=== PATIENT | male | born 1970 | race Two or more races ===

== ENCOUNTER 2020-06-18 18:02 | Outpatient (REF) | payer OTHER, SELFPAY ==
[2020-06-18 18:48] LABS: Amphetamine Screen Urine Not Detected (Not Detect); Barbiturates, Urine Not Detected (Not Detect); Benzodiazepines Screen Urine Not Detected (Not Detect); Cannabinoid Screen Urine POSITIVE (Not Detect); Cocaine Screen Urine Not Detected (Not Detect); Opiate Screen Urine Not Detected (Not Detect); Phencyclidine Screen Urine Not Detected (Not Detect)
== END 2020-06-18 18:03 | disposition home or self-care (01) ==
LOC: HO.LNP 18:02
PROVIDERS: Visit Provider Hospitalist
DX: F19.11 Other psychoactive substance abuse, in remission (principal)
CPT/HCPCS: 80307

== ENCOUNTER 2020-06-28 09:03 | Day surgery (SDC) | payer OTHER, SELFPAY ==
--- NOTE | 2020-06-25 10:23 | P.CONAN_ITS ---
Documented by User: Glory Tony 06/25/20 10:35 HPI - Anesthesia Eval Consult details Narrative: 50yo M for EGD last EGD 01/2020 with [facility] Past Medical History Medical History (Updated 06/25/20 @ 10:34 by Glory Tony) Anemia Arthritis Asthma Cellulitis COPD (chronic obstructive pulmonary disease) Dysphagia Hepatitis C Hiatal hernia History of drug abuse HTN (hypertension) Sciatica Family History Family History Father Diabetes Hypertension Mother Hypertension Surgical History Surgical History History of appendectomy History of laparoscopy Social History Social History Smoking Status: Never smoker Second Hand Smoke Exposure: No Use of substances other than those prescribed or required for medical reasons: Yes Advance Directives: No Advance Directives Information Provided: Yes Advance Directives on File: No Meds Allergies Allergy/AdvReac Type Severity Reaction Status Date / Time milk [MILK] Allergy Severe enterocolit Verified 06/18/20 13:47 is amoxicillin [From AUGMENTIN] Allergy Intermediate N/V Verified 06/18/20 13:47 clavulanic acid Allergy Intermediate N/V Verified 06/18/20 13:47 [From AUGMENTIN] wheat [WHEAT] Allergy Intermediate enterocolit Verified 06/18/20 13:47 is naproxen [NAPROXEN] Allergy Mild ULCERS Verified 06/18/20 13:47 NSAIDS (Non-Steroidal Allergy Unknown stomach Verified 06/18/20 13:47 Anti-Inflamma upset [NSAIDS] ibuprofen [From MOTRIN] AdvReac Mild ULCERS Verified 06/18/20 13:47 Home Medications Medication Instructions Recorded Confirmed Type albuterol sulfate 90 mcg/actuation 2 puff INHALATION Q6H PRN 06/11/20 History aerosol inhaler famotidine 40 mg tablet 40 mg PO BEDTIME 06/11/20 History ipratropium 0.5 mg-albuterol 3 mg 3 ml INHALATION Q6H PRN ml 06/11/20 History (2.5 mg base)/3 mL nebulization soln losartan 50 mg-hydrochlorothiazide 1 tab PO DAILY 06/11/20 History 12.5 mg tablet amlodipine 10 mg tablet 10 mg PO DAILY 06/18/20 06/18/20 History loratadine 10 mg tablet 10 mg PO DAILY 06/18/20 06/18/20 History montelukast 10 mg tablet 10 mg PO BEDTIME 06/18/20 06/18/20 History Exam Exam Date and Time: June 25, 2020 1023 Pertinent Lab Results Pertinent Lab Results: Laboratory Tests 03/16/20 03/16/20 02:13 02:13 WBC 12.9 H Hgb 13.0 L Hct 40.4 L Plt Count 200 Sodium 139 Potassium 4.3 Chloride 102 BUN 9 Creatinine 1.03 Narrative Narrative: EKG 2019: ST@102 Assessment and Plan Assessment Anesthesia Assessment: Chart Reviewed Documented by User: Korin Mathur 06/28/20 09:34 [facility] Past Medical History Medical History (Updated 06/25/20 @ 10:34 by Glory Tony) Anemia Arthritis Asthma Cellulitis COPD (chronic obstructive pulmonary disease) Dysphagia Hepatitis C Hiatal hernia History of drug abuse HTN (hypertension) Sciatica Family History Family History Father Diabetes Hypertension Mother Hypertension Surgical History Surgical History History of appendectomy History of laparoscopy Social History Social History Smoking Status: Never smoker Second Hand Smoke Exposure: No Use of substances other than those prescribed or required for medical reasons: Yes Advance Directives: No Advance Directives Information Provided: Yes Advance Directives on File: No Meds Allergies Allergy/AdvReac Type Severity Reaction Status Date / Time milk [MILK] Allergy Severe enterocolit Verified 06/18/20 13:47 is amoxicillin [From AUGMENTIN] Allergy Intermediate N/V Verified 06/18/20 13:47 clavulanic acid Allergy Intermediate N/V Verified 06/18/20 13:47 [From AUGMENTIN] wheat [WHEAT] Allergy Intermediate enterocolit Verified 06/18/20 13:47 is naproxen [NAPROXEN] Allergy Mild ULCERS Verified 06/18/20 13:47 NSAIDS (Non-Steroidal Allergy Unknown stomach Verified 06/18/20 13:47 Anti-Inflamma upset [NSAIDS] ibuprofen [From MOTRIN] AdvReac Mild ULCERS Verified 06/18/20 13:47 Home Medications Medication Instructions Recorded Confirmed Type albuterol sulfate 90 mcg/actuation 2 puff INHALATION Q6H PRN 06/11/20 History aerosol inhaler famotidine 40 mg tablet 40 mg PO BEDTIME 06/11/20 History ipratropium 0.5 mg-albuterol 3 mg 3 ml INHALATION Q6H PRN ml 06/11/20 History (2.5 mg base)/3 mL nebulization soln losartan 50 mg-hydrochlorothiazide 1 tab PO DAILY 06/11/20 History 12.5 mg tablet amlodipine 10 mg tablet 10 mg PO DAILY 06/18/20 06/18/20 History loratadine 10 mg tablet 10 mg PO DAILY 06/18/20 06/18/20 History montelukast 10 mg tablet 10 mg PO BEDTIME 06/18/20 06/18/20 History Exam Airway Mallampati Class: II TM Dist: >3cm Neck ROM: Full Loose/Missing/Broken Teeth: Yes (Missing a couple laterally) Heart: RrR Lungs: decreased breath Bs Assessment and Plan Assessment Anesthesia Assessment: Anesthesia Plan Discussed and Chart Reviewed Final Anesthetic Review NPO: Yes ASA Class: III Final Preanesthetic Review: Meds/Allgs Chart Reviewed and Consent Obtained/Reviewed Patient Risk: Intermediate Procedure Risk: Intermediate Anesthetic Plan Anesthetic Plan: MAC: Disposition: Standard PACU
[2020-06-25 14:48] VITALS: BMI 29.2
[2020-06-28 09:15] VITALS: BMI 39.9
[2020-06-28 09:34] VITALS: BP 151/107; PULSE 114; RESP 20; TEMP 35.8; O2SAT 94
[2020-06-28] MEDS: Lactated Ringers 1,000 ML 100 ML IVCONT (10:01)
[2020-06-28] MEDS: Metoclopramide HCl 10 MG/2 ML VIAL IVPUSH (10:21)
[2020-06-28 10:24] LABS: Amphetamine Screen Urine Not Detected (Not Detect); Barbiturates, Urine Not Detected (Not Detect); Benzodiazepines Screen Urine Not Detected (Not Detect); Cannabinoid Screen Urine Not Detected (Not Detect); Cocaine Screen Urine Not Detected (Not Detect); Opiate Screen Urine POSITIVE (Not Detect); Phencyclidine Screen Urine Not Detected (Not Detect)
--- NOTE | 2020-06-28 10:24 | MHC.SHP ---
Pre-Procedural Eval Section B Chief Complaint: Dysphagia Details of Present Illness: worsening dysphagia for 2 weeks, mostly soldis but also occ liquids, also noted worsening upper abdo pain, with nausea and vomiting, not responding to carafate, zofran Relevant Family History (Specify if Yes): No Relevant Social History: Other (specify) (ex IVDA) Present Medications: see Short Stay Collaborative assessment Medical History: Significant History (asthma, hep c, HTN, sciatica. food allergies) History of Previous Operations: Relevant previous surgery/procedure and date(s) (ex lap) Allergies: Allergies Allergy/AdvReac Type Severity Reaction Status Date / Time milk [MILK] Allergy Severe enterocolit Verified 06/18/20 13:47 is amoxicillin [From AUGMENTIN] Allergy Intermediate N/V Verified 06/18/20 13:47 clavulanic acid Allergy Intermediate N/V Verified 06/18/20 13:47 [From AUGMENTIN] wheat [WHEAT] Allergy Intermediate enterocolit Verified 06/18/20 13:47 is naproxen [NAPROXEN] Allergy Mild ULCERS Verified 06/18/20 13:47 NSAIDS (Non-Steroidal Allergy Unknown stomach Verified 06/18/20 13:47 Anti-Inflamma upset [NSAIDS] ibuprofen [From MOTRIN] AdvReac Mild ULCERS Verified 06/18/20 13:47 Review of Systems Sugical H&P ROS: Negative: Constitution, Cardiovascular, Respiratory, Neurological, Psychiatric, Hem-Onc, Allergic/Immunologic, Genitourinary, Musculoskeletal, Integumentary, Endocrine and Eyes/Ears/Nose/Throat and Yes, Specify: Gastrointestinal (as above) Exam Surgical H&P Exam: Normal: HEENT, Normal: Heart, Normal: Lungs, Normal: Extremities, Normal: Skin and Normal: Neurological and Significant Findings: Abdomen (small umbilical hernia, incisional hernia, scar) Plan Diagnosis/Plan: Unchanged Patient has been examined and remains a candidate for the planned procedure--EGD, dilation possible push enteroscopy
--- NOTE | 2020-06-28 10:26 | PM.OP ---
Brief Operative Note Date of procedure: 06/28/20 Pre-op diagnosis: dysphagia, abdo pain Post-op diagnosis: same Procedure: egd, see op note Surgeon: Ellen Swift MD Anesthesia: MAC Estimated blood loss (mL): 0 Condition: stable Disposition: PACU
--- NOTE | 2020-06-28 10:27 | W.PM.OPN ---
Operative Note Operative Note Narrative: Procedure Description: EGD FLEXIBLE TRANSORAL UPPER GASTROINTESTINAL ENDOSCOPY UPPER ENDOSCOPY Consent: Indications for the procedure and potential complications of bleeding, perforation, reaction to medications and missed diagnosis were discussed with the patient and informed consent was obtained. Instrument: Olympus GIF H 190 J mid size upper endoscope Monitoring: Vital signs and clinical assessment, continuous EKG monitoring, Pulse oximetry, Carbon Dioxide monitoring and blood pressure monitoring were done throughout the procedure. Procedure: The patient was placed in the left lateral decubitis position and pre-procedure medications were administered and a bite block was placed. The endoscope was inserted into the mouth and advanced under direct vision to the third part of duodenum. A careful inspection was made as the upper endoscope was withdrawn including a retroflexed examination of the proximal stomach; Findings and interventions are described below. Findings: Larynx:normal Esophagus: GE junction at 42 cm, diaphragm hiatus at 42 cm, ridging of esophagus noted which may be seen in EoE so bx taken from distal and proximal esophagus in seperate jars, also empirical dilation first with 17 mm bougie then 19 mm over savary wire, no tears seen Stomach: Patchy gastric erythema. Biopsies were obtained. Grade 2 flap valve on retroflexed examination of the cardia. Duodenum: Normal bulb and descending duodenum, bx taken Intervention: Biopsies as noted above, dilation Impression/Findings: gastritis possible EoE PLAN: diet as tolerated today if bx neg and sx persist then manometry testing CT abdoemn given abdominal pain can use linaclotide for constipation
--- NOTE | 2020-06-28 11:17 | PC.NURSE ---
DURRING EGD PT IV DISLOGED. NEW IV # 20 ANGIO RESTARTED BY ANESTHESIA IN LEFT AC.
[2020-06-28 11:23] VITALS: BP 106/72; PULSE 105; RESP 16; TEMP 36.6; O2SAT 93
[2020-06-28 11:50] VITALS: BP 140/92; PULSE 97; TEMP 36.6; O2SAT 94
--- NOTE | 2020-06-28 12:05 | HO.POSTANES ---
Post Anesthesia Evaluation Post Anesthesia Evaluation Vital Signs: Vital Signs Temp Pulse Resp BP Pulse Ox 06/28/20 11:23 97.9 F 105 H 16 106/72 93 06/28/20 09:34 96.5 F L 114 H 20 151/107 H 94 Anesthesia: Monitored Mental Status: Awake Pain Control: Satisfactory Nausea/Vomiting: None Hydration: Adequate Anesthesia-Related Issues: No Anes. Related Issues
== END 2020-06-28 12:32 | disposition home or self-care (01) ==
PROVIDERS: Nurse Practitioner; Visit Provider Internal Medicine Gastroenterology
PROC: 0DJ08ZZ Inspection of Upper Intestinal Tract, Via Natural or Artificial Opening Endoscopic (ICD-10-PCS; CPT 43235; principal; 2020-06-28 10:00)
DX: R13.10 Dysphagia, unspecified (principal); K29.80 Duodenitis without bleeding; K29.50 Unspecified chronic gastritis without bleeding; K21.00 Gastro-esophageal reflux disease with esophagitis, without bleeding; K44.9 Diaphragmatic hernia without obstruction or gangrene; J44.9 Chronic obstructive pulmonary disease, unspecified; I10 Essential (primary) hypertension; Z86.19 Personal history of other infectious and parasitic diseases; F11.20 Opioid dependence, uncomplicated; Z79.51 Long term (current) use of inhaled steroids; Z79.899 Other long term (current) drug therapy; Z88.1 Allergy status to other antibiotic agents; Z88.8 Allergy status to other drugs, medicaments and biological substances
CPT/HCPCS: 43248; 43239; 80307; 88305; 88313; 88341; 88342; C1769; J2250; J2765

== ENCOUNTER 2020-07-06 08:36 | Emergency (ER) | payer OTHER, SELFPAY ==
[2020-07-06 08:46] VITALS: BP 168/111; PULSE 98; RESP 20; TEMP 36.8; O2SAT 95; BMI 39.9
--- NOTE | 2020-07-06 09:12 | ED_ITS ---
HPI - Abdominal Pain General Chief Complaint: Abdominal Pain Stated Complaint: abd pain, vomiting Time Seen by Provider: 07/06/20 08:47 Source: patient Mode of arrival: ambulatory Limitations: no limitations History of Present Illness HPI narrative: 50 yo male with past medical history anemia, arthritis, asthma, COPD, hepatitis C, H/o IVDA, HTN, sciatica, hiaital hernia, dysphagia here with abdominal pain and vomiting x 3-4 days. Pt tells me he has chronic abdominal pain and is followed by Dr Swift. Being w/u for chronic abdominal pain, vomiting thought to be gastritis or EoE. Is currently on pepcid 40mg daily, carafate BID. Started linzess five days ago for symptoms of abdominal pain. Patient also tells me he is being treated for an acute on chronic LLE cellulitis. Has been on a several different antibiotics this month. Started minocyline 07/02 by dermatology. patient tells me acute on chronic abdominal pain since starting this with associated vomiting. NO diarrhea/urinary symptoms/fevers/chills. MD elicited complaint: abdominal pain Onset (ago): month(s) Pain Consistency: intermittent Location: diffuse Severity: mild Quality: cramping Radiation: none Migration to: no migration Exacerbating factors: medication Relieving factors: vomiting Associated symptoms: denies other symptoms Related Data Home Medications Medication Instructions Recorded Confirmed famotidine 40 mg tablet 40 mg PO BEDTIME 06/11/20 ipratropium 0.5 mg-albuterol 3 mg 3 ml INHALATION Q6H PRN ml 06/11/20 (2.5 mg base)/3 mL nebulization soln losartan 50 mg-hydrochlorothiazide 1 tab PO DAILY 06/11/20 12.5 mg tablet amlodipine 10 mg tablet 10 mg PO DAILY 06/18/20 06/18/20 loratadine 10 mg tablet 10 mg PO DAILY 06/18/20 06/18/20 Previous Rx's Medication Instructions Recorded sucralfate 100 mg/mL oral 10 ml PO BID #420 ml 06/22/20 suspension linaclotide 290 mcg capsule 290 mcg PO QAM 30 Days #30 cap 06/29/20 pantoprazole 40 mg tablet,delayed 40 mg PO BID #60 tab 06/29/20 release montelukast 10 mg tablet 10 mg PO BEDTIME #90 tab 07/01/20 albuterol sulfate 90 mcg/actuation 2 puff PO Q6H PRN #6.7 g 07/02/20 aerosol inhaler ondansetron HCl 4 mg tablet 4 mg PO Q8H #60 tab 07/05/20 sucralfate [Carafate] 10 ml PO QID #200 ml 07/06/20 Allergies Allergy/AdvReac Type Severity Reaction Status Date / Time milk [MILK] Allergy Severe enterocolit Verified 06/18/20 13:47 is amoxicillin [From AUGMENTIN] Allergy Intermediate N/V Verified 06/18/20 13:47 clavulanic acid Allergy Intermediate N/V Verified 06/18/20 13:47 [From AUGMENTIN] wheat [WHEAT] Allergy Intermediate enterocolit Verified 06/18/20 13:47 is naproxen [NAPROXEN] Allergy Mild ULCERS Verified 06/18/20 13:47 NSAIDS (Non-Steroidal Allergy Unknown stomach Verified 06/18/20 13:47 Anti-Inflamma upset [NSAIDS] ibuprofen [From MOTRIN] AdvReac Mild ULCERS Verified 06/18/20 13:47 Review of Systems Review of Systems Yes all other systems are reviewed and are negative Constitutional: Reports no additional constitutional complaints, Denies body ache(s), Denies chills, Denies fever(s), Denies headache(s) and Denies weakness Eyes: Reports no additional eye complaints and Denies change in vision Reports system reviewed and no additional complaints, except as documented, Denies dizziness, Denies headache(s), Denies nasal congestion, Denies nasal discharge and Denies neck pain Cardiovascular: Reports no additional cardiovascular complaints, Denies chest pain, Denies leg edema and Denies dyspnea Respiratory: Reports no additional respiratory complaints, Denies cough and Denies dyspnea Gastrointestinal: Reports no additional gastrointestinal complaints, Reports abdominal pain, Denies diarrhea, Reports nausea and Reports vomiting Genitourinary: Denies urinary incontinence Musculoskeletal: Reports no additional musculoskeletal complaints, Denies back pain, Denies arthralgias, Denies joint swelling, Denies neck pain, Denies numbne ss and Denies tingling Skin/Breast: Reports system reviewed and no additional complaints, except as docu and Denies rash Reports system reviewed and no additional complaints, except as documented, Denies Abnormal speech present, Denies dizziness, Denies headache(s), Denies numbness, Denies tingling and Denies weakness Physical Exam Vital Signs: Vital Signs: Vital Signs Temp Pulse Resp BP Pulse Ox 07/06/20 10:34 91 20 153/113 H 95 07/06/20 08:46 98.2 F 98 20 168/111 H 95 Body Mass Index 39.9 Const: General: cooperative, healthy appearing, comfortable and no acute distress Orientation/consciousness: patient oriented x3 Limitations: no limitations HENMT: Head: Yes normal to inspection Ears: hearing grossly normal bilaterally General nose exam: Normal external nose present Face and sinus: Yes normal facial exam Mouth: Normal oral and palatal mucosa present Throat: Yes posterior oropharynx normal Eyes: General: appearance normal, both eyes and all related structures Pupils: Equal, round and reactive pupils present Neck: Neck: Yes normal visual inspection Chest: Chest palpation & inspection: normal inspection of the chest Resp: Effort & Inspection: normal respiratory effort Auscultation: clear to auscultation bilaterally Cardio: Rate: regular rate Rhythm: regular rhythm Peripheral pulses: Peripheral pulses 2+ throughout GI: Other: Mild diffuse tenderness. No focal tenderness Inspection: Yes normal to inspection Palpation (GI): Soft to palpation and nontender Auscultation: normal bowel sounds Back/Spine/Pelvis: Thoracic/Lumbar Spine: thoracic and lumbar spine normal to inspection Skin: General skin exam: no rashes or lesions noted Neuro: General: patient oriented x3, no focal motor deficits and normal sensation to monofilament Cranial nerves: Yes Equal, round and reactive pupils present Cognition (Neuro): normal cognition Speech: No Abnormal speech present Gait exam (Neuro): Normal gait present Motor exam (neuro): 5/5 motor strength present throughout Extrem: General: Yes normal to inspection Course Course Course Narrative: 50 here male here with diffuse AP, vomiting acute on chronic since starting minocycline for a LLE cellulitis. WIll check labs, UA. Give NSB, antiemetic, PPI and GI cocktail. 1210-labs unremarkable. UA negative. The patient is feeling improved on discharge. Tolerating [place] josh with no issues. Repeat abdominal exam benign, soft and nontender. Likely some gastritis secondary to recent antibiotic use. We discussed discontinuing his antibiotic. 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 We will increase his Carafate to 4 times daily. Have him do a mild diet and continue all his other medications. Have him follow-up with his GI doctor has on. Reviewed worrisome signs and symptoms and when to return to the emergency department. Comfortable discharge home. MDM - Abdominal Pain MDM Narrative Medical decision making narrative: Considered PUD, gastritis, gerd Medical Records Attestation: I reviewed the patient's medical records. Lab Data Attestation: I reviewed the patient's lab results. Result diagrams: 07/06/20 09:06 07/06/20 09:06 Labs: Lab Results 07/06/20 07/06/20 07/06/20 Range/Units 09:06 09:06 09:06 WBC 10.9 H (4.8-10.8) X10*3/uL RBC 4.30 L (4.60-5.80) X10*6/uL Hgb 13.7 L (14.0-18.0) g/dl Hct 41.5 L (42-52) % MCV 96.5 (80-98) fL MCH 31.9 (27.0-33.0) pg MCHC 33.0 (31.0-36.0) g/dl RDW 12.9 (11.0-16.0) % Plt Count 210 (160-400) X10*3/uL MPV 10.9 (9.4-12.4) fL Immature Gran % (Auto) 0.9 H (0.0-0.4) % Neut % (Auto) 53.0 (45-73) % Lymph % (Auto) 30.1 (20-40) % [place] % (Auto) 8.6 (2-11) % Eos % (Auto) 6.7 H (0-4) % Baso % (Auto) 0.7 (0-2) % Lymph # (Auto) 3.3 (1.2-4.9) X10*3/uL [place] # (Auto) 0.9 (0.1-1.2) X10*3/uL Eos # (Auto) 0.7 H (0.0-0.4) X10*3/uL Baso # (Auto) 0.1 (0.0-0.2) X10*3/uL Abs Immat Gran (auto) 0.10 H (0.00-0.03) X10*3/uL Absolute Neuts (auto) 5.8 (2.0-8.3) X10*3/uL Absolute Nucleated RBC 0.000 (0.0-0.012) X10*3/uL Nucleated RBC % (auto) 0.0 (0.0-0.2) /100WBC Hold Blue Top SEE NOTE Sodium 139 (135-145) mmol/L Potassium 4.0 (3.3-5.1) mmol/l Chloride 101 (96-108) mmol/L Carbon Dioxide 29 (22-29) mmol/L Anion Gap 13 (12-20) BUN 19 H (9-16) mg/dL Creatinine 0.96 (0.5-1.4) mg/dL Estim Creat Clear Calc 110.6 Estimated GFR > 60 Random Glucose 227 H (60-115) mg/dL Calcium 9.2 (8.4-10.2) mg/dL Total Bilirubin 0.5 (0.0-1.0) mg/dL Direct Bilirubin (0.0-0.5) mg/dL AST 28 (5-37) U/L ALT 37 (0-40) U/L Alkaline Phosphatase 119 H (39-117) U/L Total Protein 7.3 (6.5-8.0) g/dL Albumin 4.3 (3.5-5.0) g/dL Lipase 27 (8-78) U/L 07/06/20 Range/Units 09:06 WBC (4.8-10.8) X10*3/uL RBC (4.60-5.80) X10*6/uL Hgb (14.0-18.0) g/dl Hct (42-52) % MCV (80-98) fL MCH (27.0-33.0) pg MCHC (31.0-36.0) g/dl RDW (11.0-16.0) % Plt Count (160-400) X10*3/uL MPV (9.4-12.4) fL Immature Gran % (Auto) (0.0-0.4) % Neut % (Auto) (45-73) % Lymph % (Auto) (20-40) % [place] % (Auto) (2-11) % Eos % (Auto) (0-4) % Baso % (Auto) (0-2) % Lymph # (Auto) (1.2-4.9) X10*3/uL [place] # (Auto) (0.1-1.2) X10*3/uL Eos # (Auto) (0.0-0.4) X10*3/uL Baso # (Auto) (0.0-0.2) X10*3/uL Abs Immat Gran (auto) (0.00-0.03) X10*3/uL Absolute Neuts (auto) (2.0-8.3) X10*3/uL Absolute Nucleated RBC (0.0-0.012) X10*3/uL Nucleated RBC % (auto) (0.0-0.2) /100WBC Hold Blue Top Sodium (135-145) mmol/L Potassium (3.3-5.1) mmol/l Chloride (96-108) mmol/L Carbon Dioxide (22-29) mmol/L Anion Gap (12-20) BUN (9-16) mg/dL Creatinine (0.5-1.4) mg/dL Estim Creat Clear Calc Estimated GFR Random Glucose (60-115) mg/dL Calcium (8.4-10.2) mg/dL Total Bilirubin 0.5 (0.0-1.0) mg/dL Direct Bilirubin 0.2 (0.0-0.5) mg/dL AST 28 (5-37) U/L ALT 37 (0-40) U/L Alkaline Phosphatase 119 H (39-117) U/L Total Protein 7.3 (6.5-8.0) g/dL Albumin 4.3 (3.5-5.0) g/dL Lipase (8-78) U/L Discharge Plan Discharge Clinical Impression: Gastritis Patient Disposition: Home, Self-Care Instructions: Gastritis (ED) Additional Instructions: Continue your medications with the exception of minocycline. Please stop this and call your chrome plater helper to have it changed to a different antibiotic. I am increasing her Carafate to 4 times daily from twice daily. Call Dr. Swift for follow-up if no improvement in several days Prescriptions: New sucralfate [Carafate] 100 mg/mL suspension 10 ml PO QID Qty: 200 RF: 0 No Action sucralfate [Carafate] 100 mg/mL suspension 10 ml PO BID Qty: 420 RF: 2 Linzess 290 mcg capsule 290 mcg PO QAM 30 Days Qty: 30 RF: 3 pantoprazole 40 mg tablet,delayed release (DR/EC) 40 mg PO BID Qty: 60 RF: 3 montelukast 10 mg tablet 10 mg PO BEDTIME Qty: 90 RF: 11 albuterol sulfate 90 mcg/actuation HFA aerosol inhaler 2 puff PO Q6H PRN (Reason: shortness of breath or wheezing) Qty: 6.7 RF: 1 ondansetron HCl [Zofran] 4 mg tablet 4 mg PO Q8H Qty: 60 RF: 1 amlodipine 10 mg tablet 10 mg PO DAILY RF: 0 loratadine 10 mg tablet 10 mg PO DAILY RF: 0 Referrals: Ellen Swift MD [Physician] - 2 days Emilee Bacon NP [Primary Care Provider] - 2 days Interventions: ED Discharge Assessment Last Done: 07/06/20 12:51 Discharge Date/Time: 07/06/20 12:52 [facility] Past Medical History Attestation statement: The following information was validated with the patient. Source: obtained from family and nursing notes reviewed Medical History Anemia Arthritis Asthma Cellulitis COPD (chronic obstructive pulmonary disease) Dysphagia Hepatitis C Hiatal hernia History of drug abuse HTN (hypertension) Sciatica Severe persistent asthma Surgical History History of appendectomy History of laparoscopy Family History Family History Father Diabetes Hypertension Mother Hypertension Social History Social History Smoking Status: Never smoker Second Hand Smoke Exposure: No Use of substances other than those prescribed or required for medical reasons: No Advance Directives: No Advance Directives Information Provided: No
[2020-07-06 09:15] LABS: MANUAL DIFF FLAG NO
[2020-07-06 09:16] LABS: Basophils Absolute Auto 0.1 X10*3/uL (0.0-0.2); Basophils Percent Auto 0.7 % (0-2); Eosinophils Absolute Auto 0.7 X10*3/uL (0.0-0.4); Eosinophils Percent Auto 6.7 % (0-4); Hematocrit 41.5 % (42-52); Hemoglobin 13.7 g/dl (14.0-18.0); Imm Gran Pct Auto 0.9 % (0.0-0.4); Lymphocytes Absolute Auto 3.3 X10*3/uL (1.2-4.9); Lymphocytes Percent Auto 30.1 % (20-40); Mean Corpuscular Hemoglobin 31.9 pg (27.0-33.0); Mean Corpuscular Volume 96.5 fL (80-98); Mean Platelet Volume 10.9 fL (9.4-12.4); Monocytes Absolute Auto 0.9 X10*3/uL (0.1-1.2); Monocytes Percent Auto 8.6 % (2-11); Neutrophils Absolute Auto 5.8 X10*3/uL (2.0-8.3); Platelet Count 210 X10*3/uL (160-400); Red Cell Distribution Width 12.9 % (11.0-16.0); White Blood Count 10.9 X10*3/uL (4.8-10.8)
[2020-07-06] MEDS: 0.9 % Sodium Chloride 1,000 ML 999 ML IVCONT (09:19)
[2020-07-06] MEDS: ondansetron HCL 4 MG/2 ML VIAL IVPUSH (09:19)
[2020-07-06] MEDS: Lidocaine HCl Viscous 2 % 15 ML SOLUTION MUCOUS MEM (09:40)
[2020-07-06] MEDS: Famotidine/PF 20 MG/2 ML VIAL IVPUSH (09:40)
[2020-07-06] MEDS: Magnesium Hydrox/Alum Hydrox 30 ML ORAL.SUSP PO (09:40)
[2020-07-06 09:41] LABS: Alanine Aminotransferase 37 U/L (0-40); Albumin Level 4.3 g/dL (3.5-5.0); Alkaline Phosphatase 119 U/L (39-117); Anion Gap 13 (12-20); Aspartate Amino Transferase 28 U/L (5-37); Bilirubin Direct 0.2 mg/dL (0.0-0.5); Bilirubin Total 0.5 mg/dL (0.0-1.0); Blood Urea Nitrogen 19 mg/dL (9-16); Calcium 9.2 mg/dL (8.4-10.2); Carbon Dioxide 29 mmol/L (22-29); Chloride 101 mmol/L (96-108); Creatinine Clr Calc Pharmacy 110.6; Estimated Glomerular Filt Rate > 60; Glucose Random 227 mg/dL (60-115); Lipase 27 U/L (8-78); Sodium 139 mmol/L (135-145); Total Protein 7.3 g/dL (6.5-8.0)
--- NOTE | 2020-07-06 09:44 | PC.NURSE ---
pt still reports some nausea after the zofran, but no vomiting at this time., pt medicated with the restof the medications per md orders
[2020-07-06 10:34] VITALS: BP 153/113; PULSE 91; RESP 20; O2SAT 95
[2020-07-06] MEDS: Metoclopramide HCl 10 MG/2 ML VIAL IVPUSH (10:36)
[2020-07-06] MEDS: diphenhydrAMINE HCL 50 MG/ML VIAL IVPUSH (10:36)
[2020-07-06] MEDS: Dicyclomine HCl 10 MG CAPSULE 20 MG PO (10:36)
--- NOTE | 2020-07-06 11:25 | PC.NURSE ---
pt is currently sleeping, respirations even and unlabored
--- NOTE | 2020-07-06 12:45 | PC.NURSE ---
pt tolerating po liquids at this time
== END 2020-07-06 12:52 | disposition home or self-care (01) ==
PROVIDERS: Emergency Provider Emergency Medicine; PCP Hospitalist
DX: K29.00 Acute gastritis without bleeding (principal); R11.10 Vomiting, unspecified; Z79.899 Other long term (current) drug therapy
CPT/HCPCS: 36415; 80053; 80076; 82248; 83690; 85025; 96361; 96374; 96375; 99284; J1200; J2405; J2765

== ENCOUNTER → 2020-07-16 09:25 | Outpatient (BNVA) | payer OTHER, SELFPAY | PROVIDERS: PCP Hospitalist; Referring Provider Hospitalist; Visit Provider Hospitalist | DX: J45.50 Severe persistent asthma, uncomplicated (principal); H60.91 Unspecified otitis externa, right ear; Z79.52 Long term (current) use of systemic steroids; Z79.899 Other long term (current) drug therapy | CPT/HCPCS: 99212 ==

== ENCOUNTER 2020-08-02 11:09 | Outpatient (REF) | payer OTHER, SELFPAY ==
--- NOTE | 2020-08-02 11:11 | CT_ITS ---
EXAMINATION: CT ABDOMEN AND PELVIS WITHOUT CONTRAST CLINICAL INFORMATION: History of exploratory laparotomy and incisional hernia. COMPARISON: None TECHNIQUE: Multidetector volumetric imaging was performed from the superior aspect of the liver through the pubic symphysis with oral 900 mL Redicat contrast. Sagittal and coronal reformatted images were obtained on the technologist's workstation. This CT examination was performed using dose optimization techniques as appropriate, variously including the following: *Automated exposure control *Adjustment of mA and/or kV according to patient size (this includes techniques or standardized protocols for targeted exams where dose is matched to indication/reason for exam; i.e. extremities or head) *Use of iterative reconstruction technique DLP: 793 mGy-cm FINDINGS: LUNG BASES: Focal nodular thickening of left lower lobe pleura is noted. There is focal atelectasis right CP angle. The heart size is normal. LIVER, GALLBLADDER, AND BILIARY TREE: The liver is normal in size, shape, and diffusely hypoattenuated. No focal hepatic lesion or biliary ductal dilatation is present. The gallbladder is unremarkable with no evidence of radiopaque gallstones, gallbladder wall thickening, or obvious pericholecystic inflammatory changes. PANCREAS: Unremarkable. SPLEEN: Unremarkable. ADRENAL GLANDS: Unremarkable. KIDNEYS AND URETERS: The kidneys are normal in size, shape, and attenuation. No hydronephrosis, hydroureter, or calculi seen. No perinephric stranding. BLADDER: Unremarkable. GASTROINTESTINAL TRACT: There is moderate scattered stool seen throughout the colon without any significant distention. The small bowel loops are normal caliber. Appendix is not visualized likely surgically removed. ABDOMINAL WALL: A small umbilical hernia containing fat is noted. There are postsurgical changes along the midline infraumbilical region. LYMPH NODES: Normal. VASCULAR: Unremarkable. PELVIC VISCERA: The prostate gland is normal size with punctate central gland calcification. No free fluid seen. No abnormal pelvic or inguinal lymph nodes seen. OSSEOUS STRUCTURES: No lytic or sclerotic process seen. CT/CT abdomen pelvis wo con IMPRESSION: Moderate constipation. No acute process seen. Diffuse hepatic steatosis without focal lesion seen.
[2020-08-02] MEDS: Barium Sulfate Oral (Mocha) 450 ML ORAL.SUSP 900 ML PO (13:55)
== END 2020-08-02 11:10 | disposition home or self-care (01) ==
LOC: HO.CT 11:09
PROVIDERS: Visit Provider Internal Medicine Gastroenterology
DX: R10.13 Epigastric pain (principal)
CPT/HCPCS: 74176

== ENCOUNTER → 2020-08-11 10:03 | Outpatient (BNVA) | payer OTHER, SELFPAY | PROVIDERS: PCP Hospitalist; Visit Provider Surgery | DX: K64.4 Residual hemorrhoidal skin tags (principal); K64.8 Other hemorrhoids | CPT/HCPCS: 46600; 99202 ==

== ENCOUNTER 2020-08-11 16:57 | Outpatient (REF) | payer OTHER, SELFPAY | END 2020-08-11 16:58 | disposition home or self-care (01) | LOC: HO.LAB 16:57 | PROVIDERS: PCP Hospitalist; Visit Provider Internal Medicine | DX: Z20.828 Contact with and (suspected) exposure to other viral communicable diseases (principal) | CPT/HCPCS: C9803; U0003 ==

== ENCOUNTER 2020-08-22 11:22 | Emergency (ER) | payer OTHER, SELFPAY ==
--- NOTE | 2020-08-22 08:20 | ECG_ITS ---
Test Reason : CHEST PAIN Blood Pressure : / mmHG Vent. Rate : 110 BPM Atrial Rate : 110 BPM P-R Int : 144 ms QRS Dur : 068 ms QT Int : 320 ms P-R-T Axes : 068 -17 012 degrees QTc Int : 433 ms Sinus tachycardia Otherwise normal ECG When compared to the previous EKG of No significant changes seen Referred By: Austin Bravo Electronically Signed By:DEANNE SORIA MD
[2020-08-22 11:53] VITALS: BP 145/92; PULSE 120; RESP 18; TEMP 37.2; O2SAT 94; BMI 40.7
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
[2020-08-22 12:24] VITALS: BP 142/95; PULSE 123; RESP 22; TEMP 37.4; O2SAT 92
[2020-08-22] MEDS: 0.9 % Sodium Chloride 1,000 ML 999 ML IV (12:38)
[2020-08-22] MEDS: Lidocaine HCl Viscous 2 % 15 ML SOLUTION 10 ML MUCOUS MEM (12:47)
[2020-08-22] MEDS: Magnesium Hydrox/Alum Hydrox 30 ML ORAL.SUSP PO (12:48)
--- NOTE | 2020-08-22 12:48 | XR_ITS ---
EXAMINATION: PORTABLE CHEST 1 VIEW CLINICAL INFORMATION: Chest pain. COMPARISON: 03/26/2020. TECHNIQUE: Portable frontal view of the chest was obtained. FINDINGS: Lungs well-expanded. Linear markings at the left base similar to the prior study may reflect component of scarring or atelectasis. I do not appreciate any acute superimposed focal infiltrate, significant effusion, overt edema, or pneumothorax. Cardiac silhouette is prominent but unchanged. XR/XR chest 1V IMPRESSION: Chronic appearing changes at the left base but no acute process seen when compared to the 03/26/2020 exam.
[2020-08-22 12:49] LABS: Basophils Absolute Auto 0.1 X10*3/uL (0.0-0.2); Basophils Percent Auto 0.3 % (0-2); Eosinophils Absolute Auto 0.1 X10*3/uL (0.0-0.4); Eosinophils Percent Auto 0.5 % (0-4); Hematocrit 44.4 % (42-52); Hemoglobin 14.7 g/dl (14.0-18.0); Imm Gran Abs Auto 0.12 X10*3/uL (0.00-0.03); Imm Gran Pct Auto 0.8 % (0.0-0.4); Lymphocytes Absolute Auto 2.4 X10*3/uL (1.2-4.9); Mean Corpuscular HGB Conc 33.1 g/dl (31.0-36.0); Mean Corpuscular Hemoglobin 31.7 pg (27.0-33.0); Mean Corpuscular Volume 95.7 fL (80-98); Mean Platelet Volume 11.4 fL (9.4-12.4); Monocytes Absolute Auto 0.7 X10*3/uL (0.1-1.2); Monocytes Percent Auto 4.7 % (2-11); Neutrophils Absolute Auto 11.8 X10*3/uL (2.0-8.3); Neutrophils Percent Auto 77.7 % (45-73); Platelet Count 215 X10*3/uL (160-400); Red Blood Count 4.64 X10*6/uL (4.60-5.80); Red Cell Distribution Width 12.7 % (11.0-16.0); White Blood Count 15.2 X10*3/uL (4.8-10.8)
[2020-08-22 12:50] LABS: MANUAL DIFF FLAG NO
--- NOTE | 2020-08-22 12:50 | PC.NURSE ---
In addition to abd pain pt also reports 5/10 chest pain. Laying flat and coughing makes his chest pain worse. Sats 92-95% on room air. EKG obtained and d-dimer and troponin ordered and to be obtained.
[2020-08-22 13:16] LABS: Alanine Aminotransferase 56 U/L (0-40); Albumin Level 4.7 g/dL (3.5-5.0); Alkaline Phosphatase 124 U/L (39-117); Anion Gap 16 (12-20); Aspartate Amino Transferase 41 U/L (5-37); Bilirubin Total 0.4 mg/dL (0.0-1.0); Blood Urea Nitrogen 17 mg/dL (9-16); Calcium 10.2 mg/dL (8.4-10.2); Carbon Dioxide 25 mmol/L (22-29); Chloride 101 mmol/L (96-108); Creatinine Clr Calc Pharmacy 89.4; Estimated Glomerular Filt Rate > 60; Glucose Random 260 mg/dL (60-115); Potassium 4.7 mmol/l (3.3-5.1); Sodium 137 mmol/L (135-145)
[2020-08-22 13:24] LABS: INTERNATIONAL NORM RATIO 1.1 (0.9-1.1); Prothrombin Time 13.1 SEC (10.8-13.0)
[2020-08-22 13:26] LABS: Influenza A PCR NEGATIVE (Negative); Influenza B PCR NEGATIVE (Negative); Resp Syncy Virus RNA Qual PCR NEGATIVE (Negative); SARS COV2 PCR INHOUSE NEGATIVE (Negative)
[2020-08-22 13:27] LABS: D Dimer 237 NG/ML; Partial Thromboplastin Time 31.4 SEC (24.1-38.0)
[2020-08-22 13:53] LABS: Troponin-I High Sensitivity 3.5 ng/L (<3.5-35.0)
--- NOTE | 2020-08-22 14:25 | PC.NURSE ---
Pt give GI cocktail for pain with no relief which was freported to [employer]NAGER [employer]MET[employer]. [employer]GER [employer] ordered pain medication however pt felt that this process was taking too long and left AMA at 1410. PT was educated on resons to stay for further examination and made aware of his elevated wbc per [employer]GER [employer]. MANAGER [employer] also made attempt to educate pt on staying and it was explained that we had ordered medication for his pain. Still the patient wanted to leave without treatment or further workup.
== END 2020-08-22 14:15 | disposition left against medical advice (07) ==
PROVIDERS: Nurse Practitioner Primary Care; Emergency Provider Emergency Medicine; PCP Hospitalist
DX: R10.9 Unspecified abdominal pain (principal); R00.0 Tachycardia, unspecified; D72.829 Elevated white blood cell count, unspecified; I10 Essential (primary) hypertension; J45.909 Unspecified asthma, uncomplicated
CPT/HCPCS: 0241U; 36415; 71045; 80053; 84484; 85025; 85379; 85610; 85730; 93005; 96361; 96374; 96376; 99284

== ENCOUNTER 2020-08-23 11:02 | Emergency (ER) | payer OTHER, SELFPAY ==
[2020-08-23 11:13] VITALS: BP 167/101; PULSE 96; RESP 18; TEMP 36.6; O2SAT 97; BMI 40.7
[2020-08-23 13:14] LABS: MANUAL DIFF FLAG NO
[2020-08-23 13:19] LABS: Hematocrit 44.2 % (42-52); Hemoglobin 14.5 g/dl (14.0-18.0); Mean Corpuscular HGB Conc 32.8 g/dl (31.0-36.0); Mean Corpuscular Hemoglobin 31.5 pg (27.0-33.0); Mean Corpuscular Volume 96.1 fL (80-98); Mean Platelet Volume 11.2 fL (9.4-12.4); Platelet Count 214 X10*3/uL (160-400); Red Cell Distribution Width 12.9 % (11.0-16.0)
[2020-08-23 13:20] LABS: Basophils Absolute Auto 0.1 X10*3/uL (0.0-0.2); Basophils Percent Auto 0.6 % (0-2); Eosinophils Absolute Auto 0.5 X10*3/uL (0.0-0.4); Eosinophils Percent Auto 4.3 % (0-4); Imm Gran Abs Auto 0.06 X10*3/uL (0.00-0.03); Imm Gran Pct Auto 0.5 % (0.0-0.4); Lymphocytes Absolute Auto 3.5 X10*3/uL (1.2-4.9); Lymphocytes Percent Auto 31.7 % (20-40); Monocytes Absolute Auto 0.8 X10*3/uL (0.1-1.2); Monocytes Percent Auto 6.8 % (2-11); Neutrophils Absolute Auto 6.2 X10*3/uL (2.0-8.3); Neutrophils Percent Auto 56.1 % (45-73)
[2020-08-23 13:40] LABS: Anion Gap 15 (12-20); Blood Urea Nitrogen 16 mg/dL (9-16); Calcium 9.9 mg/dL (8.4-10.2); Carbon Dioxide 27 mmol/L (22-29); Chloride 100 mmol/L (96-108); Creatinine Clr Calc Pharmacy 108.4; Estimated Glomerular Filt Rate > 60; Glucose Random 190 mg/dL (60-115); Potassium 4.1 mmol/l (3.3-5.1); Sodium 138 mmol/L (135-145)
--- NOTE | 2020-08-23 13:48 | ED_ITS ---
HPI - Abdominal Pain General Chief Complaint: Abdominal Pain Stated Complaint: stomach pain Time Seen by Provider: 08/23/20 13:48 Source: patient and old records reviewed Mode of arrival: ambulatory Limitations: no limitations History of Present Illness HPI narrative: seen yesterday has chronic abdominal pain with GI workup hx of substance abuse, trauma to abdomen resulting in ex lap MD elicited complaint: abdominal pain Pertinent past history: diverticulitis and other (chronic abdominal pain) Onset (ago): day(s) (3) Pain Consistency: constant Location: diffuse Severity: similar to previous episodes Quality: cramping and fullness Radiation: none Migration to: no migration Exacerbating factors: eating, vomiting and movement Relieving factors: nothing Context: history of similar episodes Associated symptoms: nausea, vomiting and constipation Related Data Home Medications Medication Instructions Recorded Confirmed famotidine 40 mg tablet 40 mg PO BEDTIME 06/11/20 07/16/20 ipratropium 0.5 mg-albuterol 3 mg 3 ml INHALATION Q6H PRN ml 06/11/20 07/16/20 (2.5 mg base)/3 mL nebulization soln losartan 50 mg-hydrochlorothiazide 1 tab PO DAILY 06/11/20 07/16/20 12.5 mg tablet amlodipine 10 mg tablet 10 mg PO DAILY 06/18/20 07/16/20 loratadine 10 mg tablet 10 mg PO DAILY 06/18/20 07/16/20 dupilumab 200 mg/1.14 mL 200 mg SUBCUT Q2W 07/16/20 07/16/20 subcutaneous syringe flu vacc [id number] 6mos up(PF) ml IM ONCE 07/16/20 07/16/20 minocycline 100 mg capsule 100 mg PO BID 07/16/20 07/16/20 Previous Rx's Medication Instructions Recorded sucralfate 100 mg/mL oral 10 ml PO BID #420 ml 06/22/20 suspension linaclotide 290 mcg capsule 290 mcg PO QAM 30 Days #30 cap 06/29/20 pantoprazole 40 mg tablet,delayed 40 mg PO BID #60 tab 06/29/20 release montelukast 10 mg tablet 10 mg PO BEDTIME #90 tab 07/01/20 albuterol sulfate 90 mcg/actuation 2 puff PO Q6H PRN #6.7 g 07/02/20 aerosol inhaler sucralfate [Carafate] 10 ml PO QID #200 ml 07/06/20 cromolyn 100 mg/5 mL oral 200 mg PO QID 30 Days #1200 ml 07/12/20 concentrate famotidine 40 mg tablet 40 mg PO BEDTIME #30 tab 07/12/20 linaclotide 72 mcg capsule 72 mcg PO DAILY #1 cap 07/12/20 ipratropium 20 mcg-albuterol 100 1 puff INHALATION QID 30 Days #4 g 07/16/20 mcg/actuation mist for inhalation [id number] 3.3 4 drp OTIC (EAR) RIGHT QID 10 Days 07/19/20 mg-3 mg-10 mg-0.5 mg/mL ear #10 ml drops,susp dgugqxmd-[id number]-uatjdztjw 3.5 4 drp OTIC (EAR) RIGHT Q8H 10 Days 07/20/20 mg-10,000 unit/mL-1 % ear #10 ml drops,susp ondansetron HCl 4 mg tablet 4 mg PO Q8H #60 tab 07/20/20 meclizine 12.5 mg tablet 12.5 mg PO BID #30 tab 07/22/20 docusate sodium 100 mg capsule 100 mg PO DAILY #30 cap 08/11/20 menthol 0.44 %-zinc oxide 20.6 % 1 appl TOPICAL TID PRN #113 g 08/11/20 topical ointment psyllium husk 3.4 gram/5.4 gram 1 tbsp PO DAILY #660 g 08/11/20 oral powder ondansetron 4 mg PO Q8H PRN #20 tab 08/23/20 sennosides [senna] 8.6 mg PO BEDTIME PRN #30 cap 08/23/20 Allergies Allergy/AdvReac Type Severity Reaction Status Date / Time milk [MILK] Allergy Severe enterocolit Verified 08/11/20 10:14 is amoxicillin [From AUGMENTIN] Allergy Intermediate N/V Verified 08/11/20 10:14 clavulanic acid Allergy Intermediate N/V Verified 08/11/20 10:14 [From AUGMENTIN] wheat [WHEAT] Allergy Intermediate enterocolit Verified 08/11/20 10:14 is naproxen [NAPROXEN] Allergy Mild ULCERS Verified 08/11/20 10:14 NSAIDS (Non-Steroidal Allergy Unknown stomach Verified 08/11/20 10:14 Anti-Inflamma upset [NSAIDS] ibuprofen [From MOTRIN] AdvReac Mild ULCERS Verified 08/11/20 10:14 Review of Systems Review of Systems Constitutional : No Weight loss, No Fever, No Chills ENT/Mouth : No sore throat, No Rhinorrhea Eyes: No Swelling, No Redness Cardiovascular : No Chest Pain, No SOB, NoEdema Respiratory : No Cough, No Sputum, No Wheezing Gastrointestinal : Positive Nausea, Positive Vomiting, no Diarrhea, positive abdominal Pain, No Hematochezia, No Melena, pos constipation Genitourinary : No Dysuria, No Urinary Frequency, No Hematuria, No Urgency Musculoskeletal : No joint pain, No Myalgias, No Joint Swelling Skin : No Skin Lesions, No rash Neuro : No Weakness, No Numbness, No Dizziness, No Headache Psych : No Anxiety/Panic, No Depression Heme/Lymph: No Bruising, No Lymphadenopathy Endocrine : No Polyuria, No Polydipsia All other systems reviewed and are negative. Physical Exam Vital Signs: Vital Signs: Last Vital Signs Temp 98.4 F 08/23/20 15:00 Pulse 89 08/23/20 15:00 Resp 16 08/23/20 15:00 BP 140/88 H 08/23/20 15:00 Pulse Ox 95 08/23/20 15:00 Body Mass Index 40.7 Appearance: Alert. Oriented X3. No acute distress. Eyes: Pupils equal, round and reactive to light. ENT: Pharynx normal. Neck: Normal inspection. Neck supple. CVS: Normal heart rate and rhythm. Pulses normal. Respiratory: No respiratory distress. Breath sounds normal. Abdomen: Soft and moderate diffuse ttp, no rebound or guarding, patient is distended Skin: Skin warm and dry. Normal skin color. Normal skin turgor. Extremities: No lower extremity edema. No calf ttp Neuro: Oriented X 3. No motor deficit. No sensory deficit. Course Course Course Narrative: no acute findings on CT scan at this time, no vomiting, can be DC MDM - Abdominal Pain MDM Narrative Medical decision making narrative: 50 yo male with hx of chronic abdominal pain with GI follow up but notes worsening pain with n/v and constipation feels like when he had diverticulitis at this time will need labs, CT scan, nausea medications, dispo per results and findings. Lab Data Result diagrams: 12/21/20 13:03 08/23/20 13:03 Labs: Lab Results 08/23/20 08/23/20 Range/Units 13:03 13:03 WBC 11.0 H (4.8-10.8) X10*3/uL RBC 4.60 (4.60-5.80) X10*6/uL Hgb 14.5 (14.0-18.0) g/dl Hct 44.2 (42-52) % MCV 96.1 (80-98) fL MCH 31.5 (27.0-33.0) pg MCHC 32.8 (31.0-36.0) g/dl RDW 12.9 (11.0-16.0) % Plt Count 214 (160-400) X10*3/uL MPV 11.2 (9.4-12.4) fL Immature Gran % (Auto) 0.5 H (0.0-0.4) % Neut % (Auto) 56.1 (45-73) % Lymph % (Auto) 31.7 (20-40) % Crockett % (Auto) 6.8 (2-11) % Eos % (Auto) 4.3 H (0-4) % Baso % (Auto) 0.6 (0-2) % Lymph # (Auto) 3.5 (1.2-4.9) X10*3/uL Crockett # (Auto) 0.8 (0.1-1.2) X10*3/uL Eos # (Auto) 0.5 H (0.0-0.4) X10*3/uL Baso # (Auto) 0.1 (0.0-0.2) X10*3/uL Abs Immat Gran (auto) 0.06 H (0.00-0.03) X10*3/uL Absolute Neuts (auto) 6.2 (2.0-8.3) X10*3/uL Absolute Nucleated RBC 0.000 (0.0-0.012) X10*3/uL Nucleated RBC % (auto) 0.0 (0.0-0.2) /100WBC Sodium 138 (135-145) mmol/L Potassium 4.1 (3.3-5.1) mmol/l Chloride 100 (96-108) mmol/L Carbon Dioxide 27 (22-29) mmol/L Anion Gap 15 (12-20) BUN 16 (9-16) mg/dL Creatinine 0.99 (0.5-1.4) mg/dL Estim Creat Clear Calc 108.4 Estimated GFR > 60 Random Glucose 190 H (60-115) mg/dL Calcium 9.9 (8.4-10.2) mg/dL Total Bilirubin 0.5 (0.0-1.0) mg/dL Direct Bilirubin 0.2 (0.0-0.5) mg/dL AST 45 H (5-37) U/L ALT 54 H (0-40) U/L Alkaline Phosphatase 118 H (39-117) U/L Total Protein 7.8 (6.5-8.0) g/dL Albumin 4.6 (3.5-5.0) g/dL Lipase 21 (8-78) U/L Discharge Plan Discharge Clinical Impression: Abdominal pain Qualifiers: Abdominal location: generalized Qualified Code(s): R10.84 - Generalized abdominal pain Constipation Qualifiers: Constipation type: other constipation type Qualified Code(s): K59.09 - Other constipation Patient Disposition: Home, Self-Care Instructions: Constipation (ED), Chronic Abdominal Pain (ED) Additional Instructions: return to ED for any worsening symptoms or concerns Prescriptions: New ondansetron 4 mg tablet,disintegrating 4 mg PO Q8H PRN (Reason: nausea and vomiting) Qty: 20 RF: 0 senna 8.6 mg capsule 8.6 mg PO BEDTIME PRN (Reason: constipation) Qty: 30 RF: 0 No Action sucralfate [Carafate] 100 mg/mL suspension 10 ml PO BID Qty: 420 RF: 2 Linzess 290 mcg capsule 290 mcg PO QAM 30 Days Qty: 30 RF: 3 pantoprazole 40 mg tablet,delayed release (DR/EC) 40 mg PO BID Qty: 60 RF: 3 montelukast 10 mg tablet 10 mg PO BEDTIME Qty: 90 RF: 11 albuterol sulfate 90 mcg/actuation HFA aerosol inhaler 2 puff PO Q6H PRN (Reason: shortness of breath or wheezing) Qty: 6.7 RF: 1 ondansetron HCl [Zofran] 4 mg tablet 4 mg PO Q8H Qty: 60 RF: 1 zcljddtl-vdtxhgblp-GS 3.5-10,000-1 mg/mL-unit/mL-% drops,suspension 4 drp otic (ear) right Q8H 10 Days Qty: 10 RF: 0 meclizine 12.5 mg tablet 12.5 mg PO BID Qty: 30 RF: 1 sucralfate [Carafate] 100 mg/mL suspension 10 ml PO QID Qty: 200 RF: 0 famotidine 40 mg tablet 40 mg PO BEDTIME RF: 0 ipratropium-albuterol 0.5 mg-3 mg(2.5 mg base)/3 mL solution for nebulization 3 ml inhalation Q6H PRN (Reason: Dyspnea) RF: 0 losartan-hydrochlorothiazide 50-12.5 mg tablet 1 tab PO DAILY RF: 0 amlodipine 10 mg tablet 10 mg PO DAILY RF: 0 loratadine 10 mg tablet 10 mg PO DAILY RF: 0 minocycline 100 mg capsule 100 mg PO BID RF: 0 Dupixent Syringe 200 mg/1.14 mL syringe 200 mg subcut Q2W RF: 0 Fluzone Quad [id number] (PF) 60 mcg (15 mcg x 4)/0.5 mL syringe IM ONCE RF: 0 Combivent Respimat 20-100 mcg/actuation mist 1 puff inhalation QID 30 Days Qty: 4 RF: 11 Cortisporin-TC 3.3-3-10-0.5 mg/mL drops,suspension 4 drp otic (ear) right QID 10 Days Qty: 10 RF: 1 linaclotide 72 mcg capsule 72 mcg PO DAILY Qty: 1 RF: 3 famotidine 40 mg tablet 40 mg PO BEDTIME Qty: 30 RF: 3 cromolyn 100 mg/5 mL concentrate 200 mg PO QID 30 Days Qty: 1200 RF: 3 docusate sodium [Colace] 100 mg capsule 100 mg PO DAILY Qty: 30 RF: 3 Metamucil 3.4 gram/5.4 gram powder 1 tbsp PO DAILY Qty: 660 RF: 3 Calmoseptine 0.44-20.6 % ointment 1 appl topical TID PRN (Reason: skin irritation) Qty: 113 RF: 0 Referrals: Bacon,Emilee, [facility] [Primary Care Provider] - 2 days [facility] Past Medical History Attestation statement: The following information was validated with the patient. Medical History Anemia Arthritis Asthma Cellulitis COPD (chronic obstructive pulmonary disease) Dysphagia Hepatitis C Hiatal hernia History of drug abuse HTN (hypertension) Internal and external bleeding hemorrhoids Sciatica Severe persistent asthma Surgical History History of appendectomy History of colonoscopy History of laparoscopy Hx of endoscopy Family History Family History Father Diabetes Hypertension Mother Hypertension Social History Social History Alcohol intake: never Smoking Status: Never smoker Second Hand Smoke Exposure: No Advance Directives: No Advance Directives Information Provided: No
--- NOTE | 2020-08-23 14:06 | CT_ITS ---
EXAMINATION: CT ABDOMEN AND PELVIS WITH CONTRAST CLINICAL INFORMATION: Nausea, vomiting, pain with history of diverticuli. COMPARISON: August 02, 2020 TECHNIQUE: Multidetector volumetric images were obtained from the superior aspect of the liver through the pubic symphysis following administration 85 mL of Omnipaque 350 intravenous contrast. Sagittal and coronal reformatted images were obtained on the technologist's workstation. Oral contrast: No This CT examination was performed using dose optimization techniques as appropriate, variously including the following: *Automated exposure control *Adjustment of mA and/or kV according to patient size (this includes techniques or standardized protocols for targeted exams where dose is matched to indication/reason for exam; i.e. extremities or head) *Use of iterative reconstruction technique DLP: 863 mGy-cm FINDINGS: LUNG BASES: The visualized lung bases are unremarkable. No pleural or pericardial effusion. LIVER, GALLBLADDER, AND BILIARY TREE: There is fatty infiltration of the liver. No focal mass or intrahepatic bile duct dilatation is seen. Hepatomegaly is present with vertical span of greater than 20 cm. Common bile duct stable at 1 cm in diameter without evidence of calculi. The gallbladder is unremarkable with no evidence of radiopaque gallstones, gallbladder wall thickening, or obvious pericholecystic inflammatory changes. PANCREAS: Unremarkable. SPLEEN: Unremarkable. ADRENAL GLANDS: Unremarkable. KIDNEYS AND URETERS: The kidneys are normal in size, shape, and attenuation. No hydronephrosis, hydroureter, or calculi seen. No perinephric stranding. BLADDER: Unremarkable. GASTROINTESTINAL TRACT: No dilated loops of large or small bowel are evident. No free air or free fluid. There is no evidence of acute diverticulitis. Patient appears to be status post appendectomy. No pericolonic inflammatory change appreciated. ABDOMINAL WALL: Small fat-containing umbilical hernia present. LYMPH NODES: No lymphadenopathy appreciated. VASCULAR: Unremarkable. PELVIC VISCERA: Prostate calcification present. No abnormal masses seen. OSSEOUS STRUCTURES: No suspicious destructive bony lesions identified. Degenerative disc disease seen at the L5-S1 level. CT/CT abdomen pelvis w con IMPRESSION: Hepatomegaly with diffuse fatty infiltration of the liver. No evidence of ileus or obstruction. No evidence of acute diverticulitis.
[2020-08-23 14:14] LABS: Alanine Aminotransferase 54 U/L (0-40); Albumin Level 4.6 g/dL (3.5-5.0); Alkaline Phosphatase 118 U/L (39-117); Aspartate Amino Transferase 45 U/L (5-37); Bilirubin Direct 0.2 mg/dL (0.0-0.5); Bilirubin Total 0.5 mg/dL (0.0-1.0); Lipase 21 U/L (8-78); Total Protein 7.8 g/dL (6.5-8.0)
--- NOTE | 2020-08-23 14:30 | PC.NURSE ---
2 attempts for iv access unsuccessful
[2020-08-23] MEDS: Metoclopramide HCl 10 MG/2 ML VIAL IVPUSH (14:55)
[2020-08-23] MEDS: diphenhydrAMINE HCL 50 MG/ML VIAL 25 MG IVPUSH (14:55)
[2020-08-23] MEDS: Famotidine/PF 20 MG/2 ML VIAL IVPUSH (14:55)
[2020-08-23 15:00] VITALS: BP 140/88; PULSE 89; RESP 16; TEMP 36.9; O2SAT 95
[2020-08-23] MEDS: 0.9 % Sodium Chloride 500 ML IV (15:06)
[2020-08-23] MEDS: Morphine Sulfate 4 MG/ML CARTRIDGE IVPUSH (15:21)
[2020-08-23] MEDS: iohexoL 350 MG/ML 100 ML INFUS..BTL IV (15:49)
== END 2020-08-23 16:39 | disposition home or self-care (01) ==
PROVIDERS: Emergency Provider Emergency Medicine; PCP Hospitalist
DX: R10.84 Generalized abdominal pain (principal); K59.00 Constipation, unspecified; I10 Essential (primary) hypertension
CPT/HCPCS: 36415; 74177; 80048; 80076; 83690; 85025; 96361; 96374; 96375; 99283; 99284; J1200; J2270; J2765; Q9967

== ENCOUNTER 2020-09-07 06:30 | Day surgery (SDC) | payer OTHER, SELFPAY ==
[2020-08-31 11:07] VITALS: BMI 40.7
[2020-08-31 11:14] VITALS: BP 182/109; PULSE 99; RESP 24; O2SAT 97
--- NOTE | 2020-08-31 12:58 | P.CONAN_ITS ---
Documented by User: Glory Tony 09/06/20 10:02 HPI - Anesthesia Eval Consult details Narrative: 50yo M for Colonoscopy with Balloon Dilation enteroscopy EGD 06/2020 with MAC, no issue. Pt to go to Methadone clinic prior to arrival. Spoke to Cece at [facility] to confirm early dosing. BP elevated at PAT. Pt reports r/t pain. Also recent med change by pcp and that he did not take BP meds before PAT visit. Instructed to call PCP to confirm dosing of BP meds and to take medications AM of procedure with water. [facility] Past Medical History Medical History Anemia Arthritis Asthma Cellulitis COPD (chronic obstructive pulmonary disease) Dysphagia GERD (gastroesophageal reflux disease) Hepatitis C Hiatal hernia History of drug abuse History of kidney stones HTN (hypertension) Internal and external bleeding hemorrhoids Methadone use Sciatica Severe persistent asthma Family History Family History Father Diabetes Hypertension Mother Hypertension Surgical History Surgical History History of appendectomy History of colonoscopy History of laparoscopy Hx of endoscopy Social History Social History Are you a primary health care coordinator to a significant other at home: No Do you presently have visiting nurse or other home services: No Alcohol intake: never Smoking Status: Never smoker Second Hand Smoke Exposure: No Use of substances other than those prescribed or required for medical reasons: No Substance Use Type Other:: last used heroin 1 month ago Have you been hit, kicked, punched, or otherwise hurt by someone within the past year? If so, by whom?: No Advance Directives: No Advance Directives Information Provided: No Advance Directives on File: No Recently lost weight without trying: No Meds Allergies Allergy/AdvReac Type Severity Reaction Status Date / Time milk [MILK] Allergy Severe enterocolit Verified 09/07/20 07:10 is wheat [WHEAT] Allergy Intermediate enterocolit Verified 09/07/20 07:10 is amoxicillin [From AUGMENTIN] AdvReac Intermediate N/V Verified 09/07/20 07:10 clavulanic acid AdvReac Intermediate N/V Verified 09/07/20 07:10 [From AUGMENTIN] ibuprofen [From MOTRIN] AdvReac Mild ULCERS Verified 09/07/20 07:10 naproxen [NAPROXEN] AdvReac Mild ULCERS Verified 09/07/20 07:10 NSAIDS (Non-Steroidal AdvReac Unknown stomach Verified 09/07/20 07:10 Anti-Inflamma upset [NSAIDS] corn AdvReac Nausea and Verified 09/07/20 07:10 Vomiting oats AdvReac Abdominal Verified 09/07/20 07:10 Pain Home Medications Medication Instructions Recorded Confirmed Type famotidine 40 mg tablet 40 mg PO BEDTIME 06/11/20 08/30/20 History ipratropium 0.5 mg-albuterol 3 mg 3 ml INHALATION Q6H PRN ml 06/11/20 08/30/20 History (2.5 mg base)/3 mL nebulization soln losartan 50 mg-hydrochlorothiazide 1 tab PO BID 06/11/20 08/31/20 History 12.5 mg tablet loratadine 10 mg tablet 10 mg PO DAILY 06/18/20 08/30/20 History dupilumab 200 mg/1.14 mL 200 mg SUBCUT Q2W 07/16/20 08/30/20 History subcutaneous syringe flu vacc [id number] 6mos up(PF) ml IM ONCE 07/16/20 07/16/20 History methadone 53 mg PO DAILY 08/31/20 08/31/20 History amlodipine 1 tab PO DAILY 09/07/20 09/07/20 History Exam Exam Date and Time: August 31, 2020 1258 Height,Weight and Vital Signs: Height 5 ft 7 in Weight 117.934 kg Last Vital Signs Pulse 99 08/31/20 11:14 Resp 24 H 08/31/20 11:14 BP 182/109 H 08/31/20 11:14 Pulse Ox 97 08/31/20 11:14 Pertinent Lab Results Pertinent Lab Results: Laboratory Tests 08/23/20 08/23/20 13:03 13:03 WBC 11.0 H Hgb 14.5 Hct 44.2 Plt Count 214 Sodium 138 Potassium 4.1 Chloride 100 Carbon Dioxide 27 BUN 16 Creatinine 0.99 Narrative Narrative: EKG 2019: ST@102 Assessment and Plan Assessment Anesthesia Assessment: Chart Reviewed Documented by User: Luis Eduardo Baumann 09/07/20 08:30 [facility] Past Medical History Medical History Anemia Arthritis Asthma Cellulitis COPD (chronic obstructive pulmonary disease) Dysphagia GERD (gastroesophageal reflux disease) Hepatitis C Hiatal hernia History of drug abuse History of kidney stones HTN (hypertension) Internal and external bleeding hemorrhoids Methadone use Sciatica Severe persistent asthma Family History Family History Father Diabetes Hypertension Mother Hypertension Surgical History Surgical History History of appendectomy History of colonoscopy History of laparoscopy Hx of endoscopy Social History Social History Are you a primary health care coordinator to a significant other at home: No Do you presently have visiting nurse or other home services: No Alcohol intake: never Smoking Status: Never smoker Second Hand Smoke Exposure: No Use of substances other than those prescribed or required for medical reasons: No Substance Use Type Other:: last used heroin 1 month ago Have you been hit, kicked, punched, or otherwise hurt by someone within the past year? If so, by whom?: No Advance Directives: No Advance Directives Information Provided: No Advance Directives on File: No Recently lost weight without trying: No Meds Allergies Allergy/AdvReac Type Severity Reaction Status Date / Time milk [MILK] Allergy Severe enterocolit Verified 09/07/20 07:10 is wheat [WHEAT] Allergy Intermediate enterocolit Verified 09/07/20 07:10 is amoxicillin [From AUGMENTIN] AdvReac Intermediate N/V Verified 09/07/20 07:10 clavulanic acid AdvReac Intermediate N/V Verified 09/07/20 07:10 [From AUGMENTIN] ibuprofen [From MOTRIN] AdvReac Mild ULCERS Verified 09/07/20 07:10 naproxen [NAPROXEN] AdvReac Mild ULCERS Verified 09/07/20 07:10 NSAIDS (Non-Steroidal AdvReac Unknown stomach Verified 09/07/20 07:10 Anti-Inflamma upset [NSAIDS] corn AdvReac Nausea and Verified 09/07/20 07:10 Vomiting oats AdvReac Abdominal Verified 09/07/20 07:10 Pain Home Medications Medication Instructions Recorded Confirmed Type famotidine 40 mg tablet 40 mg PO BEDTIME 06/11/20 08/30/20 History ipratropium 0.5 mg-albuterol 3 mg 3 ml INHALATION Q6H PRN ml 06/11/20 08/30/20 History (2.5 mg base)/3 mL nebulization soln losartan 50 mg-hydrochlorothiazide 1 tab PO BID 06/11/20 08/31/20 History 12.5 mg tablet loratadine 10 mg tablet 10 mg PO DAILY 06/18/20 08/30/20 History dupilumab 200 mg/1.14 mL 200 mg SUBCUT Q2W 07/16/20 08/30/20 History subcutaneous syringe flu vacc [id number] 6mos up(PF) ml IM ONCE 07/16/20 07/16/20 History methadone 53 mg PO DAILY 08/31/20 08/31/20 History amlodipine 1 tab PO DAILY 09/07/20 09/07/20 History Exam Airway Mallampati Class: III TM Dist: >3cm Neck ROM: Full Loose/Missing/Broken Teeth: No Heart: [id number] Lungs: cta b/l Assessment and Plan Assessment Anesthesia Assessment: Anesthesia Plan Discussed and Chart Reviewed Final Anesthetic Review NPO: Yes ASA Class: III Final Preanesthetic Review: No Changes in Pt Med Stat, Meds/Allgs Chart Reviewed, Consent Obtained/Reviewed and Anes Risks/Benef Reviewed Patient Risk: Intermediate Procedure Risk: Low Assessment/Block/Sedation in SS: Assess/Block/Sedation-SS Anesthetic Plan Anesthetic Plan: GA Disposition: Standard PACU
[2020-09-07] VITALS (9 sets, daily range): BP systolic 128–155; BP diastolic 69–89; PULSE 95–111; RESP 16–24; TEMP 36.4–36.7; O2SAT 92–97
[2020-09-07] MEDS: Lactated Ringers 1,000 ML 100 ML IVCONT (07:26)
--- NOTE | 2020-09-07 07:53 | P.HPSUR_ITS ---
Pre-Procedural Eval Section B Chief Complaint: abdominal pain,benign neoplasm small intestine Relevant Social History: Other (specify) Present Medications: see Short Stay Collaborative assessment Medical History: Significant History (Anemia Arthritis Asthma Cellulitis COPD (chronic obstructive pulmonary disease) Dysphagia GERD (gastroesophageal reflux disease) Hepatitis C Hiatal hernia History of drug abuse History of kidney stones HTN (hypertension) Internal and external bleeding hemorrhoids Methadone use Sciatica Severe persis) History of Previous Operations: Relevant previous surgery/procedure and date(s) (appendectomy, laparoscopy) Allergies: Allergies Allergy/AdvReac Type Severity Reaction Status Date / Time milk [MILK] Allergy Severe enterocolit Verified 09/07/20 07:10 is wheat [WHEAT] Allergy Intermediate enterocolit Verified 09/07/20 07:10 is amoxicillin [From AUGMENTIN] AdvReac Intermediate N/V Verified 09/07/20 07:10 clavulanic acid AdvReac Intermediate N/V Verified 09/07/20 07:10 [From AUGMENTIN] ibuprofen [From MOTRIN] AdvReac Mild ULCERS Verified 09/07/20 07:10 naproxen [NAPROXEN] AdvReac Mild ULCERS Verified 09/07/20 07:10 NSAIDS (Non-Steroidal AdvReac Unknown stomach Verified 09/07/20 07:10 Anti-Inflamma upset [NSAIDS] corn AdvReac Nausea and Verified 09/07/20 07:10 Vomiting oats AdvReac Abdominal Verified 09/07/20 07:10 Pain Review of Systems Sugical H&P ROS: Negative: Constitution, Cardiovascular, Respiratory, N eurological, Psychiatric, Hem-Onc, Allergic/Immunologic, Gastrointestinal, Genitourinary, Musculoskeletal, Integumentary, Endocrine and Eyes/Ears/Nose/Throat Exam Surgical H&P Exam: Normal: HEENT, Normal: Heart, Normal: Lungs, Normal: Extremities, Normal: Skin and Normal: Neurological and Significant Findings: Abdomen (tender mid abdomen) Plan Diagnosis/Plan: Unchanged I have reviewed the history and physical and performed a pertinent physical examination on my patient. No changes have occurred unless specified. Small bowel enteroscopy, single balloon
--- NOTE | 2020-09-07 10:17 | P.BOP_ITS ---
Brief Operative Note Date of Service: 09/07/20 Pre-op diagnosis: small bowel lesion on capsule endoscopy Post-op diagnosis: same Procedure: Procedure Description: EGD FLEXIBLE TRANSORAL SINGLE BALLOON SMALL BOWEL ENTEROSCOPY Consent: Indications for the procedure and potential complications of bleeding, perforation, reaction to medications and missed diagnosis were discussed with the patient and informed consent was obtained. Instrument: Olympus 180 ENTEROSCOPE WITH OVERTUBE Monitoring: Vital signs and clinical assessment, continuous EKG monitoring, Pulse oximetry, Carbon Dioxide monitoring and blood pressure monitoring were done throughout the procedure. Procedure: The patient was placed in the left lateral decubitis position and pre-procedure medications were administered and a bite block was placed. The endoscope was inserted into the mouth and advanced under direct vision. The stomach had retained oily food debris noted. The scope was advanced as far as possible with the overtube, Once in position the overtube was advanced to around 155 cm loida and the balloon was then inflated. The mucosa was suctioned to hold the scope in position and then the scope and overtube together were pulled back. The balloon was then deflated and the scope advanced. Once in position the overtube was then pushed again till the 155 cm loida and balloon inflated. This was done successive times until we probably reached the proximal ileum. 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 The nodular lesion seen on capsule was not appreciated it today. Once we reached the furthermost point, tattoo with Afua ink was used to loida the area. The scope was withdrawn in stepwise progression, the overtube was pulled back then the ballon was inflated. When 155 cm reached then the overtube was deflated and pulled back and this was repeated several times. Stomach not easily seen due to debris, esophagus appeared normal. Intervention: Biopsies as noted above Impression/Findings: probable few areas of lymphangiectasia may have gastroparesis PLAN: await bx if bx neg then likely functional pain, may also be related to methadone and food allergies, gastroparesis Surgeon: Ellen Swift MD Anesthesia: GETA Estimated blood loss (mL): 0 Condition: stable Disposition: PACU
[2020-09-07] MEDS: Simethicone 80 MG TAB.CHEW PO (11:10)
[2020-09-07] MEDS: Dicyclomine HCl 10 MG CAPSULE PO (11:10)
== END 2020-09-07 12:45 | disposition home or self-care (01) ==
PROVIDERS: PCP Hospitalist; Visit Provider Internal Medicine Gastroenterology
PROC: 0D7E8ZZ Dilation of Large Intestine, Via Natural or Artificial Opening Endoscopic (ICD-10-PCS; CPT 44361; principal; 2020-09-07 07:30)
DX: R10.13 Epigastric pain (principal); D13.30 Benign neoplasm of unspecified part of small intestine
CPT/HCPCS: 44361; 88305; 88312; 88313; 88341; 88342; J1100; J2250; J2405; J3010

== ENCOUNTER 2020-09-30 13:17 | Outpatient (REF) | payer OTHER, SELFPAY | END 2020-09-30 13:18 | disposition home or self-care (01) | LOC: HO.LAB 13:17 | PROVIDERS: Visit Provider Internal Medicine | DX: Z20.822 Contact with and (suspected) exposure to COVID-19 (principal) | CPT/HCPCS: 36415; C9803; U0003 ==

== ENCOUNTER → 2020-10-08 14:59 | Outpatient (BNVA) | payer OTHER, SELFPAY | PROVIDERS: PCP Hospitalist; Visit Provider Hospitalist | DX: Z13.89 Encounter for screening for other disorder (principal) | CPT/HCPCS: Q3014 ==

== ENCOUNTER 2020-10-21 14:10 | Emergency (ER) | payer OTHER, SELFPAY ==
--- NOTE | ~2020-10-21 | XR_ITS ---
EXAMINATION: XR FOOT, RIGHT CLINICAL INFORMATION: Redness/cellulitis to the right foot COMPARISON: 04/13/2020 TECHNIQUE: AP, lateral, and oblique views of the right foot. FINDINGS: There is normal alignment without acute fracture or dislocation. Joint spaces are preserved. There is normal bone mineral density. There is a small plantar calcaneal spur. There is mild diffuse soft tissue swelling. No radiopaque foreign body. XR/XR foot RT min 3V IMPRESSION: No acute bony abnormality of the right foot. No radiographic evidence for osteomyelitis. She swelling. No radiopaque foreign body.
[2020-10-21 17:27] VITALS: BP 163/103; PULSE 104; RESP 16; TEMP 36.8; O2SAT 96; BMI 39.1
--- NOTE | 2020-10-21 19:10 | ED.EXTPRO ---
HPI - Extremity Problem General Chief complaint: Extremity Injury, Lower Stated complaint: rt foot,itchy,painful and red Time Seen by Provider: 10/21/20 17:50 Source: patient Mode of arrival: ambulatory Limitations: no limitations History of Present Illness HPI Narrative: 58-year-old male with a past medical history of hypertension, hepatitis-C, COPD, asthma, anemia, GERD, hiatal hernia, kidney stones, chronic back pain with sciatica and prior hx of cellulitis to right foot presenting to the ED with complaints recurrent cellulitic infection to the right foot that started over the past few days since he had surgery to his right leg on 10/11/2020 at [facility] for right calf muscle stretching and had a cast. He reports when he was seen they noticed the redness to his right foot and placed him on Bactrim. Reports he woke up today with worsening pain and redness. Reports he was seen here a few months ago after he failed outpatient multiple antibiotics and had to be admitted for IV antibiotics. Reports he is currently on Bactrim that he was placed on from his surgeon. Denies any other symptoms complaints or concerns at this time. MD Complaint: extremity pain Onset (ago): day(s) (Few days worse today) Pain Consistency: constant Location: right Severity scale (1-10): >10 Quality: aching and constant Radiation: none Relieving factors: nothing Exacerbating factors: weight bearing, walking and palpation Associated symptoms: denies other symptoms Related Data Home Medications Medication Instructions Recorded Confirmed ipratropium 0.5 mg-albuterol 3 mg 3 ml INHALATION Q6H PRN ml 06/11/20 10/10/20 (2.5 mg base)/3 mL nebulization soln losartan 50 mg-hydrochlorothiazide 1 tab PO BID 06/11/20 10/10/20 12.5 mg tablet loratadine 10 mg tablet 10 mg PO DAILY 06/18/20 10/10/20 flu vacc [id number] 6mos up(PF) ml IM ONCE 07/16/20 10/10/20 methadone 53 mg PO DAILY 08/31/20 10/10/20 amlodipine 1 tab PO DAILY 09/07/20 10/10/20 Previous Rx's Medication Instructions Recorded pantoprazole 40 mg tablet,delayed 40 mg PO BID #60 tab 06/29/20 release montelukast 10 mg tablet 10 mg PO BEDTIME #90 tab 07/01/20 albuterol sulfate 90 mcg/actuation 2 puff PO Q6H PRN #6.7 g 07/02/20 aerosol inhaler sucralfate [Carafate] 10 ml PO QID #200 ml 07/06/20 ipratropium 20 mcg-albuterol 100 1 puff INHALATION QID 30 Days #4 g 07/16/20 mcg/actuation mist for inhalation meclizine 12.5 mg tablet 12.5 mg PO BID #30 tab 07/22/20 docusate sodium 100 mg capsule 100 mg PO DAILY #30 cap 08/11/20 menthol 0.44 %-zinc oxide 20.6 % 1 appl TOPICAL TID PRN #113 g 08/11/20 topical ointment psyllium husk 3.4 gram/5.4 gram 1 tbsp PO DAILY #660 g 08/11/20 oral powder sennosides [senna] 8.6 mg PO BEDTIME PRN #30 cap 08/23/20 sodium phosphates 19 gram-7 118 ml UT BID 3 Days #1197 ml 08/28/20 gram/118 mL enema bisacodyl 5 mg tablet,delayed 10 mg PO ONCE 1 Days #2 tab 09/01/20 release linaclotide 72 mcg capsule 72 mcg PO .BID - TID 30 Days #90 09/01/20 cap polyethylene glycol 3350 17 238 g PO ONCE 1 Days #238 g 09/01/20 gram/dose oral powder ondansetron 4 mg disintegrating 4 mg PO Q8H PRN #30 tab 09/08/20 tablet famotidine 40 mg tablet 40 mg PO BEDTIME #90 tab 09/16/20 budesonide 3 mg 9 mg PO DAILY #90 ea 09/17/20 capsule,delayed,extended release sennosides 8.6 mg tablet 8.6 mg PO DAILY PRN #30 tab 09/22/20 lactulose 10 gram/15 mL oral 20 g PO TID #500 ml 10/03/20 solution sodium phosphates 19 gram-7 118 ml UT .COMPLEX 5 Days #1197 ml 10/03/20 gram/118 mL enema dupilumab 200 mg/1.14 mL 200 mg SUBCUT Q2W #2.28 ml 10/20/20 subcutaneous syringe acetaminophen [Tylenol Extra 1,000 mg PO QID PRN #14 tab 10/21/20 Strength] clindamycin HCl 600 mg PO TID 10 Days #60 cap 10/21/20 cromolyn 100 mg/5 mL oral 200 mg PO QID #960 ml 10/21/20 concentrate fluconazole [Diflucan] 150 mg PO Q3D #2 tab 10/21/20 lidocaine HCl [Aspercreme 1 appl TOPICAL BID PRN #120 g 10/21/20 (lidocaine HCl)] oxycodone 5 mg PO BID PRN #10 tab 10/21/20 Allergies Allergy/AdvReac Type Severity Reaction Status Date / Time milk [MILK] Allergy Severe enterocolit Verified 10/10/20 23:03 is wheat [WHEAT] Allergy Intermediate enterocolit Verified 10/10/20 23:03 is amoxicillin [From AUGMENTIN] AdvReac Intermediate N/V Verified 10/10/20 23:03 clavulanic acid AdvReac Intermediate N/V Verified 10/10/20 23:03 [From AUGMENTIN] ibuprofen [From MOTRIN] AdvReac Mild ULCERS Verified 10/10/20 23:03 naproxen [NAPROXEN] AdvReac Mild ULCERS Verified 10/10/20 23:03 NSAIDS (Non-Steroidal AdvReac Unknown stomach Verified 10/10/20 23:03 Anti-Inflamma upset [NSAIDS] corn AdvReac Nausea and Verified 10/10/20 23:03 Vomiting oats AdvReac Abdominal Verified 10/10/20 23:03 Pain Review of Systems Review of Systems: Constitutional : No Fever, No Chills , no body aches, no recent illness Head/Face: No facial swelling, No facial redness ENT/Mouth : No oral/throat swelling, No Hoarseness, No Swallowing Difficulty Eyes: No Eye Pain, No Swelling, No Redness Cardiovascular : No Chest Pain, No SOB, No palpitations Respiratory : No Cough, No Sputum, No Wheezing, No Smoke Exposure, No Dyspnea Gastrointestinal : No Nausea, No Vomiting, No Diarrhea, No abdominal Pain Genitourinary : No Dysuria, No Urinary Frequency, No Hematuria Musculoskeletal : No joint pain, No Myalgias, No Joint Swelling Skin : No Skin Lesions, positive rash Neuro : No Weakness, No Numbness, No Headache, No dizziness, No tingling Psych : No Anxiety/Panic, No Depression Heme/Lymph: No Bruising, No Lymphadenopathy Endocrine : No Polyuria, No Polydipsia Denies changes in lotions or detergents. Denies new medications or any changes in medications. Denies drainage from rash. Denies any recent sick contacts or recent travel. Yes all other systems are reviewed and are negative [facility] Past Medical History Attestation statement: The following information was validated with the patient. Medical History Anemia Arthritis Asthma Cellulitis COPD (chronic obstructive pulmonary disease) Dysphagia GERD (gastroesophageal reflux disease) Hepatitis C Hiatal hernia History of drug abuse History of kidney stones HTN (hypertension) Internal and external bleeding hemorrhoids Methadone use Sciatica Severe persistent asthma Surgical History History of appendectomy History of colonoscopy History of laparoscopy Hx of endoscopy Family History Family History Father Diabetes Hypertension Mother Hypertension Social History Social History Alcohol intake: never Smoking Status: Never smoker Second Hand Smoke Exposure: No Advance Directives: No Advance Directives Information Provided: Yes Physical Exam Vital Signs: Vital Signs: Last Vital Signs Temp 98 F 10/21/20 19:38 Pulse 98 10/21/20 19:38 Resp 18 10/21/20 19:38 BP 152/89 H 10/21/20 19:38 Pulse Ox 98 10/21/20 19:38 Body Mass Index 39.1 vital signs have been reviewed as normal and appeared to be correct. Blood pressure hypertensive. Heart rate tachycardic. Respiration rate normal. Temperature normal. Oxygen saturation normal. Appearance: Alert. Oriented X3. No acute distress. Head: Normal external exam. Normocephalic. Atraumatic. Eyes: PERRLA. EOMI. Conjunctiva and sclera normal. Eyelids normal. ENT: Pharynx normal. Uvula midline. Moist mucous membranes. Neck: Normal inspection. Neck supple. FROM. No adenopathy. Thyroid Normal. No meningeal signs. No neck mass noted. CVS: Normal heart rate and rhythm. Heart sound normal. No murmurs noted. Pulses normal throughout. Respiratory: No respiratory distress. Painless inspiration. Breath sounds normal. No wheezes/rales/rhonchi noted. Chest nontender. No accessory muscle usage noted or decreased air movement noted. Back: Full range of motion noted. Skin: Skin warm and dry. Normal skin color. Normal skin turgor. No rashes/lesions/lacerations noted. Extremities: to Right plantar aspect of the foot patient has moderate erythema with tenderness to palpation consistent with cellulitic infection. No streaking/induration/fluctuance noted. See picture below for right calf sutures and no signs of infection/induration/fluctuance. otherwise all other Extremities exhibit normal range of motion and nontender. Neuro: Oriented X 3. No motor deficit. No sensory deficit. Reflexes normal. Course Course Course Narrative: 19pm - 58-year-old male with a past medical history of hypertension, hepatitis-C, COPD, asthma, anemia, GERD, hiatal hernia, kidney stones, chronic back pain with sciatica and prior hx of cellulitis to right foot presenting to the ED with complaints recurrent cellulitic infection to the right foot that started over the past few days worse today. - on exam patient is alert and oriented x3. Hypertensive at 163/103 and tachycardic at 104 otherwise all other vitals are within normal limits. Nontoxic appearing. On exam patient is noted to have cellulitic infection to right foot. No streaking/induration/fluctuance noted. - will obtain labs, blood cultures, lactic acid, x-ray. Last admission in October 2019 and he was seen by infectious disease and had a CT scan and they diagnosed him with cellulitis versus allergic reaction/irritation although he was placed on multiple antibiotics and other none worked and appears that when they started him on clindamycin in the infection started to clear. Therefore will give him a dose of IV clindamycin and IV fluids along with 5 mg of oxycodone and re-evaluate. Reevaluation(s) Reevaluation #1: - right foot x-ray within normal limits no acute processes and no evidence of osteomyelitis. - still awaiting labs at this time. Time: 20:41 Reevaluation #2: - white blood cell count 55588. - ESR 28 - BUN 23 - random glucose 198 - CRP 1.13 - lactic acid 1.6 - all other labs are within normal limits. - I attempted to admit the patient to Dr. Devinieni although he reviewed the patient's labs and imaging and he reported that the patient does not need to be admitted at this time that he is not on the proper antibiotic to place him on clindamycin and to give him return precautions. Therefore instructed patient to return if any new or worsening symptoms to follow up with Jessica Rubi from Infectious Disease. Patient understands agrees the plan. Time: 21:03 MDM - Extremity (Nontraumatic) Medical Records Attestation: I reviewed the patient's medical records. Lab Data Attestation: I reviewed the patient's lab results. Result diagrams: 10/21/20 19:07 10/21/20 20:02 Labs: Lab Results 10/21/20 10/21/20 10/21/20 Range/Units 19:07 19:07 19:08 WBC 13.2 H (4.8-10.8) X10*3/uL RBC 4.51 L (4.60-5.80) X10*6/uL Hgb 14.3 (14.0-18.0) g/dl Hct 43.2 (42-52) % MCV 95.8 (80-98) fL MCH 31.7 (27.0-33.0) pg MCHC 33.1 (31.0-36.0) g/dl RDW 12.8 (11.0-16.0) % Plt Count 244 (160-400) X10*3/uL MPV 10.8 (9.4-12.4) fL Immature Gran % (Auto) 0.9 H (0.0-0.4) % Neut % (Auto) 55.0 (45-73) % Lymph % (Auto) 32.7 (20-40) % Wise % (Auto) 8.1 (2-11) % Eos % (Auto) 3.0 (0-4) % Baso % (Auto) 0.3 (0-2) % Lymph # (Auto) 4.3 (1.2-4.9) X10*3/uL Wise # (Auto) 1.1 (0.1-1.2) X10*3/uL Eos # (Auto) 0.4 (0.0-0.4) X10*3/uL Baso # (Auto) 0.0 (0.0-0.2) X10*3/uL Abs Immat Gran (auto) 0.12 H (0.00-0.03) X10*3/uL Absolute Neuts (auto) 7.2 (2.0-8.3) X10*3/uL Absolute Nucleated RBC 0.000 (0.0-0.012) X10*3/uL Nucleated RBC % (auto) 0.0 (0.0-0.2) /100WBC ESR 28 H (0-15) MM/HR PT (10.8-13.0) SEC INR (0.9-1.1) Sodium (135-145) mmol/L Potassium (3.3-5.1) mmol/L Chloride (96-108) mmol/L Carbon Dioxide (22-29) mmol/L Anion Gap (12-20) BUN (9-16) mg/dL Creatinine (0.5-1.4) mg/dL Estim Creat Clear Calc Estimated GFR Random Glucose (60-115) mg/dL Lactic Acid 1.6 (0.5-2.0) mmol/L Calcium (8.4-10.2) mg/dL Magnesium (1.6-2.6) mg/dL C-Reactive Protein (< or = 0.50) mg/dL 10/21/20 10/21/20 Range/Units 19:50 20:02 WBC (4.8-10.8) X10*3/uL RBC (4.60-5.80) X10*6/uL Hgb (14.0-18.0) g/dl Hct (42-52) % MCV (80-98) fL MCH (27.0-33.0) pg MCHC (31.0-36.0) g/dl RDW (11.0-16.0) % Plt Count (160-400) X10*3/uL MPV (9.4-12.4) fL Immature Gran % (Auto) (0.0-0.4) % Neut % (Auto) (45-73) % Lymph % (Auto) (20-40) % Wise % (Auto) (2-11) % Eos % (Auto) (0-4) % Baso % (Auto) (0-2) % Lymph # (Auto) (1.2-4.9) X10*3/uL Wise # (Auto) (0.1-1.2) X10*3/uL Eos # (Auto) (0.0-0.4) X10*3/uL Baso # (Auto) (0.0-0.2) X10*3/uL Abs Immat Gran (auto) (0.00-0.03) X10*3/uL Absolute Neuts (auto) (2.0-8.3) X10*3/uL Absolute Nucleated RBC (0.0-0.012) X10*3/uL Nucleated RBC % (auto) (0.0-0.2) /100WBC ESR (0-15) MM/HR PT 18.8 H D (10.8-13.0) SEC INR 1.6 H (0.9-1.1) Sodium 135 (135-145) mmol/L Potassium 4.4 (3.3-5.1) mmol/L Chloride 97 (96-108) mmol/L Carbon Dioxide 25 (22-29) mmol/L Anion Gap 17 (12-20) BUN 23 H (9-16) mg/dL Creatinine 1.28 (0.5-1.4) mg/dL Estim Creat Clear Calc 82.1 Estimated GFR 59 Random Glucose 198 H (60-115) mg/dL Lactic Acid (0.5-2.0) mmol/L Calcium 9.8 (8.4-10.2) mg/dL Magnesium 2.1 (1.6-2.6) mg/dL C-Reactive Protein 1.13 H (< or = 0.50) mg/dL Imaging Data X-ray of right foot: Attestation: I personally reviewed and interpreted this imaging study as follows: Radiologist's impression: FINDINGS: There is normal alignment without acute fracture or dislocation. Joint spaces are preserved. There is normal bone mineral density. There is a small plantar calcaneal spur. There is mild diffuse soft tissue swelling. No radiopaque foreign body. XR/XR foot RT min 3V IMPRESSION: No acute bony abnormality of the right foot. No radiographic evidence for osteomyelitis. She swelling. No radiopaque foreign body. Critical Care Time Critical Care Time Critical Care Time: Yes Total Critical Care Time: 60 Attestation: I personally attest to this time spent taking care of the patient Discharge Plan Discharge Clinical Impression: Cellulitis Patient Disposition: Home, Self-Care Instructions: Cellulitis (ED) Prescriptions: New acetaminophen [Tylenol Extra Strength] 500 mg tablet 1,000 mg PO QID PRN (Reason: fever or pain) Qty: 14 RF: 0 oxycodone 5 mg tablet 5 mg PO BID PRN (Reason: pain) Qty: 10 RF: 0 lidocaine HCl [Aspercreme (lidocaine HCl)] 4 % cream 1 appl topical BID PRN (Reason: pain) Qty: 120 RF: 0 fluconazole [Diflucan] 150 mg tablet 150 mg PO Q3D Qty: 2 RF: 0 clindamycin HCl 300 mg capsule 600 mg PO TID 10 Days Qty: 60 RF: 0 No Action pantoprazole 40 mg tablet,delayed release (DR/EC) 40 mg PO BID Qty: 60 RF: 3 montelukast 10 mg tablet 10 mg PO BEDTIME Qty: 90 RF: 11 albuterol sulfate 90 mcg/actuation HFA aerosol inhaler 2 puff PO Q6H PRN (Reason: shortness of breath or wheezing) Qty: 6.7 RF: 1 meclizine 12.5 mg tablet 12.5 mg PO BID Qty: 30 RF: 1 Fleet Enema 19-7 gram/118 mL enema 118 ml UT BID 3 Days Qty: 1197 RF: 0 polyethylene glycol 3350 [Miralax] 17 gram/dose powder 238 g PO ONCE 1 Days Qty: 238 RF: 0 bisacodyl [Dulcolax (bisacodyl)] 5 mg tablet,delayed release (DR/EC) 10 mg PO ONCE 1 Days Qty: 2 RF: 0 linaclotide 72 mcg capsule 72 mcg PO .BID - TID 30 Days Qty: 90 RF: 3 ondansetron 4 mg tablet,disintegrating 4 mg PO Q8H PRN (Reason: nausea and vomiting) Qty: 30 RF: 2 famotidine 40 mg tablet 40 mg PO BEDTIME Qty: 90 RF: 1 budesonide 3 mg capsule,delayed,extend.release 9 mg PO DAILY Qty: 90 RF: 3 sennosides [Natural Senna Laxative] 8.6 mg tablet 8.6 mg PO DAILY PRN (Reason: constipation) Qty: 30 RF: 2 lactulose 10 gram/15 mL solution 20 g PO TID Qty: 500 RF: 0 Fleet Enema 19-7 gram/118 mL enema 118 ml UT .COMPLEX 5 Days Qty: 1197 RF: 0 dupilumab [Dupixent Syringe] 200 mg/1.14 mL syringe 200 mg subcut Q2W Qty: 2.28 RF: 11 cromolyn 100 mg/5 mL concentrate 200 mg PO QID Qty: 960 RF: 3 senna 8.6 mg capsule 8.6 mg PO BEDTIME PRN (Reason: constipation) Qty: 30 RF: 0 methadone 10 mg/mL Concentrate 53 mg PO DAILY RF: 0 amlodipine 10 mg tablet 1 tab PO DAILY RF: 0 sucralfate [Carafate] 100 mg/mL suspension 10 ml PO QID Qty: 200 RF: 0 ipratropium-albuterol 0.5 mg-3 mg(2.5 mg base)/3 mL solution for nebulization 3 ml inhalation Q6H PRN (Reason: Dyspnea) RF: 0 losartan-hydrochlorothiazide 50-12.5 mg tablet 1 tab PO BID RF: 0 loratadine 10 mg tablet 10 mg PO DAILY RF: 0 Fluzone Quad 4025-5070 (PF) 60 mcg (15 mcg x 4)/0.5 mL syringe IM ONCE RF: 0 Combivent Respimat 20-100 mcg/actuation mist 1 puff inhalation QID 30 Days Qty: 4 RF: 11 docusate sodium [Colace] 100 mg capsule 100 mg PO DAILY Qty: 30 RF: 3 Metamucil 3.4 gram/5.4 gram powder 1 tbsp PO DAILY Qty: 660 RF: 3 Calmoseptine 0.44-20.6 % ointment 1 appl topical TID PRN (Reason: skin irritation) Qty: 113 RF: 0 Referrals: Good Harper MD [Primary Care Provider] - 2 days Katie Rubi MD [Physician] - 2 days Stand Alone Forms: Work/School Release Print Language: Yi
[2020-10-21 19:25] LABS: Basophils Percent Auto 0.3 % (0-2); Eosinophils Absolute Auto 0.4 X10*3/uL (0.0-0.4); Hematocrit 43.2 % (42-52); Hemoglobin 14.3 g/dl (14.0-18.0); Imm Gran Abs Auto 0.12 X10*3/uL (0.00-0.03); Imm Gran Pct Auto 0.9 % (0.0-0.4); Lymphocytes Absolute Auto 4.3 X10*3/uL (1.2-4.9); Lymphocytes Percent Auto 32.7 % (20-40); MANUAL DIFF FLAG NO; Mean Corpuscular HGB Conc 33.1 g/dl (31.0-36.0); Mean Corpuscular Hemoglobin 31.7 pg (27.0-33.0); Mean Corpuscular Volume 95.8 fL (80-98); Mean Platelet Volume 10.8 fL (9.4-12.4); Monocytes Absolute Auto 1.1 X10*3/uL (0.1-1.2); Monocytes Percent Auto 8.1 % (2-11); Neutrophils Absolute Auto 7.2 X10*3/uL (2.0-8.3); Platelet Count 244 X10*3/uL (160-400); Red Blood Count 4.51 X10*6/uL (4.60-5.80); Red Cell Distribution Width 12.8 % (11.0-16.0); White Blood Count 13.2 X10*3/uL (4.8-10.8)
[2020-10-21] MEDS: oxyCODONE HCl Immed Release 5 MG TABLET PO (19:33)
[2020-10-21] MEDS: Clindamycin Phosphate/D5W 900 MG/50 ML PIGGYBACK 50 MG IV (19:35)
[2020-10-21 19:38] VITALS: BP 152/89; PULSE 98; RESP 18; TEMP 36.6; O2SAT 98
[2020-10-21] MEDS: 0.9 % Sodium Chloride 1,000 ML 999 ML IVCONT (19:38)
[2020-10-21 19:44] LABS: Lactic Acid 1.6 mmol/L (0.5-2.0)
[2020-10-21 20:00] LABS: INTERNATIONAL NORM RATIO 1.6 (0.9-1.1); Prothrombin Time 18.8 SEC (10.8-13.0)
[2020-10-21 20:36] LABS: Erythrocyte Sedimentation Rate 28 MM/HR (0-15)
[2020-10-21 20:42] LABS: Anion Gap 17 (12-20); Blood Urea Nitrogen 23 mg/dL (9-16); C Reactive Protein 1.13 mg/dL (< or = 0.50); Calcium 9.8 mg/dL (8.4-10.2); Carbon Dioxide 25 mmol/L (22-29); Chloride 97 mmol/L (96-108); Creatinine Clr Calc Pharmacy 82.1; Estimated Glomerular Filt Rate 59; Glucose Random 198 mg/dL (60-115); Magnesium 2.1 mg/dL (1.6-2.6); Potassium 4.4 mmol/L (3.3-5.1); Sodium 135 mmol/L (135-145)
[2020-10-21] MEDS: Lidocaine 4 % Cream KIT 1 APPL TOPICAL (20:56)
--- NOTE | 2020-10-21 21:47 | PC.NURSE ---
PT SURGICAL SITE ASSESSED WITH YINA BROWN. SITE CLEANED AND AREA WNL.
== END 2020-10-21 21:50 | disposition home or self-care (01) ==
PROVIDERS: Physician Assistant Medical; Emergency Provider Emergency Medicine; PCP Family Medicine
DX: L03.115 Cellulitis of right lower limb (principal); I10 Essential (primary) hypertension; Z98.890 Other specified postprocedural states; Z86.19 Personal history of other infectious and parasitic diseases
CPT/HCPCS: 36415; 73630; 80048; 83605; 83735; 85025; 85610; 85652; 86140; 87040; 96361; 96374; 99284; 99291

== ENCOUNTER → 2020-11-01 16:00 | Outpatient (BNVA) | payer OTHER, SELFPAY | PROVIDERS: PCP Family Medicine; Visit Provider Surgery | DX: K64.4 Residual hemorrhoidal skin tags (principal); K64.8 Other hemorrhoids | CPT/HCPCS: 46600; 99212 ==

== ENCOUNTER → 2020-11-04 14:55 | Outpatient (BNVA) | payer OTHER, SELFPAY | PROVIDERS: PCP Family Medicine; Visit Provider Hospitalist | DX: Z01.818 Encounter for other preprocedural examination (principal); J45.40 Moderate persistent asthma, uncomplicated; Z79.51 Long term (current) use of inhaled steroids | CPT/HCPCS: 99212 ==

== ENCOUNTER 2020-11-05 06:54 | Day surgery (SDC) | payer OTHER, SELFPAY ==
--- NOTE | 2020-11-04 13:51 | P.CONAN_ITS ---
HPI - Anesthesia Eval Consult details Narrative: 50 year old male patient with severe asthma and history of status asthmaticus, here for EUA, Hemorrhoidectomy. [facility] Active Problems Active Problems: All Active Problems (Updated 10/21/20 @ 20:40 by YINA Gomez) Sciatica (Acute) Methadone use (Acute) HTN (hypertension) (Acute) History of kidney stones (Acute) Hiatal hernia (Acute) Hepatitis C (Acute) GERD (gastroesophageal reflux disease) (Acute) Dysphagia (Acute) COPD (chronic obstructive pulmonary disease) (Acute) Asthma (Acute) Arthritis (Acute) Anemia (Acute) Epigastric abdominal pain (Acute) Otitis externa (Acute) Internal and external bleeding hemorrhoids (Acute) Severe persistent asthma (Acute) Cellulitis (Acute) History of drug abuse (Acute) Past Medical History Medical History (Updated 11/05/20 @ 11:04 by Lis Ortega) Anemia Arthritis Asthma Cellulitis COPD (chronic obstructive pulmonary disease) Dysphagia GERD (gastroesophageal reflux disease) Hepatitis C Hiatal hernia History of drug abuse History of kidney stones HTN (hypertension) Internal and external bleeding hemorrhoids Methadone use Pre-op evaluation Sciatica Severe persistent asthma Family History Family History Father Diabetes Hypertension Mother Hypertension Family history of problems with anesthesia: No Surgical History Surgical History History of appendectomy History of colonoscopy History of laparoscopy Hx of endoscopy History of Problems with Anesthesia: No Social History Social History Alcohol intake: never Smoking Status: Never smoker Second Hand Smoke Exposure: No Use of substances other than those prescribed or required for medical reasons: No Advance Directives: No Advance Directives Information Provided: Yes Meds Allergies Allergy/AdvReac Type Severity Reaction Status Date / Time milk [MILK] Allergy Severe enterocolit Verified 11/04/20 17:09 is wheat [WHEAT] Allergy Intermediate enterocolit Verified 11/04/20 17:09 is amoxicillin [From AUGMENTIN] AdvReac Intermediate N/V Verified 11/04/20 17:09 clavulanic acid AdvReac Intermediate N/V Verified 11/04/20 17:09 [From AUGMENTIN] ibuprofen [From MOTRIN] AdvReac Mild ULCERS Verified 11/04/20 17:09 naproxen [NAPROXEN] AdvReac Mild ULCERS Verified 11/04/20 17:09 NSAIDS (Non-Steroidal AdvReac Unknown stomach Verified 11/04/20 17:09 Anti-Inflamma upset [NSAIDS] corn AdvReac Nausea and Verified 11/04/20 17:09 Vomiting oats AdvReac Abdominal Verified 11/04/20 17:09 Pain Home Medications Medication Instructions Recorded Confirmed Last Taken Type ipratropium 0.5 mg-albuterol 3 mg 3 ml INHALATION Q6H PRN ml 06/11/20 11/04/20 11/05/20 05:45 History (2.5 mg base)/3 mL nebulization soln losartan 50 mg-hydrochlorothiazide 1 tab PO BID 06/11/20 11/04/20 Unknown History 12.5 mg tablet loratadine 10 mg tablet 10 mg PO DAILY 06/18/20 11/04/20 06/28/20 07:15 History flu vacc [id number] 6mos up(PF) ml IM ONCE 07/16/20 11/04/20 Unknown History methadone 53 mg PO DAILY 08/31/20 11/04/20 09/07/20 06:00 History amlodipine 1 tab PO DAILY 09/07/20 11/04/20 Unknown History sulfamethoxazole 800 1 tab PO BID 11/04/20 11/04/20 Unknown History mg-trimethoprim 160 mg tablet tramadol 50 mg tablet 0 mg PO 11/04/20 11/04/20 Unknown History Exam Exam Date and Time: November 04, 2020 1351 Height,Weight and Vital Signs: Height 5 ft 7 in Weight 115.666 kg Vital Signs Temp Pulse Resp BP Pulse Ox 97.4 F 100 18 144/87 H 96 11/05/20 07:41 11/05/20 07:41 11/05/20 07:41 11/05/20 07:41 11/05/20 07:41 Narrative Narrative: Patient quite belligerent. Swearing and abusive. Upset because I told him that his breath sound were diminished. He used his nebulizer this morning and expects his lungs to sound fine. He states that he knows how his lungs sound and he feels that his breathing is fine . He is upset that Dr Dover ordered a respiratory treatment for him here when he had told him to use his nebulizer at home. I tried to explain to him that we had tried to see if he could avoid getting a treatment here but based on his auscultatory findings, I was recommending that he get the treatment as ordered to optimize his status and smooth out his anesthetic course. Post respiratory treatment, lungs sound much better anteriorly and posteriorly. Airway Mallampati Class: III TM Dist: >3cm Neck ROM: Full Heart: RRR Lungs: Very diminished. Hardly audible- very poor air movement. Expiratory wheezes in areas where BS heard. Assessment and Plan Assessment Anesthesia Assessment: Anesthesia Plan Discussed and Chart Reviewed Final Anesthetic Review NPO: Yes ASA Class: III Final Preanesthetic Review: No Changes in Pt Med Stat, Meds/Allgs Chart Reviewed, Consent Obtained/Reviewed and Anes Risks/Benef Reviewed Patient Risk: Intermediate Procedure Risk: Low Assessment/Block/Sedation in SS: Assess/Block/Sedation-SS Anesthetic Plan Anesthetic Plan: GA (Dr Azevedo agreed to do procedure in lithotomy position. Will use LMA) Disposition: Standard PACU
[2020-11-05] VITALS (16 sets, daily range): BP systolic 103–144; BP diastolic 64–95; PULSE 85–100; RESP 16–18; TEMP 36.3–36.6; O2SAT 94–98; BMI 39.9
--- NOTE | 2020-11-05 08:10 | MHC.SHP ---
Pre-Procedural Eval Section B Chief Complaint: Internal and external bleeding hemorrhoids Allergies: Allergies Allergy/AdvReac Type Severity Reaction Status Date / Time milk [MILK] Allergy Severe enterocolit Verified 11/04/20 17:09 is wheat [WHEAT] Allergy Intermediate enterocolit Verified 11/04/20 17:09 is amoxicillin [From AUGMENTIN] AdvReac Intermediate N/V Verified 11/04/20 17:09 clavulanic acid AdvReac Intermediate N/V Verified 11/04/20 17:09 [From AUGMENTIN] ibuprofen [From MOTRIN] AdvReac Mild ULCERS Verified 11/04/20 17:09 naproxen [NAPROXEN] AdvReac Mild ULCERS Verified 11/04/20 17:09 NSAIDS (Non-Steroidal AdvReac Unknown stomach Verified 11/04/20 17:09 Anti-Inflamma upset [NSAIDS] corn AdvReac Nausea and Verified 11/04/20 17:09 Vomiting oats AdvReac Abdominal Verified 11/04/20 17:09 Pain Plan I have reviewed the history and physical and performed a pertinent physical examination on my patient. No changes have occurred unless specified.
[2020-11-05] MEDS: Albuterol/Iprat 2.5/0.5MG 3 ML AMPUL.NEB INHALE (08:17)
[2020-11-05] MEDS: Lactated Ringers 1,000 ML 50 ML IV (08:40)
--- NOTE | 2020-11-05 09:28 | P.OP_ITS ---
Operative Note Operative Note Date of Service: 11/05/20 Narrative: Preop diagnosis: external hemorrhoids with severe pain Postop diagnosis: Large thrombosed external hemorrhoids Procedure: Exam under anesthesia, hemorrhoidectomy Surgeon: Atif Azevedo MD The patient is a 50-year-old male with severe anal pain. He was referred to me in the office was noted to have a large swollen and very tender hemorrhoid on the right side. In view of this, he wanted proceed with hemorrhoidectomy. He understood the technique of the procedure. He was aware of the risks, benefits, and alternatives. He was brought to the operative placed in modified lithotomy position under general anesthesia via LMA. The perianal area was prepped and draped usual sterile fashion. Surgical time-out was done. The patient received Cefotan 2 g IV preoperatively. Examination of the anal orifice revealed a large thrombosed hemorrhoid right side just at the anal verge, probably about 2.5 cm in diameter. I inserted the Jones retractor and examined the anal canal circumferentially. Again this l arge thrombosed hemorrhoid was seen right side extending just to the dentate line. There were no other lesions. There was no no fissure seen. There was no blood in the anal canal. I was able to apply a Trinh grasper at the hemorrhoidal column. This was retracted out into the field. I made a figure-eight stitch using a chromic 3-0 proximal to this hemorrhoid column. An incision was made around this hemorrhoidal column all the way to the perianal skin using a blade 15. I excised this hemorrhoidal column above the plane of the sphincters along this incision using Metzenbaum scissors all the way to the figure-eight stitch earlier. I then closed this incision using the same chromic 3-0 suture from the figure- eight applied earlier in a running fashion. I placed additional hemostatic [id number] sutures on oozing areas. I then observed for hemostasis. Once hemostasis was ensured, I proceeded to infiltrate the perianal area with Marcaine 0.5% for postop analgesia. I applied a rolled Gelfoam packing into the anal canal for additional hemostasis. The procedure was then completed. The patient tolerated procedure well. There were no complications noted. Initial and final counts of sponges and instruments were correct. Estimated blood loss was about 25 cc. The patient is extubated without difficulty and transferred to the recovery room with stable vital signs.
--- NOTE | 2020-11-05 09:39 | PM.OP ---
Brief Operative Note Date of Service: 11/05/20 Pre-op diagnosis: painful external hemorrhoids Post-op diagnosis: other Procedure: thrombosed hemorrhoids Implants: Surgeon: Atif Azevedo MD Anesthesia: GLMA Estimated blood loss (mL): 25 Condition: stable Disposition: PACU
[2020-11-05] MEDS: Ketorolac Tromethamine 30 MG/ML VIAL IVPUSH (09:41)
[2020-11-05] MEDS: fentaNYL citrate/PF 100 MCG/2 ML VIAL 25 MCG IVPUSH ×4 (09:47→10:08)
[2020-11-05] MEDS: oxyCODONE HCl Immed Release 5 MG TABLET 10 MG PO (09:51)
[2020-11-05] MEDS: HYDROmorphone HCl 0.5 MG/0.5 ML SYRINGE IVPUSH (10:22)
== END 2020-11-05 11:49 | disposition home or self-care (01) ==
PROVIDERS: PCP Family Medicine; Visit Provider Surgery
PROC: (CPT 46255; principal; 2020-11-05 08:30)
DX: K64.8 Other hemorrhoids (principal); K64.4 Residual hemorrhoidal skin tags; I10 Essential (primary) hypertension; D64.9 Anemia, unspecified; J44.9 Chronic obstructive pulmonary disease, unspecified; J45.50 Severe persistent asthma, uncomplicated; B19.20 Unspecified viral hepatitis C without hepatic coma; F11.20 Opioid dependence, uncomplicated; Z79.899 Other long term (current) drug therapy; Z88.8 Allergy status to other drugs, medicaments and biological substances
CPT/HCPCS: 46255; 88304; 94640; J0131; J1100; J1170; J1885; J2250; J2405; J3010

== ENCOUNTER → 2020-11-15 14:19 | Outpatient (BNVA) | payer OTHER, SELFPAY | PROVIDERS: PCP Family Medicine; Visit Provider Surgery | DX: Z87.19 Personal history of other diseases of the digestive system (principal) | CPT/HCPCS: 99212 ==

== ENCOUNTER → 2020-11-29 09:04 | Outpatient (BNVA) | payer OTHER, SELFPAY | PROVIDERS: PCP Family Medicine; Visit Provider Surgery | DX: Z48.815 Encounter for surgical aftercare following surgery on the digestive system (principal); K92.1 Melena; Z87.19 Personal history of other diseases of the digestive system | CPT/HCPCS: 99212 ==

== ENCOUNTER → 2020-12-02 10:34 | Outpatient (BNVA) | payer OTHER, SELFPAY | PROVIDERS: PCP Family Medicine; Visit Provider Surgery | DX: Z13.89 Encounter for screening for other disorder (principal) | CPT/HCPCS: 99212 ==

== ENCOUNTER 2020-12-02 11:02 | Outpatient (REF) | payer OTHER, SELFPAY | END 2020-12-02 11:03 | disposition home or self-care (01) | LOC: HO.LAB 11:02 | PROVIDERS: Visit Provider Internal Medicine | DX: Z20.822 Contact with and (suspected) exposure to COVID-19 (principal) | CPT/HCPCS: C9803; U0003 ==

== ENCOUNTER 2020-12-09 14:18 | Outpatient (REF) | payer OTHER, SELFPAY ==
[2020-12-09 14:53] LABS: COVID-19 Test Negative (Negative)
== END 2020-12-09 14:19 | disposition home or self-care (01) ==
LOC: HO.LAB 14:18
PROVIDERS: Visit Provider Internal Medicine
DX: Z20.822 Contact with and (suspected) exposure to COVID-19 (principal)
CPT/HCPCS: 36415; 87635; C9803

== ENCOUNTER 2020-12-17 09:49 | Emergency (ER) | payer OTHER, SELFPAY ==
--- NOTE | ~2020-12-17 | US_ITS ---
EXAMINATION: US VENOUS ULTRASOUND WITH DOPPLER LOWER EXTREMITY, LEFT CLINICAL INFORMATION: Pain. COMPARISON: None TECHNIQUE: Ultrasound of the deep veins is performed from the hip to the calf with compression sonography and color and pulse Doppler assessment. Spectral analysis with color-flow imaging is performed. FINDINGS: There is normal venous compression and respiratory variation and augmented flow. The visualized common femoral vein, superficial femoral vein, profunda femoral vein, popliteal vein, and the trifurcation region shows no evidence of deep venous thrombosis. There is no significant popliteal fossa cyst. US/US venous duplex LE LT IMPRESSION: No DVT demonstrated in the left lower extremity.
[2020-12-17 09:56] VITALS: BP 165/106; PULSE 115; RESP 18; TEMP 37.1; O2SAT 95; BMI 39.9
--- NOTE | 2020-12-17 10:44 | ED_ITS ---
HPI - Wound/Laceration General Chief Complaint: Wound/Laceration Stated Complaint: WOUND CHECK L LEG Time Seen by Provider: 12/17/20 10:32 Source: patient Mode of arrival: ambulatory Limitations: no limitations History of Present Illness HPI narrative: 50 y/o male wit history of substance abuse on methadone, COPD/as thma, hepatitis C, HTN, sciatica, history of RLE cellulitis who presents to the ED from home with c/o LLE pain x3 days with painful, itchy, dry and red skin on the front of his lower leg. He states he has a history of similar rash/wound on his RLE in the past and was treated with anitbiotics for it. He is not currently on antibiotics. He denies trauma, no fevers at home. He reports pain in his left lower leg when walking. Onset (ago): day(s) (3) Extremity Location: left: lower leg (anterior sarkar) Body four view annotation: 1. dry, scaly rash with erythema and warmth Patient tetanus UTD: Yes Associated symptoms: pain Related Data Home Medications Medication Instructions Recorded Confirmed ipratropium 0.5 mg-albuterol 3 mg 3 ml INHALATION Q6H PRN ml 06/11/20 12/02/20 (2.5 mg base)/3 mL nebulization soln losartan 50 mg-hydrochlorothiazide 1 tab PO BID 06/11/20 12/02/20 12.5 mg tablet loratadine 10 mg tablet 10 mg PO DAILY 06/18/20 12/02/20 flu vacc [id number] 6mos up(PF) ml IM ONCE 07/16/20 12/02/20 methadone 53 mg PO DAILY 08/31/20 12/02/20 amlodipine 1 tab PO DAILY 09/07/20 12/02/20 sulfamethoxazole 800 1 tab PO BID 11/04/20 12/02/20 mg-trimethoprim 160 mg tablet tramadol 50 mg tablet 0 mg PO 11/04/20 12/02/20 Previous Rx's Medication Instructions Recorded pantoprazole 40 mg tablet,delayed 40 mg PO BID #60 tab 06/29/20 release montelukast 10 mg tablet 10 mg PO BEDTIME #90 tab 07/01/20 albuterol sulfate 90 mcg/actuation 2 puff PO Q6H PRN #6.7 g 07/02/20 aerosol inhaler sucralfate [Carafate] 10 ml PO QID #200 ml 07/06/20 ipratropium 20 mcg-albuterol 100 1 puff INHALATION QID 30 Days #4 g 07/16/20 mcg/actuation mist for inhalation meclizine 12.5 mg tablet 12.5 mg PO BID #30 tab 07/22/20 docusate sodium 100 mg capsule 100 mg PO DAILY #30 cap 08/11/20 menthol 0.44 %-zinc oxide 20.6 % 1 appl TOPICAL TID PRN #113 g 08/11/20 topical ointment psyllium husk 3.4 gram/5.4 gram 1 tbsp PO DAILY #660 g 08/11/20 oral powder senna 8.6 mg PO BEDTIME PRN #30 cap 08/23/20 sodium phosphates 19 gram-7 118 ml NC BID 3 Days #1197 ml 08/28/20 gram/118 mL enema bisacodyl 5 mg tablet,delayed 10 mg PO ONCE 1 Days #2 tab 09/01/20 release polyethylene glycol 3350 17 238 g PO ONCE 1 Days #238 g 09/01/20 gram/dose oral powder ondansetron 4 mg disintegrating 4 mg PO Q8H PRN #30 tab 09/08/20 tablet famotidine 40 mg tablet 40 mg PO BEDTIME #90 tab 09/16/20 budesonide 3 mg 9 mg PO DAILY #90 ea 09/17/20 capsule,delayed,extended release sennosides 8.6 mg tablet 8.6 mg PO DAILY PRN #30 tab 09/22/20 lactulose 10 gram/15 mL oral 20 g PO TID #500 ml 10/03/20 solution sodium phosphates 19 gram-7 118 ml NC .COMPLEX 5 Days #1197 ml 10/03/20 gram/118 mL enema dupilumab 200 mg/1.14 mL 200 mg SUBCUT Q2W #2.28 ml 10/20/20 subcutaneous syringe acetaminophen [Tylenol Extra 1,000 mg PO QID PRN #14 tab 10/21/20 Strength] clindamycin HCl 600 mg PO TID 10 Days #60 cap 10/21/20 cromolyn 100 mg/5 mL oral 200 mg PO QID #960 ml 10/21/20 concentrate fluconazole [Diflucan] 150 mg PO Q3D #2 tab 10/21/20 lidocaine HCl [Aspercreme 1 appl TOPICAL BID PRN #120 g 10/21/20 (lidocaine HCl)] oxycodone 5 mg PO BID PRN #10 tab 10/21/20 albendazole 200 mg tablet 400 mg PO DAILY #4 tab 10/24/20 linaclotide 72 mcg capsule 72 mcg PO DAILY #30 cap 11/04/20 docusate sodium [Colace] 100 mg PO BID #60 cap 11/05/20 oxycodone-acetaminophen [Percocet] 1 - 2 tab PO Q4-6H PRN #30 tab 11/05/20 oxycodone-acetaminophen 5 mg-325 1 tab PO Q6H PRN #15 tab 11/13/20 mg tablet lidocaine 5 % topical cream 1 appl TOPICAL TID PRN #15 g 11/26/20 docusate sodium 100 mg capsule 100 mg PO DAILY #60 cap 11/29/20 menthol 0.44 %-zinc oxide 20.6 % 1 appl TOPICAL QID PRN #71 g 12/02/20 topical ointment oxycodone-acetaminophen 5 mg-325 1 tab PO TID PRN #14 tab 12/02/20 mg tablet cephalexin 500 mg PO Q8H 7 Days #21 cap 12/17/20 doxycycline monohydrate 100 mg PO BID #20 cap 12/17/20 mupirocin 1 appl TOPICAL BID #22 g 12/17/20 Allergies Allergy/AdvReac Type Severity Reaction Status Date / Time milk [MILK] Allergy Severe enterocolit Verified 12/02/20 10:50 is wheat [WHEAT] Allergy Intermediate enterocolit Verified 12/02/20 10:50 is amoxicillin [From AUGMENTIN] AdvReac Intermediate N/V Verified 12/02/20 10:50 clavulanic acid AdvReac Intermediate N/V Verified 12/02/20 10:50 [From AUGMENTIN] ibuprofen [From MOTRIN] AdvReac Mild ULCERS Verified 12/02/20 10:50 naproxen [NAPROXEN] AdvReac Mild ULCERS Verified 12/02/20 10:50 NSAIDS (Non-Steroidal AdvReac Unknown stomach Verified 12/02/20 10:50 Anti-Inflamma upset [NSAIDS] corn AdvReac Nausea and Verified 12/02/20 10:50 Vomiting oats AdvReac Abdominal Verified 12/02/20 10:50 Pain Review of Systems Review of Systems: Constitutional: No Fever, No Chills Cardiovascular: No Chest Pain, No SOB Respiratory: No Cough, No Sputum Gastrointestinal: No Nausea, No Vomiting, No Diarrhea, No abdominal Pain Genitourinary: No Dysuria, No Urinary Frequency, No Hematuria Musculoskeletal: No joint pain, + Myalgias Skin: +Skin Lesions, + rash Neuro: No Weakness, No Numbness, No Dizziness, No Headache Psych: No Anxiety/Panic, No Depression Heme/Lymph: No Bruising, No Lymphadenopathy Endocrine: No Polyuria, No Polydipsia PMFSH Past Medical History Attestation statement: The following information was validated with the patient. Medical History Anemia Arthritis Asthma Cellulitis COPD (chronic obstructive pulmonary disease) Dysphagia GERD (gastroesophageal reflux disease) Hepatitis C Hiatal hernia History of drug abuse History of kidney stones HTN (hypertension) Internal and external bleeding hemorrhoids Methadone use Pre-op evaluation Sciatica Severe persistent asthma Surgical History History of appendectomy History of colonoscopy History of hemorrhoidectomy History of laparoscopy Hx of endoscopy Family History Family History Father Diabetes Hypertension Mother Hypertension Social History Social History Alcohol intake: never Smoking Status: Never smoker Second Hand Smoke Exposure: No Use of substances other than those prescribed or required for medical reasons: Yes Substance Use Type: Opiates Substance Use Type Other:: pt currently on methadone and on tapering program Any prior treatment program specific to substance use: Yes Advance Directives: No Advance Directives Information Provided: No Physical Exam Vital Signs: Vital Signs: Last Vital Signs Temp 97.5 F 12/17/20 12:00 Pulse 86 12/17/20 12:00 Resp 16 12/17/20 12:00 BP 149/98 H 12/17/20 12:00 Pulse Ox 96 12/17/20 12:00 Body Mass Index 39.9 Appearance: Alert. Oriented X3. No acute distress. HEENT: normal inspection CVS: Tachycardic, regular rhythm, Pulses normal. Respiratory: No respiratory distress. Skin: Skin warm and dry. Normal skin color. Normal skin turgor. No rashes. Extremities: LLE with large patch of dry, scaly skin with warmth and mild surrounding erythema, no warmth. tender to touch. NV intact distally. Neuro: Oriented X 3. No motor deficit. No sensory deficit. Ambulates with stead gait. Course Course Course Narrative: 50 y/o male presenting with 3 days of LLE pain and rash. He arrives afebrile but tachycardic to 115. He reports pain and anxiety. Will check basic lab workup to assess for leukocytosis and elevated lactic acid. Will also get LE doppler to assess for DVT. PO antibiotic ordered. Reevaluation(s) Reevaluation #1: Lactic acid normal. WBC 13K, which is stable from last month. HR improved. U/S showed no DVT. He does not require admission at this time. He is stable for discharge with PO antibiotics and f/u with PCP. Instructed to return if worsening symptoms. MDM - Wound/Laceration Lab Data Result diagrams: 12/17/20 11:34 12/17/20 11:34 Labs: Lab Results 12/17/20 12/17/20 12/17/20 Range/Units 11:33 11:34 11:34 WBC 13.6 H (4.8-10.8) X10*3/uL RBC 4.63 (4.60-5.80) X10*6/uL Hgb 14.5 (14.0-18.0) g/dl Hct 44.3 (42-52) % MCV 95.7 (80-98) fL MCH 31.3 (27.0-33.0) pg MCHC 32.7 (31.0-36.0) g/dl RDW 13.2 (11.0-16.0) % Plt Count 235 (160-400) X10*3/uL MPV 11.3 (9.4-12.4) fL Immature Gran % (Auto) 1.5 H (0.0-0.4) % Neut % (Auto) 55.2 (45-73) % Lymph % (Auto) 30.0 (20-40) % [place] % (Auto) 6.5 (2-11) % Eos % (Auto) 6.2 H (0-4) % Baso % (Auto) 0.6 (0-2) % Lymph # (Auto) 4.1 (1.2-4.9) X10*3/uL [place] # (Auto) 0.9 (0.1-1.2) X10*3/uL Eos # (Auto) 0.8 H (0.0-0.4) X10*3/uL Baso # (Auto) 0.1 (0.0-0.2) X10*3/uL Abs Immat Gran (auto) 0.20 H (0.00-0.03) X10*3/uL Absolute Neuts (auto) 7.6 (2.0-8.3) X10*3/uL Absolute Nucleated RBC 0.000 (0.0-0.012) X10*3/uL Nucleated RBC % (auto) 0.0 (0.0-0.2) /100WBC Hold Blue Top Sodium 137 (135-145) mmol/L Potassium 4.3 (3.3-5.1) mmol/L Chloride 97 (96-108) mmol/L Carbon Dioxide 27 (22-29) mmol/L Anion Gap 17 (12-20) BUN 20 H (9-16) mg/dL Creatinine 1.00 (0.5-1.4) mg/dL Estim Creat Clear Calc 106.2 Estimated GFR > 60 Random Glucose 183 H (60-115) mg/dL Lactic Acid 2.0 (0.5-2.0) mmol/L Calcium 10.3 H (8.4-10.2) mg/dL Magnesium 2.0 (1.6-2.6) mg/dL 12/17/20 Range/Units 11:34 WBC (4.8-10.8) X10*3/uL RBC (4.60-5.80) X10*6/uL Hgb (14.0-18.0) g/dl Hct (42-52) % MCV (80-98) fL MCH (27.0-33.0) pg MCHC (31.0-36.0) g/dl RDW (11.0-16.0) % Plt Count (160-400) X10*3/uL MPV (9.4-12.4) fL Immature Gran % (Auto) (0.0-0.4) % Neut % (Auto) (45-73) % Lymph % (Auto) (20-40) % [place] % (Auto) (2-11) % Eos % (Auto) (0-4) % Baso % (Auto) (0-2) % Lymph # (Auto) (1.2-4.9) X10*3/uL [place] # (Auto) (0.1-1.2) X10*3/uL Eos # (Auto) (0.0-0.4) X10*3/uL Baso # (Auto) (0.0-0.2) X10*3/uL Abs Immat Gran (auto) (0.00-0.03) X10*3/uL Absolute Neuts (auto) (2.0-8.3) X10*3/uL Absolute Nucleated RBC (0.0-0.012) X10*3/uL Nucleated RBC % (auto) (0.0-0.2) /100WBC Hold Blue Top SEE NOTE Sodium (135-145) mmol/L Potassium (3.3-5.1) mmol/L Chloride (96-108) mmol/L Carbon Dioxide (22-29) mmol/L Anion Gap (12-20) BUN (9-16) mg/dL Creatinine (0.5-1.4) mg/dL Estim Creat Clear Calc Estimated GFR Random Glucose (60-115) mg/dL Lactic Acid (0.5-2.0) mmol/L Calcium (8.4-10.2) mg/dL Magnesium (1.6-2.6) mg/dL Discharge Plan Discharge Clinical Impression: Cellulitis Qualifiers: Site of cellulitis: extremity Site of cellulitis of extremity: lower extremity Laterality: left Qualified Code(s): L03.116 - Cellulitis of left lower limb Patient Disposition: Home, Self-Care Instructions: Cellulitis (ED) Additional Instructions: Your ultrasound today did not show any evidence of a blood clot. You are being treated for an infection of your skin in your left lower leg. Take the prescribed antibiotics as directed. Follow up with your doctor in 1 week. Follow up with Dermatology for further workup. If you have worsening redness, pain, swelling or develop a fever come back to the ER for further evaluation. Prescriptions: New doxycycline monohydrate 100 mg capsule 100 mg PO BID Qty: 20 RF: 0 cephalexin 500 mg capsule 500 mg PO Q8H 7 Days Qty: 21 RF: 0 mupirocin 2 % ointment 1 appl topical BID Qty: 22 RF: 0 No Action pantoprazole 40 mg tablet,delayed release (DR/EC) 40 mg PO BID Qty: 60 RF: 3 montelukast 10 mg tablet 10 mg PO BEDTIME Qty: 90 RF: 11 albuterol sulfate 90 mcg/actuation HFA aerosol inhaler 2 puff PO Q6H PRN (Reason: shortness of breath or wheezing) Qty: 6.7 RF: 1 meclizine 12.5 mg tablet 12.5 mg PO BID Qty: 30 RF: 1 Fleet Enema 19-7 gram/118 mL enema 118 ml NC BID 3 Days Qty: 1197 RF: 0 polyethylene glycol 3350 [Miralax] 17 gram/dose powder 238 g PO ONCE 1 Days Qty: 238 RF: 0 bisacodyl [Dulcolax (bisacodyl)] 5 mg tablet,delayed release (DR/EC) 10 mg PO ONCE 1 Days Qty: 2 RF: 0 ondansetron 4 mg tablet,disintegrating 4 mg PO Q8H PRN (Reason: nausea and vomiting) Qty: 30 RF: 2 famotidine 40 mg tablet 40 mg PO BEDTIME Qty: 90 RF: 1 budesonide 3 mg capsule,delayed,extend.release 9 mg PO DAILY Qty: 90 RF: 3 sennosides [Natural Senna Laxative] 8.6 mg tablet 8.6 mg PO DAILY PRN (Reason: constipation) Qty: 30 RF: 2 lactulose 10 gram/15 mL solution 20 g PO TID Qty: 500 RF: 0 Fleet Enema 19-7 gram/118 mL enema 118 ml NC .COMPLEX 5 Days Qty: 1197 RF: 0 dupilumab [Dupixent Syringe] 200 mg/1.14 mL syringe 200 mg subcut Q2W Qty: 2.28 RF: 11 cromolyn 100 mg/5 mL concentrate 200 mg PO QID Qty: 960 RF: 3 albendazole 200 mg tablet 400 mg PO DAILY Qty: 4 RF: 0 linaclotide [Linzess] 72 mcg capsule 72 mcg PO DAILY Qty: 30 RF: 3 oxycodone-acetaminophen [Percocet] 5-325 mg tablet 1 tab PO Q6H PRN (Reason: pain) Qty: 15 RF: 0 lidocaine 5 % cream 1 appl topical TID PRN (Reason: pain) Qty: 15 RF: 0 senna 8.6 mg capsule 8.6 mg PO BEDTIME PRN (Reason: constipation) Qty: 30 RF: 0 methadone 10 mg/mL Concentrate 53 mg PO DAILY RF: 0 amlodipine 10 mg tablet 1 tab PO DAILY RF: 0 oxycodone-acetaminophen [Percocet] 5-325 mg tablet 1 - 2 tab PO Q4-6H PRN (Reason: pain) Qty: 30 RF: 0 docusate sodium [Colace] 100 mg capsule 100 mg PO BID Qty: 60 RF: 2 sucralfate [Carafate] 100 mg/mL suspension 10 ml PO QID Qty: 200 RF: 0 acetaminophen [Tylenol Extra Strength] 500 mg tablet 1,000 mg PO QID PRN (Reason: fever or pain) Qty: 14 RF: 0 oxycodone 5 mg tablet 5 mg PO BID PRN (Reason: pain) Qty: 10 RF: 0 lidocaine HCl [Aspercreme (lidocaine HCl)] 4 % cream 1 appl topical BID PRN (Reason: pain) Qty: 120 RF: 0 fluconazole [Diflucan] 150 mg tablet 150 mg PO Q3D Qty: 2 RF: 0 clindamycin HCl 300 mg capsule 600 mg PO TID 10 Days Qty: 60 RF: 0 ipratropium-albuterol 0.5 mg-3 mg(2.5 mg base)/3 mL solution for nebulization 3 ml inhalation Q6H PRN (Reason: Dyspnea) RF: 0 losartan-hydrochlorothiazide 50-12.5 mg tablet 1 tab PO BID RF: 0 loratadine 10 mg tablet 10 mg PO DAILY RF: 0 flu vacc [id number] 6mos up(PF) 60 mcg (15 mcg x 4)/0.5 mL syringe IM ONCE RF: 0 Combivent Respimat 20-100 mcg/actuation mist 1 puff inhalation QID 30 Days Qty: 4 RF: 11 docusate sodium [Colace] 100 mg capsule 100 mg PO DAILY Qty: 60 RF: 2 docusate sodium [Colace] 100 mg capsule 100 mg PO DAILY Qty: 30 RF: 3 Metamucil 3.4 gram/5.4 gram powder 1 tbsp PO DAILY Qty: 660 RF: 3 Calmoseptine 0.44-20.6 % ointment 1 appl topical TID PRN (Reason: skin irritation) Qty: 113 RF: 0 tramadol 50 mg tablet 0 mg PO RF: 0 sulfamethoxazole-trimethoprim 800-160 mg tablet 1 tab PO BID RF: 0 oxycodone-acetaminophen [Percocet] 5-325 mg tablet 1 tab PO TID PRN (Reason: pain) Qty: 14 RF: 0 Calmoseptine 0.44-20.6 % ointment 1 appl topical QID PRN (Reason: skin irritation) Qty: 71 RF: 0 Referrals: Mi Dover PA-C [[facility]] - 2 days Discharge Date/Time: 12/17/20 13:19
[2020-12-17 11:44] LABS: MANUAL DIFF FLAG NO
[2020-12-17 11:48] LABS: Basophils Absolute Auto 0.1 X10*3/uL (0.0-0.2); Basophils Percent Auto 0.6 % (0-2); Eosinophils Absolute Auto 0.8 X10*3/uL (0.0-0.4); Eosinophils Percent Auto 6.2 % (0-4); Hematocrit 44.3 % (42-52); Hemoglobin 14.5 g/dl (14.0-18.0); Imm Gran Pct Auto 1.5 % (0.0-0.4); Lymphocytes Absolute Auto 4.1 X10*3/uL (1.2-4.9); Mean Corpuscular HGB Conc 32.7 g/dl (31.0-36.0); Mean Corpuscular Hemoglobin 31.3 pg (27.0-33.0); Mean Corpuscular Volume 95.7 fL (80-98); Mean Platelet Volume 11.3 fL (9.4-12.4); Monocytes Absolute Auto 0.9 X10*3/uL (0.1-1.2); Monocytes Percent Auto 6.5 % (2-11); Neutrophils Absolute Auto 7.6 X10*3/uL (2.0-8.3); Neutrophils Percent Auto 55.2 % (45-73); Platelet Count 235 X10*3/uL (160-400); Red Blood Count 4.63 X10*6/uL (4.60-5.80); Red Cell Distribution Width 13.2 % (11.0-16.0); White Blood Count 13.6 X10*3/uL (4.8-10.8)
[2020-12-17] MEDS: Acetaminophen 325 MG TABLET 975 MG PO (11:56)
[2020-12-17] MEDS: cephALEXin 500 MG CAPSULE PO (11:56)
[2020-12-17 12:00] VITALS: BP 149/98; PULSE 86; RESP 16; TEMP 36.4; O2SAT 96
[2020-12-17 12:14] LABS: Anion Gap 17 (12-20); Blood Urea Nitrogen 20 mg/dL (9-16); Calcium 10.3 mg/dL (8.4-10.2); Carbon Dioxide 27 mmol/L (22-29); Chloride 97 mmol/L (96-108); Creatinine Clr Calc Pharmacy 106.2; Estimated Glomerular Filt Rate > 60; Glucose Random 183 mg/dL (60-115); Potassium 4.3 mmol/L (3.3-5.1); Sodium 137 mmol/L (135-145)
[2020-12-17] MEDS: 0.9 % Sodium Chloride 1,000 ML 999 ML IVCONT (12:20)
== END 2020-12-17 13:19 | disposition home or self-care (01) ==
PROVIDERS: Physician Assistant; Emergency Provider Emergency Medicine Emergency Medical Services; PCP Family Medicine
DX: L03.116 Cellulitis of left lower limb (principal); R00.0 Tachycardia, unspecified; M79.662 Pain in left lower leg; R21 Rash and other nonspecific skin eruption; F11.20 Opioid dependence, uncomplicated; I10 Essential (primary) hypertension; J44.9 Chronic obstructive pulmonary disease, unspecified; D64.9 Anemia, unspecified; K21.9 Gastro-esophageal reflux disease without esophagitis; Z86.19 Personal history of other infectious and parasitic diseases; Z87.442 Personal history of urinary calculi
CPT/HCPCS: 36415; 80048; 83605; 83735; 85025; 87040; 93971; 96360; 99284; 99285

== ENCOUNTER → 2020-12-27 09:52 | Outpatient (BNVA) | payer OTHER, SELFPAY | PROVIDERS: PCP Family Medicine; Visit Provider Surgery | DX: Z87.19 Personal history of other diseases of the digestive system (principal) | CPT/HCPCS: 99212 ==

== ENCOUNTER → 2020-12-28 10:38 | Outpatient (BNVA) | payer OTHER, SELFPAY | PROVIDERS: PCP Family Medicine; Visit Provider Internal Medicine Gastroenterology | DX: R10.13 Epigastric pain (principal) | CPT/HCPCS: Q3014 ==

== ENCOUNTER → 2021-01-21 09:29 | Outpatient (BNVA) | payer OTHER, SELFPAY | PROVIDERS: PCP Family Medicine; Visit Provider Hospitalist | DX: J45.50 Severe persistent asthma, uncomplicated (principal); J01.00 Acute maxillary sinusitis, unspecified | CPT/HCPCS: 99212 ==

== ENCOUNTER → 2021-02-18 09:39 | Outpatient (BNVA) | payer OTHER, SELFPAY | PROVIDERS: PCP Family Medicine; Referring Provider Family Medicine; Visit Provider Internal Medicine Gastroenterology | DX: M67.88 Other specified disorders of synovium and tendon, other site (principal); R10.13 Epigastric pain | CPT/HCPCS: 99212 ==

== ENCOUNTER 2021-05-11 14:22 | Emergency (ER) | payer OTHER, SELFPAY ==
--- NOTE | ~2021-05-11 | XR_ITS ---
EXAMINATION: XR ABDOMEN KUB CLINICAL INDICATION: impaction COMPARISON: None TECHNIQUE: AP x2 views of the abdomen. FINDINGS: There is moderate stool in the colon from the cecum to the mid descending colon. There is no proximal bowel obstruction. There is no gaseous dilatation of bowel or abnormal collections of gas. No rectal fecal impaction. There are some densities right lower quadrant which may represent fine surgical clips from prior appendectomy. There are no visible urinary tract calculi. No visible acute bony abnormality. Lung bases grossly clear. XR/XR KUB IMPRESSION: Moderate stool from cecum to mid descending colon. No gaseous dilatation of bowel or abnormal collections of gas. No rectal fecal impaction.
[2021-05-11 14:31] VITALS: BP 145/102; PULSE 121; RESP 20; TEMP 36.9; O2SAT 94; BMI 39.1
--- NOTE | 2021-05-11 16:06 | ED.ABDPAIN ---
HPI - Abdominal Pain General Chief Complaint: Abdominal Pain Stated Complaint: ABD PAIN LUMP IN GROIN AREA Time Seen by Provider: 05/11/21 16:06 Source: patient Mode of arrival: ambulatory Limitations: no limitations History of Present Illness HPI narrative: Patient complaining of constipation for last 1 week tried lactulose with little relief patient's methadone with history of constipation in the past last bowel movement was 2 days ago. No nausea no vomiting no fever no chills. Patient also had a small lump in the right thigh area for last few weeks which is getting bigger and tender Related Data Home Medications Medication Instructions Recorded Confirmed ipratropium 0.5 mg-albuterol 3 mg 3 ml INHALATION Q6H PRN ml 06/11/20 01/21/21 (2.5 mg base)/3 mL nebulization soln losartan 50 mg-hydrochlorothiazide 1 tab PO BID 06/11/20 01/21/21 12.5 mg tablet methadone 10 mg/mL oral concentrate 53 mg PO DAILY 08/31/20 01/21/21 doxycycline hyclate 100 mg capsule 100 mg PO BID 12/28/20 01/21/21 Previous Rx's Medication Instructions Recorded pantoprazole 40 mg tablet,delayed 40 mg PO BID #60 tab 06/29/20 release albuterol sulfate 90 mcg/actuation 2 puff PO Q6H PRN #6.7 g 07/02/20 aerosol inhaler ipratropium 20 mcg-albuterol 100 1 puff INHALATION QID 30 Days #4 g 07/16/20 mcg/actuation mist for inhalation (Combivent Respimat) psyllium husk 3.4 gram/5.4 gram 1 tbsp PO DAILY #660 g 08/11/20 oral powder (Metamucil) lactulose 10 gram/15 mL oral 20 g PO TID #500 ml 10/03/20 solution fluconazole 150 mg tablet 150 mg PO Q3D #2 tab 10/21/20 (Diflucan) lidocaine HCl 4 % topical cream 1 appl TOPICAL BID PRN #120 g 10/21/20 (Aspercreme (lidocaine HCl)) lidocaine 5 % topical cream 1 appl TOPICAL TID PRN #15 g 11/26/20 menthol 0.44 %-zinc oxide 20.6 % 1 appl TOPICAL QID PRN #71 g 12/02/20 topical ointment (Calmoseptine) doxycycline monohydrate 100 mg 100 mg PO BID #20 cap 12/17/20 capsule mupirocin 2 % topical ointment 1 appl TOPICAL BID #22 g 12/17/20 cromolyn 100 mg/5 mL oral 200 mg PO QID 30 Days #1200 ml 12/31/20 concentrate levofloxacin 500 mg tablet 500 mg PO DAILY 14 Days #14 tab 01/21/21 [id number] 3.3 4 drp OTIC (EAR) LEFT QID 7 Days 01/23/21 mg-3 mg-10 mg-0.5 mg/mL ear #10 ml drops,susp (Cortisporin-TC) budesonide 3 mg 9 mg PO DAILY #270 cap 02/04/21 capsule,delayed,extended release dupilumab 300 mg/2 mL subcutaneous 300 mg SUBCUT Q2W 365 Days #54 ml 02/10/21 pen injector ([place]) cetirizine 10 mg tablet 10 mg PO DAILY #90 tab 04/04/21 ondansetron 4 mg disintegrating 4 mg PO Q8H PRN #30 tab 04/05/21 tablet linaclotide 72 mcg capsule See Rx Instructions PO DAILY #90 05/05/21 (Linzess) cap bisacodyl 5 mg tablet,delayed 10 mg PO BEDTIME PRN #20 tab 05/11/21 release (Dulcolax (bisacodyl)) cephalexin 500 mg capsule 500 mg PO QID 10 Days #40 cap 05/11/21 doxycycline hyclate 100 mg tablet 100 mg PO BID #20 tab 05/11/21 polyethylene glycol 3350 17 17 g PO DAILY PRN #510 g 05/11/21 gram/dose oral powder (Miralax) Allergies Allergy/AdvReac Type Severity Reaction Status Date / Time milk [MILK] Allergy Severe enterocolit Verified 02/18/21 09:49 is wheat [WHEAT] Allergy Intermediate enterocolit Verified 02/18/21 09:49 is amoxicillin [From AUGMENTIN] AdvReac Intermediate N/V Verified 02/18/21 09:49 clavulanic acid AdvReac Intermediate N/V Verified 02/18/21 09:49 [From AUGMENTIN] ibuprofen [From MOTRIN] AdvReac Mild ULCERS Verified 02/18/21 09:49 naproxen [NAPROXEN] AdvReac Mild ULCERS Verified 02/18/21 09:49 NSAIDS (Non-Steroidal AdvReac Unknown stomach Verified 02/18/21 09:49 Anti-Inflamma upset [NSAIDS] corn AdvReac Nausea and Verified 02/18/21 09:49 Vomiting oats AdvReac Abdominal Verified 02/18/21 09:49 Pain Review of Systems Review of Systems Yes all other systems are reviewed and are negative Physical Exam Vital Signs: Vital Signs: Last Vital Signs Temp 98.3 F 05/11/21 16:18 Pulse 111 H 05/11/21 17:06 Resp 16 05/11/21 17:06 BP 119/91 H 05/11/21 17:06 Pulse Ox 98 05/11/21 17:06 Body Mass Index 39.1 Appearance: Alert. Oriented X3. No acute distress. Eyes: No pallor or icterus ENT: Pharynx normal. Oral Mucosa moist Neck: Normal inspection. Neck supple. CVS: Normal heart rate and rhythm. Pulses normal. Respiratory: No respiratory distress. Equal air entry bilateral, no wheezing/rales/rhonchi Abdomen: Soft and nontender. Bowel sounds are present, no mass palpable, no CVA tenderness Rectal; no stool palpable on the finger rectum is empty Skin: Skin warm and dry. Normal skin color. Normal skin turgor. Small folliculitis right medial part of the thigh Extremities: No lower Procedures Abscess I/D Site: lower extremity Side (if applicable): right Technique: needle aspiration Amount of fluid expressed (mL): 1 Sent for culture/gram staining?: No Irrigation: No Packing used?: none Discharge Plan Discharge Clinical Impression: Folliculitis Constipation Qualifiers: Constipation type: chronic idiopathic constipation Qualified Code(s): K59.04 - Chronic idiopathic constipation Patient Disposition: Home, Self-Care Instructions: Constipation (ED), Folliculitis (ED) Additional Instructions: Take MiraLax 2- 3 times a day for constipation as advised Follow-up with your PCP Prescriptions: New bisacodyl [Dulcolax (bisacodyl)] 5 mg tablet,delayed release (DR/EC) 10 mg PO BEDTIME PRN (Reason: constipation) Qty: 20 RF: 0 polyethylene glycol 3350 [Miralax] 17 gram/dose powder 17 g PO DAILY PRN (Reason: constipation) Qty: 510 RF: 0 cephalexin 500 mg capsule 500 mg PO QID 10 Days Qty: 40 RF: 0 doxycycline hyclate 100 mg tablet 100 mg PO BID Qty: 20 RF: 0 No Action pantoprazole 40 mg tablet,delayed release (DR/EC) 40 mg PO BID Qty: 60 RF: 3 albuterol sulfate 90 mcg/actuation HFA aerosol inhaler 2 puff PO Q6H PRN (Reason: shortness of breath or wheezing) Qty: 6.7 RF: 1 lactulose 10 gram/15 mL solution 20 g PO TID Qty: 500 RF: 0 lidocaine 5 % cream 1 appl topical TID PRN (Reason: pain) Qty: 15 RF: 0 cromolyn 100 mg/5 mL concentrate 200 mg PO QID 30 Days Qty: 1200 RF: 3 budesonide 3 mg capsule,delayed,extend.release 9 mg PO DAILY Qty: 270 RF: 1 Dupixent Pen 300 mg/2 mL pen injector 300 mg subcut Q2W 365 Days Qty: 54 RF: 0 cetirizine 10 mg tablet 10 mg PO DAILY Qty: 90 RF: 1 ondansetron 4 mg tablet,disintegrating 4 mg PO Q8H PRN (Reason: nausea and vomiting) Qty: 30 RF: 2 Linzess 72 mcg capsule See Rx Instructions PO DAILY Qty: 90 RF: 3 methadone 10 mg/mL Concentrate 53 mg PO DAILY RF: 0 lidocaine HCl [Aspercreme (lidocaine HCl)] 4 % cream 1 appl topical BID PRN (Reason: pain) Qty: 120 RF: 0 fluconazole [Diflucan] 150 mg tablet 150 mg PO Q3D Qty: 2 RF: 0 doxycycline monohydrate 100 mg capsule 100 mg PO BID Qty: 20 RF: 0 mupirocin 2 % ointment 1 appl topical BID Qty: 22 RF: 0 ipratropium-albuterol 0.5 mg-3 mg(2.5 mg base)/3 mL solution for nebulization 3 ml inhalation Q6H PRN (Reason: Dyspnea) RF: 0 losartan-hydrochlorothiazide 50-12.5 mg tablet 1 tab PO BID RF: 0 Combivent Respimat 20-100 mcg/actuation mist 1 puff inhalation QID 30 Days Qty: 4 RF: 11 doxycycline hyclate 100 mg capsule 100 mg PO BID RF: 0 Metamucil 3.4 gram/5.4 gram powder 1 tbsp PO DAILY Qty: 660 RF: 3 Calmoseptine 0.44-20.6 % ointment 1 appl topical QID PRN (Reason: skin irritation) Qty: 71 RF: 0 levofloxacin 500 mg tablet 500 mg PO DAILY 14 Days Qty: 14 RF: 0 Cortisporin-TC 3.3-3-10-0.5 mg/mL drops,suspension 4 drp otic (ear) left QID 7 Days Qty: 10 RF: 0 Interventions: ED Discharge Assessment Last Done: 05/11/21 17:27 Discharge Date/Time: 05/11/21 17:27 [facility] Past Medical History Medical History Anemia Arthritis Asthma Cellulitis COPD (chronic obstructive pulmonary disease) Deficient knowledge of leg surgery home care Dysphagia GERD (gastroesophageal reflux disease) Hepatitis C Hiatal hernia History of drug abuse History of kidney stones HTN (hypertension) Internal and external bleeding hemorrhoids Methadone use Pre-op evaluation Sciatica Severe persistent asthma Sinusitis Surgical History History of appendectomy History of colonoscopy History of hemorrhoidectomy History of laparoscopy Hx of endoscopy Family History Family History Father Diabetes Hypertension Mother Hypertension Social History Social History Are you a primary multi care technician to a significant other at home: No Do you presently have visiting nurse or other home services: No Alcohol intake: never Second Hand Smoke Exposure: No Substance Use Type: Opiates Advance Directives: No Advance Directives Information Provided: No
[2021-05-11 16:18] VITALS: BP 130/93; PULSE 112; RESP 19; TEMP 36.8; O2SAT 94
[2021-05-11] MEDS: cephALEXin 500 MG CAPSULE PO (16:44)
[2021-05-11] MEDS: bisacodyL 5 MG TABLET.DR 10 MG PO (16:44)
[2021-05-11] MEDS: Magnesium Citrate 300 ML SOLUTION PO (16:44)
[2021-05-11 17:06] VITALS: BP 119/91; PULSE 111; RESP 16; O2SAT 98
== END 2021-05-11 17:27 | disposition home or self-care (01) ==
PROVIDERS: Emergency Provider Internal Medicine; PCP Family Medicine
DX: L02.214 Cutaneous abscess of groin (principal); L73.9 Follicular disorder, unspecified; K59.04 Chronic idiopathic constipation; K59.00 Constipation, unspecified; R10.30 Lower abdominal pain, unspecified; Z79.899 Other long term (current) drug therapy
CPT/HCPCS: 10060; 74018; 99283; 99284

== ENCOUNTER 2021-05-24 16:34 | Emergency (ER) | payer OTHER, SELFPAY ==
--- NOTE | ~2021-05-24 | XR_ITS ---
EXAMINATION: XR FOOT, RIGHT CLINICAL INFORMATION: Right foot pain COMPARISON: Right foot radiographs 10/21/2020, 04/13/2020, 10/31/2019 TECHNIQUE: AP, lateral, and oblique views of the right foot. FINDINGS: The bones and soft tissues are normal. No fracture. Alignment is anatomic. Joint spaces are maintained. A tiny plantar calcaneal spur is again seen. XR/XR foot RT 2V IMPRESSION: Normal right foot. Tiny plantar calcaneal spur.
[2021-05-24 18:05] VITALS: BP 133/92; PULSE 112; RESP 18; TEMP 36.7; O2SAT 96; BMI 38.7
[2021-05-24 21:00] VITALS: BP 106/76; PULSE 101; RESP 18; TEMP 36.9; O2SAT 95
--- NOTE | 2021-05-24 21:03 | PC.NURSE ---
discoloration (pale and red in spots) right instep of foot. no open wound. tender to touch. awaits ED provider
[2021-05-24 21:17] LABS: Basophils Percent Auto 0.3 % (0-2); Eosinophils Absolute Auto 0.4 X10*3/uL (0.0-0.4); Eosinophils Percent Auto 2.5 % (0-4); Hematocrit 45.4 % (42-52); Imm Gran Abs Auto 0.12 X10*3/uL (0.00-0.03); Imm Gran Pct Auto 0.8 % (0.0-0.4); Lymphocytes Absolute Auto 3.6 X10*3/uL (1.2-4.9); Lymphocytes Percent Auto 25.2 % (20-40); MANUAL DIFF FLAG NO; Mean Corpuscular Hemoglobin 31.2 pg (27.0-33.0); Mean Corpuscular Volume 94.4 fL (80-98); Mean Platelet Volume 10.9 fL (9.4-12.4); Monocytes Absolute Auto 1.1 X10*3/uL (0.1-1.2); Monocytes Percent Auto 7.5 % (2-11); Neutrophils Percent Auto 63.7 % (45-73); Platelet Count 245 X10*3/uL (160-400); Red Blood Count 4.81 X10*6/uL (4.60-5.80); Red Cell Distribution Width 13.2 % (11.0-16.0); White Blood Count 14.2 X10*3/uL (4.8-10.8)
[2021-05-24 21:38] LABS: Alanine Aminotransferase 155 U/L (0-40); Albumin Level 4.4 g/dL (3.5-5.0); Alkaline Phosphatase 168 U/L (39-117); Anion Gap 14 (12-20); Aspartate Amino Transferase 114 U/L (5-37); Bilirubin Total 0.9 mg/dL (0.0-1.0); Blood Urea Nitrogen 22 mg/dL (9-16); Calcium 9.9 mg/dL (8.4-10.2); Carbon Dioxide 26 mmol/L (22-29); Chloride 102 mmol/L (96-108); Creatinine Clr Calc Pharmacy 62.1; Estimated Glomerular Filt Rate 44; Glucose Random 239 mg/dL (60-115); Potassium 4.5 mmol/L (3.3-5.1); Sodium 137 mmol/L (135-145); Total Protein 7.6 g/dL (6.5-8.0)
--- NOTE | 2021-05-24 21:53 | ED_ITS ---
HPI - Extremity Problem General Chief complaint: Extremity Problem Stated complaint: foot infection Time Seen by Provider: 05/24/21 21:10 Source: patient Mode of arrival: ambulatory Limitations: no limitations History of Present Illness HPI Narrative: Patient history of cellulitis of right foot in the past nondiabet ic sent by PCP for increased tenderness at the same location without any skin breakdown patient on doxycycline and cephalexin, no fever no chills Related Data Home Medications Medication Instructions Recorded Confirmed ipratropium 0.5 mg-albuterol 3 mg 3 ml INHALATION Q6H PRN ml 06/11/20 01/21/21 (2.5 mg base)/3 mL nebulization soln losartan 50 mg-hydrochlorothiazide 1 tab PO BID 06/11/20 01/21/21 12.5 mg tablet methadone 10 mg/mL oral concentrate 53 mg PO DAILY 08/31/20 01/21/21 doxycycline hyclate 100 mg capsule 100 mg PO BID 12/28/20 01/21/21 fluticasone propionate 50 spray INTRANASAL 05/24/21 mcg/actuation nasal spray,suspension Previous Rx's Medication Instructions Recorded pantoprazole 40 mg tablet,delayed 40 mg PO BID #60 tab 06/29/20 release albuterol sulfate 90 mcg/actuation 2 puff PO Q6H PRN #6.7 g 07/02/20 aerosol inhaler ipratropium 20 mcg-albuterol 100 1 puff INHALATION QID 30 Days #4 g 07/16/20 mcg/actuation mist for inhalation (Combivent Respimat) psyllium husk 3.4 gram/5.4 gram 1 tbsp PO DAILY #660 g 08/11/20 oral powder (Metamucil) lactulose 10 gram/15 mL oral 20 g PO TID #500 ml 10/03/20 solution fluconazole 150 mg tablet 150 mg PO Q3D #2 tab 10/21/20 (Diflucan) lidocaine HCl 4 % topical cream 1 appl TOPICAL BID PRN #120 g 10/21/20 (Aspercreme (lidocaine HCl)) lidocaine 5 % topical cream 1 appl TOPICAL TID PRN #15 g 11/26/20 menthol 0.44 %-zinc oxide 20.6 % 1 appl TOPICAL QID PRN #71 g 12/02/20 topical ointment (Calmoseptine) doxycycline monohydrate 100 mg 100 mg PO BID #20 cap 12/17/20 capsule mupirocin 2 % topical ointment 1 appl TOPICAL BID #22 g 12/17/20 cromolyn 100 mg/5 mL oral 200 mg PO QID 30 Days #1200 ml 12/31/20 concentrate levofloxacin 500 mg tablet 500 mg PO DAILY 14 Days #14 tab 01/21/21 [id number] 3.3 4 drp OTIC (EAR) LEFT QID 7 Days 01/23/21 mg-3 mg-10 mg-0.5 mg/mL ear #10 ml drops,susp (Cortisporin-TC) budesonide 3 mg 9 mg PO DAILY #270 cap 02/04/21 capsule,delayed,extended release dupilumab 300 mg/2 mL subcutaneous 300 mg SUBCUT Q2W 365 Days #54 ml 02/10/21 pen injector (DupixLosonoco) cetirizine 10 mg tablet 10 mg PO DAILY #90 tab 04/04/21 ondansetron 4 mg disintegrating 4 mg PO Q8H PRN #30 tab 04/05/21 tablet linaclotide 72 mcg capsule See Rx Instructions PO DAILY #90 05/05/21 (Linzess) cap bisacodyl 5 mg tablet,delayed 10 mg PO BEDTIME PRN #20 tab 05/11/21 release (Dulcolax (bisacodyl)) cephalexin 500 mg capsule 500 mg PO QID 10 Days #40 cap 05/11/21 doxycycline hyclate 100 mg tablet 100 mg PO BID #20 tab 05/11/21 polyethylene glycol 3350 17 17 g PO DAILY PRN #510 g 05/11/21 gram/dose oral powder (Miralax) doxycycline hyclate 100 mg tablet 100 mg PO BID #20 tab 05/24/21 Allergies Allergy/AdvReac Type Severity Reaction Status Date / Time milk [MILK] Allergy Severe enterocolit Verified 05/24/21 14:40 is wheat [WHEAT] Allergy Intermediate enterocolit Verified 05/24/21 14:40 is amoxicillin [From AUGMENTIN] AdvReac Intermediate N/V Verified 05/24/21 14:40 clavulanic acid AdvReac Intermediate N/V Verified 05/24/21 14:40 [From AUGMENTIN] ibuprofen [From MOTRIN] AdvReac Mild ULCERS Verified 05/24/21 14:40 naproxen [NAPROXEN] AdvReac Mild ULCERS Verified 05/24/21 14:40 NSAIDS (Non-Steroidal AdvReac Unknown stomach Verified 05/24/21 14:40 Anti-Inflamma upset [NSAIDS] corn AdvReac Nausea and Verified 05/24/21 14:40 Vomiting oats AdvReac Abdominal Verified 05/24/21 14:40 Pain Review of Systems Review of Systems: Yes all other systems are reviewed and are negative [facility] Past Medical History Medical History Anemia Arthritis Asthma Cellulitis COPD (chronic obstructive pulmonary disease) Deficient knowledge of leg surgery home care Dysphagia GERD (gastroesophageal reflux disease) Hepatitis C Hiatal hernia History of drug abuse History of kidney stones HTN (hypertension) Internal and external bleeding hemorrhoids Methadone use Pre-op evaluation Sciatica Severe persistent asthma Sinusitis Surgical History History of appendectomy History of colonoscopy History of hemorrhoidectomy History of laparoscopy Hx of endoscopy Family History Family History Father Diabetes Hypertension Mother Hypertension Social History Social History Housing: Apartment Are you a primary human services care specialist to a significant other at home: No Do you presently have visiting nurse or other home services: No Alcohol intake: never Patient Tobacco Use Status: Never used Tobacco Second Hand Smoke Exposure: No Use of substances other than those prescribed or required for medical reasons: No Substance Use Type: Opiates Advance Directives: No Advance Directives Information Provided: Yes Current occupational status: unemployed Physical Exam Vital Signs: Vital Signs: Last Vital Signs Temp 98.4 F 05/24/21 21:00 Pulse 101 H 05/24/21 21:00 Resp 18 05/24/21 21:00 BP 106/76 05/24/21 21:00 Pulse Ox 95 05/24/21 21:00 Body Mass Index 38.7 Appearance: Alert. Oriented X3. No acute distress. ENT: Pharynx normal. Oral Mucosa moist Neck: Normal inspection. Neck supple. CVS: Normal heart rate and rhythm. Pulses normal. Respiratory: No respiratory distress. Equal air entry bilateral, no wheezing/rales/rhonchi Abdomen: Soft and nontender. Bowel sounds are present, Skin: Skin warm and dry. Normal skin color. Normal skin turgor. Extremities: No lower extremity edema. No calf tenderness slight tenderness on the anus part of the right foot no erythema no open wound Neuro: Oriented X 3. No motor deficit. MDM - Extremity (Nontraumatic) Lab Data Attestation: I reviewed the patient's lab results. Result diagrams: 05/24/21 21:09 05/24/21 21:09 Labs: Lab Results 05/24/21 05/24/21 Range/Units 21:09 21:09 WBC 14.2 H (4.8-10.8) X10*3/uL RBC 4.81 (4.60-5.80) X10*6/uL Hgb 15.0 (14.0-18.0) g/dl Hct 45.4 (42-52) % MCV 94.4 (80-98) fL MCH 31.2 (27.0-33.0) pg MCHC 33.0 (31.0-36.0) g/dl RDW 13.2 (11.0-16.0) % Plt Count 245 (160-400) X10*3/uL MPV 10.9 (9.4-12.4) fL Immature Gran % (Auto) 0.8 H (0.0-0.4) % Neut % (Auto) 63.7 (45-73) % Lymph % (Auto) 25.2 (20-40) % Stevens % (Auto) 7.5 (2-11) % Eos % (Auto) 2.5 (0-4) % Baso % (Auto) 0.3 (0-2) % Lymph # (Auto) 3.6 (1.2-4.9) X10*3/uL Stevens # (Auto) 1.1 (0.1-1.2) X10*3/uL Eos # (Auto) 0.4 (0.0-0.4) X10*3/uL Baso # (Auto) 0.0 (0.0-0.2) X10*3/uL Abs Immat Gran (auto) 0.12 H (0.00-0.03) X10*3/uL Absolute Neuts (auto) 9.0 H (2.0-8.3) X10*3/uL Absolute Nucleated RBC 0.000 (0.0-0.012) X10*3/uL Nucleated RBC % (auto) 0.0 (0.0-0.2) /100WBC Sodium 137 (135-145) mmol/L Potassium 4.5 (3.3-5.1) mmol/L Chloride 102 (96-108) mmol/L Carbon Dioxide 26 (22-29) mmol/L Anion Gap 14 (12-20) BUN 22 H (9-16) mg/dL Creatinine 1.66 H (0.5-1.4) mg/dL Estim Creat Clear Calc 62.1 Estimated GFR 44 Random Glucose 239 H (60-115) mg/dL Calcium 9.9 (8.4-10.2) mg/dL Total Bilirubin 0.9 (0.0-1.0) mg/dL AST 114 H (5-37) U/L ALT 155 H (0-40) U/L Alkaline Phosphatase 168 H D (39-117) U/L Total Protein 7.6 (6.5-8.0) g/dL Albumin 4.4 (3.5-5.0) g/dL Discharge Plan Discharge Clinical Impression: Cellulitis Qualifiers: Site of cellulitis: extremity Site of cellulitis of extremity: lower extremity Laterality: right Qualified Code(s): L03.115 - Cellulitis of right lower limb Patient Disposition: Home, Self-Care Instructions: Cellulitis (ED) Additional Instructions: Local care as advised Take doxycycline 1 tablet twice daily for 10 days Report to the ER/PCP if worsening of the redness or pain or high fever Prescriptions: New doxycycline hyclate 100 mg tablet 100 mg PO BID Qty: 20 RF: 0 No Action pantoprazole 40 mg tablet,delayed release (DR/EC) 40 mg PO BID Qty: 60 RF: 3 albuterol sulfate 90 mcg/actuation HFA aerosol inhaler 2 puff PO Q6H PRN (Reason: shortness of breath or wheezing) Qty: 6.7 RF: 1 lactulose 10 gram/15 mL solution 20 g PO TID Qty: 500 RF: 0 lidocaine 5 % cream 1 appl topical TID PRN (Reason: pain) Qty: 15 RF: 0 cromolyn 100 mg/5 mL concentrate 200 mg PO QID 30 Days Qty: 1200 RF: 3 budesonide 3 mg capsule,delayed,extend.release 9 mg PO DAILY Qty: 270 RF: 1 Dupixent Pen 300 mg/2 mL pen injector 300 mg subcut Q2W 365 Days Qty: 54 RF: 0 cetirizine 10 mg tablet 10 mg PO DAILY Qty: 90 RF: 1 ondansetron 4 mg tablet,disintegrating 4 mg PO Q8H PRN (Reason: nausea and vomiting) Qty: 30 RF: 2 Linzess 72 mcg capsule See Rx Instructions PO DAILY Qty: 90 RF: 3 methadone 10 mg/mL Concentrate 53 mg PO DAILY RF: 0 lidocaine HCl [Aspercreme (lidocaine HCl)] 4 % cream 1 appl topical BID PRN (Reason: pain) Qty: 120 RF: 0 fluconazole [Diflucan] 150 mg tablet 150 mg PO Q3D Qty: 2 RF: 0 doxycycline monohydrate 100 mg capsule 100 mg PO BID Qty: 20 RF: 0 mupirocin 2 % ointment 1 appl topical BID Qty: 22 RF: 0 bisacodyl [Dulcolax (bisacodyl)] 5 mg tablet,delayed release (DR/EC) 10 mg PO BEDTIME PRN (Reason: constipation) Qty: 20 RF: 0 polyethylene glycol 3350 [Miralax] 17 gram/dose powder 17 g PO DAILY PRN (Reason: constipation) Qty: 510 RF: 0 cephalexin 500 mg capsule 500 mg PO QID 10 Days Qty: 40 RF: 0 doxycycline hyclate 100 mg tablet 100 mg PO BID Qty: 20 RF: 0 ipratropium-albuterol 0.5 mg-3 mg(2.5 mg base)/3 mL solution for nebulization 3 ml inhalation Q6H PRN (Reason: Dyspnea) RF: 0 losartan-hydrochlorothiazide 50-12.5 mg tablet 1 tab PO BID RF: 0 Combivent Respimat 20-100 mcg/actuation mist 1 puff inhalation QID 30 Days Qty: 4 RF: 11 doxycycline hyclate 100 mg capsule 100 mg PO BID RF: 0 Metamucil 3.4 gram/5.4 gram powder 1 tbsp PO DAILY Qty: 660 RF: 3 Calmoseptine 0.44-20.6 % ointment 1 appl topical QID PRN (Reason: skin irritation) Qty: 71 RF: 0 levofloxacin 500 mg tablet 500 mg PO DAILY 14 Days Qty: 14 RF: 0 Cortisporin-TC 3.3-3-10-0.5 mg/mL drops,suspension 4 drp otic (ear) left QID 7 Days Qty: 10 RF: 0
[2021-05-24] MEDS: ondansetron HCL 4 MG/2 ML VIAL IVPUSH (22:25)
== END 2021-05-24 23:23 | disposition home or self-care (01) ==
PROVIDERS: Emergency Provider Internal Medicine; PCP Family Medicine
DX: L03.115 Cellulitis of right lower limb (principal); Z79.899 Other long term (current) drug therapy
CPT/HCPCS: 36415; 73620; 80053; 85025; 96365; 96375; 99284; J0690; J2405

== ENCOUNTER 2021-05-27 07:54 | Outpatient (REF) | payer OTHER, SELFPAY ==
[2021-05-27 11:59] LABS: Anion Gap 14 (12-20); Blood Urea Nitrogen 11 mg/dL (9-16); Calcium 9.3 mg/dL (8.4-10.2); Carbon Dioxide 27 mmol/L (22-29); Chloride 101 mmol/L (96-108); Estimated Glomerular Filt Rate > 60; Glucose Random 428 mg/dL (60-115); Potassium 4.1 mmol/L (3.3-5.1); Sodium 138 mmol/L (135-145)
== END 2021-05-27 07:55 | disposition home or self-care (01) ==
LOC: HO.WFDLDS 07:54
PROVIDERS: Visit Provider Family Medicine
DX: N17.9 Acute kidney failure, unspecified (principal)
CPT/HCPCS: 36415; 80048

== ENCOUNTER → 2021-06-03 11:12 | Outpatient (BNVA) | payer OTHER, SELFPAY | PROVIDERS: PCP Family Medicine; Visit Provider Orthopaedic Surgery | DX: M79.604 Pain in right leg (principal); M67.88 Other specified disorders of synovium and tendon, other site; L08.9 Local infection of the skin and subcutaneous tissue, unspecified; E11.9 Type 2 diabetes mellitus without complications | CPT/HCPCS: 99202 ==

== ENCOUNTER → 2021-06-17 15:00 | Outpatient (BNVA) | payer OTHER, SELFPAY | PROVIDERS: PCP Family Medicine; Visit Provider Hospitalist | DX: J45.50 Severe persistent asthma, uncomplicated (principal); J01.00 Acute maxillary sinusitis, unspecified | CPT/HCPCS: 90686; 99212 ==

== ENCOUNTER 2021-06-28 12:06 | Outpatient (REF) | payer OTHER, SELFPAY | END 2021-06-28 12:07 | disposition home or self-care (01) | LOC: HO.LAB 12:06 | PROVIDERS: PCP Family Medicine; Visit Provider Internal Medicine | DX: Z20.822 Contact with and (suspected) exposure to COVID-19 (principal) | CPT/HCPCS: C9803; U0003; U0005 ==

== ENCOUNTER → 2021-07-04 11:51 | Outpatient (BNVA) | payer OTHER, SELFPAY | PROVIDERS: PCP Family Medicine; Visit Provider Orthopaedic Surgery | DX: M79.604 Pain in right leg (principal); M67.88 Other specified disorders of synovium and tendon, other site; G58.9 Mononeuropathy, unspecified; F11.20 Opioid dependence, uncomplicated | CPT/HCPCS: 99212 ==

== ENCOUNTER 2021-07-05 13:36 | Outpatient (REF) | payer OTHER, SELFPAY ==
--- NOTE | ~2021-07-05 | US_ITS ---
EXAMINATION: US VENOUS ULTRASOUND WITH DOPPLER LOWER EXTREMITY, RIGHT CLINICAL INFORMATION: Right lower extremity pain. Assess for occult DVT. COMPARISON: Right lower extremity venous ultrasound with Doppler 01/12/2020 TECHNIQUE: Ultrasound of the deep veins is performed from the hip to the calf with compression sonography and color and pulse Doppler assessment. Spectral analysis with color-flow imaging is performed. FINDINGS: There is normal venous compression and respiratory variation and augmented flow. The visualized common femoral vein, superficial femoral vein, profunda femoral vein, popliteal vein, and the trifurcation region shows no evidence of deep venous thrombosis. No popliteal fossa cyst demonstrated. US/US venous duplex LE RT IMPRESSION: No DVT demonstrated in the right lower extremity.
== END 2021-07-05 13:37 | disposition home or self-care (01) ==
LOC: HO.HMGCX 13:36
PROVIDERS: PCP Family Medicine; Visit Provider Family Medicine
DX: M79.604 Pain in right leg (principal)
CPT/HCPCS: 93971

== ENCOUNTER → 2021-07-14 11:45 | Outpatient (BNVA) | payer OTHER, SELFPAY | PROVIDERS: Visit Provider Nurse Practitioner Psychiatric/Mental Health | DX: Z51.81 Encounter for therapeutic drug level monitoring (principal); F11.20 Opioid dependence, uncomplicated | CPT/HCPCS: 80305; 99212 ==

== ENCOUNTER 2021-07-21 15:27 | Emergency (ER) | payer OTHER, SELFPAY ==
[2021-07-21 16:55] VITALS: BP 108/71; PULSE 120; RESP 18; TEMP 36.7; O2SAT 95; BMI 37.5
[2021-07-21 17:36] LABS: MANUAL DIFF FLAG NO
[2021-07-21 17:39] LABS: Appearance Urine HAZY; Color Urine DK YELLOW; Glucose Urine UA 100 MG/DL (NEG); Leukocyte Esterase Urine NEG (NEG); Nitrite Urine POS (NEG); Specific Gravity - Urine >= 1.030 (1.005-1.025); UACC Culture Trigger YES; Urine Blood NEG (NEG); Urine Ketones 15 MG/DL (NEG); Urine Protein 2+ MG/DL (NEG-TRACE)
[2021-07-21 17:41] LABS: Basophils Absolute Auto 0.1 X10*3/uL (0.0-0.2); Basophils Percent Auto 0.4 % (0-2); Eosinophils Percent Auto 0.2 % (0-4); Hematocrit 49.1 % (42.0-52.0); Hemoglobin 16.5 g/dl (14.0-18.0); Imm Gran Abs Auto 0.21 X10*3/uL (0.00-0.03); Imm Gran Pct Auto 1.2 % (0.0-0.4); Lymphocytes Absolute Auto 3.2 X10*3/uL (1.2-4.9); Lymphocytes Percent Auto 17.8 % (20-40); Mean Corpuscular HGB Conc 33.6 g/dl (31.0-36.0); Mean Corpuscular Hemoglobin 31.3 pg (27.0-33.0); Mean Corpuscular Volume 93.2 fL (80.0-98.0); Mean Platelet Volume 11.5 fL (9.4-12.4); Monocytes Absolute Auto 1.2 X10*3/uL (0.1-1.2); Monocytes Percent Auto 6.8 % (2-11); Neutrophils Absolute Auto 13.3 x10*3/uL (2.0-8.3); Neutrophils Percent Auto 73.6 % (45-73); Platelet Count 264 X10*3/uL (160-400); Red Blood Count 5.27 X10*6/uL (4.60-5.80); Red Cell Distribution Width 13.2 % (11.0-16.0)
[2021-07-21 18:02] LABS: Calcium 10.2 mg/dL (8.4-10.2)
[2021-07-21 18:06] LABS: Mucus Urine 1+ /LPF; Squamous Epithelial Cell Urine 1+ /LPF
[2021-07-21 18:07] LABS: Alanine Aminotransferase 172 U/L (0-40); Albumin Level 5.1 g/dL (3.5-5.0); Alkaline Phosphatase 134 U/L (39-117); Anion Gap 20 (12-20); Aspartate Amino Transferase 92 U/L (5-37); Bilirubin Total 0.8 mg/dL (0.0-1.0); Blood Urea Nitrogen 24 mg/dL (9-16); Carbon Dioxide 23 mmol/L (22-29); Chloride 99 mmol/L (96-108); Creatinine Clr Calc Pharmacy 30.6; Estimated Glomerular Filt Rate 20; Glucose Random 234 mg/dL (60-115); Potassium 4.5 mmol/L (3.3-5.1); Sodium 137 mmol/L (135-145)
[2021-07-21 18:07] LABS: Calcium Oxalate Crystals Urine 1+ /LPF
[2021-07-21 18:09] LABS: RBC Urine 0 /HPF (0); WBC Urine 0-2 /HPF (0-4)
[2021-07-21 18:10] LABS: Bacteria Urine TRACE /LPF
== END 2021-07-21 20:53 | disposition left against medical advice (07) ==
PROVIDERS: Emergency Provider Emergency Medicine; PCP Family Medicine
DX: R10.9 Unspecified abdominal pain (principal); R11.10 Vomiting, unspecified; R19.7 Diarrhea, unspecified; I10 Essential (primary) hypertension; F11.20 Opioid dependence, uncomplicated
CPT/HCPCS: 36415; 80053; 81001; 85025; 87086; 99283

== ENCOUNTER → 2021-07-25 10:09 | Outpatient (BNVA) | payer OTHER, SELFPAY | PROVIDERS: PCP Family Medicine; Visit Provider Internal Medicine | DX: M79.604 Pain in right leg (principal); G90.50 Complex regional pain syndrome I, unspecified | CPT/HCPCS: 99202 ==

== ENCOUNTER 2021-08-17 06:08 | Outpatient (REF) | payer OTHER, SELFPAY | END 2021-08-17 06:09 | disposition home or self-care (01) | LOC: HO.RADIR 06:08 | PROVIDERS: Visit Provider Internal Medicine | DX: G90.50 Complex regional pain syndrome I, unspecified (principal) | CPT/HCPCS: 64447 ==

== ENCOUNTER → 2021-08-19 09:34 | Outpatient (BNVA) | payer OTHER, SELFPAY | PROVIDERS: Visit Provider Internal Medicine | DX: G90.50 Complex regional pain syndrome I, unspecified (principal); G58.9 Mononeuropathy, unspecified | CPT/HCPCS: Q3014 ==

== ENCOUNTER 2021-08-24 10:57 | Outpatient (REF) | payer OTHER, SELFPAY ==
--- NOTE | ~2021-08-24 | XR_ITS ---
EXAMINATION: XR ABDOMEN KUB CLINICAL INDICATION: Constipation COMPARISON: None TECHNIQUE: 3 views of the abdomen. FINDINGS: The bowel gas pattern is notable for moderate amount of stool without fecal impaction and without evidence of ileus or obstruction. No unusual soft tissue calcifications are noted. The bones are unremarkable. XR/XR KUB IMPRESSION: As above
== END 2021-08-24 10:58 | disposition home or self-care (01) ==
LOC: HO.XRAY 10:57
PROVIDERS: PCP Family Medicine; Visit Provider Internal Medicine Gastroenterology
DX: K59.00 Constipation, unspecified (principal)
CPT/HCPCS: 74018

== ENCOUNTER 2021-09-05 11:09 | Outpatient (REF) | payer OTHER, SELFPAY ==
[2021-09-05 14:25] LABS: Estimated Average Glucose 206 mg/dL; Hemoglobin A1c % 8.8 %
[2021-09-05 14:30] LABS: Alanine Aminotransferase 91 U/L (0-40); Albumin Level 4.5 g/dL (3.5-5.0); Alkaline Phosphatase 130 U/L (39-117); Anion Gap 11 (12-20); Aspartate Amino Transferase 60 U/L (5-37); Bilirubin Total 0.4 mg/dL (0.0-1.0); Blood Urea Nitrogen 12 mg/dL (9-16); Calcium 9.8 mg/dL (8.4-10.2); Carbon Dioxide 28 mmol/L (22-29); Chloride 103 mmol/L (96-108); Estimated Glomerular Filt Rate > 60; Glucose Random 223 mg/dL (60-115); Potassium 4.2 mmol/L (3.3-5.1); Sodium 138 mmol/L (135-145); Total Protein 7.9 g/dL (6.5-8.0)
== END 2021-09-05 11:10 | disposition home or self-care (01) ==
LOC: HO.WFDLDS 11:09
PROVIDERS: Visit Provider Family Medicine
DX: Z20.822 Contact with and (suspected) exposure to COVID-19 (principal); R09.81 Nasal congestion; N17.9 Acute kidney failure, unspecified; E11.9 Type 2 diabetes mellitus without complications
CPT/HCPCS: 80053; 83036; U0003; U0005

== ENCOUNTER → 2021-09-13 10:52 | Outpatient (BNVA) | payer OTHER, SELFPAY | PROVIDERS: PCP Family Medicine; Visit Provider Internal Medicine Gastroenterology | DX: K21.9 Gastro-esophageal reflux disease without esophagitis (principal); R10.13 Epigastric pain | CPT/HCPCS: Q3014 ==

== ENCOUNTER 2021-09-21 11:17 | Day surgery (SDC) | payer OTHER, SELFPAY ==
--- NOTE | 2021-09-20 10:46 | P.CONAN_ITS ---
Documented by User: Glory Tony NP 09/20/21 10:51 HPI - Anesthesia Eval Consult details Narrative: 51yo M for Right Saphenous Nerve Stimulator Temporary Implant *Multiple Med Allergies* Methadone daily h/o multiple intubations for status asthmaticus PMFSH Active Problems Active Problems: All Active Problems (Updated 09/05/21 @ 11:06 by Sharif Jacques) Elevated serum creatinine (Acute) Diabetes type 2, uncontrolled (Acute) Nasal congestion (Acute) Diabetes type 2, controlled (Acute) Constipation (Acute) CRPS (complex regional pain syndrome type I) (Acute) Nerve disorder (Acute) Diabetes mellitus (Acute) Acute kidney injury (Acute) Nausea (Acute) Pain of right lower extremity (Acute) Right foot infection (Acute) Achilles tendinosis (Acute) Sinusitis (Acute) Pre-op evaluation (Acute) Sciatica (Acute) Methadone use (Acute) HTN (hypertension) (Acute) History of kidney stones (Acute) Hiatal hernia (Acute) Hepatitis C (Acute) GERD (gastroesophageal reflux disease) (Acute) Dysphagia (Acute) COPD (chronic obstructive pulmonary disease) (Acute) Asthma (Acute) Arthritis (Acute) Anemia (Acute) Epigastric abdominal pain (Acute) Otitis externa (Acute) Internal and external bleeding hemorrhoids (Acute) Severe persistent asthma (Acute) Cellulitis (Acute) History of drug abuse (Acute) Past Medical History Medical History Anemia Arthritis Asthma Cellulitis COPD (chronic obstructive pulmonary disease) Deficient knowledge of leg surgery home care Dysphagia GERD (gastroesophageal reflux disease) Hepatitis C Hiatal hernia History of drug abuse History of kidney stones HTN (hypertension) Internal and external bleeding hemorrhoids Methadone use Pre-op evaluation Sciatica Severe persistent asthma Sinusitis Family History Family History Father Diabetes Hypertension Mother Hypertension Family history of problems with anesthesia: No Surgical History Surgical History History of appendectomy History of colonoscopy History of hemorrhoidectomy History of laparoscopy Hx of endoscopy History of Problems with Anesthesia: No Social History Social History Housing: Apartment Are you a primary manager medicare marketing to a significant other at home: No Do you presently have visiting nurse or other home services: No Alcohol intake: never Patient Tobacco Use Status: Never used Tobacco Second Hand Smoke Exposure: No Use of substances other than those prescribed or required for medical reasons: No Substance Use Type: Opiates Are you DNR?: No Advance Directives: No Advance Directives Information Provided: No Current occupational status: unemployed Meds Allergies Allergy/AdvReac Type Severity Reaction Status Date / Time milk [MILK] Allergy Severe enterocolit Verified 09/13/21 10:52 is wheat [WHEAT] Allergy Intermediate enterocolit Verified 09/13/21 10:52 is amoxicillin [From AUGMENTIN] AdvReac Intermediate N/V Verified 09/13/21 10:52 clavulanic acid AdvReac Intermediate N/V Verified 09/13/21 10:52 [From AUGMENTIN] ibuprofen [From MOTRIN] AdvReac Mild ULCERS Verified 09/13/21 10:52 naproxen [NAPROXEN] AdvReac Mild ULCERS Verified 09/13/21 10:52 NSAIDS (Non-Steroidal AdvReac Unknown stomach Verified 09/13/21 10:52 Anti-Inflamma upset [NSAIDS] corn AdvReac Nausea and Verified 09/13/21 10:52 Vomiting oats AdvReac Abdominal Verified 09/13/21 10:52 Pain Home Medications Medication Instructions Recorded Confirmed Last Taken Type losartan 50 mg-hydrochlorothiazide 1 tab PO BID 06/11/20 08/17/21 Unknown History 12.5 mg tablet methadone 10 mg/mL oral concentrate 53 mg PO DAILY 08/31/20 08/17/21 09/21/21 History fluticasone propionate 50 spray INTRANASAL 05/24/21 08/17/21 Unknown History mcg/actuation nasal spray,suspension ipratropium 20 mcg-albuterol 100 1 puff INHALATION QID 09/13/21 Unknown History mcg/actuation mist for inhalation (Combivent Respimat) Exam Exam Date and Time: September 20, 2021 1046 Pertinent Lab Results Pertinent Lab Results: Laboratory Tests 07/21/21 09/05/21 17:20 11:10 WBC 18.0 H Hgb 16.5 Hct 49.1 Plt Count 264 Sodium 138 Potassium 4.2 Chloride 103 Carbon Dioxide 28 BUN 12 Creatinine 0.87 Assessment and Plan Assessment Anesthesia Assessment: Chart Reviewed Final Anesthetic Review Family History of Problems with Anesthesia: No History of Problems with Anesthesia: No Documented by User: Johanny Galvan MD 09/21/21 12:31 PMF Past Medical History Medical History Anemia Arthritis Asthma Cellulitis COPD (chronic obstructive pulmonary disease) Deficient knowledge of leg surgery home care Dysphagia GERD (gastroesophageal reflux disease) Hepatitis C Hiatal hernia History of drug abuse History of kidney stones HTN (hypertension) Internal and external bleeding hemorrhoids Methadone use Pre-op evaluation Sciatica Severe persistent asthma Sinusitis Family History Family History Father Diabetes Hypertension Mother Hypertension Surgical History Surgical History History of appendectomy History of colonoscopy History of hemorrhoidectomy History of laparoscopy Hx of endoscopy Social History Social History Housing: Apartment Are you a primary manager medicare marketing to a significant other at home: No Do you presently have visiting nurse or other home services: No Alcohol intake: never Patient Tobacco Use Status: Never used Tobacco Second Hand Smoke Exposure: No Use of substances other than those prescribed or required for medical reasons: No Substance Use Type: Opiates Are you DNR?: No Advance Directives: No Advance Directives Information Provided: No Current occupational status: unemployed Meds Allergies Allergy/AdvReac Type Severity Reaction Status Date / Time milk [MILK] Allergy Severe enterocolit Verified 09/13/21 10:52 is wheat [WHEAT] Allergy Intermediate enterocolit Verified 09/13/21 10:52 is amoxicillin [From AUGMENTIN] AdvReac Intermediate N/V Verified 09/13/21 10:52 clavulanic acid AdvReac Intermediate N/V Verified 09/13/21 10:52 [From AUGMENTIN] ibuprofen [From MOTRIN] AdvReac Mild ULCERS Verified 09/13/21 10:52 naproxen [NAPROXEN] AdvReac Mild ULCERS Verified 09/13/21 10:52 NSAIDS (Non-Steroidal AdvReac Unknown stomach Verified 09/13/21 10:52 Anti-Inflamma upset [NSAIDS] corn AdvReac Nausea and Verified 09/13/21 10:52 Vomiting oats AdvReac Abdominal Verified 09/13/21 10:52 Pain Home Medications Medication Instructions Recorded Confirmed Last Taken Type losartan 50 mg-hydrochlorothiazide 1 tab PO BID 06/11/20 08/17/21 Unknown History 12.5 mg tablet methadone 10 mg/mL oral concentrate 53 mg PO DAILY 08/31/20 08/17/21 09/21/21 History fluticasone propionate 50 spray INTRANASAL 05/24/21 08/17/21 Unknown History mcg/actuation nasal spray,suspension ipratropium 20 mcg-albuterol 100 1 puff INHALATION QID 09/13/21 Unknown History mcg/actuation mist for inhalation (Combivent Respimat) Exam Airway Mallampati Class: IV TM Dist: >3cm Neck ROM: Full Heart: RRR Lungs: CTA Assessment and Plan Final Anesthetic Review NPO: Yes ASA Class: III Final Preanesthetic Review: No Changes in Pt Med Stat, Meds/Allgs Chart Reviewed, Consent Obtained/Reviewed and Anes Risks/Benef Reviewed Patient Risk: Low Procedure Risk: Low Anesthetic Plan Anesthetic Plan: MAC: Disposition: Standard PACU
--- NOTE | 2021-09-20 14:20 | P.OP_ITS ---
Operative Note Operative Note Date of Service: 09/21/21 Narrative: Peripheral Nerve Stimulation Temporary Lead Placement, Ultrasound- Guided, Saphenous Nerve, Right ? After the risks, benefits and alternatives were discussed with the patient and informed consentwas obtained, patient was placed in the supine position and padded to foster comfort. Appropriate skin and bony landmarks were identified, and pertinent vascular structures were located. The skin overlying the needle entry site was prepped and draped in sterile fashion. Ultrasound was used to identify the femoral artery, the femoral vein and the saphenous nerve. After identifying and marking the intended target along the course of the Saphenous nerve, the skin around the planned entry point and the subcutaneous tissues Were injected with local anesthetic. An introducer needle and stimulating probe were assembled, inserted and advanced along the intended course of the saphenous; nerve, taking care to maintain the proper depth of insertion as the introducer was advanced under ultrasound guidance. The introducer needle was delivered to a location in proximity to the nerve taking care not to puncture the femoral artery or the vein. Multiple stimulation parameters were used to deliver stimulation to the saphenous nerve in concert with stimulating at multiple positions around the nerve. Nerve target acquisition was confirmed noting generation of sensory and mild motor effects (paresthesia, muscle tension, etc) in the medial knee, leg and ankle; corresponding to the distribution of the saphenous nerve. Various electrical parameter combinations were tested, and the lead location was adjusted (physica lly relocated under ultrasound guidance) until the patient indicated medial knee paresthesia and tension overlapping the distribution of the patient?s typical region of pain. The stimulating probe was removed from the introducer and a percutaneous lead was guided through the needle and delivered to a location in similar proximity to the nerve. Final location was verified with electrical stimulation and documented. The introducer needle was removed, and the exposed end of the percutaneous lead was attached to an external stimulator unit. Various electrical parameter combinations were again tested until the patient indicated paresthesia and muscle tension overlapping the distribution of the patient?s typical region of pain. After confirming that lead impedance was in the normal range, the external unit was detached, the needle was removed, and the lead was anchored at the skin. The lead was threaded into the connector block and electrical continuity and desired patient response was confirmed. The connector block was attached to the external stimulator unit. The site was covered with a sterile occlusive dressing. A final ultrasound image was taken to document final placement. The patient was observed for stability of vital signs and comfort.
--- NOTE | 2021-09-20 14:20 | P.BOP_ITS ---
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
--- NOTE | 2021-09-20 14:20 | MHC.SHP ---
Pre-Procedural Eval Section A Date of Service: 09/21/21 The patient is an INPATIENT: No Changes since office visit: Yes Patient answered all questions The History & Physical has been completed within 30 days and I have reviewed it.: Yes Section B Chief Complaint: complex regional pain syndrome Relevant Social History: None Present Medications: None Medical History: Significant History (CRPS) History of Previous Operations: Relevant previous surgery/procedure and date(s) (Surgical nerve injury) Allergies: Allergies Allergy/AdvReac Type Severity Reaction Status Date / Time milk [MILK] Allergy Severe enterocolit Verified 09/13/21 10:52 is wheat [WHEAT] Allergy Intermediate enterocolit Verified 09/13/21 10:52 is amoxicillin [From AUGMENTIN] AdvReac Intermediate N/V Verified 09/13/21 10:52 clavulanic acid AdvReac Intermediate N/V Verified 09/13/21 10:52 [From AUGMENTIN] ibuprofen [From MOTRIN] AdvReac Mild ULCERS Verified 09/13/21 10:52 naproxen [NAPROXEN] AdvReac Mild ULCERS Verified 09/13/21 10:52 NSAIDS (Non-Steroidal AdvReac Unknown stomach Verified 09/13/21 10:52 Anti-Inflamma upset [NSAIDS] corn AdvReac Nausea and Verified 09/13/21 10:52 Vomiting oats AdvReac Abdominal Verified 09/13/21 10:52 Pain Plan Diagnosis/Plan: Unchanged I have reviewed the history and physical and performed a pertinent physical examination on my patient. No changes have occurred unless specified.
[2021-09-21 11:32] VITALS: BP 177/99; PULSE 94; RESP 16; TEMP 36.8; O2SAT 94; BMI 38.3
[2021-09-21 11:34] LABS: Glucose, Whole Blood 242 mg/dL (60-115)
[2021-09-21] MEDS: Lactated Ringers 1,000 ML 100 ML IVCONT (11:54)
[2021-09-21] MEDS: Albuterol Sulfate (0.083%) 2.5 MG/3 ML VIAL.NEB INHALE (12:02)
[2021-09-21 13:07] VITALS: BP 145/87; PULSE 89; RESP 16; TEMP 37; O2SAT 96
--- NOTE | 2021-09-21 13:08 | HO.POSTANES ---
Post Anesthesia Evaluation Post Anesthesia Evaluation Vital Signs: Vital Signs Temp Pulse Resp BP Pulse Ox 09/21/21 11:32 98.2 F 94 16 177/99 H 94 Anesthesia: Monitored Mental Status: Awake Pain Control: Satisfactory Nausea/Vomiting: None Hydration: Adequate Anesthesia-Related Issues: No Anes. Related Issues
[2021-09-21 13:12] VITALS: BP 134/80; PULSE 81; RESP 19; O2SAT 93
[2021-09-21 13:17] VITALS: BP 134/103; PULSE 91; RESP 19; O2SAT 94
[2021-09-21 14:08] VITALS: BP 155/80; PULSE 85; RESP 16; TEMP 36.4; O2SAT 98
== END 2021-09-21 14:50 ==
LOC: HO.SSS 11:17
PROVIDERS: PCP Family Medicine; Visit Provider Internal Medicine
PROC: (CPT 64555; principal; 2021-09-21 12:30)
DX: G90.521 Complex regional pain syndrome I of right lower limb (principal); G58.9 Mononeuropathy, unspecified; J44.9 Chronic obstructive pulmonary disease, unspecified; J45.50 Severe persistent asthma, uncomplicated; I10 Essential (primary) hypertension; D64.9 Anemia, unspecified; K21.9 Gastro-esophageal reflux disease without esophagitis; F11.90 Opioid use, unspecified, uncomplicated; F19.11 Other psychoactive substance abuse, in remission; Z79.899 Other long term (current) drug therapy; Z88.0 Allergy status to penicillin; Z88.8 Allergy status to other drugs, medicaments and biological substances; Z79.51 Long term (current) use of inhaled steroids
CPT/HCPCS: 64555; 82947; C1778; J2250

== ENCOUNTER → 2021-09-23 10:57 | Outpatient (BNVA) | payer OTHER, SELFPAY | PROVIDERS: PCP Family Medicine; Visit Provider Internal Medicine | DX: Z13.89 Encounter for screening for other disorder (principal) | CPT/HCPCS: 99211 ==

== ENCOUNTER → 2021-09-30 08:21 | Outpatient (BNVA) | payer OTHER, SELFPAY | PROVIDERS: PCP Family Medicine; Visit Provider Internal Medicine | DX: M79.604 Pain in right leg (principal); G90.50 Complex regional pain syndrome I, unspecified | CPT/HCPCS: Q3014 ==

== ENCOUNTER → 2021-10-14 11:14 | Outpatient (BNVA) | payer OTHER, SELFPAY | PROVIDERS: PCP Family Medicine; Visit Provider Internal Medicine | DX: G90.50 Complex regional pain syndrome I, unspecified (principal) | CPT/HCPCS: 99212 ==

== ENCOUNTER → 2021-10-31 15:39 | Outpatient (BNVA) | payer OTHER, SELFPAY | PROVIDERS: PCP Family Medicine; Visit Provider Internal Medicine | DX: Z46.2 Encounter for fitting and adjustment of other devices related to nervous system and special senses (principal); G90.50 Complex regional pain syndrome I, unspecified | CPT/HCPCS: 99212 ==

== ENCOUNTER 2021-11-23 07:07 | Outpatient (REF) | payer OTHER, SELFPAY ==
[2021-11-23 12:12] LABS: Blood Urea Nitrogen 10 mg/dL (9-16); Estimated Glomerular Filt Rate > 60
== END 2021-11-23 07:08 | disposition home or self-care (01) ==
LOC: HO.WFDLDS 07:07
PROVIDERS: Visit Provider Internal Medicine Gastroenterology
DX: R10.13 Epigastric pain (principal)
CPT/HCPCS: 36415; 82565; 84520

== ENCOUNTER → 2021-11-28 08:22 | Outpatient (BNVA) | payer OTHER, SELFPAY | PROVIDERS: Visit Provider Internal Medicine | DX: G90.50 Complex regional pain syndrome I, unspecified (principal) | CPT/HCPCS: Q3014 ==

== ENCOUNTER 2021-12-03 12:41 | Emergency (ER) | payer OTHER, SELFPAY ==
[2021-12-03 12:55] VITALS: BP 149/97; PULSE 98; RESP 20; TEMP 35.8; O2SAT 95; BMI 37.5
--- NOTE | 2021-12-03 13:20 | ED_ITS ---
HPI - General Adult General Chief complaint: Extremity Problem Stated complaint: r leg pain wound Time Seen by Provider: 12/03/21 13:16 Source: patient Mode of arrival: ambulatory Limitations: no limitations History of Present Illness HPI narrative: Patient is a 51 year old male presenting to the emergency department today with right lower leg pain. Patient states that his right lower leg was initially very itchy and after itching it a lot over the last few weeks, it has begun to get red and hurt. Patient states that he has known venous issues in his legs and has seen Dr. Armando in the past who fixed his left leg for him. Patient states that he was encouraged to wear compression stockings but they hurt him too much so he doesn't. Patient denies any dizziness, lightheadedness, abdominal pain, nausea, vomiting, fever, chills, blurry vision, double vision, loss of vision, chest pain, difficulty breathing, shortness of breath, back pain, night sweats, pain with urination, increased urinary frequency, increased urinary urgency, blood in his urine or stool, syncope or a near syncopal episode, recent trauma or falls, bowel incontinence, bladder incontinence, bowel retention, bladder retention, or any other complaints at this time. Patient states that he had a procedure on the right lower leg months ago at [facility], on the opposite side of what is bothering him now, to have his calf muscle stretched. Onset (ago): week(s) Location: right and lower extremity Radiation: non-radiation Severity: mild Severity scale (1-10): 3 Quality: dull Pain Consistency: intermittent Relieving factors: none Exacerbating factors: none Treatments prior to arrival: none Related Data Home Medications Medication Instructions Recorded Confirmed methadone 10 mg/mL oral concentrate 53 mg PO DAILY 08/31/20 10/31/21 fluticasone propionate 50 spray INTRANASAL 05/24/21 10/31/21 mcg/actuation nasal spray,suspension ipratropium 20 mcg-albuterol 100 1 puff INHALATION QID 09/13/21 10/31/21 mcg/actuation mist for inhalation (Combivent Respimat) Previous Rx's Medication Instructions Recorded psyllium husk 3.4 gram/5.4 gram 1 tbsp PO DAILY #660 g 08/11/20 oral powder (Metamucil) cromolyn 100 mg/5 mL oral 200 mg (10 mL) PO QID 30 Days 12/31/20 concentrate #1200 ml dupilumab 300 mg/2 mL subcutaneous 300 mg (2 mL) SUBCUT Q2W 365 Days 02/10/21 pen injector (Dupixent) #54 ml cetirizine 10 mg tablet 10 mg PO DAILY #90 tab 04/04/21 linaclotide 72 mcg capsule See Rx Instructions PO DAILY #90 05/05/21 (Linzess) cap bisacodyl 5 mg tablet,delayed 10 mg PO BEDTIME PRN #20 tab 05/11/21 release (Dulcolax (bisacodyl)) cephalexin 500 mg capsule 500 mg PO QID 10 Days #40 cap 05/11/21 famotidine 40 mg tablet 40 mg PO BEDTIME 90 Days #90 tab 06/06/21 Ventolin HFA 90 mcg/actuation 2 puff INHALATION QID PRN 30 Days 06/17/21 aerosol inhaler (albuterol sulfate) #18 g NS loperamide 2 mg tablet (Imodium 2 mg PO Q6H PRN #14 tab 06/21/21 A-D) celecoxib 200 mg capsule 200 mg PO BID PRN 90 Days #60 cap 06/29/21 albuterol sulfate 90 mcg/actuation 2 puff PO Q6H PRN 30 Days #8.5 g 07/16/21 aerosol inhaler budesonide-formoterol HFA 160 2 puff INHALATION BID 30 Days 07/16/21 mcg-4.5 mcg/actuation aerosol #10.2 g inhaler (Symbicort) ipratropium 0.5 mg-albuterol 3 mg 3 ml INHALATION Q6H PRN 30 Days 07/16/21 (2.5 mg base)/3 mL nebulization #360 ml soln metformin 500 mg tablet 500 mg PO BID #180 tab 08/16/21 montelukast 10 mg tablet 10 mg PO BEDTIME #90 tab 09/05/21 glipizide 10 mg tablet 10 mg PO BID 30 Days #60 tab 09/12/21 naloxegol 25 mg tablet 25 mg PO QAM 30 Days #30 tab 09/13/21 blood sugar diagnostic (FreeStyle #200 ea 09/20/21 Lite Strips) blood-glucose meter (FreeStyle #1 ea 09/20/21 Lite Meter) lancets 28 gauge (FreeStyle #100 ea 09/20/21 Lancets) lancets 28 gauge (FreeStyle #200 ea 09/20/21 Lancets) bisacodyl 10 mg/30 mL enema (Fleet 5 mg (15 mL) CT BID PRN #37 ml 09/29/21 Bisacodyl) linaclotide 290 mcg capsule 290 mcg PO DAILY #30 cap 10/03/21 (Linzess) budesonide 3 mg 9 mg PO DAILY #270 cap 10/10/21 capsule,delayed,extended release docusate sodium 100 mg capsule 100 mg PO BID 30 Days #60 cap 10/12/21 polyethylene glycol 3350 17 17 g PO DAILY PRN #510 g 10/17/21 gram/dose oral powder (Miralax) peg 3350-electrolytes 236 4,000 ml PO ONCE 1 Days #4000 ml 11/08/21 gram-22.74 gram-6.74 gram-5.86 gram solution (Golytely) losartan 25 mg tablet 25 mg PO DAILY 30 Days #30 tab 11/09/21 prucalopride 2 mg tablet 2 mg PO DAILY 30 Days #30 tab 11/15/21 (Motegrity) ondansetron 4 mg disintegrating 4 mg PO Q8H #60 tab 11/16/21 tablet sennosides 8.6 mg tablet (Natural 17.2 mg PO DAILY #60 tab 11/16/21 Senna Laxative) cephalexin 500 mg capsule 500 mg PO Q6H 7 Days #28 cap 12/03/21 Allergies Allergy/AdvReac Type Severity Reaction Status Date / Time milk [MILK] Allergy Severe enterocolit Verified 11/28/21 08:23 is wheat [WHEAT] Allergy Intermediate enterocolit Verified 11/28/21 08:23 is amoxicillin [From AUGMENTIN] AdvReac Intermediate N/V Verified 11/28/21 08:23 clavulanic acid AdvReac Intermediate N/V Verified 11/28/21 08:23 [From AUGMENTIN] ibuprofen [From MOTRIN] AdvReac Mild ULCERS Verified 11/28/21 08:23 naproxen [NAPROXEN] AdvReac Mild ULCERS Verified 11/28/21 08:23 NSAIDS (Non-Steroidal AdvReac Unknown stomach Verified 11/28/21 08:23 Anti-Inflamma upset [NSAIDS] corn AdvReac Nausea and Verified 11/28/21 08:23 Vomiting oats AdvReac Abdominal Verified 11/28/21 08:23 Pain Review of Systems Constitutional: Constitutional: Reports no additional constitutional complaints, Denies chills, Denies fever(s) and Denies night sweats Eyes: Eyes: Reports no additional eye complaints, Denies blurry vision, Denies change in vision, Denies diplopia, Denies eye discharge, Denies loss of vision and Denies eye pain ENT: Denies dizziness Cardiovascular: Cardiovascular: Reports no additional cardiovascular complaints, Denies chest pain, Denies lightheadedness, Denies Loss of Consciousness and Denies dyspnea Respiratory: Respiratory: Reports no additional respiratory complaints and Denies dyspnea Gastrointestinal: Gastrointestinal: Reports no additional gastrointestinal complaints, Denies abdominal pain, Denies melena, Denies hematochezia, Denies change in bowel habits and Denies change in stool character Genitourinary: Genitourinary: Reports no additional male genitourinary complaints, Denies hematuria, Denies oliguria, Denies difficulty urinating, Denies dysuria, Denies urinary frequency, Denies urinary hesitancy, Denies urinary incontinence and Denies urinary urgency Musculoskeletal: Musculoskeletal: Reports no additional musculoskeletal com plaints, Denies numbness and Denies tingling Integumentary/Breasts: Comments: itchy and red area to the right lower leg Neurologic: Denies dizziness, Denies loss of vision, Denies numbness and Denies tingling Psychiatric: Psychiatric: Reports no additional psychiatric complaints Endocrine: Endocrine: Reports no additional endocrine complaints Hematologic/Lymphatic: Hematologic/Lymphatic: Reports no additional hematologic/lymphatic complaints Allergic/Immunologic: Allergic/Immunologic: Reports no additional allergic/immunologic complaints [facility] Past Medical History Attestation statement: The following information was validated with the patient. Source: old records reviewed Medical History Anemia Arthritis Asthma Cellulitis COPD (chronic obstructive pulmonary disease) Deficient knowledge of leg surgery home care Dysphagia GERD (gastroesophageal reflux disease) Hepatitis C Hiatal hernia History of drug abuse History of kidney stones HTN (hypertension) Internal and external bleeding hemorrhoids Methadone use Pre-op evaluation Sciatica Severe persistent asthma Sinusitis Surgical History History of appendectomy History of colonoscopy History of hemorrhoidectomy History of laparoscopy Hx of endoscopy Family History Family History Father Diabetes Hypertension Mother Hypertension Social History Social History Housing: Apartment Are you a primary pharmacy care coordinator to a significant other at home: No Do you presently have visiting nurse or other home services: No Alcohol intake: never Patient Tobacco Use Status: Never used Tobacco e-Cigarette/Vaping Use: Never Used Second Hand Smoke Exposure: No Substance Use Type: Opiates Advance Directives: Yes Advance Directives Information Provided: Yes Advance Directives on File: No service: No Current occupational status: unemployed Current occupational exposures/hazards: No Cognitive needs: No Hearing needs: No Vision needs: No Physical Exam ED Vital Signs: Vital Signs - 24 hr 12/03/21 12:55 Temperature 96.5 F L Pulse Rate 98 Respiratory Rate 20 Blood Pressure 149/97 H Pulse Oximetry 95 BMI result Body Mass Index 37.5 Const General: cooperative, no acute distress, alert and awake Nutritional Appearance: well nourished Orientation/consciousness: patient oriented x3 Limitations: no limitations HENMT Head: Yes normal to inspection and Yes atraumatic Ears: hearing grossly normal bilaterally and external ears normal General nose exam: Normal external nose present, no nasal discharge noted and no epistaxis Face and sinus: Yes normal facial exam, No abrasion and No laceration Mouth: Normal oral and palatal mucosa present, no drooling and no muffled voice Eyes General: appearance normal, both eyes and all related structures Periorbital: periorbital findings normal Eyelids: Yes eyelids normal Conjunctivae: conjunctivae normal Pupils: Equal, round and reactive pupils present EOM: EOMs intact bilaterally Neck Neck: Yes normal visual inspection, Yes full ROM and Yes no lymphadenopathy Chest Chest palpation & inspection: normal inspection of the chest Resp Effort & Inspection: normal respiratory effort and able to speak in complete sentences Auscultation: clear to auscultation bilaterally Cardio Rate: regular rate Rhythm: regular rhythm GI Inspection: Yes normal to inspection Skin Other: small area of dry skin with surrounding erythema to the lower right leg along the lateral aspect, no streaking or warmth patient has venous stasis dermatitis to bilateral lower extremities small incision scar on the medial aspect of the right lower leg with no signs of warmth, redness, or swelling Neuro General: patient oriented x3 and moves all extremities Cranial nerves: Yes Equal, round and reactive pupils present Cognition (Neuro): normal cognition Motor exam (neuro): 5/5 motor strength present throughout Sensory Exam: Normal double simultaneous stimulation for sensation Coordination: [id number] test normal Extrem General: Yes normal to inspection, Yes full ROM and Yes capillary refill normal Psych Appearance: grossly normal Mental Status: mental status grossly normal Affect: normal affect Attitude: cooperative Thought process: Normal thought process present Thought content: Normal thought content present Insight: Good insight present (Psych) Medical Decision Making MDM Narrative Medical decision making narrative: Patient is a 51 year old male presenting to the emergency department today with right lower leg itching and pain. Patient's physical exam showed venous stasis dermatitis to the patient's bilateral lower extremities, a small incision scar on the medial aspect of the right lower extremity with no swelling, warmth, or erythema, and a small red and dry area of skin to the lateral aspect of the right lower leg. I explained my physical exam findings to the patient. I explained that it appears the patient has venous stasis dermatitis, over scratched the itchy area, causing openings in the skin, and now has a localized cellulitis secondary to that. I do not suspect sepsis or a deep tissue infection in this patient. There was no calf swelling or general calf pain. I do not suspect DVT in this patient. I answered all questions asked by the patient. I stressed the importance of the patient taking his medication as prescribed. I stressed the importance of the patient following up with his primary care provider, the wound center, and his vascular surgeon. I stressed the importance of the patient returning to the emergency department immediately if his symptoms were to worsen or if he were to develop any dizziness, shortness of breath, difficulty breathing, chest pain, blurry vision, loss of vision, nausea, vomiting, abdominal pain, fever, chills, back pain, or any other complaints. Patient verbalized agreement and understanding with this treatment plan and discharge. Differential Diagnosis Differential Diagnosis: cellulitis Medical Records Medical records reviewed: Yes I reviewed the patient's medical records. Discharge Plan Discharge Clinical Impression: Cellulitis, Venous stasis Patient Disposition: Home, Self-Care Additional Instructions: Follow up with your primary care provider, the wound center, and your vascular surgeon. Return to the emergency department immediately if your symptoms worsen or if you develop any dizziness, shortness of breath, difficulty breathing, chest pain, blurry vision, loss of vision, nausea, vomiting, abdominal pain, fever, chills, back pain, or any other complaints. Prescriptions: New cephalexin 500 mg capsule 500 mg PO Q6H 7 Days Qty: 28 0RF No Action cromolyn 100 mg/5 mL concentrate 200 mg PO QID 30 Days Qty: 1200 3RF Dupixent Pen 300 mg/2 mL pen injector 300 mg subcut Q2W 365 Days Qty: 54 0RF cetirizine 10 mg tablet 10 mg PO DAILY Qty: 90 1RF Linzess 72 mcg capsule See Rx Instructions PO DAILY Qty: 90 3RF Rx Instructions: 2 tabs morning and afternoon PO daily; famotidine 40 mg tablet 40 mg PO BEDTIME 90 Days Qty: 90 1RF celecoxib 200 mg capsule 200 mg PO BID PRN (Reason: pain) 90 Days Qty: 60 2RF ipratropium-albuterol 0.5 mg-3 mg(2.5 mg base)/3 mL solution for nebulization 3 ml inhalation Q6H PRN (Reason: Dyspnea) 30 Days Qty: 360 6RF budesonide-formoterol [Symbicort] 160-4.5 mcg/actuation HFA aerosol inhaler 2 puff inhalation BID 30 Days Qty: 10.2 11RF albuterol sulfate 90 mcg/actuation HFA aerosol inhaler 2 puff PO Q6H PRN (Reason: shortness of breath or wheezing) 30 Days Qty: 8.5 6RF metformin 500 mg tablet 500 mg PO BID Qty: 180 1RF montelukast 10 mg tablet 10 mg PO BEDTIME Qty: 90 11RF (DME) lancets [FreeStyle Lancets] 28 gauge misc See Rx Instructions .Route Qty: 100 7RF Rx Instructions: As directed bs checks 2-3 times per day (DME) blood-glucose meter [FreeStyle Lite Meter] Kit See Rx Instructions .ROUTE .MEDSUPPLY Qty: 1 0RF Rx Instructions: DX: E11.9, test blood sugar 2 times a day, duration 999 days (DME) lancets [FreeStyle Lancets] 28 gauge misc See Rx Instructions .ROUTE .MEDSUPPLY Qty: 200 4RF Rx Instructions: As directed (DME) FreeStyle Lite Strips Strip See Rx Instructions .Route Qty: 200 7RF Rx Instructions: As directed, to test blood sugar 2 times a day Fleet Bisacodyl 10 mg/30 mL enema [address] BID PRN (Reason: constipation) Qty: 37 1RF Rx Instructions: may use 1 to 2 times a day as needed for constipation Linzess 290 mcg capsule 290 mcg PO DAILY Qty: 30 2RF budesonide 3 mg capsule,delayed,extend.release 9 mg PO DAILY Qty: 270 1RF docusate sodium 100 mg capsule 100 mg PO BID 30 Days Qty: 60 3RF polyethylene glycol 3350 [Miralax] 17 gram/dose powder 17 g PO DAILY PRN (Reason: constipation) Qty: 510 0RF peg 3350-electrolytes [Golytely] 236-22.74-6.74 -5.86 gram recon soln 4,000 ml PO ONCE 1 Days Qty: 4000 0RF Rx Instructions: Take as directed by the office. Motegrity 2 mg tablet 2 mg PO DAILY 30 Days Qty: 30 1RF Hold Instructions: Doctor's Order sennosides [Natural Senna Laxative] 8.6 mg tablet 17.2 mg PO DAILY Qty: 60 0RF ondansetron 4 mg tablet,disintegrating 4 mg PO Q8H Qty: 60 1RF methadone 10 mg/mL Concentrate 53 mg PO DAILY 0RF Rx Instructions: Goes to [facility] bisacodyl [Dulcolax (bisacodyl)] 5 mg tablet,delayed release (DR/EC) 10 mg PO BEDTIME PRN (Reason: constipation) Qty: 20 0RF cephalexin 500 mg capsule 500 mg PO QID 10 Days Qty: 40 0RF fluticasone propionate 50 mcg/actuation spray,suspension intranasal 0RF glipizide 10 mg tablet 10 mg PO BID 30 Days Qty: 60 2RF Rx Instructions: Take 1 tab 20 minutes before breakfast and 1 tab 20 minutes before lunch. losartan 25 mg tablet 25 mg PO DAILY 30 Days Qty: 30 2RF Metamucil 3.4 gram/5.4 gram powder 1 tbsp PO DAILY Qty: 660 3RF Rx Instructions: mix into at least 8 oz of water or juice before administering albuterol sulfate [Ventolin HFA] 90 mcg/actuation HFA aerosol inhaler 2 puff inhalation QID PRN (Reason: shortness of breath or wheezing) 30 Days Qty: 18 11RF loperamide [Imodium A-D] 2 mg tablet 2 mg PO Q6H PRN (Reason: loose stool) Qty: 14 0RF Combivent Respimat 20-100 mcg/actuation mist 1 puff inhalation QID 0RF Movantik 25 mg tablet 25 mg PO QAM 30 Days Qty: 30 1RF Rx Instructions: must be taken on empty stomach; no food 1 hr after or 2-3 hrs before dose Referrals: Good Harper MD [Primary Care Provider] - 2 days Sony Armando MD [Physician] - 2 days Isabel Shane MD [Physician] - 2 days Print Language: British
== END 2021-12-03 13:46 | disposition home or self-care (01) ==
PROVIDERS: Emergency Provider Emergency Medicine; PCP Family Medicine
DX: L03.115 Cellulitis of right lower limb (principal); I87.2 Venous insufficiency (chronic) (peripheral); M79.604 Pain in right leg; F11.20 Opioid dependence, uncomplicated; E11.9 Type 2 diabetes mellitus without complications; I10 Essential (primary) hypertension; Z79.899 Other long term (current) drug therapy
CPT/HCPCS: 99283

== ENCOUNTER 2021-12-05 11:34 | Outpatient (REF) | payer OTHER, SELFPAY ==
[2021-12-05 14:06] LABS: Estimated Average Glucose 235 mg/dL; Hemoglobin A1c % 9.8 %
[2021-12-05 14:32] LABS: Alanine Aminotransferase 84 U/L (0-40); Albumin Level 4.3 g/dL (3.5-5.0); Alkaline Phosphatase 127 U/L (39-117); Anion Gap 13 (12-20); Aspartate Amino Transferase 61 U/L (5-37); Bilirubin Total 0.7 mg/dL (0.0-1.0); Blood Urea Nitrogen 10 mg/dL (9-16); Calcium 9.7 mg/dL (8.4-10.2); Carbon Dioxide 29 mmol/L (22-29); Chloride 98 mmol/L (96-108); Estimated Glomerular Filt Rate > 60; Glucose Fasting 228 mg/dL (60-99); Sodium 136 mmol/L (135-145); Total Protein 7.6 g/dL (6.5-8.0)
== END 2021-12-05 11:35 | disposition home or self-care (01) ==
LOC: HO.WFDLDS 11:34
PROVIDERS: Visit Provider Family Medicine
DX: Z00.00 Encounter for general adult medical examination without abnormal findings (principal); N17.9 Acute kidney failure, unspecified; R73.01 Impaired fasting glucose
CPT/HCPCS: 36415; 80048; 80053; 83036

== ENCOUNTER 2021-12-06 13:52 | Outpatient (REF) | payer OTHER, SELFPAY ==
--- NOTE | ~2021-12-06 | CT_ITS ---
EXAMINATION: CT ENTEROGRAPHY ABDOMEN AND PELVIS WITH CONTRAST CLINICAL INFORMATION: Periumbilical pain COMPARISON: Previous CT of the abdomen and pelvis August 2020 TECHNIQUE: Study performed with oral VoLumen (1350 mL) and 480 mL of water to distend the abdomen. The patient was injected with 85 mL Omnipaque 350 intravenous contrast which was administered without adverse effect. Coronal and sagittal reformatted images were obtained at the technologist's workstation. This CT examination was performed using dose optimization techniques as appropriate, variously including the following: *Automated exposure control *Adjustment of mA and/or kV according to patient size (this includes techniques or standardized protocols for targeted exams where dose is matched to indication/reason for exam; i.e. extremities or head) *Use of iterative reconstruction technique DLP: 6 x 5 mGy-cm FINDINGS: GASTROINTESTINAL FINDINGS: Stomach: Well-distended and normal in appearance. Small intestine: Satisfactorily distended and normal in appearance. Large intestine: Well-distended and normal in appearance. No perirectal changes demonstrated. The appendix is not seen and may have been removed. Additional findings: No abnormal enhancement of the vasa recta or significant mesenteric or retroperitoneal lymphadenopathy is seen. No abdominal abscess or fistulous tract demonstrated. ABDOMINAL AND PELVIC CT FINDINGS: Liver, gallbladder, biliary tract: The liver is enlarged and low in attenuation suggestive of fatty infiltration. The gallbladder is normal. There is no intrahepatic biliary duct dilatation. The extrahepatic bile ducts are prominent, common bile duct measuring 1.2 cm. This is similar to previous exam. Pancreas: Normal Spleen: Normal Adrenal glands and kidneys: Normal Ureters and bladder: Normal Lymphovascular structures: Normal Bones: There are degenerative changes at L5-S1. Lung bases: Normal There is a small umbilical hernia containing fat. There are postoperative changes to the lower abdominal wall. CT/CT enterography IMPRESSION: Enlarged fatty liver. Stable dilatation of the common bile duct measuring up to 1.2 cm.
[2021-12-06] MEDS: iohexoL 350 MG/ML 100 ML INFUS..BTL IV (15:48)
[2021-12-06] MEDS: Sorbitol/Mannit/Xanth Imaging 500 ML LIQUID 1500 ML PO (15:49)
== END 2021-12-06 13:53 | disposition home or self-care (01) ==
LOC: HO.US 13:52
PROVIDERS: Visit Provider Internal Medicine Gastroenterology
DX: R10.33 Periumbilical pain (principal); R10.13 Epigastric pain
CPT/HCPCS: 74177; Q9967

== ENCOUNTER 2021-12-07 12:37 | Outpatient (RCR) | payer OTHER, SELFPAY | END 2021-12-09 09:09 | disposition home or self-care (01) | LOC: HO.WCC 12:37 | PROVIDERS: PCP Family Medicine; Visit Provider Surgery | DX: Z09 Encounter for follow-up examination after completed treatment for conditions other than malignant neoplasm (principal); I87.321 Chronic venous hypertension (idiopathic) with inflammation of right lower extremity; L03.115 Cellulitis of right lower limb; I87.8 Other specified disorders of veins; J44.9 Chronic obstructive pulmonary disease, unspecified | CPT/HCPCS: 99213 ==

== ENCOUNTER → 2021-12-16 08:24 | Outpatient (BNVA) | payer OTHER, SELFPAY | PROVIDERS: PCP Family Medicine; Visit Provider Internal Medicine Gastroenterology | DX: Z13.89 Encounter for screening for other disorder (principal) | CPT/HCPCS: Q3014 ==

== ENCOUNTER 2021-12-17 13:41 | Emergency (ER) | payer OTHER, SELFPAY ==
--- NOTE | ~2021-12-17 | US_ITS ---
EXAMINATION: US SCROTUM CLINICAL INFORMATION: Scrotal pain and swelling. Testicular pain. Evaluate for torsion.. COMPARISON: CT images of the abdomen and pelvis from 12/06/2021. TECHNIQUE: A sonogram of the scrotum was performed assessing harris-scale appearance and color Doppler flow. Spectral Doppler analysis of the arterial and venous flow were performed in the testes bilaterally. FINDINGS: The right testicle measures 3.2 x 1.4 x 2.4 cm and left testicle 2.8 x 1.6 x 2.2 cm. There is microlithiasis of both testicles. No solid testicular mass. There is a 0.7 cm simple cyst of the tunica albuginea of the left testicle. The color Doppler images with spectral waveforms show presence of normal arterial and venous flow within each testicle. The epididymis is unremarkable bilaterally. No hydrocele or varicocele. US/US scrotum doppler IMPRESSION: * No acute abnormalities. * No evidence of epididymitis, orchitis or testicular torsion. * Bilateral testicular microlithiasis is noted. No suspicious intratesticular lesion. In the absence of any other risk factors for testicular cancer (e.g., personal history of testicular cancer, a father or brother with testicular cancer, history of cryptorchidism or maldescent, testicular atrophy, or other risk factors), no further imaging or biochemical follow-up is necessary; all that is recommended is routine testicular self-examination. However, if the patient has risk factors for testicular cancer, referral to a urologist for evaluation and determination of an optimal follow-up strategy is recommended. Reference: [email or web address]. [email or web address]. AJR: [id number] 2016.
--- NOTE | ~2021-12-17 | XR_ITS ---
EXAMINATION: XR CHEST CLINICAL INFORMATION: Fever COMPARISON: 08/22/2020 TECHNIQUE: Frontal view of the chest was obtained. FINDINGS: There is scarring. The lingula and possibly a small left-sided pleural effusion. No significant abnormality is noted involving the heart, lungs, mediastinum, bony thorax or soft tissues. XR/XR chest 1V IMPRESSION: Lingular scarring with possible pleural effusion
--- NOTE | ~2021-12-17 | CT_ITS ---
EXAMINATION: CT ABDOMEN AND PELVIS WITH CONTRAST CLINICAL INFORMATION: Fever, testicular pain, fatigue evaluate for prostatitis COMPARISON: 12/06/2021 and 08/23/2020 TECHNIQUE: Multidetector volumetric images were obtained from the superior aspect of the liver through the pubic symphysis following administration 85 mL of Omnipaque 350 intravenous contrast. Sagittal and coronal reformatted images were obtained on the technologist's workstation. Oral contrast: No This CT examination was performed using dose optimization techniques as appropriate, variously including the following: *Automated exposure control *Adjustment of mA and/or kV according to patient size (this includes techniques or standardized protocols for targeted exams where dose is matched to indication/reason for exam; i.e. extremities or head) *Use of iterative reconstruction technique DLP: 842 mGy-cm FINDINGS: LUNG BASES: There is linear atelectasis at the left lung base LIVER, GALLBLADDER, AND BILIARY TREE: Liver is of low attenuation due to hepatic steatosis and enlarged. There are no intrahepatic masses or ductal dilatation. The gallbladder is unremarkable with no evidence of radiopaque gallstones, gallbladder wall thickening, or obvious pericholecystic inflammatory changes. CBD isn't dilated measuring approximately 1.3 cm but there are no evidence of calculi or masses, and stable since July 2020 PANCREAS: Unremarkable. SPLEEN: Unremarkable. ADRENAL GLANDS: Unremarkable KIDNEYS AND URETERS: The kidneys are normal in size, shape, and attenuation. No hydronephrosis, hydroureter, or calculi seen. No perinephric stranding. BLADDER: Unremarkable. GASTROINTESTINAL TRACT: Dalia amount of fecal debris retained in the colon. Appendix is surgically absent. There is no evidence of colitis, diverticulitis or diverticulosis. Loops of small bowel unremarkable. There is no mesenteric inflammatory changes. ABDOMINAL WALL: There postsurgical changes of anterior abdominal wall and small fat-containing umbilical hernia. LYMPH NODES: Normal. VASCULAR: Unremarkable. PELVIC VISCERA: Unremarkable. OSSEOUS STRUCTURES: Unremarkable. CT/CT abdomen pelvis w con IMPRESSION: Hepatomegaly and hepatic steatosis. Chronically dilated CBD. Constipation. No acute abnormalities. Fleischner guidelines were followed.
[2021-12-17 13:58] VITALS: BP 179/108; PULSE 113; RESP 18; TEMP 37.3; O2SAT 95; BMI 38.0
[2021-12-17] MEDS: Acetaminophen 325 MG TABLET 650 MG PO (14:06)
--- NOTE | 2021-12-17 14:32 | ED.MALEGU ---
HPI - Male Genitourinary General Chief complaint: Urogenital-Male Stated complaint: groin pain body aches all over Time Seen by Provider: 12/17/21 14:27 Source: patient Mode of arrival: ambulatory Limitations: no limitations History of Present Illness HPI Narrative: diffuse body pain MD Complaint: testicle pain (body aches, sore throat, doesn't feel well) Onset (ago): day(s) (started this AM) Duration: constant Location: right testicle and left testicle Severity: moderate Quality: aching and dull Relieving factors: none Exacerbating factors: movement Associated symptoms: Reports other (body aches, chills, I feel like I got ran over by a car. ) Related Data Home Medications Medication Instructions Recorded Confirmed methadone 10 mg/mL oral concentrate 53 mg PO DAILY 08/31/20 10/31/21 fluticasone propionate 50 spray INTRANASAL 05/24/21 10/31/21 mcg/actuation nasal spray,suspension ipratropium 20 mcg-albuterol 100 1 puff INHALATION QID 09/13/21 10/31/21 mcg/actuation mist for inhalation (Combivent Respimat) Previous Rx's Medication Instructions Recorded psyllium husk 3.4 gram/5.4 gram 1 tbsp PO DAILY #660 g 08/11/20 oral powder (Metamucil) cromolyn 100 mg/5 mL oral 200 mg (10 mL) PO QID 30 Days 12/31/20 concentrate #1200 ml dupilumab 300 mg/2 mL subcutaneous 300 mg (2 mL) SUBCUT Q2W 365 Days 02/10/21 pen injector (Dupixent) #54 ml cetirizine 10 mg tablet 10 mg PO DAILY #90 tab 04/04/21 famotidine 40 mg tablet 40 mg PO BEDTIME 90 Days #90 tab 06/06/21 Ventolin HFA 90 mcg/actuation 2 puff INHALATION QID PRN 30 Days 06/17/21 aerosol inhaler (albuterol sulfate) #18 g NS loperamide 2 mg tablet (Imodium 2 mg PO Q6H PRN #14 tab 06/21/21 A-D) celecoxib 200 mg capsule 200 mg PO BID PRN 90 Days #60 cap 06/29/21 albuterol sulfate 90 mcg/actuation 2 puff PO Q6H PRN 30 Days #8.5 g 07/16/21 aerosol inhaler ipratropium 0.5 mg-albuterol 3 mg 3 ml INHALATION Q6H PRN 30 Days 07/16/21 (2.5 mg base)/3 mL nebulization #360 ml soln metformin 500 mg tablet 500 mg PO BID #180 tab 08/16/21 montelukast 10 mg tablet 10 mg PO BEDTIME #90 tab 09/05/21 naloxegol 25 mg tablet 25 mg PO QAM 30 Days #30 tab 09/13/21 blood sugar diagnostic (FreeStyle #200 ea 09/20/21 Lite Strips) blood-glucose meter (FreeStyle #1 ea 09/20/21 Lite Meter) lancets 28 gauge (FreeStyle #100 ea 09/20/21 Lancets) lancets 28 gauge (FreeStyle #200 ea 09/20/21 Lancets) bisacodyl 10 mg/30 mL enema (Fleet 5 mg (15 mL) MI BID PRN #37 ml 09/29/21 Bisacodyl) linaclotide 290 mcg capsule 290 mcg PO DAILY #30 cap 10/03/21 (Linzess) budesonide 3 mg 9 mg PO DAILY #270 cap 10/10/21 capsule,delayed,extended release docusate sodium 100 mg capsule 100 mg PO BID 30 Days #60 cap 10/12/21 polyethylene glycol 3350 17 17 g PO DAILY PRN #510 g 10/17/21 gram/dose oral powder (Miralax) peg 3350-electrolytes 236 4,000 ml PO ONCE 1 Days #4000 ml 11/08/21 gram-22.74 gram-6.74 gram-5.86 gram solution (Golytely) losartan 25 mg tablet 25 mg PO DAILY 30 Days #30 tab 11/09/21 prucalopride 2 mg tablet 2 mg PO DAILY 30 Days #30 tab 11/15/21 (Motegrity) sennosides 8.6 mg tablet (Natural 17.2 mg PO DAILY #60 tab 11/16/21 Senna Laxative) cephalexin 500 mg capsule 500 mg PO Q6H 7 Days #28 cap 12/03/21 glipizide 10 mg tablet 10 mg PO BID #180 tab 12/05/21 dulaglutide 0.75 mg/0.5 mL 0.75 mg (0.5 mL) SUBCUT QWEEK 28 12/07/21 subcutaneous pen injector Days #2 ml (Trulicity) hydralazine 10 mg tablet 10 mg PO TID 30 Days #90 tab 12/07/21 miscellaneous medical supply #1 ea 12/09/21 dicyclomine 10 mg capsule 10 mg PO TID #90 cap 12/16/21 ondansetron 4 mg disintegrating 4 mg PO Q8H #60 tab 12/16/21 tablet Allergies Allergy/AdvReac Type Severity Reaction Status Date / Time milk [MILK] Allergy Severe enterocolit Verified 12/17/21 14:01 is wheat [WHEAT] Allergy Intermediate enterocolit Verified 12/17/21 14:01 is amoxicillin [From AUGMENTIN] AdvReac Intermediate N/V Verified 12/17/21 14:01 clavulanic acid AdvReac Intermediate N/V Verified 12/17/21 14:01 [From AUGMENTIN] ibuprofen [From MOTRIN] AdvReac Mild ULCERS Verified 12/17/21 14:01 naproxen [NAPROXEN] AdvReac Mild ULCERS Verified 12/17/21 14:01 NSAIDS (Non-Steroidal AdvReac Unknown stomach Verified 12/17/21 14:01 Anti-Inflamma upset [NSAIDS] corn AdvReac Nausea and Verified 12/17/21 14:01 Vomiting oats AdvReac Abdominal Verified 12/17/21 14:01 Pain Review of Systems Review of Systems: Constitutional : No Weight loss, No Fever, pos Chills, No Fatigue, pos Malaise ENT/Mouth : pos sore throat, No Rhinorrhea Eyes: No Eye Pain, No Swelling, No Redness Cardiovascular : No Chest Pain, No SOB, No Dyspnea on Exertion, No Orthopnea, No Edema, No Palpitations Respiratory : No Cough, No Sputum, No Wheezing Gastrointestinal : pos Nausea, No Vomiting, No Diarrhea, No Constipation, No abdominal Pain, No Hematochezia, No Melena Genitourinary : No Dysuria, No Urinary Frequency, No Hematuria, pos testicular pain Musculoskeletal : No joint pain, pos Myalgias, No Joint Swelling, pos back pain Skin : No Skin Lesions, No rash Neuro : No Weakness, No Numbness, No Dizziness, No Headache Psych : No Anxiety/Panic, No Depression Heme/Lymph: No Bruising, No Bleeding,No Lymphadenopathy Endocrine : No Polyuria, No Polydipsia All other systems reviewed and are negative [facility] Past Medical History Attestation statement: The following information was validated with the patient. Medical History Anemia Arthritis Asthma Cellulitis COPD (chronic obstructive pulmonary disease) Deficient knowledge of leg surgery home care Dysphagia GERD (gastroesophageal reflux disease) Hepatitis C Hiatal hernia History of drug abuse History of kidney stones HTN (hypertension) Internal and external bleeding hemorrhoids Methadone use Pre-op evaluation Sciatica Severe persistent asthma Sinusitis Surgical History History of appendectomy History of colonoscopy History of hemorrhoidectomy History of laparoscopy Hx of endoscopy Family History Family History Father Diabetes Hypertension Mother Hypertension Social History Social History Housing: Apartment Are you a primary care advocate to a significant other at home: No Do you presently have visiting nurse or other home services: No Alcohol intake: never Patient Tobacco Use Status: Never used Tobacco e-Cigarette/Vaping Use: Never Used Second Hand Smoke Exposure: No Substance Use Type: Opiates Advance Directives: No Advance Directives Information Provided: No service: No Current occupational status: unemployed Current occupational exposures/hazards: No Cognitive needs: No Hearing needs: No Vision needs: No Physical Exam Vital Signs: Vital Signs: Last Vital Signs Temp 99.2 F 12/17/21 15:10 Pulse 100 12/17/21 15:10 Resp 16 12/17/21 15:10 BP 149/95 H 12/17/21 15:10 Pulse Ox 95 12/17/21 15:10 BMI result Body Mass Index 38.0 Appearance: Alert. Oriented X3. No acute distress. Eyes: Pupils equal, round and reactive to light. ENT: Pharynx normal. Neck: Normal inspection. Neck supple. CVS: Normal heart rate and rhythm. Pulses normal. Respiratory: No respiratory distress. Breath sounds normal. Abdomen: Soft and nontender. : testicles are tender to touch but no swelling, no erythema, no abscess no drainage Skin: Skin warm and dry. Normal skin color. Normal skin turgor. Extremities: No lower extremity edema. No calf ttp Neuro: Oriented X 3. No motor deficit. No sensory deficit. Course Course Course Narrative: signed out to Will BORJA pending US report given DM and his symptoms with elevated CRP, WBC count and low grade temps - will obtain CT scan to evaluate any abscess/prostatitis MDM - Male Genitourinary MDM Narrative Medical decision making narrative: 51 yo male with hx of DM, ANUM, CPRS, HTN, chronic pain issues, obesity comes in with vague complaints of testicular pain but no obvious infection/swelling - denies sexual activity, body pain, sore throat - will obtain labs, US of scrotum, UA, CXR, COVID/flu swab - lactic acid infl markers - currently no outward signs of infection on the testicles and the entire testicle is tender to touch without swelling - no crepitus felt - doubt tiffany's Lab Data Result diagrams: 12/17/21 14:50 12/17/21 14:50 Labs: Lab Results 12/17/21 12/17/21 12/17/21 Range/Units 14:50 14:50 14:50 WBC 13.1 H (4.8-10.8) X10*3/uL RBC 4.52 L (4.60-5.80) X10*6/uL Hgb 13.8 L (14.0-18.0) g/dl Hct 41.5 L (42.0-52.0) % MCV 91.8 (80.0-98.0) fL MCH 30.5 (27.0-33.0) pg MCHC 33.3 (31.0-36.0) g/dl RDW 12.8 (11.0-16.0) % Plt Count 206 (160-400) X10*3/uL MPV 11.0 (9.4-12.4) fL Immature Gran % (Auto) 0.7 H (0.0-0.4) % Neut % (Auto) 61.0 (45-73) % Lymph % (Auto) 25.6 (20-40) % [place] % (Auto) 9.9 (2-11) % Eos % (Auto) 2.4 (0-4) % Baso % (Auto) 0.4 (0-2) % Lymph # (Auto) 3.4 (1.2-4.9) X10*3/uL Valley # (Auto) 1.3 H (0.1-1.2) X10*3/uL Eos # (Auto) 0.3 (0.0-0.4) X10*3/uL Baso # (Auto) 0.1 (0.0-0.2) X10*3/uL Abs Immat Gran (auto) 0.09 H (0.00-0.03) X10*3/uL Absolute Neuts (auto) 8.0 (2.0-8.3) x10*3/uL Absolute Nucleated RBC 0.000 (0.0-0.012) X10*3/uL Nucleated RBC % (auto) 0.0 (0.0-0.2) /100WBC Sodium 133 L (135-145) mmol/L Potassium 4.2 (3.3-5.1) mmol/L Chloride 99 (96-108) mmol/L Carbon Dioxide 26 (22-29) mmol/L Anion Gap 12 (12-20) BUN 14 (9-16) mg/dL Creatinine 1.06 (0.5-1.4) mg/dL Estim Creat Clear Calc 96.5 Estimated GFR > 60 Random Glucose 315 H D (60-115) mg/dL Lactic Acid 1.6 (0.5-2.0) mmol/L Calcium 9.6 (8.4-10.2) mg/dL Magnesium 1.9 (1.6-2.6) mg/dL Total Bilirubin 0.6 (0.0-1.0) mg/dL Direct Bilirubin 0.2 (0.0-0.5) mg/dL AST 35 D (5-37) U/L ALT 64 H (0-40) U/L Alkaline Phosphatase 140 H (39-117) U/L C-Reactive Protein 2.96 H (< or = 0.50) mg/dL Total Protein 7.0 (6.5-8.0) g/dL Albumin 4.0 (3.5-5.0) g/dL Urine Color Urine Appearance Urine pH (5.0-8.0) Ur Specific [place] (1.005-1.025) Urine Protein (NEG-TRACE) MG/DL Urine Glucose (UA) (NEG) MG/DL Urine Ketones (NEG) MG/DL Urine Blood (NEG) Urine Nitrite (NEG) Ur Leukocyte Esterase (NEG) Urine RBC (0) /HPF Urine WBC (0-4) /HPF Ur Squamous Epith Cells /LPF Urine Bacteria /LPF COVID-19 (CHERYL) (Negative) COVID-19 Clin Com Influenza Type A (ELDER) (Negative) Influenza Type B (ELDER) (Negative) Influenza A & B Note 12/17/21 12/17/21 12/17/21 Range/Units 14:52 14:52 14:53 WBC (4.8-10.8) X10*3/uL RBC (4.60-5.80) X10*6/uL Hgb (14.0-18.0) g/dl Hct (42.0-52.0) % MCV (80.0-98.0) fL MCH (27.0-33.0) pg MCHC (31.0-36.0) g/dl RDW (11.0-16.0) % Plt Count (160-400) X10*3/uL MPV (9.4-12.4) fL Immature Gran % (Auto) (0.0-0.4) % Neut % (Auto) (45-73) % Lymph % (Auto) (20-40) % Valley % (Auto) (2-11) % Eos % (Auto) (0-4) % Baso % (Auto) (0-2) % Lymph # (Auto) (1.2-4.9) X10*3/uL [place] # (Auto) (0.1-1.2) X10*3/uL Eos # (Auto) (0.0-0.4) X10*3/uL Baso # (Auto) (0.0-0.2) X10*3/uL Abs Immat Gran (auto) (0.00-0.03) X10*3/uL Absolute Neuts (auto) (2.0-8.3) x10*3/uL Absolute Nucleated RBC (0.0-0.012) X10*3/uL Nucleated RBC % (auto) (0.0-0.2) /100WBC Sodium (135-145) mmol/L Potassium (3.3-5.1) mmol/L Chloride (96-108) mmol/L Carbon Dioxide (22-29) mmol/L Anion Gap (12-20) BUN (9-16) mg/dL Creatinine (0.5-1.4) mg/dL Estim Creat Clear Calc Estimated GFR Random Glucose (60-115) mg/dL Lactic Acid (0.5-2.0) mmol/L Calcium (8.4-10.2) mg/dL Magnesium (1.6-2.6) mg/dL Total Bilirubin (0.0-1.0) mg/dL Direct Bilirubin (0.0-0.5) mg/dL AST (5-37) U/L ALT (0-40) U/L Alkaline Phosphatase (39-117) U/L C-Reactive Protein (< or = 0.50) mg/dL Total Protein (6.5-8.0) g/dL Albumin (3.5-5.0) g/dL Urine Color YELLOW Urine Appearance CLEAR Urine pH 6.0 (5.0-8.0) Ur Specific [place] 1.010 (1.005-1.025) Urine Protein NEG (NEG-TRACE) MG/DL Urine Glucose (UA) >=1000 H (NEG) MG/DL Urine Ketones NEG (NEG) MG/DL Urine Blood 1+ H (NEG) Urine Nitrite NEG (NEG) Ur Leukocyte Esterase NEG (NEG) Urine RBC 1-4 (0) /HPF Urine WBC 0 (0-4) /HPF Ur Squamous Epith Cells TRACE /LPF Urine Bacteria NONE /LPF COVID-19 (CHERYL) Negative (Negative) COVID-19 Clin Com See Note Influenza Type A (ELDER) Negative (Negative) Influenza Type B (ELDER) Negative (Negative) Influenza A & B Note See Note Discharge Plan Discharge Clinical Impression: Pain in both testicles Patient Disposition: Still a Patient Prescriptions: No Action cromolyn 100 mg/5 mL concentrate 200 mg PO QID 30 Days Qty: 1200 3RF Dupixent Pen 300 mg/2 mL pen injector 300 mg subcut Q2W 365 Days Qty: 54 0RF cetirizine 10 mg tablet 10 mg PO DAILY Qty: 90 1RF famotidine 40 mg tablet 40 mg PO BEDTIME 90 Days Qty: 90 1RF celecoxib 200 mg capsule 200 mg PO BID PRN (Reason: pain) 90 Days Qty: 60 2RF ipratropium-albuterol 0.5 mg-3 mg(2.5 mg base)/3 mL solution for nebulization 3 ml inhalation Q6H PRN (Reason: Dyspnea) 30 Days Qty: 360 6RF albuterol sulfate 90 mcg/actuation HFA aerosol inhaler 2 puff PO Q6H PRN (Reason: shortness of breath or wheezing) 30 Days Qty: 8.5 6RF metformin 500 mg tablet 500 mg PO BID Qty: 180 1RF montelukast 10 mg tablet 10 mg PO BEDTIME Qty: 90 11RF (DME) lancets [FreeStyle Lancets] 28 gauge misc See Rx Instructions .Route Qty: 100 7RF Rx Instructions: As directed bs checks 2-3 times per day (DME) blood-glucose meter [FreeStyle Lite Meter] Kit See Rx Instructions .ROUTE .MEDSUPPLY Qty: 1 0RF Rx Instructions: DX: E11.9, test blood sugar 2 times a day, duration 999 days (DME) lancets [FreeStyle Lancets] 28 gauge misc See Rx Instructions .ROUTE .MEDSUPPLY Qty: 200 4RF Rx Instructions: As directed (DME) FreeStyle Lite Strips Strip See Rx Instructions .Route Qty: 200 7RF Rx Instructions: As directed, to test blood sugar 2 times a day Fleet Bisacodyl 10 mg/30 mL enema 5 mg MI BID PRN (Reason: constipation) Qty: 37 1RF Rx Instructions: may use 1 to 2 times a day as needed for constipation Linzess 290 mcg capsule 290 mcg PO DAILY Qty: 30 2RF budesonide 3 mg capsule,delayed,extend.release 9 mg PO DAILY Qty: 270 1RF docusate sodium 100 mg capsule 100 mg PO BID 30 Days Qty: 60 3RF polyethylene glycol 3350 [Miralax] 17 gram/dose powder 17 g PO DAILY PRN (Reason: constipation) Qty: 510 0RF peg 3350-electrolytes [Golytely] 236-22.74-6.74 -5.86 gram recon soln 4,000 ml PO ONCE 1 Days Qty: 4000 0RF Rx Instructions: Take as directed by the office. Motegrity 2 mg tablet 2 mg PO DAILY 30 Days Qty: 30 1RF Hold Instructions: Doctor's Order sennosides [Natural Senna Laxative] 8.6 mg tablet 17.2 mg PO DAILY Qty: 60 0RF glipizide 10 mg tablet 10 mg PO BID Qty: 180 3RF Rx Instructions: Take 1 tab 20 minutes before breakfast and 1 tab 20 minutes before lunch. (DME) miscellaneous medical supply Misc See Rx Instructions .Route Qty: 1 0RF Rx Instructions: quad cane small base methadone 10 mg/mL Concentrate 53 mg PO DAILY 0RF Rx Instructions: Goes to [facility] cephalexin 500 mg capsule 500 mg PO Q6H 7 Days Qty: 28 0RF fluticasone propionate 50 mcg/actuation spray,suspension intranasal 0RF hydralazine 10 mg tablet 10 mg PO TID 30 Days Qty: 90 1RF Trulicity 0.75 mg/0.5 mL pen injector 0.75 mg subcut QWEEK 28 Days Qty: 2 1RF losartan 25 mg tablet 25 mg PO DAILY 30 Days Qty: 30 2RF Metamucil 3.4 gram/5.4 gram powder 1 tbsp PO DAILY Qty: 660 3RF Rx Instructions: mix into at least 8 oz of water or juice before administering albuterol sulfate [Ventolin HFA] 90 mcg/actuation HFA aerosol inhaler 2 puff inhalation QID PRN (Reason: shortness of breath or wheezing) 30 Days Qty: 18 11RF loperamide [Imodium A-D] 2 mg tablet 2 mg PO Q6H PRN (Reason: loose stool) Qty: 14 0RF Combivent Respimat 20-100 mcg/actuation mist 1 puff inhalation QID 0RF Movantik 25 mg tablet 25 mg PO QAM 30 Days Qty: 30 1RF Rx Instructions: must be taken on empty stomach; no food 1 hr after or 2-3 hrs before dose ondansetron 4 mg tablet,disintegrating 4 mg PO Q8H Qty: 60 1RF dicyclomine 10 mg capsule 10 mg PO TID Qty: 90 0RF
[2021-12-17 14:58] LABS: MANUAL DIFF FLAG NO
[2021-12-17 15:00] LABS: Basophils Absolute Auto 0.1 X10*3/uL (0.0-0.2); Basophils Percent Auto 0.4 % (0-2); Eosinophils Absolute Auto 0.3 X10*3/uL (0.0-0.4); Eosinophils Percent Auto 2.4 % (0-4); Hematocrit 41.5 % (42.0-52.0); Hemoglobin 13.8 g/dl (14.0-18.0); Imm Gran Abs Auto 0.09 X10*3/uL (0.00-0.03); Imm Gran Pct Auto 0.7 % (0.0-0.4); Lymphocytes Absolute Auto 3.4 X10*3/uL (1.2-4.9); Lymphocytes Percent Auto 25.6 % (20-40); Mean Corpuscular HGB Conc 33.3 g/dl (31.0-36.0); Mean Corpuscular Hemoglobin 30.5 pg (27.0-33.0); Mean Corpuscular Volume 91.8 fL (80.0-98.0); Monocytes Absolute Auto 1.3 X10*3/uL (0.1-1.2); Monocytes Percent Auto 9.9 % (2-11); Platelet Count 206 X10*3/uL (160-400); Red Blood Count 4.52 X10*6/uL (4.60-5.80); Red Cell Distribution Width 12.8 % (11.0-16.0); White Blood Count 13.1 X10*3/uL (4.8-10.8)
[2021-12-17 15:00] LABS: Appearance Urine CLEAR; Color Urine YELLOW; Glucose Urine UA >=1000 MG/DL (NEG); Leukocyte Esterase Urine NEG (NEG); Nitrite Urine NEG (NEG); UACC Culture Trigger NO; Urine Blood 1+ (NEG); Urine Ketones NEG (NEG); Urine Protein NEG (NEG-TRACE)
[2021-12-17 15:10] VITALS: BP 149/95; PULSE 100; RESP 16; TEMP 37.3; O2SAT 95
[2021-12-17 15:11] LABS: Lactic Acid 1.6 mmol/L (0.5-2.0)
[2021-12-17 15:13] LABS: COVID-19 Test Negative (Negative); IDNOW Serial# 16C4AD1C
[2021-12-17] MEDS: oxyCODONE HCl Immed Release 5 MG TABLET 10 MG PO (15:14)
[2021-12-17] MEDS: Ondansetron ODT 4 MG TAB.RAPDIS TRANSLINGU (15:14)
[2021-12-17 15:15] LABS: Alanine Aminotransferase 64 U/L (0-40); Alkaline Phosphatase 140 U/L (39-117); Anion Gap 12 (12-20); Aspartate Amino Transferase 35 U/L (5-37); Bilirubin Direct 0.2 mg/dL (0.0-0.5); Bilirubin Total 0.6 mg/dL (0.0-1.0); Blood Urea Nitrogen 14 mg/dL (9-16); C Reactive Protein 2.96 mg/dL (< or = 0.50); Calcium 9.6 mg/dL (8.4-10.2); Carbon Dioxide 26 mmol/L (22-29); Chloride 99 mmol/L (96-108); Creatinine Clr Calc Pharmacy 96.5; Estimated Glomerular Filt Rate > 60; Glucose Random 315 mg/dL (60-115); Magnesium 1.9 mg/dL (1.6-2.6); Potassium 4.2 mmol/L (3.3-5.1); Sodium 133 mmol/L (135-145)
[2021-12-17 15:16] LABS: Influenza A Negative (Negative); Influenza B2 Negative (Negative)
[2021-12-17 15:34] LABS: Squamous Epithelial Cell Urine TRACE /LPF; WBC Urine 0 /HPF (0-4)
[2021-12-17] MEDS: 0.9 % Sodium Chloride 500 ML IV (16:56)
[2021-12-17] MEDS: Morphine Sulfate 4 MG/ML CARTRIDGE IVPUSH (17:15)
[2021-12-17] MEDS: iohexoL 350 MG/ML 100 ML INFUS..BTL IV (17:59)
[2021-12-17 19:51] VITALS: BP 140/98; PULSE 83; RESP 20; TEMP 36.1; O2SAT 98
== END 2021-12-17 20:18 | disposition home or self-care (01) ==
PROVIDERS: Emergency Provider Emergency Medicine; PCP Family Medicine
DX: N50.811 Right testicular pain (principal); N50.812 Left testicular pain; I10 Essential (primary) hypertension; E11.9 Type 2 diabetes mellitus without complications; J44.9 Chronic obstructive pulmonary disease, unspecified; J45.50 Severe persistent asthma, uncomplicated; Z20.822 Contact with and (suspected) exposure to COVID-19
CPT/HCPCS: 71045; 74177; 80048; 80076; 81001; 81003; 83605; 83735; 85025; 86140; 87040; 87502; 87635; 93975; 96361; 96374; 99284; 99285; J2270; Q9967

== ENCOUNTER → 2021-12-22 14:42 | Outpatient (BNVA) | payer OTHER, SELFPAY | PROVIDERS: PCP Family Medicine; Visit Provider Surgery Vascular Surgery | DX: M79.89 Other specified soft tissue disorders (principal); I83.11 Varicose veins of right lower extremity with inflammation | CPT/HCPCS: 99212 ==

== ENCOUNTER 2022-01-05 08:47 | Outpatient (REF) | payer OTHER, SELFPAY | END 2022-01-05 08:48 | disposition home or self-care (01) | LOC: HO.MRI 08:47 | PROVIDERS: Visit Provider Internal Medicine Gastroenterology | DX: Z13.89 Encounter for screening for other disorder (principal) ==

== ENCOUNTER 2022-01-19 07:29 | Outpatient (REF) | payer OTHER, SELFPAY ==
--- NOTE | ~2022-01-19 | US_ITS ---
EXAMINATION: BILATERAL LOWER EXTREMITY VENOUS ULTRASOUND (REFLUX EXAM) CLINICAL INDICATION: Bilateral lower extremity varicose veins. COMPARISON: Right lower extremity venous Doppler ultrasound on 07/05/2021. TECHNIQUE: Color-flow triplex imaging and compression Doppler was performed to evaluate both the deep and the superficial systems bilaterally. To evaluate the superficial system, the examination was performed in the upright position. Color-flow Doppler ultrasound and compression ultrasound were utilized. In addition, maneuvers were utilized to demonstrate reflux. FINDINGS: SUPERFICIAL ULTRASOUND WITH DOPPLER OF RIGHT LOWER EXTREMITY GREAT SAPHENOUS VEIN: Saphenofemoral junction: 0.5 cm Max diameter: 0.5 cm Min diameter: 0.3 cm Reflux: No evidence of reflux. Additional: The saphenous vein is occluded in the proximal and mid thigh. DUPLICATED MEDIAL GREAT SAPHENOUS VEIN: Max Diameter: 0.3 cm at the junction. Reflux: None. DUPLICATED LATERAL GREAT SAPHENOUS VEIN: Diameter: None imaged. Reflux: NA. SMALL SAPHENOUS VEIN: Proximal Calf: 0.2 cm Distal Calf: 0.2 cm Reflux: No evidence of reflux. VEIN OF GIACOMINI: None imaged. PERFORATORS: Location: [place] measuring 2 mm. Reflux: None. VARICOSITIES: Location: None imaged. Reflux: NA. DEEP VENOUS ULTRASOUND OF THE RIGHT LOWER EXTREMITY: Common Femoral Vein: Compressible, normal respiratory variation and augmented flow. Femoral Vein: Compressible, normal color-flow and augmentation. Popliteal Vein: Compressible, normal augmentation. Deep Reflux: There is no evidence of reflux in the deep system in either the common femoral vein or the popliteal vein. Sethi's Cyst: There is no evidence of a Sethi's cyst. SUPERFICIAL ULTRASOUND WITH DOPPLER OF LEFT LOWER EXTREMITY GREAT SAPHENOUS VEIN: Saphenofemoral junction: 0.8 cm Max diameter: 0.8 cm Min diameter: 0.2 cm Reflux: No evidence of reflux. Additional: The great saphenous vein is occluded at the mid thigh and above the knee. DUPLICATED MEDIAL GREAT SAPHENOUS VEIN: Max Diameter: None imaged. Reflux: NA. DUPLICATED LATERAL GREAT SAPHENOUS VEIN: Diameter: 0.4 cm at the junction. Reflux: There is reflux within the duplicated lateral great saphenous vein at the mid thigh up to 2.2 seconds. SMALL SAPHENOUS VEIN: Not visualized/not imaged. VEIN OF GIACOMINI: None imaged. PERFORATORS: Location: At knee measuring 2 mm. Reflux: None. VARICOSITIES: Location: Below knee measuring 3 mm. Reflux: None. DEEP VENOUS ULTRASOUND OF THE LEFT LOWER EXTREMITY: Common Femoral Vein: Compressible, normal respiratory variation and augmented flow. Femoral Vein: Compressible, normal color-flow and augmentation. Popliteal Vein: Compressible, normal augmentation. Deep Reflux: There is no evidence of reflux in the deep system in either the common femoral vein or the popliteal vein. Sethi's Cyst: There is no evidence of a Sethi's cyst. US/US venous duplex LE BI IMPRESSION: 1. Left, duplicated lateral great saphenous venous insufficiency. 2. The proximal, bilateral great saphenous veins are occluded consistent with prior treatment. 3. No refluxing varicosities identified greater than 3 mm. 4. No evidence of DVT or deep venous insufficiency.
== END 2022-01-19 07:30 | disposition home or self-care (01) ==
LOC: HO.US 07:29
PROVIDERS: Visit Provider Surgery Vascular Surgery
DX: I83.11 Varicose veins of right lower extremity with inflammation (principal)
CPT/HCPCS: 93970

== ENCOUNTER → 2022-01-26 13:55 | Outpatient (BNVA) | payer OTHER, SELFPAY | PROVIDERS: PCP Family Medicine; Visit Provider Surgery Vascular Surgery | DX: I83.11 Varicose veins of right lower extremity with inflammation (principal) | CPT/HCPCS: 99202 ==

== ENCOUNTER → 2022-02-21 13:54 | Outpatient (BNVA) | payer OTHER, SELFPAY | PROVIDERS: PCP Family Medicine; Visit Provider Urology | DX: E11.69 Type 2 diabetes mellitus with other specified complication (principal); N52.1 Erectile dysfunction due to diseases classified elsewhere; N50.819 Testicular pain, unspecified; R68.82 Decreased libido | CPT/HCPCS: 99202 ==

== ENCOUNTER 2022-03-02 08:09 | Outpatient (REF) | payer OTHER, SELFPAY ==
[2022-03-02 09:47] LABS: Prostate Specific Antigen 0.19 ng/mL (<0.05-4.0)
[2022-03-11 17:17] LABS: Testosterone, Free 4.6 pg/mL (35.0-155.0); Testosterone, Total 35 ng/dL (250-1100)
== END 2022-03-02 08:10 | disposition home or self-care (01) ==
LOC: HO.LAB 08:09
PROVIDERS: PCP Family Medicine; Visit Provider Urology
DX: E11.9 Type 2 diabetes mellitus without complications (principal); R68.82 Decreased libido; Z12.5 Encounter for screening for malignant neoplasm of prostate
CPT/HCPCS: 36415; 82947; 84153; 84402; 84403; 99202

== ENCOUNTER → 2022-03-03 09:16 | Outpatient (BNVA) | payer OTHER, SELFPAY | PROVIDERS: PCP Family Medicine; Visit Provider Dietitian, Registered | DX: E11.9 Type 2 diabetes mellitus without complications (principal); Z71.3 Dietary counseling and surveillance | CPT/HCPCS: 97802 ==

== ENCOUNTER → 2022-03-07 14:30 | Outpatient (BNVA) | payer OTHER, SELFPAY | PROVIDERS: PCP Family Medicine; Visit Provider Registered Nurse Diabetes Educator | DX: E11.65 Type 2 diabetes mellitus with hyperglycemia (principal) | CPT/HCPCS: 99211 ==

== ENCOUNTER → 2022-03-31 10:00 | Outpatient (BNVA) | payer OTHER, SELFPAY | PROVIDERS: PCP Family Medicine; Referring Provider Family Medicine; Visit Provider Internal Medicine Gastroenterology | DX: K83.8 Other specified diseases of biliary tract (principal); K75.81 Nonalcoholic steatohepatitis (NASH); E11.65 Type 2 diabetes mellitus with hyperglycemia | CPT/HCPCS: 99212 ==

== ENCOUNTER 2022-04-03 08:33 | Outpatient (REF) | payer OTHER, SELFPAY ==
[2022-04-03 09:00] LABS: MANUAL DIFF FLAG NO
[2022-04-03 09:18] LABS: Basophils Absolute Auto 0.1 X10*3/uL (0.0-0.2); Basophils Percent Auto 0.7 % (0-2); Eosinophils Absolute Auto 0.5 X10*3/uL (0.0-0.4); Eosinophils Percent Auto 3.9 % (0-4); Hematocrit 41.5 % (42.0-52.0); Hemoglobin 14.1 g/dl (14.0-18.0); Imm Gran Abs Auto 0.13 X10*3/uL (0.00-0.03); Imm Gran Pct Auto 1.1 % (0.0-0.4); Lymphocytes Absolute Auto 4.1 X10*3/uL (1.2-4.9); Lymphocytes Percent Auto 35.3 % (20-40); Mean Corpuscular Hemoglobin 31.8 pg (27.0-33.0); Mean Corpuscular Volume 93.7 fL (80.0-98.0); Mean Platelet Volume 11.3 fL (9.4-12.4); Monocytes Absolute Auto 0.7 X10*3/uL (0.1-1.2); Monocytes Percent Auto 6.2 % (2-11); Neutrophils Absolute Auto 6.1 x10*3/uL (2.0-8.3); Neutrophils Percent Auto 52.8 % (45-73); Platelet Count 234 X10*3/uL (160-400); Red Blood Count 4.43 X10*6/uL (4.60-5.80); Red Cell Distribution Width 13.1 % (11.0-16.0); White Blood Count 11.6 X10*3/uL (4.8-10.8)
[2022-04-03 09:27] LABS: INTERNATIONAL NORM RATIO 1.1 (0.9-1.1); Prothrombin Time 12.2 SEC (10.0-13.1)
[2022-04-03 09:56] LABS: Alanine Aminotransferase 74 U/L (0-40); Albumin Level 4.3 g/dL (3.5-5.0); Alkaline Phosphatase 133 U/L (39-117); Anion Gap 15 (12-20); Aspartate Amino Transferase 47 U/L (5-37); Bilirubin Total 0.4 mg/dL (0.0-1.0); Blood Urea Nitrogen 18 mg/dL (9-16); Calcium 9.5 mg/dL (8.4-10.2); Carbon Dioxide 26 mmol/L (22-29); Chloride 99 mmol/L (96-108); Cholesterol 213 mg/dL; Estimated Glomerular Filt Rate > 60; Glucose Random 280 mg/dL (60-115); HDL Cholesterol 28 mg/dL; Potassium 4.1 mmol/L (3.3-5.1); Sodium 136 mmol/L (135-145); Total Protein 7.6 g/dL (6.5-8.0); Triglycerides 468 mg/dL
[2022-04-03 10:16] LABS: Ferritin 222 ng/mL (20-250); Vitamin D 25-OH Total 15.8 ng/mL (>30)
[2022-04-03 11:06] LABS: Creatinine Urine 185.33 mg/dL; Microalbum/Creatinine Ratio Ur 5.9 ug/mg cr
[2022-04-07 17:26] LABS: Vitamin A 25 mcg/dL (38-98)
== END 2022-04-03 08:34 | disposition home or self-care (01) ==
LOC: HO.LAB 08:33
PROVIDERS: Internal Medicine Endocrinology, Diabetes & Metabolism; PCP Family Medicine; Visit Provider Internal Medicine Gastroenterology
DX: K83.8 Other specified diseases of biliary tract (principal); K75.81 Nonalcoholic steatohepatitis (NASH); E11.65 Type 2 diabetes mellitus with hyperglycemia
CPT/HCPCS: 36415; 80053; 80061; 82043; 82306; 82728; 84590; 85025; 85610

== ENCOUNTER → 2022-04-05 12:59 | Day surgery (SDC) | payer OTHER, SELFPAY ==
--- NOTE | 2022-04-04 10:18 | HO.ANESPROP2 ---
HPI - Anesthesia Eval Consult details Narrative: CX'd 04/05/22 for +Utox 52yo M for ERCP with Sphincterotomy, Upper Endoscopy *Multiple Med Allergies* Methadone daily h/o multiple intubations for status asthmaticus - See Preop Eval by pulmo in PMHx s/p periph nerve implant 09/2021 with MAC PMFSH Active Problems Active Problems: All Active Problems (Updated 02/21/22 @ 14:42 by Ishmael Gray MD) Low libido (Acute) Orchalgia (Acute) Erectile dysfunction associated with type 2 diabetes mellitus (Acute) Varicose veins of right lower extremity with inflammation (Acute) Dilated cbd, acquired (Acute) Pain of lower extremity (Acute) Elevated serum creatinine (Acute) Diabetes type 2, uncontrolled (Acute) Nasal congestion (Acute) Diabetes type 2, controlled (Acute) Constipation (Acute) CRPS (complex regional pain syndrome type I) (Acute) Nerve disorder (Acute) Diabetes mellitus (Acute) Acute kidney injury (Acute) Nausea (Acute) Pain of right lower extremity (Acute) Right foot infection (Acute) Achilles tendinosis (Acute) Sinusitis (Acute) Pre-op evaluation (Acute) Sciatica (Acute) Methadone use (Acute) HTN (hypertension) (Acute) History of kidney stones (Acute) Hiatal hernia (Acute) Hepatitis C (Acute) GERD (gastroesophageal reflux disease) (Acute) Dysphagia (Acute) COPD (chronic obstructive pulmonary disease) (Acute) Asthma (Acute) Arthritis (Acute) Anemia (Acute) Epigastric abdominal pain (Acute) Otitis externa (Acute) Internal and external bleeding hemorrhoids (Acute) Severe persistent asthma (Acute) Cellulitis (Acute) History of drug abuse (Acute) Past Medical History Medical History Deficient knowledge of leg surgery home care Family History Family History Father Diabetes Hypertension Mother Hypertension Family history of problems with anesthesia: No Surgical History Surgical History History of appendectomy History of colonoscopy History of hemorrhoidectomy History of laparoscopy Hx of endoscopy History of Problems with Anesthesia: No Social History Social History Housing: Apartment Are you a primary hospice home care coordinator to a significant other at home: No Do you presently have visiting nurse or other home services: No Alcohol intake: never Patient Tobacco Use Status: Never used Tobacco e-Cigarette/Vaping Use: Never Used Second Hand Smoke Exposure: No Use of substances other than those prescribed or required for medical reasons: Yes Substance Use Type: Opiates Substance Use Frequency: Occasionally Are you DNR?: No Advance Directives: No Advance Directives Information Provided: Yes service: No Current occupational status: unemployed Current occupational exposures/hazards: No Cognitive needs: No Hearing needs: No Vision needs: No Meds Allergies Allergy/AdvReac Type Severity Reaction Status Date / Time milk [MILK] Allergy Severe enterocolit Verified 03/31/22 10:25 is wheat [WHEAT] Allergy Intermediate enterocolit Verified 03/31/22 10:25 is amoxicillin [From AUGMENTIN] AdvReac Intermediate N/V Verified 03/31/22 10:25 clavulanic acid AdvReac Intermediate N/V Verified 03/31/22 10:25 [From AUGMENTIN] ibuprofen [From MOTRIN] AdvReac Mild ULCERS Verified 03/31/22 10:25 naproxen [NAPROXEN] AdvReac Mild ULCERS Verified 03/31/22 10:25 NSAIDS (Non-Steroidal AdvReac Unknown stomach Verified 03/31/22 10:25 Anti-Inflamma upset [NSAIDS] corn AdvReac Nausea and Verified 03/31/22 10:25 Vomiting oats AdvReac Abdominal Verified 03/31/22 10:25 Pain Home Medications Medication Instructions Recorded Confirmed Last Taken Type methadone 10 mg/mL oral concentrate 53 mg PO DAILY 08/31/20 10/31/21 09/21/21 History fluticasone propionate 50 spray intranasal 05/24/21 10/31/21 Unknown History mcg/actuation nasal spray,suspension ipratropium 20 mcg-albuterol 100 1 puff inhalation QID 09/13/21 10/31/21 Unknown History mcg/actuation mist for inhalation (Combivent Respimat) dulaglutide 0.75 mg/0.5 mL mg subcut 03/31/22 Unknown [facility] Exam Exam Date and Time: April 04, 2022 1018 Pertinent Lab Results Pertinent Lab Results: Laboratory Tests 04/03/22 04/03/22 08:58 08:58 WBC 11.6 H Hgb 14.1 Hct 41.5 L Plt Count 234 Sodium 136 Potassium 4.1 Chloride 99 Carbon Dioxide 26 BUN 18 H Creatinine 1.12 Assessment and Plan Assessment Anesthesia Assessment: Chart Reviewed Final Anesthetic Review Family History of Problems with Anesthesia: No History of Problems with Anesthesia: No
[2022-04-05 13:25] VITALS: BMI 36.0
[2022-04-05 13:29] LABS: Glucose, Whole Blood 190 mg/dL (60-115)
[2022-04-05 14:17] LABS: Amphetamine Screen Urine Not Detected (Not Detect); Barbiturates, Urine Not Detected (Not Detect); Benzodiazepines Screen Urine Not Detected (Not Detect); Cannabinoid Screen Urine Not Detected (Not Detect); Cocaine Screen Urine POSITIVE (Not Detect); Fentanyl, urine POSITIVE (Not Detect); Opiate Screen Urine Not Detected (Not Detect); Phencyclidine Screen Urine Not Detected (Not Detect)
--- NOTE | 2022-04-05 14:31 | PC.NURSE ---
U tox positive - patient cancelled per anesthesia, Dr Swift aware. Patient belongings returned & ride called.
== END ==
PROVIDERS: Nurse Practitioner; PCP Family Medicine; Visit Provider Internal Medicine Gastroenterology
DX: K83.8 Other specified diseases of biliary tract (principal); Z53.09 Procedure and treatment not carried out because of other contraindication; R79.9 Abnormal finding of blood chemistry, unspecified; E11.9 Type 2 diabetes mellitus without complications
CPT/HCPCS: 80307; 82947; J1610; Q9967

== ENCOUNTER → 2022-04-14 11:07 | Outpatient (BNVA) | payer OTHER, SELFPAY | PROVIDERS: PCP Family Medicine; Visit Provider Dietitian, Registered | DX: E11.9 Type 2 diabetes mellitus without complications (principal) | CPT/HCPCS: 97803 ==

== ENCOUNTER → 2022-04-20 10:37 | Outpatient (BNVA) | payer OTHER, SELFPAY | PROVIDERS: PCP Family Medicine; Visit Provider Registered Nurse Diabetes Educator | DX: E11.9 Type 2 diabetes mellitus without complications (principal); Z79.4 Long term (current) use of insulin; Z71.89 Other specified counseling | CPT/HCPCS: 99211 ==

== ENCOUNTER → 2022-05-04 12:25 | Outpatient (BNVA) | payer OTHER, SELFPAY | PROVIDERS: PCP Family Medicine; Visit Provider Registered Nurse Diabetes Educator | DX: E11.65 Type 2 diabetes mellitus with hyperglycemia (principal) | CPT/HCPCS: 99211 ==

== ENCOUNTER → 2022-05-10 09:36 | Day surgery (SDC) | payer OTHER, SELFPAY ==
[2022-04-28 08:49] VITALS: BMI 36.6
--- NOTE | 2022-05-09 08:55 | P.CONAN_ITS ---
Documented by User: Glory Tony NP 05/09/22 08:57 HPI - Anesthesia Eval Consult details Narrative: 52yo M for ERCP with Sphincterotomy, Upper Endoscopy *Multiple Med Allergies* Methadone daily h/o multiple intubations for status asthmaticus - See Preop Eval by shane in PMHx s/p periph nerve implant 09/2021 with MAC CX'd 04/05/22 for +Utox PMFSH Active Problems Active Problems: All Active Problems (Updated 04/28/22 @ 08:48 by Gillian Oro, PADDY) Epigastric abdominal pain (Acute) Otitis externa (Acute) Achilles tendinosis (Acute) Right foot infection (Acute) Pain of right lower extremity (Acute) Nausea (Acute) Acute kidney injury (Acute) Diabetes mellitus (Acute) Nerve disorder (Acute) CRPS (complex regional pain syndrome type I) (Acute) Constipation (Acute) Diabetes type 2, controlled (Acute) Nasal congestion (Acute) Diabetes type 2, uncontrolled (Acute) Elevated serum creatinine (Acute) Pain of lower extremity (Acute) Dilated cbd, acquired (Acute) Varicose veins of right lower extremity with inflammation (Acute) Erectile dysfunction associated with type 2 diabetes mellitus (Acute) Orchalgia (Acute) Low libido (Acute) Sinusitis (Acute) Pre-op evaluation (Acute) Sciatica (Acute) Methadone use (Acute) HTN (hypertension) (Acute) History of kidney stones (Acute) Hiatal hernia (Acute) Hepatitis C (Acute) GERD (gastroesophageal reflux disease) (Acute) Dysphagia (Acute) COPD (chronic obstructive pulmonary disease) (Acute) Asthma (Acute) Arthritis (Acute) Anemia (Acute) Internal and external bleeding hemorrhoids (Acute) Severe persistent asthma (Acute) Cellulitis (Acute) History of drug abuse (Acute) Past Medical History Medical History (Updated 04/28/22 @ 08:48 by Gillian Oro, PADDY) Anemia Arthritis Asthma Cellulitis Complex regional pain syndrome I COPD (chronic obstructive pulmonary disease) Deficient knowledge of leg surgery home care Diabetes Dysphagia GERD (gastroesophageal reflux disease) Hepatitis C Hiatal hernia History of drug abuse History of kidney stones HTN (hypertension) Internal and external bleeding hemorrhoids Methadone use Pre-op evaluation Sciatica Severe persistent asthma Sinusitis Family History Family History Father Diabetes Hypertension Mother Hypertension Family history of problems with anesthesia: No Surgical History Surgical History History of appendectomy History of colonoscopy History of hemorrhoidectomy History of laparoscopy Hx of endoscopy History of Problems with Anesthesia: No Social History Social History Housing: Apartment Are you a primary assistant child care teacher to a significant other at home: No Do you presently have visiting nurse or other home services: No Alcohol intake: never Patient Tobacco Use Status: Former Tobacco user Tobacco use type: Cigarette e-Cigarette/Vaping Use: Never Used Second Hand Smoke Exposure: No Use of substances other than those prescribed or required for medical reasons: Yes Substance Use Type: Opiates Are you DNR?: No Advance Directives: No Advance Directives Information Provided: Yes service: No Current occupational status: unemployed Current occupational exposures/hazards: No Cognitive needs: No Hearing needs: No Vision needs: No Meds Allergies Allergy/AdvReac Type Severity Reaction Status Date / Time milk [MILK] Allergy Severe enterocolit Verified 03/31/22 10:25 is wheat [WHEAT] Allergy Intermediate enterocolit Verified 03/31/22 10:25 is amoxicillin [From AUGMENTIN] AdvReac Intermediate N/V Verified 03/31/22 10:25 clavulanic acid AdvReac Intermediate N/V Verified 03/31/22 10:25 [From AUGMENTIN] corn AdvReac Mild Nausea and Verified 04/28/22 08:35 Vomiting ibuprofen [From MOTRIN] AdvReac Mild ULCERS Verified 03/31/22 10:25 naproxen [NAPROXEN] AdvReac Mild ULCERS Verified 03/31/22 10:25 NSAIDS (Non-Steroidal AdvReac Mild ULCERS Verified 04/28/22 08:35 Anti-Inflamma [NSAIDS] oats AdvReac Mild Abdominal Verified 04/28/22 08:35 Pain Home Medications Medication Instructions Recorded Confirmed Last Taken Type methadone 10 mg/mL oral concentrate 53 mg PO DAILY 08/31/20 10/31/21 09/21/21 History fluticasone propionate 50 spray intranasal 05/24/21 10/31/21 Unknown History mcg/actuation nasal spray,suspension ipratropium 20 mcg-albuterol 100 1 puff inhalation QID 09/13/21 10/31/21 Unknown History mcg/actuation mist for inhalation (Combivent Respimat) dulaglutide 0.75 mg/0.5 mL mg subcut 03/31/22 Unknown History subcutaneous pen injector (Trulicity) Exam Exam Date and Time: May 09, 2022 0855 Height,Weight and Vital Signs: Height 5 ft 7 in Weight 106.141 kg Pertinent Lab Results Pertinent Lab Results: Laboratory Tests 04/03/22 04/03/22 08:58 08:58 WBC 11.6 H Hgb 14.1 Hct 41.5 L Plt Count 234 Sodium 136 Potassium 4.1 Chloride 99 Carbon Dioxide 26 BUN 18 H Creatinine 1.12 Assessment and Plan Assessment Anesthesia Assessment: Chart Reviewed Final Anesthetic Review Family History of Problems with Anesthesia: No History of Problems with Anesthesia: No Documented by User: Shashi Deshpande MD 05/10/22 10:05 [facility] Past Medical History Medical History (Updated 04/28/22 @ 08:48 by Gillian Oro RN) Anemia Arthritis Asthma Cellulitis Complex regional pain syndrome I COPD (chronic obstructive pulmonary disease) Deficient knowledge of leg surgery home care Diabetes Dysphagia GERD (gastroesophageal reflux disease) Hepatitis C Hiatal hernia History of drug abuse History of kidney stones HTN (hypertension) Internal and external bleeding hemorrhoids Methadone use Pre-op evaluation Sciatica Severe persistent asthma Sinusitis Family History Family History Father Diabetes Hypertension Mother Hypertension Family history of problems with anesthesia: No Surgical History Surgical History History of appendectomy History of colonoscopy History of hemorrhoidectomy History of laparoscopy Hx of endoscopy History of Problems with Anesthesia: No Social History Social History Housing: Apartment Are you a primary assistant child care teacher to a significant other at home: No Do you presently have visiting nurse or other home services: No Alcohol intake: never Patient Tobacco Use Status: Former Tobacco user Tobacco use type: Cigarette e-Cigarette/Vaping Use: Never Used Second Hand Smoke Exposure: No Use of substances other than those prescribed or required for medical reasons: Yes Substance Use Type: Opiates Are you DNR?: No Advance Directives: No Advance Directives Information Provided: Yes service: No Current occupational status: unemployed Current occupational exposures/hazards: No Cognitive needs: No Hearing needs: No Vision needs: No Narrative Narrative: t Meds Allergies Allergy/AdvReac Type Severity Reaction Status Date / Time milk [MILK] Allergy Severe enterocolit Verified 03/31/22 10:25 is wheat [WHEAT] Allergy Intermediate enterocolit Verified 03/31/22 10:25 is amoxicillin [From AUGMENTIN] AdvReac Intermediate N/V Verified 03/31/22 10:25 clavulanic acid AdvReac Intermediate N/V Verified 03/31/22 10:25 [From AUGMENTIN] corn AdvReac Mild Nausea and Verified 04/28/22 08:35 Vomiting ibuprofen [From MOTRIN] AdvReac Mild ULCERS Verified 03/31/22 10:25 naproxen [NAPROXEN] AdvReac Mild ULCERS Verified 03/31/22 10:25 NSAIDS (Non-Steroidal AdvReac Mild ULCERS Verified 04/28/22 08:35 Anti-Inflamma [NSAIDS] oats AdvReac Mild Abdominal Verified 04/28/22 08:35 Pain Home Medications Medication Instructions Recorded Confirmed Last Taken Type methadone 10 mg/mL oral concentrate 53 mg PO DAILY 08/31/20 10/31/21 09/21/21 History fluticasone propionate 50 spray intranasal 05/24/21 10/31/21 Unknown History mcg/actuation nasal spray,suspension ipratropium 20 mcg-albuterol 100 1 puff inhalation QID 09/13/21 10/31/21 Unknown History mcg/actuation mist for inhalation (Combivent Respimat) dulaglutide 0.75 mg/0.5 mL mg subcut 03/31/22 Unknown History subcutaneous pen injector (Trulicity) Assessment and Plan Final Anesthetic Review Family History of Problems with Anesthesia: No History of Problems with Anesthesia: No
[2022-05-10 09:49] VITALS: BMI 34.8
[2022-05-10 09:50] LABS: Glucose, Whole Blood 288 mg/dL (60-115)
--- NOTE | 2022-05-10 09:58 | PC.NURSE ---
md arreola evaluating patient by bedside because of the n/v/d.
--- NOTE | 2022-05-10 10:06 | PC.NURSE ---
patient did nt want to have procedure performed. md arreola spoke to patient by the bedside and the patient still does not want to not go forward with the procedure.
== END ==
PROVIDERS: PCP Family Medicine; Visit Provider Internal Medicine Gastroenterology
DX: K83.1 Obstruction of bile duct (principal); Z53.20 Procedure and treatment not carried out because of patient's decision for unspecified reasons; E11.9 Type 2 diabetes mellitus without complications
CPT/HCPCS: 82947; J1610; Q9967

== ENCOUNTER → 2022-05-19 11:02 | Outpatient (BNVA) | payer OTHER, SELFPAY | PROVIDERS: PCP Family Medicine; Visit Provider Internal Medicine | DX: G56.40 Causalgia of unspecified upper limb (principal) | CPT/HCPCS: 99212 ==

== ENCOUNTER → 2022-05-24 14:05 | Outpatient (BNVA) | payer OTHER, SELFPAY | PROVIDERS: PCP Family Medicine; Visit Provider Registered Nurse Diabetes Educator | DX: E11.69 Type 2 diabetes mellitus with other specified complication (principal); N52.1 Erectile dysfunction due to diseases classified elsewhere | CPT/HCPCS: 99211 ==

== ENCOUNTER 2022-06-01 11:59 | Day surgery (SDC) | payer OTHER, SELFPAY ==
--- NOTE | 2022-05-31 13:18 | P.CONAN_ITS ---
Documented by User: Glory Tony NP 05/31/22 13:19 HPI - Anesthesia Eval Consult details Narrative: 52yo M for ERCP, Upper Endoscopy (prev cx'd for +Utox) *Multiple Med Allergies* Methadone daily h/o multiple intubations for status asthmaticus - See Preop Eval by pulmo in PMHx s/p periph nerve implant 09/2021 with MAC PMFSH Active Problems Active Problems: All Active Problems (Updated 05/31/22 @ 12:27 by Lita Quinn, PADDY) Epigastric abdominal pain (Acute) Otitis externa (Acute) Achilles tendinosis (Acute) Right foot infection (Acute) Pain of right lower extremity (Acute) Nausea (Acute) Acute kidney injury (Acute) Diabetes mellitus (Acute) Nerve disorder (Acute) CRPS (complex regional pain syndrome type I) (Acute) Constipation (Acute) Diabetes type 2, controlled (Acute) Nasal congestion (Acute) Diabetes type 2, uncontrolled (Acute) Elevated serum creatinine (Acute) Pain of lower extremity (Acute) Dilated cbd, acquired (Acute) Varicose veins of right lower extremity with inflammation (Acute) Erectile dysfunction associated with type 2 diabetes mellitus (Acute) Orchalgia (Acute) Low libido (Acute) Type II CRPS (complex regional pain syndrome) (Acute) Sinusitis (Acute) Pre-op evaluation (Acute) Sciatica (Acute) Methadone use (Acute) HTN (hypertension) (Acute) History of kidney stones (Acute) Hiatal hernia (Acute) Hepatitis C (Acute) GERD (gastroesophageal reflux disease) (Acute) Dysphagia (Acute) COPD (chronic obstructive pulmonary disease) (Acute) Asthma (Acute) Arthritis (Acute) Anemia (Acute) Internal and external bleeding hemorrhoids (Acute) Severe persistent asthma (Acute) Cellulitis (Acute) History of drug abuse (Acute) Past Medical History Medical History (Updated 05/31/22 @ 12:27 by Lita Quinn RN) Anemia Arthritis Cellulitis Complex regional pain syndrome I COPD (chronic obstructive pulmonary disease) Deficient knowledge of leg surgery home care Diabetes Dysphagia GERD (gastroesophageal reflux disease) Hepatitis C Hiatal hernia History of drug abuse History of kidney stones HTN (hypertension) Internal and external bleeding hemorrhoids Methadone use Pre-op evaluation Sciatica Severe persistent asthma Sinusitis Family History Family History Father Diabetes Hypertension Mother Hypertension Family history of problems with anesthesia: No Surgical History Surgical History History of appendectomy History of colonoscopy History of hemorrhoidectomy History of laparoscopy Hx of endoscopy History of Problems with Anesthesia: No Social History Social History Housing: Apartment Are you a primary director of critical care to a significant other at home: No Do you presently have visiting nurse or other home services: No Alcohol intake: never Patient Tobacco Use Status: Former Tobacco user Quit Date: 2009 Tobacco use type: Cigarette e-Cigarette/Vaping Use: Never Used Second Hand Smoke Exposure: No Use of substances other than those prescribed or required for medical reasons: Yes Substance Use Type: Opiates Substance Use Type Other:: last month ago Are you DNR?: No Advance Directives: No Advance Directives Information Provided: Yes service: No Current occupational status: unemployed Current occupational exposures/hazards: No Cognitive needs: No Hearing needs: No Vision needs: No Meds Allergies Allergy/AdvReac Type Severity Reaction Status Date / Time milk [MILK] Allergy Severe enterocolit Verified 05/19/22 11:10 is wheat [WHEAT] Allergy Intermediate enterocolit Verified 05/19/22 11:10 is amoxicillin [From AUGMENTIN] AdvReac Intermediate N/V Verified 05/19/22 11:10 clavulanic acid AdvReac Intermediate N/V Verified 05/19/22 11:10 [From AUGMENTIN] corn AdvReac Mild Nausea and Verified 05/19/22 11:10 Vomiting ibuprofen [From MOTRIN] AdvReac Mild ULCERS Verified 05/19/22 11:10 naproxen [NAPROXEN] AdvReac Mild ULCERS Verified 05/19/22 11:10 NSAIDS (Non-Steroidal AdvReac Mild ULCERS Verified 05/19/22 11:10 Anti-Inflamma [NSAIDS] oats AdvReac Mild Abdominal Verified 05/19/22 11:10 Pain Home Medications Medication Instructions Recorded Confirmed Last Taken Type methadone 10 mg/mL oral concentrate 53 mg PO DAILY 08/31/20 05/19/22 09/21/21 History Exam Exam Date and Time: May 31, 2022 1318 Pertinent Lab Results Pertinent Lab Results: Laboratory Tests 04/03/22 04/03/22 08:58 08:58 WBC 11.6 H Hgb 14.1 Hct 41.5 L Plt Count 234 Sodium 136 Potassium 4.1 Chloride 99 Carbon Dioxide 26 BUN 18 H Creatinine 1.12 Assessment and Plan Assessment Anesthesia Assessment: Chart Reviewed Final Anesthetic Review Family History of Problems with Anesthesia: No History of Problems with Anesthesia: No Documented by User: Harry Galvan MD 06/01/22 12:36 [facility] Past Medical History Medical History (Updated 05/31/22 @ 12:27 by Lita Quinn RN) Anemia Arthritis Cellulitis Complex regional pain syndrome I COPD (chronic obstructive pulmonary disease) Deficient knowledge of leg surgery home care Diabetes Dysphagia GERD (gastroesophageal reflux disease) Hepatitis C Hiatal hernia History of drug abuse History of kidney stones HTN (hypertension) Internal and external bleeding hemorrhoids Methadone use Pre-op evaluation Sciatica Severe persistent asthma Sinusitis Family History Family History Father Diabetes Hypertension Mother Hypertension Surgical History Surgical History History of appendectomy History of colonoscopy History of hemorrhoidectomy History of laparoscopy Hx of endoscopy Social History Social History Housing: Apartment Are you a primary director of critical care to a significant other at home: No Do you presently have visiting nurse or other home services: No Alcohol intake: never Patient Tobacco Use Status: Former Tobacco user Quit Date: 2009 Tobacco use type: Cigarette e-Cigarette/Vaping Use: Never Used Second Hand Smoke Exposure: No Use of substances other than those prescribed or required for medical reasons: Yes Substance Use Type: Opiates Substance Use Type Other:: last month ago Are you DNR?: No Advance Directives: No Advance Directives Information Provided: Yes service: No Current occupational status: unemployed Current occupational exposures/hazards: No Cognitive needs: No Hearing needs: No Vision needs: No Meds Allergies Allergy/AdvReac Type Severity Reaction Status Date / Time milk [MILK] Allergy Severe enterocolit Verified 05/19/22 11:10 is wheat [WHEAT] Allergy Intermediate enterocolit Verified 05/19/22 11:10 is amoxicillin [From AUGMENTIN] AdvReac Intermediate N/V Verified 05/19/22 11:10 clavulanic acid AdvReac Intermediate N/V Verified 05/19/22 11:10 [From AUGMENTIN] corn AdvReac Mild Nausea and Verified 05/19/22 11:10 Vomiting ibuprofen [From MOTRIN] AdvReac Mild ULCERS Verified 05/19/22 11:10 naproxen [NAPROXEN] AdvReac Mild ULCERS Verified 05/19/22 11:10 NSAIDS (Non-Steroidal AdvReac Mild ULCERS Verified 05/19/22 11:10 Anti-Inflamma [NSAIDS] oats AdvReac Mild Abdominal Verified 05/19/22 11:10 Pain Home Medications Medication Instructions Recorded Confirmed Last Taken Type methadone 10 mg/mL oral concentrate 53 mg PO DAILY 08/31/20 05/19/22 09/21/21 History Exam Airway Mallampati Class: III TM Dist: >3cm Neck ROM: Full Assessment and Plan Assessment Anesthesia Assessment: Anesthesia Plan Discussed Final Anesthetic Review NPO: Yes ASA Class: III Final Preanesthetic Review: No Changes in Pt Med Stat, Meds/Allgs Chart Reviewed, Consent Obtained/Reviewed and Anes Risks/Benef Reviewed Patient Risk: Intermediate Procedure Risk: Intermediate Anesthetic Plan Anesthetic Plan: GA Disposition: Standard PACU
[2022-06-01] VITALS (11 sets, daily range): BP systolic 126–163; BP diastolic 67–97; PULSE 69–90; RESP 12–18; TEMP 36.2–36.7; O2SAT 93–98; BMI 36.5
--- NOTE | ~2022-06-01 | FL_ITS ---
EXAMINATION: XR FLUOROSCOPY WITH IMAGES CLINICAL INFORMATION: ERCP COMPARISON: CT abdomen and pelvis with contrast 12/17/2021 TECHNIQUE: Fluoroscopy performed by Dr. Ellen Swift. Fluoroscopy time: 3.2 minutes. Cumulative Dose: 105.18 mGy. Images: 7. FINDINGS: There is distended common hepatic duct and common bile ducts similar to prior imaging. No visible intraluminal filling defect or stricture. Final image shows catheter or stent in position. FL/FL guidance in OR IMPRESSION: Fluoroscopy for GI procedure.
--- NOTE | 2022-06-01 12:37 | P.HPSUR_ITS ---
Pre-Procedural Eval Section A Date of Service: 06/01/22 Section B Chief Complaint: Obstruction of bile duct Relevant Family History (Specify if Yes): No Relevant Social History: Other (specify) (hx of cocaine use in past ) Present Medications: see Short Stay Collaborative assessment Medical History: Significant History (Anemia Arthritis Cellulitis Complex regional pain syndrome I COPD (chronic obstructive pulmonary disease) Deficient knowledge of leg surgery home care Diabetes Dysphagia GERD (gastroesophageal reflux disease) Hepatitis C Hiatal hernia History of drug abuse History of kidney stones HTN (hypertension)) History of Previous Operations: Relevant previous surgery/procedure and date(s) (History of appendectomy History of colonoscopy History of hemorrhoidectomy H istory of laparoscopy Hx of endoscopy) Allergies: Allergies Allergy/AdvReac Type Severity Reaction Status Date / Time milk [MILK] Allergy Severe enterocolit Verified 05/19/22 11:10 is wheat [WHEAT] Allergy Intermediate enterocolit Verified 05/19/22 11:10 is amoxicillin [From AUGMENTIN] AdvReac Intermediate N/V Verified 05/19/22 11:10 clavulanic acid AdvReac Intermediate N/V Verified 05/19/22 11:10 [From AUGMENTIN] corn AdvReac Mild Nausea and Verified 05/19/22 11:10 Vomiting ibuprofen [From MOTRIN] AdvReac Mild ULCERS Verified 05/19/22 11:10 naproxen [NAPROXEN] AdvReac Mild ULCERS Verified 05/19/22 11:10 NSAIDS (Non-Steroidal AdvReac Mild ULCERS Verified 05/19/22 11:10 Anti-Inflamma [NSAIDS] oats AdvReac Mild Abdominal Verified 05/19/22 11:10 Pain Review of Systems Sugical H&P ROS: Negative: Constitution, Cardiovascular, Respiratory, Neurological, Psychiatric, Hem-Onc, Allergic/Immunologic, Gastrointestinal, Genitourinary, Musculoskeletal, Integumentary, Endocrine and Eyes/Ears/Nose/Throat Exam Surgical H&P Exam: Normal: HEENT, Normal: Heart, Normal: Lungs, Normal: Extremities, Normal: Skin and Normal: Neurological and Significant Findings: Abdomen (tender epigastrium and RUQ) Plan Diagnosis/Plan: Unchanged I have reviewed the history and physical and performed a pertinent physical examination on my patient. No changes have occurred unless specified.
--- NOTE | 2022-06-01 12:37 | PC.NURSE ---
Per anesthesia Dr Galvan, patient does not need to complete Drug Urine Screen as previously ordered prior to proceeding with EGD/ERCP procedure. Order collected in computer system & cancelled in computer by Sravanthi Chowdhury. NO specimen collected or sent down.
[2022-06-01] MEDS: Lactated Ringers 1,000 ML 100 ML IVCONT (12:46)
--- NOTE | 2022-06-01 14:33 | W.PM.OPN ---
Operative Note Operative Note Date of Service: 06/01/22 Narrative: Description: Endoscopic retrograde cholangiopancreatography (ERCP), EGD PROCEDURE: Endoscopic retrograde cholangiopancreatography with sphincterotomy, pancreatic stent placement INDICATION FOR THE PROCEDURE: Patient with a history of chronic abdominal pain and imaging revealing CBD dilation MEDICATIONS: General anesthesia, rectal indomethacin 100 mg, cefotetan 2 g IV The risks of the procedure were made aware to the patient and consisted of medication reaction, bleeding, perforation, aspiration, and post ERCP pancreatitis. DESCRIPTION OF PROCEDURE: After informed consent and appropriate sedation, the duodenoscope was inserted into the oropharynx, down the esophagus, and into the stomach. The scope was then advanced through the pylorus to the ampulla. The ampulla had a markedly abnormal appearance and was bulbous and swollen. Using wire directed technique the ampulla was approached, wire went into PD several times, no contrast was injected. A kanika precut was done and then the tome was bowed and advanced again. This time the wire into the CBD> With cholangiogram performed which revealed dilated duct but no stone or stricture, mass. The contrast did not drain. A sphincterotomy was then done with extraction balloon then sweeped across the duct several times. A small piece of debris came out, and the bile was flowing freely. After this the PD was re accessed and a 3 Fr x 5 cm stent was placed. There was some minor oozing which had ceased by the end of the procedure. The stomach was then decompressed and the endoscope was withdrawn. An EGD scope was then passed, no ulcers or other lesions seen in stomach or esophagus. FINDINGS: 1. 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 NPO except ice chips for next 4-6 hrs then clears as tolerated, can advance diet tomorrow if feels well 2. if any worsening pain, nausea, vomiting, fever needs to come to ED ANY
[2022-06-01] MEDS: Lactated Ringers 1,000 ML 1000 ML IVCONT (15:09)
[2022-06-01 15:17] LABS: Glucose, Whole Blood 166 mg/dL (60-115)
[2022-06-01] MEDS: ondansetron HCL 4 MG/2 ML VIAL IVPUSH (16:32)
--- NOTE | 2022-06-01 16:46 | PC.NURSE ---
OOB to chair taking ice chips. nausea resolved. no dizziness of standing.
== END 2022-06-01 17:15 | disposition home or self-care (01) ==
PROVIDERS: PCP Family Medicine; Visit Provider Internal Medicine Gastroenterology
PROC: (CPT 43260; principal; 2022-06-01 13:40)
PROC: 0DJ08ZZ Inspection of Upper Intestinal Tract, Via Natural or Artificial Opening Endoscopic (ICD-10-PCS; CPT 43235; 2022-06-01 13:40)
DX: K83.8 Other specified diseases of biliary tract (principal); E11.65 Type 2 diabetes mellitus with hyperglycemia; K75.81 Nonalcoholic steatohepatitis (NASH); D64.9 Anemia, unspecified; J45.909 Unspecified asthma, uncomplicated; I10 Essential (primary) hypertension; B19.20 Unspecified viral hepatitis C without hepatic coma; M54.30 Sciatica, unspecified side; F11.90 Opioid use, unspecified, uncomplicated; G90.50 Complex regional pain syndrome I, unspecified; Z79.899 Other long term (current) drug therapy; Z88.1 Allergy status to other antibiotic agents; Z88.8 Allergy status to other drugs, medicaments and biological substances; Z87.891 Personal history of nicotine dependence
CPT/HCPCS: 43274; 43264; 82947; C1769; J0690; J1100; J2250; J2405; J3010; Q9967

== ENCOUNTER 2022-06-04 17:05 | Emergency (ER) | payer OTHER, SELFPAY ==
[2022-06-04 17:39] VITALS: BP 158/106; PULSE 100; RESP 20; TEMP 37.2; O2SAT 96; BMI 36.0
== END 2022-06-04 20:08 | disposition left against medical advice (07) ==
PROVIDERS: Emergency Provider Emergency Medicine
DX: R10.9 Unspecified abdominal pain (principal); R11.0 Nausea
CPT/HCPCS: 99281

== ENCOUNTER 2022-06-05 13:57 | Outpatient (REF) | payer OTHER, SELFPAY ==
--- NOTE | ~2022-06-05 | XR_ITS ---
EXAMINATION: XR CHEST CLINICAL INFORMATION: Epigastric pain COMPARISON: 12/17/2021 TECHNIQUE: 2 views of the chest were obtained. FINDINGS: The lungs are well expanded. There is no focal consolidation, edema, or effusion. No pneumothorax. The cardiomediastinal silhouette is within normal limits. No acute osseous abnormality. XR/XR chest 2V IMPRESSION: No acute pulmonary finding.
--- NOTE | ~2022-06-05 | XR_ITS ---
EXAMINATION: XR ABDOMEN KUB CLINICAL INDICATION: Epigastric pain COMPARISON: 12/17/2021 TECHNIQUE: AP view of the abdomen. FINDINGS: Normal bowel gas pattern. No dilated loops of bowel. Gas and stool throughout the colon with mild colonic stool burden. There is a stent identified in the central abdomen. This could be pancreatic duct. The lung bases are clear. No acute osseous abnormality. XR/XR abdomen 1V IMPRESSION: Normal bowel gas pattern.
[2022-06-05 15:48] LABS: MANUAL DIFF FLAG NO
[2022-06-05 16:18] LABS: Basophils Absolute Auto 0.1 X10*3/uL (0.0-0.2); Basophils Percent Auto 0.7 % (0-2); Eosinophils Absolute Auto 0.2 X10*3/uL (0.0-0.4); Eosinophils Percent Auto 1.5 % (0-4); Hematocrit 44.8 % (42.0-52.0); Hemoglobin 15.1 g/dl (14.0-18.0); Imm Gran Abs Auto 0.12 X10*3/uL (0.00-0.03); Imm Gran Pct Auto 0.9 % (0.0-0.4); Lymphocytes Absolute Auto 3.8 X10*3/uL (1.2-4.9); Lymphocytes Percent Auto 29.2 % (20-40); Mean Corpuscular HGB Conc 33.7 g/dl (31.0-36.0); Mean Corpuscular Hemoglobin 30.5 pg (27.0-33.0); Mean Corpuscular Volume 90.5 fL (80.0-98.0); Mean Platelet Volume 11.4 fL (9.4-12.4); Monocytes Absolute Auto 0.9 X10*3/uL (0.1-1.2); Neutrophils Absolute Auto 7.9 x10*3/uL (2.0-8.3); Neutrophils Percent Auto 60.7 % (45-73); Platelet Count 252 X10*3/uL (160-400); Red Blood Count 4.95 X10*6/uL (4.60-5.80); Red Cell Distribution Width 12.7 % (11.0-16.0)
[2022-06-05 16:47] LABS: Alanine Aminotransferase 54 U/L (0-40); Albumin Level 4.7 g/dL (3.5-5.0); Alkaline Phosphatase 141 U/L (39-117); Anion Gap 18 (12-20); Aspartate Amino Transferase 32 U/L (5-37); Bilirubin Total 0.2 mg/dL (0.0-1.0); Blood Urea Nitrogen 10 mg/dL (9-16); C Reactive Protein 1.61 mg/dL (< or = 0.50); Calcium 9.9 mg/dL (8.4-10.2); Carbon Dioxide 24 mmol/L (22-29); Chloride 100 mmol/L (96-108); Estimated Glomerular Filt Rate > 60; Glucose Random 271 mg/dL (60-115); Lipase 26 U/L (8-78); Potassium 4.1 mmol/L (3.3-5.1); Sodium 138 mmol/L (135-145)
[2022-06-05 17:06] LABS: Ferritin 319 ng/mL (20-250)
[2022-06-05 17:18] LABS: Folate 10.7 ng/mL (> or = 4.0); Vitamin B12 465 pg/mL (200-900)
[2022-06-08 16:56] LABS: Zinc 64 mcg/dL (60-130)
== END 2022-06-05 13:58 | disposition home or self-care (01) ==
LOC: HO.XRAY 13:57
PROVIDERS: PCP Family Medicine; Referring Provider Family Medicine; Visit Provider Internal Medicine Gastroenterology
DX: R10.13 Epigastric pain (principal); K75.81 Nonalcoholic steatohepatitis (NASH); R05.9 Cough, unspecified; E46 Unspecified protein-calorie malnutrition; R11.2 Nausea with vomiting, unspecified
CPT/HCPCS: 36415; 71046; 74018; 80053; 82607; 82728; 82746; 83690; 84630; 85025; 86140; 99212

== ENCOUNTER 2022-06-15 12:56 | Outpatient (REF) | payer OTHER, SELFPAY ==
--- NOTE | ~2022-06-15 | XR_ITS ---
EXAMINATION: XR ABDOMEN KUB CLINICAL INDICATION: Epigastric pain. COMPARISON: 06/05/2022 and 12/17/2021. TECHNIQUE: AP view of the abdomen. FINDINGS: There is moderate stool burden which is improved from previous study of 06/05/2022. There is again noted to be gaseous distended loop of sigmoid colon. No significantly dilated loops of bowel are appreciated. No pneumatosis intestinalis. Small caliber stent is seen overlying the mid right abdomen in an oblique projection which may lie within the pancreatic duct. No definite renal or ureteral calculi are appreciated. Phleboliths about the pelvis are seen. No significant bony abnormality appreciated. XR/XR KUB IMPRESSION: No evidence of ileus or obstruction.
== END 2022-06-15 12:57 | disposition home or self-care (01) ==
LOC: HO.XRAY 12:56
PROVIDERS: PCP Family Medicine; Visit Provider Internal Medicine Gastroenterology
DX: R10.13 Epigastric pain (principal); Z96.89 Presence of other specified functional implants
CPT/HCPCS: 74018

== ENCOUNTER 2022-06-20 09:32 | Day surgery (SDC) | payer OTHER, SELFPAY ==
[2022-06-20 09:44] VITALS: BMI 36.4
[2022-06-20 09:52] VITALS: BP 173/104; PULSE 105; RESP 18; TEMP 36.7; O2SAT 97
--- NOTE | 2022-06-20 09:53 | HO.ANESPROP2 ---
[facility] Active Problems Active Problems: All Active Problems (Updated 06/13/22 @ 19:30 by Ellen Swift MD) Presence of pancreatic duct stent (Acute) Malnutrition (Acute) Cough (Acute) Epigastric abdominal pain (Acute) Otitis externa (Acute) Achilles tendinosis (Acute) Right foot infection (Acute) Pain of right lower extremity (Acute) Nausea (Acute) Acute kidney injury (Acute) Diabetes mellitus (Acute) Nerve disorder (Acute) CRPS (complex regional pain syndrome type I) (Acute) Constipation (Acute) Diabetes type 2, controlled (Acute) Nasal congestion (Acute) Diabetes type 2, uncontrolled (Acute) Elevated serum creatinine (Acute) Pain of lower extremity (Acute) Dilated cbd, acquired (Acute) Varicose veins of right lower extremity with inflammation (Acute) Erectile dysfunction associated with type 2 diabetes mellitus (Acute) Orchalgia (Acute) Low libido (Acute) Type II CRPS (complex regional pain syndrome) (Acute) Sinusitis (Acute) Pre-op evaluation (Acute) Sciatica (Acute) Methadone use (Acute) HTN (hypertension) (Acute) History of kidney stones (Acute) Hiatal hernia (Acute) Hepatitis C (Acute) GERD (gastroesophageal reflux disease) (Acute) Dysphagia (Acute) COPD (chronic obstructive pulmonary disease) (Acute) Asthma (Acute) Arthritis (Acute) Anemia (Acute) Internal and external bleeding hemorrhoids (Acute) Severe persistent asthma (Acute) Cellulitis (Acute) History of drug abuse (Acute) Past Medical History Medical History Anemia Arthritis Cellulitis Complex regional pain syndrome I COPD (chronic obstructive pulmonary disease) Deficient knowledge of leg surgery home care Diabetes Dysphagia GERD (gastroesophageal reflux disease) Hepatitis C Hiatal hernia History of drug abuse History of kidney stones HTN (hypertension) Internal and external bleeding hemorrhoids Methadone use Pre-op evaluation Sciatica Severe persistent asthma Sinusitis Family History Family History Father Diabetes Hypertension Mother Hypertension Family history of problems with anesthesia: No Surgical History Surgical History History of appendectomy History of colonoscopy History of hemorrhoidectomy History of laparoscopy Hx of endoscopy History of Problems with Anesthesia: No Social History Social History Housing: Apartment Are you a primary adult care provider to a significant other at home: No Do you presently have visiting nurse or other home services: No Alcohol intake: never Patient Tobacco Use Status: Former Tobacco user Quit Date: 2009 Tobacco use type: Cigarette e-Cigarette/Vaping Use: Never Used Second Hand Smoke Exposure: No Use of substances other than those prescribed or required for medical reasons: Yes Substance Use Type: Opiates Are you DNR?: No Advance Directives: No Advance Directives Information Provided: Yes Advance Directives on File: No service: No Current occupational status: unemployed Current occupational exposures/hazards: No Cognitive needs: No Hearing needs: No Vision needs: No Meds Allergies Allergy/AdvReac Type Severity Reaction Status Date / Time milk [MILK] Allergy Severe enterocolit Verified 06/05/22 14:49 is wheat [WHEAT] Allergy Intermediate enterocolit Verified 06/05/22 14:49 is amoxicillin [From AUGMENTIN] AdvReac Intermediate N/V Verified 06/05/22 14:49 clavulanic acid AdvReac Intermediate N/V Verified 06/05/22 14:49 [From AUGMENTIN] corn AdvReac Mild Nausea and Verified 06/05/22 14:49 Vomiting ibuprofen [From MOTRIN] AdvReac Mild ULCERS Verified 06/05/22 14:49 naproxen [NAPROXEN] AdvReac Mild ULCERS Verified 06/05/22 14:49 NSAIDS (Non-Steroidal AdvReac Mild ULCERS Verified 06/05/22 14:49 Anti-Inflamma [NSAIDS] oats AdvReac Mild Abdominal Verified 06/05/22 14:49 Pain Home Medications Medication Instructions Recorded Confirmed Last Taken Type methadone 10 mg/mL oral concentrate 53 mg PO DAILY 08/31/20 05/19/22 09/21/21 History Exam Exam Date and Time: June 20, 2022 0953 Height,Weight and Vital Signs: Height 5 ft 7 in Weight 105.6 kg Last Vital Signs Temp 98.0 F 06/20/22 09:52 Pulse 105 H 06/20/22 09:52 Resp 18 06/20/22 09:52 BP 173/104 H 06/20/22 09:52 Pulse Ox 97 06/20/22 09:52 O2 Del Method 06/20/22 09:52 Airway Mallampati Class: II TM Dist: >3cm Neck ROM: Full Assessment and Plan Assessment Anesthesia Assessment: Anesthesia Plan Discussed and Chart Reviewed Final Anesthetic Review Family History of Problems with Anesthesia: No History of Problems with Anesthesia: No NPO: Yes ASA Class: III Final Preanesthetic Review: No Changes in Pt Med Stat, Meds/Allgs Chart Reviewed and Consent Obtained/Reviewed Patient Risk: Intermediate Procedure Risk: Low Anesthetic Plan Anesthetic Plan: MAC: Disposition: Standard PACU
--- NOTE | 2022-06-20 09:55 | PC.NURSE ---
Per anesthesia Dr Galvan, patient does not need to complete Drug Urine Screen as patient states has not used in couple months. Drug urine not collected. pt has dexcom reader to control blood sugar. POC 202 with dexcom, Dr. Galvan at bedside and do not need to retake POC with hosptial device. pt expressing anxiety and stated that he became too anxious last time that he left. Dr. Gavlan informed patient all consents need to be signed prior to pre medication.
--- NOTE | 2022-06-20 10:28 | MHC.SHP ---
Pre-Procedural Eval Section A Date of Service: 06/20/22 Section B Chief Complaint: stent removal Relevant Family History (Specify if Yes): No Relevant Social History: Other (specify) (substance abuse) Present Medications: see Short Stay Collaborative assessment Medical History: Significant History (Anemia Arthritis Cellulitis Complex regional pain syndrome I COPD (chronic obstructive pulmonary disease) Deficient knowledge of leg surgery home care Diabetes Dysphagia GERD (gastroesophageal reflux disease) Hepatitis C Hiatal hernia History of drug abuse History of kidney stones HTN (hypertension)) History of Previous Operations: Relevant previous surgery/procedure and date(s) (History of appendectomy History of colonoscopy History of hemorrhoidectomy History of laparoscopy Hx of endoscopy) Allergies: Allergies Allergy/AdvReac Type Severity Reaction Status Date / Time milk [MILK] Allergy Severe enterocolit Verified 06/05/22 14:49 is wheat [WHEAT] Allergy Intermediate enterocolit Verified 06/05/22 14:49 is amoxicillin [From AUGMENTIN] AdvReac Intermediate N/V Verified 06/05/22 14:49 clavulanic acid AdvReac Intermediate N/V Verified 06/05/22 14:49 [From AUGMENTIN] corn AdvReac Mild Nausea and Verified 06/05/22 14:49 Vomiting ibuprofen [From MOTRIN] AdvReac Mild ULCERS Verified 06/05/22 14:49 naproxen [NAPROXEN] AdvReac Mild ULCERS Verified 06/05/22 14:49 NSAIDS (Non-Steroidal AdvReac Mild ULCERS Verified 06/05/22 14:49 Anti-Inflamma [NSAIDS] oats AdvReac Mild Abdominal Verified 06/05/22 14:49 Pain Review of Systems Sugical H&P ROS: Negative: Constitution, Cardiovascular, Respiratory, Neurological, Psychiatric, Hem-Onc, Allergic/Immunologic, Gastrointestinal, Genitourinary, Musculoskeletal, Integumentary, Endocrine and Eyes/Ears/Nose/Throat Exam Surgical H&P Exam: Normal: HEENT, Normal: Heart, Normal: Lungs, Normal: Extremities, Normal: Abdomen, Normal: Skin and Normal: Neurological Plan Diagnosis/Plan: Unchanged I have reviewed the history and physical and performed a pertinent physical examination on my patient. No changes have occurred unless specified.
[2022-06-20] MEDS: Midazolam HCl/PF 2 MG/2 ML VIAL IVPUSH (10:33)
--- NOTE | 2022-06-20 11:44 | P.OP_ITS ---
Operative Note Operative Note Date of Service: 06/20/22 Narrative: Procedure Description: EGD Indication: stent removal and abdominal pain Anesthesia: MAC FLEXIBLE TRANSORAL UPPER GASTROINTESTINAL ENDOSCOPY UPPER ENDOSCOPY Consent: Indications for the procedure and potential complications of bleeding, perforation, reaction to medications and missed diagnosis were discussed with the patient and informed consent was obtained. Instrument: Olympus GIF H 190 J mid size upper endoscope Monitoring: Vital signs and clinical assessment, continuous EKG monitoring, Pulse oximetry, Carbon Dioxide monitoring and blood pressure monitoring were done throughout the procedure. Procedure: The patient was placed in the left lateral decubitis position and pre-procedure medications were administered and a bite block was placed. The endoscope was inserted into the mouth and advanced under direct vision to the third part of duodenum. A careful inspection was made as the upper endoscope was withdrawn including a retroflexed examination of the proximal stomach; Findings and interventions are described below. Findings: Larynx:normal Esophagus: GE junction at 43 cm, diaphragm hiatus at 43 cm, mild esophagitis. Stomach: Patchy gastric erythema. Biopsies were obtained. Grade 2 flap valve on retroflexed examination of the cardia. Duodenum: erosive duodenitis, bx taken, PD stent noted and removed with cold snare Intervention: Biopsies as noted above, stent removal Impression/Findings: stent removal erosive duodenitis esophagitis PLAN: make sure taking PPI, if taking then check if taking carafate, can add famoti dine as well
[2022-06-20 11:52] VITALS: BP 121/74; PULSE 100; RESP 17; TEMP 37.2; O2SAT 96
[2022-06-20 12:07] VITALS: BP 132/80; PULSE 85; RESP 16; TEMP 36.7; O2SAT 96
== END 2022-06-20 13:10 | disposition home or self-care (01) ==
PROVIDERS: PCP Internal Medicine Rheumatology; Visit Provider Internal Medicine Gastroenterology
PROC: 0DJ08ZZ Inspection of Upper Intestinal Tract, Via Natural or Artificial Opening Endoscopic (ICD-10-PCS; CPT 43235; principal; 2022-06-20 11:20)
DX: Z46.59 Encounter for fitting and adjustment of other gastrointestinal appliance and device (principal); Z96.89 Presence of other specified functional implants; K20.80 Other esophagitis without bleeding; K29.80 Duodenitis without bleeding; K44.9 Diaphragmatic hernia without obstruction or gangrene; I10 Essential (primary) hypertension; K21.9 Gastro-esophageal reflux disease without esophagitis; G90.50 Complex regional pain syndrome I, unspecified; F11.90 Opioid use, unspecified, uncomplicated; D64.9 Anemia, unspecified; J44.9 Chronic obstructive pulmonary disease, unspecified; E11.9 Type 2 diabetes mellitus without complications; B19.20 Unspecified viral hepatitis C without hepatic coma; J45.50 Severe persistent asthma, uncomplicated; Z87.891 Personal history of nicotine dependence; Z88.8 Allergy status to other drugs, medicaments and biological substances; Z88.1 Allergy status to other antibiotic agents
CPT/HCPCS: 43247; 43239; 88305; 88342; J2250

== ENCOUNTER → 2022-07-26 13:02 | Outpatient (BNVA) | payer OTHER, SELFPAY | PROVIDERS: PCP Internal Medicine Rheumatology; Visit Provider Internal Medicine Endocrinology, Diabetes & Metabolism | DX: E11.65 Type 2 diabetes mellitus with hyperglycemia (principal); Z79.4 Long term (current) use of insulin | CPT/HCPCS: 83036; 99212 ==

== ENCOUNTER 2022-08-03 14:07 | Outpatient (REF) | payer OTHER, SELFPAY ==
[2022-08-03 15:45] LABS: Free T4 (Free Thyroxine) 0.82 ng/dL (0.71-1.85); Thyroid Stimulating Hormone 2.57 uIU/mL (0.32-4.0)
== END 2022-08-03 14:08 | disposition home or self-care (01) ==
LOC: HO.LAB 14:07
PROVIDERS: PCP Family Medicine; Visit Provider Internal Medicine Endocrinology, Diabetes & Metabolism
DX: J44.9 Chronic obstructive pulmonary disease, unspecified (principal); J45.50 Severe persistent asthma, uncomplicated; K21.9 Gastro-esophageal reflux disease without esophagitis; J30.9 Allergic rhinitis, unspecified; E11.9 Type 2 diabetes mellitus without complications
CPT/HCPCS: 36415; 84439; 84443; 99212

== ENCOUNTER → 2022-08-04 11:24 | Outpatient (BNVA) | payer OTHER, SELFPAY | PROVIDERS: PCP Family Medicine; Visit Provider Internal Medicine Gastroenterology | DX: K59.00 Constipation, unspecified (principal); K75.81 Nonalcoholic steatohepatitis (NASH); Z23 Encounter for immunization | CPT/HCPCS: 90471; 90677; 99212 ==

== ENCOUNTER → 2022-08-17 13:43 | Outpatient (BNVA) | payer OTHER, SELFPAY | PROVIDERS: PCP Family Medicine; Visit Provider Registered Nurse Diabetes Educator | DX: E11.9 Type 2 diabetes mellitus without complications (principal) | CPT/HCPCS: 99211 ==

== ENCOUNTER → 2022-08-18 11:57 | Outpatient (BNVA) | payer OTHER, SELFPAY | PROVIDERS: PCP Family Medicine; Visit Provider Internal Medicine | DX: M54.16 Radiculopathy, lumbar region (principal) | CPT/HCPCS: Q3014 ==

== ENCOUNTER → 2022-09-01 11:13 | Outpatient (BNVA) | payer OTHER, SELFPAY | PROVIDERS: PCP Family Medicine; Visit Provider Registered Nurse Diabetes Educator | DX: E11.9 Type 2 diabetes mellitus without complications (principal) | CPT/HCPCS: 99211 ==

== ENCOUNTER 2022-10-23 08:37 | Outpatient (REF) | payer OTHER, SELFPAY ==
[2022-10-23 09:38] LABS: Anion Gap 14 (12-20); Blood Urea Nitrogen 19 mg/dL (9-16); Calcium 9.6 mg/dL (8.4-10.2); Carbon Dioxide 25 mmol/L (22-29); Chloride 104 mmol/L (96-108); Cholesterol 165 mg/dL; Estimated Glomerular Filt Rate > 60; Glucose Random 173 mg/dL (60-115); HDL Cholesterol 30 mg/dL; LDL Cholesterol Calculated 99 mg/dl; Sodium 139 mmol/L (135-145); Triglycerides 181 mg/dL
[2022-10-23 09:55] LABS: Free T4 (Free Thyroxine) 0.95 ng/dL (0.71-1.85); Thyroid Stimulating Hormone 4.95 uIU/mL (0.32-4.0)
== END 2022-10-23 08:38 | disposition home or self-care (01) ==
LOC: HO.LAB 08:37
PROVIDERS: PCP Family Medicine; Visit Provider Internal Medicine Endocrinology, Diabetes & Metabolism
DX: E11.65 Type 2 diabetes mellitus with hyperglycemia (principal)
CPT/HCPCS: 36415; 80048; 80061; 84439; 84443

== ENCOUNTER → 2022-10-24 11:34 | Outpatient (BNVA) | payer OTHER, SELFPAY | PROVIDERS: PCP Family Medicine; Visit Provider Internal Medicine Endocrinology, Diabetes & Metabolism | DX: E11.65 Type 2 diabetes mellitus with hyperglycemia (principal); Z79.4 Long term (current) use of insulin | CPT/HCPCS: 82947; 83036; 99212 ==

== ENCOUNTER 2022-10-25 15:42 | Outpatient (REF) | payer OTHER, SELFPAY ==
[2022-10-25 18:49] LABS: Free T4 (Free Thyroxine) 0.91 ng/dL (0.71-1.85); Thyroid Stimulating Hormone 1.64 uIU/mL (0.32-4.0)
[2022-10-28 01:29] LABS: Thyroid Peroxidase Antibodies 1 IU/mL (<9)
== END 2022-10-25 15:43 | disposition home or self-care (01) ==
LOC: HO.LAB 15:42
PROVIDERS: PCP Family Medicine; Visit Provider Internal Medicine Endocrinology, Diabetes & Metabolism
DX: E03.9 Hypothyroidism, unspecified (principal)
CPT/HCPCS: 36415; 84439; 84443; 86376

== ENCOUNTER → 2023-01-01 10:03 | Outpatient (BNVA) | payer OTHER, SELFPAY | PROVIDERS: PCP Nurse Practitioner Family; Visit Provider Internal Medicine | DX: M54.16 Radiculopathy, lumbar region (principal); M79.606 Pain in leg, unspecified; G56.40 Causalgia of unspecified upper limb; I83.11 Varicose veins of right lower extremity with inflammation | CPT/HCPCS: 99212 ==

== ENCOUNTER → 2023-01-22 10:56 | Outpatient (BNVA) | payer OTHER, SELFPAY | PROVIDERS: PCP Nurse Practitioner Family; Visit Provider Internal Medicine Gastroenterology | DX: K59.00 Constipation, unspecified (principal); K75.81 Nonalcoholic steatohepatitis (NASH); M25.552 Pain in left hip; F32.A Depression, unspecified | CPT/HCPCS: 99212 ==

== ENCOUNTER 2023-01-24 14:08 | Outpatient (REF) | payer OTHER, SELFPAY ==
--- NOTE | ~2023-01-24 | XR_ITS ---
EXAMINATION: XR PELVIS CLINICAL INFORMATION: Left pelvic and upper hip pain status post fall in May. COMPARISON: CT scan of 12/17/2021 TECHNIQUE: AP view of the pelvis. FINDINGS: There is no evidence of acute fracture or diastasis of the pelvis. Sacroiliac joints appear unremarkable. There is some narrowing with sclerosis involving the inferior left hip joint space. No acute fracture is appreciated on this single AP view. There is some mild sclerosis of the symphysis pubis. XR/XR pelvis 1-2V IMPRESSION: No evidence of acute fracture or diastasis of the pelvis. No definite hip fracture identified. Some degenerative narrowing of the inferior left hip joint space. Degenerative disc disease L5-S1.
== END 2023-01-24 14:09 | disposition home or self-care (01) ==
LOC: HO.XRAY 14:08
PROVIDERS: PCP Nurse Practitioner Family; Visit Provider Internal Medicine Gastroenterology
DX: M25.552 Pain in left hip (principal); F32.A Depression, unspecified
CPT/HCPCS: 72170

== ENCOUNTER → 2023-02-05 13:59 | Outpatient (BNVA) | payer OTHER, SELFPAY | PROVIDERS: PCP Nurse Practitioner Family; Visit Provider Hospitalist | DX: J45.50 Severe persistent asthma, uncomplicated (principal); J30.9 Allergic rhinitis, unspecified; K21.9 Gastro-esophageal reflux disease without esophagitis | CPT/HCPCS: 99212 ==

== ENCOUNTER → 2023-03-08 11:52 | Outpatient (BNVA) | payer OTHER, SELFPAY | PROVIDERS: PCP Nurse Practitioner Family; Visit Provider Orthopaedic Surgery | DX: M25.552 Pain in left hip (principal) | CPT/HCPCS: 99202 ==

== ENCOUNTER 2023-04-27 11:00 | Outpatient (AMB) | payer OTHER, SELFPAY ==
--- NOTE | 2023-04-27 11:12 | A.OFFVIS_ITS ---
Intake Vital Signs 04/27/23 11:16 Height 5 ft 7 in Weight 231 lb 7.766 oz BMI 36.3 Intake Visit Reasons: 4 week fu Intake Note: Kale presents in the office as a 4 week follow up. CC: He is having severe pains on the left side of his abdomen and still has issues with constipation. Sometimes the linAvanthas works and other days it does not. Last week he had the runs. 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 Required: No Allergies milk [MILK] Allergy (Severe, Verified 04/27/23 11:16) enterocolitis wheat [WHEAT] Allergy (Intermediate, Verified 04/27/23 11:16) enterocolitis amoxicillin [From AUGMENTIN] Adverse Reaction (Intermediate, Verified 04/27/23 11:16) N/V clavulanic acid [From AUGMENTIN] Adverse Reaction (Intermediate, Verified 04/27/23 11:16) N/V corn Adverse Reaction (Mild, Verified 04/27/23 11:16) Nausea and Vomiting ibuprofen [From MOTRIN] Adverse Reaction (Mild, Verified 04/27/23 11:16) ULCERS naproxen [NAPROXEN] Adverse Reaction (Mild, Verified 04/27/23 11:16) ULCERS NSAIDS (Non-Steroidal Anti-Inflamma [NSAIDS] Adverse Reaction (Mild, Verified 04/27/23 11:16) ULCERS oats Adverse Reaction (Mild, Verified 04/27/23 11:16) Abdominal Pain HPI 4 week fu HPI Details 53 yr old m here for f/u RECAP: ? His main complaint on initial presentation was epigastric pain, goes into the back like a stake ? going on for 2 yrs ? food makes pain worse, feels like gets stuck in epigastrium, ok with soup ? present daily ? comes and goes ? nausea and vomit which is food remnants, sometimes sees fresh blood ? has loose stools 2-3/week ? sometimes sees blood mixed with stool, going on for 2-3 yrs ? no grease in stool ? he does sniff heroin, 2-3 times a week on average ? no alcohol intake or other drugs ? he had colonoscopy 2010 and was pos for hemorrhoids ? had EGD same time, was normal per him ? never treated for hep c ? labs reviewed on [facility] ? CT imaging 03/2019- scarring noted in midline, some inguinal hernias, gastric distention. ? RAST with wheat and cow milk allergy, histamine mild elevated ? IgE- >1200 ? rechecked rast again and pos for oats and corn, dog dander ? did have egd/colonoscopy [facility] 2018 ? had felt 30-40% improved after avoiding allergens and medications ? he completed mavyret, ? f/u with pulmonology and allergy teams ? still on methadone ? commenced on biologic--dupixent ? Hep C PCR neg at 12 weeks, so cured ? EGD-- hiatal hernia 4 cm, esophagitis, savary dilation ? Cte-- no small bowel pathology or other obvious pathology ? GES-- 09/2019--normal, but actually rapid emptying ? capsule x 2 not able to visualize past the stomach even though GES nml ? He was given levsin and tigan due to persistent sx ? tigan had helped nausea, was awaiitng levsin ? still had ongoing sx with upper abdo pain, stabbing sensation, trouble swallowing solids sometimes, weight going up, appetite is good ? REPT EGD with VCE-- gastritis, VCE with possible chylous cyst at 1 hr 30 min but looked abn with protuberance and erythema, stippled appearance, uncertain if really polyp or submucosal nodule EGD done 06/2020--with dilation,? ridging of esophagus, gastritis ? HE was referred to [facility] and he was being followed up there, he had repeat EGD, colonoscopy, I don;t have results of bx ? he was pending a small bowel enteroscopy per the last note I saw but it seemed to have not been ordered so I ended up doing it at [facility] on 09/07/20 but it was negative with no masses or worrying lesions noted. 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 INTERIM: Ongoing worsening joint and hip pains. has been f/u with ortho, awaiting MRI for further assessment, using crutches to walk for last 1 yr he has issues with constipation, takes heroin once a week maybe for pain he is still on methadone, increased to 60 mg he is still taking trental 400 mg BID still taking linaclotide EXAM: GENERAL: The patient is well developed and nontoxic, obese VITAL SIGNS:see workflow HEENT: Nonicteric sclerae, PERRLA, EOMI. Oropharynx clear. Moist mucous membranes. Conjunctivae appear well perfused. No thyroid mass. CHEST: Chest wall is nontender. HEART: Regular rate and rhythm without murmurs. LUNGS: Clear to auscultation bilaterally. ABDOMEN: Soft, positive bowel sounds, tender ruq and lower abdo, no organomegaly, lap scar SKIN: dry skin NEUROLOGIC: Cranial nerves II-XII intact without motor/sensory deficit. MS:crutches, painful movement Assessment & Plan (1) Constipation, 2/2 to inactivity, abdominal positioning, heroin and methdone use, 2/ ZHANG wirh severe steatosis on MRI-cont trental 3/ left hip pain and weight bearing issues ? OA, ?bursitis doesnt seem referred from spine--seeing ortho PLAN: 1/ KUB 2/ add movantik again, hold on linaclotide, call me with update 3/ f/u ortho for hip ? ? [facility] Medical History Anemia Arthritis Cellulitis Chronic allergic rhinitis Complex regional pain syndrome I COPD (chronic obstructive pulmonary disease) Deficient knowledge of leg surgery home care Diabetes Dysphagia GERD (gastroesophageal reflux disease) Hepatitis C Hiatal hernia History of drug abuse History of kidney stones HTN (hypertension) Internal and external bleeding hemorrhoids Methadone use Pre-op evaluation Sciatica Severe persistent asthma Sinusitis Surgical History History of appendectomy History of colonoscopy History of common bile duct surgery History of hemorrhoidectomy History of laparoscopy Hx of endoscopy Family History Father Diabetes Hypertension Mother Hypertension Social History Housing: Apartment Are you a primary medical care administrator to a significant other at home: No Do you presently have visiting nurse or other home services: No Alcohol intake: never Patient Tobacco Use Status: Former Tobacco user Quit Date: 2009 Tobacco use type: Cigarette e-Cigarette/Vaping Use: Never Used Second Hand Smoke Exposure: No Substance Use Type: Opiates service: No Current occupational status: unemployed Current occupational exposures/hazards: No Cognitive needs: No Hearing needs: No Vision needs: No Physical Exam Vital Signs: BMI result Body Mass Index 36.3 Assessment & Plan Assessment & Plan (1) Chronic constipation: Code(s): K59.09 - Other constipation (2) Nonalcoholic steatohepatitis (ZHANG): Code(s): K75.81 - Nonalcoholic steatohepatitis (ZHANG) Orders: Orders XR KUB Today K59.09 - Other constipation Medications: New naloxegol (Movantik) must be taken on empty stomach; no food 1 hr after or 2-3 hrs before dose 25 mg PO QAM 30 tabs 2RF Refilled pentoxifylline ER must administer with a meal/food 400 mg PO TID 90 tabs 3RF ondansetron 4 mg PO Q8H 30 days 90 tabs 2RF Coding Level of Care Code Est Pt Level 3 (94124) Diagnoses Chronic constipation K59.09 Nonalcoholic steatohepatitis (ZHANG) K75.81
[2023-04-27 11:16] VITALS: BMI 36.3
== END 2023-04-27 12:02 | disposition home or self-care (01) ==
PROVIDERS: Visit Provider Internal Medicine Gastroenterology
DX: K59.09 Other constipation (principal); K75.81 Nonalcoholic steatohepatitis (NASH)
CPT/HCPCS: 99213

== ENCOUNTER 2023-04-27 11:00 | Outpatient (REF) | payer OTHER, SELFPAY ==
--- NOTE | ~2023-04-27 | XR_ITS ---
EXAMINATION: XR ABDOMEN KUB CLINICAL INDICATION: Constipation COMPARISON: 06/15/2022 and previous TECHNIQUE: AP views of the abdomen. FINDINGS: The bowel gas pattern appears within normal limits, without pathologic bowel dilatation. There is moderate stool scattered through the colon. No mass, organomegaly or suspicious calcification is appreciated. There is a lobulated pleural-based opacity in the lateral left lower thorax which, allowing for projectional differences, appears unchanged, associated with prominent pleural fat. XR/XR KUB IMPRESSION: No diagnostic abnormality is seen in the abdomen.
== END 2023-04-27 11:01 | disposition home or self-care (01) ==
LOC: HO.XRAY 11:00
PROVIDERS: Visit Provider Internal Medicine Gastroenterology
DX: E11.65 Type 2 diabetes mellitus with hyperglycemia (principal); K59.09 Other constipation; K75.81 Nonalcoholic steatohepatitis (NASH); Z79.4 Long term (current) use of insulin; Z79.899 Other long term (current) drug therapy
CPT/HCPCS: 74018; 82947; 83036; 99212

== ENCOUNTER 2023-04-27 12:55 | Outpatient (AMB) | payer OTHER, SELFPAY ==
[2023-04-27 12:57] VITALS: BP 134/78; PULSE 97; BMI 37.9
--- NOTE | 2023-04-27 12:57 | A.OFFVIS_ITS ---
Intake Vital Signs 04/27/23 12:57 Height 5 ft 7 in Weight 241 lb 13.553 oz BMI 37.9 BP 134/78 Blood Pressure Location Lt brachial Position Sitting Pulse 97 Pulse Source Pulse Oximeter Intake Visit Reasons: DM Intake Note: Patient presents today to follow up on Type 2 Diabetes Mellitus. Patient receives DME supplies through: Last Diabetic Eye exam:December 2022 Last Podiatry Visit: 2 years ago Random Glucose: 108 mg/dl HgA1C:6.7% Senior C Developer Required: No Accompanied by: Self / Same As Patient Allergies milk [MILK] Allergy (Severe, Verified 04/27/23 13:05) enterocolitis wheat [WHEAT] Allergy (Intermediate, Verified 04/27/23 13:05) enterocolitis amoxicillin [From AUGMENTIN] Adverse Reaction (Intermediate, Verified 04/27/23 13:05) N/V clavulanic acid [From AUGMENTIN] Adverse Reaction (Intermediate, Verified 04/27/23 13:05) N/V corn Adverse Reaction (Mild, Verified 04/27/23 13:05) Nausea and Vomiting ibuprofen [From MOTRIN] Adverse Reaction (Mild, Verified 04/27/23 13:05) ULCERS naproxen [NAPROXEN] Adverse Reaction (Mild, Verified 04/27/23 13:05) ULCERS NSAIDS (Non-Steroidal Anti-Inflamma [NSAIDS] Adverse Reaction (Mild, Verified 04/27/23 13:05) ULCERS oats Adverse Reaction (Mild, Verified 04/27/23 13:05) Abdominal Pain Medication List - Last Reconciled 04/27/23 by Sigifredo Molina MD albuterol sulfate 90 mcg/actuation 2 puffs PO Q6H PRN albuterol sulfate 2.5 mg (3 mL) inhalation Q6H PRN 30 days atorvastatin 20 mg PO BEDTIME bisacodyl (Fleet Bisacodyl) 10 mg (30 mL) [place] DAILY PRN 30 days blood sugar diagnostic (FreeStyle Lite Strips) As directed, to test blood sugar 4 times a day blood-glucose meter (FreeStyle Lite Meter kit) DX: E11.9, test blood sugar 2 times a day, duration 999 days cane Daily As directed. 999 days crutches (pair of crutches) As directed docusate sodium 100 mg PO BID Dupixent Pen (dupilumab) 300 mg (2 mL) subcut Q2W NS fluticasone propion-salmeterol 230-21 mcg/actuation (Advair HFA) 2 puffs inhalation Q12H 30 days insulin aspart U-100 (Novolog FlexPen U-100 Insulin aspart) 30 units in AM prior to breakfast and 20 uinits prior to lunch subcutaneously 3 times a day; 30 units in AM prior to breakfast and 20 uinits prior to lunch and dinner subcutaneously 3 times a day; insulin glargine (Lantus Solostar U-100 Insulin) 20 units (0.2 mL) subcut QAM ipratropium-albuterol 0.5 mg-3 mg(2.5 mg base)/3 mL 3 mL inhalation Q6H PRN lancets (FreeStyle Lancets) As directed lancets (FreeStyle Lancets) As directed bs checks 2-3 times per day lisinopril 10 mg PO DAILY 30 days methadone 53 mg PO DAILY miscellaneous medical supply quad cane small base montelukast 10 mg PO BEDTIME naloxegol (Movantik) 25 mg PO QAM nebulizers As directed ondansetron 4 mg PO Q8H 30 days peg-electrolyte soln 420 gram 240 mL PO Q10M pen needle, diabetic (Novofine 32) As directed injects 4 X/day pentoxifylline ER 400 mg PO TID 90 days polyethylene glycol 3350 (Miralax) 17 grams PO DAILY PRN vitamin A palmitate 10,000 units PO DAILY 60 days HPI HPI Comments History of Present Illness Details 52 YO M who is seen in consultation for T2DM at the request of PCP. Initially diagnosed with T2DM in 1 yr ago . Was initially started on treatment with metformin .could not tolerate GI issues Current regimen t Lantus 20 units Novolog 30 units befor breakfast and 20 units lunch and 20 units before dinner r James download shows he is using the James 34% of the time. Average glucose is 195 [id number]%. glucoses in target range 42% of time with 44% hyperglycemia and 14% very hyperglycemia and 0%hypoglycemia. pattern shows decreasing blood sugars overnight but increases, post lunch and post dinner Hypoglycemia once or twice a wk Family history of T2DM in father has Type 2 DM. Has eyes checked yearly, last eye exam 01/2023 , denies retinopathy. Has appt 10/31/2022 Denies neuropathy, last foot exam [], sees [id number] mos ago . Denies nephropathy, Not on FATIMAH/ARB. ? HLD, Not on statin. Denies CAD. Not Had diabetes education. Had bile duct flap placed in May 2022 [facility], [facility] Medical History Anemia Arthritis Cellulitis Chronic allergic rhinitis Complex regional pain syndrome I COPD (chronic obstructive pulmonary disease) Deficient knowledge of leg surgery home care Diabetes Dysphagia GERD (gastroesophageal reflux disease) Hepatitis C Hiatal hernia History of drug abuse History of kidney stones HTN (hypertension) Internal and external bleeding hemorrhoids Methadone use Pre-op evaluation Sciatica Severe persistent asthma Sinusitis Surgical History History of appendectomy History of colonoscopy History of common bile duct surgery History of hemorrhoidectomy History of laparoscopy Hx of endoscopy Family History Father Diabetes Hypertension Mother Hypertension Social History Housing: Apartment Are you a primary care program resident to a significant other at home: No Do you presently have visiting nurse or other home services: No Alcohol intake: never Patient Tobacco Use Status: Former Tobacco user Quit Date: 2009 Tobacco use type: Cigarette e-Cigarette/Vaping Use: Never Used Second Hand Smoke Exposure: No Substance Use Type: Opiates service: No Current occupational status: unemployed Current occupational exposures/hazards: No Cognitive needs: No Hearing needs: No Vision needs: No Physical Exam Vital Signs: Last Vital Signs Pulse 97 04/27/23 12:57 BP 134/78 04/27/23 12:57 BMI result Body Mass Index 37.9 Absence of Cushingoid features. Absence of acromegalic features. Neck exam reveals nl size thyroid about 15 gms. No thyroid nodules palpable. No carotid bruits present. Lungs CTA. Heart S1 S2, Reg R/R. No M/R/ G. Skin exam reveals absence of vitiligo or acanthosis nigricans. Abdominal exam reveals Soft NT/ND with NA BS. No organomegaly present. Neck Other: . Extrem Other: Visual exam of foot performed. No ulcerations or open lesions. No onchomycosis, no callouses.Pulses 2 + distally Sensation intact to monofilament exam. Vibratory sensation sensed is intact with 128 Hz tuning fork Results Reviewed Results Reviewed: 04/27/23 13:14 Glucose, Whole Blood Routine Laboratory Last Values Glucose (Clinic) 108 mg/dL (60-115) 04/27/23 13:14 Assessment & Plan Assessment & Plan (1) Diabetes mellitus: Code(s): E11.9 - Type 2 diabetes mellitus without complications (2) Diabetes type 2, controlled: Code(s): E11.9 - Type 2 diabetes mellitus without complications Plan: This is a 53-year-old male with a history of type 2 diabetes being treated without pharmacologic therapy with basal-bolus insulin with excellent improved glycemic control and no known microvascular or macrovascular complications Plan is to increase the Novolog to 36 units before breakfast and to 42 units if continued hyperglycemia Patient is not a candidate for G LP 1 considering biliary and pancreatic problems. I offered him Invokana or Jardiance but does not want to take a pill. He should follow-up with the nurses educator (3) Diabetes type 2, uncontrolled: Code(s): E11.65 - Type 2 diabetes mellitus with hyperglycemia Medications: Changed From insulin aspart U-100 (Novolog FlexPen U-100 Insulin aspart) 30 units in AM prior to breakfast and 20 uinits prior to lunch subcutaneously 3 times a day; 30 units in AM prior to breakfast and 20 uinits prior to lunch and dinner subcutaneously 3 times a day; 30 mL 4RF To insulin aspart U-100 (Novolog FlexPen U-100 Insulin aspart) 36 units in AM prior to breakfast and 20 uinits prior to lunch subcutaneously 3 times a day; 30 units in AM prior to breakfast and 20 uinits prior to lunch and dinner subcutaneously 3 times a day; 30 mL 4RF Refilled insulin aspart U-100 (Novolog FlexPen U-100 Insulin aspart) 30 units in AM prior to breakfast and 20 uinits prior to lunch subcutaneously 3 times a day; 30 units in AM prior to breakfast and 20 uinits prior to lunch and dinner subcutaneously 3 times a day; 30 mL 4RF insulin glargine (Lantus Solostar U-100 Insulin) 20 units (0.2 mL) subcut QAM 15 mL 4RF Coding Level of Care Code Est Pt Level 4 (37834) Diagnoses Diabetes mellitus E11.9 Diabetes type 2, controlled E11.9 Diabetes type 2, uncontrolled E11.65
[2023-04-27 13:18] LABS: Glucose, Whole Blood 108 mg/dL (60-115)
== END 2023-04-27 13:37 | disposition home or self-care (01) ==
PROVIDERS: PCP Nurse Practitioner Family; Visit Provider Internal Medicine Endocrinology, Diabetes & Metabolism
DX: E11.9 Type 2 diabetes mellitus without complications (principal); E11.65 Type 2 diabetes mellitus with hyperglycemia
CPT/HCPCS: 99214

== ENCOUNTER 2023-05-09 12:19 | Outpatient (AMB) | payer OTHER, SELFPAY ==
--- NOTE | 2023-05-09 12:47 | MHC.AMDMED ---
Intake Intake Visit Reasons: dm [employer] Manager Required: No Accompanied by: Self / Same As Patient Allergies milk [MILK] Allergy (Severe, Verified 04/27/23 13:05) enterocolitis wheat [WHEAT] Allergy (Intermediate, Verified 04/27/23 13:05) enterocolitis amoxicillin [From AUGMENTIN] Adverse Reaction (Intermediate, Verified 04/27/23 13:05) N/V clavulanic acid [From AUGMENTIN] Adverse Reaction (Intermediate, Verified 04/27/23 13:05) N/V corn Adverse Reaction (Mild, Verified 04/27/23 13:05) Nausea and Vomiting ibuprofen [From MOTRIN] Adverse Reaction (Mild, Verified 04/27/23 13:05) ULCERS naproxen [NAPROXEN] Adverse Reaction (Mild, Verified 04/27/23 13:05) ULCERS NSAIDS (Non-Steroidal Anti-Inflamma [NSAIDS] Adverse Reaction (Mild, Verified 04/27/23 13:05) ULCERS oats Adverse Reaction (Mild, Verified 04/27/23 13:05) Abdominal Pain HPI Comprehensive Diabetes Asmnt Most Recent Diabetes Results: No Data to Display [facility] Medical History Anemia Arthritis Cellulitis Chronic allergic rhinitis Complex regional pain syndrome I COPD (chronic obstructive pulmonary disease) Deficient knowledge of leg surgery home care Diabetes Dysphagia GERD (gastroesophageal reflux disease) Hepatitis C Hiatal hernia History of drug abuse History of kidney stones HTN (hypertension) Internal and external bleeding hemorrhoids Methadone use Pre-op evaluation Sciatica Severe persistent asthma Sinusitis Surgical History History of appendectomy History of colonoscopy History of common bile duct surgery History of hemorrhoidectomy History of laparoscopy Hx of endoscopy Family History Father Diabetes Hypertension Mother Hypertension Social History Housing: Apartment Are you a primary career developer to a significant other at home: No Do you presently have visiting nurse or other home services: No Alcohol intake: never Patient Tobacco Use Status: Former Tobacco user Quit Date: 2009 Tobacco use type: Cigarette e-Cigarette/Vaping Use: Never Used Second Hand Smoke Exposure: No Substance Use Type: Opiates service: No Current occupational status: unemployed Current occupational exposures/hazards: No Cognitive needs: No Hearing needs: No Vision needs: No Assessment & Plan Assessment & Plan (1) Diabetes type 2, controlled: Code(s): E11.9 - Type 2 diabetes mellitus without complications Plan: Personal Continuous Glucose Monitor: Patients CGM information reviewed Reviewed patient's sensor data: Hypoglycemia: 0% ? Hyperglycemia:? 49% Time in Range:? 51% Average glucose for the last 2 weeks?185 mg/dL Patient's last A1c on 04/27/2023 6.7% Recommended to patient to scan sensor at a minimum of 4 times a day, 4-[address] Molina increased patient's morning mealtime insulin to 36 units at last visit on 04/27. Patient is having postprandial hyperglycemia after breakfast, and still has not increased from 30-36 units Patient agreed at today's visit he will try NovoLog 36 units Reviewed with patient any time you increase insulin doses you increase your risk for hypoglycemia Reviewed with patient how to treat hypoglycemia with rule of 15s Recommended to patient he always carry hypoglycemic treatment with him, patient agreed with plan Reviewed how to interpret trend arrows Reminded patient that to check finger sticks if symptoms do not match sensor reading. Discussed lag time between finger stick and sensor data.? Patient able to insert sensor independently at home without issue.? Patient Instructions: Patient instruction: CGM provides information on blood glucose control throughout the day, including hyperglycemia and hypoglycemia. ? Continue to monitor blood glucose as instructed. Follow nutrition guidelines provided. Report any discomfort promptly to health care provider. ?Stay well-hydrated. You can bathe ,shower, swim and exerce while wearing the glucose sensor. Do not submerge glucose sensor in water for more than 30 minutes. Remove sensor for MRI or CAT scan. Avoid Xray machine in airports - remove sensor or request wand DIABETES PROBLEMS HOMECARE INSTRUCTIONS Hypo instructions ? When first signs of insulin reaction occur, immediately drink orange juice or cola, or suck on a sugar cube, but only if the person is conscious. ? Person with diabetes should continue taking insulin when ill, unless he/she is not able to eat.? Regularly check blood sugar or urine for sugar and acetone during illness. ? Exercise regularly. ? Pay special attention to the feet.? Avoid cuts, sores, blisters, ill-fitting shoes, or going barefoot.? Promptly treat injuries to the feet. ? Take medications as directed by physician. ? Drink extra water or noncaffeinated, nonsugared drinks to prevented hydration. Signs and symptoms of low blood sugar (happen quickly) Each person's reaction to low blood sugar is different. Learn your own signs and symptoms of when your blood sugar is low. Taking time to write these symptoms down may help you learn your own symptoms of when your blood sugar is low. From milder, more common indicators to most severe, signs and symptoms of low blood sugar include: Feeling shaky Being nervous or anxious Sweating, chills and clamminess Irritability or impatience Confusion Fast heartbeat Feeling lightheaded or dizzy Hunger Nausea Color draining from the skin (pallor) Feeling Sleepy Feeling weak or having no energy Blurred/impaired vision Tingling or numbness in the lips, tongue, or cheeks Headaches Coordination problems, clumsiness Hypoglycemia or blood glucose under 70 use the rule of 15's: If you have your blood glucose meter test your blood glucose, if you do not have your meter still follow below instruction: Keep quick-sugar foods with you at all times.? Take 15 grams of fast acting carbohydrates. Examples are 4 ounces of fruit juice or regular soda pop, 8 ounces fat-free milk, 1 tablespoon of table sugar, honey or corn syrup, jam, one miniature box of raisins, 7-8 gumdrops or Life Savers candy, 4 glucose tablets, and glucose gel.? Retest blood glucose in 15 minutes, if blood glucose is still under 70 ,repeat rule of 15's. If blood glucose is under 50, take 30 grams of fast acting carbohydrates If you are having hypoglycemia, or insulin reaction, more that a few times a week, call MD or dough puncher F/U BG check Coding Level of Care Code Est Pt Level 1 (84771) Diagnoses Diabetes type 2, controlled E11.9
== END 2023-05-09 13:43 | disposition home or self-care (01) ==
PROVIDERS: PCP Nurse Practitioner Family; Visit Provider Registered Nurse Diabetes Educator
DX: E11.9 Type 2 diabetes mellitus without complications (principal)

== ENCOUNTER → 2023-05-09 12:19 | Outpatient (BNVA) | payer OTHER, SELFPAY | PROVIDERS: PCP Nurse Practitioner Family; Visit Provider Registered Nurse Diabetes Educator | DX: E11.9 Type 2 diabetes mellitus without complications (principal) | CPT/HCPCS: 99211 ==

== ENCOUNTER 2023-05-11 14:03 | Outpatient (AMB) | payer OTHER, SELFPAY ==
[2023-05-11 14:10] VITALS: PULSE 90; O2SAT 97; BMI 37.6
--- NOTE | 2023-05-11 14:10 | A.OFFVIS_ITS ---
Intake Vital Signs 05/11/23 14:10 Height 5 ft 7 in Weight 240 lb BMI 37.6 Pulse 90 Pulse Source Pulse Oximeter Pulse Oximetry (%) 97 Oxygen Delivery Method Room Air Intake Visit Reasons: COPD Blankbook Forwarder Required: No Allergies milk [MILK] Allergy (Severe, Verified 05/11/23 14:11) enterocolitis wheat [WHEAT] Allergy (Intermediate, Verified 05/11/23 14:11) enterocolitis amoxicillin [From AUGMENTIN] Adverse Reaction (Intermediate, Verified 05/11/23 14:11) N/V clavulanic acid [From AUGMENTIN] Adverse Reaction (Intermediate, Verified 05/11/23 14:11) N/V corn Adverse Reaction (Mild, Verified 05/11/23 14:11) Nausea and Vomiting ibuprofen [From MOTRIN] Adverse Reaction (Mild, Verified 05/11/23 14:11) ULCERS naproxen [NAPROXEN] Adverse Reaction (Mild, Verified 05/11/23 14:11) ULCERS NSAIDS (Non-Steroidal Anti-Inflamma [NSAIDS] Adverse Reaction (Mild, Verified 05/11/23 14:11) ULCERS oats Adverse Reaction (Mild, Verified 05/11/23 14:11) Abdominal Pain HPI HPI Comments History of Present Illness Details The patient is a 53-year-old gentleman with severe persistent asthma. He he has had previous intubations in the past for status asthmaticus. More recently he has had multiple bouts of prednisone tapers for his significant persistent symptoms. The patient has been using his current respiratory medications with very good adherence. However, still requiring short-acting beta agonists several times a day. He also uses nebulizer. At this point the patient is failing outpatient therapy with uncontrolled asthma. Has significant wheezing on examination. Also has significant allergies. A previous blood work is IgE levels had been noted to be elevated and also had some degree of eosinophilia. More recently he was evaluated by Allergy. He will be following up with them soon. Therefore, we will continue awaiting their recommendations. He also had pulmonary function studies demonstrating severe obstruction consistent with severe uncontrolled asthma. We did evaluate his blood work demonstrating the elevations in his eosinophils. The patient also has elevations in his eosinophils. Based on these findings and is positive allergy testing the patient is a great candidate for biologic therapy with Dupixent. 07/16/2020 the patient is here for pulmonary follow-up visit. Overall he is feeling relatively well from her asthma standpoint. He has been able to wean down the prednisone down to 10 mg daily. He did develop cellulitis of the foot and had been taking antibiotics. Therefore he understands he needs to cut down the prednisone in order to feel further. He will try to cut down to half a tablet daily. In the meantime he does complaint of wheezing and shortness of breath moderate severity. He has not been using inhalers is to not very effective. The nebulized therapies have appear to be more helpful. I do believe that the rescue med device may be a good option for him. Therefore I will send that to the pharmacy. He is also complaining of another ear discomfort. Appears that his right ear has some inflammation in the external canal. The patient is also having issues with abdominal hernias. He will be following up with the surgeon and a CT scan to see if he needs surgery. Ultimately he has responded very well to the Dupixent. His asthma has been much better controlled on the biologic injection therapy. 11/04/2020 the patient is here for a preoperative evaluation. Overall the patient has been doing very good from a respiratory status. He has been off all prednisone. Patient is continue with Dupixent every 2 weeks. He is continue with respiratory therapy as prescribed with good adherence. He has not required his nebulized therapy. He has been having issues with his hemorrhoids and will undergo surgery tomorrow. However due to his respiratory condition a preop was requested. The patient has been feeling well. He does have some cough but is nonproductive intubated in nature. He has been able to walk and go up a lot of stairs without any difficulty. In the office he did to spirometry with an FEV1 to FVC of 61% and FEV1 of 56% predicted. This is consistent with moderate COPD. Overall lot better for him. At this point the patient is medically optimized from a respiratory status. In regards to a surgical standpoint due to his respiratory issues he would benefit from avoiding general anesthesia to minimize bronchospasms and difficulty with per status if possible. Either LMA or spinal would be appropriate. However, if the alternatives are not available I do believe that based on his current respiratory status and is optimize state the patient is able to tolerate general anesthesia. Due to his moderate obstruction the patient does have increased perioperative pulmonary complications which include, atelectasis, hypoxia prolonged mechanical ventilation and also pneumonia. Again, patient is medically optimized and may able to pursue with surgery and anesthesia. 05/11/2023 the patient has a pulmonary visit today. Overall he is doing better from a respiratory status. He continues to Dupixent every 2 weeks with very good response. He does continue to use his maintenance therapy which includes Singulair and Combivent. The patient has not required any prednisone. He does have some dyspnea on exertion mild in severity. Also has an intermittent cough. That typically is nonproductive in nature. Otherwise he is without any other respiratory complaints. [facility] Medical History Anemia Arthritis Cellulitis Chronic allergic rhinitis Complex regional pain syndrome I COPD (chronic obstructive pulmonary disease) Deficient knowledge of leg surgery home care Diabetes Dysphagia GERD (gastroesophageal reflux disease) Hepatitis C Hiatal hernia History of drug abuse History of kidney stones HTN (hypertension) Internal and external bleeding hemorrhoids Methadone use Pre-op evaluation Sciatica Severe persistent asthma Sinusitis Surgical History History of appendectomy History of colonoscopy History of common bile duct surgery History of hemorrhoidectomy History of laparoscopy Hx of endoscopy Family History Father Diabetes Hypertension Mother Hypertension Social History Housing: Apartment Are you a primary acute care clinical nurse specialist to a significant other at home: No Do you presently have visiting nurse or other home services: No Alcohol intake: never Patient Tobacco Use Status: Former Tobacco user Quit Date: 2009 Tobacco use type: Cigarette e-Cigarette/Vaping Use: Never Used Second Hand Smoke Exposure: No Substance Use Type: Opiates service: No Current occupational status: unemployed Current occupational exposures/hazards: No Cognitive needs: No Hearing needs: No Vision needs: No Review of Systems Const Denies chills and Denies fever(s) ENT Denies sinus pressure Card Denies chest pain Resp Denies change in phlegm color, Reports cough and Reports wheezing GI Denies change in bowel habits and Reports constipation Denies hematuria and Denies difficulty urinating Musc Reports abnormal gait, Denies back pain, Reports arthralgias, Reports joint swelling and Reports limited range of motion Neuro Reports abnormal gait, Denies focal weakness and Denies convulsions Psych Denies depression and Denies mood swings Irving/Lymph Denies lymphadenopathy Aller/Immun Reports wheezing Physical Exam Vital Signs: Last Vital Signs Pulse 90 05/11/23 14:10 Pulse Ox 97 05/11/23 14:10 Oxygen Delivery Method Room Air 05/11/23 14:10 BMI result Body Mass Index 37.6 Const General: alert Neck Neck: Yes normal visual inspection, Yes full ROM and Yes no lymphadenopathy Chest Chest palpation & inspection: normal inspection of the chest Resp Auscultation: wheezes and diminished lung sounds Cardio Rate: regular rate Rhythm: regular rhythm Heart sounds: S1 normal heart sound present and S2 normal heart sound present GI Palpation (GI): Soft to palpation and nontender Auscultation: normal bowel sounds Assessment & Plan Assessment & Plan (1) Asthma: Code(s): J45.909 - Unspecified asthma, uncomplicated Qualifiers: Asthma complication type: uncomplicated Asthma persistence: persistent Asthma severity: severe Qualified Code(s): J45.50 - Severe persistent asthma, uncomplicated (2) GERD (gastroesophageal reflux disease): Code(s): K21.9 - Gastro-esophageal reflux disease without esophagitis Qualifiers: Esophagitis presence: without esophagitis Qualified Code(s): K21.9 - Gastro-esophageal reflux disease without esophagitis (3) Chronic allergic rhinitis: Code(s): J30.9 - Allergic rhinitis, unspecified Plan continue Dupixent 300mg [id number] Continue allergy therapy: singulair and zyrtec continue Duonebs as needed continue Advair HFA 230/21 2 puff BID reflux diet allergy therapy f/U 6-8 months Medications: New prednisone PO daily; Take 6 tabs daily x 3 days, then 5 tabs x 3 days, then 4 tabs x 3 days, then 3 tabs x 3 days, then 2 tabs daily x 3 days, then 1 tab x 3 days to complete. 18 days 63 tabs 0RF Coding Level of Care Code Est Pt Level 4 (79158) Diagnoses Severe persistent asthma without complication J45.50 Asthma complication type: uncomplicated Asthma persistence: persistent Asthma severity: severe Gastroesophageal reflux disease without esophagitis K21.9 Esophagitis presence: without esophagitis Chronic allergic rhinitis J30.9 Time Spent (min) 17
== END 2023-05-11 14:38 | disposition home or self-care (01) ==
PROVIDERS: PCP Nurse Practitioner Family; Visit Provider Hospitalist
DX: J45.50 Severe persistent asthma, uncomplicated (principal); K21.9 Gastro-esophageal reflux disease without esophagitis; J30.9 Allergic rhinitis, unspecified
CPT/HCPCS: 99214

== ENCOUNTER → 2023-05-11 14:03 | Outpatient (BNVA) | payer OTHER, SELFPAY | PROVIDERS: PCP Nurse Practitioner Family; Visit Provider Hospitalist | DX: J45.50 Severe persistent asthma, uncomplicated (principal); J30.9 Allergic rhinitis, unspecified; K21.9 Gastro-esophageal reflux disease without esophagitis; Z79.899 Other long term (current) drug therapy | CPT/HCPCS: 99212 ==

== ENCOUNTER 2023-07-11 11:21 | Outpatient (AMB) | payer OTHER, SELFPAY ==
--- NOTE | 2023-07-11 11:33 | A.OFFVIS_ITS ---
Intake Vital Signs 3 07/11/23 11:34 Height 5 ft 7 in Weight 226 lb 4 oz BMI 35.4 BP 142/90 H Blood Pressure Location Lt brachial Position Sitting Respiration 18 Pulse 107 H Pulse Source Pulse Oximeter Pulse Oximetry (%) 95 Oxygen Delivery Method Room Air Intake Visit Reasons: (R) Leg Pain from Knee Down and (L) Hip Pain Allergies milk [MILK] Allergy (Severe, Verified 07/11/23 11:34) enterocolitis wheat [WHEAT] Allergy (Intermediate, Verified 07/11/23 11:34) enterocolitis amoxicillin [From AUGMENTIN] Adverse Reaction (Intermediate, Verified 07/11/23 11:34) N/V clavulanic acid [From AUGMENTIN] Adverse Reaction (Intermediate, Verified 07/11/23 11:34) N/V corn Adverse Reaction (Mild, Verified 07/11/23 11:34) Nausea and Vomiting ibuprofen [From MOTRIN] Adverse Reaction (Mild, Verified 07/11/23 11:34) ULCERS naproxen [NAPROXEN] Adverse Reaction (Mild, Verified 07/11/23 11:34) ULCERS NSAIDS (Non-Steroidal Anti-Inflamma [NSAIDS] Adverse Reaction (Mild, Verified 07/11/23 11:34) ULCERS oats Adverse Reaction (Mild, Verified 07/11/23 11:34) Abdominal Pain HPI HPI Comments 2 History of Present Illness0 Details Kale is a very pleasant 53-year-old male who presented to the office today for follow-up right lower extremity pain /numbness and left hip pain. Patient previously seen by Dr. Hernandez with diagnostic testing and most recently underwent a right saphenous nerve sprint with no improvement. He was then planned for a right femoral nerve sprint but states that he did not feel this would provide benefit of pain relief given the 1st sprint was unhelpful. He endorses pain from the right sarkar down to the foot with noticeable skin discoloration and hair loss. He does state that if he walks long distances the leg will swell. He had been evaluated by vascular and was told to wear compression socks. He has been working on weight loss to help with pain And diabetes but states it is difficult due to his limited mobility. Patient also complaining of left hip pain, he was evaluated by orthopedics in February but has yet to follow-up in their office. Prior: 52-year-old male presenting today for a follow-up of MRI results ? He reports swelling in his leg while walking. He has discoloration of the skin on his leg that started recently. He has tried using compressor stocking in the past. He has difficulty walking his dog and visiting the park with his daughter. He reports pain in his leg to the extent that his blood pressure reading starts elevating. He was recently diagnosed with diabetes mellitus. He has started gaining weight recently. He recently underwent an MRI of the lumbar spine without contrast. He no longer reports back pain. Pain is described mostly on the anterior sarkar and in the calf at the site of his previous surgery. He is not interested in any kind of spine intervention. [facility] Medical History Anemia Arthritis Cellulitis Chronic allergic rhinitis Complex regional pain syndrome I COPD (chronic obstructive pulmonary disease) Deficient knowledge of leg surgery home care Diabetes Dysphagia GERD (gastroesophageal reflux disease) Hepatitis C Hiatal hernia History of drug abuse History of kidney stones HTN (hypertension) Internal and external bleeding hemorrhoids Methadone use Pre-op evaluation Sciatica Severe persistent asthma Sinusitis Surgical History History of appendectomy History of colonoscopy History of common bile duct surgery History of hemorrhoidectomy History of laparoscopy Hx of endoscopy Family History Father Diabetes Hypertension Mother Hypertension Social History Housing: Apartment Are you a primary respiratory care faculty to a significant other at home: No Do you presently have visiting nurse or other home services: No Alcohol intake: never Patient Tobacco Use Status: Former Tobacco user Quit Date: 2009 Tobacco use type: Cigarette e-Cigarette/Vaping Use: Never Used Second Hand Smoke Exposure: No Substance Use Type: Opiates service: No Current occupational status: unemployed Current occupational exposures/hazards: No Cognitive needs: No Hearing needs: No Vision needs: No Review of Systems Const All systems reviewed & are unremarkable except as noted in HPI and below Physical Exam Vital Signs: Last Vital Signs Pulse 107 H 07/11/23 11:34 Resp 18 07/11/23 11:34 BP 142/90 H 07/11/23 11:34 Pulse Ox 95 07/11/23 11:34 Oxygen Delivery Method Room Air 07/11/23 11:34 BMI result Body Mass Index 35.4 General: awake, alert, oriented. Answers questions appropriately. Fully engaged in examination. Skin: warm, dry, intact HEENT: Normocephalic. Hearing intact. Cardiac: External chest normal in appearance. Respiratory: No cough, audible wheezing or stridor. Abdomen: without gross distension. MS: No obvious swelling or deformities. Able to transition from sit to stand unassisted. Ambulates with bilaterally normal heel strike and toe off RLE notable for discoloration in multiple areas, tenderness to palpation near healed surgical incision right medial calf, areas of hair loss Neurological: Oriented to person, place, time and situation. Thought process intact. No gait abnormalities appreciated. Psychiatric: Appropriate mood and affect. Good judgment and insight. Results Reviewed Results Reviewed: 12/22/22: MR LUMBAR SPINE WITHOUT CONTRAST. Assessment & Plan Assessment & Plan (1) Painful paresthesia: Code(s): R20.2 - Paresthesia of skin; R52 - Pain, unspecified (2) Left hip pain: Code(s): M25.552 - Pain in left hip (3) CRPS (complex regional pain syndrome type I): Code(s): G90.50 - Complex regional pain syndrome I, unspecified Plan Patient presented to the office today for follow-up of his right lower extremity pain / paresthesia and left hip pain.\ He was recently evaluated by Orthopedics for the left hip, but has not followed up in their office. He was advised to call ortho to schedule follow-up visit. Patient frustrated with continued right lower leg pain and paresthesia. This has been refractory to attempts at treatment with peripheral nerve stimulation. EMG ordered for further evaluation TENS unit ordered, pamphlet provided. Patient instructed on use. all questions and concerns were answered during the visit, patient agrees with plan. Follow-up in the office after EMG. Orders: Orders 2 NE electromyogram (EMG) Today R20.2 - Paresthesia of skin, R52 - Pain, unspecified Referrals 2 Medical Weight Management Referral E66.9 - Obesity, unspecified Coding Level of Care Code Est Pt Level 3 (32556) Diagnoses Painful paresthesia R20.2; R52 Left hip pain M25.552 CRPS (complex regional pain syndrome type I) G90.50
[2023-07-11 11:34] VITALS: BP 142/90; PULSE 107; RESP 18; O2SAT 95; BMI 35.4
== END 2023-07-11 12:14 | disposition home or self-care (01) ==
PROVIDERS: PCP Nurse Practitioner Family; Visit Provider Registered Nurse Emergency
DX: R20.2 Paresthesia of skin (principal); M25.552 Pain in left hip; G90.50 Complex regional pain syndrome I, unspecified
CPT/HCPCS: 99213

== ENCOUNTER → 2023-07-11 11:21 | Outpatient (BNVA) | payer OTHER, SELFPAY | PROVIDERS: PCP Nurse Practitioner Family; Visit Provider Registered Nurse Emergency | DX: M25.552 Pain in left hip (principal); G90.50 Complex regional pain syndrome I, unspecified; R20.2 Paresthesia of skin; R52 Pain, unspecified | CPT/HCPCS: 99212 ==

== ENCOUNTER 2023-08-17 11:21 | Outpatient (AMB) | payer OTHER, SELFPAY ==
[2023-08-17 11:29] VITALS: BP 200/110; PULSE 88; RESP 20; O2SAT 96; BMI 35.7
--- NOTE | 2023-08-17 11:29 | A.OFFVIS_ITS ---
Intake Vital Signs 3 08/17/23 11:29 Height 5 ft 7 in Weight 228 lb BMI 35.7 BP 200/110 H Blood Pressure Location Lt brachial Position Sitting Respiration 20 Pulse 88 Pulse Source Pulse Oximeter Pulse Oximetry (%) 96 Oxygen Delivery Method Room Air Intake Visit Reasons: Follow Up/Leg Pain Allergies milk [MILK] Allergy (Severe, Verified 08/17/23 11:30) enterocolitis wheat [WHEAT] Allergy (Intermediate, Verified 08/17/23 11:30) enterocolitis amoxicillin [From AUGMENTIN] Adverse Reaction (Intermediate, Verified 08/17/23 11:30) N/V clavulanic acid [From AUGMENTIN] Adverse Reaction (Intermediate, Verified 08/17/23 11:30) N/V corn Adverse Reaction (Mild, Verified 08/17/23 11:30) Nausea and Vomiting ibuprofen [From MOTRIN] Adverse Reaction (Mild, Verified 08/17/23 11:30) ULCERS naproxen [NAPROXEN] Adverse Reaction (Mild, Verified 08/17/23 11:30) ULCERS NSAIDS (Non-Steroidal Anti-Inflamma [NSAIDS] Adverse Reaction (Mild, Verified 08/17/23 11:30) ULCERS oats Adverse Reaction (Mild, Verified 08/17/23 11:30) Abdominal Pain HPI HPI Comments 2 History of Present Illness0 Details Patient presents back to the office today for follow-up. He reports the toilet since last visit his pain remains 10/10. Reports that secondary to the pain in his leg and his left hip being weak and giving out he has fallen several times. He uses a cane for ambulation, he has a walker at home but states that he will not use it because his ?pride gets in the way ?. Patient denies new red flag symptoms including loss of bowel, bladder or saddle anesthesia. EMG was ordered at last visit, that is scheduled for next week. Today patient's blood pressure is elevated, he reports that he has a point was PCP on Sunday. He states that he called them over a month ago to get a refill on his blood pressure medication but they told him he needed an appointment. Review of the computer shows a refill was sent in July 23, patient states he has not filled that medication. He was unaware that they had sent in a prescription for him. He denies chest pain, shortness of breath, dizziness, headache, palpitations. Prior: Kale is a very pleasant 53-year-old male who presented to the office today for follow-up right lower extremity pain /numbness and left hip pain. Patient previously seen by Dr. Hernandez with diagnostic testing and most recently underwent a right saphenous nerve sprint with no improvement. He was then planned for a right femoral nerve sprint but states that he did not feel this would provide benefit of pain relief given the 1st sprint was unhelpful. He endorses pain from the right sarkar down to the foot with noticeable skin discoloration and hair loss. He does state that if he walks long distances the leg will swell. He had been evaluated by vascular and was told to wear compression socks. He has been working on weight loss to help with pain And diabetes but states it is difficult due to his limited mobility. Patient also complaining of left hip pain, he was evaluated by orthopedics in February but has yet to follow-up in their office. Prior: 52-year-old male presenting today for a follow-up of MRI results ? He reports swelling in his leg while walking. He has discoloration of the skin on his leg that started recently. He has tried using compressor stocking in the past. He has difficulty walking his dog and visiting the park with his daughter. He reports pain in his leg to the extent that his blood pressure reading starts elevating. He was recently diagnosed with diabetes mellitus. He has started gaining weight recently. He recently underwent an MRI of the lumbar spine without contrast. He no longer reports back pain. Pain is described mostly on the anterior sarkar and in the calf at the site of his previous surgery. He is not interested in any kind of spine intervention. [facility] Medical History Anemia Arthritis Cellulitis Chronic allergic rhinitis Complex regional pain syndrome I COPD (chronic obstructive pulmonary disease) Deficient knowledge of leg surgery home care Diabetes Dysphagia GERD (gastroesophageal reflux disease) Hepatitis C Hiatal hernia History of drug abuse History of kidney stones HTN (hypertension) Internal and external bleeding hemorrhoids Methadone use Pre-op evaluation Sciatica Severe persistent asthma Sinusitis Surgical History History of appendectomy History of colonoscopy History of common bile duct surgery History of hemorrhoidectomy History of laparoscopy Hx of endoscopy Family History Father Diabetes Hypertension Mother Hypertension Social History Housing: Apartment Are you a primary career development facilitator to a significant other at home: No Do you presently have visiting nurse or other home services: No Alcohol intake: never Comment: cramping, relieved partially after using bathroom Patient Tobacco Use Status: Former Tobacco user Quit Date: 2009 Tobacco use type: Cigarette e-Cigarette/Vaping Use: Never Used Second Hand Smoke Exposure: No Substance Use Type: Opiates service: No Current occupational status: unemployed Current occupational exposures/hazards: No Cognitive needs: No Hearing needs: No Vision needs: No Review of Systems Const All systems reviewed & are unremarkable except as noted in HPI and below Physical Exam General: awake, alert, oriented. Answers questions appropriately. Fully engaged in examination. Skin: warm, dry, intact HEENT: Normocephalic. Hearing intact. Cardiac: External chest normal in appearance. Respiratory: No cough, audible wheezing or stridor. Abdomen: without gross distension. MS: No obvious swelling or deformities. Able to transition from sit to stand unassisted. Ambulates with bilaterally normal heel strike and toe off RLE notable for discoloration in multiple areas, tenderness to palpation near healed surgical incision right medial calf, areas of hair loss Neurological: Oriented to person, place, time and situation. Thought process intact. No gait abnormalities appreciated. Psychiatric: Appropriate mood and affect. Good judgment and insight. Results Reviewed Results Reviewed: 12/22/22: MR LUMBAR SPINE WITHOUT CONTRAST. Assessment & Plan Assessment & Plan (1) Left hip pain: Code(s): M25.552 - Pain in left hip (2) Lumbar radicular pain: Code(s): M54.16 - Radiculopathy, lumbar region (3) Pain of right lower extremity: Code(s): M79.604 - Pain in right leg (4) CRPS (complex regional pain syndrome type I): Code(s): G90.50 - Complex regional pain syndrome I, unspecified (5) Nerve disorder: Code(s): G58.9 - Mononeuropathy, unspecified (6) Pain of lower extremity: Code(s): M79.606 - Pain in leg, unspecified (7) Falls frequently: Code(s): R29.6 - Repeated falls (8) Painful paresthesia: Code(s): R20.2 - Paresthesia of skin; R52 - Pain, unspecified Plan Patient presented to the office today for follow-up. Continue with plan for EMG next week. Patient was advised to follow-up with ortho for his continued hip pain. Referral placed for massage therapy and acupuncture per patient request. He was given a requisition to take to the [facility] the center. Order placed for PT eval and treat to assist with pain, mobility, function and strength due to patient reported continued pain, unsteadiness on his feet and recent falls. Discussed options for treatment, patient was offered Sprint peripheral nerve stimulator with femoral nerve placement. Patient is unsure if he wants to proceed with this at this time given the unsatisfactory results of the previous saphenous nerve Sprint. Patient will discuss with his family and call the office to let us know when and if he wants to proceed. Order faxed to the pharmacy for crutches, patient declines using walker and continues to fall with the use of a cane. All questions and concerns were answered during the visit, patient agrees with plan. Follow-up in the office after EMG. Orders: Orders 2 PT Evaluation and Treatment Today G58.9 - Mononeuropathy, unspecified, G90.50 - Complex regional pain syndrome I, unspecified, M54.16 - Radiculopathy, lumbar region, M79.604 - Pain in right leg, M79.606 - Pain in leg, unspecified, R29.6 - Repeated falls Referrals 2 Massage Therapy Referral G58.9 - Mononeuropathy, unspecified, G90.50 - Complex regional pain syndrome I, unspecified, M25.552 - Pain in left hip, M54.16 - Radiculopathy, lumbar region, M79.604 - Pain in right leg, M79.606 - Pain in leg, unspecified Medications: New 2 crutches (pair of crutches) As directed 1 ea 0RF G90.50 - Complex regional pain syndrome I, unspecified, M25.552 - Pain in left hip, M79.604 - Pain in right leg, R29.6 - Repeated falls Coding Level of Care Code Est Pt Level 3 (91875) Diagnoses Left hip pain M25.552 Lumbar radicular pain M54.16 Pain of right lower extremity M79.604 CRPS (complex regional pain syndrome type I) G90.50 Nerve disorder G58.9 Pain of lower extremity M79.606 Falls frequently R29.6 Painful paresthesia R20.2; R52
== END 2023-08-17 12:15 | disposition home or self-care (01) ==
PROVIDERS: PCP Nurse Practitioner Family; Visit Provider Registered Nurse Emergency
DX: M25.552 Pain in left hip (principal); M54.16 Radiculopathy, lumbar region; M79.604 Pain in right leg; G90.50 Complex regional pain syndrome I, unspecified; G58.9 Mononeuropathy, unspecified; M79.606 Pain in leg, unspecified; R29.6 Repeated falls; R20.2 Paresthesia of skin; R52 Pain, unspecified
CPT/HCPCS: 99213

== ENCOUNTER → 2023-08-17 11:21 | Outpatient (BNVA) | payer OTHER, SELFPAY | PROVIDERS: PCP Nurse Practitioner Family; Visit Provider Registered Nurse Emergency | DX: M25.552 Pain in left hip (principal); M79.661 Pain in right lower leg; M54.16 Radiculopathy, lumbar region; M79.604 Pain in right leg; G90.50 Complex regional pain syndrome I, unspecified; G58.9 Mononeuropathy, unspecified; R29.6 Repeated falls; R20.2 Paresthesia of skin; R52 Pain, unspecified | CPT/HCPCS: 99212 ==

== ENCOUNTER 2023-08-20 16:23 | Outpatient (AMB) | payer OTHER, SELFPAY ==
[2023-08-20 16:34] VITALS: BP 158/94; PULSE 91; RESP 13; TEMP 36.6; O2SAT 98; BMI 35.9
--- NOTE | 2023-08-20 16:34 | A.OFFPC_ITS ---
Vital Signs 08/20/23 16:34 08/20/23 16:58 Height 5 ft 7 in Weight 229 lb BMI 35.9 BP 158/94 H 150/90 H Blood Pressure Location Rt brachial Rt brachial Position Sitting Sitting Respiration 13 Pulse 91 Pulse Source Pulse Oximeter Temp 97.8 F Temp Source Temporal Artery Scan Pulse Oximetry (%) 98 Oxygen Delivery Method Room Air Intake Visit Reasons: F/u htn + diabetes Nursing Surgical Services Director Required: No Accompanied by: Self / Same As Patient Allergies milk [MILK] Allergy (Severe, Verified 08/20/23 16:54) enterocolitis wheat [WHEAT] Allergy (Intermediate, Verified 08/20/23 16:54) enterocolitis amoxicillin [From AUGMENTIN] Adverse Reaction (Intermediate, Verified 08/20/23 16:54) N/V clavulanic acid [From AUGMENTIN] Adverse Reaction (Intermediate, Verified 08/20/23 16:54) N/V corn Adverse Reaction (Mild, Verified 08/20/23 16:54) Nausea and Vomiting ibuprofen [From MOTRIN] Adverse Reaction (Mild, Verified 08/20/23 16:54) ULCERS naproxen [NAPROXEN] Adverse Reaction (Mild, Verified 08/20/23 16:54) ULCERS NSAIDS (Non-Steroidal Anti-Inflamma [NSAIDS] Adverse Reaction (Mild, Verified 08/20/23 16:54) ULCERS oats Adverse Reaction (Mild, Verified 08/20/23 16:54) Abdominal Pain Medication List - Last Reconciled 08/20/23 by Anamika Bragg CNP albuterol sulfate 90 mcg/actuation 2 puffs PO Q6H PRN albuterol sulfate 2.5 mg (3 mL) inhalation Q6H PRN 30 days atorvastatin 20 mg PO BEDTIME bisacodyl (Fleet Bisacodyl) 10 mg (30 mL) VT DAILY PRN 30 days blood sugar diagnostic (FreeStyle Lite Strips) As directed, to test blood sugar 4 times a day blood-glucose meter (FreeStyle Lite Meter kit) DX: E11.9, test blood sugar 2 times a day, duration 999 days cane Daily As directed. 999 days crutches (pair of crutches) As directed crutches (pair of crutches) As directed docusate sodium 100 mg PO BID Dupixent Pen (dupilumab) 300 mg (2 mL) subcut Q2W NS fluticasone propion-salmeterol 230-21 mcg/actuation (Advair HFA) 2 puffs inhalation Q12H 30 days ipratropium-albuterol 0.5 mg-3 mg(2.5 mg base)/3 mL 3 mL inhalation Q6H PRN lancets (FreeStyle Lancets) As directed lancets (FreeStyle Lancets) As directed bs checks 2-3 times per day Lantus Solostar U-100 Insulin (insulin glargine) 20 units (0.2 mL) subcut QAM NS linaclotide (Linzess) 290 mcg PO DAILY lisinopril 10 mg PO DAILY 30 days magnesium oxide 500 mg PO BID 30 days methadone 53 mg PO DAILY miscellaneous medical supply quad cane small base montelukast 10 mg PO BEDTIME nebulizers As directed Novolog FlexPen U-100 Insulin (insulin aspart U-100) 36 units in AM prior to breakfast and 20 uinits prior to lunch subcutaneously 3 times a day; 30 units in AM prior to breakfast and 20 uinits prior to lunch and dinner subcutaneously 3 times a day; NS ondansetron 4 mg PO Q8H 30 days peg-electrolyte soln 420 gram 240 mL PO Q10M pen needle, diabetic (Novofine 32) As directed injects 4 X/day pentoxifylline ER 400 mg PO TID 90 days polyethylene glycol 3350 (Miralax) 17 grams PO DAILY PRN prednisone PO daily; Take 6 tabs daily x 3 days, then 5 tabs x 3 days, then 4 tabs x 3 days, then 3 tabs x 3 days, then 2 tabs daily x 3 days, then 1 tab x 3 days to complete. 18 days vitamin A palmitate 10,000 units PO DAILY 60 days Tobacco use date assessed: 12/19/22 Dental Screening Dental Screen Date: 08/20/23 Did you have a dental visit in the last 12 months?: No Did you have a dental problem in the last 6 months where you did not have access to dental care?: No Was dental information given to patient?: Patient has dentist HPI HPI Comments History of Present Illness Details 53 y/o male presents for diabetes and HT N follow up He admits to taking his medications as prescribed except for Lisinopril which he did not take for about a month. He notes that he ran out of the script and did was not notified by the pharmacy when it was refilled. He picked up the medication two days ago and has been taking it as prescribed. He reports chronic right lower extremity pain and left hip pain. He he is followed by [facility] pain management clinic. [facility] Medical History Chronic allergic rhinitis Diabetes Complex regional pain syndrome I Deficient knowledge of leg surgery home care Sinusitis Pre-op evaluation Methadone use GERD (gastroesophageal reflux disease) History of kidney stones Internal and external bleeding hemorrhoids Severe persistent asthma Sciatica Arthritis Anemia Hiatal hernia Dysphagia Hepatitis C COPD (chronic obstructive pulmonary disease) HTN (hypertension) History of drug abuse Cellulitis Surgical History History of common bile duct surgery History of hemorrhoidectomy Hx of endoscopy History of colonoscopy History of laparoscopy History of appendectomy Family History Father Diabetes Hypertension Mother Hypertension Social History Housing: Apartment Are you a primary care transition coordinator to a significant other at home: No Do you presently have visiting nurse or other home services: No Alcohol intake: never Comment: cramping, relieved partially after using bathroom Patient Tobacco Use Status: Former Tobacco user Quit Date: 2009 Tobacco use type: Cigarette e-Cigarette/Vaping Use: Never Used Second Hand Smoke Exposure: No Substance Use Type: Opiates service: No Current occupational status: unemployed Current occupational exposures/hazards: No Cognitive needs: No Hearing needs: No Vision needs: No Questionnaire Thrive Questionnaire Date Thrive assessed: 11/17/22 CORNELIUS-7 AMB Questionnaire CORNELIUS-7 Date CORNELIUS - 7 assessed: 11/17/22 Source: Developed by Drs. Sigifredo Matson, Sangeeta Sandy, Ty Davis and colleagues, with an educational frida from [employer]. Review of Systems Const Details: Const Denies chills, Denies fatigue, Denies fever(s), Denies headache(s) and Denies weakness ENT Denies dizziness and Denies headache(s) Card Denies chest pain, Denies lightheadedness, Denies dyspnea and Denies other (Palpitations) Resp Denies cough, Denies dyspnea, Denies wheezing and Denies other ( shortness of breath) GI Denies abdominal pain, Denies melena, Denies hematochezia, Denies change in bowel habits, Denies dyspepsia and Denies nausea Denies hematuria and Denies dysuria Musc Reports as per HPI Skin/Breast Denies rash, Denies unusual bruising and Denies wounds Neuro Denies abnormal gait, Denies dizziness, Denies headache(s), Denies memory loss, Denies numbness, Denies Sensory deficit (Neuro), Denies tingling and Denies weakness Psych Denies anxiety, Denies depression, Denies memory loss Endo Denies cold intolerance, Denies fatigue, Denies heat intolerance, Denies polydipsia and Denies polyuria Aller/Immun Denies wheezing Physical exam (Primary Care) Vital Signs: Last Vital Signs Temp 97.8 F 08/20/23 16:34 Pulse 91 08/20/23 16:34 Resp 13 08/20/23 16:34 BP 158/94 H 08/20/23 16:34 Pulse Ox 98 08/20/23 16:34 Oxygen Delivery Method Room Air 08/20/23 16:34 BMI result Body Mass Index 35.9 Tobacco/Smoking Status: Tobacco use Status Tobacco use date assessed 12/19/22 08/20/23 16:34 Patient Tobacco Use Status Former Tobacco user 08/20/23 16:34 Tobacco use type Cigarette 08/20/23 16:34 e-Cigarette/Vaping Use Never Used 08/20/23 16:34 Thrive Assessment: Date of Thrive Assessment Date Thrive assessed 11/17/22 08/20/23 16:34 Const Other: General: no acute distress and well developed Nutritional Appearance: well nourished Orientation/consciousness: patient oriented x3 HENMT Head: Yes normocephalic and Yes atraumatic Eyes General: appearance normal, both eyes and all related structures Pupils: Equal, round and reactive pupils present EOM: EOMs intact bilaterally Resp Effort & Inspection: normal respiratory effort Auscultation: clear to auscultation bilaterally Cardio Rate: regular rate Rhythm: regular rhythm Heart sounds: S1 normal heart sound present, S2 normal heart sound present, no gallops, no murmurs and no rubs GI Palpation (GI): No Abdominal aortic bruit present, Soft to palpation, nontender, No hepatosplenomegaly present and No Rebound tenderness present Auscultation: normal bowel sounds General: Yes no CVA tenderness Back/Spine/Pelvis Back: no CVA tenderness Cervical Spine: cervical ROM normal and No Cervical spine tenderness Thoracic/Lumbar Spine: thoraco-lumbar ROM normal, No pain with thoraco-lumbar ROM, No thoracic spinal tenderness and No lumbar spinal tenderness Extrem General: Yes normal to inspection, No edema and No calf tenderness Skin General: warm and dry. Normal skin color. Normal skin turgor Neuro General: patient oriented x3, gait normal and no focal neuro deficit Cranial nerves: Yes Equal, round and reactive pupils present Cognition (Neuro): normal cognition Gait exam (Neuro): Normal gait present Sensory Exam: No Sensory deficit (Neuro) Psych Appearance: grossly normal Affect: normal affect Attitude: cooperative Thought process: Normal thought process present Results AMB Hemoglobin A1c AMB Hemoglobin A1c 6.6 % Last Edit by Linh Taylor MA on 08/20/23 16:59 Assessment and Plan Assessment & Plan (1) Diabetes mellitus: Code(s): E11.9 - Type 2 diabetes mellitus without complications Plan: A1c today is 6.6%, within goal of less than 7.0% NovoLog and Lantus as prescribed ADA diet and routine exercise encouraged Follow-up with endocrinology as scheduled next month Return in 1 month for hypertension follow-up or sooner with symptoms or concerns Verbalized understanding and agreed with treatment plan (2) HTN (hypertension): Code(s): I10 - Essential (primary) hypertension Plan: Resting blood pressure is 150/90, above goal of less than 130/80 He notes that he was out of lisinopril for about a month started taking the medication 2 days ago Will increase lisinopril to 20 mg daily. Take as prescribed Low-sodium diet encouraged Follow-up for nurse visit in 1 week Return in 1 month Verbalized understanding and agreed with treatment plan (3) Left hip pain: Code(s): M25.552 - Pain in left hip Plan: Reports chronic right lower extremity pain and left hip pain Advised to continue follow-up with pain management and adhere to treatment regimen Verbalized understanding and agreed with the plan (4) Pain of right lower extremity: Code(s): M79.604 - Pain in right leg Orders: Orders Microalbumin, Random (w Creat) Today E11.9 - Type 2 diabetes mellitus without complications AMB Hemoglobin A1c Today Z13.9 - Encounter for screening, unspecified Medications: New lisinopril 20 mg PO DAILY 30 tabs 3RF 30 days Discontinued lisinopril Discontinued Reason: Doctor's Order 10 mg PO DAILY 30 days 30 tabs 1RF Coding Level of Care Code Est Pt Level 3 (14717) Diagnoses Diabetes mellitus E11.9 HTN (hypertension) I10 Left hip pain M25.552 Pain of right lower extremity M79.604
[2023-08-20 16:58] VITALS: BP 150/90
== END 2023-08-20 17:15 ==
PROVIDERS: PCP Nurse Practitioner Family; Visit Provider Nurse Practitioner Family
DX: E11.9 Type 2 diabetes mellitus without complications (principal); I10 Essential (primary) hypertension; M25.552 Pain in left hip; M79.604 Pain in right leg
CPT/HCPCS: 83036; 99213

== ENCOUNTER 2023-08-23 14:16 | Outpatient (REF) | payer OTHER, SELFPAY ==
--- NOTE | 2023-08-23 14:19 | EMG_ITS ---
Chief complaint: Chronic right leg pain Reason for referral: Evaluate for neuropathy Referred by: Brianna Enriquez NP Procedure done: Right lower extremity Precautions and/or limitations: None The limb temperature was monitored continuously and remained between 32-36 degrees C during the performance of the NCS. Nerve Conduction Studies Motor Summary Table ?Stim Site NR Onset (ms) Norm Onset (ms) O-P Amp (mV) Norm O-P Amp iAmp (mV) Amp (1st) (%) Site1 Site2 Delta-0 (ms) Dist (cm) [place] (m/s) Norm [place] (m/s) Right Peroneal Motor (Ext Dig Brev) Ankle ? 4.5 <4.0 2.2 >2.5 2.3 100.0 Ankle Ext Dig Brev 4.5 0.0 B Fib ? 12.3 1.6 1.9 72.7 B Fib Ankle 7.8 34.0 44 >40 Poplt ? 12.9 2.8 2.9 127.3 Poplt B Fib 0.6 4.0 67 >40 FINDINGS: Right peroneal nerve showed prolonged distal latency, small amplitude distally but normal conduction velocity. Patient unable to continue test due to poor tolerance. IMPRESSION: This is an incomplete study. Thank you for your kind referral. Indiana Baxter MD, ANUSHKA Board Certified, [place] Board [employer] and Rehabilitation (ABPMR) Board Certified, [place] Board of Electrodiagnostic Medicine (ABEM) CODIN MTDD
== END 2023-08-23 14:17 | disposition home or self-care (01) ==
LOC: HO.NEURO 14:16
PROVIDERS: PCP Nurse Practitioner Family; Visit Provider Registered Nurse Emergency
DX: R20.2 Paresthesia of skin (principal); R52 Pain, unspecified
CPT/HCPCS: 95907

== ENCOUNTER → 2023-08-23 14:19 | Outpatient (BNV) | payer OTHER, SELFPAY | PROVIDERS: PCP Nurse Practitioner Family; Visit Provider Physical Medicine & Rehabilitation | DX: R94.131 Abnormal electromyogram [EMG] (principal) | CPT/HCPCS: 95907 ==

== ENCOUNTER 2023-08-24 10:11 | Outpatient (AMB) | payer OTHER, SELFPAY ==
--- NOTE | 2023-08-24 10:21 | MHC.OFFVIS ---
Intake Vital Signs 08/24/23 10:24 Height 5 ft 7 in Weight 229 lb 4.492 oz BMI 35.9 BP 182/104 H Blood Pressure Location Lt brachial Position Sitting Pulse 90 Intake Visit Reasons: 4 Month FU Intake Note: Kale presents in the office as a 4 month follow up. CC: He states that he is still having severe constipation. He is getting off the methadone and he states that he is just not able to go to the bathroom. Entry Level Required: No Allergies milk [MILK] Allergy (Severe, Verified 08/24/23 10:24) enterocolitis wheat [WHEAT] Allergy (Intermediate, Verified 08/24/23 10:24) enterocolitis amoxicillin [From AUGMENTIN] Adverse Reaction (Intermediate, Verified 08/24/23 10:24) N/V clavulanic acid [From AUGMENTIN] Adverse Reaction (Intermediate, Verified 08/24/23 10:24) N/V corn Adverse Reaction (Mild, Verified 08/24/23 10:24) Nausea and Vomiting ibuprofen [From MOTRIN] Adverse Reaction (Mild, Verified 08/24/23 10:24) ULCERS naproxen [NAPROXEN] Adverse Reaction (Mild, Verified 08/24/23 10:24) ULCERS NSAIDS (Non-Steroidal Anti-Inflamma [NSAIDS] Adverse Reaction (Mild, Verified 08/24/23 10:24) ULCERS oats Adverse Reaction (Mild, Verified 08/24/23 10:24) Abdominal Pain HPI 4 Month FU HPI Details 53 yr old here for f/u RECAP: ? His main complaint on initial presentation was epigastric pain, goes into the back like a stake ? going on for 2 yrs ? food makes pain worse, feels like gets stuck in epigastrium, ok with soup ? present daily ? comes and goes ? nausea and vomit which is food remnants, sometimes sees fresh blood ? has loose stools 2-3/week ? sometimes sees blood mixed with stool, going on for 2-3 yrs ? no grease in stool ? he does sniff heroin, 2-3 times a week on average ? no alcohol intake or other drugs ? he had colonoscopy 2010 and was pos for hemorrhoids ? had EGD same time, was normal per him ? never treated for hep c ? labs reviewed on [facility] ? CT imaging 03/2019- scarring noted in midline, some inguinal hernias, gastric distention. ? RAST with wheat and cow milk allergy, histamine mild elevated ? IgE- >1200 ? rechecked rast again and pos for oats and corn, dog dander ? did have egd/colonoscopy [facility] 2018 ? had felt 30-40% improved after avoiding allergens and medications ? he completed mavyret, ? f/u with pulmonology and allergy teams ? still on methadone ? commenced on biologic--dupixent ? Hep C PCR neg at 12 weeks, so cured ? EGD-- hiatal hernia 4 cm, esophagitis, savary dilation ? Cte-- no small bowel pathology or other obvious pathology ? GES-- 09/2019--normal, but actually rapid emptying ? capsule x 2 not able to visualize past the stomach even though GES nml ? He was given levsin and tigan due to persistent sx ? tigan had helped nausea, was awaiitng levsin ? still had ongoing sx with upper abdo pain, stabbing sensation, trouble swallowing solids sometimes, weight going up, appetite is good ? REPT EGD with VCE-- gastritis, VCE with possible chylous cyst at 1 hr 30 min but looked abn with protuberance and erythema, stippled appearance, uncertain if really polyp or submucosal nodule EGD done 06/2020--with dilation,? ridging of esophagus, gastritis ? HE was referred to [facility] and he was being followed up there, he had repeat EGD, colonoscopy, I don;t have results of bx ? he was pending a small bowel enteroscopy per the last note I saw but it seemed to have not been ordered so I ended up doing it at [place] on 09/07/20 but it was negative with no masses or worrying lesions noted. 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 INTERIM: Ongoing joint and hip pains, using walking stick instead of crutches still on methadone, on 49 mg, coming down gradually, still needing colyte for clear out of bowels maybe q10 d he is still taking trental 400 mg BID still taking linaclotide but feels not effective, also tried mag helped for short while, EXAM: GENERAL: The patient is well developed and nontoxic, obese VITAL SIGNS:see workflow HEENT: Nonicteric sclerae, PERRLA, EOMI. Oropharynx clear. Moist mucous membranes. Conjunctivae appear well perfused. No thyroid mass. CHEST: Chest wall is nontender. HEART: Regular rate and rhythm without murmurs. LUNGS: Clear to auscultation bilaterally. ABDOMEN: Soft, positive bowel sounds, tender ruq and lower abdo, no organomegaly, lap scar SKIN: dry skin NEUROLOGIC: Cranial nerves II-XII intact without motor/sensory deficit. MS: walking w stick Assessment & Plan (1) Constipation, 2/2 to inactivity, abdominal positioning, and methdone use, 2/ ZHANG wirh severe steatosis on MRI-cont trental PLAN: 1/ nevr got movantik, sent again along with nulyte prn 2/ cont trental =recheck labs next visit ? ? [facility] Medical History Chronic allergic rhinitis Diabetes Complex regional pain syndrome I Deficient knowledge of leg surgery home care Sinusitis Pre-op evaluation Methadone use GERD (gastroesophageal reflux disease) History of kidney stones Internal and external bleeding hemorrhoids Severe persistent asthma Sciatica Arthritis Anemia Hiatal hernia Dysphagia Hepatitis C COPD (chronic obstructive pulmonary disease) HTN (hypertension) History of drug abuse Cellulitis Surgical History History of common bile duct surgery History of hemorrhoidectomy Hx of endoscopy History of colonoscopy History of laparoscopy History of appendectomy Family History Father Diabetes Hypertension Mother Hypertension Social History Housing: Apartment Are you a primary memory care director to a significant other at home: No Do you presently have visiting nurse or other home services: No Alcohol intake: never Comment: cramping, relieved partially after using bathroom Patient Tobacco Use Status: Former Tobacco user Quit Date: 2009 Tobacco use type: Cigarette e-Cigarette/Vaping Use: Never Used Second Hand Smoke Exposure: No Substance Use Type: Opiates service: No Current occupational status: unemployed Current occupational exposures/hazards: No Cognitive needs: No Hearing needs: No Vision needs: No Physical Exam Vital Signs: Last Vital Signs Pulse 90 08/24/23 10:24 BP 182/104 H 08/24/23 10:24 BMI result Body Mass Index 35.9 Assessment & Plan Assessment & Plan (1) Nonalcoholic steatohepatitis (ZHANG): Code(s): K75.81 - Nonalcoholic steatohepatitis (ZHANG) Plan: PLAN: 1/ nevr got movantik, sent again along with nulyte prn 2/ cont trental =recheck labs next visit (2) Chronic constipation: Code(s): K59.09 - Other constipation Plan: PLAN: 1/ nevr got movantik, sent again along with nulyte prn 2/ cont trental =recheck labs next visit Medications: New naloxegol (Movantik) must be taken on empty stomach; no food 1 hr after or 2-3 hrs before dose 25 mg PO QAM 30 tabs 0RF peg-electrolyte soln 420 gram until fecal effluent is clear; 240 mL PO Q10M 4,000 mL 3RF Discontinued peg-electrolyte soln 420 gram until fecal effluent is clear; do not exceed a total volume of 2,000 mL Discontinued Reason: Doctor's Order 240 mL PO Q10M 4,000 mL 0RF Coding Level of Care Code Est Pt Level 3 (61038) Diagnoses Nonalcoholic steatohepatitis (ZHANG) K75.81 Chronic constipation K59.09
[2023-08-24 10:24] VITALS: BP 182/104; PULSE 90; BMI 35.9
== END 2023-08-24 11:06 | disposition home or self-care (01) ==
PROVIDERS: PCP Nurse Practitioner Family; Visit Provider Internal Medicine Gastroenterology
DX: K75.81 Nonalcoholic steatohepatitis (NASH) (principal); K59.09 Other constipation
CPT/HCPCS: 99213

== ENCOUNTER → 2023-08-24 10:11 | Outpatient (BNVA) | payer OTHER, SELFPAY | PROVIDERS: PCP Nurse Practitioner Family; Visit Provider Internal Medicine Gastroenterology | DX: K75.81 Nonalcoholic steatohepatitis (NASH) (principal); K59.09 Other constipation | CPT/HCPCS: 99212 ==

== ENCOUNTER 2023-09-14 07:52 | Outpatient (AMB) | payer OTHER, SELFPAY ==
--- NOTE | 2023-09-14 07:55 | A.OFFPC_ITS ---
Vital Signs 09/14/23 08:11 09/14/23 08:27 Height 5 ft 7 in Weight 231 lb BMI 36.2 BP 180/110 H 170/100 H Blood Pressure Location Lt brachial Lt brachial Position Sitting Sitting Respiration 16 Pulse 88 Pulse Source Pulse Oximeter Pulse Oximetry (%) 98 Oxygen Delivery Method Room Air Intake Visit Reasons: follow up bp check Intake Note: Patient reports he cannot take the 20mg lisinopril as it brings his blood pressure too low and he has been hospitalized at this dose. Patient is requesting the 10mg medications and a refill of his medications. 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: No Accompanied by: Self / Same As Patient Allergies milk [MILK] Allergy (Severe, Verified 09/14/23 08:21) enterocolitis wheat [WHEAT] Allergy (Intermediate, Verified 09/14/23 08:21) enterocolitis amoxicillin [From AUGMENTIN] Adverse Reaction (Intermediate, Verified 09/14/23 08:21) N/V clavulanic acid [From AUGMENTIN] Adverse Reaction (Intermediate, Verified 09/14/23 08:21) N/V corn Adverse Reaction (Mild, Verified 09/14/23 08:21) Nausea and Vomiting ibuprofen [From MOTRIN] Adverse Reaction (Mild, Verified 09/14/23 08:21) ULCERS naproxen [NAPROXEN] Adverse Reaction (Mild, Verified 09/14/23 08:21) ULCERS NSAIDS (Non-Steroidal Anti-Inflamma [NSAIDS] Adverse Reaction (Mild, Verified 09/14/23 08:21) ULCERS oats Adverse Reaction (Mild, Verified 09/14/23 08:21) Abdominal Pain Medication List - Last Reconciled 09/14/23 by Anamika Bragg CNP albuterol sulfate 90 mcg/actuation 2 puffs PO Q6H PRN albuterol sulfate 2.5 mg (3 mL) inhalation Q6H PRN 30 days atorvastatin 20 mg PO BEDTIME bisacodyl (Fleet Bisacodyl) 10 mg (30 mL) IA DAILY PRN 30 days blood sugar diagnostic (FreeStyle Lite Strips) As directed, to test blood sugar 4 times a day blood-glucose meter (FreeStyle Lite Meter kit) DX: E11.9, test blood sugar 2 times a day, duration 999 days cane Daily As directed. 999 days crutches (pair of crutches) As directed crutches (pair of crutches) As directed docusate sodium 100 mg PO BID Dupixent Pen (dupilumab) 300 mg (2 mL) subcut Q2W NS fluticasone propion-salmeterol 230-21 mcg/actuation (Advair HFA) 2 puffs inhalation Q12H 30 days ipratropium-albuterol 0.5 mg-3 mg(2.5 mg base)/3 mL 3 mL inhalation Q6H PRN lancets (FreeStyle Lancets) As directed lancets (FreeStyle Lancets) As directed bs checks 2-3 times per day Lantus Solostar U-100 Insulin (insulin glargine) 20 units (0.2 mL) subcut QAM NS lisinopril 20 mg PO DAILY 30 days magnesium oxide 500 mg PO BID 30 days methadone 53 mg PO DAILY miscellaneous medical supply quad cane small base montelukast 10 mg PO BEDTIME naloxegol (Movantik) 25 mg PO QAM nebulizers As directed Novolog FlexPen U-100 Insulin (insulin aspart U-100) 36 units in AM prior to breakfast and 20 uinits prior to lunch subcutaneously 3 times a day; 30 units in AM prior to breakfast and 20 uinits prior to lunch and dinner subcutaneously 3 times a day; NS ondansetron 4 mg PO Q8H 30 days peg-electrolyte soln 420 gram 240 mL PO Q10M pen needle, diabetic (Novofine 32) As directed injects 4 X/day pentoxifylline ER 400 mg PO TID 90 days polyethylene glycol 3350 (Miralax) 17 grams PO DAILY PRN prednisone PO daily; Take 6 tabs daily x 3 days, then 5 tabs x 3 days, then 4 tabs x 3 days, then 3 tabs x 3 days, then 2 tabs daily x 3 days, then 1 tab x 3 days to complete. 18 days vitamin A palmitate 10,000 units PO DAILY 60 days Tobacco use date assessed: 12/19/22 HPI HPI Comments History of Present Illness Details 53-year-old male presents for hypertensi on follow-up. He notes that he has not been taking his Lisinopril as prescribed. Instead, he has been taking an old script of 10 mg daily. He states that Lisinopril 20 mg makes his blood pressure too low and has been hospitalized for low blood pressure related to a dose of 20 mg of Lisinopril. His blood pressure is currently elevated. He notes that his elevated blood pressure is likely related to his current left hip pain. He denies headaches, visual disturbances, or dizziness. He reports acute on chronic left hip pain for the past 3 days. He is followed by [facility] pain management which he notes is not effective. He notes that he will find a pain specialist for his PCP to refer him. [facility] Medical History Chronic allergic rhinitis Diabetes Complex regional pain syndrome I Deficient knowledge of leg surgery home care Sinusitis Pre-op evaluation Methadone use GERD (gastroesophageal reflux disease) History of kidney stones Internal and external bleeding hemorrhoids Severe persistent asthma Sciatica Arthritis Anemia Hiatal hernia Dysphagia Hepatitis C COPD (chronic obstructive pulmonary disease) HTN (hypertension) History of drug abuse Cellulitis Surgical History History of common bile duct surgery History of hemorrhoidectomy Hx of endoscopy History of colonoscopy History of laparoscopy History of appendectomy Family History Father Diabetes Hypertension Mother Hypertension Social History Housing: Apartment Are you a primary home care consultant to a significant other at home: No Do you presently have visiting nurse or other home services: No Alcohol intake: never Comment: cramping, relieved partially after using bathroom Patient Tobacco Use Status: Former Tobacco user Quit Date: 2009 Tobacco use type: Cigarette e-Cigarette/Vaping Use: Never Used Second Hand Smoke Exposure: No Substance Use Type: Opiates service: No Current occupational status: unemployed Current occupational exposures/hazards: No Cognitive needs: No Hearing needs: No Vision needs: No Questionnaire Thrive Questionnaire Date Thrive assessed: 11/17/22 CORNELIUS-7 AMB Questionnaire CORNELIUS-7 Date CORNELIUS - 7 assessed: 11/17/22 Source: Developed by Drs. Sigifredo Matson, Sangeeta Sandy, Ty Davis and colleagues, with an educational frida from [employer]. Review of Systems Const Details: Const Denies chills, Denies fatigue, Denies fever(s), Denies headache(s) and Denies weakness ENT Denies dizziness and Denies headache(s) Card Denies chest pain, Denies lightheadedness, Denies dyspnea and Denies other (Palpitations) Resp Denies cough, Denies dyspnea, Denies wheezing and Denies other ( shortness of breath) GI Denies abdominal pain, Denies melena, Denies hematochezia, Denies change in bowel habits, Denies dyspepsia and Denies nausea Denies hematuria and Denies dysuria Musc Reports as per HPI Skin/Breast Denies rash, Denies unusual bruising and Denies wounds Neuro Denies abnormal gait, Denies dizziness, Denies headache(s), Denies memory loss, Denies numbness, Denies Sensory deficit (Neuro), Denies tingling and Denies weakness Psych Denies anxiety, Denies depression, Denies memory loss Endo Denies cold intolerance, Denies fatigue, Denies heat intolerance, Denies polydipsia and Denies polyuria Aller/Immun Denies wheezing Physical exam (Primary Care) Tobacco/Smoking Status: Tobacco use Status Tobacco use date assessed 12/19/22 09/14/23 07:56 Patient Tobacco Use Status Former Tobacco user 09/14/23 07:56 Tobacco use type Cigarette 09/14/23 07:56 e-Cigarette/Vaping Use Never Used 09/14/23 07:56 Thrive Assessment: Date of Thrive Assessment Date Thrive assessed 11/17/22 09/14/23 07:56 Const Other: General: no acute distress and well developed Nutritional Appearance: well nourished Orientation/consciousness: patient oriented x3 HENMT Head: Yes normocephalic and Yes atraumatic Eyes General: appearance normal, both eyes and all related structures Pupils: Equal, round and reactive pupils present EOM: EOMs intact bilaterally Resp Effort & Inspection: normal respiratory effort Auscultation: clear to auscultation bilaterally Cardio Rate: regular rate Rhythm: regular rhythm Heart sounds: S1 normal heart sound present, S2 normal heart sound present, no gallops, no murmurs and no rubs GI Palpation (GI): No Abdominal aortic bruit present, Soft to palpation, nontender, No hepatosplenomegaly present and No Rebound tenderness present Auscultation: normal bowel sounds General: Yes no CVA tenderness Back/Spine/Pelvis Back: no CVA tenderness Cervical Spine: cervical ROM normal and No Cervical spine tenderness Thoracic/Lumbar Spine: thoraco-lumbar ROM normal, No pain with thoraco-lumbar ROM, No thoracic spinal tenderness and No lumbar spinal tenderness Extrem General: Yes normal to inspection, No edema and No calf tenderness Skin General: warm and dry. Normal skin color. Normal skin turgor Neuro General: patient oriented x3, gait normal and no focal neuro deficit Cranial nerves: Yes Equal, round and reactive pupils present Cognition (Neuro): normal cognition Gait exam (Neuro): Normal gait present Sensory Exam: No Sensory deficit (Neuro) Psych Appearance: grossly normal Affect: normal affect Attitude: cooperative Thought process: Normal thought process present Assessment and Plan Assessment & Plan (1) HTN (hypertension): Code(s): I10 - Essential (primary) hypertension Plan: Resting blood pressure is 170/100, above goal of less than 140/90 Instructed on the importance of controlling his blood pressure. He agrees to take lisinopril 20 mg daily. He notes that he does not have the medication at home His left hip pain may be a contributing factor Lisinopril resent to the pharmacy. 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
[2023-09-14 08:11] VITALS: BP 180/110; PULSE 88; RESP 16; O2SAT 98; BMI 36.2
[2023-09-14 08:27] VITALS: BP 170/100
== END 2023-09-14 08:36 | disposition home or self-care (01) ==
PROVIDERS: PCP Nurse Practitioner Family; Visit Provider Nurse Practitioner Family
DX: I10 Essential (primary) hypertension (principal); M25.552 Pain in left hip
CPT/HCPCS: 99213

== ENCOUNTER 2023-09-21 11:09 | Outpatient (AMB) | payer OTHER, SELFPAY ==
[2023-09-21 11:08] VITALS: BP 166/100; PULSE 128; RESP 13; TEMP 36.5; O2SAT 98; BMI 35.7
--- NOTE | 2023-09-21 11:08 | MHC.PC.OV ---
Vital Signs 09/21/23 11:08 Height 5 ft 7 in Weight 228 lb BMI 35.7 BP 166/100 H Blood Pressure Location Rt brachial Position Sitting Respiration 13 Pulse 128 H Pulse Source Pulse Oximeter Temp 97.7 F Temp Source Temporal Artery Scan Pulse Oximetry (%) 98 Oxygen Delivery Method Room Air Intake Visit Reasons: vomiting, dehydration? Marketing Campaign Analyst Required: No Accompanied by: Self / Same As Patient Allergies milk [MILK] Allergy (Severe, Verified 09/21/23 11:20) enterocolitis wheat [WHEAT] Allergy (Intermediate, Verified 09/21/23 11:20) enterocolitis amoxicillin [From AUGMENTIN] Adverse Reaction (Intermediate, Verified 09/21/23 11:20) N/V clavulanic acid [From AUGMENTIN] Adverse Reaction (Intermediate, Verified 09/21/23 11:20) N/V corn Adverse Reaction (Mild, Verified 09/21/23 11:20) Nausea and Vomiting ibuprofen [From MOTRIN] Adverse Reaction (Mild, Verified 09/21/23 11:20) ULCERS naproxen [NAPROXEN] Adverse Reaction (Mild, Verified 09/21/23 11:20) ULCERS NSAIDS (Non-Steroidal Anti-Inflamma [NSAIDS] Adverse Reaction (Mild, Verified 09/21/23 11:20) ULCERS oats Adverse Reaction (Mild, Verified 09/21/23 11:20) Abdominal Pain Medication List - Last Reconciled 09/21/23 by Anamika Bragg CNP albuterol sulfate 90 mcg/actuation 2 puffs PO Q6H PRN albuterol sulfate 2.5 mg (3 mL) inhalation Q6H PRN 30 days atorvastatin 20 mg PO BEDTIME bisacodyl (Fleet Bisacodyl) 10 mg (30 mL) [place] DAILY PRN 30 days blood sugar diagnostic (FreeStyle Lite Strips) As directed, to test blood sugar 4 times a day blood-glucose meter (FreeStyle Lite Meter kit) DX: E11.9, test blood sugar 2 times a day, duration 999 days cane Daily As directed. 999 days crutches (pair of crutches) As directed crutches (pair of crutches) As directed docusate sodium 100 mg PO BID Dupixent Pen (dupilumab) 300 mg (2 mL) subcut Q2W NS fluticasone propion-salmeterol 230-21 mcg/actuation (Advair HFA) 2 puffs inhalation Q12H 30 days ipratropium-albuterol 0.5 mg-3 mg(2.5 mg base)/3 mL 3 mL inhalation Q6H PRN lancets (FreeStyle Lancets) As directed lancets (FreeStyle Lancets) As directed bs checks 2-3 times per day Lantus Solostar U-100 Insulin (insulin glargine) 20 units (0.2 mL) subcut QAM NS lisinopril 20 mg PO DAILY 30 days magnesium oxide 500 mg PO BID 30 days methadone 53 mg PO DAILY miscellaneous medical supply quad cane small base montelukast 10 mg PO BEDTIME naloxegol (Movantik) 25 mg PO QAM nebulizers As directed Novolog FlexPen U-100 Insulin (insulin aspart U-100) 36 units in AM prior to breakfast and 20 uinits prior to lunch subcutaneously 3 times a day; 30 units in AM prior to breakfast and 20 uinits prior to lunch and dinner subcutaneously 3 times a day; NS ondansetron 4 mg PO Q8H 30 days peg-electrolyte soln 420 gram 240 mL PO Q10M pen needle, diabetic (Novofine 32) As directed injects 4 X/day pentoxifylline ER 400 mg PO TID 90 days polyethylene glycol 3350 (Miralax) 17 grams PO DAILY PRN prednisone PO daily; Take 6 tabs daily x 3 days, then 5 tabs x 3 days, then 4 tabs x 3 days, then 3 tabs x 3 days, then 2 tabs daily x 3 days, then 1 tab x 3 days to complete. 18 days vitamin A palmitate 10,000 units PO DAILY 60 days Tobacco use date assessed: 09/21/23 Dental Screening Dental Screen Date: 09/21/23 Did you have a dental visit in the last 12 months?: No Did you have a dental problem in the last 6 months where you did not have access to dental care?: No Was dental information given to patient?: Patient has dentist HPI HPI Comments History of Present Illness Details 53-year-old male presents with complaints of nonboody vomiting which started 2 days ago He notes that the vomiting started after he consumed peg-electrolyte soln for constipation. He notes that his last bowel movement the day before his symptoms started; prior to that, had not had a bowel movement for 1 week. He notes that he vomited yellow and greenish secretion and started dry heaving this morning. His last vomit was 8am today. He notes associated left sided abdomen discomfort. He notes that ondansetron has been providing temporary relief of vomiting, 1-1.5 hr. He notes that he feels very dry and thirsty. He states he contacts Dr. Swift's, Gastroentrology office and waiting to hear back. He is currently experiencing nausea and left-sided abdominal discomfort. He has not be able to retain food, water, or medications. ? ? [facility] Medical History Chronic allergic rhinitis Diabetes Complex regional pain syndrome I Deficient knowledge of leg surgery home care Sinusitis Pre-op evaluation Methadone use GERD (gastroesophageal reflux disease) History of kidney stones Internal and external bleeding hemorrhoids Severe persistent asthma Sciatica Arthritis Anemia Hiatal hernia Dysphagia Hepatitis C COPD (chronic obstructive pulmonary disease) HTN (hypertension) History of drug abuse Cellulitis Surgical History History of common bile duct surgery History of hemorrhoidectomy Hx of endoscopy History of colonoscopy History of laparoscopy History of appendectomy Family History Father Diabetes Hypertension Mother Hypertension Social History Housing: Apartment Are you a primary anesthesiologist and critical care to a significant other at home: No Do you presently have visiting nurse or other home services: No Alcohol intake: never Comment: cramping, relieved partially after using bathroom Patient Tobacco Use Status: Former Tobacco user Quit Date: 2009 Tobacco use type: Cigarette e-Cigarette/Vaping Use: Never Used Second Hand Smoke Exposure: No Substance Use Type: Opiates service: No Current occupational status: unemployed Current occupational exposures/hazards: No Cognitive needs: No Hearing needs: No Vision needs: No Questionnaire Thrive Questionnaire Date Thrive assessed: 11/17/22 CORNELIUS-7 AMB Questionnaire CORNELIUS-7 Date CORNELIUS - 7 assessed: 11/17/22 Source: Developed by Drs. Sigifredo Matson, Sangeeta Sandy, Ty Davis and colleagues, with an educational frida from [employer]. Review of Systems Const Details: Const Denies chills, Denies fatigue, Denies fever(s), Denies headache(s) and Denies weakness ENT Denies dizziness and Denies headache(s) Card Denies chest pain, Denies lightheadedness, Denies dyspnea and Denies other (Palpitations) Resp Denies cough, Denies dyspnea, Denies wheezing and Denies other (shortness of breath) GI Reports abdominal pain, Denies melena, Denies hematochezia, Reports constipation, Denies dyspepsia and Reports nausea, Reports vomiting Denies hematuria and Denies dysuria Musc Denies abnormal gait, Denies myalgias, Denies arthralgias, Denies numbness and Denies tingling Skin/Breast Denies rash, Denies unusual bruising and Denies wounds Neuro Denies abnormal gait, Denies dizziness, Denies headache(s), Denies memory loss, Denies numbness, Denies Sensory deficit (Neuro), Denies tingling and Denies weakness Psych Denies anxiety, Denies depression, Denies memory loss Endo Denies cold intolerance, Denies fatigue, Denies heat intolerance, Denies polydipsia and Denies polyuria Aller/Immun Denies wheezing Physical exam (Primary Care) Vital Signs: Last Vital Signs Temp 97.7 F 09/21/23 11:08 Pulse 128 H 09/21/23 11:08 Resp 13 09/21/23 11:08 BP 166/100 H 09/21/23 11:08 Pulse Ox 98 09/21/23 11:08 Oxygen Delivery Method Room Air 09/21/23 11:08 BMI result Body Mass Index 35.7 Tobacco/Smoking Status: Tobacco use Status Tobacco use date assessed 12/19/22 09/20/23 17:00 Patient Tobacco Use Status Former Tobacco user 09/20/23 17:00 Tobacco use type Cigarette 09/20/23 17:00 e-Cigarette/Vaping Use Never Used 09/20/23 17:00 Thrive Assessment: Date of Thrive Assessment Date Thrive assessed 11/17/22 09/20/23 17:00 Const Other: General: no acute distress and well developed Nutritional Appearance: well nourished Orientation/consciousness: patient oriented x3 HENMT Head: Yes normocephalic and Yes atraumatic Eyes General: appearance normal, both eyes and all related structures Pupils: Equal, round and reactive pupils present EOM: EOMs intact bilaterally Resp Effort & Inspection: normal respiratory effort Auscultation: clear to auscultation bilaterally Cardio Rate: regular rate Rhythm: regular rhythm Heart sounds: S1 normal heart sound present, S2 normal heart sound present, no gallops, no murmurs and no rubs GI Palpation (GI): No Abdominal aortic bruit present, Soft to palpation, severe left-sided abdominal tenderness to palpation, No hepatosplenomegaly present and No Rebound tenderness present Auscultation: hypoactive bowel sounds General: Yes no CVA tenderness Back/Spine/Pelvis Back: no CVA tenderness Cervical Spine: cervical ROM normal and No Cervical spine tenderness Thoracic/Lumbar Spine: thoraco-lumbar ROM normal, No pain with thoraco-lumbar ROM, No thoracic spinal tenderness and No lumbar spinal tenderness Extrem General: Yes normal to inspection, No edema and No calf tenderness Skin General: warm and dry. Normal skin color. Normal skin turgor Neuro General: patient oriented x3, gait normal and no focal neuro deficit Cranial nerves: Yes Equal, round and reactive pupils present Cognition (Neuro): normal cognition Gait exam (Neuro): Normal gait present Sensory Exam: No Sensory deficit (Neuro) Psych Appearance: grossly normal Affect: normal affect Attitude: cooperative Thought process: Normal thought process present Assessment and Plan Assessment & Plan (1) Nausea and vomiting: Code(s): R11.2 - Nausea with vomiting, unspecified Plan: Persistent nausea and nonbloody vomiting x3 days. Unable to retain fluid, foods, medications Severe left-sided abdominal tenderness to palpation Likely constipation, gastritis, pancreatitis Advised to go [place] [facility] [place] and treatment The nurse call and get report to [facility] (2) Chronic constipation: Code(s): K59.09 - Other constipation Plan: As above (3) Abdominal pain: Code(s): R10.9 - Unspecified abdominal pain Plan: As above (4) HTN (hypertension): Code(s): I10 - Essential (primary) hypertension Plan: Blood pressure is 166/100, above goal of less than 130/80. Heart rate is elevated, 128 He admits to taking lisinopril as prescribed by notes that he has not been able to retain fluids, foods, or medications due to vomiting x3 days Dehydration is also possible Advised to go [place] [facility] [place] further evaluation and treatment The nurse called and gave report to [facility] Verbalized understanding and agreed with the plan Coding Level of Care Code Est Pt Level 4 (17121) Diagnoses Nausea and vomiting R11.2 Chronic constipation K59.09 Abdominal pain R10.9 HTN (hypertension) I10
== END 2023-09-21 11:48 | disposition home or self-care (01) ==
PROVIDERS: Visit Provider Nurse Practitioner Family
DX: R11.2 Nausea with vomiting, unspecified (principal); K59.09 Other constipation; R10.9 Unspecified abdominal pain; I10 Essential (primary) hypertension
CPT/HCPCS: 99214

== ENCOUNTER 2023-10-01 12:44 | Outpatient (AMB) | payer OTHER, SELFPAY ==
[2023-10-01 12:53] VITALS: BP 150/86; PULSE 90; BMI 36.1
--- NOTE | 2023-10-01 12:53 | A.OFFVIS_ITS ---
Intake Vital Signs 10/01/23 12:53 Height 5 ft 7 in Weight 230 lb 6.129 oz BMI 36.1 BP 150/86 H Blood Pressure Location Lt brachial Position Sitting Pulse 90 Pulse Source Pulse Oximeter Intake Visit Reasons: f/u Type 2 DM-confirmed Intake Note: Patient present today to follow up on Type 2 Diabetes Mellitus. Patient receives DME supplies through: [employer] Last Diabetic Eye exam: 10/31/2022 [facility] Last Podiatry Visit: None Random Glucose: 154 mg/dl HgA1C: 6.6% 08/20/2023 Electronic Transaction Implementer Required: No Accompanied by: Self / Same As Patient Allergies milk [MILK] Allergy (Severe, Verified 10/01/23 12:59) enterocolitis wheat [WHEAT] Allergy (Intermediate, Verified 10/01/23 12:59) enterocolitis amoxicillin [From AUGMENTIN] Adverse Reaction (Intermediate, Verified 10/01/23 12:59) N/V clavulanic acid [From AUGMENTIN] Adverse Reaction (Intermediate, Verified 10/01/23 12:59) N/V corn Adverse Reaction (Mild, Verified 10/01/23 12:59) Nausea and Vomiting ibuprofen [From MOTRIN] Adverse Reaction (Mild, Verified 10/01/23 12:59) ULCERS naproxen [NAPROXEN] Adverse Reaction (Mild, Verified 10/01/23 12:59) ULCERS NSAIDS (Non-Steroidal Anti-Inflamma [NSAIDS] Adverse Reaction (Mild, Verified 10/01/23 12:59) ULCERS oats Adverse Reaction (Mild, Verified 10/01/23 12:59) Abdominal Pain Medication List - Last Reconciled 10/01/23 by Sigifredo Molina MD albuterol sulfate 90 mcg/actuation 2 puffs PO Q6H PRN albuterol sulfate 2.5 mg (3 mL) inhalation Q6H PRN 30 days atorvastatin 20 mg PO BEDTIME bisacodyl (Fleet Bisacodyl) 10 mg (30 mL) [place] DAILY PRN 30 days blood sugar diagnostic (FreeStyle Lite Strips) As directed, to test blood sugar 4 times a day blood-glucose meter (FreeStyle Lite Meter kit) DX: E11.9, test blood sugar 2 times a day, duration 999 days cane Daily As directed. 999 days crutches (pair of crutches) As directed crutches (pair of crutches) As directed docusate sodium 100 mg PO BID Dupixent Pen (dupilumab) 300 mg (2 mL) subcut Q2W NS fluticasone propion-salmeterol 230-21 mcg/actuation (Advair HFA) 2 puffs inhalation Q12H 30 days ipratropium-albuterol 0.5 mg-3 mg(2.5 mg base)/3 mL 3 mL inhalation Q6H PRN lancets (FreeStyle Lancets) As directed lancets (FreeStyle Lancets) As directed bs checks 2-3 times per day Lantus Solostar U-100 Insulin (insulin glargine) 20 units (0.2 mL) subcut QAM NS lisinopril 20 mg PO DAILY 30 days magnesium hydroxide (Milk of Magnesia) 20 mL PO DAILY magnesium oxide 500 mg PO BID 30 days methadone 53 mg PO DAILY miscellaneous medical supply quad cane small base montelukast 10 mg PO BEDTIME naloxegol (Movantik) 25 mg PO QAM nebulizers As directed Novolog FlexPen U-100 Insulin (insulin aspart U-100) 36 units in AM prior to breakfast and 20 uinits prior to lunch subcutaneously 3 times a day; 30 units in AM prior to breakfast and 20 uinits prior to lunch and dinner subcutaneously 3 times a day; NS ondansetron 4 mg PO Q8H 30 days peg-electrolyte soln 420 gram 240 mL PO Q10M pen needle, diabetic (Novofine 32) As directed injects 4 X/day pentoxifylline ER 400 mg PO TID 90 days polyethylene glycol 3350 (Miralax) 17 grams PO DAILY PRN prednisone PO daily; Take 6 tabs daily x 3 days, then 5 tabs x 3 days, then 4 tabs x 3 days, then 3 tabs x 3 days, then 2 tabs daily x 3 days, then 1 tab x 3 days to complete. 18 days HPI HPI Comments History of Present Illness Details 53 YO M who is seen in consultation for T2DM at the request of PCP. Initially diagnosed with T2DM in 1 yr ago . Was initially started on treatment with metformin .could not tolerate GI issues Current regimen t Lantus 20 units Novolog 30 units befor breakfast and 20 units lunch and 20 units before dinner r Unfortunately, patient not bring his glucometer or sensor to the follow-up visit Hypoglycemia once or twice a wk Family history of T2DM in father has Type 2 DM. Has eyes checked yearly, last eye exam 01/2023 , denies retinopathy. Has appt 10/31/2022 Denies neuropathy, last foot exam [], sees [id number] mos ago . Denies nephropathy, Not on FATIMAH/ARB. ? HLD, Not on statin. Denies CAD. Not Had diabetes education. Had bile duct flap placed in May 2022 [facility] Medical History Chronic allergic rhinitis Diabetes Complex regional pain syndrome I Deficient knowledge of leg surgery home care Sinusitis Pre-op evaluation Methadone use GERD (gastroesophageal reflux disease) History of kidney stones Internal and external bleeding hemorrhoids Severe persistent asthma Sciatica Arthritis Anemia Hiatal hernia Dysphagia Hepatitis C COPD (chronic obstructive pulmonary disease) HTN (hypertension) History of drug abuse Cellulitis Surgical History History of common bile duct surgery History of hemorrhoidectomy Hx of endoscopy History of colonoscopy History of laparoscopy History of appendectomy Family History Father Diabetes Hypertension Mother Hypertension Social History Housing: Apartment Are you a primary career information specialist to a significant other at home: No Do you presently have visiting nurse or other home services: No Alcohol intake: never Comment: cramping, relieved partially after using bathroom Patient Tobacco Use Status: Former Tobacco user Quit Date: 2009 Tobacco use type: Cigarette e-Cigarette/Vaping Use: Never Used Second Hand Smoke Exposure: No Substance Use Type: Opiates service: No Current occupational status: unemployed Current occupational exposures/hazards: No Cognitive needs: No Hearing needs: No Vision needs: No Physical Exam Vital Signs: Last Vital Signs Pulse 90 10/01/23 12:53 BP 150/86 H 10/01/23 12:53 BMI result Body Mass Index 36.1 Absence of Cushingoid features. Absence of acromegalic features. Neck exam reveals nl size thyroid about 15 gms. No thyroid nodules palpable. No carotid bruits present. Lungs CTA. Heart S1 S2, Reg R/R. No M/R/ G. Skin exam reveals absence of vitiligo or acanthosis nigricans. Abdominal exam reveals Soft NT/ND with NA BS. No organomegaly present. Neck Other: . Extrem Other: Visual exam of foot performed. No ulcerations or open lesions. No onchomycosis, no callouses.Pulses 2 + distally Sensation intact to monofilament exam. Vibratory sensation sensed is intact with 128 Hz tuning fork Assessment & Plan Assessment & Plan (1) Diabetes mellitus: Code(s): E11.9 - Type 2 diabetes mellitus without complications (2) Diabetes type 2, controlled: Code(s): E11.9 - Type 2 diabetes mellitus without complications Plan: This is a 53-year-old male with a history of type 2 diabetes being treated without pharmacologic therapy with basal-bolus insulin with excellent improved glycemic control and no known microvascular or macrovascular complications At this point, patient will follow up with his primary care provider and continue the current regimen. Returned back to endocrinology should his HbA1c deteriorate. His primary care provider might want to send him for a vascular consult considering he is complaining of ?feeling cold? in the lower extremities (3) Diabetes type 2, uncontrolled: Code(s): E11.65 - Type 2 diabetes mellitus with hyperglycemia Plan: See above for Plan See above plan for type 2 diabetes Coding Level of Care Code Est Pt Level 4 (77348) Diagnoses Diabetes mellitus E11.9 Diabetes type 2, controlled E11.9 Diabetes type 2, uncontrolled E11.65
[2023-10-01 13:09] LABS: Glucose, Whole Blood 154 mg/dL (60-115)
== END 2023-10-01 13:22 | disposition home or self-care (01) ==
PROVIDERS: PCP Nurse Practitioner Family; Visit Provider Internal Medicine Endocrinology, Diabetes & Metabolism
DX: E11.9 Type 2 diabetes mellitus without complications (principal); E11.65 Type 2 diabetes mellitus with hyperglycemia
CPT/HCPCS: 99214

== ENCOUNTER → 2023-10-01 12:44 | Outpatient (BNVA) | payer OTHER, SELFPAY | PROVIDERS: PCP Nurse Practitioner Family; Visit Provider Internal Medicine Endocrinology, Diabetes & Metabolism | DX: E11.65 Type 2 diabetes mellitus with hyperglycemia (principal) | CPT/HCPCS: 82947; 99212 ==

== ENCOUNTER 2023-10-05 15:05 | Outpatient (AMB) | payer OTHER, SELFPAY ==
[2023-10-05 15:17] VITALS: PULSE 89; O2SAT 97; BMI 35.2
--- NOTE | 2023-10-05 15:17 | MHC.OFFVIS ---
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 Required: No Allergies milk [MILK] Allergy (Severe, Verified 10/05/23 15:18) enterocolitis wheat [WHEAT] Allergy (Intermediate, Verified 10/05/23 15:18) enterocolitis amoxicillin [From AUGMENTIN] Adverse Reaction (Intermediate, Verified 10/05/23 15:18) N/V clavulanic acid [From AUGMENTIN] Adverse Reaction (Intermediate, Verified 10/05/23 15:18) N/V corn Adverse Reaction (Mild, Verified 10/05/23 15:18) Nausea and Vomiting ibuprofen [From MOTRIN] Adverse Reaction (Mild, Verified 10/05/23 15:18) ULCERS naproxen [NAPROXEN] Adverse Reaction (Mild, Verified 10/05/23 15:18) ULCERS NSAIDS (Non-Steroidal Anti-Inflamma [NSAIDS] Adverse Reaction (Mild, Verified 10/05/23 15:18) ULCERS oats Adverse Reaction (Mild, Verified 10/05/23 15:18) Abdominal Pain HPI HPI Comments History of Present Illness Details The patient is a 53-year-old gentleman with severe persistent asthma. He he has had previous intubations in the past for status asthmaticus. More recently he has had multiple bouts of prednisone tapers for his significant persistent symptoms. The patient has been using his current respiratory medications with very good adherence. However, still requiring short-acting beta agonists several times a day. He also uses nebulizer. At this point the patient is failing outpatient therapy with uncontrolled asthma. Has significant wheezing on examination. Also has significant allergies. A previous blood work is IgE levels had been noted to be elevated and also had some degree of eosinophilia. More recently he was evaluated by Allergy. He will be following up with them soon. Therefore, we will continue awaiting their recommendations. He also had pulmonary function studies demonstrating severe obstruction consistent with severe uncontrolled asthma. We did evaluate his blood work demonstrating the elevations in his eosinophils. The patient also has elevations in his eosinophils. Based on these findings and is positive allergy testing the patient is a great candidate for biologic therapy with Dupixent. 07/16/2020 the patient is here for pulmonary follow-up visit. Overall he is feeling relatively well from her asthma standpoint. He has been able to wean down the prednisone down to 10 mg daily. He did develop cellulitis of the foot and had been taking antibiotics. Therefore he understands he needs to cut down the prednisone in order to feel further. He will try to cut down to half a tablet daily. In the meantime he does complaint of wheezing and shortness of breath moderate severity. He has not been using inhalers is to not very effective. The nebulized therapies have appear to be more helpful. I do believe that the rescue med device may be a good option for him. Therefore I will send that to the pharmacy. He is also complaining of another ear discomfort. Appears that his right ear has some inflammation in the external canal. The patient is also having issues with abdominal hernias. He will be following up with the surgeon and a CT scan to see if he needs surgery. Ultimately he has responded very well to the Dupixent. His asthma has been much better controlled on the biologic injection therapy. 11/04/2020 the patient is here for a preoperative evaluation. Overall the patient has been doing very good from a respiratory status. He has been off all prednisone. Patient is continue with Dupixent every 2 weeks. He is continue with respiratory therapy as prescribed with good adherence. He has not required his nebulized therapy. He has been having issues with his hemorrhoids and will undergo surgery tomorrow. However due to his respiratory condition a preop was requested. The patient has been feeling well. He does have some cough but is nonproductive intubated in nature. He has been able to walk and go up a lot of stairs without any difficulty. In the office he did to spirometry with an FEV1 to FVC of 61% and FEV1 of 56% predicted. This is consistent with moderate COPD. Overall lot better for him. At this point the patient is medically optimized from a respiratory status. In regards to a surgical standpoint due to his respiratory issues he would benefit from avoiding general anesthesia to minimize bronchospasms and difficulty with per status if possible. Either LMA or spinal would be appropriate. However, if the alternatives are not available I do believe that based on his current respiratory status and is optimize state the patient is able to tolerate general anesthesia. Due to his moderate obstruction the patient does have increased perioperative pulmonary complications which include, atelectasis, hypoxia prolonged mechanical ventilation and also pneumonia. Again, patient is medically optimized and may able to pursue with surgery and anesthesia. 10/05/2023 the patient has a pulmonary visit today. Overall he is doing better from a respiratory status. He continues to Dupixent every 2 weeks with very good response. He does continue to use his maintenance therapy which includes Singulair and Combivent. The patient has not required any prednisone. He does have some dyspnea on exertion mild in severity. Also has an intermittent cough. That typically is nonproductive in nature. Otherwise he is without any other respiratory complaints. [facility] Medical History Chronic allergic rhinitis Diabetes Complex regional pain syndrome I Deficient knowledge of leg surgery home care Sinusitis Pre-op evaluation Methadone use GERD (gastroesophageal reflux disease) History of kidney stones Internal and external bleeding hemorrhoids Severe persistent asthma Sciatica Arthritis Anemia Hiatal hernia Dysphagia Hepatitis C COPD (chronic obstructive pulmonary disease) HTN (hypertension) History of drug abuse Cellulitis Surgical History History of common bile duct surgery History of hemorrhoidectomy Hx of endoscopy History of colonoscopy History of laparoscopy History of appendectomy Family History Father Diabetes Hypertension Mother Hypertension Social History Housing: Apartment Are you a primary animal caretaker to a significant other at home: No Do you presently have visiting nurse or other home services: No Alcohol intake: never Comment: cramping, relieved partially after using bathroom Patient Tobacco Use Status: Former Tobacco user Quit Date: 2009 Tobacco use type: Cigarette e-Cigarette/Vaping Use: Never Used Second Hand Smoke Exposure: No Substance Use Type: Opiates service: No Current occupational status: unemployed Current occupational exposures/hazards: No Cognitive needs: No Hearing needs: No Vision needs: No Review of Systems Const Denies chills and Denies fever(s) ENT Denies sinus pressure Card Denies chest pain Resp Denies change in phlegm color, Reports cough and Reports wheezing GI Denies change in bowel habits and Reports constipation Denies hematuria and Denies difficulty urinating Musc Reports abnormal gait, Denies back pain, Reports arthralgias, Reports joint swelling and Reports limited range of motion Neuro Reports abnormal gait, Denies focal weakness and Denies convulsions Psych Denies depression and Denies mood swings Irving/Lymph Denies lymphadenopathy Aller/Immun Reports wheezing Physical Exam Vital Signs: Last Vital Signs Pulse 89 10/05/23 15:17 Pulse Ox 97 10/05/23 15:17 Oxygen Delivery Method Room Air 10/05/23 15:17 BMI result Body Mass Index 35.2 Const General: alert Neck Neck: Yes normal visual inspection, Yes full ROM and Yes no lymphadenopathy Chest Chest palpation & inspection: normal inspection of the chest Resp Auscultation: no wheezes and diminished lung sounds Cardio Rate: regular rate Rhythm: regular rhythm Heart sounds: S1 normal heart sound present and S2 normal heart sound present GI Palpation (GI): Soft to palpation and nontender Auscultation: normal bowel sounds Assessment & Plan Assessment & Plan (1) Asthma: Code(s): J45.909 - Unspecified asthma, uncomplicated Qualifiers: Asthma complication type: uncomplicated Asthma persistence: persistent Asthma severity: severe Qualified Code(s): J45.50 - Severe persistent asthma, uncomplicated (2) GERD (gastroesophageal reflux disease): Code(s): K21.9 - Gastro-esophageal reflux disease without esophagitis Qualifiers: Esophagitis presence: without esophagitis Qualified Code(s): K21.9 - Gastro-esophageal reflux disease without esophagitis (3) Chronic allergic rhinitis: Code(s): J30.9 - Allergic rhinitis, unspecified Plan continue Dupixent 300mg [id number] Continue allergy therapy: singulair and zyrtec continue Duonebs as needed continue Advair HFA 230/21 2 puff BID reflux diet allergy therapy f/U 6-8 months Medications: New exsgxucp-mwatwr-FA-thonzonium 3.3-3-10-0.5 mg/mL (Cortisporin-TC) 4 drps otic (ear) left TID 10 days 10 mL 0RF Coding Level of Care Code Est Pt Level 4 (22276) Diagnoses Severe persistent asthma without complication J45.50 Asthma complication type: uncomplicated Asthma persistence: persistent Asthma severity: severe Gastroesophageal reflux disease without esophagitis K21.9 Esophagitis presence: without esophagitis Chronic allergic rhinitis J30.9 Time Spent (min) 17
== END 2023-10-05 15:39 | disposition home or self-care (01) ==
PROVIDERS: PCP Nurse Practitioner Family; Visit Provider Hospitalist
DX: J45.50 Severe persistent asthma, uncomplicated (principal); K21.9 Gastro-esophageal reflux disease without esophagitis; J30.9 Allergic rhinitis, unspecified
CPT/HCPCS: 99214

== ENCOUNTER → 2023-10-05 15:05 | Outpatient (BNVA) | payer OTHER, SELFPAY | PROVIDERS: PCP Nurse Practitioner Family; Visit Provider Hospitalist | DX: J45.50 Severe persistent asthma, uncomplicated (principal); J30.9 Allergic rhinitis, unspecified; K21.9 Gastro-esophageal reflux disease without esophagitis | CPT/HCPCS: 99212 ==

== ENCOUNTER 2023-10-17 13:00 | Outpatient (RCR) | payer OTHER, SELFPAY ==
[2023-09-25 12:55] VITALS: BP 145/78; PULSE 77; O2SAT 97
--- NOTE | 2023-09-25 14:57 | MHC.PT.EP ---
[facility] [place] [facility] [place] [facility] [place] [facility] [address] Rocael Loyola [address] [phone] F: [phone] F: [phone] F: [phone] F: [phone] Physical Therapy Plan of Care Date of Evaluation: 09/25/23 Date of Surgery: Diagnosis: Mononeuropathy unspecified, pain in leg unspecified R lower extremity, L hip pain. Assessment: Pt is a 53 y/o male with PMHx of Diabetes, Complex regional pain syndrome I, Severe persistent asthma, GERD, Arthritis, Hepatitis C, COPD, HTN and Hx of drug addiction and methadone use is referred to PT for eval and treat of mononeuropathy unspecified, pain in leg unspecified R lower extremity, L hip pain which is resulting in decreased tolerance for standing, walking, sit to stand transfers, as well as performing heavier HH chores secondary to Hx of chronic B leg pain, decreased B hip and LE strength, gait abnormality, TTP of lateral L hip, sedentary lifestyle and pain. Pt is deemed an appropriate candidate to receive skilled PT services to address their physical impairments in order to improve their functional ability. Frequency and Duration: The patient will be seen 2 x / wk x 4 wks. Short Term Goals: initiate home program. Improve baseline pain to < 8/10; initial 10/10. Physical Therapy Assistant Goals: I with home program. Improve LEFI outcome measure by at least 9 points. Pt will be able to tolerate walking 2 blocks with at most moderate difficulty; initial: extreme difficulty or unable. Pt will be able to tolerate sitting > 1 hour with at most moderate difficulty; Treatment Plan: Modalities to reduce pain, spasms and effusion. Manual therapy to restore motion and function. Therapeutic exercise to improve strength and flexibility. Neuromuscular re-education for posture and balance. Therapeutic activities to return to functional activities of daily living. Electronically signed by: Tung Posadas PT. Please sign and return to therapist. Thank you for your referral.
--- NOTE | 2024-02-12 16:11 | MHC.PT.DC ---
[facility] [place] Office [place] Office [place] Office [address] Rocael Loyola [address] [phone] F: [phone] F: [phone] F: [phone] F: [phone] Physical Therapy Discharge Report Diagnosis: Mononeuropathy unspecified, pain in leg unspecified R lower extremity, L hip pain. Date of Surgery: Date of Evaluation: 09/25/23 Date of Discharge: 02/12/24 Treatments to Date: 2 Cancellations to Date: 2 No Shows to Date: 3 Discharge Status: Visit Non-compliance Discharge Summary: . Electronically signed by: Tung Posadas PT. Please sign and return to therapist. Thank you for your referral.
== END 2024-02-12 16:09 | disposition home or self-care (01) ==
LOC: HO.PT 13:00
PROVIDERS: Visit Provider Registered Nurse Emergency
DX: M79.606 Pain in leg, unspecified (principal); G58.9 Mononeuropathy, unspecified
CPT/HCPCS: 97110; 97162; 97530

== ENCOUNTER 2023-11-26 09:15 | Outpatient (AMB) | payer OTHER, SELFPAY ==
--- NOTE | 2023-11-26 09:36 | MHC.OFFVIS ---
Intake Vital Signs 11/26/23 09:41 Height 5 ft 7 in Weight 225 lb BMI 35.2 Intake Visit Reasons: New Prob- RT wrist pain Intake Note: Kale polo 53 year old right hand dominant male presents today for an evaluation of right wrist pain. Patient reports that his legs give out and he uses his hand a lot to break his fall. His wrist pain has been present for about a year and has been getting worse. States his pain radites into his forearm that feels like electrical shock. He is unable to lift items and has difficulty with using his cane. EMG done. Allergies milk [MILK] Allergy (Severe, Verified 10/05/23 15:18) enterocolitis wheat [WHEAT] Allergy (Intermediate, Verified 10/05/23 15:18) enterocolitis amoxicillin [From AUGMENTIN] Adverse Reaction (Intermediate, Verified 10/05/23 15:18) N/V clavulanic acid [From AUGMENTIN] Adverse Reaction (Intermediate, Verified 10/05/23 15:18) N/V corn Adverse Reaction (Mild, Verified 10/05/23 15:18) Nausea and Vomiting ibuprofen [From MOTRIN] Adverse Reaction (Mild, Verified 10/05/23 15:18) ULCERS naproxen [NAPROXEN] Adverse Reaction (Mild, Verified 10/05/23 15:18) ULCERS NSAIDS (Non-Steroidal Anti-Inflamma [NSAIDS] Adverse Reaction (Mild, Verified 10/05/23 15:18) ULCERS oats Adverse Reaction (Mild, Verified 10/05/23 15:18) Abdominal Pain HPI New Prob- RT wrist pain HPI Details 53 year old right hand dominant male presents today for an right wrist pain. He states the pain is more towards the base of his right thumb. He denies numbness or tingling. He uses a cane to ambulate and loses his balance quite often. He states that when he falls he uses his hand to brace himself and develops discomfort. [facility] Medical History Chronic allergic rhinitis Diabetes Complex regional pain syndrome I Deficient knowledge of leg surgery home care Sinusitis Pre-op evaluation Methadone use GERD (gastroesophageal reflux disease) History of kidney stones Internal and external bleeding hemorrhoids Severe persistent asthma Sciatica Arthritis Anemia Hiatal hernia Dysphagia Hepatitis C COPD (chronic obstructive pulmonary disease) HTN (hypertension) History of drug abuse Cellulitis Surgical History History of common bile duct surgery History of hemorrhoidectomy Hx of endoscopy History of colonoscopy History of laparoscopy History of appendectomy Family History Father Diabetes Hypertension Mother Hypertension Social History Housing: Apartment Are you a primary hemodialysis patient care specialist to a significant other at home: No Do you presently have visiting nurse or other home services: No Alcohol intake: never Comment: cramping, relieved partially after using bathroom Patient Tobacco Use Status: Former Tobacco user Quit Date: 2009 Tobacco use type: Cigarette e-Cigarette/Vaping Use: Never Used Second Hand Smoke Exposure: No Substance Use Type: Opiates service: No Current occupational status: unemployed Current occupational exposures/hazards: No Cognitive needs: No Hearing needs: No Vision needs: No Review of Systems Const All systems reviewed & are unremarkable except as noted in HPI and below Physical Exam Vital Signs: BMI result Body Mass Index 35.2 Const General: cooperative and no acute distress Orientation/consciousness: patient oriented x3 Resp Effort & Inspection: normal respiratory effort and able to speak in complete sentences Cardio Peripheral pulses: Peripheral pulses 2+ throughout Neuro General: patient oriented x3 Extrem Other: Right wrist without deformity. No swelling. Mild tenderness over the radial styloid. Positive Finklesteins. No pain with CMC grind. She is able to make a full fist and fully extend all digits. NVI. Results Reviewed Results Reviewed: Xrays were obtained in the office today and personally reviewed by me wof the right wrist are negative for acute fracture or dislocation. Assessment & Plan Assessment & Plan (1) De Quervain's disease (radial styloid tenosynovitis): Code(s): M65.4 - Radial styloid tenosynovitis [de Quervain] Plan: We discussed options which include physical therapy he still bracing. He is interested in a brace and was fit for a Velcro thumb spica brace which he will wear with activities and sleeping. We also discussed the benefits of occupational therapy to work on some conditioning exercises. If symptoms persist or worsen he will contact our office and discuss corticosteroid injection otherwise follow-up as needed. Orders: Orders XR wrist RT min 3V Today M25.531 - Pain in right wrist OT Evaluation and Treatment Today M65.4 - Radial styloid tenosynovitis [de Quervain] Coding Level of Care Code New Pt Level 3 (22474) Diagnoses De Quervain's disease (radial styloid tenosynovitis) M65.4
[2023-11-26 09:41] VITALS: BMI 35.2
== END 2023-11-26 10:15 | disposition home or self-care (01) ==
PROVIDERS: PCP Nurse Practitioner Family; Visit Provider Physician Assistant
DX: M65.4 Radial styloid tenosynovitis [de Quervain] (principal)
CPT/HCPCS: 99203

== ENCOUNTER 2023-11-26 10:54 | Outpatient (REF) | payer OTHER, SELFPAY ==
--- NOTE | ~2023-11-26 | XR_ITS ---
EXAMINATION: XR WRIST, RIGHT CLINICAL INFORMATION: Pain in right wrist. COMPARISON: None available. TECHNIQUE: PA, lateral, and oblique views of the right wrist. FINDINGS: Moderate degenerative changes in the first carpometacarpal joint with joint space narrowing and hypertrophic change. Bowing deformity of the fifth metacarpal is characteristic of prior fracture and correlation with clinical exam and history recommended for confirmation. Bone mineralization is normal. XR/XR wrist RT min 3V IMPRESSION: 1. Moderate degenerative changes first carpometacarpal joint. 2. Bowing deformity of the fifth metacarpal is characteristic of prior fracture and correlation with clinical exam and history recommended for confirmation. Recommend follow-up imaging in 10-14 days if fracture is suspected.
== END 2023-11-26 10:55 | disposition home or self-care (01) ==
LOC: HO.HOSX 10:54
PROVIDERS: Visit Provider Physician Assistant
DX: M25.531 Pain in right wrist (principal); M65.4 Radial styloid tenosynovitis [de Quervain]; K59.09 Other constipation
CPT/HCPCS: 73110; 99202; 99212

== ENCOUNTER 2023-11-26 11:05 | Outpatient (AMB) | payer OTHER, SELFPAY ==
--- NOTE | 2023-11-26 11:08 | MHC.OFFVIS ---
Intake Vital Signs 11/26/23 11:10 Height 5 ft 7 in Weight 229 lb 4.492 oz BMI 35.9 BP 165/96 H Blood Pressure Location Lt brachial Position Sitting Pulse 97 Intake Visit Reasons: 3 month follow up Intake Note: Kale presents in the office as a 3 month follow up. CC: Stomach pains very severe. Movantik helps but there is still pains. Still a little constipation. Works better than linzess. Discomfort and pains in the Anus when he has a BM. Some blood as well. Allergies milk [MILK] Allergy (Severe, Verified 11/26/23 11:11) enterocolitis wheat [WHEAT] Allergy (Intermediate, Verified 11/26/23 11:11) enterocolitis amoxicillin [From AUGMENTIN] Adverse Reaction (Intermediate, Verified 11/26/23 11:11) N/V clavulanic acid [From AUGMENTIN] Adverse Reaction (Intermediate, Verified 11/26/23 11:11) N/V corn Adverse Reaction (Mild, Verified 11/26/23 11:11) Nausea and Vomiting ibuprofen [From MOTRIN] Adverse Reaction (Mild, Verified 11/26/23 11:11) ULCERS naproxen [NAPROXEN] Adverse Reaction (Mild, Verified 11/26/23 11:11) ULCERS NSAIDS (Non-Steroidal Anti-Inflamma [NSAIDS] Adverse Reaction (Mild, Verified 11/26/23 11:11) ULCERS oats Adverse Reaction (Mild, Verified 11/26/23 11:11) Abdominal Pain HPI 3 month follow up HPI Details 53 yr old here for f/u RECAP: His main complaint on initial presentation was epigastric pain, goes into the back like a stake going on for 2 yrs food makes pain worse, feels like gets stuck in epigastrium, ok with soup present daily comes and goes nausea and vomit which is food remnants, sometimes sees fresh blood has loose stools 2-3/week sometimes sees blood mixed with stool, going on for 2-3 yrs no grease in stool he does sniff heroin, 2-3 times a week on average no alcohol intake or other drugs he had colonoscopy 2010 and was pos for hemorrhoids had EGD same time, was normal per him never treated for hep c labs reviewed on M[facility] CT imaging 03/2019- scarring noted in midline, some inguinal hernias, gastric distention. RAST with wheat and cow milk allergy, histamine mild elevated IgE- >1200 rechecked rast again and pos for oats and corn, dog dander did have egd/colonoscopy [facility] 2019 had felt 30-40% improved after avoiding allergens and medications he completed maalex, f/u with pulmonology and allergy teams still on methadone commenced on biologic--dupixent Hep C PCR neg at 12 weeks, so cured EGD-- hiatal hernia 4 cm, esophagitis, savary dilation Cte-- no small bowel pathology or other obvious pathology GES-- 09/2019--normal, but actually rapid emptying capsule x 2 not able to visualize past the stomach even though GES nml He was given levsin and tigan due to persistent sx tigan had helped nausea, was awaiitng levsin still had ongoing sx with upper abdo pain, stabbing sensation, trouble swallowing solids sometimes, weight going up, appetite is good REPT EGD with VCE-- gastritis, VCE with possible chylous cyst at 1 hr 30 min but looked abn with protuberance and erythema, stippled appearance, uncertain if really polyp or submucosal nodule EGD done 06/2020--with dilation, ridging of esophagus, gastritis HE was referred to [facility] and he was being followed up there, he had repeat EGD, colonoscopy, I don;t have results of bx he was pending a small bowel enteroscopy per the last note I saw but it seemed to have not been ordered so I ended up doing it at [place] on 09/07/20 but it was negative with no masses or worrying lesions noted. 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 I ordered a KUB for him due to abdominal pain and constipation 08/23--moderate stool volume I also ordered a Ct enterogram 12/2021 which only showed a dilated CBD and fatty liver MRCP: CBD dilated, ?filling defects, GB polyps, steatosis, He had ERCP 05/2022, v bulbous ampulla--opened with sphincterotomy EGD: 06/2022: stent removal erosive duodenitis esophagitis MRI L/S--- discogenic changes L5-S1, bulging disc noted INTERIM: HE felt the movantik was working well but it gave him worsening abdominal pain and made him feel like he was in withdrawal he was on 25 mg but had to cut donw to 12.5 mg due to SE he has pain and discomfort in the rectum and pain when passing stool on methadone 40 mg now he ran out of trental --not had for a while going to bathroom once a week on average enemas do help EXAM: GENERAL: The patient is well developed and nontoxic, obese VITAL SIGNS:see workflow HEENT: Nonicteric sclerae, PERRLA, EOMI. Oropharynx clear. Moist mucous membranes. Conjunctivae appear well perfused. No thyroid mass. CHEST: Chest wall is nontender. HEART: Regular rate and rhythm without murmurs. LUNGS: Clear to auscultation bilaterally. ABDOMEN: Soft, positive bowel sounds, tender ruq and lower abdo, no organomegaly, lap scar SKIN: dry skin NEUROLOGIC: Cranial nerves II-XII intact without motor/sensory deficit. MS: walking w stick Assessment & Plan (1) Constipation, 2/2 to inactivity, abdominal positioning, and methdone use, Diabetes 2/ ZHANG wirh severe steatosis on MRI-cont trental PLAN: 1/ sent relistor 2/ re ordered trental [facility] Medical History Chronic allergic rhinitis Diabetes Complex regional pain syndrome I Deficient knowledge of leg surgery home care Sinusitis Pre-op evaluation Methadone use GERD (gastroesophageal reflux disease) History of kidney stones Internal and external bleeding hemorrhoids Severe persistent asthma Sciatica Arthritis Anemia Hiatal hernia Dysphagia Hepatitis C COPD (chronic obstructive pulmonary disease) HTN (hypertension) History of drug abuse Cellulitis Surgical History History of common bile duct surgery History of hemorrhoidectomy Hx of endoscopy History of colonoscopy History of laparoscopy History of appendectomy Family History Father Diabetes Hypertension Mother Hypertension Social History (Reviewed 11/26/23 @ 11:11 by IVETTE Hollis Housing: Apartment Are you a primary wound care coordinator to a significant other at home: No Do you presently have visiting nurse or other home services: No Alcohol intake: never Comment: cramping, relieved partially after using bathroom Patient Tobacco Use Status: Former Tobacco user Quit Date: 2009 Tobacco use type: Cigarette e-Cigarette/Vaping Use: Never Used Second Hand Smoke Exposure: No Substance Use Type: Opiates service: No Current occupational status: unemployed Current occupational exposures/hazards: No Cognitive needs: No Hearing needs: No Vision needs: No Physical Exam Vital Signs: Last Vital Signs Pulse 97 11/26/23 11:10 BP 165/96 H 11/26/23 11:10 BMI result Body Mass Index 35.9 Assessment & Plan Assessment & Plan (1) Chronic constipation: Code(s): K59.09 - Other constipation Plan: (1) Constipation, 2/2 to inactivity, abdominal positioning, and methdone use, Diabetes 2/ ZHANG wirh severe steatosis on MRI-cont trental PLAN: 1/ sent relistor 2/ re ordered trental Medications: New sodium phosphates 19-7 gram/118 mL (Fleet Enema) 118 mL KS BEDTIME PRN 532 mL 0RF constipation Refilled pentoxifylline ER must administer with a meal/food 400 mg PO TID 90 days 270 tabs 3RF ondansetron 4 mg PO Q8H 30 days 90 tabs 2RF Coding Level of Care Code Est Pt Level 3 (58761) Diagnoses Chronic constipation K59.09
[2023-11-26 11:10] VITALS: BP 165/96; PULSE 97; BMI 35.9
== END 2023-11-26 12:44 | disposition home or self-care (01) ==
PROVIDERS: PCP Nurse Practitioner Family; Visit Provider Internal Medicine Gastroenterology
DX: K59.09 Other constipation (principal)
CPT/HCPCS: 99213

== ENCOUNTER 2023-12-13 14:08 | Outpatient (AMB) | payer OTHER, SELFPAY ==
[2023-12-13 14:17] VITALS: BP 140/74; PULSE 110; O2SAT 97; BMI 36.4
--- NOTE | 2023-12-13 14:17 | A.OFFPC_ITS ---
Vital Signs 12/13/23 14:17 Height 5 ft 7 in Weight 232 lb 6 oz BMI 36.4 BP 140/74 H Blood Pressure Location Lt brachial Position Sitting Pulse 110 H Pulse Source Pulse Oximeter Pulse Oximetry (%) 97 Oxygen Delivery Method Room Air Intake Visit Reasons: Follow up elev bp Intake Note: Patient is here for follow up on blood pressure, patient is requesting shower chair, hand held shower had, and grab bar sent to [facility] [phone]. Allergies milk [MILK] Allergy (Severe, Verified 12/13/23 14:20) enterocolitis wheat [WHEAT] Allergy (Intermediate, Verified 12/13/23 14:20) enterocolitis amoxicillin [From AUGMENTIN] Adverse Reaction (Intermediate, Verified 12/13/23 14:20) N/V clavulanic acid [From AUGMENTIN] Adverse Reaction (Intermediate, Verified 12/13/23 14:20) N/V corn Adverse Reaction (Mild, Verified 12/13/23 14:20) Nausea and Vomiting ibuprofen [From MOTRIN] Adverse Reaction (Mild, Verified 12/13/23 14:20) ULCERS naproxen [NAPROXEN] Adverse Reaction (Mild, Verified 12/13/23 14:20) ULCERS NSAIDS (Non-Steroidal Anti-Inflamma [NSAIDS] Adverse Reaction (Mild, Verified 12/13/23 14:20) ULCERS oats Adverse Reaction (Mild, Verified 12/13/23 14:20) Abdominal Pain Medication List - Last Reconciled 12/13/23 by Good Harper MD albuterol sulfate 90 mcg/actuation 2 puffs PO Q6H PRN albuterol sulfate 2.5 mg (3 mL) inhalation Q6H PRN 30 days atorvastatin 20 mg PO BEDTIME bisacodyl (Fleet Bisacodyl) 10 mg (30 mL) TX DAILY PRN 30 days blood sugar diagnostic (FreeStyle Lite Strips) As directed, to test blood sugar 4 times a day blood-glucose meter (FreeStyle Lite Meter kit) DX: E11.9, test blood sugar 2 times a day, duration 999 days cane Daily As directed. 999 days ciprofloxacin-hydrocortisone 0.2-1 % (Cipro HC) 3 drps otic (ear) left BID 7 days crutches (pair of crutches) As directed crutches (pair of crutches) As directed docusate sodium 100 mg PO BID Dupixent Pen (dupilumab) 300 mg (2 mL) subcut Q2W NS fluticasone propion-salmeterol 230-21 mcg/actuation (Advair HFA) 2 puffs inhalation Q12H 30 days ipratropium-albuterol 0.5 mg-3 mg(2.5 mg base)/3 mL 3 mL inhalation Q6H PRN lancets (FreeStyle Lancets) As directed lancets (FreeStyle Lancets) As directed bs checks 2-3 times per day Lantus Solostar U-100 Insulin (insulin glargine) 20 units (0.2 mL) subcut QAM NS lisinopril 20 mg PO DAILY 30 days magnesium hydroxide (Milk of Magnesia) 20 mL PO DAILY magnesium oxide 500 mg PO BID 30 days methadone 53 mg PO DAILY methylnaltrexone (Relistor) 450 mg (3 x 150 mg) PO QAM miscellaneous medical supply quad cane small base montelukast 10 mg PO BEDTIME nebulizers As directed newsmxxr-ishwyw-KZ-thonzonium 3.3-3-10-0.5 mg/mL (Cortisporin-TC) 4 drps otic (ear) left TID 10 days nitroglycerin 0.4%(w/w) (Rectiv) 1 inch TX BID Novolog FlexPen U-100 Insulin (insulin aspart U-100) 30 units in AM prior to breakfast and 20 uinits prior to lunch subcutaneously 20 units before dinner 3 times a day; NS ondansetron 4 mg PO Q8H 30 days peg-electrolyte soln 420 gram 240 mL PO Q10M pen needle, diabetic (BD Lynda 2nd Gen Pen Needle) DIRECTED INJECTS 4 X/DAY pentoxifylline ER 400 mg PO TID 90 days polyethylene glycol 3350 (Miralax) 17 grams PO DAILY PRN prednisone PO daily; Take 6 tabs daily x 3 days, then 5 tabs x 3 days, then 4 tabs x 3 days, then 3 tabs x 3 days, then 2 tabs daily x 3 days, then 1 tab x 3 days to complete. 18 days simethicone 125 mg PO TID PRN sodium phosphates 19-7 gram/118 mL (Fleet Enema) 118 mL TX BEDTIME PRN Tobacco use date assessed: 12/13/23 Dental Screening Dental Screen Date: 09/21/23 HPI Follow up elev bp HPI Details 53 y/o male presents to f/u [facility] itions including his blood pressures. Blood pressure today 140/74, 110p. Has been elevated before in previous visits. He is on lisinopril 20mg daily. Pt has complaints of L hip pain and had seen Lee Rivera about this. FORMERLY [facility] Medical History Chronic allergic rhinitis Diabetes Complex regional pain syndrome I Deficient knowledge of leg surgery home care Sinusitis Pre-op evaluation Methadone use GERD (gastroesophageal reflux disease) History of kidney stones Internal and external bleeding hemorrhoids Severe persistent asthma Sciatica Arthritis Anemia Hiatal hernia Dysphagia Hepatitis C COPD (chronic obstructive pulmonary disease) HTN (hypertension) History of drug abuse Cellulitis Surgical History History of common bile duct surgery History of hemorrhoidectomy Hx of endoscopy History of colonoscopy History of laparoscopy History of appendectomy Family History Father Diabetes Hypertension Mother Hypertension Social History Housing: Apartment Are you a primary hospice care sales consultant to a significant other at home: No Do you presently have visiting nurse or other home services: No Alcohol intake: never Comment: cramping, relieved partially after using bathroom Patient Tobacco Use Status: Former Tobacco user Quit Date: 2009 Tobacco use type: Cigarette e-Cigarette/Vaping Use: Never Used Second Hand Smoke Exposure: No Substance Use Type: Opiates service: No Current occupational status: unemployed Current occupational exposures/hazards: No Cognitive needs: No Hearing needs: No Vision needs: No Questionnaire Thrive Questionnaire Date Thrive assessed: 11/17/22 CORNELIUS-7 AMB Questionnaire CORNELIUS-7 Date CORNELIUS - 7 assessed: 11/17/22 Source: Developed by Drs. Sigifredo Matson, Sangeeta Sandy, Ty Davis and colleagues, with an educational frida from [employer]. Physical exam (Primary Care) Vital Signs: Last Vital Signs Pulse 110 H 12/13/23 14:17 BP 140/74 H 12/13/23 14:17 Pulse Ox 97 12/13/23 14:17 Oxygen Delivery Method Room Air 12/13/23 14:17 BMI result Body Mass Index 36.4 Tobacco/Smoking Status: Tobacco use Status Tobacco use date assessed 12/13/23 12/13/23 14:24 Patient Tobacco Use Status Former Tobacco user 12/13/23 14:24 Tobacco use type Cigarette 12/13/23 14:24 e-Cigarette/Vaping Use Never Used 12/13/23 14:24 Thrive Assessment: Date of Thrive Assessment Date Thrive assessed 11/17/22 12/13/23 14:24 Assessment and Plan Assessment & Plan (1) HTN (hypertension): Code(s): I10 - Essential (primary) hypertension Plan: Blood?pressure?is?frequently?high.??Goal?is?less?than?140/90 Will?change?lisinopril?20?mg?daily?to?lisinopril-hydrochlorothiazide?20/12.5 Hydrate?well Follow-up?in?a?month?with?PCP (2) Left hip pain: Code(s): M25.552 - Pain in left hip Plan: Lumbar?radiculitis?and?left?hip?pain. He?had?seen?ortho And?would?like?a?2nd?opinion. Has?had?x-rays?and?MRI Only?mild?joint?space?narrowing?on?x-rays Ortho?had?recommended?physical?therapy?but?patient?says?this?did?not?help Referred?him?to?Ortho?at[facility] (3) Pain of lower extremity: Code(s): M79.606 - Pain in leg, unspecified Plan: Complex?regional?pain?syndrome?and?lumbar?radiculopathy?as?well?as?bilateral?low er?extremity?neuropathy Will?get?him?grab?bars?and?shower?chair?as?well?as?hand- held?shower?head?for?safety?in?the?shower Orders: Referrals Orthopedics Referral M25.552 - Pain in left hip, M54.16 - Radiculopathy, lumbar region Medications: New Grab bar As directed, 999 days 1 ea 3RF G57.90 - Unspecified mononeuropathy of unspecified lower limb, M25.552 - Pain in left hip, M54.16 - Radiculopathy, lumbar region, R26.81 - Unsteadiness on feet miscellaneous medical supply Hand-held?shower?head,?As directed, 999 days 1 ea 0RF G57.90 - Unspecified mononeuropathy of unspecified lower limb, M25.552 - Pain in left hip, M54.16 - Radiculopathy, lumbar region, R26.81 - Unsteadiness on feet lisinopril-hydrochlorothiazide 20-12.5 mg 1 tab PO DAILY 90 days 90 tabs 2RF Shower Chair As directed 1 ea 0RF miscellaneous medical supply Toilet?see?raised,?As directed, 999 days 1 ea 0RF G57.90 - Unspecified mononeuropathy of unspecified lower limb, M25.552 - Pain in left hip, M54.16 - Radiculopathy, lumbar region, R20.2 - Paresthesia of skin, R26.81 - Unsteadiness on feet, R52 - Pain, unspecified Discontinued lisinopril Discontinued Reason: Doctor's Order 20 mg PO DAILY 30 days 30 tabs 3RF Coding Level of Care Code Est Pt Level 4 (33558) Diagnoses HTN (hypertension) I10 Left hip pain M25.552 Pain of lower extremity M79.606
== END 2023-12-13 14:41 | disposition home or self-care (01) ==
PROVIDERS: PCP Nurse Practitioner Family; Visit Provider Family Medicine
DX: I10 Essential (primary) hypertension (principal); M25.552 Pain in left hip; M79.606 Pain in leg, unspecified
CPT/HCPCS: 99214

== ENCOUNTER 2024-01-25 12:53 | Outpatient (AMB) | payer OTHER, SELFPAY ==
--- NOTE | 2024-01-25 12:55 | MHC.OFFVIS ---
Vital Signs 01/25/24 12:59 Height 5 ft 7 in Weight 240 lb 8.389 oz BMI 37.7 BP 160/90 H Blood Pressure Location Rt brachial Position Sitting Pulse 102 H Pulse Source Pulse Oximeter Intake Visit Reasons: T2DM Intake Note: Patient present today to follow up on Type 2 Diabetes Mellitus. Patient receives DME supplies through: [employer] Last Diabetic Eye exam: Within the year Last Podiatry Visit: Last year, has an appointment on 01/29/2024. Random Glucose: 249 mg/dl HgA1C: 7.9% Mobility Architect Manager Required: No Accompanied by: Self / Same As Patient Allergies milk [MILK] Allergy (Severe, Verified 01/25/24 13:00) enterocolitis wheat [WHEAT] Allergy (Intermediate, Verified 01/25/24 13:00) enterocolitis amoxicillin [From AUGMENTIN] Adverse Reaction (Intermediate, Verified 01/25/24 13:00) N/V clavulanic acid [From AUGMENTIN] Adverse Reaction (Intermediate, Verified 01/25/24 13:00) N/V corn Adverse Reaction (Mild, Verified 01/25/24 13:00) Nausea and Vomiting ibuprofen [From MOTRIN] Adverse Reaction (Mild, Verified 01/25/24 13:00) ULCERS naproxen [NAPROXEN] Adverse Reaction (Mild, Verified 01/25/24 13:00) ULCERS NSAIDS (Non-Steroidal Anti-Inflamma [NSAIDS] Adverse Reaction (Mild, Verified 01/25/24 13:00) ULCERS oats Adverse Reaction (Mild, Verified 01/25/24 13:00) Abdominal Pain Medication List - Last Reconciled 01/25/24 by Suzie Motta PA-C albuterol sulfate 90 mcg/actuation 2 puffs PO Q6H PRN albuterol sulfate 2.5 mg (3 mL) inhalation Q6H PRN 30 days atorvastatin 20 mg PO BEDTIME bisacodyl (Fleet Bisacodyl) 10 mg (30 mL) DC DAILY PRN 30 days blood sugar diagnostic (FreeStyle Lite Strips) As directed, to test blood sugar 4 times a day blood-glucose meter (FreeStyle Lite Meter kit) DX: E11.9, test blood sugar 2 times a day, duration 999 days cane Daily As directed. 999 days ciprofloxacin-hydrocortisone 0.2-1 % (Cipro HC) 3 drps otic (ear) left BID 7 days crutches (pair of crutches) As directed crutches (pair of crutches) As directed docusate sodium 100 mg PO BID Dupixent Pen (dupilumab) 300 mg (2 mL) subcut Q2W NS fluticasone propion-salmeterol 230-21 mcg/actuation (Advair HFA) 2 puffs inhalation Q12H 30 days Grab bar As directed, 999 days ipratropium-albuterol 0.5 mg-3 mg(2.5 mg base)/3 mL 3 mL inhalation Q6H PRN lancets (FreeStyle Lancets) As directed lancets (FreeStyle Lancets) As directed bs checks 2-3 times per day Lantus Solostar U-100 Insulin (insulin glargine) 20 units (0.2 mL) subcut QAM NS magnesium hydroxide (Milk of Magnesia) 20 mL PO DAILY magnesium oxide 500 mg PO BID 30 days methadone 53 mg PO DAILY methylnaltrexone (Relistor) 450 mg (3 x 150 mg) PO QAM miscellaneous medical supply Hand-held?shower?head,?As directed, 999 days miscellaneous medical supply quad cane small base miscellaneous medical supply Toilet?see?raised,?As directed, 999 days montelukast 10 mg PO BEDTIME nebulizers As directed zdrmlawk-toljfl-CV-thonzonium 3.3-3-10-0.5 mg/mL (Cortisporin-TC) 4 drps otic (ear) left TID 10 days nitroglycerin 0.4%(w/w) (Rectiv) 1 inch DC BID Novolog FlexPen U-100 Insulin (insulin aspart U-100) 30 units in AM prior to breakfast and 20 uinits prior to lunch subcutaneously 20 units before dinner 3 times a day; NS ondansetron 4 mg PO Q8H 30 days peg-electrolyte soln 420 gram 240 mL PO Q10M pen needle, diabetic (BD Lynda 2nd Gen Pen Needle) DIRECTED INJECTS 4 X/DAY pentoxifylline ER 400 mg PO TID 90 days polyethylene glycol 3350 (Miralax) 17 grams PO DAILY PRN Shower Chair As directed simethicone 125 mg PO TID PRN sodium phosphates 19-7 gram/118 mL (Fleet Enema) 118 mL DC BEDTIME PRN HPI HPI T2DM: Details: Patient is a 54-year-old male with a significant past medical history of hypertension, type 2 diabetes, ED, dyslipidemia, CKD, chronic pain syndrome, hep C, COPD, methadone use presenting today for a diabetic follow-up. Endo: His last A1c was 7.9%. He is on Lantus 20 units at night, NovoLog t.i.d. 20-25 units. He states that he just restarted taking this last week. He has tried metformin but did not tolerate. He has tried trulicity but did not tolerate due to vomiting. -Last eye exam: end of Sep 2023- states that there were some findings (does not recall name of eye issues) and is seeing retina specialist -Last foot exam: Seeing podiatry next week -CGM: in target 22%, high 55%, very high 23% -Hypoglycemic events: denies any -Hyperglycemic events: Often CV: blood pressure in the office is 160/90. He is only taking the lisinopril 20 mg. He recently was told to increase lisinopril but he refused and refused to start on lisinopril/hydrochlorothiazide. He has been tolerant of atorvastatin 20 mg. -he states that trying new things makes him uncomfortable. He would be willing to increase the lisinopril. He does not want to double the dose but would be willing to go up to 30 mg. GI: Hep C was treated successfully 5 years ago. Follows with GI. FOR[facility]LY [facility] Medical History (Updated 01/25/24 @ 13:23 by Suzie Motta PA-C) Dyslipidemia Uncontrolled type 2 diabetes mellitus with hyperglycemia, with long-term current use of insulin Chronic allergic rhinitis Diabetes Complex regional pain syndrome I Deficient knowledge of leg surgery home care Sinusitis Pre-op evaluation Methadone use GERD (gastroesophageal reflux disease) History of kidney stones Internal and external bleeding hemorrhoids Severe persistent asthma Sciatica Arthritis Anemia Hiatal hernia Dysphagia Hepatitis C COPD (chronic obstructive pulmonary disease) HTN (hypertension) History of drug abuse Cellulitis Surgical History History of common bile duct surgery History of hemorrhoidectomy Hx of endoscopy History of colonoscopy History of laparoscopy History of appendectomy Family History Father Diabetes Hypertension Mother Hypertension Social History Housing: Apartment Are you a primary animal care worker to a significant other at home: No Do you presently have visiting nurse or other home services: No Alcohol intake: never Comment: cramping, relieved partially after using bathroom Patient Tobacco Use Status: Former Tobacco user Quit Date: 2009 Tobacco use type: Cigarette e-Cigarette/Vaping Use: Never Used Second Hand Smoke Exposure: No Substance Use Type: Opiates service: No Current occupational status: unemployed Current occupational exposures/hazards: No Cognitive needs: No Hearing needs: No Vision needs: No Physical Exam Vital Signs: Last Vital Signs Pulse 102 H 01/25/24 12:59 BP 160/90 H 01/25/24 12:59 BMI result Body Mass Index 37.7 Const Orientation/consciousness: patient oriented x3 HEENT Ears: hearing grossly normal bilaterally Neck Thyroid: Thyroid normal Lymphatic: no lymphadenopathy noted Resp Auscultation: clear to auscultation bilaterally Cardio Rate: regular rate Rhythm: regular rhythm Heart sounds: S1 normal heart sound present and S2 normal heart sound present Skin General skin exam: no rashes or lesions noted Neuro General: patient oriented x3, gait normal and no focal motor deficits Extrem Other: Dp pulses 2+ bilaterally. Sensation intact. Skin intact. Results AMB Hemoglobin A1c AMB Hemoglobin A1c 7.9 % Last Edit by DAIN Oropeza on 01/25/24 13:19 Results Reviewed Results Reviewed: Laboratory Tests 08/20/23 10/01/23 16:58 13:04 Glucose (Clinic) 154 H Hgb A1c (Clinic) 6.6 H Assessment & Plan Assessment & Plan (1) Uncontrolled type 2 diabetes mellitus with hyperglycemia, with long-term current use of insulin: Code(s): E11.65 - Type 2 diabetes mellitus with hyperglycemia; Z79.4 - [facility] (current) use of insulin Category: Medical Plan: Will continue current regimen. Return 1 month for evaluation. We discussed possibly trialing mounjaro. Overdue for labs. Order today. (2) HTN (hypertension): Code(s): I10 - Essential (primary) hypertension Category: Medical Plan: Increased lisinopril. Discussed that this may not be enough to get his blood pressure at goal. I did write down other blood pressure medications for as he states that he would be more likely to take something if he researched the drugs. Will follow-up in 1 month. (3) Dyslipidemia: Code(s): E78.5 - Hyperlipidemia, unspecified Category: Medical Plan: Overdue for labs. Continue atorvastatin. Labs ordered. Will follow up pending test results. Orders: Orders Hemoglobin A1c Today E11.65 - Type 2 diabetes mellitus with hyperglycemia, E78.5 - Hyperlipidemia, unspecified, I10 - Essential (primary) hypertension, Z79.4 - assistant terminal manager (current) use of insulin Microalbumin, Random (w Creat) Today E11.65 - Type 2 diabetes mellitus with hyperglycemia, E78.5 - Hyperlipidemia, unspecified, I10 - Essential (primary) hypertension, Z79.4 - assistant terminal manager (current) use of insulin AMB Hemoglobin A1c Today E11.9 - Type 2 diabetes mellitus without complications Comprehensive [place]. Panel Fast Today E11.65 - Type 2 diabetes mellitus with hyperglycemia, E78.5 - Hyperlipidemia, unspecified, I10 - Essential (primary) hypertension, Z79.4 - M[facility] (current) use of insulin Lipid Panel Today E11.65 - Type 2 diabetes mellitus with hyperglycemia, E78.5 - Hyperlipidemia, unspecified, I10 - Essential (primary) hypertension, Z79.4 - MCC (current) use of insulin Medications: New lisinopril 30 mg PO DAILY 90 tabs 0RF Coding Level of Care Code Est Pt Level 4 (34337) Complex EM visit Add On G2211 Diagnoses Uncontrolled type 2 diabetes mellitus with hyperglycemia, with long-term current use of insulin E11.65; Z79.4 HTN (hypertension) I10 Dyslipidemia E78.5
[2024-01-25 12:59] VITALS: BP 160/90; PULSE 102; BMI 37.7
[2024-01-30 11:12] LABS: Glucose, Whole Blood 246 mg/dL (60-115)
== END 2024-01-25 13:28 | disposition home or self-care (01) ==
PROVIDERS: Visit Provider Physician Assistant
DX: E11.65 Type 2 diabetes mellitus with hyperglycemia (principal); Z79.4 Long term (current) use of insulin; I10 Essential (primary) hypertension; E78.5 Hyperlipidemia, unspecified; E11.9 Type 2 diabetes mellitus without complications
CPT/HCPCS: 99214; G2211

== ENCOUNTER → 2024-01-25 12:53 | Outpatient (BNVA) | payer OTHER, SELFPAY | PROVIDERS: Visit Provider Physician Assistant | DX: E11.65 Type 2 diabetes mellitus with hyperglycemia (principal); I10 Essential (primary) hypertension; E78.5 Hyperlipidemia, unspecified; Z79.4 Long term (current) use of insulin | CPT/HCPCS: 82947; 83036; 99212 ==

== ENCOUNTER 2024-02-25 09:04 | Outpatient (REF) | payer OTHER, SELFPAY ==
[2024-02-25 12:46] LABS: Estimated Average Glucose 169 mg/dL; Hemoglobin A1c % 7.5 % (<6.0)
[2024-02-25 12:57] LABS: Alanine Aminotransferase 63 U/L (0-40); Albumin Level 4.4 g/dL (3.5-5.0); Alkaline Phosphatase 121 U/L (39-117); Anion Gap 19 (12-20); Aspartate Amino Transferase 59 U/L (5-37); Bilirubin Total 0.5 mg/dL (0.0-1.0); Blood Urea Nitrogen 13 mg/dL (9-16); Calcium 9.6 mg/dL (8.4-10.2); Carbon Dioxide 26 mmol/L (22-29); Chloride 100 mmol/L (96-108); Cholesterol 178 mg/dL (<200); Estimated Glomerular Filt Rate > 60; Glucose Fasting 230 mg/dL (60-99); HDL Cholesterol 35 mg/dL (>40); LDL Cholesterol Calculated 92 mg/dL (<100); Potassium 4.5 mmol/L (3.3-5.1); Sodium 140 mmol/L (135-145); Total Protein 7.9 g/dL (6.5-8.0); Triglycerides 258 mg/dL (<150)
[2024-02-25 13:11] LABS: Creatinine Urine 154.91 mg/dL; Microalbum/Creatinine Ratio Ur 19.3 ug/mg cr (<30)
== END 2024-02-25 09:05 | disposition home or self-care (01) ==
LOC: HO.WFDLDS 09:04
PROVIDERS: Nurse Practitioner Family; Visit Provider Physician Assistant
DX: E11.65 Type 2 diabetes mellitus with hyperglycemia (principal); E78.5 Hyperlipidemia, unspecified; I10 Essential (primary) hypertension; Z79.4 Long term (current) use of insulin
CPT/HCPCS: 36415; 80053; 80061; 82043; 82570; 82947; 83036; 99212

== ENCOUNTER 2024-02-25 12:47 | Outpatient (AMB) | payer OTHER, SELFPAY ==
--- NOTE | 2024-02-25 12:53 | A.OFFVIS_ITS ---
Vital Signs 02/25/24 13:03 Height 5 ft 7 in Weight 240 lb 7.331 oz BMI 37.7 BP 140/90 H Pulse 107 H Intake Visit Reasons: dm check, bp check/CONFIRMED Intake Note: Patient present today to follow up on Type 2 Diabetes Mellitus. Patient receives DME supplies through: [employer] Last Diabetic Eye exam: 09/2023 Last Podiatry Visit: Needs a new referral. 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 Required: No Accompanied by: Self / Same As Patient Allergies milk [MILK] Allergy (Severe, Verified 01/25/24 13:00) enterocolitis wheat [WHEAT] Allergy (Intermediate, Verified 01/25/24 13:00) enterocolitis amoxicillin [From AUGMENTIN] Adverse Reaction (Intermediate, Verified 01/25/24 13:00) N/V clavulanic acid [From AUGMENTIN] Adverse Reaction (Intermediate, Verified 01/25/24 13:00) N/V corn Adverse Reaction (Mild, Verified 01/25/24 13:00) Nausea and Vomiting ibuprofen [From MOTRIN] Adverse Reaction (Mild, Verified 01/25/24 13:00) ULCERS naproxen [NAPROXEN] Adverse Reaction (Mild, Verified 01/25/24 13:00) ULCERS NSAIDS (Non-Steroidal Anti-Inflamma [NSAIDS] Adverse Reaction (Mild, Verified 01/25/24 13:00) ULCERS oats Adverse Reaction (Mild, Verified 01/25/24 13:00) Abdominal Pain Medication List - Last Reconciled 02/25/24 by Suzie Motta PA-C albuterol sulfate 90 mcg/actuation 2 puffs PO Q6H PRN albuterol sulfate 2.5 mg (3 mL) inhalation Q6H PRN 30 days atorvastatin 20 mg PO BEDTIME bisacodyl (Fleet Bisacodyl) 10 mg (30 mL) NH DAILY PRN 30 days blood sugar diagnostic (FreeStyle Lite Strips) As directed, to test blood sugar 4 times a day blood-glucose meter (FreeStyle Lite Meter kit) DX: E11.9, test blood sugar 2 times a day, duration 999 days cane Daily As directed. 999 days ciprofloxacin-hydrocortisone 0.2-1 % (Cipro HC) 3 drps otic (ear) left BID 7 days crutches (pair of crutches) As directed crutches (pair of crutches) As directed docusate sodium 100 mg PO BID Dupixent Pen (dupilumab) 300 mg (2 mL) subcut Q2W NS fluticasone propion-salmeterol 230-21 mcg/actuation (Advair HFA) 2 puffs inhalation Q12H 30 days Grab bar As directed, 999 days ipratropium-albuterol 0.5 mg-3 mg(2.5 mg base)/3 mL 3 mL inhalation Q6H PRN lancets (FreeStyle Lancets) As directed lancets (FreeStyle Lancets) As directed bs checks 2-3 times per day Lantus Solostar U-100 Insulin (insulin glargine) 20 units (0.2 mL) subcut QAM NS lisinopril 30 mg PO DAILY magnesium hydroxide (Milk of Magnesia) 20 mL PO DAILY magnesium oxide 500 mg PO BID 30 days methadone 53 mg PO DAILY methylnaltrexone (Relistor) 450 mg (3 x 150 mg) PO QAM miscellaneous medical supply Hand-held?shower?head,?As directed, 999 days miscellaneous medical supply quad cane small base miscellaneous medical supply Toilet?see?raised,?As directed, 999 days montelukast 10 mg PO BEDTIME nebulizers As directed bqnmzdlj-nqbpib-AQ-thonzonium 3.3-3-10-0.5 mg/mL (Cortisporin-TC) 4 drps otic (ear) left TID 10 days nitroglycerin 0.4%(w/w) (Rectiv) 1 inch NH BID Novolog FlexPen U-100 Insulin (insulin aspart U-100) 30 units in AM prior to breakfast and 20 uinits prior to lunch subcutaneously 20 units before dinner 3 times a day; NS ondansetron 4 mg PO Q8H 30 days peg-electrolyte soln 420 gram 240 mL PO Q10M pen needle, diabetic (BD Lynda 2nd Gen Pen Needle) DIRECTED INJECTS 4 X/DAY pentoxifylline ER 400 mg PO TID 90 days polyethylene glycol 3350 (Miralax) 17 grams PO DAILY PRN Shower Chair As directed simethicone 125 mg PO TID PRN sodium phosphates 19-7 gram/118 mL (Fleet Enema) 118 mL NH BEDTIME PRN HPI HPI dm check, bp check/CONFIRMED: Details: Patient is a 54-year-old male with a significant past medical history of hypertension, type 2 diabetes, ED, dyslipidemia, CKD, chronic pain syndrome, hep C, COPD, methadone use presenting today for a diabetic follow-up. Endo: His last A1c was 7.9%. He is on Lantus 20 units at night, NovoLog t.i.d. 20-25 units. He states that he just restarted taking this last week. He has tried metformin but did not tolerate. He has tried trulicity but did not tolerate due to vomiting. His cgm from today shows usage 63%, avg blood sugar is 224, 8.7%, with variability 22.8%. He is very high 31%, 50% high, 19%, 0% low. -Last eye exam: end of Sep 2023- states that there were some findings (does not recall name of eye issues) and is seeing retina specialist -Last foot exam: Seeing podiatry next week, needs new referral. Wants to see Dr. Eastman. CV: blood pressure in the office is 150/90. He is taking the lisinopril 30 mg. He does not want to adjust the medications. GI: Hep C was treated successfully 5 years ago. Follows with GI. [facility] Medical History (Updated 02/25/24 @ 13:52 by Suzie Motta PA-C) Dyslipidemia Uncontrolled type 2 diabetes mellitus with hyperglycemia, with long-term current use of insulin Chronic allergic rhinitis Diabetes Complex regional pain syndrome I Deficient knowledge of leg surgery home care Sinusitis Pre-op evaluation Methadone use GERD (gastroesophageal reflux disease) History of kidney stones Internal and external bleeding hemorrhoids Severe persistent asthma Sciatica Arthritis Anemia Hiatal hernia Dysphagia Hepatitis C COPD (chronic obstructive pulmonary disease) HTN (hypertension) History of drug abuse Cellulitis Surgical History History of common bile duct surgery History of hemorrhoidectomy Hx of endoscopy History of colonoscopy History of laparoscopy History of appendectomy Family History Father Diabetes Hypertension Mother Hypertension Social History Housing: Apartment Are you a primary medical care administrator to a significant other at home: No Do you presently have visiting nurse or other home services: No Alcohol intake: never Comment: cramping, relieved partially after using bathroom Patient Tobacco Use Status: Former Tobacco user Tobacco use type: Cigarette e-Cigarette/Vaping Use: Never Used Second Hand Smoke Exposure: No Substance Use Type: Opiates service: No Current occupational status: unemployed Current occupational exposures/hazards: No Cognitive needs: No Hearing needs: No Vision needs: No Physical Exam Vital Signs: Last Vital Signs Pulse 107 H 02/25/24 13:03 BP 140/90 H 02/25/24 13:03 BMI result Body Mass Index 37.7 Const Orientation/consciousness: patient oriented x3 HEENT Ears: hearing grossly normal bilaterally Neck Thyroid: Thyroid normal Lymphatic: no lymphadenopathy noted Resp Auscultation: clear to auscultation bilaterally Cardio Rate: regular rate Rhythm: regular rhythm Heart sounds: S1 normal heart sound present and S2 normal heart sound present Skin General skin exam: no rashes or lesions noted Neuro General: patient oriented x3, gait normal and no focal motor deficits Extrem Other: Dp pulses 2+ bilaterally. Sensation intact. Skin intact. 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 Start Mounjaro. Discussed the importance of compliance. We reviewed signs and symptoms of hyper and hypoglycemia. Glucose tabs order to use prn and discussed rules of 15s. advised 15 g carb and recheck glucose 15 min later. Upgraded sensor to the James 3. (2) Dyslipidemia: Code(s): E78.5 - Hyperlipidemia, unspecified Category: Medical Plan: We reviewed cholesterol today in the office. We discussed that his triglycerides are elevated above goal. He will work on reducing his carbohydrate intake and food. He want to the (3) HTN (hypertension): Code(s): I10 - Essential (primary) hypertension Category: Medical Qualifiers: Hypertension type: primary hypertension Qualified Code(s): I10 - Essential (primary) hypertension Plan: Discussed that his blood pressure is not yet echo. At our last visit I did increase his lisinopril and he states that he wants to work on his diet. If not lower at our next visit he will consider letting me added additional medication. He is aware that having uncontrolled hypertension does increase his risk of heart attack and stroke. 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 Referrals Podiatry Referral E11.65 - Type 2 diabetes mellitus with hyperglycemia, Z79.4 - care home (current) use of insulin Medications: New tirzepatide (Mounjaro) 2.5 mg (0.5 mL) subcut QWEEK 4 weeks 2 mL 3RF glucose (Dex4 Glucose) until symptoms of low blood sugar are controlled 16 grams (4 x 4 gram) PO Q15M PRN 90 tabs 0RF hypoglycemia blood-glucose sensor (FreeStyle James 3 Sensor device) Apply every 14 days As directed 2 ea 11RF E11.9 - Type 2 diabetes mellitus without complications, Z79.4 - rat exterminator (current) use of insulin blood-glucose meter,continuous (FreeStyle James 3 [place]) As directed 1 ea 0RF Changed From Lantus Solostar U-100 Insulin (insulin glargine) 20 units (0.2 mL) subcut QAM 15 mL 4RF NS To Lantus Solostar U-100 Insulin (insulin glargine) 25 units (0.25 mL) subcut QAM 15 mL 4RF NS Coding Level of Care Code Est Pt Level 4 (53469) Complex EM visit Add On G2211 Diagnoses Uncontrolled type 2 diabetes mellitus with hyperglycemia, with long-term current use of insulin E11.65; Z79.4 Dyslipidemia E78.5 Primary hypertension I10 Hypertension type: primary hypertension
[2024-02-25 13:03] VITALS: BP 140/90; PULSE 107; BMI 37.7
[2024-02-25 13:10] LABS: Glucose, Whole Blood 288 mg/dL (60-115)
== END 2024-02-25 13:35 | disposition home or self-care (01) ==
PROVIDERS: Visit Provider Physician Assistant
DX: E11.65 Type 2 diabetes mellitus with hyperglycemia (principal); Z79.4 Long term (current) use of insulin; E78.5 Hyperlipidemia, unspecified; I10 Essential (primary) hypertension
CPT/HCPCS: 99214; G2211

== ENCOUNTER 2024-03-04 14:46 | Outpatient (AMB) | payer OTHER, SELFPAY ==
--- NOTE | 2024-03-04 15:02 | A.OFFVIS_ITS ---
Intake Vital Signs 03/04/24 15:02 Weight 245 lb Intake Visit Reasons: DM/confirmed Manager Emergency Department Required: No Accompanied by: Self / Same As Patient Allergies milk [MILK] Allergy (Severe, Verified 01/25/24 13:00) enterocolitis wheat [WHEAT] Allergy (Intermediate, Verified 01/25/24 13:00) enterocolitis amoxicillin [From AUGMENTIN] Adverse Reaction (Intermediate, Verified 01/25/24 13:00) N/V clavulanic acid [From AUGMENTIN] Adverse Reaction (Intermediate, Verified 01/25/24 13:00) N/V corn Adverse Reaction (Mild, Verified 01/25/24 13:00) Nausea and Vomiting ibuprofen [From MOTRIN] Adverse Reaction (Mild, Verified 01/25/24 13:00) ULCERS naproxen [NAPROXEN] Adverse Reaction (Mild, Verified 01/25/24 13:00) ULCERS NSAIDS (Non-Steroidal Anti-Inflamma [NSAIDS] Adverse Reaction (Mild, Verified 01/25/24 13:00) ULCERS oats Adverse Reaction (Mild, Verified 01/25/24 13:00) Abdominal Pain HPI Comprehensive Diabetes Asmnt Most Recent Diabetes Results: Hemoglobin A1c 4.9 % 04/25/19 Microalb/Creat Ratio 19.3 ug/mg cr (<30) 02/25/24 Cholesterol 178 mg/dL (<200) 02/25/24 HDL Cholesterol 35 mg/dL (>40) L 02/25/24 Triglycerides 258 mg/dL (<150) H 02/25/24 Creatinine 0.88 mg/dL (0.5-1.4) 02/25/24 Blood Urea Nitrogen 13 mg/dL (9-16) 02/25/24 Sodium 140 mmol/L (135-145) 02/25/24 Potassium 4.5 mmol/L (3.3-5.1) 02/25/24 Chloride 100 mmol/L (96-108) 02/25/24 Carbon Dioxide 26 mmol/L (22-29) 02/25/24 Calcium 9.6 mg/dL (8.4-10.2) 02/25/24 AST 59 U/L (5-37) H 02/25/24 ALT 63 U/L (0-40) H 02/25/24 Total Protein 7.9 g/dL (6.5-8.0) 02/25/24 Albumin 4.4 g/dL (3.5-5.0) 02/25/24 [facility] Medical History (Updated 02/25/24 @ 13:52 by Suzie Motta PA-C) Dyslipidemia Uncontrolled type 2 diabetes mellitus with hyperglycemia, with long-term current use of insulin Chronic allergic rhinitis Diabetes Complex regional pain syndrome I Deficient knowledge of leg surgery home care Sinusitis Pre-op evaluation Methadone use GERD (gastroesophageal reflux disease) History of kidney stones Internal and external bleeding hemorrhoids Severe persistent asthma Sciatica Arthritis Anemia Hiatal hernia Dysphagia Hepatitis C COPD (chronic obstructive pulmonary disease) HTN (hypertension) History of drug abuse Cellulitis Surgical History History of common bile duct surgery History of hemorrhoidectomy Hx of endoscopy History of colonoscopy History of laparoscopy History of appendectomy Family History Father Diabetes Hypertension Mother Hypertension Social History Housing: Apartment Are you a primary residential care officer to a significant other at home: No Do you presently have visiting nurse or other home services: No Alcohol intake: never Comment: cramping, relieved partially after using bathroom Patient Tobacco Use Status: Former Tobacco user Tobacco use type: Cigarette e-Cigarette/Vaping Use: Never Used Second Hand Smoke Exposure: No Substance Use Type: Opiates service: No Current occupational status: unemployed Current occupational exposures/hazards: No Cognitive needs: No Hearing needs: No Vision needs: No Assessment & Plan Assessment & Plan (1) Uncontrolled type 2 diabetes mellitus with hyperglycemia, with long-term current use of insulin: Code(s): E11.65 - Type 2 diabetes mellitus with hyperglycemia; 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 Patient questions/concerns patient's last A1c on 01/25/2024 7.9%, up from 6.7 in August 2023. Patient expressed desire to improve glucose control, he has started on Mounjaro 2.5 mg, reports he is feeling slightly nauseous, and experiencing headaches. Discussed with patient the importance of not over eating when using Mounjaro to reduce GI side effects. Patient is also on Lantus 25 units daily NovoLog 20-30 units before meals The patient met all learning objectives and was able to verbalize understanding and provide teach back of education topics discussed . The patient was provided with the opportunity to ask questions and all questions were answered. Topics covered in today?s session included: Medications (If applicable) * Name of medication? * Dosing/administration instructions? * Mechanism of action? * Potential side effects? * Potential adverse reaction and appropriate treatment? * Review onset, peak, duration Assess for concerns re: insurance coverage, cost, barriers to compliance Insulin/Injectables (If applicable) * Storage/care of insulin?? * Injection sites? * Site rotation? * Onset, peak, duration * Drawing up insulin? * Injecting insulin/other injectables? * Sharps disposal Continuous blood glucose monitoring (if applicable) Hypoglycemia and Hyperglycemia * Signs and symptoms? * Causes?? * Treatment? * Preventing hypoglycemia? * When to seek medical attention * Blood glucose targets and how you feel when your blood glucose is in and out of your target ranges. * Monitoring and knowing your A1C. * What can make blood glucose go up and down and preventing high and low blood glucose. * Review of blood sugar targets in expected goal range and outside of expected goal range. * Problem solving and preventing hyper/hypoglycemia. * Sick day management of diabetes. * Using blood sugar results in decision making process in managing diabetes. ?Patient was receptive to information provided and participated in the discussion. Asked?appropriate questions and demonstrated good understanding of the topics discussed.? ? Educational Materials: The patient was provided with the following written educational materials: Target Goal, rule of 15s handouts Smart Goal: Patient will use rule of 15s if he experiences episodes of hypoglycemia Patient Response to instructions: Comprehension of Instructions: fair Readiness to make changes:? good How confident they feel about making changes:positive Portions of this note were created using voice recognition software, please excuse any words or phrases that may have been misinterpreted. Patient Instructions: Use rule of 15s to treat any episodes of hypoglycemia Contact provider or Diabetes Education nurse if episodes of hypoglycemia increase Follow-up with medical educator in 2 months Coding Level of Care Code Est Pt Level 1 (60994) Diagnoses Uncontrolled type 2 diabetes mellitus with hyperglycemia, with long-term current use of insulin E11.65; Z79.4
== END 2024-03-04 15:25 | disposition home or self-care (01) ==
PROVIDERS: Visit Provider Registered Nurse Diabetes Educator
DX: E11.65 Type 2 diabetes mellitus with hyperglycemia (principal); Z79.4 Long term (current) use of insulin

== ENCOUNTER → 2024-03-04 14:46 | Outpatient (BNVA) | payer OTHER, SELFPAY | PROVIDERS: Visit Provider Registered Nurse Diabetes Educator | DX: E11.65 Type 2 diabetes mellitus with hyperglycemia (principal); Z71.89 Other specified counseling; Z79.4 Long term (current) use of insulin | CPT/HCPCS: 99211 ==

== ENCOUNTER 2024-03-19 09:18 | Outpatient (AMB) | payer OTHER, SELFPAY ==
--- NOTE | 2024-03-19 09:25 | A.OFFVIS_ITS ---
Vital Signs 3 03/19/24 09:26 Height 5 ft 7 in Weight 234 lb BMI 36.6 BP 162/90 H Blood Pressure Location Lt brachial Position Sitting Pulse 106 H Pulse Source Pulse Oximeter Pulse Oximetry (%) 96 Oxygen Delivery Method Room Air Intake Visit Reasons: Hip Pain Asbestos Siding Installer Required: No Allergies milk [MILK] Allergy (Severe, Verified 03/19/24 09:33) enterocolitis wheat [WHEAT] Allergy (Intermediate, Verified 03/19/24 09:33) enterocolitis amoxicillin [From AUGMENTIN] Adverse Reaction (Intermediate, Verified 03/19/24 09:33) N/V clavulanic acid [From AUGMENTIN] Adverse Reaction (Intermediate, Verified 03/19/24 09:33) N/V corn Adverse Reaction (Mild, Verified 03/19/24 09:33) Nausea and Vomiting ibuprofen [From MOTRIN] Adverse Reaction (Mild, Verified 03/19/24 09:33) ULCERS naproxen [NAPROXEN] Adverse Reaction (Mild, Verified 03/19/24 09:33) ULCERS NSAIDS (Non-Steroidal Anti-Inflamma [NSAIDS] Adverse Reaction (Mild, Verified 03/19/24 09:33) ULCERS oats Adverse Reaction (Mild, Verified 03/19/24 09:33) Abdominal Pain Medication List - Last Reconciled 03/19/24 by Sharifa Blanco albuterol sulfate 90 mcg/actuation 2 puffs PO Q6H PRN albuterol sulfate 2.5 mg (3 mL) inhalation Q6H PRN 30 days atorvastatin 20 mg PO BEDTIME bisacodyl (Fleet Bisacodyl) 10 mg (30 mL) [place] DAILY PRN 30 days blood sugar diagnostic (FreeStyle Lite Strips) As directed, to test blood sugar 4 times a day blood-glucose meter (FreeStyle Lite Meter kit) DX: E11.9, test blood sugar 2 times a day, duration 999 days blood-glucose meter,continuous (FreeStyle James 3 [place]) As directed blood-glucose sensor (FreeStyle James 3 Sensor device) Apply every 14 days As directed cane Daily As directed. 999 days ciprofloxacin-hydrocortisone 0.2-1 % (Cipro HC) 3 drps otic (ear) left BID 7 days crutches (pair of crutches) As directed crutches (pair of crutches) As directed Dupixent Pen (dupilumab) 300 mg (2 mL) subcut Q2W NS glucose (Dex4 Glucose) 16 grams (4 x 4 gram) PO Q15M PRN Grab bar As directed, 999 days ipratropium-albuterol 0.5 mg-3 mg(2.5 mg base)/3 mL 3 mL inhalation Q6H PRN lancets (FreeStyle Lancets) As directed lancets (FreeStyle Lancets) As directed bs checks 2-3 times per day Lantus Solostar U-100 Insulin (insulin glargine) 25 units (0.25 mL) subcut QAM NS lisinopril 30 mg PO DAILY magnesium hydroxide (Milk of Magnesia) 20 mL PO DAILY magnesium oxide 500 mg PO BID 30 days methadone 53 mg PO DAILY miscellaneous medical supply Hand-held?shower?head,?As directed, 999 days miscellaneous medical supply quad cane small base miscellaneous medical supply Toilet?see?raised,?As directed, 999 days montelukast 10 mg PO BEDTIME nebulizers As directed [id number]-cpxbqd-TH-thonzonium 3.3-3-10-0.5 mg/mL (Cortisporin-TC) 4 drps otic (ear) left TID 10 days Novolog FlexPen U-100 Insulin (insulin aspart U-100) 30 units in AM prior to breakfast and 20 uinits prior to lunch subcutaneously 20 units before dinner 3 times a day; NS omeprazole 20 mg PO DAILY ondansetron 4 mg PO Q8H 30 days peg-electrolyte soln 420 gram 240 mL PO Q10M pen needle, diabetic (BD Lynda 2nd Gen Pen Needle) DIRECTED INJECTS 4 X/DAY polyethylene glycol 3350 (Miralax) 17 grams PO DAILY PRN Shower Chair As directed sodium phosphates 19-7 gram/118 mL (Fleet Enema) 118 mL W[place] BEDTIME PRN tirzepatide (Mounjaro) 2.5 mg (0.5 mL) subcut QWEEK 4 weeks HPI Comments Details: Kale presents back to the office today for follow up c/o left hip pain for last 2 years, has been worse over the last 8 months completed PT less than 6 months ago without improvement of his pain using a cane for ambulation pain worse with sitting and walking MRI 2022 reviewed, results as per below Previous visit: Kale is a very pleasant 53-year-old male who presented to the office today for follow-up right lower extremity pain /numbness and left hip pain. Patient previously seen by Dr. Hernandez with diagnostic testing and most recently underwent a right saphenous nerve sprint with no improvement. He was then planned for a right femoral nerve sprint but states that he did not feel this would provide benefit of pain relief given the 1st sprint was unhelpful. He endorses pain from the right sarkar down to the foot with noticeable skin discoloration and hair loss. He does state that if he walks long distances the leg will swell. He had been evaluated by vascular and was told to wear compression socks. He has been working on weight loss to help with pain And diabetes but states it is difficult due to his limited mobility. Patient also complaining of left hip pain, he was evaluated by orthopedics in February but has yet to follow-up in their office. Prior: 52-year-old male presenting today for a follow-up of MRI results ? He reports swelling in his leg while walking. He has discoloration of the skin on his leg that started recently. He has tried using compressor stocking in the past. He has difficulty walking his dog and visiting the park with his daughter. He reports pain in his leg to the extent that his blood pressure reading starts elevating. He was recently diagnosed with diabetes mellitus. He has started gaining weight recently. He recently underwent an MRI of the lumbar spine without contrast. He no longer reports back pain. Pain is described mostly on the anterior sarkar and in the calf at the site of his previous surgery. He is not interested in any kind of spine intervention. [facility] Medical History (Updated 02/25/24 @ 13:52 by Suzie Motta PA-C) Dyslipidemia Uncontrolled type 2 diabetes mellitus with hyperglycemia, with long-term current use of insulin Chronic allergic rhinitis Diabetes Complex regional pain syndrome I Deficient knowledge of leg surgery home care Sinusitis Pre-op evaluation Methadone use GERD (gastroesophageal reflux disease) History of kidney stones Internal and external bleeding hemorrhoids Severe persistent asthma Sciatica Arthritis Anemia Hiatal hernia Dysphagia Hepatitis C COPD (chronic obstructive pulmonary disease) HTN (hypertension) History of drug abuse Cellulitis Surgical History History of common bile duct surgery History of hemorrhoidectomy Hx of endoscopy History of colonoscopy History of laparoscopy History of appendectomy Family History Father Diabetes Hypertension Mother Hypertension Social History Housing: Apartment Are you a primary care transition coordinator to a significant other at home: No Do you presently have visiting nurse or other home services: No Alcohol intake: never Comment: cramping, relieved partially after using bathroom Patient Tobacco Use Status: Former Tobacco user Tobacco use type: Cigarette e-Cigarette/Vaping Use: Never Used Second Hand Smoke Exposure: No Substance Use Type: Opiates service: No Current occupational status: unemployed Current occupational exposures/hazards: No Cognitive needs: No Hearing needs: No Vision needs: No Review of Systems Const All systems reviewed & are unremarkable except as noted in HPI and below Physical Exam Vital Signs: Last Vital Signs Pulse 106 H 03/19/24 09:26 BP 162/90 H 03/19/24 09:26 Pulse Ox 96 03/19/24 09:26 Oxygen Delivery Method Room Air 03/19/24 09:26 BMI result Body Mass Index 36.6 General: awake, alert, oriented. Answers questions appropriately. Fully engaged in examination. Skin: warm, dry, intact HEENT: Normocephalic. Hearing intact. Cardiac: External chest normal in appearance. Respiratory: No cough, audible wheezing or stridor. Abdomen: without gross distension. MS: No obvious swelling or deformities. Able to transition from sit to stand unassisted. Ambulates with bilaterally normal heel strike and toe off Left hip: Pain with internal/external rotation Neurological: Oriented to person, place, time and situation. Thought process intact. Ambulates with the use of a cane Psychiatric: Appropriate mood and affect. Good judgment and insight. Results Reviewed Results Reviewed: 05/21/2023 MRI Assessment & Plan Assessment & Plan (1) Left hip pain: Code(s): M25.552 - Pain in left hip Category: Medical Plan Patient presents the office today for follow-up left hip pain Completed physical therapy without improvement of his symptoms Will schedule for left intra-articular hip injection with local anesthetic. Patient requesting Ativan to take prior to procedure. All questions and concerns were answered, patient agrees with the plan. Follow up after injection, sooner if needed Coding Level of Care Code Est Pt Level 3 (00649) Diagnoses Left hip pain M25.552
[2024-03-19 09:26] VITALS: BP 162/90; PULSE 106; O2SAT 96; BMI 36.6
== END 2024-03-19 09:53 | disposition home or self-care (01) ==
PROVIDERS: Visit Provider Registered Nurse Emergency
DX: M25.552 Pain in left hip (principal)
CPT/HCPCS: 99213

== ENCOUNTER → 2024-03-19 09:18 | Outpatient (BNVA) | payer OTHER, SELFPAY | PROVIDERS: Visit Provider Registered Nurse Emergency | DX: M25.552 Pain in left hip (principal) | CPT/HCPCS: 99212 ==

== ENCOUNTER 2024-03-31 12:45 | Outpatient (AMB) | payer OTHER, SELFPAY ==
--- NOTE | 2024-03-31 12:48 | A.OFFVIS_ITS ---
Vital Signs 03/31/24 12:53 Height 5 ft 7 in Weight 239 lb 10.279 oz BMI 37.5 BP 168/108 H Blood Pressure Location Lt brachial Position Sitting Pulse 118 H Pulse Source Pulse Oximeter Intake Visit Reasons: DM/CONFIRMED Intake Note: Patient presents today to follow up on D2MT. Last Diabetic Eye exam: 08/2023 Last Podiatry Visit: Has one but he hasn't seen them yet. Random Glucose: 119 mg/dl HgA1c: 7.5% 02/25/24 Air Reduction Equipment Operator Required: No Accompanied by: Self / Same As Patient Allergies milk [MILK] Allergy (Severe, Verified 03/31/24 12:57) enterocolitis wheat [WHEAT] Allergy (Intermediate, Verified 03/31/24 12:57) enterocolitis amoxicillin [From AUGMENTIN] Adverse Reaction (Intermediate, Verified 03/31/24 12:57) N/V clavulanic acid [From AUGMENTIN] Adverse Reaction (Intermediate, Verified 03/31/24 12:57) N/V corn Adverse Reaction (Mild, Verified 03/31/24 12:57) Nausea and Vomiting ibuprofen [From MOTRIN] Adverse Reaction (Mild, Verified 03/31/24 12:57) ULCERS naproxen [NAPROXEN] Adverse Reaction (Mild, Verified 03/31/24 12:57) ULCERS NSAIDS (Non-Steroidal Anti-Inflamma [NSAIDS] Adverse Reaction (Mild, Verified 03/31/24 12:57) ULCERS oats Adverse Reaction (Mild, Verified 03/31/24 12:57) Abdominal Pain Medication List - Last Reconciled 03/31/24 by Suzie Motta PA-C albuterol sulfate 90 mcg/actuation 2 puffs PO Q6H PRN albuterol sulfate 2.5 mg (3 mL) inhalation Q6H PRN 30 days atorvastatin 20 mg PO BEDTIME bisacodyl (Fleet Bisacodyl) 10 mg (30 mL) [place] DAILY PRN 30 days blood sugar diagnostic (FreeStyle Lite Strips) As directed, to test blood sugar 4 times a day blood-glucose meter (FreeStyle Lite Meter kit) DX: E11.9, test blood sugar 2 times a day, duration 999 days blood-glucose meter,continuous (FreeStyle James 3 [place]) As directed blood-glucose sensor (FreeStyle James 3 Sensor device) Apply every 14 days As directed cane Daily As directed. 999 days ciprofloxacin-hydrocortisone 0.2-1 % (Cipro HC) 3 drps otic (ear) left BID 7 days crutches (pair of crutches) As directed crutches (pair of crutches) As directed Dupixent Pen (dupilumab) 300 mg (2 mL) subcut Q2W NS glucose (Dex4 Glucose) 16 grams (4 x 4 gram) PO Q15M PRN Grab bar As directed, 999 days ipratropium-albuterol 0.5 mg-3 mg(2.5 mg base)/3 mL 3 mL inhalation Q6H PRN lancets (FreeStyle Lancets) As directed lancets (FreeStyle Lancets) As directed bs checks 2-3 times per day Lantus Solostar U-100 Insulin (insulin glargine) 25 units (0.25 mL) subcut QAM NS lisinopril 30 mg PO DAILY magnesium hydroxide (Milk of Magnesia) 20 mL PO DAILY magnesium oxide 500 mg PO BID 30 days methadone 53 mg PO DAILY miscellaneous medical supply Hand-held?shower?head,?As directed, 999 days miscellaneous medical supply 2 med planners; 1 urinal; 1 bed red; 1 commode; 2 grab bars for bed miscellaneous medical supply quad cane small base miscellaneous medical supply Toilet?see?raised,?As directed, 999 days montelukast 10 mg PO BEDTIME nebulizers As directed [id number]-qbgqtc-EG-thonzonium 3.3-3-10-0.5 mg/mL (Cortisporin-TC) 4 drps otic (ear) left TID 10 days Novolog FlexPen U-100 Insulin (insulin aspart U-100) Inject 30 units before breakfast, 20 units before lunch and 20 units before dinner subcutaneously 3 times a day; NS omeprazole 20 mg PO DAILY ondansetron 4 mg PO Q8H 30 days peg-electrolyte soln 420 gram 240 mL PO Q10M pen needle, diabetic (BD Lynda 2nd Gen Pen Needle) DIRECTED INJECTS 4 X/DAY polyethylene glycol 3350 (Miralax) 17 grams PO DAILY PRN Shower Chair As directed sodium phosphates 19-7 gram/118 mL (Fleet Enema) 118 mL [place] BEDTIME PRN tirzepatide (Mounjaro) 2.5 mg (0.5 mL) subcut QWEEK 4 weeks HPI HPI DM/CONFIRMED: Details: Patient is a 54-year-old male with a significant past medical history of hypertension, type 2 diabetes, ED, dyslipidemia, CKD, chronic pain syndrome, hep C, COPD, methadone use presenting today for a diabetic follow-up. Endo: His last A1c was 7.5%. He is on Lantus 25 units at night, NovoLog t.i.d. 20-30 units. He was started on mounjaro and he states it was effective but was getting abdominal pain and nausea with it. He has stopped it. -He has tried metformin but did not tolerate. He has tried trulicity but did not tolerate due to vomiting. His cgm from today shows usage 76%, avg blood sugar is 188, 7.8%, with variability 26.8%. He is very high 11%, 40% high, 49% in target, 0% low. -Last eye exam: end of Sep 2023- states that there were some findings (does not recall name of eye issues) and is seeing retina specialist -Last foot exam: sees Dr. Eastman. CV: blood pressure in the office is 168/108. He is taking the lisinopril 30 mg. -Upon evaluation today pt keeps grabbing his chest and endorses chest pain that has been on and off for the last 2 weeks. He states this episode started while walking in here today. He denies n/v, dizziness, or sob. GI: Hep C was treated successfully 5 years ago. Follows with GI. [facility] Medical History (Updated 03/31/24 @ 13:31 by Suzie Motta PA-C) Dyslipidemia Uncontrolled type 2 diabetes mellitus with hyperglycemia, with long-term current use of insulin Chronic allergic rhinitis Diabetes Complex regional pain syndrome I Deficient knowledge of leg surgery home care Sinusitis Pre-op evaluation Methadone use GERD (gastroesophageal reflux disease) History of kidney stones Internal and external bleeding hemorrhoids Severe persistent asthma Sciatica Arthritis Anemia Hiatal hernia Dysphagia Hepatitis C COPD (chronic obstructive pulmonary disease) HTN (hypertension) History of drug abuse Cellulitis Surgical History History of common bile duct surgery History of hemorrhoidectomy Hx of endoscopy History of colonoscopy History of laparoscopy History of appendectomy Family History Father Diabetes Hypertension Mother Hypertension Social History Housing: Apartment Are you a primary career resource technician to a significant other at home: No Do you presently have visiting nurse or other home services: No Alcohol intake: never Comment: cramping, relieved partially after using bathroom Patient Tobacco Use Status: Former Tobacco user Tobacco use type: Cigarette e-Cigarette/Vaping Use: Never Used Second Hand Smoke Exposure: No Substance Use Type: Opiates service: No Current occupational status: unemployed Current occupational exposures/hazards: No Cognitive needs: No Hearing needs: No Vision needs: No Physical Exam Const General: diaphoretic Orientation/consciousness: patient oriented x3 HEENT Ears: hearing grossly normal bilaterally Neck Thyroid: Thyroid normal Lymphatic: no lymphadenopathy noted Resp Auscultation: clear to auscultation bilaterally Cardio Rate: regular rate Rhythm: regular rhythm Heart sounds: S1 normal heart sound present and S2 normal heart sound present Skin General skin exam: no rashes or lesions noted Neuro General: patient oriented x3, gait normal and no focal motor deficits Extrem Other: Dp pulses 2+ bilaterally. Sensation intact. Skin intact. Results Reviewed Results Reviewed: labs reviewed Assessment & Plan Assessment & Plan (1) Chest pain: Code(s): R07.9 - Chest pain, unspecified Category: Medical Qualifiers: Chest pain type: unspecified Qualified Code(s): R07.9 - Chest pain, unspecified Plan: patient slightly diaphoretic, bp elevated today at 168/108 with a pulse of 118. An ambulance was called for more emergent evaluation. pt will follow up after ED. 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 1 month f/u sooner prn. pt understands and agrees with the plan (3) HTN (hypertension): Code(s): I10 - Essential (primary) hypertension Category: Medical Qualifiers: Hypertension type: primary hypertension Qualified Code(s): I10 - Essential (primary) hypertension Plan: start metoprolol. discussed risks/benefits and adverse effects. f/u after hospital visit. Medications: New semaglutide (Ozempic) for 4 weeks 0.25 mg (0.368 mL) subcut QWEEK 3 mL 3RF metoprolol succinate ER 25 mg PO DAILY 30 tabs 0RF Discontinued tirzepatide (Mounjaro) Discontinued Reason: Duplicate 2.5 mg (0.5 mL) subcut QWEEK 4 weeks 2 mL 3RF Coding Level of Care Code Est Pt Level 4 (70149) Diagnoses Chest pain, unspecified type R07.9 Chest pain type: unspecified Uncontrolled type 2 diabetes mellitus with hyperglycemia, with long-term current use of insulin E11.65; Z79.4 Primary hypertension I10 Hypertension type: primary hypertension
[2024-03-31 12:53] VITALS: BP 168/108; PULSE 118; BMI 37.5
[2024-03-31 13:03] LABS: Glucose, Whole Blood 119 mg/dL (60-115)
== END 2024-03-31 13:35 | disposition home or self-care (01) ==
PROVIDERS: Visit Provider Physician Assistant
DX: R07.9 Chest pain, unspecified (principal); E11.65 Type 2 diabetes mellitus with hyperglycemia; Z79.4 Long term (current) use of insulin; I10 Essential (primary) hypertension
CPT/HCPCS: 99214

== ENCOUNTER 2024-03-31 13:51 | Emergency (ER) | payer OTHER, SELFPAY ==
--- NOTE | ~2024-03-31 | XR_ITS ---
EXAMINATION: XR CHEST CLINICAL INFORMATION: Chest pain COMPARISON: Chest radiograph 06/05/2022 CT enterography 12/06/2021 CT abdomen pelvis 08/02/2020 TECHNIQUE: Frontal view of the chest was obtained. FINDINGS: The heart and pulmonary vessels appear normal. No evidence of CHF. There is increased opacity seen at the left lung base, fairly similar to prior. Based upon the single view is difficult to ascertain where this is, but is likely scarring in the lingula as seen previously. No large pleural effusions are present. There is a 1 cm ovoid nodular density seen in the left upper lobe, likely a granuloma and has been present on prior studies dating back to at least 2019. XR/XR chest 1V IMPRESSION: 1. No acute intrathoracic disease. 2. 1 cm left upper lobe nodule consistent with a calcified granuloma.
--- NOTE | 2024-03-31 13:55 | ECG_ITS ---
Test Reason : CHEST PAIN [id number] Blood Pressure : / mmHG Vent. Rate : 092 BPM Atrial Rate : 092 BPM P-R Int : 144 ms QRS Dur : 072 ms QT Int : 386 ms P-R-T Axes : 069 -07 027 degrees QTc Int : 477 ms Normal sinus rhythm Normal ECG When compared with ECG of 22-AUG-2020 12:48, Criteria for Inferior infarct are no longer Present Referred By: Generic ED Physician Electronically Signed By:Fabiano Staples
[2024-03-31 14:01] VITALS: BP 151/104; BP 169/91; PULSE 100; PULSE 99; RESP 16; TEMP 36.7; O2SAT 96; BMI 37.8
--- NOTE | 2024-03-31 14:11 | ED_ITS ---
HPI - Chest Pain General Chief Complaint: Chest Pain Stated Complaint: CP X 2 WEEKS Time Seen by Provider: 03/31/24 14:01 Source: patient and EMS Mode of arrival: EMS Limitations: no limitations History of Present Illness ED Provider: DR. Mora HPI narrative: a 54-year-old male history of diabetes type 2, hypertension, dyslipidemia, CKD, chronic pain syndrome, hep C, COPD, brought in by ambulance from diabetic doctor's office for evaluation of chest pain that the patient has been complaining off for the past 2 weeks, pain is intermittent described as very mild usually started with exertion and last for about 30 minutes get relieved with rest, pain can be on the right or left side of the chest with no radiation. No associated shortness of breath with the chest pain, no recent travel, no lower extremity swelling or tenderness. No known establish coronary artery disease for this patient. Related Data Home Medications ?Medication ?Instructions ?Recorded ?Confirmed methadone 10 mg/mL oral concentrate 53 mg PO DAILY 08/31/20 03/31/24 nebulizers 02/05/23 03/31/24 Previous Rx's ?Medication ?Instructions ?Recorded lancets 28 gauge (FreeStyle #200 ea 09/20/21 Lancets) polyethylene glycol 3350 17 17 g PO DAILY PRN constipation 10/17/21 gram/dose oral powder (Miralax) #510 grams [employer] #1 ea 12/09/21 cane #1 ea 01/03/22 albuterol sulfate 90 mcg/actuation 2 puff PO Q6H PRN for wheezing 02/27/22 aerosol inhaler #8.5 ea blood-glucose meter (FreeStyle #1 ea 03/03/22 Lite Meter kit) bisacodyl 10 mg/30 mL enema (Fleet 10 mg (30 mL) IN DAILY PRN 09/23/22 Bisacodyl) constipation 30 days #888 mL crutches (pair of crutches) #1 ea 12/26/22 ipratropium 0.5 mg-albuterol 3 mg 3 ml inhalation Q6H PRN for 01/03/23 (2.5 mg base)/3 mL nebulization dyspnea #360 mL soln albuterol sulfate 2.5 mg/3 mL 2.5 mg (3 mL) inhalation Q6H PRN 03/15/23 (0.083 %) solution for nebulization shortness of breath or wheezing 30 days #180 mL crutches (pair of crutches) #1 ea 08/17/23 peg-electrolyte solution 420 gram 240 ml PO Q10M #4,000 mL 08/24/23 oral solution magnesium hydroxide 400 mg/5 mL 20 ml PO DAILY #3,780 mL 09/24/23 oral suspension (Milk of Magnesia) blood sugar diagnostic (FreeStyle #200 ea 09/25/23 Lite Strips) lancets 28 gauge (FreeStyle #100 ea 09/27/23 Lancets) [id number] 3.3 4 drp otic (ear) left TID 10 days 10/05/23 mg-3 mg-10 mg-0.5 mg/mL ear #10 mL drops,susp (Cortisporin-TC) pen needle, diabetic 32 gauge x #100 ea 10/07/23 (BD Lynda 2nd Gen Pen Needle) ciprofloxacin 0.2 %-hydrocortisone 3 drp otic (ear) left BID 7 days 10/11/23 1 % ear drops,suspension (Cipro HC) #10 mL ondansetron 4 mg disintegrating 4 mg PO Q8H 30 days #90 tabs 11/26/23 tablet sodium phosphates 19 gram-7 118 ml IN BEDTIME PRN constipation 11/26/23 gram/118 mL enema (Fleet Enema) #532 mL Grab bar #1 ea 12/13/23 Shower Chair #1 ea 12/13/23 miscellaneous medical supply #1 ea 12/13/23 miscellaneous medical supply #1 ea 12/13/23 Dupixent Pen 300 mg/2 mL 300 mg (2 mL) subcut Q2W #4 mL 12/25/23 subcutaneous pen injector (dupilumab) atorvastatin 20 mg tablet 20 mg PO BEDTIME #90 tabs 01/10/24 lisinopril 30 mg tablet 30 mg PO DAILY #90 tabs 01/25/24 montelukast 10 mg tablet 10 mg PO BEDTIME #90 tabs 01/29/24 magnesium oxide 500 mg capsule 500 mg PO BID 30 days #60 caps 02/01/24 Lantus Solostar U-100 Insulin 100 25 unit (0.25 mL) subcut QAM #15 mL 02/25/24 unit/mL (3 mL) subcutaneous pen (insulin glargine) blood-glucose sensor (FreeStyle #2 ea 02/25/24 James 3 Sensor device) glucose 4 gram chewable tablet 16 g (4 x 4 gram) PO Q15M PRN 02/25/24 (Dex4 Glucose) hypoglycemia #90 tabs omeprazole 20 mg capsule,delayed 20 mg PO DAILY #90 caps 03/13/24 release Novolog FlexPen U-100 Insulin 100 See Rx Instructions subcut TID #30 03/27/24 unit/mL (3 mL) subcutaneous mL (insulin aspart U-100) blood-glucose meter,continuous #1 ea 03/27/24 (FreeStyle James 3 [place]) miscellaneous medical supply See Rx Instructions miscellaneous 03/28/24 .COMPLEX #1 ea metoprolol succinate 25 mg 25 mg PO DAILY #30 tabs 03/31/24 tablet,extended release 24 hr semaglutide 0.25 mg or 0.5 mg (2 0.25 mg (0.368 mL) subcut QWEEK #3 03/31/24 mg/3 mL) subcutaneous pen injector mL (Ozempic) Allergies Allergy/AdvReac Type Severity Reaction Status Date / Time milk [MILK] Allergy Severe enterocolit Verified 03/31/24 14:04 is wheat [WHEAT] Allergy Intermediate enterocolit Verified 03/31/24 14:04 is amoxicillin [From AUGMENTIN] AdvReac Intermediate N/V Verified 03/31/24 14:04 clavulanic acid AdvReac Intermediate N/V Verified 03/31/24 14:04 [From AUGMENTIN] corn AdvReac Mild Nausea and Verified 03/31/24 14:04 Vomiting ibuprofen [From MOTRIN] AdvReac Mild ULCERS Verified 03/31/24 14:04 naproxen [NAPROXEN] AdvReac Mild ULCERS Verified 03/31/24 14:04 NSAIDS (Non-Steroidal AdvReac Mild ULCERS Verified 03/31/24 14:04 Anti-Inflamma [NSAIDS] oats AdvReac Mild Abdominal Verified 03/31/24 14:04 Pain Review of Systems 2 Review of Systems: all other systems are reviewed and are negative Constitutional: Reports as per HPI and Reports no additional constitutional complaints Eyes: Reports as per HPI and Reports no additional eye complaints Reports system reviewed and no additional complaints, except as documented Cardiovascular: Reports as per HPI and Reports no additional cardiovascular complaints Respiratory: Reports as per HPI and Reports no additional respiratory complaints Gastrointestinal: Reports as per HPI and Reports no additional gastrointestinal complaints Genitourinary: Reports no additional female genitourinary complaints Musculoskeletal: Reports no additional musculoskeletal complaints Skin/Breast: Reports system reviewed and no additional complaints, except as docu Psychiatric: Reports no additional psychiatric complaints Endocrine: Reports no additional endocrine complaints Hematologic/Lymphatic: Reports no additional hematologic/lymphatic complaints Allergic/Immunologic: Reports no additional allergic/immunologic complaints Reports system reviewed and no additional complaints, except as documented and Reports Abnormal speech present [facility] Past Medical History Medical History Dyslipidemia Uncontrolled type 2 diabetes mellitus with hyperglycemia, with long-term current use of insulin Chronic allergic rhinitis Diabetes Complex regional pain syndrome I Deficient knowledge of leg surgery home care Sinusitis Pre-op evaluation Methadone use GERD (gastroesophageal reflux disease) History of kidney stones Internal and external bleeding hemorrhoids Severe persistent asthma Sciatica Arthritis Anemia Hiatal hernia Dysphagia Hepatitis C COPD (chronic obstructive pulmonary disease) HTN (hypertension) History of drug abuse Cellulitis Surgical History History of common bile duct surgery History of hemorrhoidectomy Hx of endoscopy History of colonoscopy History of laparoscopy History of appendectomy Family History Family History Father Diabetes Hypertension Mother Hypertension Social History Social History Housing: Apartment Are you a primary daycare teacher to a significant other at home: No Do you presently have visiting nurse or other home services: No Alcohol intake: never Comment: cramping, relieved partially after using bathroom Patient Tobacco Use Status: Former Tobacco user Tobacco use type: Cigarette Smoked in Last 30 Days: No e-Cigarette/Vaping Use: Never Used Second Hand Smoke Exposure: No Use of substances other than those prescribed or required for medical reasons: No Substance Use Type: Opiates Advance Directives: No Advance Directives Information Provided: Yes Do you have a plan to hurt others: No Plan service: No Current occupational status: unemployed Current occupational exposures/hazards: No Cognitive needs: No Hearing needs: No Vision needs: No Physical Exam 2 Vital Signs: Vital Signs: Last Vital Signs Temp 98.1 F 03/31/24 14:01 Pulse 91 03/31/24 16:31 Resp 12 03/31/24 16:31 BP 143/93 H 03/31/24 16:31 Pulse Ox 95 03/31/24 16:31 O2 Del Method Room Air 03/31/24 16:31 BMI result Body Mass Index 37.8 Vital signs have been reviewed and appear to be correct. Blood pressure elevated. Heart rate normal. Respiratory rate normal. Temperature normal. Oxygen saturation normal. Appearance: Alert. Oriented X3. No acute distress. Head: Normal external exam. Normocephalic. Atraumatic. No Young signs noted. No raccoon eyes noted Eyes: PERRLA. EOMI. Conjunctiva and sclera normal. Eyelids normal. ENT: TM's Normal. Pharynx normal. Uvula midline. Moist mucous membranes. No trismus noted. No drooling noted. No muffled voice noted. Neck: Normal inspection. Neck supple. FROM. No adenopathy. Thyroid Normal. No meningeal signs. No neck mass noted. CVS: Normal heart rate and rhythm. Heart sound normal. No murmurs noted. Pulses normal throughout. Respiratory: No respiratory distress. Painless inspiration. Breath sounds normal. No wheezes/rales/rhonchi noted. Chest nontender. No accessory muscle usage noted or decreased air movement noted. Abdomen: Soft and nontender. Bowel sounds normal in all 4 quadrants. No distention noted. No organomegaly noted. No visible injury noted. Back: No CVA tenderness. Full range of motion noted. Skin: Skin warm and dry. Normal skin color. Normal skin turgor. No rashes/lesions/lacerations noted. Extremities: No lower extremity edema. Extremities exhibit normal range of motion. Extremities nontender. Neuro: Oriented X 3. Cranial nerve exam: II-XII are grossly intact No motor deficit. No sensory deficit. Reflexes normal. Course Reevaluation(s) Reevaluation #1: 54-year-old male with history of hypertension, DM presented with 2 weeks of intermittent chest pain that mostly exertion with a high concern of angina symptoms, patient has negative troponin, no ACS on EKG. Patient will need outpatient cardiac workup to rule out CAD. Patient was instructed to follow-up with Dr. Staples as an outpatient. Patient at low risk for pulmonary embolism character pain is intermittent mostly with exertion and no lower extremity swelling or tenderness. Time: 16:56 Medical Decision Making Differential Diagnosis Differential Diagnoses: The differential diagnosis associated with the presentation includes ( ACS, pulmonary embolism, pneumonia, pneumothorax, pleural effusion, electrolyte derangement, severe anemia.) Admission/Observation Consideration of admission/observation: Escalation of care including admission/observation considered Lab Data MDM Lab Attestation statement: I reviewed the patient's lab results. 03/31/24 14:33 03/31/24 14:33 Labs: Lab Results 03/31/24 Range/Units 14:33 WBC 12.4 H (4.8-10.8) X10*3/uL RBC 4.54 L (4.60-5.80) X10*6/uL Hgb 13.9 L (14.0-18.0) g/dl Hct 41.7 L (42.0-52.0) % MCV 91.9 (80.0-98.0) fL MCH 30.6 (27.0-33.0) pg MCHC 33.3 (31.0-36.0) g/dl RDW 12.7 (11.0-16.0) % Plt Count 246 (160-400) X10*3/uL MPV 10.6 (9.4-12.4) fL Immature Gran % (Auto) 0.7 H (0.0-0.4) % Neut % (Auto) 55.2 (45-73) % Lymph % (Auto) 32.5 (20-40) % [place] % (Auto) 6.0 (2-11) % Eos % (Auto) 4.7 H (0-4) % Baso % (Auto) 0.9 (0-2) % Lymph # (Auto) 4.0 (1.2-4.9) X10*3/uL [place] # (Auto) 0.8 (0.1-1.2) X10*3/uL Eos # (Auto) 0.6 H (0.0-0.4) X10*3/uL Baso # (Auto) 0.1 (0.0-0.2) X10*3/uL Abs Immat Gran (auto) 0.09 H (0.00-0.03) X10*3/uL Absolute Neuts (auto) 6.9 (2.0-8.3) x10*3/uL Absolute Nucleated RBC 0.000 (0.0-0.012) X10*3/uL Nucleated RBC % (auto) 0.0 (0.0-0.2) /100WBC Sodium 139 (135-145) mmol/L Potassium 4.1 (3.3-5.1) mmol/L Chloride 102 (96-108) mmol/L Carbon Dioxide 28 (22-29) mmol/L Anion Gap 13 (12-20) BUN 11 (9-16) mg/dL Creatinine 0.85 (0.5-1.4) mg/dL Estim Creat Clear Calc 115.9 Estimated GFR > 60 Random Glucose 104 (60-115) mg/dL Calcium 10.0 (8.4-10.2) mg/dL Total Bilirubin 0.4 (0.0-1.0) mg/dL Direct Bilirubin 0.2 (0.0-0.5) mg/dL AST 42 H (5-37) U/L ALT 51 H (0-40) U/L Alkaline Phosphatase 104 (39-117) U/L Troponin I High Sens < 2.7 (<3.5-35.0) ng/L B-Natriuretic Peptide 20 (<100) pg/mL Total Protein 7.7 (6.5-8.0) g/dL Albumin 4.4 (3.5-5.0) g/dL Lipase 22 (8-78) U/L Independent Interpretation I performed an independent interpretation of an: EKG ( Normal sinus rhythm at 92 beats per minutes, normal intervals, normal axis deviation, no ST-T changes.) and Plain X-Ray ( Chest:1. No acute intrathoracic disease. 2. 1 cm left upper lobe nodule consistent with a calcified granuloma. ) Radiology Impression Discussion of test interpretation with radiology: I have reviewed the radiologist's reading. Discharge Plan Discharge Clinical Impression: Chest pain Patient Disposition: Home, Self-Care Instructions: Chest Pain (ED) Additional Instructions: follow-up with Dr. Staples to do further testing on your heart as an outpatient. Prescriptions: No Action (DME) lancets [FreeStyle Lancets] 28 gauge misc See Rx Instructions .ROUTE .MEDSUPPLY Qty: 200 4RF Rx Instructions: As directed polyethylene glycol 3350 [Miralax] 17 gram/dose powder 17 g PO DAILY PRN (Reason: constipation) Qty: 510 0RF (DME) miscellaneous medical supply [facility] [place] See Rx Instructions .Route Qty: 1 0RF Rx Instructions: quad cane small base albuterol sulfate 90 mcg/actuation HFA aerosol inhaler 2 puff PO Q6H PRN (Reason: for wheezing) Qty: 8.5 6RF (DME) blood-glucose meter [FreeStyle Lite Meter] Kit See Rx Instructions .ROUTE .MEDSUPPLY Qty: 1 0RF Rx Instructions: DX: E11.9, test blood sugar 2 times a day, duration 999 days Fleet Bisacodyl 10 mg/30 mL enema 10 mg IN DAILY PRN (Reason: constipation) 30 Days Qty: 888 1RF (DME) pair of crutches Kit See Rx Instructions .Route Qty: 1 0RF Rx Instructions: As directed ipratropium-albuterol 0.5 mg-3 mg(2.5 mg base)/3 mL solution for nebulization 3 ml inhalation Q6H PRN (Reason: for dyspnea) Qty: 360 6RF albuterol sulfate 2.5 mg /3 mL (0.083 %) solution for nebulization 2.5 mg inhalation Q6H PRN (Reason: shortness of breath or wheezing) 30 Days Qty: 180 11RF magnesium hydroxide [Milk of Magnesia] 400 mg/5 mL suspension 20 ml PO DAILY Qty: 3780 0RF (DME) FreeStyle Lite Strips Strip See Rx Instructions .Route Qty: 200 7RF Rx Instructions: As directed, to test blood sugar 4 times a day (DME) lancets [FreeStyle Lancets] 28 gauge [facility] See Rx Instructions .Route Qty: 100 7RF Rx Instructions: As directed bs checks 2-3 times per day (DME) pen needle, diabetic [BD Lynda 2nd Gen Pen Needle] 32 gauge x 5/32 needle See Rx Instructions .ROUTE .COMPLEX Qty: 100 5RF Dose Instruction: DIRECTED INJECTS 4 X/DAY Rx Instructions: DIRECTED INJECTS 4 X/DAY Cipro HC 0.2-1 % drops,suspension 3 drp otic (ear) left BID 7 Days Qty: 10 0RF Dupixent Pen 300 mg/2 mL pen injector 300 mg subcut Q2W Qty: 4 11RF atorvastatin 20 mg tablet 20 mg PO BEDTIME Qty: 90 3RF montelukast 10 mg tablet 10 mg PO BEDTIME Qty: 90 11RF magnesium oxide 500 mg capsule 500 mg PO BID 30 Days Qty: 60 3RF omeprazole 20 mg capsule,delayed release(DR/EC) 20 mg PO DAILY Qty: 90 3RF insulin aspart U-100 [Novolog FlexPen U-100 Insulin] 100 unit/mL (3 mL) insulin pen See Rx Instructions subcut TID Qty: 30 4RF Rx Instructions: Inject 30 units before breakfast, 20 units before lunch and 20 units before dinner subcutaneously 3 times a day; (DME) FreeStyle James 3 [place] Misc See Rx Instructions miscellaneous .MEDSUPPLY Qty: 1 0RF Rx Instructions: As directed miscellaneous medical supply Misc See Rx Instructions miscellaneous .COMPLEX Qty: 1 0RF Rx Instructions: 2 med planners; 1 urinal; 1 bed red; 1 commode; 2 grab bars for bed methadone 10 mg/mL Concentrate 53 mg PO DAILY Rx Instructions: [place] [facility] [place] [facility] [place] [place] Misc See Rx Instructions .Route Qty: 1 0RF Rx Instructions: As directed (DME) Grab bar Misc See Rx Instructions .Route Qty: 1 3RF Rx Instructions: As directed, 999 days (DME) miscellaneous medical supply Misc See Rx Instructions .Route Qty: 1 0RF Rx Instructions: Toilet?see?raised,?As directed, 999 days (DME) miscellaneous medical supply Misc See Rx Instructions .ROUTE .MEDSUPPLY Qty: 1 0RF Rx Instructions: Hand-held?shower?head,?As directed, 999 days [place] [place] [place] Device See Rx Instructions .Route Qty: 1 0RF Rx Instructions: Daily As directed. 999 days (DME) nebulizers Misc See Rx Instructions .Route Rx Instructions: As directed peg-electrolyte soln 420 gram recon soln 240 ml PO Q10M Qty: 4000 3RF Rx Instructions: until fecal effluent is clear; Fleet Enema 19-7 gram/118 mL enema 118 ml IN BEDTIME PRN (Reason: constipation) Qty: 532 0RF ondansetron 4 mg tablet,disintegrating 4 mg PO Q8H 30 Days Qty: 90 2RF Cortisporin-TC 3.3-3-10-0.5 mg/mL drops,suspension 4 drp otic (ear) left TID 10 Days Qty: 10 0RF Ozempic 0.25 mg or 0.5 mg (2 mg/3 mL) pen injector 0.25 mg subcut QWEEK Qty: 3 3RF Rx Instructions: for 4 weeks metoprolol succinate 25 mg tablet extended release 24 hr 25 mg PO DAILY Qty: 30 0RF (DME) pair of crutches Kit See Rx Instructions .Route Qty: 1 0RF Rx Instructions: As directed lisinopril 30 mg tablet 30 mg PO DAILY Qty: 90 0RF insulin glargine [Lantus Solostar U-100 Insulin] 100 unit/mL (3 mL) insulin pen 25 unit subcut QAM Qty: 15 4RF glucose [Dex4 Glucose] 4 gram tablet,chewable 16 g PO Q15M PRN (Reason: hypoglycemia) Qty: 90 0RF Rx Instructions: until symptoms of low blood sugar are controlled (DME) FreeStyle James 3 Sensor Device See Rx Instructions .MEDSUPPLY Qty: 2 11RF Rx Instructions: Apply every 14 days As directed Referrals: Fabiano Staples MD [Physician] - Print Language: Other
[2024-03-31 14:42] LABS: MANUAL DIFF FLAG NO
[2024-03-31 14:43] LABS: Basophils Absolute Auto 0.1 X10*3/uL (0.0-0.2); Basophils Percent Auto 0.9 % (0-2); Eosinophils Absolute Auto 0.6 X10*3/uL (0.0-0.4); Eosinophils Percent Auto 4.7 % (0-4); Hematocrit 41.7 % (42.0-52.0); Hemoglobin 13.9 g/dl (14.0-18.0); Imm Gran Abs Auto 0.09 X10*3/uL (0.00-0.03); Imm Gran Pct Auto 0.7 % (0.0-0.4); Lymphocytes Percent Auto 32.5 % (20-40); Mean Corpuscular HGB Conc 33.3 g/dl (31.0-36.0); Mean Corpuscular Hemoglobin 30.6 pg (27.0-33.0); Mean Corpuscular Volume 91.9 fL (80.0-98.0); Mean Platelet Volume 10.6 fL (9.4-12.4); Monocytes Absolute Auto 0.8 X10*3/uL (0.1-1.2); Neutrophils Absolute Auto 6.9 x10*3/uL (2.0-8.3); Neutrophils Percent Auto 55.2 % (45-73); Platelet Count 246 X10*3/uL (160-400); Red Blood Count 4.54 X10*6/uL (4.60-5.80); Red Cell Distribution Width 12.7 % (11.0-16.0); White Blood Count 12.4 X10*3/uL (4.8-10.8)
[2024-03-31 15:04] LABS: Alanine Aminotransferase 51 U/L (0-40); Albumin Level 4.4 g/dL (3.5-5.0); Alkaline Phosphatase 104 U/L (39-117); Anion Gap 13 (12-20); Aspartate Amino Transferase 42 U/L (5-37); Bilirubin Direct 0.2 mg/dL (0.0-0.5); Bilirubin Total 0.4 mg/dL (0.0-1.0); Blood Urea Nitrogen 11 mg/dL (9-16); Carbon Dioxide 28 mmol/L (22-29); Chloride 102 mmol/L (96-108); Creatinine Clr Calc Pharmacy 115.9; Estimated Glomerular Filt Rate > 60; Glucose Random 104 mg/dL (60-115); Lipase 22 U/L (8-78); Potassium 4.1 mmol/L (3.3-5.1); Sodium 139 mmol/L (135-145); Total Protein 7.7 g/dL (6.5-8.0)
[2024-03-31 15:10] LABS: B Type Natriuretic Peptide 20 pg/mL (<100)
[2024-03-31 15:13] LABS: Troponin-I High Sensitivity < 2.7 ng/L (<3.5-35.0)
[2024-03-31 16:31] VITALS: BP 143/93; PULSE 91; RESP 12; O2SAT 95
[2024-03-31 16:50] LABS: Appearance Urine Clear; Color Urine Yellow; Glucose Urine UA Negative (Negative); Leukocyte Esterase Urine Negative (Negative); Nitrite Urine Negative (Negative); PH 7.5 (5.0-9.0); Specific Gravity - Urine 1.015 (1.005-1.025); Urine Blood Negative (Negative); Urine Ketones Negative (Negative); Urine Protein Negative (Neg-Trace)
[2024-03-31 17:28] VITALS: BP 143/93; PULSE 91; RESP 12; TEMP 36.7; O2SAT 95
== END 2024-03-31 17:29 | disposition home or self-care (01) ==
PROVIDERS: Emergency Provider Emergency Medicine; PCP Family Medicine
DX: R07.89 Other chest pain (principal); E11.9 Type 2 diabetes mellitus without complications; I10 Essential (primary) hypertension; R06.02 Shortness of breath; Z79.899 Other long term (current) drug therapy
CPT/HCPCS: 36415; 71045; 80048; 80076; 81003; 82947; 83690; 83880; 84484; 85025; 93005; 99212; 99283; 99285

== ENCOUNTER → 2024-03-31 13:55 | Outpatient (BNV) | payer OTHER, SELFPAY | PROVIDERS: Emergency Provider Emergency Medicine; PCP Family Medicine; Visit Provider Internal Medicine Cardiovascular Disease | DX: R07.9 Chest pain, unspecified (principal) | CPT/HCPCS: 93010 ==

== ENCOUNTER 2024-04-01 13:33 | Outpatient (AMB) | payer OTHER, SELFPAY ==
--- NOTE | 2024-04-01 13:44 | A.OFFPC_ITS ---
Vital Signs 04/01/24 13:48 04/01/24 13:52 Height 5 ft 7 in Weight 240 lb 4 oz BMI 37.6 BP 168/92 H 168/98 H Blood Pressure Location Rt brachial Rt brachial Position Sitting Sitting Respiration 16 Pulse 110 H Pulse Source Pulse Oximeter Temp 98.7 F Temp Source Oral Pulse Oximetry (%) 96 Oxygen Delivery Method Room Air Intake Visit Reasons: Left Hip pain Intake Note: Left hip pain. bilateral leg swelling, worse on the left. Toe swelling on the left side. Requesting refill on magnesium Nursing Informatics Specialist Required: No Allergies milk [MILK] Allergy (Severe, Verified 04/01/24 14:07) enterocolitis wheat [WHEAT] Allergy (Intermediate, Verified 04/01/24 14:07) enterocolitis amoxicillin [From AUGMENTIN] Adverse Reaction (Intermediate, Verified 04/01/24 14:07) N/V clavulanic acid [From AUGMENTIN] Adverse Reaction (Intermediate, Verified 04/01/24 14:07) N/V corn Adverse Reaction (Mild, Verified 04/01/24 14:07) Nausea and Vomiting ibuprofen [From MOTRIN] Adverse Reaction (Mild, Verified 04/01/24 14:07) ULCERS naproxen [NAPROXEN] Adverse Reaction (Mild, Verified 04/01/24 14:07) ULCERS NSAIDS (Non-Steroidal Anti-Inflamma [NSAIDS] Adverse Reaction (Mild, Verified 04/01/24 14:07) ULCERS oats Adverse Reaction (Mild, Verified 04/01/24 14:07) Abdominal Pain Medication List - Last Reconciled 04/01/24 by Jeanie Blank, TECHNICAL SALES SPECIALIST- albuterol sulfate 90 mcg/actuation 2 puffs PO Q6H PRN albuterol sulfate 2.5 mg (3 mL) inhalation Q6H PRN 30 days atorvastatin 20 mg PO BEDTIME bisacodyl (Fleet Bisacodyl) 10 mg (30 mL) DC DAILY PRN 30 days blood sugar diagnostic (FreeStyle Lite Strips) As directed, to test blood sugar 4 times a day blood-glucose meter (FreeStyle Lite Meter kit) DX: E11.9, test blood sugar 2 times a day, duration 999 days blood-glucose meter,continuous (FreeStyle James 3 [place]) As directed blood-glucose sensor (FreeStyle James 3 Sensor device) Apply every 14 days As directed cane Daily As directed. 999 days ciprofloxacin-hydrocortisone 0.2-1 % (Cipro HC) 3 drps otic (ear) left BID 7 days crutches (pair of crutches) As directed crutches (pair of crutches) As directed Dupixent Pen (dupilumab) 300 mg (2 mL) subcut Q2W NS glucose (Dex4 Glucose) 16 grams (4 x 4 gram) PO Q15M PRN Grab bar As directed, 999 days ipratropium-albuterol 0.5 mg-3 mg(2.5 mg base)/3 mL 3 mL inhalation Q6H PRN lancets (FreeStyle Lancets) As directed lancets (FreeStyle Lancets) As directed bs checks 2-3 times per day Lantus Solostar U-100 Insulin (insulin glargine) 25 units (0.25 mL) subcut QAM NS lisinopril 30 mg PO DAILY magnesium hydroxide (Milk of Magnesia) 20 mL PO DAILY magnesium oxide 500 mg PO BID 30 days methadone 53 mg PO DAILY metoprolol succinate ER 25 mg PO DAILY miscellaneous medical supply Hand-held?shower?head,?As directed, 999 days miscellaneous medical supply 2 med planners; 1 urinal; 1 bed red; 1 commode; 2 grab bars for bed miscellaneous medical supply quad cane small base miscellaneous medical supply Toilet?see?raised,?As directed, 999 days montelukast 10 mg PO BEDTIME nebulizers As directed ymyochcn-sqqstk-FN-thonzonium 3.3-3-10-0.5 mg/mL (Cortisporin-TC) 4 drps otic (ear) left TID 10 days Novolog FlexPen U-100 Insulin (insulin aspart U-100) Inject 30 units before breakfast, 20 units before lunch and 20 units before dinner subcutaneously 3 times a day; NS omeprazole 20 mg PO DAILY ondansetron 4 mg PO Q8H 30 days peg-electrolyte soln 420 gram 240 mL PO Q10M pen needle, diabetic (BD Lynda 2nd Gen Pen Needle) DIRECTED INJECTS 4 X/DAY polyethylene glycol 3350 (Miralax) 17 grams PO DAILY PRN semaglutide (Ozempic) 0.25 mg (0.368 mL) subcut QWEEK Shower Chair As directed sodium phosphates 19-7 gram/118 mL (Fleet Enema) 118 mL DC BEDTIME PRN Tobacco use date assessed: 12/13/23 Dental Screening Dental Screen Date: 09/21/23 HPI HPI Comments History of Present Illness Details 54-year-old male with uncontrolled diabe marta, hyperlipidemia and other chronic medical conditions here today for complaints of worsening pain and swelling in his left lower extremity. Reports chronic pain in his left hip along with swelling of bilateral lower extremities ongoing for last 3 years. Over the last few days though however he developed severe pain in the left hip along with swelling of the left leg. He has pain that goes down into the groin area, not associated with urination. He has painful weight-bearing. Ambulates with a cane. Denies any chest pain or shortness of breath. He did not fall, he has had no trauma to the hip to worsen the pain. Exam Awake alert oriented Mildly tachycardic, regular rhythm, blood pressure elevated Lung sounds clear to auscultation bilat Chronic vascular changes to bilateral lower extremities, decreased pedal pulse on the left, no edema, skin is warm, difficult moving around the room given the pain in his left hip. Asked for assist to bend over to put his shoes on. No pain with palpation over the hip. Unable to get him up onto the exam table to do a full orthopedic exam given the pain. Plan A DVT rule out Us done today given his presentation today. he has hardship w transportation therefore i ordered a d dimer in the event he could not get a ride.US negative, see below. He does need a close follow up with his primary care provider for re-evaluation of his hypertension. He should also schedule a follow up with his primary care to discuss his lower extremity swelling and pain in his left hip as work up today was nonrevealing for cause. RTO 1 week to fu on HTN and left leg pain & swelling This note is constructed using voice recognition software. While every effort has been made to ensure accuracy in human capital manager, still errors may have been included Sometimes, these errors may affect the content or meaning of the given sentence . Total time spent caring for the patient today was 45 minutes. This includes time spent before the visit reviewing the chart, time spent during the visit, and time spent after the visit on documentation [facility] Medical History Dyslipidemia Uncontrolled type 2 diabetes mellitus with hyperglycemia, with long-term current use of insulin Chronic allergic rhinitis Diabetes Complex regional pain syndrome I Deficient knowledge of leg surgery home care Sinusitis Pre-op evaluation Methadone use GERD (gastroesophageal reflux disease) History of kidney stones Internal and external bleeding hemorrhoids Severe persistent asthma Sciatica Arthritis Anemia Hiatal hernia Dysphagia Hepatitis C COPD (chronic obstructive pulmonary disease) HTN (hypertension) History of drug abuse Cellulitis Surgical History History of common bile duct surgery History of hemorrhoidectomy Hx of endoscopy History of colonoscopy History of laparoscopy History of appendectomy Family History Father Diabetes Hypertension Mother Hypertension Social History Housing: Apartment Are you a primary physician assistant primary care to a significant other at home: No Do you presently have visiting nurse or other home services: No Alcohol intake: never Comment: cramping, relieved partially after using bathroom Patient Tobacco Use Status: Former Tobacco user Tobacco use type: Cigarette e-Cigarette/Vaping Use: Never Used Second Hand Smoke Exposure: No Substance Use Type: Opiates service: No Current occupational status: unemployed Current occupational exposures/hazards: No Cognitive needs: No Hearing needs: No Vision needs: No Questionnaire Thrive Questionnaire Date Thrive assessed: 11/17/22 CORNELIUS-7 AMB Questionnaire CORNELIUS-7 Date CORNELIUS - 7 assessed: 11/17/22 Source: Developed by Drs. Sigifredo Matson, Sangeeta Sandy, Ty Davis and colleagues, with an educational frida from [facility]. Physical exam (Primary Care) Vital Signs: Last Vital Signs Temp 98.7 F 04/01/24 13:48 Pulse 110 H 04/01/24 13:48 Resp 16 04/01/24 13:48 BP 168/98 H 04/01/24 13:52 Pulse Ox 96 04/01/24 13:48 Oxygen Delivery Method Room Air 04/01/24 13:48 BMI result Body Mass Index 37.6 Tobacco/Smoking Status: Tobacco use Status Tobacco use date assessed 12/13/23 04/01/24 13:51 Patient Tobacco Use Status Former Tobacco user 04/01/24 13:51 Tobacco use type Cigarette 04/01/24 13:51 e-Cigarette/Vaping Use Never Used 04/01/24 13:51 Thrive Assessment: Date of Thrive Assessment Date Thrive assessed 11/17/22 04/01/24 13:51 Results Reviewed Results Reviewed: [address] [address] Ultrasound Report Signed Patient: Kale Zhong MR#: [id number] : 1970 Acct:[id number] Age/Sex: 54 / M ADM Date: 04/01/24 Loc: HO.US Attending Dr: Good Harper MD Ordering Physician: Jeanie Blank Date of Service: 04/01/24 Procedure(s): US venous duplex LE LT Accession Number(s): [id number] cc: Good Harper MD; Jeanie Blank; Anamika Bragg~ EXAMINATION: US VENOUS ULTRASOUND WITH DOPPLER LOWER EXTREMITY, LEFT CLINICAL INFORMATION: Edema. COMPARISON: Bilateral lower extremity venous duplex Doppler ultrasound exam January 19, 2022 TECHNIQUE: Ultrasound of the deep veins is performed from the hip to the calf with compression sonography and color and pulse Doppler assessment. Spectral analysis with color-flow imaging is performed. FINDINGS: There is normal venous compression and respiratory variation and augmented flow. The visualized common femoral vein, superficial femoral vein, profunda femoral vein, popliteal vein, and the trifurcation region shows no evidence of deep venous thrombosis. There is no significant popliteal fossa cyst. If the patient's symptoms persist, followup ultrasound in 5 days 7 days might be of value to exclude proximal propagation from a non-visualized calf vein. US/US venous duplex LE LT IMPRESSION: No DVT demonstrated in the left lower extremity. Dictated By: Ishaan Zheng MD Signed By: <Electronically signed by Ishaan Zheng MD in OV> 04/01/24 1611 DD/ 1527 TD/TT: Rough Carpenter: PRAVIN Assessment and Plan Assessment & Plan (1) Swelling: Code(s): R60.9 - Edema, unspecified (2) Pain: Code(s): R52 - Pain, unspecified (3) Uncontrolled hypertension: Code(s): I10 - Essential (primary) hypertension Orders: Orders US venous duplex LE LT Today R52 - Pain, unspecified, R60.9 - Edema, unspecified D Dimer High Sensitivity Today R52 - Pain, unspecified, R60.9 - Edema, unspecified Coding Level of Care Code Est Pt Level 5 (78086) Diagnoses Swelling R60.9 Pain R52 Uncontrolled hypertension I10
[2024-04-01 13:48] VITALS: BP 168/92; PULSE 110; RESP 16; TEMP 37.1; O2SAT 96; BMI 37.6
[2024-04-01 13:52] VITALS: BP 168/98
== END 2024-04-01 14:25 | disposition home or self-care (01) ==
PROVIDERS: Visit Provider Nurse Practitioner Family
DX: R60.9 Edema, unspecified (principal); R52 Pain, unspecified; I10 Essential (primary) hypertension
CPT/HCPCS: 99215

== ENCOUNTER 2024-04-01 15:05 | Outpatient (REF) | payer OTHER, SELFPAY ==
--- NOTE | ~2024-04-01 | US_ITS ---
EXAMINATION: US VENOUS ULTRASOUND WITH DOPPLER LOWER EXTREMITY, LEFT CLINICAL INFORMATION: Edema. COMPARISON: Bilateral lower extremity venous duplex Doppler ultrasound exam January 19, 2022 TECHNIQUE: Ultrasound of the deep veins is performed from the hip to the calf with compression sonography and color and pulse Doppler assessment. Spectral analysis with color-flow imaging is performed. FINDINGS: There is normal venous compression and respiratory variation and augmented flow. The visualized common femoral vein, superficial femoral vein, profunda femoral vein, popliteal vein, and the trifurcation region shows no evidence of deep venous thrombosis. There is no significant popliteal fossa cyst. If the patient's symptoms persist, followup ultrasound in 5 days 7 days might be of value to exclude proximal propagation from a non-visualized calf vein. US/US venous duplex LE IMPRESSION: No DVT demonstrated in the left lower extremity.
[2024-04-01 17:52] LABS: Estimated Average Glucose 148 mg/dL; Hemoglobin A1c % 6.8 % (<6.0)
[2024-04-01 17:56] LABS: D Dimer High Sensitivity < 150 NG/ML
[2024-04-01 18:12] LABS: Anion Gap 15 (12-20); Blood Urea Nitrogen 11 mg/dL (9-16); Calcium 10.3 mg/dL (8.4-10.2); Carbon Dioxide 27 mmol/L (22-29); Chloride 101 mmol/L (96-108); Estimated Glomerular Filt Rate > 60; Glucose Random 256 mg/dL (60-115); Potassium 4.5 mmol/L (3.3-5.1); Sodium 138 mmol/L (135-145)
== END 2024-04-01 15:06 | disposition home or self-care (01) ==
LOC: HO.US 15:05
PROVIDERS: Nurse Practitioner Family; Physician Assistant; PCP Family Medicine; Visit Provider Family Medicine
DX: R60.9 Edema, unspecified (principal); M79.89 Other specified soft tissue disorders; R52 Pain, unspecified; E11.65 Type 2 diabetes mellitus with hyperglycemia; Z79.4 Long term (current) use of insulin
CPT/HCPCS: 36415; 80048; 83036; 85379; 93971

== ENCOUNTER 2024-04-14 13:42 | Outpatient (AMB) | payer OTHER, SELFPAY ==
--- NOTE | 2024-04-14 14:01 | A.OFFPC_ITS ---
Vital Signs 04/14/24 14:07 Height 5 ft 7 in Weight 240 lb BMI 37.6 BP 140/80 H Blood Pressure Location Lt brachial Position Sitting Respiration 16 Pulse 104 H Pulse Source Pulse Oximeter Temp 97.5 F Temp Source Tympanic Pulse Oximetry (%) 98 Oxygen Delivery Method Room Air Intake Visit Reasons: Transfer of care fu HTN/ left leg pain and swellin Intake Note: follow htn lft leg pain ( pt was dropped during surgery) Allergies milk [MILK] Allergy (Severe, Verified 04/14/24 14:02) enterocolitis wheat [WHEAT] Allergy (Intermediate, Verified 04/14/24 14:02) enterocolitis amoxicillin [From AUGMENTIN] Adverse Reaction (Intermediate, Verified 04/14/24 1 4:02) N/V clavulanic acid [From AUGMENTIN] Adverse Reaction (Intermediate, Verified 04/14/24 14:02) N/V corn Adverse Reaction (Mild, Verified 04/14/24 14:02) Nausea and Vomiting ibuprofen [From MOTRIN] Adverse Reaction (Mild, Verified 04/14/24 14:02) ULCERS naproxen [NAPROXEN] Adverse Reaction (Mild, Verified 04/14/24 14:02) ULCERS NSAIDS (Non-Steroidal Anti-Inflamma [NSAIDS] Adverse Reaction (Mild, Verified 04/14/24 14:02) ULCERS oats Adverse Reaction (Mild, Verified 04/14/24 14:02) Abdominal Pain Tobacco use date assessed: 12/13/23 Dental Screening Dental Screen Date: 09/21/23 HPI Transfer of care fu HTN/ left leg pain and swellin HPI Details 54 y/o male presents to f/u hypertension , L lower extremity pain/swelling. Swelling?at?left?leg.??Had?prior?surgery?and?was?dropped?onto?leg. Recent?D-dimer?and?venous?duplex?study?were?negative?for?DVT Reports ongoing pain. Had seen a vascular specialist before [id number]. Blood pressure today 140/80, 104p. He is on lisinopril 30mg, metoprolol 25mg daily. Has difficulty walking/unsteady gait which he states is due to his hips. He notes he has an appt. with orthopedics on the for this. He reports some nausea. HPI Comments History of Present Illness Details Documentation assistance for Good Harper MD, was provided by Sharif Jacques, Integrity Engineer on 04/14/2024 at 2:44 PM EST. I, Dr. Harper, have read, observed, and verified documentation. [facility] Medical History Dyslipidemia Uncontrolled type 2 diabetes mellitus with hyperglycemia, with long-term current use of insulin Chronic allergic rhinitis Diabetes Complex regional pain syndrome I Deficient knowledge of leg surgery home care Sinusitis Pre-op evaluation Methadone use GERD (gastroesophageal reflux disease) History of kidney stones Internal and external bleeding hemorrhoids Severe persistent asthma Sciatica Arthritis Anemia Hiatal hernia Dysphagia Hepatitis C COPD (chronic obstructive pulmonary disease) HTN (hypertension) History of drug abuse Cellulitis Surgical History History of common bile duct surgery History of hemorrhoidectomy Hx of endoscopy History of colonoscopy History of laparoscopy History of appendectomy Family History Father Diabetes Hypertension Mother Hypertension Social History Housing: Apartment Are you a primary day care assistant to a significant other at home: No Do you presently have visiting nurse or other home services: No Alcohol intake: never Comment: cramping, relieved partially after using bathroom Patient Tobacco Use Status: Former Tobacco user Tobacco use type: Cigarette e-Cigarette/Vaping Use: Never Used Second Hand Smoke Exposure: No Substance Use Type: Opiates service: No Current occupational status: unemployed Current occupational exposures/hazards: No Cognitive needs: No Hearing needs: No Vision needs: No Questionnaire Thrive Questionnaire Date Thrive assessed: 11/17/22 CORNELIUS-7 AMB Questionnaire CORNELIUS-7 Date CORNELIUS - 7 assessed: 11/17/22 Source: Developed by Drs. Sigifredo Matson, Sangeeta Sandy, Ty Davis and colleagues, with an educational frida from [employer] Review of Systems Const Denies chills, Denies fatigue, Denies fever(s), Denies headache(s) and Denies weakness ENT Denies dizziness and Denies headache(s) Card Denies dyspnea Resp Denies cough, Denies dyspnea, Denies wheezing and Denies other (shortness of breath) GI Reports nausea Musc Denies numbness and Denies tingling Neuro Denies dizziness, Denies headache(s), Denies numbness, Denies tingling and Denies weakness Psych Denies anxiety and Denies depression Endo Denies fatigue Aller/Immun Denies wheezing Physical exam (Primary Care) Vital Signs: Last Vital Signs Temp 97.5 F 04/14/24 14:07 Pulse 104 H 04/14/24 14:07 Resp 16 04/14/24 14:07 BP 140/80 H 04/14/24 14:07 Pulse Ox 98 04/14/24 14:07 Oxygen Delivery Method Room Air 04/14/24 14:07 BMI result Body Mass Index 37.6 Tobacco/Smoking Status: Tobacco use Status Tobacco use date assessed 12/13/23 04/14/24 14:01 Patient Tobacco Use Status Former Tobacco user 04/14/24 14:01 Tobacco use type Cigarette 04/14/24 14:01 e-Cigarette/Vaping Use Never Used 04/14/24 14:01 Thrive Assessment: Date of Thrive Assessment Date Thrive assessed 11/17/22 04/14/24 14:01 Const General: well developed; No acute distress Nutritional Appearance: well nourished Orientation/consciousness: patient oriented x3 HENMT Head: Yes normocephalic and Yes atraumatic Eyes General: appearance normal, both eyes and all related structures Pupils: Equal, round and reactive pupils present EOM: EOMs intact bilaterally Resp Effort & Inspection: normal respiratory effort Neuro General: patient oriented x3 and No gait normal Cranial nerves: Yes Equal, round and reactive pupils present Gait exam (Neuro): gait abnormal Extrem Other: Lower extremity swelling Psych Affect: normal affect Assessment and Plan Assessment & Plan (1) Pain of left lower extremity: Code(s): M79.605 - Pain in left leg Plan: Lower?extremity?of?left?leg?at?calf. Recent?D-dimer?and duplex?ultrasound?were?negative?for?DVT He?appears?to?have?venous?insufficiency?with?edema Also?has?severe?hip?pain?and?is?likely?not?using?this?leg?is?much Advised?elevation Will?give?him?a?short?course?of?Lasix Referred?to?vascular?surgery He?has?an?appointment?with?ortho?at[facility]for?left?hip Use?walker Awaiting?paperwork?from?[facility]?for?personal?care?attendant?and?PT?with?visiting[place] - will?fill?this?out (2) HTN (hypertension): Code(s): I10 - Essential (primary) hypertension Qualifiers: Hypertension type: primary hypertension Qualified Code(s): I10 - Essential (primary) hypertension Plan: Blood?pressure?consistently?too?high He?has?not?taken?his?medications?on-time?last? night?but?he?has?been?consistently?too?high?for?many?months Will?increase?lisinopril Will?have?a?blood?pressure?monitor?sent?to?medical?supply?store?so?he?can?follow ?along?at?home?as?well (3) Lower extremity edema: Code(s): R60.0 - Localized edema Plan: Likely?due?to?venous?insufficiency?as?well?as?some?disuse Referred?to?vascular?surgery Follow-up?with?ortho?as?well (4) Unsteady gait: Code(s): R26.81 - Unsteadiness on feet Plan: Use?walker?and?follow-up?with?ortho (5) Hip pain: Code(s): M25.559 - Pain in unspecified hip Plan: Follow-up?with?ortho (6) Nausea: Code(s): R11.0 - Nausea Plan: Will?give?him?a?script?for?ondansetron Orders: Referrals Vascular Surgery Referral R60.0 - Localized edema Medications: New blood pressure monitor Automatic, Digital. Dx: I10. Daily As directed, 999 days/lifetime 1 ea 0RF I10 - Essential (primary) hypertension furosemide 20 mg PO DAILY 4 days 4 tabs 0RF R60.0 - Localized edema Changed From lisinopril 30 mg PO DAILY 90 tabs 0RF To lisinopril 40 mg PO DAILY 90 days 90 tabs 2RF Refilled ondansetron 4 mg PO Q8H 30 days 30 tabs 0RF Coding Level of Care Code Est Pt Level 4 (28867) Diagnoses Pain of left lower extremity M79.605 Primary hypertension I10 Hypertension type: primary hypertension Lower extremity edema R60.0 Unsteady gait R26.81 Hip pain M25.559 Nausea R11.0
[2024-04-14 14:07] VITALS: BP 140/80; PULSE 104; RESP 16; TEMP 36.4; O2SAT 98; BMI 37.6
== END 2024-04-14 14:35 | disposition home or self-care (01) ==
PROVIDERS: Visit Provider Family Medicine
DX: M79.605 Pain in left leg (principal); I10 Essential (primary) hypertension; R60.0 Localized edema; R26.81 Unsteadiness on feet; M25.559 Pain in unspecified hip; R11.0 Nausea
CPT/HCPCS: 99214

== ENCOUNTER 2024-04-22 11:26 | Outpatient (AMB) | payer OTHER, SELFPAY ==
[2024-04-22 11:29] VITALS: BP 152/98; PULSE 97; O2SAT 97; BMI 37.1
--- NOTE | 2024-04-22 11:29 | MHC.OFFVIS ---
Vital Signs 04/22/24 11:29 Height 5 ft 7 in Weight 237 lb 2 oz BMI 37.1 BP 152/98 H Blood Pressure Location Rt brachial Position Sitting Pulse 97 Pulse Source Pulse Oximeter Pulse Oximetry (%) 97 Oxygen Delivery Method Room Air Intake Visit Reasons: sinus infection Allergies milk [MILK] Allergy (Severe, Verified 04/22/24 11:33) enterocolitis wheat [WHEAT] Allergy (Intermediate, Verified 04/22/24 11:33) enterocolitis amoxicillin [From AUGMENTIN] Adverse Reaction (Intermediate, Verified 04/22/24 11:33) N/V clavulanic acid [From AUGMENTIN] Adverse Reaction (Intermediate, Verified 04/22/24 11:33) N/V corn Adverse Reaction (Mild, Verified 04/22/24 11:33) Nausea and Vomiting ibuprofen [From MOTRIN] Adverse Reaction (Mild, Verified 04/22/24 11:33) ULCERS naproxen [NAPROXEN] Adverse Reaction (Mild, Verified 04/22/24 11:33) ULCERS NSAIDS (Non-Steroidal Anti-Inflamma [NSAIDS] Adverse Reaction (Mild, Verified 04/22/24 11:33) ULCERS oats Adverse Reaction (Mild, Verified 04/22/24 11:33) Abdominal Pain HPI HPI sinus infection: Details: Kale is a pleasnt 54 year old male, former smoker, with underlying severe asthma, allergic rhinitis, GERD and HTN. At baseline he is moderately controlled on Dupixent, Advair, Duonebs, Singulair and Zyrtec. He is under the care of Dr. Dover and presents today for an acute visit. He reports symptoms started 04/13 with sinus congestion, sore throat and greenish brown nasal discharge. COVID negative. Denies any fevers, chills or sick contacts. He has attempted to use mucinex with progressively worsening symptoms. He denies any wheezing, dyspnea, chest tightness or cough. [facility] Medical History Dyslipidemia Uncontrolled type 2 diabetes mellitus with hyperglycemia, with long-term current use of insulin Chronic allergic rhinitis Diabetes Complex regional pain syndrome I Deficient knowledge of leg surgery home care Sinusitis Pre-op evaluation Methadone use GERD (gastroesophageal reflux disease) History of kidney stones Internal and external bleeding hemorrhoids Severe persistent asthma Sciatica Arthritis Anemia Hiatal hernia Dysphagia Hepatitis C COPD (chronic obstructive pulmonary disease) HTN (hypertension) History of drug abuse Cellulitis Surgical History History of common bile duct surgery History of hemorrhoidectomy Hx of endoscopy History of colonoscopy History of laparoscopy History of appendectomy Family History Father Diabetes Hypertension Mother Hypertension Social History Housing: Apartment Are you a primary rental boats caretaker to a significant other at home: No Do you presently have visiting nurse or other home services: No Alcohol intake: never Comment: cramping, relieved partially after using bathroom Patient Tobacco Use Status: Former Tobacco user Tobacco use type: Cigarette e-Cigarette/Vaping Use: Never Used Second Hand Smoke Exposure: No Substance Use Type: Opiates service: No Current occupational status: unemployed Current occupational exposures/hazards: No Cognitive needs: No Hearing needs: No Vision needs: No Review of Systems Const Denies chills, Denies excessive sweating, Denies fever(s) and Denies night sweats Eyes Denies dry eyes, Denies irritation and Denies itchy eyes ENT Reports Normal hearing present Card Denies chest pain, Denies chest pain at rest, Denies chest pain with activity, Denies claudication, Denies leg edema, Denies dyspnea, Denies dyspnea on exertion, Denies orthopnea and Denies paroxysmal nocturnal dyspnea Resp Denies chest congestion, Denies cough, Denies excessive phlegm production, Denies pain on inspiration, Denies pain with cough, Denies dyspnea, Denies dyspnea on exertion, Denies stridor and Denies wheezing Musc Denies myalgias Neuro Reports Normal hearing present Endo Denies excessive sweating Irving/Lymph Denies lymphadenopathy Aller/Immun Denies itchy eyes and Denies wheezing Physical Exam Vital Signs: Last Vital Signs Pulse 97 04/22/24 11:29 BP 152/98 H 04/22/24 11:29 Pulse Ox 97 04/22/24 11:29 Oxygen Delivery Method Room Air 04/22/24 11:29 BMI result Body Mass Index 37.1 Const General: cooperative, no acute distress, well developed and alert Nutritional Appearance: obese Orientation/consciousness: patient oriented x3 Limitations: no limitations HEENT Head: Yes normal to inspection, Yes normocephalic and Yes atraumatic Ears: hearing grossly normal bilaterally and external ears normal Eyes Other: left eye with extropia. Neck Neck: Yes normal visual inspection and Yes no lymphadenopathy Lymphatic: no lymphadenopathy noted Chest Chest palpation & inspection: normal inspection of the chest Resp Effort & Inspection: normal respiratory effort, able to speak in complete sentences, no audible wheezes, no cough, no stridor, not tachypneic, no tripod positioning and no use of accessory muscles Auscultation: clear to auscultation bilaterally Cardio Jugular venous distension: no JVD Rate: regular rate Rhythm: regular rhythm Skin Other: warm, dry General skin exam: no rashes or lesions noted Neuro General: patient oriented x3 Cranial nerves: Yes Normal hearing present Cognition (Neuro): normal cognition Extrem General: Yes normal to inspection, Yes capillary refill normal, Yes no clubbing, cyanosis or edema and Yes no pedal edema Psych Appearance: grossly normal and well kempt Speech and movement: Normal speech and movement present and Clear speech present Affect: normal affect Attitude: cooperative Thought process: Normal thought process present Thought content: Normal thought content present Insight: Good insight present (Psych) Judgement: Good judgement present (Psych) Assessment & Plan Assessment & Plan (1) Asthma: Code(s): J45.909 - Unspecified asthma, uncomplicated Category: Medical Qualifiers: Asthma severity: severe Asthma persistence: persistent Asthma complication type: uncomplicated Qualified Code(s): J45.50 - Severe persistent asthma, uncomplicated (2) GERD (gastroesophageal reflux disease): Code(s): K21.9 - Gastro-esophageal reflux disease without esophagitis Category: Medical Qualifiers: Esophagitis presence: without esophagitis Qualified Code(s): K21.9 - Gastro-esophageal reflux disease without esophagitis (3) Chronic allergic rhinitis: Code(s): J30.9 - Allergic rhinitis, unspecified Category: Medical Plan Will treat patient for sinusitis. Discussed using doxycycline as patient with adverse reaction to augmentin noted in chart, however patient adamant he has tolerated amoxicillin and this has worked for similar symptoms in the past. Will send. He is aware to call office if symptoms do not improve or PCP. All questions were answered and patient is in agreement of plan. Will follow up with Dr. Dover for regularly scheduled appointment. Medications: New amoxicillin 875 mg PO BID 14 tabs 0RF Coding Level of Care Code Est Pt Level 3 (72756) Diagnoses Severe persistent asthma without complication J45.50 Asthma severity: severe Asthma persistence: persistent Asthma complication type: uncomplicated Gastroesophageal reflux disease without esophagitis K21.9 Esophagitis presence: without esophagitis Chronic allergic rhinitis J30.9
== END 2024-04-22 12:59 | disposition home or self-care (01) ==
PROVIDERS: PCP Family Medicine; Visit Provider Nurse Practitioner Family
DX: J45.50 Severe persistent asthma, uncomplicated (principal); K21.9 Gastro-esophageal reflux disease without esophagitis; J30.9 Allergic rhinitis, unspecified
CPT/HCPCS: 99213

== ENCOUNTER → 2024-04-22 11:26 | Outpatient (BNVA) | payer OTHER, SELFPAY | PROVIDERS: PCP Family Medicine; Visit Provider Nurse Practitioner Family | DX: J45.50 Severe persistent asthma, uncomplicated (principal); J30.9 Allergic rhinitis, unspecified; K21.9 Gastro-esophageal reflux disease without esophagitis | CPT/HCPCS: 99212 ==

== ENCOUNTER 2024-05-07 12:45 | Outpatient (AMB) | payer OTHER, SELFPAY ==
--- NOTE | 2024-05-07 13:19 | A.OFFVIS_ITS ---
Intake Intake Visit Reasons: DM [place] [employer] Required: No Accompanied by: Self / Same As Patient Allergies milk [MILK] Allergy (Severe, Verified 04/22/24 11:33) enterocolitis wheat [WHEAT] Allergy (Intermediate, Verified 04/22/24 11:33) enterocolitis amoxicillin [From AUGMENTIN] Adverse Reaction (Intermediate, Verified 04/22/24 11:33) N/V clavulanic acid [From AUGMENTIN] Adverse Reaction (Intermediate, Verified 04/22/24 11:33) N/V corn Adverse Reaction (Mild, Verified 04/22/24 11:33) Nausea and Vomiting ibuprofen [From MOTRIN] Adverse Reaction (Mild, Verified 04/22/24 11:33) ULCERS naproxen [NAPROXEN] Adverse Reaction (Mild, Verified 04/22/24 11:33) ULCERS NSAIDS (Non-Steroidal Anti-Inflamma [NSAIDS] Adverse Reaction (Mild, Verified 04/22/24 11:33) ULCERS oats Adverse Reaction (Mild, Verified 04/22/24 11:33) Abdominal Pain HPI Comprehensive Diabetes Asmnt Most Recent Diabetes Results: Hemoglobin A1c 4.9 % 04/25/19 Microalb/Creat Ratio 19.3 ug/mg cr (<30) 02/25/24 Cholesterol 178 mg/dL (<200) 02/25/24 HDL Cholesterol 35 mg/dL (>40) L 02/25/24 Triglycerides 258 mg/dL (<150) H 02/25/24 Creatinine 1.08 mg/dL (0.5-1.4) 04/01/24 Blood Urea Nitrogen 11 mg/dL (9-16) 04/01/24 Sodium 138 mmol/L (135-145) 04/01/24 Potassium 4.5 mmol/L (3.3-5.1) 04/01/24 Chloride 101 mmol/L (96-108) 04/01/24 Carbon Dioxide 27 mmol/L (22-29) 04/01/24 Calcium 10.3 mg/dL (8.4-10.2) H 04/01/24 AST 42 U/L (5-37) H 03/31/24 ALT 51 U/L (0-40) H 03/31/24 Total Protein 7.7 g/dL (6.5-8.0) 03/31/24 Albumin 4.4 g/dL (3.5-5.0) 03/31/24 [facility] Medical History Dyslipidemia Uncontrolled type 2 diabetes mellitus with hyperglycemia, with long-term current use of insulin Chronic allergic rhinitis Diabetes Complex regional pain syndrome I Deficient knowledge of leg surgery home care Sinusitis Pre-op evaluation Methadone use GERD (gastroesophageal reflux disease) History of kidney stones Internal and external bleeding hemorrhoids Severe persistent asthma Sciatica Arthritis Anemia Hiatal hernia Dysphagia Hepatitis C COPD (chronic obstructive pulmonary disease) HTN (hypertension) History of drug abuse Cellulitis Surgical History History of common bile duct surgery History of hemorrhoidectomy Hx of endoscopy History of colonoscopy History of laparoscopy History of appendectomy Family History Father Diabetes Hypertension Mother Hypertension Social History Housing: Apartment Are you a primary spiritual care coordinator to a significant other at home: No Do you presently have visiting nurse or other home services: No Alcohol intake: never Comment: cramping, relieved partially after using bathroom Patient Tobacco Use Status: Former Tobacco user Tobacco use type: Cigarette e-Cigarette/Vaping Use: Never Used Second Hand Smoke Exposure: No Substance Use Type: Opiates service: No Current occupational status: unemployed Current occupational exposures/hazards: No Cognitive needs: No Hearing needs: No Vision needs: No Assessment & Plan Assessment & Plan (1) Uncontrolled type 2 diabetes mellitus with hyperglycemia, with long-term current use of insulin: Code(s): E11.65 - Type 2 diabetes mellitus with hyperglycemia; Z79.4 - alf (current) use of insulin Plan: Learning objectives: The patient was provided with verbal and written education on the following topics as outlined below. The patient met all learning objectives and was able to verbalize understanding and provide teach back of education topics discussed . The patient was provided with the opportunity to ask questions and all questions were answered. Patient Assessment Patient questions/concerns, patient's last A1c on 04/01/2024 6.8%, this is an improvement from A1c in January 2024 of 7.9% Patient did forget to bring meter to today's visit Reports he has been upset by some issues that have been going on in his family. Patient is currently taking Lantus 20 units daily NovoLog prior to meals Ozempic 0.25 mg weekly Exercise Medical clearance Effect of exercise on blood sugar Start slowly and gradually increase pace/duration over time Goal amount of exercise Checking blood glucose/have a source of carbs with you Medications (If applicable) * Name of medication * Dosing/administration instructions * Mechanism of action * Potential side effects * Potential adverse reaction and appropriate treatment * Review onset, peak, duration Assess for concerns re: insurance coverage, cost, barriers to compliance Insulin/Injectables (If applicable) * Storage/care of insulin * Injection sites * Site rotation * Onset, peak, duration * Drawing up insulin * Injecting insulin/other injectables * Sharps disposal Continuous blood glucose monitoring (if applicable) Hypoglycemia and Hyperglycemia * Signs and symptoms * Causes * Treatment * Preventing hypoglycemia * When to seek medical attention Medical alert bracelet Lifestyle * Work * Travel * Stress management * Problem solving Know your goals * A1C * Blood sugar targets * Blood pressure * Cholesterol/LDL Urine microalbumin New Goal:? Patient will bring meter to every visit at [facility] Portions of this note were created using voice recognition software, please excuse any words or phrases that may have been misinterpreted. Patient Instructions: Include regular daily activity. ADA recommends 30 minutes of exercise 5 days a week. Weight loss talk to PCP or [facility] before starting new plan. Test blood sugar as directed; Fasting and 2hpp largest meal. Watch trends in results. Utilize results and to assess how food, physical activity and medications affect blood sugar results. Bring glucometer or CGM to next visit. Be knowledgeable about diabetes medication, its action, side effects, efficacy, toxicity, prescribed dosage, appropriate timing and frequency of administration, effect of missed and delayed doses and instructions for storage, travel and safety. Problem solving techniques to monitor hypo/hyperglycemia episodes and treatments. Reduce risk reduction behaviors, smoking cessation, regular eye, foot and dental examinations. Patient will follow-up with early childhood special educator in 3 months Coding Level of Care Code Est Pt Level 1 (14132) Diagnoses Uncontrolled type 2 diabetes mellitus with hyperglycemia, with long-term current use of insulin E11.65; Z79.4
== END 2024-05-07 13:26 | disposition home or self-care (01) ==
PROVIDERS: Visit Provider Registered Nurse Diabetes Educator
DX: E11.65 Type 2 diabetes mellitus with hyperglycemia (principal); Z79.4 Long term (current) use of insulin

== ENCOUNTER → 2024-05-07 12:45 | Outpatient (BNVA) | payer OTHER, SELFPAY | PROVIDERS: Visit Provider Registered Nurse Diabetes Educator | DX: E11.65 Type 2 diabetes mellitus with hyperglycemia (principal); Z79.4 Long term (current) use of insulin | CPT/HCPCS: 99211 ==

== ENCOUNTER 2024-05-15 14:22 | Outpatient (AMB) | payer OTHER, SELFPAY ==
[2024-05-15 14:32] VITALS: BP 134/78; PULSE 89; O2SAT 96; BMI 36.8
--- NOTE | 2024-05-15 14:32 | A.OFFVIS_ITS ---
Vital Signs 05/15/24 14:32 Height 5 ft 7 in Weight 235 lb BMI 36.8 BP 134/78 Blood Pressure Location Lt brachial Position Sitting Pulse 89 Pulse Source Pulse Oximeter Pulse Oximetry (%) 96 Oxygen Delivery Method Room Air Intake Visit Reasons: cough, shortness of breath Allergies milk [MILK] Allergy (Severe, Verified 05/15/24 14:36) enterocolitis wheat [WHEAT] Allergy (Intermediate, Verified 05/15/24 14:36) enterocolitis amoxicillin [From AUGMENTIN] Adverse Reaction (Intermediate, Verified 05/15/24 14:36) N/V clavulanic acid [From AUGMENTIN] Adverse Reaction (Intermediate, Verified 05/15/24 14:36) N/V corn Adverse Reaction (Mild, Verified 05/15/24 14:36) Nausea and Vomiting ibuprofen [From MOTRIN] Adverse Reaction (Mild, Verified 05/15/24 14:36) ULCERS naproxen [NAPROXEN] Adverse Reaction (Mild, Verified 05/15/24 14:36) ULCERS NSAIDS (Non-Steroidal Anti-Inflamma [NSAIDS] Adverse Reaction (Mild, Verified 05/15/24 14:36) ULCERS oats Adverse Reaction (Mild, Verified 05/15/24 14:36) Abdominal Pain HPI Comments Details: The patient is a 54-year-old gentleman with severe persistent asthma. He he has had previous intubations in the past for status asthmaticus. More recently he has had multiple bouts of prednisone tapers for his significant persistent symptoms. The patient has been using his current respiratory medications with very good adherence. However, still requiring short-acting beta agonists several times a day. He also uses nebulizer. At this point the patient is failing outpatient therapy with uncontrolled asthma. Has significant wheezing on examination. Also has significant allergies. A previous blood work is IgE levels had been noted to be elevated and also had some degree of eosinophilia. More recently he was evaluated by Allergy. He will be following up with them soon. Therefore, we will continue awaiting their recommendations. He also had pulmonary function studies demonstrating severe obstruction consistent with severe uncontrolled asthma. We did evaluate his blood work demonstrating the elevations in his eosinophils. The patient also has elevations in his eosinophils. Based on these findings and is positive allergy testing the patient is a great candidate for biologic therapy with Dupixent. 11/04/2020 the patient is here for a preoperative evaluation. Overall the patient has been doing very good from a respiratory status. He has been off all prednisone. Patient is continue with Dupixent every 2 weeks. He is continue with respiratory therapy as prescribed with good adherence. He has not required his nebulized therapy. He has been having issues with his hemorrhoids and will undergo surgery tomorrow. However due to his respiratory condition a preop was requested. The patient has been feeling well. He does have some cough but is nonproductive intubated in nature. He has been able to walk and go up a lot of stairs without any difficulty. In the office he did to spirometry with an FEV1 to FVC of 61% and FEV1 of 56% predicted. This is consistent with moderate COPD. Overall lot better for him. At this point the patient is medically optimized from a respiratory status. In regards to a surgical standpoint due to his respiratory issues he would benefit from avoiding general anesthesia to minimize bronchospasms and difficulty with per status if possible. Either LMA or spinal would be appropriate. However, if the alternatives are not available I do believe that based on his current respiratory status and is optimize state the patient is able to tolerate general anesthesia. Due to his moderate obstruction the patient does have increased perioperative pulmonary complications which include, atelectasis, hypoxia prolonged mechanical ventilation and also pneumonia. Again, patient is medically optimized and may able to pursue with surgery and anesthesia. 10/05/2023 the patient has a pulmonary visit today. Overall he is doing better from a respiratory status. He continues to Dupixent every 2 weeks with very good response. He does continue to use his maintenance therapy which includes Singulair and Combivent. The patient has not required any prednisone. He does have some dyspnea on exertion mild in severity. Also has an intermittent cough. That typically is nonproductive in nature. Otherwise he is without any other respiratory complaints. 05/15/2024 the patient is here for a pulmonary follow-up visit. He is having hard time sinusitis. Was evaluated several weeks ago because the sinusitis and is still not better. He has a hard time breathing through his nose. He has noticed some increased bloody drainage primarily from the right nares. He is getting some irritation and headaches. Sinus pressure is uncomfortable moderate severity. He is concerned that the symptoms are going to continue dripping down affecting his asthma. The patient will go ahead and get x-rays at this time for his sinuses. He already has some wheezing on examination. Therefore will go ahead and start him on some prednisone and will start him on Afrin for 5 days. The patient does have a blood pressure therefore the he can not use Sudafed. Will put him on Levaquin. If the patient is doing better he will call. At that point will go ahead and refer him to ENT and also request a CT scan of the sinuses. He will continue with Dupixent injection at this time. He will continue with his respiratory therapy as prescribed. The patient follow- up in 3-4 weeks. [facility] Medical History Dyslipidemia Uncontrolled type 2 diabetes mellitus with hyperglycemia, with long-term current use of insulin Chronic allergic rhinitis Diabetes Complex regional pain syndrome I Deficient knowledge of leg surgery home care Sinusitis Pre-op evaluation Methadone use GERD (gastroesophageal reflux disease) History of kidney stones Internal and external bleeding hemorrhoids Severe persistent asthma Sciatica Arthritis Anemia Hiatal hernia Dysphagia Hepatitis C COPD (chronic obstructive pulmonary disease) HTN (hypertension) History of drug abuse Cellulitis Surgical History History of common bile duct surgery History of hemorrhoidectomy Hx of endoscopy History of colonoscopy History of laparoscopy History of appendectomy Family History Father Diabetes Hypertension Mother Hypertension Social History Housing: Apartment Are you a primary ocular care technician to a significant other at home: No Do you presently have visiting nurse or other home services: No Alcohol intake: never Comment: cramping, relieved partially after using bathroom Patient Tobacco Use Status: Former Tobacco user Tobacco use type: Cigarette e-Cigarette/Vaping Use: Never Used Second Hand Smoke Exposure: No Substance Use Type: Opiates service: No Current occupational status: unemployed Current occupational exposures/hazards: No Cognitive needs: No Hearing needs: No Vision needs: No Review of Systems Const Denies chills and Denies fever(s) ENT Reports epistaxis, Reports nasal congestion, Reports nasal discharge, Reports nasal obstruction, Reports post nasal drip, Reports sinus pain and Reports sinus pressure Card Denies chest pain Resp Denies change in phlegm color, Reports cough and Reports wheezing GI Denies change in bowel habits and Reports constipation Denies hematuria and Denies difficulty urinating Musc Reports abnormal gait, Denies back pain, Reports arthralgias, Reports joint swelling and Reports limited range of motion Neuro Reports abnormal gait, Denies focal weakness and Denies convulsions Psych Denies depression and Denies mood swings Irving/Lymph Denies lymphadenopathy Aller/Immun Reports wheezing Physical Exam Vital Signs: Last Vital Signs Pulse 89 05/15/24 14:32 BP 134/78 05/15/24 14:32 Pulse Ox 96 05/15/24 14:32 Oxygen Delivery Method Room Air 05/15/24 14:32 BMI result Body Mass Index 36.8 Const General: alert HEENT Head: Yes other (has a mask) Neck Neck: Yes normal visual inspection, Yes full ROM and Yes no lymphadenopathy Chest Chest palpation & inspection: normal inspection of the chest Resp Effort & Inspection: prolonged expiratory phase Auscultation: wheezes and diminished lung sounds Cardio Rate: regular rate Rhythm: regular rhythm Heart sounds: S1 normal heart sound present and S2 normal heart sound present GI Palpation (GI): Soft to palpation and nontender Auscultation: normal bowel sounds Assessment & Plan Assessment & Plan (1) Asthma: Code(s): J45.909 - Unspecified asthma, uncomplicated Category: Medical Qualifiers: Asthma complication type: uncomplicated Asthma persistence: persistent Asthma severity: severe Qualified Code(s): J45.50 - Severe persistent asthma, uncomplicated (2) GERD (gastroesophageal reflux disease): Code(s): K21.9 - Gastro-esophageal reflux disease without esophagitis Category: Medical Qualifiers: Esophagitis presence: without esophagitis Qualified Code(s): K21.9 - Gastro-esophageal reflux disease without esophagitis (3) Chronic allergic rhinitis: Code(s): J30.9 - Allergic rhinitis, unspecified Category: Medical (4) Sinusitis: Code(s): J32.9 - Chronic sinusitis, unspecified Category: Medical Qualifiers: Chronicity: subacute Sinusitis location: maxillary Qualified Code(s): J01.00 - Acute maxillary sinusitis, unspecified Plan continue Dupixent 300mg [id number] Continue allergy therapy: singulair and zyrtec continue Duonebs as needed continue Advair HFA 230/21 2 puff BID reflux diet allergy therapy sinus xray start afrin x 5 days start prednisone taper start levaquin consider sinus CT consider ENT referral if no better f/U 6-8 weeks Orders: Orders XR sinus min 3V Today J01.00 - Acute maxillary sinusitis, unspecified Medications: New prednisone PO daily; Take 2 tabs daily x 7 days, then 1 tab daily x 7 days 21 tabs 0RF 14 days oxymetazoline 0.05% (Afrin (oxymetazoline)) 2 sprays intranasal Q12H PRN 22 mL 4RF nasal congestion 5 days mupirocin 2% 1 appl topical BID 22 grams 0RF 7 days levofloxacin 500 mg PO DAILY 10 tabs 0RF 10 days Coding Level of Care Code Est Pt Level 4 (57518) Diagnoses Severe persistent asthma without complication J45.50 Asthma complication type: uncomplicated Asthma persistence: persistent Asthma severity: severe Gastroesophageal reflux disease without esophagitis K21.9 Esophagitis presence: without esophagitis Chronic allergic rhinitis J30.9 Subacute maxillary sinusitis J01.00 Chronicity: subacute Sinusitis location: maxillary Time Spent (min) 17
== END 2024-05-15 14:47 | disposition home or self-care (01) ==
PROVIDERS: PCP Family Medicine; Visit Provider Hospitalist
DX: J45.50 Severe persistent asthma, uncomplicated (principal); K21.9 Gastro-esophageal reflux disease without esophagitis; J30.9 Allergic rhinitis, unspecified; J01.00 Acute maxillary sinusitis, unspecified
CPT/HCPCS: 99214

== ENCOUNTER → 2024-05-15 14:22 | Outpatient (BNVA) | payer OTHER, SELFPAY | PROVIDERS: Visit Provider Hospitalist | DX: J45.50 Severe persistent asthma, uncomplicated (principal); J30.9 Allergic rhinitis, unspecified; J01.00 Acute maxillary sinusitis, unspecified | CPT/HCPCS: 99212 ==

== ENCOUNTER 2024-05-16 11:11 | Outpatient (REF) | payer OTHER, SELFPAY ==
--- NOTE | ~2024-05-16 | XR_ITS ---
EXAMINATION: XR SINUSES CLINICAL INFORMATION: Acute maxillary sinusitis. COMPARISON: Report of CT scan of 04/03/2012 without images. TECHNIQUE: 3 views of the sinuses were obtained. FINDINGS: There is partial opacification of the left maxillary sinus. There also appears to be some mucosal thickening within the right maxillary sinus. There appears to be mucosal thickening about the lateral aspect of the right sphenoid sinus. No definite air-fluid level is appreciated. The frontal, ethmoid and left sphenoid sinuses appear unremarkable. No bony destruction is evident. Visualized mastoid air cells appear unremarkable. XR/XR sinus min 3V IMPRESSION: Findings consistent with chronic sinusitis within the right maxillary and right sphenoid sinuses with question of acute or chronic disease within the left sphenoid sinus. Electronically signed by: Mika Abreu MD 05/22/2024 11:12 AM EDT
== END 2024-05-16 11:12 | disposition home or self-care (01) ==
LOC: HO.XRAY 11:11
PROVIDERS: PCP Family Medicine; Visit Provider Hospitalist
DX: J01.00 Acute maxillary sinusitis, unspecified (principal)
CPT/HCPCS: 70220

== ENCOUNTER 2024-06-02 10:09 | Outpatient (AMB) | payer OTHER, SELFPAY ==
--- NOTE | 2024-06-02 10:12 | MHC.OFFVIS ---
Intake Visit Reasons: routine f/u Allergies milk [MILK] Allergy (Severe, Verified 06/02/24 09:53) enterocolitis wheat [WHEAT] Allergy (Intermediate, Verified 06/02/24 09:53) enterocolitis amoxicillin [From AUGMENTIN] Adverse Reaction (Intermediate, Verified 06/02/24 09:53) N/V clavulanic acid [From AUGMENTIN] Adverse Reaction (Intermediate, Verified 06/02/24 09:53) N/V corn Adverse Reaction (Mild, Verified 06/02/24 09:53) Nausea and Vomiting ibuprofen [From MOTRIN] Adverse Reaction (Mild, Verified 06/02/24 09:53) ULCERS naproxen [NAPROXEN] Adverse Reaction (Mild, Verified 06/02/24 09:53) ULCERS NSAIDS (Non-Steroidal Anti-Inflamma [NSAIDS] Adverse Reaction (Mild, Verified 06/02/24 09:53) ULCERS oats Adverse Reaction (Mild, Verified 06/02/24 09:53) Abdominal Pain HPI HPI routine f/u: Details: 54 yr old here for f/u RECAP: His main complaint on initial presentation was epigastric pain, goes into the back like a stake going on for 2 yrs food makes pain worse, feels like gets stuck in epigastrium, ok with soup present daily comes and goes nausea and vomit which is food remnants, sometimes sees fresh blood has loose stools 2-3/week sometimes sees blood mixed with stool, going on for 2-3 yrs no grease in stool he does sniff heroin, 2-3 times a week on average no alcohol intake or other drugs he had colonoscopy 2010 and was pos for hemorrhoids had EGD same time, was normal per him never treated for hep c labs reviewed on [address] [facility] imaging 03/2019- scarring noted in midline, some inguinal hernias, gastric distention. RAST with wheat and cow milk allergy, histamine mild elevated IgE- >1200 rechecked rast again and pos for oats and corn, dog dander did have egd/colonoscopy [facility] 2018 had felt 30-40% improved after avoiding allergens and medications he completed mavyret, f/u with pulmonology and allergy teams still on methadone commenced on biologic--dupixent Hep C PCR neg at 12 weeks, so cured EGD-- hiatal hernia 4 cm, esophagitis, savary dilation Cte-- no small bowel pathology or other obvious pathology GES-- 09/2019--normal, but actually rapid emptying capsule x 2 not able to visualize past the stomach even though GES nml He was given levsin and tigan due to persistent sx tigan had helped nausea, was awaiitng levsin still had ongoing sx with upper abdo pain, stabbing sensation, trouble swallowing solids sometimes, weight going up, appetite is good REPT EGD with VCE-- gastritis, VCE with possible chylous cyst at 1 hr 30 min but looked abn with protuberance and erythema, stippled appearance, uncertain if really polyp or submucosal nodule EGD done 06/2020--with dilation, ridging of esophagus, gastritis HE was referred to [facility] and he was being followed up there, he had repeat EGD, colonoscopy, I don;t have results of bx he was pending a small bowel enteroscopy per the last note I saw but it seemed to have not been ordered so I ended up doing it at [facility] on 09/07/20 but it was negative with no masses or worrying lesions noted. 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 I ordered a KUB for him due to abdominal pain and constipation 08/23--moderate stool volume I also ordered a Ct enterogram 12/2021 which only showed a dilated CBD and fatty liver MRCP: CBD dilated, ?filling defects, GB polyps, steatosis, He had ERCP 05/2022, v bulbous ampulla--opened with sphincterotomy EGD: 06/2022: stent removal erosive duodenitis esophagitis MRI L/S--- discogenic changes L5-S1, bulging disc noted INTERIM: He has been having ongoing sinus issues, better after several courses of ABx he has pain on the left side and mid abdomen can be worse after eating he has ongoing constipation he did not like the movantik or relistor as it gives withdrawal symptoms he has not been taking trental as he thinks it also upsets him but willing to give it a try again Assessment & Plan (1) Constipation, 2/2 to inactivity, abdominal positioning, and methdone use, Diabetes 2/ ZHANG wirh severe steatosis on MRI- re try trental PLAN: 1/ will try motegrity 1 mg--can increase if needed --depression is controlled, no SI, mor reactive due to health issue s 2/ re ordered trental [facility] Medical History Dyslipidemia Uncontrolled type 2 diabetes mellitus with hyperglycemia, with long-term current use of insulin Chronic allergic rhinitis Diabetes Complex regional pain syndrome I Deficient knowledge of leg surgery home care Sinusitis Pre-op evaluation Methadone use GERD (gastroesophageal reflux disease) History of kidney stones Internal and external bleeding hemorrhoids Severe persistent asthma Sciatica Arthritis Anemia Hiatal hernia Dysphagia Hepatitis C COPD (chronic obstructive pulmonary disease) HTN (hypertension) History of drug abuse Cellulitis Surgical History History of common bile duct surgery History of hemorrhoidectomy Hx of endoscopy History of colonoscopy History of laparoscopy History of appendectomy Family History Father Diabetes Hypertension Mother Hypertension Social History Housing: Apartment Are you a primary transitional care manager to a significant other at home: No Do you presently have visiting nurse or other home services: No Alcohol intake: never Comment: cramping, relieved partially after using bathroom Patient Tobacco Use Status: Former Tobacco user Tobacco use type: Cigarette e-Cigarette/Vaping Use: Never Used Second Hand Smoke Exposure: No Substance Use Type: Opiates service: No Current occupational status: unemployed Current occupational exposures/hazards: No Cognitive needs: No Hearing needs: No Vision needs: No Telehealth Telehealth Telehealth Platform: [facility] Location of provider rendering services: practice address Location of patient: address on file Patient Identification confirmed using: Name, : Yes Telehealth method: voice only Patient verbally consented to treatment: Yes Patient verbally consented to billing insurance company: Yes Patient informed of any privacy concerns related to visit: Yes Minutes spent on Phone/Video with Pt.: 9 Assessment & Plan Assessment & Plan (1) Chronic constipation: Code(s): K59.09 - Other constipation Category: Medical Plan: see above Coding Level of Care Code Tele Est Pt Level 3 (47850) Diagnoses Chronic constipation K59.09
== END 2024-06-02 11:19 | disposition home or self-care (01) ==
LOC: HO.HGI 10:09
PROVIDERS: PCP Family Medicine; Visit Provider Internal Medicine Gastroenterology
DX: K59.09 Other constipation (principal)
CPT/HCPCS: 99441

== ENCOUNTER → 2024-06-02 10:09 | Outpatient (BNVA) | payer OTHER, SELFPAY | PROVIDERS: PCP Family Medicine; Visit Provider Internal Medicine Gastroenterology ==

== ENCOUNTER 2024-06-03 06:14 | Outpatient (REF) | payer OTHER, SELFPAY | END 2024-06-03 06:15 | disposition home or self-care (01) | LOC: CF 06:14 | PROVIDERS: Visit Provider Anesthesiology | DX: M25.552 Pain in left hip (principal) | CPT/HCPCS: 20610; J2795; J3301; Q9967 ==

== ENCOUNTER 2024-06-03 09:39 | Outpatient (AMB) | payer OTHER, SELFPAY ==
--- NOTE | 2024-06-03 09:56 | MHC.OFFVIS ---
Vital Signs 06/03/24 10:05 06/03/24 11:33 Height 5 ft 7 in 5 ft 7 in Weight 235 lb 235 lb BMI 36.8 36.8 BP 156/99 H 172/90 H Blood Pressure Location Lt brachial Lt brachial Position Sitting Sitting Respiration 16 16 Pulse 97 90 Pulse Source Pulse Oximeter Pulse Oximeter Pulse Oximetry (%) 98 96 Oxygen Delivery Method Room Air Room Air Comment pre-op post-op Intake Visit Reasons: LEFT INTRA-ARTICULAR HIP INJ/ATIVAN REQ Allergies milk [MILK] Allergy (Severe, Verified 06/03/24 10:06) enterocolitis wheat [WHEAT] Allergy (Intermediate, Verified 06/03/24 10:06) enterocolitis amoxicillin [From AUGMENTIN] Adverse Reaction (Intermediate, Verified 06/03/24 10:06) N/V clavulanic acid [From AUGMENTIN] Adverse Reaction (Intermediate, Verified 06/03/24 10:06) N/V corn Adverse Reaction (Mild, Verified 06/03/24 10:06) Nausea and Vomiting ibuprofen [From MOTRIN] Adverse Reaction (Mild, Verified 06/03/24 10:06) ULCERS naproxen [NAPROXEN] Adverse Reaction (Mild, Verified 06/03/24 10:06) ULCERS NSAIDS (Non-Steroidal Anti-Inflamma [NSAIDS] Adverse Reaction (Mild, Verified 06/03/24 10:06) ULCERS oats Adverse Reaction (Mild, Verified 06/03/24 10:06) Abdominal Pain PFSH Medical History Dyslipidemia Uncontrolled type 2 diabetes mellitus with hyperglycemia, with long-term current use of insulin Chronic allergic rhinitis Diabetes Complex regional pain syndrome I Deficient knowledge of leg surgery home care Sinusitis Pre-op evaluation Methadone use GERD (gastroesophageal reflux disease) History of kidney stones Internal and external bleeding hemorrhoids Severe persistent asthma Sciatica Arthritis Anemia Hiatal hernia Dysphagia Hepatitis C COPD (chronic obstructive pulmonary disease) HTN (hypertension) History of drug abuse Cellulitis Surgical History History of common bile duct surgery History of hemorrhoidectomy Hx of endoscopy History of colonoscopy History of laparoscopy History of appendectomy Family History Father Diabetes Hypertension Mother Hypertension Social History Housing: Apartment Are you a primary home care manager rn to a significant other at home: No Do you presently have visiting nurse or other home services: No Alcohol intake: never Comment: cramping, relieved partially after using bathroom Patient Tobacco Use Status: Former Tobacco user Tobacco use type: Cigarette e-Cigarette/Vaping Use: Never Used Second Hand Smoke Exposure: No Substance Use Type: Opiates service: No Current occupational status: unemployed Current occupational exposures/hazards: No Cognitive needs: No Hearing needs: No Vision needs: No Physical Exam Vital Signs: Last Vital Signs Pulse 90 06/03/24 11:33 Resp 16 06/03/24 11:33 BP 172/90 H 06/03/24 11:33 Pulse Ox 96 06/03/24 11:33 Oxygen Delivery Method Room Air 06/03/24 11:33 BMI result Body Mass Index 36.8 Assessment & Plan Assessment & Plan (1) Left hip pain: Code(s): M25.552 - Pain in left hip Category: Medical Plan Left hip steroid injection. Informed consent was explained to the patient. All questions were explained and answered. The patient was taken inside of the operating room where he was positioned on right lateral decubitus on the operating table.. Time-out was performed delineating patient's name and date of , correct site, side, the nature of the procedure, patient's allergy, preoperative antibiotic if needed, need for VT prophylaxis.. All operating room staff was participating in OR time-out procedure. Left hip area of the patient was prepped with ChloraPrep and draped with sterile towels. C-arm was brought over the operating field and picture of left and right lateral views of the bilateral hip joints were delineated on the screen. The smaller joint silhouette was chosen as the target. Projection of the left trochanter to the skin was chosen as the initial needle insertion point. After that the skin and subcutaneous tissues was anesthetized with 2% lidocaine 2.5 mL. 22 gauge 5 in long needle was inserted through the skin and started to advance to the joint space under intermittent lateral and anterior posterior views. When needle entered the capsule of the joint attempt to inject the contrast was performed however the space was so narrow I was not able to inject any of the contrast., the needle was withdrawn slightly and injection of the contrast was performed delineating periarticular spread of the contrast. Following this injection of the ropivacaine 0.5% mixed with Kenalog 40 mg was performed in periarticular fashion. After that needle was withdrawn and sterile Band-Aid was applied. The patient tolerated the procedure well. Orders: Orders FL guidance in treatment room Today M25.559 - Pain in unspecified hip Coding Level of Care Code Procedure Only Diagnoses Left hip pain M25.552
[2024-06-03 10:05] VITALS: BP 156/99; PULSE 97; RESP 16; O2SAT 98; BMI 36.8
[2024-06-03 11:33] VITALS: BP 172/90; PULSE 90; RESP 16; O2SAT 96; BMI 36.8
== END 2024-06-03 11:19 | disposition home or self-care (01) ==
LOC: HO.PMCPRC 09:39
PROVIDERS: PCP Family Medicine; Visit Provider Anesthesiology
DX: M25.552 Pain in left hip (principal)
CPT/HCPCS: 20610; 77002

== ENCOUNTER 2024-06-05 11:37 | Outpatient (AMB) | payer OTHER, SELFPAY ==
--- NOTE | 2024-06-05 12:24 | MHC.PC.OV ---
Vital Signs 06/05/24 12:30 Height 5 ft 7 in Weight 235 lb BMI 36.8 BP 150/80 H Blood Pressure Location Lt brachial Position Sitting Respiration 14 Pulse 95 Pulse Source Pulse Oximeter Pulse Oximetry (%) 96 Oxygen Delivery Method Room Air Intake Visit Reasons: f/u hypertension, LE pain/swelling Intake Note: follow up for leg pain and swelling pt has a provider that follows up with his b/p which he will be see them tomorrow Allergies milk [MILK] Allergy (Severe, Verified 06/05/24 12:25) enterocolitis wheat [WHEAT] Allergy (Intermediate, Verified 06/05/24 12:25) enterocolitis amoxicillin [From AUGMENTIN] Adverse Reaction (Intermediate, Verified 06/05/24 12:25) N/V clavulanic acid [From AUGMENTIN] Adverse Reaction (Intermediate, Verified 06/05/24 12:25) N/V corn Adverse Reaction (Mild, Verified 06/05/24 12:25) Nausea and Vomiting ibuprofen [From MOTRIN] Adverse Reaction (Mild, Verified 06/05/24 12:25) ULCERS naproxen [NAPROXEN] Adverse Reaction (Mild, Verified 06/05/24 12:25) ULCERS NSAIDS (Non-Steroidal Anti-Inflamma [NSAIDS] Adverse Reaction (Mild, Verified 06/05/24 12:25) ULCERS oats Adverse Reaction (Mild, Verified 06/05/24 12:25) Abdominal Pain Medication List - Last Reconciled 06/05/24 by Good Harper MD albuterol sulfate 90 mcg/actuation 2 puffs PO Q6H PRN albuterol sulfate 2.5 mg (3 mL) inhalation Q6H PRN 30 days atorvastatin 20 mg PO BEDTIME blood pressure monitor Automatic, Digital. Dx: I10. Daily As directed, 999 days/lifetime blood sugar diagnostic (FreeStyle Lite Strips) As directed, to test blood sugar 4 times a day blood-glucose meter (FreeStyle Lite Meter kit) DX: E11.9, test blood sugar 2 times a day, duration 999 days blood-glucose meter,continuous (FreeStyle James 3 [place]) As directed blood-glucose sensor (FreeStyle James 3 Sensor device) Apply every 14 days As directed cane Daily As directed. 999 days crutches (pair of crutches) As directed crutches (pair of crutches) As directed Dupixent Pen (dupilumab) 300 mg (2 mL) subcut Q2W NS glucose (Dex4 Glucose) 16 grams (4 x 4 gram) PO Q15M PRN Grab bar As directed, 999 days ipratropium-albuterol 0.5 mg-3 mg(2.5 mg base)/3 mL 3 mL inhalation Q6H PRN lancets (FreeStyle Lancets) As directed lancets (FreeStyle Lancets) As directed bs checks 2-3 times per day Lantus Solostar U-100 Insulin (insulin glargine) 25 units (0.25 mL) subcut QAM NS lisinopril 30 mg PO DAILY 30 days magnesium hydroxide (Milk of Magnesia) 20 mL PO DAILY magnesium oxide mg PO methadone 40 mg PO DAILY miscellaneous medical supply Hand-held?shower?head,?As directed, 999 days miscellaneous medical supply 2 med planners; 1 urinal; 1 bed red; 1 commode; 2 grab bars for bed miscellaneous medical supply quad cane small base miscellaneous medical supply Toilet?see?raised,?As directed, 999 days montelukast 10 mg PO BEDTIME mupirocin 2% 1 appl topical BID 7 days nebulizers As directed Novolog FlexPen U-100 Insulin (insulin aspart U-100) Inject 30 units before breakfast, 20 units before lunch and 20 units before dinner subcutaneously 3 times a day; NS omeprazole 20 mg PO DAILY ondansetron 4 mg PO Q8H PRN 30 days peg-electrolyte soln 420 gram 240 mL PO Q10M pen needle, diabetic (BD Lynda 2nd Gen Pen Needle) DIRECTED INJECTS 4 X/DAY pentoxifylline ER 400 mg PO TID polyethylene glycol 3350 (Miralax) 17 grams PO DAILY PRN prucalopride (Motegrity) 1 mg PO DAILY semaglutide (Ozempic) 0.25 mg (0.368 mL) subcut QWEEK Shower Chair As directed sodium chloride 0.65% (Saline Nasal) 2 sprays intranasal Q2H PRN sodium phosphates 19-7 gram/118 mL (Fleet Enema) 118 mL [place] BEDTIME PRN Tobacco use date assessed: 12/13/23 Dental Screening Dental Screen Date: 01/19/24 HPI f/u hypertension, LE pain/swelling HPI Details 54 y/o male presents to f/u hypertension, chronic conditions. Blood pressure today elevated at 150/80, 95p. He is on lisinopril 30mg daily. Also following up LE pain/swelling. Notes osteoarthritis of L hip. Has been having significant pain. [facility] Medical History Dyslipidemia Uncontrolled type 2 diabetes mellitus with hyperglycemia, with long-term current use of insulin Chronic allergic rhinitis Diabetes Complex regional pain syndrome I Deficient knowledge of leg surgery home care Sinusitis Pre-op evaluation Methadone use GERD (gastroesophageal reflux disease) History of kidney stones Internal and external bleeding hemorrhoids Severe persistent asthma Sciatica Arthritis Anemia Hiatal hernia Dysphagia Hepatitis C COPD (chronic obstructive pulmonary disease) HTN (hypertension) History of drug abuse Cellulitis Surgical History History of common bile duct surgery History of hemorrhoidectomy Hx of endoscopy History of colonoscopy History of laparoscopy History of appendectomy Family History Father Diabetes Hypertension Mother Hypertension Social History Housing: Apartment Are you a primary child care attendant to a significant other at home: No Do you presently have visiting nurse or other home services: No Alcohol intake: never Comment: cramping, relieved partially after using bathroom Patient Tobacco Use Status: Former Tobacco user Tobacco use type: Cigarette e-Cigarette/Vaping Use: Never Used Second Hand Smoke Exposure: No Substance Use Type: Opiates service: No Current occupational status: unemployed Current occupational exposures/hazards: No Cognitive needs: No Hearing needs: No Vision needs: No Questionnaire Thrive Questionnaire Date Thrive assessed: 11/17/22 CORNELIUS-7 AMB Questionnaire CORNELIUS-7 Date CORNELIUS - 7 assessed: 11/17/22 Source: Developed by Drs. Sigifredo Matson, Sangeeta Sandy, Ty Davis and colleagues, with an educational frida from [employer]. Review of Systems Const Denies chills, Denies fatigue, Denies fever(s), Denies headache(s) and Denies weakness ENT Denies dizziness and Denies headache(s) Card Denies dyspnea Resp Denies cough, Denies dyspnea, Denies wheezing and Denies other (shortness of breath) Musc Denies numbness and Denies tingling Neuro Denies dizziness, Denies headache(s), Denies numbness, Denies tingling and Denies weakness Psych Denies anxiety and Denies depression Endo Denies fatigue Aller/Immun Denies wheezing Physical exam (Primary Care) Vital Signs: Last Vital Signs Pulse 95 06/05/24 12:30 Resp 14 06/05/24 12:30 BP 150/80 H 06/05/24 12:30 Pulse Ox 96 06/05/24 12:30 Oxygen Delivery Method Room Air 06/05/24 12:30 BMI result Body Mass Index 36.8 Tobacco/Smoking Status: Tobacco use Status Tobacco use date assessed 12/13/23 06/05/24 12:30 Patient Tobacco Use Status Former Tobacco user 06/05/24 12:30 Tobacco use type Cigarette 06/05/24 12:30 e-Cigarette/Vaping Use Never Used 06/05/24 12:30 Thrive Assessment: Date of Thrive Assessment Date Thrive assessed 11/17/22 06/05/24 12:30 Const General: well developed; No acute distress Nutritional Appearance: well nourished Orientation/consciousness: patient oriented x3 HENMT Head: Yes normocephalic and Yes atraumatic Eyes General: appearance normal, both eyes and all related structures Pupils: Equal, round and reactive pupils present EOM: EOMs intact bilaterally Resp Effort & Inspection: normal respiratory effort Neuro General: patient oriented x3 and gait normal Cranial nerves: Yes Equal, round and reactive pupils present Psych Affect: normal affect Coding Level of Care Code Est Pt Level 4 (98977) Diagnoses Primary hypertension I10 Hypertension type: primary hypertension Osteoarthritis of left hip M16.12 Pain of left lower extremity M79.605 Lower extremity edema R60.0 Assessment & Plan Assessment & Plan (1) HTN (hypertension): Code(s): I10 - Essential (primary) hypertension Category: Medical Qualifiers: Hypertension type: primary hypertension Qualified Code(s): I10 - Essential (primary) hypertension Plan: BP still too high Did?not?tolerate?lisinopril?40?mg?daily?but?does?tolerate?lisinopril?30?mg?daily. Sent?script?for?lisinopril?30?mg?daily Will?add?hydrochlorothiazide which?may?also?help?with?lower?extremity?edema (2) Osteoarthritis of left hip: Code(s): M16.12 - Unilateral primary osteoarthritis, left hip Category: Medical Plan: Patient?was?referred?to?pain?management?and?after?workup?he?has?been?referred?to?Ortho?for?hip?replacement?surgery Follow-up?with?ortho?as?recommended (3) Pain of left lower extremity: Code(s): M79.605 - Pain in left leg Category: Medical Plan: Left?calf?pain?and?swelling?and?edema Some?of?his?pain?is?referred?from?his?hip?but?also?has?some?venous?insufficiency Workup?for?DVT?was?negative I?had?referred?patient?to vascular?surgery?but?he?has?not?heard?back?from?them?yet.??Asking?office?to?check?on?the?status?of?this As?above,?giving?him?hydrochlorothiazide?for?better?blood?pressure?control?and?this?may?also?help?with?lower?extremity?edema?someone (4) Lower extremity edema: Code(s): R60.0 - Localized edema Category: Medical Plan: As?above Medications: New hydrocodone-acetaminophen 5-325 mg MassPat Verified. Partial Fill upon patient request. 1 tab PO BID 30 days PRN 30 tabs 0RF pain
[2024-06-05 12:30] VITALS: BP 150/80; PULSE 95; RESP 14; O2SAT 96; BMI 36.8
== END 2024-06-05 13:26 | disposition home or self-care (01) ==
PROVIDERS: PCP Family Medicine; Visit Provider Family Medicine
DX: I10 Essential (primary) hypertension (principal); M16.12 Unilateral primary osteoarthritis, left hip; M79.605 Pain in left leg; R60.0 Localized edema

== ENCOUNTER → 2024-06-05 11:37 | Outpatient (BNVA) | payer OTHER, SELFPAY | PROVIDERS: PCP Family Medicine; Visit Provider Family Medicine | DX: I10 Essential (primary) hypertension (principal); M16.12 Unilateral primary osteoarthritis, left hip; M79.605 Pain in left leg; R60.0 Localized edema | CPT/HCPCS: 99212 ==

== ENCOUNTER 2024-06-06 15:02 | Outpatient (AMB) | payer OTHER, SELFPAY ==
--- NOTE | 2024-06-06 15:09 | MHC.OFFVIS ---
Vital Signs 06/06/24 15:10 Height 5 ft 7 in Weight 235 lb 14.314 oz BMI 36.9 BP 160/90 H Blood Pressure Location Rt brachial Position Sitting Pulse 96 Pulse Source Pulse Oximeter Intake Visit Reasons: DM/CONFIRMED Intake Note: Patient presents today for a follow-up on Type 2 Diabetes Mellitus: Last Diabetic eye exam was on: DUE Last Podiatry exam was on: Does not see a Director Of Sales Marketing Most recent HbA1c: 7.8%, 06/06/2024 Random Glucose- 271 mg/dL, Today [employer]us[employer]sembler Required: No Accompanied by: Self / Same As Patient Allergies milk [MILK] Allergy (Severe, Verified 06/06/24 15:12) enterocolitis wheat [WHEAT] Allergy (Intermediate, Verified 06/06/24 15:12) enterocolitis amoxicillin [From AUGMENTIN] Adverse Reaction (Intermediate, Verified 06/06/24 15:12) N/V clavulanic acid [From AUGMENTIN] Adverse Reaction (Intermediate, Verified 06/06/24 15:12) N/V corn Adverse Reaction (Mild, Verified 06/06/24 15:12) Nausea and Vomiting ibuprofen [From MOTRIN] Adverse Reaction (Mild, Verified 06/06/24 15:12) ULCERS naproxen [NAPROXEN] Adverse Reaction (Mild, Verified 06/06/24 15:12) ULCERS NSAIDS (Non-Steroidal Anti-Inflamma [NSAIDS] Adverse Reaction (Mild, Verified 06/06/24 15:12) ULCERS oats Adverse Reaction (Mild, Verified 06/06/24 15:12) Abdominal Pain Medication List - Last Reconciled 06/06/24 by Suzie Motta PA-C albuterol sulfate 90 mcg/actuation 2 puffs PO Q6H PRN albuterol sulfate 2.5 mg (3 mL) inhalation Q6H PRN 30 days atorvastatin 20 mg PO BEDTIME blood pressure monitor Automatic, Digital. Dx: I10. Daily As directed, 999 days/lifetime blood sugar diagnostic (FreeStyle Lite Strips) As directed, to test blood sugar 4 times a day blood-glucose meter (FreeStyle Lite Meter kit) DX: E11.9, test blood sugar 2 times a day, duration 999 days blood-glucose meter,continuous (FreeStyle James 3 [place]) As directed blood-glucose sensor (FreeStyle James 3 Sensor device) Apply every 14 days As directed cane Daily As directed. 999 days crutches (pair of crutches) As directed crutches (pair of crutches) As directed Dupixent Pen (dupilumab) 300 mg (2 mL) subcut Q2W NS glucose (Dex4 Glucose) 16 grams (4 x 4 gram) PO Q15M PRN Grab bar As directed, 999 days hydrochlorothiazide 12.5 mg PO QAM 30 days hydrocodone-acetaminophen 5-325 mg 1 tab PO BID PRN 30 days ipratropium-albuterol 0.5 mg-3 mg(2.5 mg base)/3 mL 3 mL inhalation Q6H PRN lancets (FreeStyle Lancets) As directed lancets (FreeStyle Lancets) As directed bs checks 2-3 times per day Lantus Solostar U-100 Insulin (insulin glargine) 25 units (0.25 mL) subcut QAM NS lisinopril 30 mg PO DAILY 30 days magnesium hydroxide (Milk of Magnesia) 20 mL PO DAILY magnesium oxide mg PO methadone 40 mg PO DAILY miscellaneous medical supply Hand-held?shower?head,?As directed, 999 days miscellaneous medical supply 2 med planners; 1 urinal; 1 bed red; 1 commode; 2 grab bars for bed miscellaneous medical supply quad cane small base miscellaneous medical supply Toilet?see?raised,?As directed, 999 days montelukast 10 mg PO BEDTIME mupirocin 2% 1 appl topical BID 7 days nebulizers As directed Novolog FlexPen U-100 Insulin (insulin aspart U-100) Inject 30 units before breakfast, 20 units before lunch and 20 units before dinner subcutaneously 3 times a day; NS omeprazole 20 mg PO DAILY ondansetron 4 mg PO Q8H PRN 30 days peg-electrolyte soln 420 gram 240 mL PO Q10M pen needle, diabetic (BD Lynda 2nd Gen Pen Needle) DIRECTED INJECTS 4 X/DAY pentoxifylline ER 400 mg PO TID polyethylene glycol 3350 (Miralax) 17 grams PO DAILY PRN prucalopride (Motegrity) 1 mg PO DAILY Shower Chair As directed sodium chloride 0.65% (Saline Nasal) 2 sprays intranasal Q2H PRN sodium phosphates 19-7 gram/118 mL (Fleet Enema) 118 mL DE BEDTIME PRN PFSH Medical History Dyslipidemia Uncontrolled type 2 diabetes mellitus with hyperglycemia, with long-term current use of insulin Chronic allergic rhinitis Diabetes Complex regional pain syndrome I Deficient knowledge of leg surgery home care Sinusitis Pre-op evaluation Methadone use GERD (gastroesophageal reflux disease) History of kidney stones Internal and external bleeding hemorrhoids Severe persistent asthma Sciatica Arthritis Anemia Hiatal hernia Dysphagia Hepatitis C COPD (chronic obstructive pulmonary disease) HTN (hypertension) History of drug abuse Cellulitis Surgical History History of common bile duct surgery History of hemorrhoidectomy Hx of endoscopy History of colonoscopy History of laparoscopy History of appendectomy Family History Father Diabetes Hypertension Mother Hypertension Social History Housing: Apartment Are you a primary customer care associate to a significant other at home: No Do you presently have visiting nurse or other home services: No Alcohol intake: never Comment: cramping, relieved partially after using bathroom Patient Tobacco Use Status: Former Tobacco user Tobacco use type: Cigarette e-Cigarette/Vaping Use: Never Used Second Hand Smoke Exposure: No Substance Use Type: Opiates service: No Current occupational status: unemployed Current occupational exposures/hazards: No Cognitive needs: No Hearing needs: No Vision needs: No Office Procedures Glucose Monitoring Details Details: see [facility] [id number] - Glucose monitoring, continuous-physician I&R Procedure code (CPT) selection complete Results AMB Hemoglobin A1c AMB Hemoglobin A1c 7.8 % Last Edit by DAIN Smyth on 06/06/24 15:26 Assessment & Plan Assessment & Plan Orders: Orders AMB Hemoglobin A1c Today E11.65 - Type 2 diabetes mellitus with hyperglycemia, Z79.4 - shelter (current) use of insulin Medications: New semaglutide (Ozempic) 0.5 mg (0.736 mL) subcut QWEEK 3 mL 2RF Changed From Lantus Solostar U-100 Insulin (insulin glargine) 25 units (0.25 mL) subcut QAM 15 mL 4RF NS To Lantus Solostar U-100 Insulin (insulin glargine) 25 units (0.25 mL) subcut QPM 15 mL 4RF NS Coding CPT Codes Details - CPT: 34351 - Glucose monitoring, continuous-physician I&R ([id number])
--- NOTE | 2024-06-06 15:09 | MHC.OFFVIS ---
Vital Signs 06/06/24 15:10 Height 5 ft 7 in Weight 235 lb 14.314 oz BMI 36.9 BP 160/90 H Blood Pressure Location Rt brachial Position Sitting Pulse 96 Pulse Source Pulse Oximeter Intake Visit Reasons: DM/CONFIRMED Allergies milk [MILK] Allergy (Severe, Verified 06/06/24 15:12) enterocolitis wheat [WHEAT] Allergy (Intermediate, Verified 06/06/24 15:12) enterocolitis amoxicillin [From AUGMENTIN] Adverse Reaction (Intermediate, Verified 06/06/24 15:12) N/V clavulanic acid [From AUGMENTIN] Adverse Reaction (Intermediate, Verified 06/06/24 15:12) N/V corn Adverse Reaction (Mild, Verified 06/06/24 15:12) Nausea and Vomiting ibuprofen [From MOTRIN] Adverse Reaction (Mild, Verified 06/06/24 15:12) ULCERS naproxen [NAPROXEN] Adverse Reaction (Mild, Verified 06/06/24 15:12) ULCERS NSAIDS (Non-Steroidal Anti-Inflamma [NSAIDS] Adverse Reaction (Mild, Verified 06/06/24 15:12) ULCERS oats Adverse Reaction (Mild, Verified 06/06/24 15:12) Abdominal Pain Medication List - Last Reconciled 06/06/24 by Suzie Motta PA-C albuterol sulfate 90 mcg/actuation 2 puffs PO Q6H PRN albuterol sulfate 2.5 mg (3 mL) inhalation Q6H PRN 30 days atorvastatin 20 mg PO BEDTIME blood pressure monitor Automatic, Digital. Dx: I10. Daily As directed, 999 days/lifetime blood sugar diagnostic (FreeStyle Lite Strips) As directed, to test blood sugar 4 times a day blood-glucose meter (FreeStyle Lite Meter kit) DX: E11.9, test blood sugar 2 times a day, duration 999 days blood-glucose meter,continuous (FreeStyle James 3 [place]) As directed blood-glucose sensor (FreeStyle James 3 Sensor device) Apply every 14 days As directed cane Daily As directed. 999 days crutches (pair of crutches) As directed crutches (pair of crutches) As directed Dupixent Pen (dupilumab) 300 mg (2 mL) subcut Q2W NS glucose (Dex4 Glucose) 16 grams (4 x 4 gram) PO Q15M PRN Grab bar As directed, 999 days hydrochlorothiazide 12.5 mg PO QAM 30 days hydrocodone-acetaminophen 5-325 mg 1 tab PO BID PRN 30 days ipratropium-albuterol 0.5 mg-3 mg(2.5 mg base)/3 mL 3 mL inhalation Q6H PRN lancets (FreeStyle Lancets) As directed lancets (FreeStyle Lancets) As directed bs checks 2-3 times per day Lantus Solostar U-100 Insulin (insulin glargine) 25 units (0.25 mL) subcut QAM NS lisinopril 30 mg PO DAILY 30 days magnesium hydroxide (Milk of Magnesia) 20 mL PO DAILY magnesium oxide mg PO methadone 40 mg PO DAILY miscellaneous medical supply Hand-held?shower?head,?As directed, 999 days miscellaneous medical supply 2 med planners; 1 urinal; 1 bed red; 1 commode; 2 grab bars for bed miscellaneous medical supply quad cane small base miscellaneous medical supply Toilet?see?raised,?As directed, 999 days montelukast 10 mg PO BEDTIME mupirocin 2% 1 appl topical BID 7 days nebulizers As directed Novolog FlexPen U-100 Insulin (insulin aspart U-100) Inject 30 units before breakfast, 20 units before lunch and 20 units before dinner subcutaneously 3 times a day; NS omeprazole 20 mg PO DAILY ondansetron 4 mg PO Q8H PRN 30 days peg-electrolyte soln 420 gram 240 mL PO Q10M pen needle, diabetic (BD Lynda 2nd Gen Pen Needle) DIRECTED INJECTS 4 X/DAY pentoxifylline ER 400 mg PO TID polyethylene glycol 3350 (Miralax) 17 grams PO DAILY PRN prucalopride (Motegrity) 1 mg PO DAILY Shower Chair As directed sodium chloride 0.65% (Saline Nasal) 2 sprays intranasal Q2H PRN sodium phosphates 19-7 gram/118 mL (Fleet Enema) 118 mL VT BEDTIME PRN HPI HPI DM/CONFIRMED: Details: Patient is a 54-year-old male with a significant past medical history of hypertension, type 2 diabetes, ED, dyslipidemia, CKD, chronic pain syndrome, hep C, COPD, methadone use presenting today for a diabetic follow-up. Endo: His last A1c was 7.5%. He is on Lantus 25 units at night, NovoLog t.i.d. 20-30 units. He was started on ozempic. -He has tried metformin but did not tolerate. He has tried trulicity but did not tolerate due to vomiting. mounjaro and he states it was effective but was getting abdominal pain and nausea with it. His cgm from today shows usage 83%, avg blood sugar is 213, 8.4%. He is very high 23%, 47% high, 30% in target, 0% low. -Last eye exam: end of Sep 2023- states that there were some findings (does not recall name of eye issues) and is seeing retina specialist -Last foot exam: sees Dr. Eastman. CV: blood pressure in the office is 160/90. He is taking the lisinopril 30 mg and states yesterday he was started on hctz but just picked them up this afternoon. Plans to start tomorrow. PFSH Medical History Dyslipidemia Uncontrolled type 2 diabetes mellitus with hyperglycemia, with long-term current use of insulin Chronic allergic rhinitis Diabetes Complex regional pain syndrome I Deficient knowledge of leg surgery home care Sinusitis Pre-op evaluation Methadone use GERD (gastroesophageal reflux disease) History of kidney stones Internal and external bleeding hemorrhoids Severe persistent asthma Sciatica Arthritis Anemia Hiatal hernia Dysphagia Hepatitis C COPD (chronic obstructive pulmonary disease) HTN (hypertension) History of drug abuse Cellulitis Surgical History History of common bile duct surgery History of hemorrhoidectomy Hx of endoscopy History of colonoscopy History of laparoscopy History of appendectomy Family History Father Diabetes Hypertension Mother Hypertension Social History Housing: Apartment Are you a primary career professional to a significant other at home: No Do you presently have visiting nurse or other home services: No Alcohol intake: never Comment: cramping, relieved partially after using bathroom Patient Tobacco Use Status: Former Tobacco user Tobacco use type: Cigarette e-Cigarette/Vaping Use: Never Used Second Hand Smoke Exposure: No Substance Use Type: Opiates service: No Current occupational status: unemployed Current occupational exposures/hazards: No Cognitive needs: No Hearing needs: No Vision needs: No Physical Exam Const Orientation/consciousness: patient oriented x3 Neck Thyroid: Thyroid normal Lymphatic: no lymphadenopathy noted Resp Auscultation: clear to auscultation bilaterally Cardio Rate: regular rate Rhythm: regular rhythm Heart sounds: S1 normal heart sound present and S2 normal heart sound present Skin General skin exam: no rashes or lesions noted Neuro General: patient oriented x3, gait normal and no focal motor deficits Office Procedures Glucose Monitoring Details Details: see [facility] [id number] - Glucose monitoring, continuous-physician I&R Procedure code (CPT) selection complete Results AMB Hemoglobin A1c AMB Hemoglobin A1c 7.8 % Last Edit by DAIN Smyth on 06/06/24 15:26 Results Reviewed Results Reviewed: Laboratory Tests 02/25/24 02/25/24 04/01/24 09:07 09:12 15:51 Sodium 138 Potassium 4.5 Chloride 101 Carbon Dioxide 27 Anion Gap 15 BUN 11 Creatinine 1.08 Estimated GFR > 60 Random Glucose 256 H Estimat Average Glucose 148 Hemoglobin A1c % 6.8 H Triglycerides 258 H Cholesterol 178 LDL Cholesterol, Calc 92 HDL Cholesterol 35 L Urine Creatinine 154.91 Urine Microalbumin 30.0 Microalb/Creat Ratio 19.3 Assessment & Plan Assessment & Plan (1) Uncontrolled type 2 diabetes mellitus with hyperglycemia, with long-term current use of insulin: Code(s): E11.65 - Type 2 diabetes mellitus with hyperglycemia; Z79.4 - terminologist (current) use of insulin Category: Medical Plan: increased ozempic to 0.5 mg. Continue novolog, increased lantus to 25 units. Short term follow up in 1 month or sooner prn. Pt understands and agrees with the plan. (2) HTN (hypertension): Code(s): I10 - Essential (primary) hypertension Category: Medical Qualifiers: Hypertension type: primary hypertension Qualified Code(s): I10 - Essential (primary) hypertension Plan: bp elevated today. he will start meds tomorrow. (3) HLD (hyperlipidemia): Code(s): E78.5 - Hyperlipidemia, unspecified Category: Medical Plan: continue current plan. labs prior to next appointment Orders: Orders AMB Hemoglobin A1c Today E11.65 - Type 2 diabetes mellitus with hyperglycemia, Z79.4 - terminologist (current) use of insulin Medications: New semaglutide (Ozempic) 0.5 mg (0.736 mL) subcut QWEEK 3 mL 2RF Changed From Lantus Solostar U-100 Insulin (insulin glargine) 25 units (0.25 mL) subcut QAM 15 mL 4RF NS To Lantus Solostar U-100 Insulin (insulin glargine) 25 units (0.25 mL) subcut QPM 15 mL 4RF NS Coding Level of Care Code Est Pt Level 4 (46081) Diagnoses Uncontrolled type 2 diabetes mellitus with hyperglycemia, with long-term current use of insulin E11.65; Z79.4 Primary hypertension I10 Hypertension type: primary hypertension HLD (hyperlipidemia) E78.5 CPT Codes Details - CPT: 86949 - Glucose monitoring, continuous-physician I&R ([id number])
[2024-06-06 15:10] VITALS: BP 160/90; PULSE 96; BMI 36.9
[2024-06-06 15:20] LABS: Glucose, Whole Blood 271 mg/dL (60-115)
== END 2024-06-06 15:30 | disposition home or self-care (01) ==
PROVIDERS: PCP Family Medicine; Visit Provider Physician Assistant
DX: E11.65 Type 2 diabetes mellitus with hyperglycemia (principal); Z79.4 Long term (current) use of insulin; I10 Essential (primary) hypertension; E78.5 Hyperlipidemia, unspecified

== ENCOUNTER → 2024-06-06 15:02 | Outpatient (BNVA) | payer OTHER, SELFPAY | PROVIDERS: PCP Family Medicine; Visit Provider Physician Assistant | DX: E11.65 Type 2 diabetes mellitus with hyperglycemia (principal); E78.5 Hyperlipidemia, unspecified; I10 Essential (primary) hypertension; Z79.4 Long term (current) use of insulin; Z71.3 Dietary counseling and surveillance | CPT/HCPCS: 82947; 83036; 99212 ==

== ENCOUNTER 2024-06-13 14:06 | Outpatient (AMB) | payer OTHER, SELFPAY ==
[2024-06-13 14:13] VITALS: BP 189/108; PULSE 146; RESP 16; O2SAT 96; BMI 36.5
--- NOTE | 2024-06-13 14:13 | A.OFFVIS_ITS ---
Vital Signs 3 06/13/24 14:13 Height 5 ft 7 in Weight 233 lb BMI 36.5 BP 189/108 H Position Sitting Respiration 16 Pulse 146 H Pulse Source Palpation Pulse Oximetry (%) 96 Oxygen Delivery Method Room Air Intake Visit Reasons: follow up per prince Allergies milk [MILK] Allergy (Severe, Verified 06/06/24 15:12) enterocolitis wheat [WHEAT] Allergy (Intermediate, Verified 06/06/24 15:12) enterocolitis amoxicillin [From AUGMENTIN] Adverse Reaction (Intermediate, Verified 06/06/24 15:12) N/V clavulanic acid [From AUGMENTIN] Adverse Reaction (Intermediate, Verified 06/06/24 15:12) N/V corn Adverse Reaction (Mild, Verified 06/06/24 15:12) Nausea and Vomiting ibuprofen [From MOTRIN] Adverse Reaction (Mild, Verified 06/06/24 15:12) ULCERS naproxen [NAPROXEN] Adverse Reaction (Mild, Verified 06/06/24 15:12) ULCERS NSAIDS (Non-Steroidal Anti-Inflamma [NSAIDS] Adverse Reaction (Mild, Verified 06/06/24 15:12) ULCERS oats Adverse Reaction (Mild, Verified 06/06/24 15:12) Abdominal Pain HPI Comments Details: Kale presents back to the office today for follow-up Complaining of pain to the left 2nd 3rd and 4th toes. States this has been ongoing for several months. Also reports they feel cold and he will have intermittent swelling of his bilateral lower extremities. He does take diuretics for his lower extremity edema Denies current use of anticoagulants. Denies history of DVT, PE. Prior: Kale presents back to the office today for follow up c/o left hip pain for last 2 years, has been worse over the last 8 months completed PT less than 6 months ago without improvement of his pain using a cane for ambulation pain worse with sitting and walking MRI 2022 reviewed, results as per below Previous visit: Kale is a very pleasant 53-year-old male who presented to the office today for follow-up right lower extremity pain /numbness and left hip pain. Patient previously seen by Dr. Hernandez with diagnostic testing and most recently underwent a right saphenous nerve sprint with no improvement. He was then planned for a right femoral nerve sprint but states that he did not feel this would provide benefit of pain relief given the 1st sprint was unhelpful. He endorses pain from the right sarkar down to the foot with noticeable skin discoloration and hair loss. He does state that if he walks long distances the leg will swell. He had been evaluated by vascular and was told to wear compression socks. He has been working on weight loss to help with pain And diabetes but states it is difficult due to his limited mobility. Patient also complaining of left hip pain, he was evaluated by orthopedics in February but has yet to follow-up in their office. Prior: 52-year-old male presenting today for a follow-up of MRI results ? He reports swelling in his leg while walking. He has discoloration of the skin on his leg that started recently. He has tried using compressor stocking in the past. He has difficulty walking his dog and visiting the park with his daughter. He reports pain in his leg to the extent that his blood pressure reading starts elevating. He was recently diagnosed with diabetes mellitus. He has started gaining weight recently. He recently underwent an MRI of the lumbar spine without contrast. He no longer reports back pain. Pain is described mostly on the anterior sarkar and in the calf at the site of his previous surgery. He is not interested in any kind of spine intervention. [facility] Medical History Dyslipidemia Uncontrolled type 2 diabetes mellitus with hyperglycemia, with long-term current use of insulin Chronic allergic rhinitis Diabetes Complex regional pain syndrome I Deficient knowledge of leg surgery home care Sinusitis Pre-op evaluation Methadone use GERD (gastroesophageal reflux disease) History of kidney stones Internal and external bleeding hemorrhoids Severe persistent asthma Sciatica Arthritis Anemia Hiatal hernia Dysphagia Hepatitis C COPD (chronic obstructive pulmonary disease) HTN (hypertension) History of drug abuse Cellulitis Surgical History History of common bile duct surgery History of hemorrhoidectomy Hx of endoscopy History of colonoscopy History of laparoscopy History of appendectomy Family History Father Diabetes Hypertension Mother Hypertension Social History Housing: Apartment Are you a primary home care chaplain to a significant other at home: No Do you presently have visiting nurse or other home services: No Alcohol intake: never Comment: cramping, relieved partially after using bathroom Patient Tobacco Use Status: Former Tobacco user Tobacco use type: Cigarette e-Cigarette/Vaping Use: Never Used Second Hand Smoke Exposure: No Substance Use Type: Opiates service: No Current occupational status: unemployed Current occupational exposures/hazards: No Cognitive needs: No Hearing needs: No Vision needs: No Review of Systems Const All systems reviewed & are unremarkable except as noted in HPI and below Physical Exam Vital Signs: Last Vital Signs Pulse Ox 96 06/13/24 14:13 Oxygen Delivery Method Room Air 06/13/24 14:13 BMI result Body Mass Index 36.5 General: awake, alert, oriented. Answers questions appropriately. Fully engaged in examination. Skin: warm, dry, intact HEENT: Normocephalic. Hearing intact. Cardiac: External chest normal in appearance. Respiratory: No cough, audible wheezing or stridor. Abdomen: without gross distension. MS: No obvious swelling or deformities. Left foot: 2+ DP and PT pulses. Foot pink warm and dry. Good cap refill all toes. 2nd 3rd and 4th toes slightly cool to touch compared to the rest of the foot. Able to wiggle the toes without difficulty. Neurological: Oriented to person, place, time and situation. Thought process intact. Ambulates with the use of a cane Psychiatric: Appropriate mood and affect. Good judgment and insight. Results Reviewed Results Reviewed: 05/21/2023 MRI Assessment & Plan Assessment & Plan (1) Lower extremity edema: Code(s): R60.0 - Localized edema Category: Medical (2) Pain of left lower extremity: Code(s): M79.605 - Pain in left leg Category: Medical Plan Kale presented to the office today for evaluation management of his left foot pain Ultrasound ordered for evaluation Referral placed to vascular surgery for eval Patient's vital signs were reviewed and rechecked. Heart remained elevated in the 140s by palpation. It was recommended that patient be taken to the emergency room via ambulance. He adamantly refused EMS transport but agrees to go straight to the ER for evaluation. Advised of the dangers and risks including CVA, NH, cardiac arrest. All questions and concerns were answered, patient agrees with the plan. Follow up as needed Orders: Orders 2 US venous duplex LE LT Today M79.605 - Pain in left leg, R60.0 - Localized edema Referrals 2 Vascular Surgery Referral R60.0 - Localized edema Coding Level of Care Code Est Pt Level 3 (13190) Complex EM visit Add On G2211 Diagnoses Lower extremity edema R60.0 Pain of left lower extremity M79.605
== END 2024-06-13 14:38 | disposition home or self-care (01) ==
PROVIDERS: PCP Family Medicine; Visit Provider Registered Nurse Emergency
DX: R60.0 Localized edema (principal); M79.605 Pain in left leg
CPT/HCPCS: 99213; G2211

== ENCOUNTER → 2024-06-13 14:06 | Outpatient (BNVA) | payer OTHER, SELFPAY | PROVIDERS: PCP Family Medicine; Visit Provider Registered Nurse Emergency | DX: R60.0 Localized edema (principal); M79.605 Pain in left leg | CPT/HCPCS: 99212 ==

== ENCOUNTER 2024-06-19 12:47 | Outpatient (AMB) | payer OTHER, SELFPAY ==
--- NOTE | 2024-06-19 12:58 | A.OFFVIS_ITS ---
Intake Visit Reasons: ov- Left hip, discuss THR Intake Note: Kale is a 54 year old male who presents today for a follow up of his left hip pain. He received an injection with Dr. Mccormack on 06/03/24. At his last visit an MRI was ordered and completed at [facility]. He presents today to discuss possible MILA CONCLUSION: 1. There is no evidence of any acute abnormality of the left hip joint. 2. No obvious bone marrow edema or bony impingement is seen. Allergies milk [MILK] Allergy (Severe, Verified 06/06/24 15:12) enterocolitis wheat [WHEAT] Allergy (Intermediate, Verified 06/06/24 15:12) enterocolitis amoxicillin [From AUGMENTIN] Adverse Reaction (Intermediate, Verified 06/06/24 15:12) N/V clavulanic acid [From AUGMENTIN] Adverse Reaction (Intermediate, Verified 06/06/24 15:12) N/V corn Adverse Reaction (Mild, Verified 06/06/24 15:12) Nausea and Vomiting ibuprofen [From MOTRIN] Adverse Reaction (Mild, Verified 06/06/24 15:12) ULCERS naproxen [NAPROXEN] Adverse Reaction (Mild, Verified 06/06/24 15:12) ULCERS NSAIDS (Non-Steroidal Anti-Inflamma [NSAIDS] Adverse Reaction (Mild, Verified 06/06/24 15:12) ULCERS oats Adverse Reaction (Mild, Verified 06/06/24 15:12) Abdominal Pain HPI HPI ov- Left hip, discuss THR: Details: Kale is to try old gentleman with 2 years of left hip pain. This all stems from an incident in which he injured his left hip during a surgical procedure apparently. He was seen in pain management and he was told he has a hip replacement. An MRI and plain films however are unremarkable and do not show osteoarthritis. Walks with a externally rotated left hip and complains of severe constant pain. [facility] Medical History Dyslipidemia Uncontrolled type 2 diabetes mellitus with hyperglycemia, with long-term current use of insulin Chronic allergic rhinitis Diabetes Complex regional pain syndrome I Deficient knowledge of leg surgery home care Sinusitis Pre-op evaluation Methadone use GERD (gastroesophageal reflux disease) History of kidney stones Internal and external bleeding hemorrhoids Severe persistent asthma Sciatica Arthritis Anemia Hiatal hernia Dysphagia Hepatitis C COPD (chronic obstructive pulmonary disease) HTN (hypertension) History of drug abuse Cellulitis Surgical History History of common bile duct surgery History of hemorrhoidectomy Hx of endoscopy History of colonoscopy History of laparoscopy History of appendectomy Family History Father Diabetes Hypertension Mother Hypertension Social History Housing: Apartment Are you a primary anesthesiologist and critical care to a significant other at home: No Do you presently have visiting nurse or other home services: No Alcohol intake: never Comment: cramping, relieved partially after using bathroom Patient Tobacco Use Status: Former Tobacco user Tobacco use type: Cigarette e-Cigarette/Vaping Use: Never Used Second Hand Smoke Exposure: No Substance Use Type: Opiates service: No Current occupational status: unemployed Current occupational exposures/hazards: No Cognitive needs: No Hearing needs: No Vision needs: No Physical Exam Extrem Other: There is back and lateral hip pain with external rotation. Negative impingement test. Walks with a externally rotated left lower extremity. 5/5 strength left lower extremity. Results Reviewed Results Reviewed: MRI report from an open MRI states no intra-articular pathology appreciable on MRI. AP pelvis from 01/21/2024 are unremarkable for hip pathology. Assessment & Plan Assessment & Plan (1) Pain of left lower extremity: Code(s): M79.605 - Pain in left leg Category: Medical Plan: This is a 54-year-old diabetic male with 2 years of severe left leg pain. There is no objective evidence of hip arthritis and I do not recommend surgery. I do think it is reasonable to rule out spine pathology. I also recommend physical therapy for gait training. (2) Lower extremity neuropathy: Code(s): G57.90 - Unspecified mononeuropathy of unspecified lower limb Category: Medical Plan: Orders: Orders MR lumbar spine wo con Today M79.605 - Pain in left leg PT Evaluation and Treatment Today G57.90 - Unspecified mononeuropathy of unspecified lower limb, M79.605 - Pain in left leg Coding Level of Care Code Est Pt Level 4 (94633) Diagnoses Pain of left lower extremity M79.605 Lower extremity neuropathy G57.90
== END 2024-06-19 13:49 | disposition home or self-care (01) ==
PROVIDERS: PCP Family Medicine; Visit Provider Orthopaedic Surgery
DX: M79.605 Pain in left leg (principal); G57.92 Unspecified mononeuropathy of left lower limb
CPT/HCPCS: 99214

== ENCOUNTER → 2024-06-19 12:47 | Outpatient (BNVA) | payer OTHER, SELFPAY | PROVIDERS: PCP Family Medicine; Visit Provider Orthopaedic Surgery | DX: M25.552 Pain in left hip (principal); M79.605 Pain in left leg; G57.90 Unspecified mononeuropathy of unspecified lower limb | CPT/HCPCS: 99212 ==

== ENCOUNTER → 2024-07-08 11:15 | Outpatient (BNV) | payer OTHER, SELFPAY | PROVIDERS: PCP Family Medicine; Visit Provider Radiology Diagnostic Radiology | DX: M79.605 Pain in left leg (principal) | CPT/HCPCS: 72148 ==

== ENCOUNTER 2024-07-08 11:27 | Outpatient (REF) | payer OTHER, SELFPAY ==
--- NOTE | ~2024-07-08 | MR_ITS ---
EXAMINATION: MR LUMBAR SPINE WITHOUT CONTRAST CLINICAL INFORMATION: Low back pain radiating into left lower extremity. COMPARISON: None available. TECHNIQUE: MRI of the lumbar spine was obtained using routine sequences without contrast. FINDINGS: Last rib-bearing vertebra labeled T12. No bone marrow STIR signal abnormality. Bone marrow inhomogeneity. Multilevel marginal osteophyte formation and disc desiccation. Focal hyperintense T2 signal in the posterior intervertebral disc of L5-S1 and L3-4, likely annular fissure. Grade 1 retrolisthesis, L3-4, L4-5 and L5-S1 on a degenerative basis. Conus medullaris ends at the intervertebral disc L1 to level with normal signal. 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 T12-L1: No compression upon neural elements. No neuroforamina stenosis. Focal, 12 mm hyperintense T2 signal in the posterior right facet joint likely synovial cyst. L1-2: No compression upon neural elements. No disc herniation. L2-3: Broad-based disc bulging. Facet joint and ligamentum flavum hypertrophy. No disc herniation. No compression upon neural elements. L3-4: Broad-based disc bulging. Facet joint and ligamentum flavum hypertrophy. Reduced AP diameter of the thecal sac and bilateral neuroforamina narrowing. L4-5: Broad-based disc bulging. Facet joint and ligamentum flavum hypertrophy. Reduced AP diameter of the thecal sac and bilateral neuroforamina narrowing. L5-S1: Broad-based disc bulging. Facet joint and ligamentum flavum hypertrophy. Bilateral neuroforamina narrowing encroaching the exiting nerve roots. Reduced AP diameter of the thecal sac. No prevertebral compartment hematoma, mass or fluid collection. MR/MR lumbar spine wo con IMPRESSION: Multilevel lumbar spondylosis more conspicuous at L5-S1 encroaching the exiting nerve roots. Electronically signed by: Michael Witt MD 07/08/2024 12:30 PM [facility]
== END 2024-07-08 11:28 | disposition home or self-care (01) ==
LOC: HO.MRI 11:27
PROVIDERS: PCP Family Medicine; Visit Provider Orthopaedic Surgery
DX: M79.605 Pain in left leg (principal)
CPT/HCPCS: 72148

== ENCOUNTER → 2024-07-29 12:01 | Outpatient (BNVA) | payer OTHER, SELFPAY | PROVIDERS: PCP Family Medicine; Visit Provider Family Medicine ==

== ENCOUNTER → 2024-07-29 12:01 | Outpatient (BNVA) | payer OTHER, SELFPAY | PROVIDERS: PCP Family Medicine; Visit Provider Family Medicine ==

== ENCOUNTER 2024-08-11 10:23 | Outpatient (REF) | payer OTHER, SELFPAY ==
--- NOTE | ~2024-08-11 | XR_ITS ---
EXAMINATION: XR CHEST CLINICAL INFORMATION: R05.9 - Cough, unspecified COMPARISON: cxr on 03/31/24 TECHNIQUE: 2 views of the chest were obtained. FINDINGS: The cardiac silhouette is normal. There is mild diffuse bronchial wall thickening. Lingular pneumonia. There are no pleural effusions or pneumothoraces. The bones and soft tissues are unremarkable for the patient's age. XR/XR chest 2V IMPRESSION: Lingular pneumonia. Electronically signed by: Barb Terrell MD 08/11/2024 01:57 PM EST
== END 2024-08-11 10:24 | disposition home or self-care (01) ==
LOC: HO.XRAY 10:23
PROVIDERS: PCP Family Medicine; Visit Provider Hospitalist
DX: R05.9 Cough, unspecified (principal); E11.65 Type 2 diabetes mellitus with hyperglycemia; E78.5 Hyperlipidemia, unspecified; I10 Essential (primary) hypertension; Z79.4 Long term (current) use of insulin; M25.551 Pain in right hip
CPT/HCPCS: 71046; 82947; 99202; 99212

== ENCOUNTER 2024-08-11 10:49 | Outpatient (AMB) | payer OTHER, SELFPAY ==
[2024-08-11 11:42] VITALS: BMI 36.0
--- NOTE | 2024-08-11 11:42 | HO.SPINEOV ---
Vital Signs 08/11/24 11:42 Height 5 ft 7 in Weight 230 lb BMI 36.0 Intake Visit Reasons: lumbar radiculopathy Intake Note: Mr. Zhong is here today c/o low back pain, painful to sit down. Barrel Handler Required: No Allergies milk [MILK] Allergy (Severe, Verified 08/11/24 11:43) enterocolitis wheat [WHEAT] Allergy (Intermediate, Verified 08/11/24 11:43) enterocolitis amoxicillin [From AUGMENTIN] Adverse Reaction (Intermediate, Verified 08/11/24 11:43) N/V clavulanic acid [From AUGMENTIN] Adverse Reaction (Intermediate, Verified 08/11/24 11:43) N/V corn Adverse Reaction (Mild, Verified 08/11/24 11:43) Nausea and Vomiting ibuprofen [From MOTRIN] Adverse Reaction (Mild, Verified 08/11/24 11:43) ULCERS naproxen [NAPROXEN] Adverse Reaction (Mild, Verified 08/11/24 11:43) ULCERS NSAIDS (Non-Steroidal Anti-Inflamma [NSAIDS] Adverse Reaction (Mild, Verified 08/11/24 11:43) ULCERS oats Adverse Reaction (Mild, Verified 08/11/24 11:43) Abdominal Pain Physical Exam Vital Signs: BMI result Body Mass Index 36.0 Assessment & Plan Assessment & Plan (1) Hip pain: Code(s): M25.559 - Pain in unspecified hip Category: Medical Plan Dear Miguel, Thank you for referring Mr Zhong to our office today. 54-year-old male presents to the office today for evaluation of left hip pain. He tells me that it started in 2021 when he woke from a procedure here at [facility] and was told that he fell off the operating table or somehow fell during the procedure. At that time he felt acute left hip pain which he describes as being in his left buttock, his left anterior groin and slightly into his anterior thigh. He had workups including an MRI done 2022 which did not show any evidence of acute problems in his left hip. Apparently he has undergone some injections in different modalities of treatment and medication trials without much relief. His workup of his hip MRI was negative so, he underwent a lumbar MRI with some degenerative disc disease and was sent to see us. He does not have any pain that is shooting down the leg into the calf or the foot. He does not report any tingling or numbness. There is a sense of weakness of the left leg and that it has so much pain when he is trying to move it that it feels like it is going to give out. The pain is improved with standing and aggravated with walking or sitting. PMH: He has a host of medical problems including diabetes, osteoarthritis of the left hip, hypertension, chest pain, dyslipidemia, neuropathy, de Quervain tenosynovitis, Donis, chronic constipation, pancreatic duct stent, Achilles tendinosis, right foot infection, acute kidney injury, complex regional pain syndrome, chronic kidney disease, hepatitis-C, GERD, asthma, anemia, arthritis history of drug abuse Social hx: Remote history of drug abuse, Medications: Please see the [employer] list Allergies: Please see the Med[employer] list Physical exam: Patient is uncomfortable today, getting on the exam table, a lot of difficulty lying flat but it very comfortable standing up straight. He walks with a cane with a slightly antalgic gait. Any attempts to manipulate his left leg gave him tremendous amount of pain in his hip. Specifically internal and external rotation. I do not detect any focal neurological deficits however it was difficult to test him because of the amount of pain he was in. Reflexes absent at the patella and the Achilles. Imaging review: There is a lumbar MRI done at [place] showing [id number] degenerative disc disease with no significant central canal stenosis or foraminal stenosis Impression: 54-year-old male who fell off the operating table or somehow was injured during a procedure a few years ago who has had persistent left hip pain since that time. On my exam he has a lot of pain with internal and external rotation or manipulation of his leg. His lumbar MRI shows some [id number] degeneration but no obvious nerve compression disc herniation etc.. I do not think this is coming from his lumbar spine. The patient was asking about a possible 2nd opinion on his hip, and I told him that would be up to him to pursue that. I told him I could order him a new hip x-ray as his last hip imaging was done in 2022, but if he wanted to find a referral to a new orthopedic surgeon, he would have to seek that out himself. Thank you for allowing us to care for your patient. The total time spent with this visit with this patient was 40 minutes reviewing history, physical exam, lumbar imaging review, and implementation of treatment plan or further diagnostic testing Solitario Becerra MD,PhD [facility] Orders: Orders XR hip LT min 2V Today M25.559 - Pain in unspecified hip Coding Level of Care Code New Pt Level 4 (75322) Diagnoses Hip pain M25.559
== END 2024-08-11 12:30 | disposition home or self-care (01) ==
PROVIDERS: PCP Family Medicine; Referring Provider Orthopaedic Surgery; Visit Provider Physician Assistant
DX: M25.559 Pain in unspecified hip (principal)
CPT/HCPCS: 99204

== ENCOUNTER 2024-08-11 13:09 | Outpatient (AMB) | payer OTHER, SELFPAY ==
--- NOTE | 2024-08-11 13:12 | A.OFFVIS_ITS ---
Vital Signs 08/11/24 13:18 Height 5 ft 7 in Weight 233 lb 11.04 oz BMI 36.6 BP 152/90 H Blood Pressure Location Rt brachial Position Sitting Pulse 116 H Pulse Source Pulse Oximeter Intake Visit Reasons: T2DM/LVM Intake Note: Patient presents today for a follow-up on Type 2 Diabetes Mellitus: Last Diabetic eye exam was on: DUE Last Podiatry exam was on: 06/2024 Most recent HbA1c: 7.8%, 06/06/2024 Random Glucose- 240 mg/dL, Today Accompanied by: Self / Same As Patient Allergies milk [MILK] Allergy (Severe, Verified 08/11/24 13:14) enterocolitis wheat [WHEAT] Allergy (Intermediate, Verified 08/11/24 13:14) enterocolitis amoxicillin [From AUGMENTIN] Adverse Reaction (Intermediate, Verified 08/11/24 13:14) N/V clavulanic acid [From AUGMENTIN] Adverse Reaction (Intermediate, Verified 08/11/24 13:14) N/V corn Adverse Reaction (Mild, Verified 08/11/24 13:14) Nausea and Vomiting ibuprofen [From MOTRIN] Adverse Reaction (Mild, Verified 08/11/24 13:14) ULCERS naproxen [NAPROXEN] Adverse Reaction (Mild, Verified 08/11/24 13:14) ULCERS NSAIDS (Non-Steroidal Anti-Inflamma [NSAIDS] Adverse Reaction (Mild, Verified 08/11/24 13:14) ULCERS oats Adverse Reaction (Mild, Verified 08/11/24 13:14) Abdominal Pain Medication List - Last Reconciled 08/11/24 by Suzie Motta PA-C albuterol sulfate 2.5 mg (3 mL) inhalation Q6H PRN 30 days albuterol sulfate 90 mcg/actuation 2 puffs inhalation Q6H PRN 30 days atorvastatin 20 mg PO BEDTIME blood pressure monitor Automatic, Digital. Dx: I10. Daily As directed, 999 days/lifetime blood sugar diagnostic (FreeStyle Lite Strips) As directed, to test blood sugar 4 times a day blood-glucose meter (FreeStyle Lite Meter kit) DX: E11.9, test blood sugar 2 times a day, duration 999 days blood-glucose meter,continuous (FreeStyle James 3 [place]) As directed blood-glucose sensor (FreeStyle James 3 Sensor device) Apply every 14 days As directed cane Daily As directed. 999 days crutches (pair of crutches) As directed crutches (pair of crutches) As directed Dupixent Pen (dupilumab) 300 mg (2 mL) subcut Q2W NS glucose (Dex4 Glucose) 16 grams (4 x 4 gram) PO Q15M PRN Grab bar As directed, 999 days hydrochlorothiazide 12.5 mg PO QAM 30 days hydrocodone-acetaminophen 5-325 mg 1 tab PO BID PRN 7 days ipratropium-albuterol 0.5 mg-3 mg(2.5 mg base)/3 mL 3 mL inhalation Q6H PRN lancets (FreeStyle Lancets) As directed lancets (FreeStyle Lancets) As directed bs checks 2-3 times per day Lantus Solostar U-100 Insulin (insulin glargine) 25 units (0.25 mL) subcut QPM NS magnesium hydroxide (Milk of Magnesia) 20 mL PO DAILY magnesium oxide 500 mg PO BID methadone 40 mg PO DAILY miscellaneous medical supply Hand-held?shower?head,?As directed, 999 days miscellaneous medical supply 2 med planners; 1 urinal; 1 bed red; 1 commode; 2 grab bars for bed miscellaneous medical supply quad cane small base miscellaneous medical supply Toilet?see?raised,?As directed, 999 days montelukast 10 mg PO BEDTIME mupirocin 2% 1 appl topical BID 7 days nebulizers As directed Novolog FlexPen U-100 Insulin (insulin aspart U-100) Inject 30 units before breakfast, 20 units before lunch and 20 units before dinner subcutaneously 3 times a day; NS omeprazole 20 mg PO DAILY ondansetron 4 mg PO Q8H PRN 30 days peg-electrolyte soln 420 gram 240 mL PO Q10M pen needle, diabetic (BD Lynda 2nd Gen Pen Needle) DIRECTED INJECTS 4 X/DAY pentoxifylline ER 400 mg PO TID polyethylene glycol 3350 (Miralax) 17 grams PO DAILY PRN prucalopride (Motegrity) 1 mg PO DAILY semaglutide (Ozempic) 0.25 mg (0.368 mL) subcut QWEEK Shower Chair As directed sodium chloride 0.65% (Saline Nasal) 2 sprays intranasal Q2H PRN sodium phosphates 19-7 gram/118 mL (Fleet Enema) 118 mL FL BEDTIME PRN sodium,potassium,mag sulfates 17.5-3.13-1.6 gram (Suprep Bowel Prep Kit) take as instructed HPI HPI T2DM/LVM: Details: Patient is a 54-year-old male with a significant past medical history of hypertension, type 2 diabetes, ED, dyslipidemia, CKD, chronic pain syndrome, hep C, COPD, methadone use presenting today for a diabetic follow-up. Endo: His last A1c was 7.5%. He is on Lantus 25 units at night, NovoLog t.i.d. 20-30 units, ozempic 0.5 mg weekly. -he states that the higher dosage of the ozempic is making him nauseous but did not with the dose of 0.25 and wants to go back to that. -He has tried metformin but did not tolerate. He has tried trulicity but did not tolerate due to vomiting. thong and he states it was effective but was getting abdominal pain and nausea with it. His cgm from today shows usage 93 %, avg blood sugar is 208, 8.3%. He is very high 21 %, 45 % high, 34 % in target, 0% low. He states he has not had any low blood sugars -Last eye exam: end of Sep 2023- states that there were some findings (does not recall name of eye issues) and is seeing retina specialist -Last foot exam: sees Dr. Eastman. CV: blood pressure in the office is 152/90. He is taking the lisinopril 30 mg and hydrochlorothiazide 12.5 mg. [facility] Medical History Dyslipidemia Uncontrolled type 2 diabetes mellitus with hyperglycemia, with long-term current use of insulin Chronic allergic rhinitis Diabetes Complex regional pain syndrome I Deficient knowledge of leg surgery home care Sinusitis Pre-op evaluation Methadone use GERD (gastroesophageal reflux disease) History of kidney stones Internal and external bleeding hemorrhoids Severe persistent asthma Sciatica Arthritis Anemia Hiatal hernia Dysphagia Hepatitis C COPD (chronic obstructive pulmonary disease) HTN (hypertension) History of drug abuse Cellulitis Surgical History History of common bile duct surgery History of hemorrhoidectomy Hx of endoscopy History of colonoscopy History of laparoscopy History of appendectomy Family History Father Diabetes Hypertension Mother Hypertension Social History Housing: Apartment Are you a primary day care teacher to a significant other at home: No Do you presently have visiting nurse or other home services: No Alcohol intake: never Comment: cramping, relieved partially after using bathroom Patient Tobacco Use Status: Former Tobacco user Tobacco use type: Cigarette e-Cigarette/Vaping Use: Never Used Second Hand Smoke Exposure: No Substance Use Type: Opiates service: No Current occupational status: unemployed Current occupational exposures/hazards: No Cognitive needs: No Hearing needs: No Vision needs: No Physical Exam Vital Signs: Last Vital Signs Pulse 116 H 08/11/24 13:18 BP 152/90 H 08/11/24 13:18 BMI result Body Mass Index 36.6 Const Orientation/consciousness: patient oriented x3 Neck Neck: Yes no lymphadenopathy Thyroid: Thyroid normal Carotids: no bruits Resp Auscultation: clear to auscultation bilaterally Cardio Rate: regular rate Rhythm: regular rhythm Heart sounds: S1 normal heart sound present and S2 normal heart sound present Neuro General: patient oriented x3, gait normal and no focal motor deficits Results Reviewed Results Reviewed: Laboratory Tests 02/25/24 02/25/24 04/01/24 09:07 09:12 15:51 Creatinine 1.08 Estimated GFR > 60 Hgb A1c (Clinic) Hemoglobin A1c % 6.8 H Triglycerides 258 H Cholesterol 178 LDL Cholesterol, Calc 92 HDL Cholesterol 35 L Urine Creatinine 154.91 Urine Microalbumin 30.0 Microalb/Creat Ratio 19.3 06/06/24 15:18 Creatinine Estimated GFR Hgb A1c (Clinic) 7.8 H Hemoglobin A1c % Triglycerides Cholesterol LDL Cholesterol, Calc HDL Cholesterol Urine Creatinine Urine Microalbumin Microalb/Creat Ratio Assessment & Plan Assessment & Plan (1) Uncontrolled type 2 diabetes mellitus with hyperglycemia, with long-term current use of insulin: Code(s): E11.65 - Type 2 diabetes mellitus with hyperglycemia; 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 Reviewed rule of 15s labs ordered prior to appointment f/u 3 months (2) HLD (hyperlipidemia): Code(s): E78.5 - Hyperlipidemia, unspecified Category: Medical Plan: reports compliance with atorvastatin 20 mg nightly will recheck lipids prior to next appointment (3) HTN (hypertension): Code(s): I10 - Essential (primary) hypertension Category: Medical Qualifiers: Hypertension type: primary hypertension Qualified Code(s): I10 - Essential (primary) hypertension Plan: elevated today (and the last few times) increase lisinopril to 40 mg. continue hctz 12.5 mg. Medications: New semaglutide (Ozempic) 0.25 mg (0.368 mL) subcut QWEEK 3 mL 5RF glipizide ER 5 mg PO DAILY 90 tabs 2RF lisinopril 40 mg PO DAILY 90 tabs 3RF Changed From Lantus Solostar U-100 Insulin (insulin glargine) 25 units (0.25 mL) subcut QPM 15 mL 4RF NS To Lantus Solostar U-100 Insulin (insulin glargine) 30 units (0.3 mL) subcut QPM 15 mL 4RF NS Refilled glucose (Dex4 Glucose) until symptoms of low blood sugar are controlled 16 grams (4 x 4 gram) PO Q15M PRN 90 tabs 0RF hypoglycemia Coding Level of Care Code Est Pt Level 4 (95223) Complex EM visit Add On G2211 Diagnoses Uncontrolled type 2 diabetes mellitus with hyperglycemia, with long-term current use of insulin E11.65; Z79.4 HLD (hyperlipidemia) E78.5 Primary hypertension I10 Hypertension type: primary hypertension
[2024-08-11 13:18] VITALS: BP 152/90; PULSE 116; BMI 36.6
[2024-08-11 13:28] LABS: Glucose, Whole Blood 240 mg/dL (60-115)
== END 2024-08-11 13:42 | disposition home or self-care (01) ==
PROVIDERS: PCP Family Medicine; Visit Provider Physician Assistant
DX: E11.65 Type 2 diabetes mellitus with hyperglycemia (principal); Z79.4 Long term (current) use of insulin; E78.5 Hyperlipidemia, unspecified; I10 Essential (primary) hypertension

== ENCOUNTER 2024-08-13 10:23 | Outpatient (REF) | payer OTHER, SELFPAY | END 2024-08-13 10:24 | disposition home or self-care (01) | LOC: HO.XRAY 10:23 | PROVIDERS: PCP Family Medicine; Visit Provider Physician Assistant | DX: M25.552 Pain in left hip (principal) | CPT/HCPCS: 73502 ==

== ENCOUNTER 2024-08-19 15:06 | Outpatient (REF) | payer OTHER, SELFPAY ==
--- NOTE | ~2024-08-19 | XR_ITS ---
EXAMINATION: XR CHEST CLINICAL INFORMATION: J18.9 - Pneumonia, unspecified organism COMPARISON: X-ray 08/11/2024 TECHNIQUE: 2 views of the chest were obtained. FINDINGS: Cardiac and mediastinal silhouette is within normal limits. Redemonstrated diffuse bronchial wall thickening. Confluent opacification in the lingula, suggesting pneumonia, similar to previous. No pleural effusion, pulmonary edema. No pneumothorax is seen. No acute osseous abnormality. XR/XR chest 2V IMPRESSION: Lingular confluent opacification/pneumonia appearing similar as compared to previous. Recommendation is for a follow-up chest series to be obtained following treatment and/or resolution of symptoms to assure resolution of this appearance. Electronically signed by: Tom Castillo MD 08/19/2024 05:01 PM [facility]
== END 2024-08-19 15:07 | disposition home or self-care (01) ==
LOC: HO.XRAY 15:06
PROVIDERS: PCP Family Medicine; Visit Provider Hospitalist
DX: J18.9 Pneumonia, unspecified organism (principal)
CPT/HCPCS: 71046

== ENCOUNTER 2024-08-20 12:09 | Outpatient (AMB) | payer OTHER, SELFPAY ==
--- NOTE | 2024-08-20 12:17 | MHC.OFFVIS ---
Vital Signs 08/20/24 12:20 Weight 234 lb 12.677 oz BP 178/102 H Blood Pressure Location Lt brachial Position Sitting Pulse 122 H Pulse Source Pulse Oximeter Pulse Oximetry (%) 96 Oxygen Delivery Method Room Air Intake Visit Reasons: Asthma Allergies milk [MILK] Allergy (Severe, Verified 08/20/24 12:27) enterocolitis wheat [WHEAT] Allergy (Intermediate, Verified 08/20/24 12:27) enterocolitis amoxicillin [From AUGMENTIN] Adverse Reaction (Intermediate, Verified 08/20/24 12:27) N/V clavulanic acid [From AUGMENTIN] Adverse Reaction (Intermediate, Verified 08/20/24 12:27) N/V corn Adverse Reaction (Mild, Verified 08/20/24 12:27) Nausea and Vomiting ibuprofen [From MOTRIN] Adverse Reaction (Mild, Verified 08/20/24 12:27) ULCERS naproxen [NAPROXEN] Adverse Reaction (Mild, Verified 08/20/24 12:27) ULCERS NSAIDS (Non-Steroidal Anti-Inflamma [NSAIDS] Adverse Reaction (Mild, Verified 08/20/24 12:27) ULCERS oats Adverse Reaction (Mild, Verified 08/20/24 12:27) Abdominal Pain Medication List - Last Reconciled 08/20/24 by Anna Wiley LPN albuterol sulfate 2.5 mg (3 mL) inhalation Q6H PRN 30 days albuterol sulfate 90 mcg/actuation 2 puffs inhalation Q6H PRN 30 days atorvastatin 20 mg PO BEDTIME blood pressure monitor Automatic, Digital. Dx: I10. Daily As directed, 999 days/lifetime blood sugar diagnostic (FreeStyle Lite Strips) As directed, to test blood sugar 4 times a day blood-glucose meter (FreeStyle Lite Meter kit) DX: E11.9, test blood sugar 2 times a day, duration 999 days blood-glucose meter,continuous (FreeStyle James 3 [place]) As directed blood-glucose sensor (FreeStyle James 3 Sensor device) Apply every 14 days As directed cane Daily As directed. 999 days cefpodoxime 200 mg PO BID codeine-guaifenesin 10-100 mg/5 mL 10 mL PO Q6H PRN 10 days crutches (pair of crutches) As directed crutches (pair of crutches) As directed Dupixent Pen (dupilumab) 300 mg (2 mL) subcut Q2W NS glipizide ER 5 mg PO DAILY glucose (Dex4 Glucose) 16 grams (4 x 4 gram) PO Q15M PRN Grab bar As directed, 999 days hydrochlorothiazide 12.5 mg PO QAM 30 days hydrocodone-acetaminophen 5-325 mg 1 tab PO BID PRN 7 days ipratropium-albuterol 0.5 mg-3 mg(2.5 mg base)/3 mL 3 mL inhalation Q6H PRN lancets (FreeStyle Lancets) As directed lancets (FreeStyle Lancets) As directed bs checks 2-3 times per day Lantus Solostar U-100 Insulin (insulin glargine) 30 units (0.3 mL) subcut QPM NS lisinopril 40 mg PO DAILY magnesium hydroxide (Milk of Magnesia) 20 mL PO DAILY magnesium oxide 500 mg PO BID methadone 40 mg PO DAILY miscellaneous medical supply Hand-held?shower?head,?As directed, 999 days miscellaneous medical supply 2 med planners; 1 urinal; 1 bed red; 1 commode; 2 grab bars for bed miscellaneous medical supply quad cane small base miscellaneous medical supply Toilet?see?raised,?As directed, 999 days montelukast 10 mg PO BEDTIME mupirocin 2% 1 appl topical BID 7 days nebulizers As directed Novolog FlexPen U-100 Insulin (insulin aspart U-100) Inject 30 units before breakfast, 20 units before lunch and 20 units before dinner subcutaneously 3 times a day; NS omeprazole 20 mg PO DAILY ondansetron 4 mg PO Q8H PRN 30 days peg-electrolyte soln 420 gram 240 mL PO Q10M pen needle, diabetic (BD Lynda 2nd Gen Pen Needle) DIRECTED INJECTS 4 X/DAY pentoxifylline ER 400 mg PO TID polyethylene glycol 3350 (Miralax) 17 grams PO DAILY PRN prucalopride (Motegrity) 1 mg PO DAILY semaglutide (Ozempic) 0.25 mg (0.368 mL) subcut QWEEK Shower Chair As directed sodium chloride 0.65% (Saline Nasal) 2 sprays intranasal Q2H PRN sodium phosphates 19-7 gram/118 mL (Fleet Enema) 118 mL NV BEDTIME PRN sodium,potassium,mag sulfates 17.5-3.13-1.6 gram (Suprep Bowel Prep Kit) take as instructed HPI Comments Details: The patient is a 54-year-old gentleman with severe persistent asthma. He he has had previous intubations in the past for status asthmaticus. More recently he has had multiple bouts of prednisone tapers for his significant persistent symptoms. The patient has been using his current respiratory medications with very good adherence. However, still requiring short-acting beta agonists several times a day. He also uses nebulizer. At this point the patient is failing outpatient therapy with uncontrolled asthma. Has significant wheezing on examination. Also has significant allergies. A previous blood work is IgE levels had been noted to be elevated and also had some degree of eosinophilia. More recently he was evaluated by Allergy. He will be following up with them soon. Therefore, we will continue awaiting their recommendations. He also had pulmonary function studies demonstrating severe obstruction consistent with severe uncontrolled asthma. We did evaluate his blood work demonstrating the elevations in his eosinophils. The patient also has elevations in his eosinophils. Based on these findings and is positive allergy testing the patient is a great candidate for biologic therapy with Dupixent. 11/04/2020 the patient is here for a preoperative evaluation. Overall the patient has been doing very good from a respiratory status. He has been off all prednisone. Patient is continue with Dupixent every 2 weeks. He is continue with respiratory therapy as prescribed with good adherence. He has not required his nebulized therapy. He has been having issues with his hemorrhoids and will undergo surgery tomorrow. However due to his respiratory condition a preop was requested. The patient has been feeling well. He does have some cough but is nonproductive intubated in nature. He has been able to walk and go up a lot of stairs without any difficulty. In the office he did to spirometry with an FEV1 to FVC of 61% and FEV1 of 56% predicted. This is consistent with moderate COPD. Overall lot better for him. At this point the patient is medically optimized from a respiratory status. In regards to a surgical standpoint due to his respiratory issues he would benefit from avoiding general anesthesia to minimize bronchospasms and difficulty with per status if possible. Either LMA or spinal would be appropriate. However, if the alternatives are not available I do believe that based on his current respiratory status and is optimize state the patient is able to tolerate general anesthesia. Due to his moderate obstruction the patient does have increased perioperative pulmonary complications which include, atelectasis, hypoxia prolonged mechanical ventilation and also pneumonia. Again, patient is medically optimized and may able to pursue with surgery and anesthesia. 10/05/2023 the patient has a pulmonary visit today. Overall he is doing better from a respiratory status. He continues to Dupixent every 2 weeks with very good response. He does continue to use his maintenance therapy which includes Singulair and Combivent. The patient has not required any prednisone. He does have some dyspnea on exertion mild in severity. Also has an intermittent cough. That typically is nonproductive in nature. Otherwise he is without any other respiratory complaints. 05/15/2024 the patient is here for a pulmonary follow-up visit. He is having hard time sinusitis. Was evaluated several weeks ago because the sinusitis and is still not better. He has a hard time breathing through his nose. He has noticed some increased bloody drainage primarily from the right nares. He is getting some irritation and headaches. Sinus pressure is uncomfortable moderate severity. He is concerned that the symptoms are going to continue dripping down affecting his asthma. The patient will go ahead and get x-rays at this time for his sinuses. He already has some wheezing on examination. Therefore will go ahead and start him on some prednisone and will start him on Afrin for 5 days. The patient does have a blood pressure therefore the he can not use Sudafed. Will put him on Levaquin. If the patient is doing better he will call. At that point will go ahead and refer him to ENT and also request a CT scan of the sinuses. He will continue with Dupixent injection at this time. He will continue with his respiratory therapy as prescribed. The patient follow-up in 3-4 weeks. 08/20/2024 the patient is here for a pulmonary follow-up visit. He is very aggravated today as he has had a bad interaction with another individual and caused him to have significant stress and anger. Therefore when he came in his blood pressure is significantly elevated. I did check her myself in the left arm his blood pressure was 210 over 110 and his right arm 195/110. We did recommend patient go to the ER because this could be potentially life-threatening can end up with a heart attack or stroke but he is reluctant that he does not want to go anywhere that he wants to be by himself. He understands the severity of not getting this blood pressure taking care of and the concerns and potential outcomes from having this elevated blood pressure for too long. In the meantime his x-ray was also done of the chest. He still has some slight opacity to the left lower lung where he was treated for pneumonia. He has another day of antibiotics. I will give another course but also will request a CT scan this point because the CT scan will be able to address better those changes that we see on the x-ray specially since they are persistent have not improved since his previous x-ray. He will continue with current respiratory therapy will follow-up in 23 months. Feels any issues prior to that he will call for an earlier assessment. [facility] Medical History (Updated 08/20/24 @ 22:46 by Shadi Dover MD) Abnormal chest x-ray Dyslipidemia Uncontrolled type 2 diabetes mellitus with hyperglycemia, with long-term current use of insulin Chronic allergic rhinitis Diabetes Complex regional pain syndrome I Deficient knowledge of leg surgery home care Sinusitis Pre-op evaluation Methadone use GERD (gastroesophageal reflux disease) History of kidney stones Internal and external bleeding hemorrhoids Severe persistent asthma Sciatica Arthritis Anemia Hiatal hernia Dysphagia Hepatitis C COPD (chronic obstructive pulmonary disease) HTN (hypertension) History of drug abuse Cellulitis Surgical History History of common bile duct surgery History of hemorrhoidectomy Hx of endoscopy History of colonoscopy History of laparoscopy History of appendectomy Family History Father Diabetes Hypertension Mother Hypertension Social History Housing: Apartment Are you a primary child care education coordinator to a significant other at home: No Do you presently have visiting nurse or other home services: No Alcohol intake: never Comment: cramping, relieved partially after using bathroom Patient Tobacco Use Status: Former Tobacco user Tobacco use type: Cigarette e-Cigarette/Vaping Use: Never Used Second Hand Smoke Exposure: No Substance Use Type: Opiates service: No Current occupational status: unemployed Current occupational exposures/hazards: No Cognitive needs: No Hearing needs: No Vision needs: No Review of Systems Const Denies chills, Denies fever(s) and Denies headache(s) ENT Denies headache(s), Reports epistaxis, Reports nasal congestion, Reports nasal discharge, Reports nasal obstruction, Reports post nasal drip, Reports sinus pain and Reports sinus pressure Card Denies chest pain Resp Denies change in phlegm color, Reports cough and Reports wheezing GI Denies change in bowel habits and Reports constipation Denies hematuria and Denies difficulty urinating Musc Reports abnormal gait, Denies back pain, Reports arthralgias, Reports joint swelling and Reports limited range of motion Neuro Reports abnormal gait, Denies headache(s), Denies focal weakness and Denies convulsions Psych Denies depression, Reports irritability (upset) and Denies mood swings Irving/Lymph Denies lymphadenopathy Aller/Immun Reports wheezing Physical Exam Vital Signs: Last Vital Signs Pulse 122 H 08/20/24 12:20 BP 178/102 H 08/20/24 12:20 Pulse Ox 96 08/20/24 12:20 Oxygen Delivery Method Room Air 08/20/24 12:20 Const General: alert HEENT Head: Yes other (has a mask) Neck Neck: Yes normal visual inspection, Yes full ROM and Yes no lymphadenopathy Chest Chest palpation & inspection: normal inspection of the chest Resp Effort & Inspection: normal respiratory effort Auscultation: diminished lung sounds Cardio Rate: tachycardic Rhythm: regular rhythm Heart sounds: S1 normal heart sound present and S2 normal heart sound present GI Palpation (GI): Soft to palpation and nontender Auscultation: normal bowel sounds Assessment & Plan Assessment & Plan (1) Hypertensive urgency: Code(s): I16.0 - Hypertensive urgency Category: Medical (2) Abnormal chest x-ray: Code(s): R93.89 - Abnormal findings on diagnostic imaging of other specified body structures Category: Medical (3) Asthma: Code(s): J45.909 - Unspecified asthma, uncomplicated Category: Medical Qualifiers: Asthma severity: severe Asthma persistence: persistent Asthma complication type: uncomplicated Qualified Code(s): J45.50 - Severe persistent asthma, uncomplicated (4) GERD (gastroesophageal reflux disease): Code(s): K21.9 - Gastro-esophageal reflux disease without esophagitis Category: Medical Qualifiers: Esophagitis presence: without esophagitis Qualified Code(s): K21.9 - Gastro-esophageal reflux disease without esophagitis (5) Chronic allergic rhinitis: Code(s): J30.9 - Allergic rhinitis, unspecified Category: Medical Plan Needs to go to the ED to address the hypertensive urgency. But pt refuses. CT chest to address persistent changes on CXR with cncerns for pneumoia doxycycline x 10 days continue Dupixent 300mg [id number] Continue allergy therapy: singulair and zyrtec continue Duonebs as needed continue Advair HFA 230/21 2 puff BID reflux diet allergy therapy f/U 2-3 months Orders: Orders CT chest wo IV con Today R07.9 - Chest pain, unspecified, R93.89 - Abnormal findings on diagnostic imaging of other specified body structures Medications: New doxycycline hyclate 100 mg PO BID 10 days 20 caps 0RF Coding Level of Care Code Est Pt Level 4 (76762) Complex EM visit Add On G2211 Diagnoses Hypertensive urgency I16.0 Abnormal chest x-ray R93.89 Severe persistent asthma without complication J45.50 Asthma severity: severe Asthma persistence: persistent Asthma complication type: uncomplicated Gastroesophageal reflux disease without esophagitis K21.9 Esophagitis presence: without esophagitis Chronic allergic rhinitis J30.9 Time Spent (min) 20
[2024-08-20 12:20] VITALS: BP 178/102; PULSE 122; O2SAT 96
== END 2024-08-20 12:55 | disposition home or self-care (01) ==
PROVIDERS: PCP Family Medicine; Visit Provider Hospitalist
DX: I16.0 Hypertensive urgency (principal); R93.89 Abnormal findings on diagnostic imaging of other specified body structures; J45.50 Severe persistent asthma, uncomplicated; K21.9 Gastro-esophageal reflux disease without esophagitis; J30.9 Allergic rhinitis, unspecified
CPT/HCPCS: 99214; G2211

== ENCOUNTER → 2024-08-20 12:09 | Outpatient (BNVA) | payer OTHER, SELFPAY | PROVIDERS: PCP Family Medicine; Visit Provider Hospitalist | DX: J45.50 Severe persistent asthma, uncomplicated (principal); J30.9 Allergic rhinitis, unspecified; R93.89 Abnormal findings on diagnostic imaging of other specified body structures; I16.0 Hypertensive urgency; K21.9 Gastro-esophageal reflux disease without esophagitis | CPT/HCPCS: 99212 ==

== ENCOUNTER → 2024-08-21 10:26 | Outpatient (AMB) | payer OTHER, SELFPAY ==
--- NOTE | 2024-08-21 10:23 | MHC.PC.OV ---
Intake Visit Reasons: go over imaging results Intake Note: mri and chest x-ray Allergies milk [MILK] Allergy (Severe, Verified 08/21/24 10:24) enterocolitis wheat [WHEAT] Allergy (Intermediate, Verified 08/21/24 10:24) enterocolitis amoxicillin [From AUGMENTIN] Adverse Reaction (Intermediate, Verified 08/21/24 10:24) N/V clavulanic acid [From AUGMENTIN] Adverse Reaction (Intermediate, Verified 08/21/24 10:24) N/V corn Adverse Reaction (Mild, Verified 08/21/24 10:24) Nausea and Vomiting ibuprofen [From MOTRIN] Adverse Reaction (Mild, Verified 08/21/24 10:24) ULCERS naproxen [NAPROXEN] Adverse Reaction (Mild, Verified 08/21/24 10:24) ULCERS NSAIDS (Non-Steroidal Anti-Inflamma [NSAIDS] Adverse Reaction (Mild, Verified 08/21/24 10:24) ULCERS oats Adverse Reaction (Mild, Verified 08/21/24 10:24) Abdominal Pain Tobacco use date assessed: 12/13/23 Dental Screening Dental Screen Date: 09/21/23 HPI go over imaging results HPI Details 54 y/o male presents to f/u chest x-ray, chronic conditions. Chest x-ray shows lingular confluent opacification/pneumonia appearing similar as compared to previous. Hip x-ray has not been read yet. Reports ongoing hip/back pain and has only been using tylenol for the pain. HPI Comments History of Present Illness Details Documentation assistance for Good Harper MD, was provided by Sharif Jacques,? Supervisor [employer] on 08/21/2024 at 2:57 PM EST. I, Dr. Harper, have read, observed, and verified documentation. [facility] Medical History (Updated 08/20/24 @ 22:46 by Shadi Dover MD) Abnormal chest x-ray Dyslipidemia Uncontrolled type 2 diabetes mellitus with hyperglycemia, with long-term current use of insulin Chronic allergic rhinitis Diabetes Complex regional pain syndrome I Deficient knowledge of leg surgery home care Sinusitis Pre-op evaluation Methadone use GERD (gastroesophageal reflux disease) History of kidney stones Internal and external bleeding hemorrhoids Severe persistent asthma Sciatica Arthritis Anemia Hiatal hernia Dysphagia Hepatitis C COPD (chronic obstructive pulmonary disease) HTN (hypertension) History of drug abuse Cellulitis Surgical History History of common bile duct surgery History of hemorrhoidectomy Hx of endoscopy History of colonoscopy History of laparoscopy History of appendectomy Family History Father Diabetes Hypertension Mother Hypertension Social History Housing: Apartment Are you a primary career information specialist to a significant other at home: No Do you presently have visiting nurse or other home services: No Alcohol intake: never Comment: cramping, relieved partially after using bathroom Patient Tobacco Use Status: Former Tobacco user Tobacco use type: Cigarette e-Cigarette/Vaping Use: Never Used Second Hand Smoke Exposure: No Substance Use Type: Opiates service: No Current occupational status: unemployed Current occupational exposures/hazards: No Cognitive needs: No Hearing needs: No Vision needs: No Questionnaire Thrive Questionnaire Date Thrive assessed: 11/17/22 CORNELIUS-7 AMB Questionnaire CORNELIUS-7 Date CORNELIUS - 7 assessed: 11/17/22 Source: Developed by Drs. Sigifredo Matson, Sangeeta Sandy, Ty Davis and colleagues, with an educational frida from [employer]. Physical exam (Primary Care) Tobacco/Smoking Status: Tobacco use Status Tobacco use date assessed 12/13/23 08/21/24 10:23 Patient Tobacco Use Status Former Tobacco user 08/21/24 10:23 Tobacco use type Cigarette 08/21/24 10:23 e-Cigarette/Vaping Use Never Used 08/21/24 10:23 Thrive Assessment: Date of Thrive Assessment Date Thrive assessed 11/17/22 08/21/24 10:23 Telehealth Telehealth Telehealth Platform: Telephone Location of provider rendering services: practice address Location of patient: address on file Patient Identification confirmed using: Name, : Yes Telehealth method: voice only Patient verbally consented to treatment: Yes Patient verbally consented to billing insurance company: Yes Patient informed of any privacy concerns related to visit: Yes Minutes spent on Phone/Video with Pt.: 15 Coding Level of Care Code Tele Est Pt Level 2 (62843) Diagnoses Pneumonia J18.9 Osteoarthritis of left hip M16.12 Lumbar back pain with radiculopathy affecting left lower extremity M54.16 Primary hypertension I10 Hypertension type: primary hypertension Assessment & Plan Assessment & Plan (1) Pneumonia: Code(s): J18.9 - Pneumonia, unspecified organism Category: Medical Plan: His?insurance professional?is?following ?is?changing?antibiotic?to?doxycycline Patient?says?he?has?picked?this?up?today.??Encouraged?him?to?start?medication?and?continue?as?prescribed (2) Osteoarthritis of left hip: Code(s): M16.12 - Unilateral primary osteoarthritis, left hip Category: Medical Plan: Low?back?and?left?hip?pain MRI?shows?spondylosis?and?some?disc?bulging?with?encroachment?of?the?thecal?sac?at?L5-S1 Patient?has?not?had?an?x-ray?of?the?hip?joint?in?quite?some?time?and?this?was?ordered?but?has?not?been?read?yet. Still?has?ongoing?hip?pain.??He?did?not?tolerate?NSAIDs. He?can?use?acetaminophen We?have?using?a?small?amount?of?hydrocodone-acetaminophen?for?more?severe?pain.??He?can?continue?this - I?will?send?script He?would?also?use?ice?and?heat?and?I?will?send?a?topical We?can?follow-up?the?hip?x-ray?when?available (3) Lumbar back pain with radiculopathy affecting left lower extremity: Code(s): M54.16 - Radiculopathy, lumbar region Category: Medical Plan: As?above (4) HTN (hypertension): Code(s): I10 - Essential (primary) hypertension Category: Medical Qualifiers: Hypertension type: primary hypertension Qualified Code(s): I10 - Essential (primary) hypertension Plan: Very?high?blood?pressures?other?office?visits?recently. Patient?is?taking?losartan?and?hydrochlorothiazide. Increase?hydration?and?take?hydrochlorothiazide?twice?a?day?and?continue?losartan Will?get?him?an?appointment?for?next?week. Go?to?ED?if?worsens or?any?new,?concerning?symptoms.??This?was?discussed?earlier?today?via?MA, as?well Medications: New diclofenac sodium 1% (Arthritis Pain (diclofenac)) apply to single knee, ankle, foot; for foot includes sole/toes/top of foot 4 grams topical BID 30 days 200 grams 2RF Changed From hydrocodone-acetaminophen 5-325 mg MassPat Verified. Partial Fill upon patient request. 1 tab PO BID 7 days PRN 14 tabs 0RF pain To hydrocodone-acetaminophen 5-325 mg #10 tabs per 30 days. MassPat Verified. Partial Fill upon patient request. 1 tab PO BID 30 days PRN 10 tabs 0RF pain
== END ==
LOC: HO.HMCFM 10:26
PROVIDERS: PCP Family Medicine; Visit Provider Family Medicine
DX: J18.9 Pneumonia, unspecified organism (principal); M16.12 Unilateral primary osteoarthritis, left hip; M54.16 Radiculopathy, lumbar region; I10 Essential (primary) hypertension

== ENCOUNTER → 2024-08-21 10:26 | Outpatient (BNVA) | payer OTHER, SELFPAY | PROVIDERS: PCP Family Medicine; Visit Provider Family Medicine ==

== ENCOUNTER 2024-09-04 13:58 | Outpatient (AMB) | payer OTHER, SELFPAY ==
--- NOTE | 2024-09-04 14:05 | MHC.OFFVIS ---
Vital Signs 09/04/24 14:14 09/04/24 14:15 09/04/24 14:42 Height 5 ft 7 in Weight 230 lb BMI 36.0 BP 204/132 H 207/134 H 189/107 H Blood Pressure Location Lt brachial Rt brachial Rt brachial Position Sitting Sitting Sitting Pulse 141 H 144 H 121 H Pulse Source Pulse Oximeter Pulse Oximeter Pulse Oximetry (%) 95 97 Oxygen Delivery Method Room Air Room Air Comment bp recheck Intake Visit Reasons: Shoulder Pain Intake Note: Pain today 04/12 Curtain Roller Assembler Required: No Accompanied by: Self / Same As Patient Allergies milk [MILK] Allergy (Severe, Verified 09/04/24 14:16) enterocolitis wheat [WHEAT] Allergy (Intermediate, Verified 09/04/24 14:16) enterocolitis amoxicillin [From AUGMENTIN] Adverse Reaction (Intermediate, Verified 09/04/24 14:16) N/V clavulanic acid [From AUGMENTIN] Adverse Reaction (Intermediate, Verified 09/04/24 14:16) N/V corn Adverse Reaction (Mild, Verified 09/04/24 14:16) Nausea and Vomiting ibuprofen [From MOTRIN] Adverse Reaction (Mild, Verified 09/04/24 14:16) ULCERS naproxen [NAPROXEN] Adverse Reaction (Mild, Verified 09/04/24 14:16) ULCERS NSAIDS (Non-Steroidal Anti-Inflamma [NSAIDS] Adverse Reaction (Mild, Verified 09/04/24 14:16) ULCERS oats Adverse Reaction (Mild, Verified 09/04/24 14:16) Abdominal Pain HPI Comments Details: Patient presents back to the office today for follow up, left shoulder pain reports history of left shoulder pain, relieved with cortisone injections in the past denies recent imaging or injections states hip has been giving out and to avoid falling he has used the right arm to grab things and hold himself up this has worsened his pain has visit with SONDRA scheduled in one month for second opinion on his hip BP and HR elevated again today, he states this has been ongoing denies chest pain, headaches, syncope, weakness, dizziness, shortness of breath, peripheral edema Prior: Kale presents back to the office today for follow-up Complaining of pain to the left 2nd 3rd and 4th toes. States this has been ongoing for several months. Also reports they feel cold and he will have intermittent swelling of his bilateral lower extremities. He does take diuretics for his lower extremity edema Denies current use of anticoagulants. Denies history of DVT, PE. Prior: Kale presents back to the office today for follow up c/o left hip pain for last 2 years, has been worse over the last 8 months completed PT less than 6 months ago without improvement of his pain using a cane for ambulation pain worse with sitting and walking MRI 2022 reviewed, results as per below Previous visit: Kale is a very pleasant 53-year-old male who presented to the office today for follow-up right lower extremity pain /numbness and left hip pain. Patient previously seen by Dr. Hernandez with diagnostic testing and most recently underwent a right saphenous nerve sprint with no improvement. He was then planned for a right femoral nerve sprint but states that he did not feel this would provide benefit of pain relief given the 1st sprint was unhelpful. He endorses pain from the right sarkar down to the foot with noticeable skin discoloration and hair loss. He does state that if he walks long distances the leg will swell. He had been evaluated by vascular and was told to wear compression socks. He has been working on weight loss to help with pain And diabetes but states it is difficult due to his limited mobility. Patient also complaining of left hip pain, he was evaluated by orthopedics in February but has yet to follow-up in their office. Prior: 52-year-old male presenting today for a follow-up of MRI results ? He reports swelling in his leg while walking. He has discoloration of the skin on his leg that started recently. He has tried using compressor stocking in the past. He has difficulty walking his dog and visiting the park with his daughter. He reports pain in his leg to the extent that his blood pressure reading starts elevating. He was recently diagnosed with diabetes mellitus. He has started gaining weight recently. He recently underwent an MRI of the lumbar spine without contrast. He no longer reports back pain. Pain is described mostly on the anterior sarkar and in the calf at the site of his previous surgery. He is not interested in any kind of spine intervention. [facility] Medical History (Updated 09/04/24 @ 15:01 by Brianna Enriquez, PHARMACY TECHNICIAN, INSURANCE HEALTHCARE REPRESENTATIVE) Abnormal chest x-ray Dyslipidemia Uncontrolled type 2 diabetes mellitus with hyperglycemia, with long-term current use of insulin Chronic allergic rhinitis Diabetes Complex regional pain syndrome I Deficient knowledge of leg surgery home care Sinusitis Pre-op evaluation Methadone use GERD (gastroesophageal reflux disease) History of kidney stones Internal and external bleeding hemorrhoids Severe persistent asthma Sciatica Arthritis Anemia Hiatal hernia Dysphagia Hepatitis C COPD (chronic obstructive pulmonary disease) HTN (hypertension) History of drug abuse Cellulitis Surgical History History of common bile duct surgery History of hemorrhoidectomy Hx of endoscopy History of colonoscopy History of laparoscopy History of appendectomy Family History Father Diabetes Hypertension Mother Hypertension Social History Housing: Apartment Are you a primary animal care supervisor to a significant other at home: No Do you presently have visiting nurse or other home services: No Alcohol intake: never Comment: cramping, relieved partially after using bathroom Patient Tobacco Use Status: Former Tobacco user Tobacco use type: Cigarette e-Cigarette/Vaping Use: Never Used Second Hand Smoke Exposure: No Substance Use Type: Opiates service: No Current occupational status: unemployed Current occupational exposures/hazards: No Cognitive needs: No Hearing needs: No Vision needs: No Review of Systems Const All systems reviewed & are unremarkable except as noted in HPI and below Physical Exam Vital Signs: Last Vital Signs Pulse 144 H 09/04/24 14:15 BP 207/134 H 09/04/24 14:15 Pulse Ox 95 09/04/24 14:14 Oxygen Delivery Method Room Air 09/04/24 14:14 BMI result Body Mass Index 36.0 General: awake, alert, oriented. Answers questions appropriately. Fully engaged in examination. Skin: warm, dry, intact HEENT: Normocephalic. Hearing intact. Cardiac: External chest normal in appearance. Respiratory: No cough, audible wheezing or stridor. Abdomen: without gross distension. MS: No obvious swelling or deformities. Left shoulder: tenderness to palpation over AC joint. decreased ROM-pain with overhead, cross body and behind the back reach Neurological: Oriented to person, place, time and situation. Thought process intact. Ambulates with the use of a cane Psychiatric: Appropriate mood and affect. Good judgment and insight. Results Reviewed Results Reviewed: 05/21/2023 MRI Assessment & Plan Assessment & Plan (1) Lower extremity edema: Code(s): R60.0 - Localized edema Category: Medical (2) Pain of left lower extremity: Code(s): M79.605 - Pain in left leg Category: Medical (3) Left shoulder pain: Code(s): M25.512 - Pain in left shoulder Category: Medical Plan Kale presented to the office today for evaluation management of his left shoulder pain X-ray ordered for evaluation Will schedule for fluoroscopy guided left intra-articular shoulder injection with local anesthetic Patient's vital signs were reviewed and rechecked. Consistent with most recent visit patient's BP and heart rate are elevated. Again he was strongly advised to seek treatment in the emergency room which he adamantly declines. Advised of the dangers and risks including CVA, [place], cardiac arrest. Referral placed to cardiology All questions and concerns were answered, patient agrees with the plan. Follow up after injection, sooner if needed Orders: Orders XR shoulder LT min 2V Today M25.512 - Pain in left shoulder Referrals Cardiology Referral E78.5 - Hyperlipidemia, unspecified, I10 - Essential (primary) hypertension, I16.0 - Hypertensive urgency Coding Level of Care Code Est Pt Level 3 (91049) Complex EM visit Add On G2211 Diagnoses Lower extremity edema R60.0 Pain of left lower extremity M79.605 Left shoulder pain M25.512
[2024-09-04 14:14] VITALS: BP 204/132; PULSE 141; O2SAT 95; BMI 36.0
[2024-09-04 14:15] VITALS: BP 207/134; PULSE 144
[2024-09-04 14:42] VITALS: BP 189/107; PULSE 121; O2SAT 97
== END 2024-09-04 14:39 | disposition home or self-care (01) ==
PROVIDERS: PCP Family Medicine; Visit Provider Registered Nurse Emergency
DX: R60.0 Localized edema (principal); M79.605 Pain in left leg; M25.512 Pain in left shoulder
CPT/HCPCS: 99213; G2211

== ENCOUNTER → 2024-09-04 13:58 | Outpatient (BNVA) | payer OTHER, SELFPAY | PROVIDERS: PCP Family Medicine; Visit Provider Registered Nurse Emergency | DX: M79.605 Pain in left leg (principal); M25.512 Pain in left shoulder; R60.0 Localized edema | CPT/HCPCS: 99212 ==

== ENCOUNTER 2024-09-10 10:07 | Outpatient (REF) | payer OTHER, SELFPAY ==
--- NOTE | ~2024-09-10 | XR_ITS ---
CLINICAL HISTORY: M25.512 - Pain in left shoulder 4 view left shoulder Comparison: None Findings: Bones intact. No dislocations. No significant arthritic change. No erosions. No radiopaque foreign body. IMPRESSION: 1. No acute findings This document has been electronically signed by: Naomy Burnett MD on 09/10/2024 17:46:44
== END 2024-09-10 10:08 | disposition home or self-care (01) ==
LOC: HO.XRAY 10:07
PROVIDERS: PCP Family Medicine; Visit Provider Registered Nurse Emergency
DX: M25.512 Pain in left shoulder (principal)
CPT/HCPCS: 73030

== ENCOUNTER → 2024-09-10 10:16 | Outpatient (BNV) | payer OTHER, SELFPAY | PROVIDERS: PCP Family Medicine; Visit Provider Radiology Diagnostic Radiology | DX: M25.512 Pain in left shoulder (principal) | CPT/HCPCS: 73030 ==

== ENCOUNTER 2024-09-17 15:10 | Outpatient (REF) | payer OTHER, SELFPAY ==
--- NOTE | ~2024-09-17 | CT_ITS ---
CLINICAL HISTORY: R07.9 - Chest pain, unspecified CT chest without contrast Comparison: None Findings: The heart is normal size. No thyroid lesion. No significant mediastinal adenopathy. Mild atherosclerotic disease of the aorta. Mild circumferential thickening of the distal esophagus. Reference axial images 75 through 79, there is occlusion of the lingular segment bronchus with atelectasis distal to this. No effusion. No pneumothorax. Mild airway thickening. The visualized upper abdomen is unremarkable. No suspicious bone lesion. Symmetric bilateral gynecomastia. Impression: There is endobronchial occlusion of the lingular segment, possibly related to mucous plugging. Alternate endobronchial lesion not excluded. There is atelectasis of the lung distal to this. Pulmonary consultation and follow-up recommended. Mild circumferential thickening of the distal esophagus. Correlation for esophagitis. Symmetric gynecomastia. This document has been electronically signed by: Juan Carlos Boyd MD on 09/18/2024 08:46:58
== END 2024-09-17 15:11 | disposition home or self-care (01) ==
LOC: HO.CT 15:10
PROVIDERS: PCP Family Medicine; Visit Provider Hospitalist
DX: R07.9 Chest pain, unspecified (principal); R93.89 Abnormal findings on diagnostic imaging of other specified body structures
CPT/HCPCS: 71250

== ENCOUNTER → 2024-09-17 15:11 | Outpatient (BNV) | payer OTHER, SELFPAY | PROVIDERS: PCP Family Medicine; Visit Provider Radiology Vascular & Interventional Radiology | DX: R07.9 Chest pain, unspecified (principal) | CPT/HCPCS: 71250 ==

== ENCOUNTER 2024-09-19 11:36 | Outpatient (AMB) | payer OTHER, SELFPAY ==
--- NOTE | 2024-09-19 11:29 | A.OFFPC_ITS ---
Intake Visit Reasons: High bp, has cuff at home/[phone] Intake Note: b/p review pt toke b/p and it was 140/73 hr 78 Allergies milk [MILK] Allergy (Severe, Verified 09/19/24 11:31) enterocolitis clindamycin Allergy (Intermediate, Verified 09/19/24 11:31) Vomiting wheat [WHEAT] Allergy (Intermediate, Verified 09/19/24 11:31) enterocolitis amoxicillin [From AUGMENTIN] Adverse Reaction (Intermediate, Verified 09/19/24 11:31) N/V clavulanic acid [From AUGMENTIN] Adverse Reaction (Intermediate, Verified 09/19/24 11:31) N/V corn Adverse Reaction (Mild, Verified 09/19/24 11:31) Nausea and Vomiting ibuprofen [From MOTRIN] Adverse Reaction (Mild, Verified 09/19/24 11:31) ULCERS naproxen [NAPROXEN] Adverse Reaction (Mild, Verified 09/19/24 11:31) ULCERS NSAIDS (Non-Steroidal Anti-Inflamma [NSAIDS] Adverse Reaction (Mild, Verified 09/19/24 11:31) ULCERS oats Adverse Reaction (Mild, Verified 09/19/24 11:31) Abdominal Pain Tobacco use date assessed: 12/13/23 Dental Screening Dental Screen Date: 09/21/23 HPI High bp, has cuff at home/[phone] HPI Details 54 y/o male presents to f/u hypertension via telemedicine. BP has been high in office before. He is able to check his blood pressure at home - he notes 140 systolic pressure. [facility] Medical History (Updated 09/04/24 @ 15:01 by Brianna Enriquez APRN, CERTIFIED MASTER SAFECRACKER) Abnormal chest x-ray Dyslipidemia Uncontrolled type 2 diabetes mellitus with hyperglycemia, with long-term current use of insulin Chronic allergic rhinitis Diabetes Complex regional pain syndrome I Deficient knowledge of leg surgery home care Sinusitis Pre-op evaluation Methadone use GERD (gastroesophageal reflux disease) History of kidney stones Internal and external bleeding hemorrhoids Severe persistent asthma Sciatica Arthritis Anemia Hiatal hernia Dysphagia Hepatitis C COPD (chronic obstructive pulmonary disease) HTN (hypertension) History of drug abuse Cellulitis Surgical History History of common bile duct surgery History of hemorrhoidectomy Hx of endoscopy History of colonoscopy History of laparoscopy History of appendectomy Family History Father Diabetes Hypertension Mother Hypertension Social History Housing: Apartment Are you a primary intensive care unit registered nurse to a significant other at home: No Do you presently have visiting nurse or other home services: No Alcohol intake: never Comment: cramping, relieved partially after using bathroom Patient Tobacco Use Status: Former Tobacco user Tobacco use type: Cigarette e-Cigarette/Vaping Use: Never Used Second Hand Smoke Exposure: No Substance Use Type: Opiates service: No Current occupational status: unemployed Current occupational exposures/hazards: No Cognitive needs: No Hearing needs: No Vision needs: No Questionnaire Thrive Questionnaire Date Thrive assessed: 11/17/22 CORNELIUS-7 AMB Questionnaire CORNELIUS-7 Date CORNELIUS - 7 assessed: 11/17/22 Source: Developed by Drs. Sigifredo Matson, Sangeeta Sandy, Ty Davis and colleagues, with an educational frida from [employer]. Review of Systems Const Denies chills, Denies fatigue, Denies fever(s), Denies headache(s) and Denies weakness ENT Denies dizziness and Denies headache(s) Card Denies dyspnea Resp Denies cough, Denies dyspnea, Denies wheezing and Denies other (shortness of breath) Musc Denies numbness and Denies tingling Neuro Denies dizziness, Denies headache(s), Denies numbness, Denies tingling and Denies weakness Psych Denies anxiety and Denies depression Endo Denies fatigue Aller/Immun Denies wheezing Physical exam (Primary Care) Tobacco/Smoking Status: Tobacco use Status Tobacco use date assessed 12/13/23 09/19/24 11:35 Patient Tobacco Use Status Former Tobacco user 09/19/24 11:35 Tobacco use type Cigarette 09/19/24 11:35 e-Cigarette/Vaping Use Never Used 09/19/24 11:35 Thrive Assessment: Date of Thrive Assessment Date Thrive assessed 11/17/22 09/19/24 11:35 Telehealth Telehealth Telehealth Platform: Telephone Location of provider rendering services: practice address Location of patient: address on file Patient Identification confirmed using: Name, : Yes Telehealth method: voice only Patient verbally consented to treatment: Yes Patient verbally consented to billing insurance company: Yes Patient informed of any privacy concerns related to visit: Yes Minutes spent on Phone/Video with Pt.: 9 Coding Level of Care Code Tele Est Pt Level 2 (02414) Diagnoses Primary hypertension I10 Hypertension type: primary hypertension Assessment & Plan Assessment & Plan (1) HTN (hypertension): Code(s): I10 - Essential (primary) hypertension Category: Medical Qualifiers: Hypertension type: primary hypertension Qualified Code(s): I10 - Essential (primary) hypertension Plan: Spoke?to?patient?about?his?very?high?blood?pressures. Had?sent?a?script?for?amlodipine?but?patient?refused?it. He?says?that?his?blood?pre ssures?are?only?high?when?he?is?frustrated?about?being?in?pain?at?visits. He?says?at?home?his?blood?pressures?are??okay?, however?on?further?discussion,?he?says?that?when?they?are?okay,?his?systolic?b lood?pressures?are?in?the?140s. Had?a?discussion?with?patient?and?he?agrees?to?try?amlodipine.??He?will?continue ?his?lisinopril?and?hydrochlorothiazide Will?have?him?get?another?nurse?visit?check?his?blood?pressures?next?week - I?will?make?further?adjustments?as?necessary We?will?follow-up?in?3?months?or?sooner?if?needed Medications: New amlodipine 10 mg PO DAILY 90 tabs 2RF 90 days Changed From hydrocodone-acetaminophen 5-325 mg #10 tabs per 30 days. [facility]Pat Verified. Partial Fill upon patient request. 1 tab PO BID 30 days PRN 10 tabs 0RF pain To hydrocodone-acetaminophen 5-325 mg #15 tabs per 30 days. MassPat Verified. Partial Fill upon patient request. 1 tab PO BID PRN 15 tabs 0RF pain 30 days
== END 2024-09-19 17:05 | disposition home or self-care (01) ==
LOC: HO.HMCFM 11:36
PROVIDERS: PCP Family Medicine; Visit Provider Family Medicine
DX: I10 Essential (primary) hypertension (principal)

== ENCOUNTER → 2024-09-26 11:23 | Outpatient (BNVA) | payer OTHER, SELFPAY | PROVIDERS: PCP Family Medicine; Visit Provider Internal Medicine Gastroenterology | DX: K59.00 Constipation, unspecified (principal) | CPT/HCPCS: 99212 ==

== ENCOUNTER 2024-11-04 06:43 | Outpatient (REF) | payer OTHER, SELFPAY ==
--- NOTE | ~2024-11-04 | FL_ITS ---
EXAMINATION: FLUOROSCOPY GUIDANCE FOR NEEDLE PLACEMENT CLINICAL INFORMATION: M25.512 - Pain in left shoulder COMPARISON: None available. TECHNIQUE: Fluoroscopy guidance was provided to referring physician during intervention. No radiologist was present during exam FINDINGS/ FL/FL guidance in treatment room IMPRESSION: There is a single digital images obtained of the left shoulder with needle overlying the glenohumeral joint space and contrast opacifying the soft tissues. FLUOROSCOPY TIME: 0.2 minutes DOSE AREA PRODUCT: 1.44 uGy-m2 (microgray-meter squared) Electronically signed by: Cheng Jackson MD 11/05/2024 10:46 AM JOYCELYN
--- OUTSIDE RECORDS SUMMARY | 2024-11-04 06:45 | XMS_ITS ---
Author Organization [facility] Address [address] [place] [address] Care Team Providers Care Consulting Nurse Name Role Phone Good Harper MD Primary Care Provider Kiet Byrd Unavailable [phone] REASON FOR VISIT diab shoes Encounters Encounter Location Date Provider Diagnosis [facility] [address] [place] [address] 10/24/2024 Kiet Sutherland Plan Of Treatment Next Appt Details Provider Name:Kiet Sutherland , 12/04/2024 02:45:00 PM, [address] [facility], [address] [address], [place], [address], Progress Notes * Kale ZHONGDOB:1970 (54 yo M)Acc No.[id number]:10/24/2024 Patient:?Kale ZHONG :1970???Age:54 Y???Sex:Male Address:[address] [place], [address] * * Date:?
--- OUTSIDE RECORDS SUMMARY | 2024-11-04 06:45 | XMS_ITS | Clinical Summary ---
Author Organization [facility] Address [address] [place] [address] Care Team Providers Care Case Making Machine Operator Name Role Phone Marylu Estrada MD Primary Care Provider [phone] Surgical History Surgery Date Site/Laterality Comments APPENDECTOMY 2010 PROCEDURE: HISTORICAL APPENDECTOMY KIDNEY STONE SURGERY 2010 PROCEDURE: MS NEPHROLITHOTOMY REMOVAL CALCULUS HEMORRHOID SURGERY 2010 PROCEDURE: DESTRUCTION OF HEMORRHOIDS COLONOSCOPY 08/14/12 [facility] PROCEDURE: HISTORICAL COLONOSCOPY; COMMENT: hemorrhoids; repeat under propofol in ten yrs ESOPHAGOGASTRODUODENOSCOPY 08/14/12 [facility] PROCEDURE: MS ESOPHAGOGASTRODUODENOSCOPY TRANSORAL DIAGNOSTIC; COMMENT: Hiatus hernia Medical History Medical History Date Comments Asthma DX:Asthma; COMME NT: Frequent hospitalizations GI bleed DX:GI bleed; COM MENT: 99 - 4 untis - NSAID Abdominal pain DX:Abdominal christen n Opiate dependence ([facility]) 03/28/2012 DX:O piate dependence ([facility]) Boxer's fracture DX:Boxer's frac ture Nephrolithiasis DX:Nephrolithias is GI bleed DX:GI bleed; COM MENT: Upper GI bleed secondary to NSAIDs Family History Relation Name Status Comments Daughter Alive times 2, asthma Father Alive diabetes, asthm a Maternal Grandfather Maternal Grandmother Mother Alive asthma Paternal Grandfather Paternal Grandmother Sister 1 Alive times 4, all yanez ve asthma Sister 2 HIV, drug abuse Son Alive times 2, asthma Social History Tobacco Use Types Packs/Day Years Used Date Smoking Tobacco: Former Smokeless Tobacco: Former Alcohol Use Standard Drinks/Week Comments No 0 (1 standard drink = 0.6 oz pur e alcohol) Sex and Gender Information Value Date Recorded Sex Assigned at Not on file Legal Sex Male 5:02 AM EST Gender Identity Not on file Sexual Orientation Not on file Obstetrics History Plan of Treatment Health Maintenance Due Date Last Done Comments DTaP,Tdap,and Td Vaccines (1 - Tdap) 01/05/1988 Hepatitis B Vaccines (1 of 3 - 19+ 3-dose series) 01/05/1988 Pneumococcal Vaccine: 50+ Ye ars (1 of 1 - PCV) 2019 Zoster Vaccines (1 of 2) 2019 Cholesterol Screening (Lipid Panel) 08/28/2023 Colorectal Cancer Screening: Colonoscopy 08/28/2023 Depression Screening 08/28/2023 HIV Screening 08/28/2023 Hepatitis C Screening 08/28/2023 Social Influencers of Health Screening 08/28/2023 COVID-19 Vaccine ( - 2023-2 5 season) 2024 Influenza Vaccine (#1) 2024 HIB Vaccines Aged Out No longer eligi ble based on patient's age to complete this topic HPV Vaccines Aged Out No longer eligi ble based on patient's age to complete this topic Hepatitis A Vaccines Aged Out No long er eligible based on patient's age to complete this topic IPV Vaccines Aged Out No longer eligi ble based on patient's age to complete this topic MMR Vaccines Aged Out No longer eligi ble based on patient's age to complete this topic Meningococcal ACWY Vaccine Aged Out N o longer eligible based on patient's age to complete this topic Meningococcal B Vacine Aged Out No lo nger eligible based on patient's age to complete this topic Pneumococcal Vaccine: Pediat rics (0 to 5 Years) and At-Risk Patients (6 to 64 Years) Aged Out No longer eligible b ased on patient's age to complete this topic RSV Immunization Patients Un roberto 20 months Aged Out No longer eligible b ased on patient's age to complete this topic Varicella Vaccines Aged Out No longer eligible based on patient's age to complete this topic Care Teams Case Making Machine Operator Relationship Specialty Start Date End Date Marylu Estrada MD [address] [place] [address] PCP - General Internal Medicine 10/01/12
--- OUTSIDE RECORDS SUMMARY | 2024-11-04 06:45 | XMS_ITS | Encounter Summary ---
Author Organization [facility] Address [address] [place] [address] Care Team Providers Care Dairy Inspector Name Role Phone Unavailable Primary Care Provider Unavailabl e Reason for Visit * Reason Comments Throat Problem Encounter Details Date Type Department Care Team ([facility] st Contact Info) Description 11/15/2016 Telephone [facility] [address] [address] Leah Bonner NP Throat Problem Social History Tobacco Use Types Packs/Day Years Used Date Smoking Tobacco: Never Sex and Gender Information Value Date Recorded Sex Assigned at Not on file Legal Sex Male 3:52 AM EDT Gender Identity Not on file Sexual Orientation Not on file documented as of this encounter Miscellaneous Notes * Telephone Encounter - Angelika Garcia - 11/15/2016 3:52 PM EDT Per Arty at Help desk rapid strep will be removed from [facility] by the [facility] support team. He is placinga ticket as I accidentally resulted the rapid throat test under the wrong patient account. documented in this encounter Plan of Treatment Not on file documented as of this encounter Visit Diagnoses Not on filedocumented in this encounter
--- OUTSIDE RECORDS SUMMARY | 2024-11-04 06:45 | XMS_ITS | Clinical Summary ---
Author Organization [facility] Address [address] [place] [address] Care Team Providers Care Assurance Specialist Name Role Phone Unavailable Primary Care Provider Unavailabl e Allergies Active Allergy Reactions Criticality Noted Date Comments Ibuprofen 11/15/2016 GI bleed Nsaids 11/15/2016 GI bleed Medications No known medications Active Problems No known active problems Social History Tobacco Use Types Packs/Day Years Used Date Smoking Tobacco: Never Sex and Gender Information Value Date Recorded Sex Assigned at Not on file Legal Sex Male 3:52 AM EDT Gender Identity Not on file Sexual Orientation Not on file Last Filed Vital Signs Vital Sign Reading Time Taken Comments Blood Pressure 121/78 11/15/2016 3:14 PM EDT Pulse 92 11/15/2016 3:14 PM EDT Temperature 36.5 ??C (97.7 ??F) 11/15/2016 3:13 PM ED T Respiratory Rate 20 11/15/2016 3:13 PM EDT Oxygen Saturation - - Inhaled Oxygen Concentration - - Weight - - Height - - Body Mass Index - - Plan of Treatment Health Maintenance Due Date Last Done Comments Hepatitis C Screening 1970 DTaP/Tdap/Td (1 - Tdap) 1987 Hep B (1 of 3 - 19+ 3-dose series) 01/05/1988 Pneumococcal 50+ years (1 of 1 - PCV) 2019 Zoster (Shingrix) (1 of 2) 2019 COVID-19 Vaccine ( - 2023-2 5 season) 2024 Influenza (#1) 2024 HPV Vaccine Aged Out No longer eligi ble based on patient's age to complete this topic Hep A Aged Out No longer eligi ble based on patient's age to complete this topic Hib Aged Out No longer eligi ble based on patient's age to complete this topic Meningococcal ACWY Aged Out No longer eligible based on patient's age to complete this topic Insurance [facility] FFS ONE CARE
--- OUTSIDE RECORDS SUMMARY | 2024-11-04 06:46 | XMS_ITS ---
[facility] Address [address] [place] [address] Care Team Providers Care Semi Conductor Assembler Name Role Phone Good Harper MD Primary Care Provider Kiet Byrd Unavailable [phone] Allergies Allergen (clinical drug ingredient) Drug/Non Drug Allergy documented on EMR Reaction Allergy Type Onset Date Status [place], Wheat, Oats (uncoded) Unknown Allergy Active ibuprofen Advil Unknown Drug Allergy Active Aleve Unknown Drug Allergy Active amoxicillin / clavulanate Augmentin Unknown Drug Allergy Active Motrin Unknown Drug Allergy Active REASON FOR VISIT At Risk Footcare, Painful Nail(s) aggravated by shoes and causing difficulty standing/walking., ToeIrritation, Skin problem(s) Medications Medication SIG (Take, Route, Frequency, Duration) Notes Start Date End Date Status traMADol HCl Not-Ha ing Clotrimazole 1 % 1 APPLICATION TWICE A DAY EXTERNALLY 7 DAY(S) External for 30 Not-Takin g Doxycycline Hyclate 100 MG TAKE 1 CAPSULE BY MOUTH TWICE A DAY FOR 7 DAYS Oral for 7 Not-Taking hydrOXYzine HCl 25 MG TAKE 1 TABLET BY M OUTH EVERY 8 HOURS NEEDED Oral for 30 Not-Taking predniSONE 10 MG TAKE SIX TABLETS SANTY LY FOR THREE DAYS, THEN GO DOWN BY 1 TABLET EVERY THREE DAYS TOTAL OF 18 DAYS Oral for 18 Not-Takin g Prednisone Not-Takin g Z Pac Not-Taking Losartan Potassium-HCTZ Not-Taking Nightsplint . . . AFO - L1930 for . Not-Taking Physical Therapy . . . 2-3x/week for 3- 4 weeks 04/28/2020 Not-Taking Atorvastatin Calcium 20 MG 1 tablet Orally Once a day Active Extra Depth Orthopedic Shoes, (1) Pair With (3) Pair Custom Heat Molded Multidensity Innersoles Dx: NIDDM/PVD(E11.51), Hammertoe Foot Deformity(M20.41,M20.4 2), Preulcerative Skin Lesion(s)(L85.1) Wear Daily for 365 days 06/02/2024 Active Betamethasone Dipropionate 0.05 % APPLY TO THE AFFECTED AREAS ON THE LEGS TWICE DAILY FOR 2 WEEKS, BREAK ONE WEEK USE VASELINE, REPEAT External for 30 Not-Taking Budesonide 0.5 MG/2ML INHALE 1 VIAL VIA NEBULIZER TWICE A DAY Inhalation for 90 Not-Taking Cetirizine HCl 10 MG TAKE 1 TABLET BY [facility] EVERY DAY Oral for 90 Not-Taking Lisinopril 30 MG 1 tablet Orally Once a day Active Omeprazole 20 MG 1 capsule 30 minutes before morning meal Orally Once a day Active NovoLOG 30 units Active Magnesium 1000mg Active Montelukast Sodium 10 MG 1 tablet Orally Once a day Active Ammonium Lactate 12 % 1 application Externally to affected areas of dry skin to feet except for between the toes Twice a day for 30 days Active Ozempic 25 units Active Albuterol Active Lantus 20 units Active Dupixent 300 MG/2ML as directed Subcutaneous Active Sucralfate 1 GM/10ML 10 ML ON AN EMPTY STOMACH TWICE A DAY ORALLY 30 DAY(S) Oral for 30 Not-Taking Social History Tobacco Use: Social History Observation Description Date Details (start date - stop date) Never Smoker NA - NA Alcohol Screen Question Answer Notes Did you have a drink containing alcohol in the p ast year? No Points 0 Interpretation Negative Tobacco use other than smoking: Question Answer Notes Are you an other tobacco user? No Tobacco Control (Standard) Question Answer Notes Tobacco use: Nonsmoker Vital Signs Blood pressure systolic 140 mm Hg 09/08/19 25 Blood pressure diastolic 58 mm Hg 025 Height 5ft 7in in 09/08/2024 Weight 230 lbs 09/08/2024 BMI 36.02 kg/m2 09/08/2024 Procedures Procedure Date Ordered Date Performed Result Body Sit e 05255-ACIIVCG NAIL, 1-5 09/08/2024 N/A 38846-JHDU SKIN LESIONS, 2 TO 4 09/08/2024 N/A [id number] DYSTROPHIC NAILS ANY # 09/08/2024 N/A Encounters Encounter Location Date Provider Diagnosis [facility] [place] [address] [place] [address] 09/08/2024 Kiet Nunezier Type 2 diabetes mellitus with diabetic peripheral angiopathy without gangrene E11.51 ; Tinea unguium B35.1 ; Pain in right toe(s) M79.674 ; Pain in left toe(s) M79.675 and Xerosis of skin L85.3 Assessments Encounter Date Diagnosis (ICD Code) Assessment Notes Treatment Notes Treatment Clinical Notes Section Notes 09/08/2024 Type 2 diabetes mellitus with diabetic peripheral angiopathy without gangrene (ICD-10 - E11.51) Q7(A), Q8(2B), Q9(1B,2C) 09/08/2024 Tinea unguium (ICD-10 - B35.1) 09/08/2024 Pain in right toe(s) (ICD-10 - M79.674) 09/08/2024 Pain in left toe(s) (ICD-10 - M79.675) 09/08/2024 Xerosis of skin (ICD-10 - L85.3) 09/08/2024 Other Plan Of Treatment Medication Medication Name Sig Start Date Stop Date Notes Ammonium Lactate 12 % 1 application Exte rnally to affected areas of dry skin to feet except for between the toes Twice a day for 30 days Pending Test Test Name Order Date [id number] NAIL, 1-5 09/08/2024 38781-SFQU SKIN LESIONS, 2 TO 4 09/08/19 25 [id number] DYSTROPHIC NAILS ANY # Next Appt Details Follow Up: 2 Months, Reason: Provider Name:Kiet Sutherland , 12/04/2024 02:45:00 PM, [address], [address] [facility], [place], [address], Procedure Notes * Category Sub-Category Detail Notes Keratoma Treatment Parring or Cutting o f Benign Hyperkeratotic Lesion(s) (-56) 2-4 Lesions - Due to the at risk nature of the patients medical condition as documented in the exam findings, performance of this keratoderma treatment is medically necessary as its management by an unskilled/untrained nonprofessional would put this patients foot and overall health at risk. Therefore, the benign hyperkeratotic lesions, ( 4) in total, locations as stated and described in the exam ( Medial , IPJ , TA , Medial , IPJ , T5 , Plantar, Heel(s) , B/L), were pared, and/or cut utilizing a sterile 15 blade, tissue nippers, and/or power dremel instrumentation by the physician of record - 52992, Q8 Debride Nails 1-5 Procedure: Due to the cli nical pathology outlined in the exam findings, performance of this nail treatment is medically necessary as its management by an unskilled/untrained nonprofessional would put this patients foot and overall health at risk. Therefore, debridement to affected nail(s), as described in exam ( T4 , T9), was performed exclusively by the physician of record to reduce/remove overall nail length, girth, thickness, subungual debris, and necrotic tissue, by manual and/or electrical means through the use of a nail nipper and/or dremel stylegrinder, to a more viable healthy nail plate or bed tissue 5 nails or fewer in number. Silver nitrate was used for any petechial bleeding as necessary. Definitive antifungal treatment options, both pharmaceutical and surgical, have been reviewed and discussed with the patient. The patient solely prefers the use of intermittent/as needed professional debridement services for their nail condition and understands that additional periodic treatments may be required as necessary to maintain effective symptomatic relief - 83645 Nail Reduction Nail Reduction (-27) Trimming o f all dystrophic nails - Due to the at risk nature of the patients medical condition as documented in the exam findings, performance of this nail treatment is medically necessary as its management by an unskilled/untrained nonprofessional would put this patients foot and overall health at risk. Therefore, the dystrophic nails, in locations as stated and described in the exam ( TA, T1, T2, T3, T5, T6, T7, T8 ), were debrided by the phisician of record to reduce/remove overall nail length and girth, by manual and electrical means with use of a nail nipper and/or dremel, to more viable healthy nail plate or bed tissue - G0127, Q8 Progress Notes * Kale ZHONGDOB:1970 (54 yo M)Acc No.[id number]:09/08/2024 Progress Note Patient:?Kale ZHONG Provider:?Kiet Sutherland DPM :1970???Age:54 Y???Sex:Male Carl e:09/08/2024 [address], [id number] Pcp:Good Harper MD Subjective: * Chief Complaints: * ???At Risk FootcarePainful N ail(s) aggravated by shoes and causing difficulty standing/walking.Toe IrritationSkin problem(s) * HPI: ???At Risk footcare:?Pt States Last PCP Visit:?Date?08/21/2024 ???Toe pain:?Treatments:?Rx shoes, states still needs - appt scheduled for the end of this month.?Skin problems:?Nature:?dryness , scaling.?Location:?B/L .?Duration:?several days.?Course:?worse.? * ROS:?General/Constitutional:?Nausea?denies.?Vomiting?denies.?Hunger Thirst?denies.?Loss appetite?denies.?Chills?denies.?Fatigue?denies.?Fever?denies.?Night Sweats?denies.?Unexplained weight loss?denies.?Unexplained weight gain?denies.?HEENTM:?Dentures?denies.?Dizziness?denies.?Glasses/contacts?admits.?Retinopathy?den ies.?Blurred/double vision?denies.?TMJ?denies.?Discharge/drainage?denies.?Implants?denies.?Sore throat?denies.?Dental implants?denies.?Hard of hearing ?denies.?Difficulty chewing/swallowing/speaking?denies.?Nose bleeds?denies.?Sore mouth?denies.?Respiratory:?On O xygen?denies.?Pneumonia/pleurisy?denies.?Bronchitis?denies.?Emphysema?denies.?Co ughing?admits.?Cough blood?denies.?Shortness of breath?admits.?Wheezing?admits.?Cardiovascular:?Pacemaker?denies.?MVP?denies.?WPW?denies.?CHF?denies.?Heart attack?denies.?Septal defect?denies.?Rapid beat?denies.?Chest pain ?denies.?Atrial Fib.?denies.?Murmur/Palpitations?denies.?Gastrointestinal:?Hemorrhoids?denies.?Stomach/Abdominal pain?admits.?Dark blood stool?denies.?Irritable bowel ?denies.?Constipation?admits.?Diarrhea?denies.?Hematology:?Swelling?admits.?Clots?denies.?Varicose Veins?admits.?Bruising?denies.?Bleeding problem?denies.?Genitourinary:?Blood urine?denies.?Frequent/Painfu/urination/bladder control?denies.?Kidney stones?denies.?Infection (UTI)?denies.?Nephropathy?denies.?sex trans dis (STD)?denies.?Prostate?denies.?Musculoskeletal:?Hammertoes?admits.?Bunions?denies.?Back Pain?denies.?Muscle Cramps/ Resting?admits.?Muscle cramps / walking?admits.?Generalized aches and pains?denies.?Trauma to hip(s)?admits , affecting the left hip.?Weakness?admits.?Integ.:?Gonsalves?denies.?Scars?denies.?Corns/calluses?admits.?Ingrown nails?admits.?Painful nails?admits.?Open Sores?denies.?Rashes?denies.?Neurologic:?Difficulty sleeping?admits.?Brain disorder?denies.?Numbness?admits.?Balance t rouble?admits.?Confusion?denies.?Fainting/blackouts?denies.?Tingling?admits.?Jayesh mors?denies.? * Medical History:? * Surgical History:?appendecto my kidney stones stomach surgery * Hospitalization/Major Diagno stic Procedure:?[facility] Scan Right Foot, Xray Right foot, 10/31/19[facility] Venous Ultra Sound right leg to rule out DVT 01/23/20[facility] Ultra Sound Left Lower Extremity 12/29/19[facility] Ultra Sound Bilateral Lower Extremity 12/17/19[facility] Ultra Sound Raoul Dop Bilateral Lower Extremity 12/05/19[facility] ER Foot swelling 03/14/20[facility] ER can't walk 04/13/20[facility] 04/23/20 * Family History:?Mother: dece ased, foot problems, diagnosed with Unspecified essential hypertension, Family history of arthritis.?Father: alive, diagnosed with Diabetic - NIDDM, Unspecified essential hypertension.?Siblings: diagnosed with Other malignant neoplasm of unspecified site.? * Social History:?Tobacco Use:?Tobacco use other than smoking?Are you an other tobacco user??No ?Tobacco Control (Standard)?Tobacco use:?Nonsmoker ???Drugs/Alcohol:?Drugs?Have you used drugs other than those for medical reasons in the past 12 months??No ?Alcohol Screen?Did you have a drink containing alcohol in the past year??No ?Points?0 ?Interpretation?Negative ???Miscellaneous:?Caffeine: no, none. ?Children: yes, 4. ?Exercise: no, Pain. ?Marital status: single. ?Occupation: unemployed. * Medications:?TakingOzempic , Notes to Pharmacist: 25 unitsAlbuterol Lantus , Notes to Pharmacist: 20 unitsDupixent 300 MG/2ML Solution Prefilled Syringe as directed Subcutaneous NovoLOG , Notes to Pharmacist: 30 unitsMagnesium , Notes to Pharmacist: 1000mgMontelukast Sodium 10 MG Tablet 1 tablet Orally Once a day Lisinopril 30 MG Tablet 1 tablet Orally Once a day Omeprazole 20 MG Capsule Delayed Release 1 capsule 30 minutes before morning meal Orally Once a day Atorvastatin Calcium 20 MG Tablet 1 tablet Orally Once a day Extra Depth Orthopedic Shoes, (1) Pair With (3) Pair Custom Heat Molded Multidensity Innersoles . Dx: NIDDM/PVD(E11.51), Hammertoe Foot Deformity(M20.41,M20.42), Preulcerative Skin Lesion(s)(L85.1) Wear Daily Taking Ozempic , Notes to Pharmacist: 25 unitsTaking Albuterol Taking Lantus , Notes to Pharmacist: 20 unitsTaking Dupixent 300 MG/2ML Solution Prefilled Syringe as directed Subcutaneous Taking NovoLOG , Notes to Pharmacist: 30 unitsTaking Magnesium , Notes to Pharmacist: 1000mgTaking Montelukast Sodium 10 MG Tablet 1 tablet Orally Once a day Taking Lisinopril 30 MG Tablet 1 tablet Orally Once a day Taking Omeprazole 20 MG Capsule Delayed Release 1 capsule 30 minutes before morning meal Orally Once a day Taking Atorvastatin Calcium 20 MG Tablet 1 tablet Orally Once a day Taking Extra Depth Orthopedic Shoes, (1) Pair With (3) Pair Custom Heat Molded Multidensity Innersoles . Dx: NIDDM/PVD(E11.51), Hammertoe Foot Deformity(M20.41,M20.42), Preulcerative Skin Lesion(s)(L85.1) Wear Daily Not-Taking/PRNBetamethasone Dipropionate 0.05 % Ointment APPLY TO THE AFFECTED AREAS ON THE LEGS TWICE DAILY FOR 2 WEEKS, BREAK ONE WEEK USE VASELINE, REPEAT External Budesonide 0.5 MG/2ML Suspension INHALE 1 VIAL VIA NEBULIZER TWICE A DAY Inhalation Cetirizine HCl 10 MG Tablet TAKE 1 TABLET BY MOUTH EVERY DAY Oral Losartan Potassium-HCTZ Nightsplint . . . . AFO - L1930 Physical Therapy . . . . 2-3x/week Prednisone Z Pac traMADol HCl Clotrimazole 1 % Cream 1 APPLICATION TWICE A DAY EXTERNALLY 7 DAY(S) External Doxycycline Hyclate 100 MG Capsule TAKE 1 CAPSULE BY MOUTH TWICE A DAY FOR 7 DAYS Oral hydrOXYzine HCl 25 MG Tablet TAKE 1 TABLET BY MOUTH EVERY 8 HOURS NEEDED Oral predniSONE 10 MG Tablet TAKE SIX TABLETS DAILY FOR THREE DAYS, THEN GO DOWN BY 1 TABLET EVERY THREE DAYS TOTAL OF 18 DAYS Oral Sucralfate 1 GM/10ML Suspension 10 ML ON AN EMPTY STOMACH TWICE A DAY ORALLY 30 DAY(S) Oral Medication List reviewed and reconciled with the patientNot-Taking/PRN Betamethasone Dipropionate 0.05 % Ointment APPLY TO THE AFFECTED AREAS ON THE LEGS TWICE DAILY FOR 2 WEEKS, BREAK ONE WEEK USE VASELINE, REPEAT External Not-Taking/PRN Budesonide 0.5 MG/2ML Suspension INHALE 1 VIAL VIA NEBULIZER TWICE A DAY Inhalation Not-Taking/PRN Cetirizine HCl 10 MG Tablet TAKE 1 TABLET BY MOUTH EVERY DAY Oral Not-Taking/PRN Losartan Potassium-HCTZ Not-Taking/PRN Nightsplint . . . . AFO - L1930 Not-Taking/PRN Physical Therapy . . . . 2-3x/week Not-Taking/PRN Prednisone Not-Taking/PRN Z Pac Not-Taking/PRN traMADol HCl Not-Taking/PRN Clotrimazole 1 % Cream 1 APPLICATION TWICE A DAY EXTERNALLY 7 DAY(S) External Not-Taking/PRN Doxycycline Hyclate 100 MG Capsule TAKE 1 CAPSULE BY MOUTH TWICE A DAY FOR 7 DAYS Oral Not-Taking/PRN hydrOXYzine HCl 25 MG Tablet TAKE 1 TABLET BY MOUTH EVERY 8 HOURS NEEDED Oral Not-Taking/PRN predniSONE 10 MG Tablet TAKE SIX TABLETS DAILY FOR THREE DAYS, THEN GO DOWN BY 1 TABLET EVERY THREE DAYS TOTAL OF 18 DAYS Oral Not-Taking/PRN Sucralfate 1 GM/10ML Suspension 10 ML ON AN EMPTY STOMACH TWICE A DAY ORALLY 30 DAY(S) Oral Medication List reviewed and reconciled with the patient * Allergies:?AdvilAleveMotrinA ugmentinCorn, Wheat, Oatsyes[Allergies Verified] Objective: * Vitals:?Ht: 5ft 7in, Wt:230, BMI:36.02, Shoe size: 9, BP:140/58mm Hg, BS: did not test, Ht-cm: 170.18 cm, Wt-k.33 kg. * ???Past Orders: ???Lab:HEMOGLOBIN A1C (GLYCO HEMOGLOBIN) (Order Date - 09/08/2024) (Collection Date & Time - 09/08/2024 01:29 PM) ? Value Reference Range ?HEMOGLOBIN A1C % (HH) 6.5 * Examination: ???Ophthalmology Referral: ?DIABETES EYE EXAM?Procedure Performed:?Yes ?Date of Exam Performed?05/07/2024 ?Diabetic Retinopathy Screening:?Yes ?Findings of Diabetic Eye Exam:?no retinopathy?Vascular: ?DP PULSES (B):? 0/4, B/L.?PT PULSES (B):? 0/4, B/L.?CAPILLARY FILL TIME:? delayed, all digits, B/L.?TROPHIC CONDITION-TEXTURE/ELASTICITY/TURGOR/HAIR GROWTH (B):? decreased, fragile, thin, shiny, with sparse to absent hair growth, B/L.?TEMPERTURE GRADIENT (C):? decreased, cool to cool, proximal to distal, B/L.?PIGMENTATION:?mottled, brawny,?B/L.?EDEMA (C):?2/4 , pitting , without aching pain , Leg(s) , Ankle(s) , Foot , B/L.?CLAUDICATION (C):?denies, B/L.?REST PAIN:?denies, B/L.?PARESTHESIA (C):?absent, B/L.?BURNING (C):?absent, B/L.?VARICOSITIES:?present, moderate, nonpainful, B/L.?Nails: ?NAILS are:?Elongated, overgrown, dystrophic, lytic, greater than 3mm thick, discolored and friable with crumbly malodorous subungual debris, with pain on palpation , T4 , T9 , all other nails not described with characteristics as possessing mycosis are elongated, overgrown, and dystrophic ( TA, T1, T2, T3, T5, T6, T7, T8?).?Dermatologic: ?SKIN FINDINGS:?Skin exam reveals Keratotic lesion(s) located at , Medial , IPJ , TA , Medial , IPJ , T5 , Plantar, Heel(s) , B/L , Skin shows sign(s) of, dryness, scaling, in a stocking fashion, no fissure(s) present, B/L.? Assessment: * Assessment: 1.?Tinea unguium - B35.1???2 .?Type 2 diabetes mellitus with diabetic peripheral angiopathy without gangrene - E11.51 (Primary)???Notes :Q7(A), Q8(2B), Q9(1B,2C)???3.?Pain in right toe(s) - M79.674???4.?Pain in left toe(s) - M79.675???5.?Xerosis of skin - L85.3???Specify :Acute problem, Uncomplicated (3),Rx Management (4)??? Plan: * Treatment: 2.?Tinea unguium?Procedure: 17770-IOVJPVN NAIL, 1-5 3.?Xerosis of skin? Start Ammonium Lactate Cream, 12 %, 1 application, Externally to affected areas of dry skin to feet except for between the toes, Twice a day, 30 days, 140, Refills 2.?? * Procedures:?Debride Nails 1-5:?Procedure:?Due to the clinical pathology outlined in the exam findings, performance of this nail treatment is medically necessary as its management by an unskilled/untrained nonprofessional would put this patients foot and overall health at risk. Therefore, debridement to affected nail(s), as described in exam (?T4?,?T9), was performed exclusively by the physician of record to reduce/remove overall nail length, girth, thickness, subungual debris, and necrotic tissue, by manual and/or electrical means through the use of a nail nipper and/or dremel stylegrinder, to a more viable healthy nail plate or bed tissue 5 nails or fewer in number. Silver nitrate was used for any petechial bleeding as necessary. Definitive antifungal treatment options, both pharmaceutical and surgical, have been reviewed and discussed with the patient. The patient solely prefers the use of intermittent/as needed professional debridement services for their nail condition and understands that additional periodic treatments may be required as necessary to maintain effective symptomatic relief - 09209.?Keratoma Treatment:?Parring or Cutting of Benign Hyperkeratotic Lesion(s)?(-56) 2-4 Lesions - Due to the at risk nature of the patients medical condition as documented in the exam findings, performance of this keratoderma treatment is medically necessary as its management by an unskilled/untrained nonprofessional would put this patients foot and overall health at risk. Therefore, the benign hyperkeratotic lesions, ( 4) in total, locations as stated and described in the exam (?Medial?,?IPJ?,?TA?,?Medial?,?IPJ?,?T5?,?Plantar,?Heel(s)?,?B/L), were pared, and/or cut utilizing a sterile 15 blade, tissue nippers, and/or power dremel instrumentation by the physician of record - 27896, Q8.?Nail Reduction:?Nail Reduction?(-27) Trimming of all dystrophic nails - Due to the at risk nature of the patients medical condition as documented in the exam findings, performance of this nail treatment is medically necessary as its management by an unskilled/untrained nonprofessional would put this patients foot and overall health at risk. Therefore, the dystrophic nails, in locations as stated and described in the exam ( TA, T1, T2, T3, T5, T6, T7, T8?), [facility] to reduce/remove overall nail length and girth, by manual and electrical means with use of a nail nipper and/or dremel, to more viable healthy nail plate or bed tissue - G0127, Q8.? * Procedure Codes:?G0127 LUISA ING DYSTROPHIC NAILS ANY #, Modifiers: XS , [id number] DEBRIDE NAIL, 1-5, Modifiers: XS 70798 TRIM SKIN LESIONS, 2 TO 4, Modifiers: XS , Q8 * Preventive Medicine:? ??Counseling:?Discussion:?-13: Office or other outpatient visit for the evaluation and management of an established patient, which required a medically appropriate history and/or examination and LOW level of DECISION MAKING for: 1 STABLE ACUTE UNCOMPLICATED PROBLEM, 2 OR MORE MINOR PROBLEMS, OR 1 STABLE CHRONIC PROBLEM, THAT POSE(S) A LOW RISK FOR MORBIDITY/MORTALITY. The visit on the day of the encounter encompassed interpreting the data and educating the patient as to the nature of their condition, treatment options available according to their individual PMH, meds, allergies, and overall health/living conditions, as well as any potential risks or complications that may occur from a failure to adhere to, and participate in, the recommended course of therapy. The discussion included a complete verbal, and/or written explanation of the examination results, any x-rays taken, the proposed diagnosis, and outline of the treatment plan. A schedule for future care needs was also explained. The patient verbalized an understanding of the instructions at this time and agreed to be an active participant in their treatment. If the patient should think of any questions or concerns after the visit, I have encouraged the patient to call the office.?Xerosis:?The patient was counseled on the diagnosis, potential etiologies, and treatment options for their skin condition. We discussed the risks and benefits of each option from performing no treatment, to utilizing OTC topical skin creams/ointments, to utilizing prescription topical creams/ointments, to utilizing customized compounded topical medications and use of nocturnal occlusion with any/all previously detailed therapies. We discussed the advantages and disadvantages of each possible treatment and importance for adherence to all the recommended therapies for optimum success and avoid potential complications such as open sore/infection/possible hospitalization. We discussed the potential effectiveness of each topical preparation as well as each ones possible side effects and/or patient medication interactions. Patient questions re: use, dosage, successful outcomes, and application consistency were reviewed and the patient verbalized that all answers were clearly understood. The patient has decided to apply Rx skin creams to their feet save the interspaces while paying special attention to the heels. Such was sent to their pharmacy at the time of visit.? ??Screening/Special Tests:?Fall Risk?Assessment:?Performed ?Plan of Care:?Documented ?Type of fall plan of care:?Balance, strength and gait training or instruction provided ?Screening:?Two or more falls with injury in the past year ?FALLS: Screening for Future Fall Risk?Have you had two or more falls in the past year??Yes ?Have you had any falls with injury in the past year??Yes * Follow Up:?2 Months * Images: * Sign off status: Completed true * Provider:?Kiet Sutherland DPM Date:?2024 Generated for Spike don/Trinity/Donnie on:?11/04/2024 06:45 AM EST History and Physical Notes * HPI (History of Present Illness) Category Sub-Category Detail Notes Category Not es Toe pain Treatments: Rx shoes, states still needs - appt scheduled for the end of this month Skin problems Nature: dryness , scaling Location: B/L Duration: several days Course: worse At Risk footcare Pt States Last PCP Visit: Date: 4 Examination Category Sub-Category Detail Notes Category Not es Dermatologic SKIN FINDINGS: Skin exam reveal s Keratotic lesion(s) located at , Medial , IPJ , TA , Medial , IPJ , T5 , Plantar, Heel(s) , B/L , Skin shows sign(s) of, dryness, scaling, in a stocking fashion, no fissure(s) present, B/L Ophthalmology Referral DIABETES EYE EXAM Procedu re Performed:: Yes ?Date of Exam Performed: 05/07/2024 Diabetic Retinopathy Screening:: Yes Findings of Diabetic Eye Exam:: no retin opathy Vascular DP PULSES (B): 0/4, B/L PT PULSES (B): 0/4, B/L CAPILLARY FILL TIME: delayed, all digits , B/L TEMPERTURE GRADIENT (C): decreased, cool to cool, proximal to distal, B/L TROPHIC CONDITION-TEXTURE/ELASTICITY/TURGOR/HAIR GROWTH (B): decreased, fragile, thin, shiny, with sp arse to absent hair growth, B/L EDEMA (C): 2/4 , pitting , with out aching pain , Leg(s) , Ankle(s) , Foot , B/L VARICOSITIES: present, moderate, n onpainful, B/L CLAUDICATION (C): denies, B/L REST PAIN: denies, B/L PIGMENTATION: mottled, brawny, B/L PARESTHESIA (C): absent, B/L BURNING (C): absent, B/L Nails NAILS are: Elongated, overg rown, dystrophic, lytic, greater than 3mm thick, discolored and friable with crumbly malodorous subungual debris, with pain on palpation , T4 , T9 , all other nails not described with characteristics as possessing mycosis are elongated, overgrown, and dystrophic ( TA, T1, T2, T3, T5, T6, T7, T8 )
--- OUTSIDE RECORDS SUMMARY | 2024-11-04 06:46 | XMS_ITS | Patient Health Record ---
[facility] Address [address] [place] [address] Care Team Providers Care Microfilming Document Preparer Name Role Phone Good Harper MD Primary Care Provider Kiet Byrd Unavailable [phone] Allergies Allergen (clinical drug ingredient) Drug/Non Drug Allergy documented on EMR Reaction Allergy Type Onset Date Status [place], Wheat, Oats (uncoded) Unknown Allergy Active ibuprofen Advil Unknown Drug Allergy Active Aleve Unknown Drug Allergy Active amoxicillin / clavulanate Augmentin Unknown Drug Allergy Active Motrin Unknown Drug Allergy Active Results Component Value Reference Range Notes HEMOGLOBIN A1C (GLYCOHEMOGLO BIN) Reviewed date:06/02/2024 01:05:25 PM Interpretation: Performing Lab: Notes/Report: TOTAL HEMOGLOBIN (HGBA1C) 6.5 HEMOGLOBIN A1C (GLYCOHEMOGLO BIN) Reviewed date:09/08/2024 01:29:51 PM Interpretation: Performing Lab: Notes/Report: HEMOGLOBIN A1C % (HH) 6.5 Reason For Referral No Information Medications Medication SIG (Take, Route, Frequency, Duration) Notes Start Date End Date Status Ammonium Lactate 12 % 1 application Externally to affected areas of dry skin to feet except for between the toes Twice a day for 30 days Active Prednisone Not-Takin g Z Pac Not-Taking traMADol HCl Not-Ha ing Clotrimazole 1 % 1 APPLICATION TWICE A DAY EXTERNALLY 7 DAY(S) External for 30 Not-Takin g Doxycycline Hyclate 100 MG TAKE 1 CAPSULE BY MOUTH TWICE A DAY FOR 7 DAYS Oral for 7 Not-Taking Ozempic 25 units Active hydrOXYzine HCl 25 MG TAKE 1 TABLET BY M OUTH EVERY 8 HOURS NEEDED Oral for 30 Not-Taking Albuterol Active predniSONE 10 MG TAKE SIX TABLETS SANTY LY FOR THREE DAYS, THEN GO DOWN BY 1 TABLET EVERY THREE DAYS TOTAL OF 18 DAYS Oral for 18 Not-Takin g Lantus 20 units Active Sucralfate 1 GM/10ML 10 ML ON AN EMPTY STOMACH TWICE A DAY ORALLY 30 DAY(S) Oral for 30 Not-Taking Dupixent 300 MG/2ML as directed Subcutaneous Active NovoLOG 30 units Active Magnesium 1000mg Active Montelukast Sodium 10 MG 1 tablet Orally Once a day Active Lisinopril 30 MG 1 tablet Orally Once a day Active Omeprazole 20 MG 1 capsule 30 minutes before morning meal Orally Once a day Active Atorvastatin Calcium 20 MG 1 tablet Orally [...] HCl 10 MG TAKE 1 TABLET BY MO UTH EVERY DAY Oral for 90 Not-Taking Losartan Potassium-HCTZ Not-Taking Nightsplint . . . AFO - L1930 for . Not-Taking Physical Therapy . . . 2-3x/week for 3- 4 weeks 04/28/2020 Not-Taking Social History Tobacco Use: Social History [...] (Standard) Question Answer Notes Tobacco use: Nonsmoker Problems Problem Type SNOMED Code ICD Code Onset Dates Problem Status W/U Status Risk Notes Problem Acquired hammer toe of right foot (4919920077554 105) Other hammer toe(s) (acquired), right foot (M20.41) Active confirmed Problem Acquired hammer toe of left foot (5419660184875 103) Other hammer toe(s) (acquired), left foot (M20.42) Active confirmed Problem Type 2 diabetes mellitus with peripheral angiopathy (252523103) Type 2 diabetes mellitus with diabetic peripheral angiopathy without gangrene (E11.51) Active confirmed Q7(A), Q8(2B), Q9(1B,2C) Vital Signs Blood pressure diastolic 58 mm Hg 09/08/2024 Height 5ft 7in in 09/08/2024 Blood pressure systolic 140 mm Hg 09/08/2024 Weight 230 lbs 09/08/2024 BMI 36.02 kg/m2 09/08/2024 Procedures Procedure Date Ordered Date Performed Result Body Sit e 32321-SKNSXVQ NAIL, 1-5 06/02/2024 N/A 02917-JHJI SKIN LESIONS, 2 TO 4 06/02/2024 N/A E4433-MPFUSXHB DYSTROPHIC NAILS ANY # 06/02/2024 N/A 68522-JFBBRKD NAIL, 1-5 09/08/2024 N/A 41074-MLER SKIN LESIONS, 2 TO 4 09/08/2024 N/A K0433-UQDNCGKE DYSTROPHIC NAILS ANY # 09/08/2024 N/A Encounters Encounter Location Date [facility] [address] 06/02/2024 Kiet Zuletaunier Type 2 diabetes mellitus with diabetic peripheral angiopathy without gangrene E11.51 ; Tinea unguium B35.1 ; Pain in right toe(s) M79.674 ; Pain in left toe(s) M79.675 ; Other hammer toe(s) (acquired), right foot M20.41 and Other hammer toe(s) (acquired), left foot M20.[address] [facility] [address] 09/08/2024 Kiet Sutherland Type 2 diabetes mellitus with diabetic peripheral angiopathy without gangrene E11.51 ; Tinea unguium B35.1 ; Pain in right toe(s) M79.674 ; Pain in left toe(s) M79.675 and Xerosis of skin L85.[address] [facility] [address] 10/24/2024 Kietbrandi Sutherland [facility] [address] 05/09/2024 Kietbrandi Sutherland [facility] [address] 08/20/2024 Kiet Sutherland [facility] Encounter Date Diagnosis (ICD Code) Assessment Notes Treatment Notes Treatment Clinical Notes Section Notes 09/08/2024 Tinea unguium (ICD-10 - B35.1) 09/08/2024 Type 2 diabetes mellitus with diabetic peripheral angiopathy without gangrene (ICD-10 - E11.51) Q7(A), Q8(2B), Q9(1B,2C) 06/02/2024 Tinea unguium (ICD-10 - B35.1) 06/02/2024 Type 2 diabetes mellitus with diabetic peripheral angiopathy without gangrene (ICD-10 - E11.51) Q7(A), Q8(2B), Q9(1B,2C) 09/08/2024 Pain in right toe(s) (ICD-10 - M79.674) 06/02/2024 Pain in right toe(s) (ICD-10 - M79.674) 09/08/2024 Pain in left toe(s) (ICD-10 - M79.675) 06/02/2024 Pain in left toe(s) (ICD-10 - M79.675) 09/08/2024 Xerosis of skin (ICD-10 - L85.3) 06/02/2024 Other hammer toe(s) (acquired), right foot (ICD-10 - M20.41) Patient Educated with: DIABETIC FOOT CARE INSTRUCTIONS.p df (DIABETIC FOOT CARE INSTRUCTIONS.p df) 06/02/2024 Other hammer toe(s) (acquired), left foot (ICD-10 - M20.42) 09/08/2024 Other Plan Of Treatment Pending Test Test Name Order Date 26177-NFFZFGU NAIL, 1-5 09/08/2024 04047-OZPXODO NAIL, 1-5 06/02/2024 87687-EZXV SKIN LESIONS, 2 TO 4 09/08/19 25 44240-TXJM SKIN LESIONS, 2 TO 4 06/02/20 24 O0904-OEDICYIW DYSTROPHIC NAILS ANY # X1422-ZVHACJTT DYSTROPHIC NAILS ANY # [id number],[id number] TENDON SHEATH/LIGAMENT 0 04/19/202047836,L5978-CSI TENDON SHEATH/LIGAMENT 0 04/15/202032507,V7596-PTJ TENDON SHEATH/LIGAMENT 0 03/18/2020 Next Appt Details Provider Name:Kiet Sutherland , 12/04/2024 02:45:00 PM, [address], [address], [place], [address], Insurance Providers Payer Name Payer Address Payer Phone Subscriber Number Group Number Insured Name Patient Relationship to Insured Coverage Start Date Coverage End Date [facility] [employer] Claims [address] [place] [phone] [id number] Kale Zhong Self - patient is the insured Medical (General) History Medical History History ICD Code asthma Back,Hip,and Knee pain Diverticulosis Hypertension Reflux ( GERD) Stomach ulcer Chicken pox Transfusions Diabetes mellitus Surgical History Surgery Date(Month/Year) appendectomy kidney stones stomach surgery Hospitalization History Reason Date(Month/Year) [facility] 04/23/20 [facility] [place] 04/13/20 [facility] Foot swelling 03/14/20 [facility] Ultra Sound Raoul Dop Bilateral Lower Extremity 12/05/19 [facility] Ultra Sound Bilateral Lower Extremit y 12/17/19 [facility] [place] Left Lower Extremity 12/03 03/22 [facility] Venous Ultra Sound right leg to rule out DVT 01/23/20 [facility] [place] Scan Right Foot, Xray Right foot, 10/31/19
--- OUTSIDE RECORDS SUMMARY | 2024-11-04 06:46 | XMS_ITS ---
Author Organization [facility] Address [address] [place] [address] Care Team Providers Care Sales Service Manager Name Role Phone Good Harper MD Primary Care Provider Kiet Byrd Unavailable [phone] REASON FOR VISIT diab shoes Encounters Encounter Location Date Provider Diagnosis [facility] [address] [place] [address] 08/20/2024 Kiet Sutherland Plan Of Treatment Next Appt Details Provider Name:Kiet Sutherland , 12/04/2024 02:45:00 PM, [address] [facility] [address], [place], [address], Progress Notes * Kale ZHONGDOB:1970 (54 yo M)Acc No.[id number]:08/20/2024 Patient:?Kale ZHONG :1970???Age:54 Y???Sex:Male Address:[address] [place], [address] * true * Date:? Generated for Printi ng/Faniallg/eTransmitting on:?11/04/2024 06:46 AM EST
== END 2024-11-04 06:44 | disposition home or self-care (01) ==
LOC: CF 06:43
PROVIDERS: Visit Provider Anesthesiology
DX: M25.512 Pain in left shoulder (principal); R60.0 Localized edema
CPT/HCPCS: 20610; J2003; J2795; J3301; Q9967

== ENCOUNTER 2024-11-04 13:03 | Outpatient (AMB) | payer OTHER, SELFPAY ==
[2024-11-04 13:11] VITALS: BP 152/98; PULSE 97; O2SAT 97
--- NOTE | 2024-11-04 13:11 | MHC.OFFVIS ---
Vital Signs 11/04/24 13:11 11/04/24 14:17 BP 152/98 H 162/96 H Blood Pressure Location Lt brachial Lt brachial Position Sitting Sitting Pulse 97 103 H Pulse Source Pulse Oximeter Pulse Oximeter Pulse Oximetry (%) 97 94 Oxygen Delivery Method Room Air Room Air Comment Pre-Op Post-Op Intake Visit Reasons: LEFT INTRA-ARTICULAR SHOULDER INJECTION Allergies milk [MILK] Allergy (Severe, Verified 09/26/24 11:36) enterocolitis clindamycin Allergy (Intermediate, Verified 09/26/24 11:36) Vomiting wheat [WHEAT] Allergy (Intermediate, Verified 09/26/24 11:36) enterocolitis amoxicillin [From AUGMENTIN] Adverse Reaction (Intermediate, Verified 09/26/24 11:36) N/V clavulanic acid [From AUGMENTIN] Adverse Reaction (Intermediate, Verified 09/26/24 11:36) N/V corn Adverse Reaction (Mild, Verified 09/26/24 11:36) Nausea and Vomiting ibuprofen [From MOTRIN] Adverse Reaction (Mild, Verified 09/26/24 11:36) ULCERS naproxen [NAPROXEN] Adverse Reaction (Mild, Verified 09/26/24 11:36) ULCERS NSAIDS (Non-Steroidal Anti-Inflamma [NSAIDS] Adverse Reaction (Mild, Verified 09/26/24 11:36) ULCERS oats Adverse Reaction (Mild, Verified 09/26/24 11:36) Abdominal Pain PFSH Medical History (Updated 09/04/24 @ 15:01 by Brianna Enriquez CORRECTIONAL CASEWORK SPECIALIST, ADVISORY SERVICES ASSOCIATE) Abnormal chest x-ray Dyslipidemia Uncontrolled type 2 diabetes mellitus with hyperglycemia, with long-term current use of insulin Chronic allergic rhinitis Diabetes Complex regional pain syndrome I Deficient knowledge of leg surgery home care Sinusitis Pre-op evaluation Methadone use GERD (gastroesophageal reflux disease) History of kidney stones Internal and external bleeding hemorrhoids Severe persistent asthma Sciatica Arthritis Anemia Hiatal hernia Dysphagia Hepatitis C COPD (chronic obstructive pulmonary disease) HTN (hypertension) History of drug abuse Cellulitis Surgical History History of common bile duct surgery History of hemorrhoidectomy Hx of endoscopy History of colonoscopy History of laparoscopy History of appendectomy Family History Father Diabetes Hypertension Mother Hypertension Social History Housing: Apartment Are you a primary acute care assistant to a significant other at home: No Do you presently have visiting nurse or other home services: No Alcohol intake: never Comment: cramping, relieved partially after using bathroom Patient Tobacco Use Status: Former Tobacco user Tobacco use type: Cigarette e-Cigarette/Vaping Use: Never Used Second Hand Smoke Exposure: No Substance Use Type: Opiates service: No Current occupational status: unemployed Current occupational exposures/hazards: No Cognitive needs: No Hearing needs: No Vision needs: No Physical Exam Vital Signs: Last Vital Signs Pulse 103 H 11/04/24 14:17 BP 162/96 H 11/04/24 14:17 Pulse Ox 94 11/04/24 14:17 Oxygen Delivery Method Room Air 11/04/24 14:17 Assessment & Plan Assessment & Plan (1) Lower extremity edema: Code(s): R60.0 - Localized edema Category: Medical (2) Pain of left lower extremity: Code(s): M79.605 - Pain in left leg Category: Medical (3) Left shoulder pain: Code(s): M25.512 - Pain in left shoulder Category: Medical Plan Intra-articular left shoulder steroid injection. The patient came to the operating room and was positioned prone on operating table after informed consent was fully and carefully explained to the patient. The left posterior shoulder and left side of the neck was carefully prepped with ChloraPrep and draped with self adhesive utility towels. C-arm was brought over the operating field and image of the glenohumeral joint on the left was demonstrated on the screen. Projection of the anterior medial portion of the joint was chosen to the site of the injection. After that the projection to the skin of the point of interest was injected with small amount of lidocaine 2% mixed with ropivacaine 0.5% one-to-one. After that 22 gauge 3-1/2 inch needle was inserted through the skin and was advanced toward the silhouette of the joint. When needle entered the capsule of the joint injection of the contrast was performed delineating intra-articular spread of the contrast. After that injection of the ropivacaine 0.5% 4 cc mixed with Kenalog 40 mg was performed into the joint. Upon completion of the injection needle was removed sterile Band-Aid was applied. The patient tolerated the procedure well. He was taken outside of the operating room to recovery where he recovered uneventfully. Coding Level of Care Code Procedure Only Diagnoses Lower extremity edema R60.0 Pain of left lower extremity M79.605 Left shoulder pain M25.512
[2024-11-04 14:17] VITALS: BP 162/96; PULSE 103; O2SAT 94
--- OUTSIDE RECORDS SUMMARY | 2024-11-04 16:14 | XMS_ITS | Clinical Summary ---
Author Organization [facility] Address [address] [place] [address] Care Team Providers Care Online Affiliate Marketing Manager Name Role Phone Marylu Estrada MD Primary Care Provider [phone] Surgical History Surgery Date Site/Laterality Comments APPENDECTOMY 2010 PROCEDURE: HISTORICAL APPENDECTOMY KIDNEY STONE SURGERY 2010 PROCEDURE: AR NEPHROLITHOTOMY REMOVAL CALCULUS HEMORRHOID SURGERY 2010 PROCEDURE: DESTRUCTION OF HEMORRHOIDS COLONOSCOPY 08/14/12 [facility] PROCEDURE: HISTORICAL COLONOSCOPY; COMMENT: hemorrhoids; repeat under propofol in ten yrs ESOPHAGOGASTRODUODENOSCOPY 08/14/12 [facility] PROCEDURE: AR ESOPHAGOGASTRODUODENOSCOPY TRANSORAL DIAGNOSTIC; COMMENT: Hiatus hernia Medical History Medical History Date Comments Asthma DX:Asthma; COMME NT: Frequent hospitalizations GI bleed DX:GI bleed; COM MENT: 99 - 4 untis - NSAID Abdominal pain DX:Abdominal christen n Opiate dependence ([facility]) 03/28/2012 DX:O piate dependence ([facility]) Boxer's fracture DX:Boxer's frac ture Nephrolithiasis DX:Nephrolithias [...] age to complete this topic Care Teams Online Affiliate Marketing Manager Relationship Specialty Start Date End Date Marylu Estrada MD [address] [place] [address] PCP - General Internal Medicine 10/01/12
--- OUTSIDE RECORDS SUMMARY | 2024-11-04 16:14 | XMS_ITS | Clinical Summary ---
Author Organization [facility] Address [address] [place] [address] Care Team Providers Care Fitting Room Associate Name Role Phone Unavailable Primary Care Provider [...] patient's age to complete this topic Insurance [facility] FFS ONE C[employer]
--- OUTSIDE RECORDS SUMMARY | 2024-11-04 16:14 | XMS_ITS | Encounter Summary ---
Author Organization [facility] Address [address] [place] [address] Care Team Providers Care Financial Specialist Name Role Phone Unavailable Primary Care Provider Unavailabl e Reason for Visit * Reason Comments Throat Problem Encounter Details Date Type Department Care Team ([facility] st Contact Info) Description 11/15/2016 Telephone [facility] [address] [address] Leah Bonner NP Throat Problem Social History [...] desk rapid strep will be removed from [facility] by the [facility] support team. He is placinga ticket as I accidentally resulted the rapid throat test under the wrong patient account. documented in this encounter Plan of Treatment Not on file documented as of this encounter Visit Diagnoses Not on filedocumented in this encounter
== END 2024-11-04 14:18 | disposition home or self-care (01) ==
LOC: HO.PMCPRC 13:03
PROVIDERS: PCP Family Medicine; Visit Provider Anesthesiology
DX: R60.0 Localized edema (principal); M79.605 Pain in left leg; M25.512 Pain in left shoulder
CPT/HCPCS: 20610; 77002

== ENCOUNTER 2024-11-10 13:35 | Outpatient (AMB) | payer OTHER, SELFPAY ==
[2024-11-10 13:36] VITALS: BP 198/114; PULSE 111; O2SAT 97; BMI 35.6
--- NOTE | 2024-11-10 13:36 | A.OFFVIS_ITS ---
Vital Signs 11/10/24 13:36 11/10/24 13:58 Height 5 ft 7 in Weight 227 lb 1.218 oz BMI 35.6 BP 198/114 H 180/98 H Blood Pressure Location Rt brachial Rt brachial Position Sitting Pulse 111 H Pulse Source Pulse Oximeter Pulse Oximetry (%) 97 Oxygen Delivery Method Room Air Intake Visit Reasons: DM Intake Note: Patient presents today for a follow-up on Type 2 Diabetes Mellitus: Last Diabetic eye exam was on: DUE Last Podiatry exam was on: Patient does not see a Pressing Department Supervisor Most recent HbA1c: 7.2%, 11/10/2024 Random Glucose- 163 mg/dL, Today Insurance Account Executive Required: No Accompanied by: Self / Same As Patient Allergies milk [MILK] Allergy (Severe, Verified 11/10/24 13:38) enterocolitis clindamycin Allergy (Intermediate, Verified 11/10/24 13:38) Vomiting wheat [WHEAT] Allergy (Intermediate, Verified 11/10/24 13:38) enterocolitis amoxicillin [From AUGMENTIN] Adverse Reaction (Intermediate, Verified 11/10/24 13:38) N/V clavulanic acid [From AUGMENTIN] Adverse Reaction (Intermediate, Verified 11/10/24 13:38) N/V corn Adverse Reaction (Mild, Verified 11/10/24 13:38) Nausea and Vomiting ibuprofen [From MOTRIN] Adverse Reaction (Mild, Verified 11/10/24 13:38) ULCERS naproxen [NAPROXEN] Adverse Reaction (Mild, Verified 11/10/24 13:38) ULCERS NSAIDS (Non-Steroidal Anti-Inflamma [NSAIDS] Adverse Reaction (Mild, Verified 11/10/24 13:38) ULCERS oats Adverse Reaction (Mild, Verified 11/10/24 13:38) Abdominal Pain Medication List - Last Reconciled 11/10/24 by Suzie Motta PA-C albuterol sulfate 2.5 mg (3 mL) inhalation Q6H PRN 30 days albuterol sulfate 90 mcg/actuation 2 puffs inhalation Q6H PRN 30 days amlodipine 10 mg PO DAILY 90 days atorvastatin 20 mg PO BEDTIME blood pressure monitor Automatic, Digital. Dx: I10. Daily As directed, 999 days/lifetime blood sugar diagnostic (FreeStyle Lite Strips) As directed, to test blood sugar 4 times a day blood-glucose meter (FreeStyle Lite Meter kit) DX: E11.9, test blood sugar 2 times a day, duration 999 days blood-glucose meter,continuous (FreeStyle James 3 [place]) As directed blood-glucose sensor (FreeStyle James 3 Sensor device) Apply every 14 days As directed cane Daily As directed. 999 days cefpodoxime 200 mg PO BID codeine-guaifenesin 10-100 mg/5 mL 10 mL PO Q6H PRN 10 days crutches (pair of crutches) As directed crutches (pair of crutches) As directed diclofenac sodium 1% (Arthritis Pain (diclofenac)) 4 grams topical BID 30 days Dupixent Pen (dupilumab) 300 mg (2 mL) subcut Q2W NS hktivphoozv-hffsskrek-dziwnuoz 200-62.5-25 mcg (Trelegy Ellipta) 1 inh inhalation DAILY 0 days glipizide ER 5 mg PO DAILY glucose (Dex4 Glucose) 16 grams (4 x 4 gram) PO Q15M PRN Grab bar As directed, 999 days hydrochlorothiazide 12.5 mg PO QAM 30 days hydrocodone-acetaminophen 5-325 mg 1 tab PO BID PRN 30 days ipratropium-albuterol 0.5 mg-3 mg(2.5 mg base)/3 mL 3 mL inhalation Q6H PRN lancets (FreeStyle Lancets) As directed lancets (FreeStyle Lancets) As directed bs checks 2-3 times per day Lantus Solostar U-100 Insulin (insulin glargine) 30 units (0.3 mL) subcut QPM NS lisinopril 40 mg PO DAILY magnesium hydroxide (Milk of Magnesia) 20 mL PO DAILY magnesium oxide 500 mg PO BID methadone 40 mg PO DAILY miscellaneous medical supply Hand-held?shower?head,?As directed, 999 days miscellaneous medical supply 2 med planners; 1 urinal; 1 bed red; 1 commode; 2 grab bars for bed miscellaneous medical supply kristopher harrison small base miscellaneous medical supply Toilet?see?raised,?As directed, 999 days montelukast 10 mg PO BEDTIME mupirocin 2% 1 appl topical BID 7 days nebulizers As directed Novolog FlexPen U-100 Insulin (insulin aspart U-100) Inject 30 units before cong kfast, 20 units before lunch and 20 units before dinner subcutaneously 3 times a day; NS omeprazole 20 mg PO DAILY ondansetron 4 mg PO Q8H PRN 30 days peg-electrolyte soln 420 gram 240 mL PO Q10M pen needle, diabetic (BD Lynda 2nd Gen Pen Needle) DIRECTED INJECTS 4 X/DAY pentoxifylline ER 400 mg PO TID polyethylene glycol 3350 (Miralax) 17 grams PO DAILY PRN prucalopride (Motegrity) 1 mg PO DAILY semaglutide (Ozempic) 0.25 mg (0.368 mL) subcut QWEEK Shower Chair As directed sodium chloride 0.65% (Saline Nasal) 2 sprays intranasal Q2H PRN sodium phosphates 19-7 gram/118 mL (Fleet Enema) 118 mL OR BEDTIME PRN sodium,potassium,mag sulfates 17.5-3.13-1.6 gram (Suprep Bowel Prep Kit) take as instructed HPI HPI DM: Details: Patient is a 54-year-old male with a significant past medical history of hyper tension, type 2 diabetes, ED, dyslipidemia, CKD, chronic pain syndrome, hep C, COPD, methadone use presenting today for a diabetic follow-up. Endo: His A1c is 7.2%. He is on Lantus 30 units at night, NovoLog t.i.d. 30 units, ozempic 0.25 mg weekly, glipizide 5 mg daily -He has tried metformin but did not tolerate. He has tried trulicity but did not tolerate due to vomiting. thong and he states it was effective but was getting abdominal pain and nausea with it. His cgm from today shows usage 93 %, avg blood sugar is 208, 8.3%. He is very high 20 %, 47 % high, 33 % in target, 0% low. He states he has not had any low blood sugars -Last eye exam: end of Sep 2023- states that there were some findings (does not recall name of eye issues) and is seeing retina specialist -Last foot exam: sees Dr. Eastman. CV: blood pressure in the office is 198/114 He is taking the lisinopril 30 mg and hydrochlorothiazide 12.5 mg, amlodipine 10 mg daily. Rechecked blood pressure is 180/98. He is asymptomatic. No chest pain, shortness a breath, dizziness, vision changes, weakness or confusion. States that his only elevated due to pain in his joints. [facility] Medical History Abnormal chest x-ray Dyslipidemia Uncontrolled type 2 diabetes mellitus with hyperglycemia, with long-term current use of insulin Chronic allergic rhinitis Diabetes Complex regional pain syndrome I Deficient knowledge of leg surgery home care Sinusitis Pre-op evaluation Methadone use GERD (gastroesophageal reflux disease) History of kidney stones Internal and external bleeding hemorrhoids Severe persistent asthma Sciatica Arthritis Anemia Hiatal hernia Dysphagia Hepatitis C COPD (chronic obstructive pulmonary disease) HTN (hypertension) History of drug abuse Cellulitis Surgical History History of common bile duct surgery History of hemorrhoidectomy Hx of endoscopy History of colonoscopy History of laparoscopy History of appendectomy Family History Father Diabetes Hypertension Mother Hypertension Social History Housing: Apartment Are you a primary healthcare business analyst to a significant other at home: No Do you presently have visiting nurse or other home services: No Alcohol intake: never Comment: cramping, relieved partially after using bathroom Patient Tobacco Use Status: Former Tobacco user Tobacco use type: Cigarette e-Cigarette/Vaping Use: Never Used Second Hand Smoke Exposure: No Substance Use Type: Opiates service: No Current occupational status: unemployed Current occupational exposures/hazards: No Cognitive needs: No Hearing needs: No Vision needs: No Physical Exam Vital Signs: Last Vital Signs Pulse 111 H 11/10/24 13:36 BP 180/98 H 11/10/24 13:58 Pulse Ox 97 11/10/24 13:36 Oxygen Delivery Method Room Air 11/10/24 13:36 BMI result Body Mass Index 35.6 Const Orientation/consciousness: patient oriented x3 Neuro Other: Ambulates with a cane at baseline. Does not appear to be abnormal. No focal motor deficits noted. General: patient oriented x3, moves all extremities, CN's II-XI intact bilaterally and deep tendon reflexes 2+ bilaterally Results AMB Hemoglobin A1c AMB Hemoglobin A1c 7.2 % Last Edit by DAIN Smyth on 11/10/24 13:53 Results Reviewed Results Reviewed: Laboratory Last Values Glucose (Clinic) 163 mg/dL (60-115) H 11/10/24 13:44 Hgb A1c (Clinic) 7.2 % (4.0-6.0) H 11/10/24 13:51 Assessment & Plan Assessment & Plan (1) Uncontrolled type 2 diabetes mellitus with hyperglycemia, with long-term current use of insulin: Code(s): E11.65 - Type 2 diabetes mellitus with hyperglycemia; Z79.4 - halfway (current) use of insulin Category: Medical Plan: Increase Lantus from 30 units to 40 units. Continue Humalog. Increase glipizide to 10 mg daily Increase Ozempic to 0.5 mg weekly. Follow up in 3 months. Sooner if needed. (2) Hypertensive urgency: Code(s): I16.0 - Hypertensive urgency Category: Medical Plan: continue lisinopril 40 mg daily continue hctz 12.5 mg Continue amlodipine 10 mg daily start metoprolol 25 mg daily. He is completely asymptomatic and denies any chest pain, shortness on headaches or weakness he does appear grossly neurologically intact today in the office. Reports that the elevated blood pressures only because of his pain with walking. He is currently on methadone and states that he is being treated for hip and knee pain. He is frustrated with his chronic pain and has gone to the ER in the past for this and is elevated blood pressure. He states that when he rests for a bit the blood pressure does come down. The repeated blood pressure today was 180/98. Still adamant that he will not have his blood pressure monitor in the ER or have treatment for this. advised to go to ED for this but absolutely refuses. He is aware of the increased risk of heart attack, stroke in early . He states that this is not his 1st time being instructed to go to the ER. Advised to contact PCP's office and return in office in a couple days for a blood pressure rechecked. He has a blood pressure cuff at home he will monitor this let us know. He has a visiting nurse every day. They will call us with the report as well. Orders: Orders AMB Hemoglobin A1c Today E11.69 - Type 2 diabetes mellitus with other specified complication, N52.1 - Erectile dysfunction due to diseases classified elsewhere Medications: New glipizide ER 10 mg PO DAILY 90 tabs 2RF semaglutide (Ozempic) 0.5 mg (0.736 mL) subcut QWEEK 3 mL 4RF metoprolol succinate ER 25 mg PO DAILY 90 tabs 0RF Changed From Lantus Solostar U-100 Insulin (insulin glargine) 30 units (0.3 mL) subcut QPM 15 mL 4RF NS To Lantus Solostar U-100 Insulin (insulin glargine) 40 units (0.4 mL) subcut QPM 15 mL 4RF NS Discontinued glipizide ER Discontinued Reason: Doctor's Order 5 mg PO DAILY 90 tabs 2RF Patient Instructions: Increase Ozempic to 0.5 mg weekly. Increase glipizide to 10 mg daily Increase Lantus from 30 units to 40 units daily Continue with the Humalog. Continue your blood pressure medication but start taking metoprolol 25 mg.. Coding Level of Care Code Est Pt Level 4 (16106) Complex EM visit Add On G2211 Diagnoses Uncontrolled type 2 diabetes mellitus with hyperglycemia, with long-term current use of insulin E11.65; Z79.4 Hypertensive urgency I16.0
[2024-11-10 13:47] LABS: Glucose, Whole Blood 163 mg/dL (60-115)
[2024-11-10 13:58] VITALS: BP 180/98
--- OUTSIDE RECORDS SUMMARY | 2024-11-10 15:22 | XMS_ITS ---
Author Organization [facility] Address [address] [place] [address] Care Team Providers Care Mercury Cracking Tester Name Role Phone Good Harper MD Primary Care Provider Kiet Byrd Unavailable [phone] REASON FOR VISIT diab shoes Encounters Encounter Location Date Provider Diagnosis [facility] [address] [place] [address] 10/24/2024 Kiet Sutherland Plan Of Treatment Next Appt Details Provider Name:Kiet Sutherland , 12/04/2024 02:45:00 PM, [address] [facility], [address] [facility], [place], [address], Progress Notes * Kale ZHONGDOB:1970 (54 yo M)Acc No.[id number]:10/24/2024 Patient:?Kale ZHONG :1970???Age:54 Y???Sex:Male Address:[address] [place], [address] * true * Date:? Generated for Printi ng/Faxing/eTransmitting on:?11/10/2024 03:21 PM EDT
--- OUTSIDE RECORDS SUMMARY | 2024-11-10 15:22 | XMS_ITS | Clinical Summary ---
Author Organization [facility] Address [address] [place] [address] Care Team Providers Care Tree Tapping Laborer Name Role Phone Marylu Estrada MD Primary Care Provider Surgical History Surgery Date Site/Laterality Comments APPENDECTOMY 2010 PROCEDURE: HISTORICAL APPENDECTOMY KIDNEY STONE SURGERY 2010 PROCEDURE: MO NEPHROLITHOTOMY REMOVAL CALCULUS HEMORRHOID SURGERY 2010 PROCEDURE: DESTRUCTION OF HEMORRHOIDS [place] [facility] [place]: HISTORICAL COLONOSCOPY; COMMENT: hemorrhoids; repeat under propofol in ten yrs ESOPHAGOGASTRODUODENOSCOPY 08/14/[place] [facility] [place]EDURE: MO ESOPHAGOGASTRODUODENOSCOPY TRANSORAL DIAGNOSTIC; COMMENT: Hiatus hernia Medical History Medical History Date Comments Asthma DX:Asthma; COMME NT: Frequent hospitalizations GI bleed DX:GI bleed; COM MENT: 99 - 4 untis - NSAID Abdominal pain DX:Abdominal christen n Opiate dependence ([facility]) 03/28/2012 DX:O piate dependence ([facility]) Boxer's fracture DX:Boxer's frac ture Nephrolithiasis DX:Nephrolithias [...] age to complete this topic Care Teams Tree Tapping Laborer Relationship Specialty Start Date End Date Marylu Estrada MD [address] [place] [address] PCP - General Internal Medicine 10/01/12
--- OUTSIDE RECORDS SUMMARY | 2024-11-10 15:22 | XMS_ITS ---
[facility] Address [address] [place] [address] Care Team Providers Care Radiographer Name Role Phone Good Harper MD Primary Care Provider Kiet Byrd Unavailable [phone] Allergies Allergen (clinical drug ingredient) Drug/Non Drug Allergy documented on EMR Reaction Allergy Type Onset Date Status [place], Wheat, Oats (uncoded) Unknown Allergy Active Advil Unknown Drug Allergy Active Aleve Unknown Drug Allergy Active Augmentin Unknown Drug Allergy Active Motrin Unknown [...] HCl 10 MG TAKE 1 TABLET BY [facility] EVERY DAY Oral for 90 Not-Taking [...] Answer Notes Tobacco use: Nonsmoker Vital Signs Height 5ft 7in in 09/08/2024 Weight 230 lbs 09/08/2024 BMI 36.02 kg/m2 09/08/2024 Blood pressure systolic 140 mm Hg 09/08/19 25 Blood pressure diastolic 58 mm Hg 025 Procedures Procedure Date Ordered Date Performed Result Body Sit e 89892-EAHVBCQ NAIL, 1-5 09/08/2024 N/A 00727-IMPF SKIN LESIONS, 2 TO 4 09/08/2024 N/A H3841-GDHKPIXH DYSTROPHIC NAILS ANY # 09/08/2024 N/A Encounters Encounter Location Date Provider Diagnosis [facility] [address] [facility] [address] [place] [address] 09/08/2024 Kiet Sutherland Type 2 diabetes mellitus [...] days Pending Test Test Name Order Date 17378-GHXCNZU NAIL, 1-5 09/08/2024 82734-CAAZ SKIN LESIONS, 2 TO 4 09/08/19 25 Z6768-ODFPAPFT DYSTROPHIC NAILS ANY # Next Appt Details Follow Up: 2 Months, Reason: Provider Name:Kiet Sutherland , 12/04/2024 02:45:00 PM, [address] [facility], [address] [facility], [place], [address], Procedure Notes * Category Sub-Category Detail Notes [...] instrumentation by the physician of record - 17945, Q8 Debride Nails 1-5 Procedure: Due to [...] necessary to maintain effective symptomatic relief - 78579 Nail Reduction Nail Reduction (-27) Trimming o [...] tissue - G0127, Q8 Progress Notes * Clara ZHONG:1970 (54 yo M)Acc No.[id number]:09/08/2024 Progress Note Patient:?Kale ZHONG Provider:?Kiet Sutherland DPM :1970???Age:54 Y???Sex:Male Carl e:09/08/2024 Address: [address], [id number] Pcp:Good Harper MD Subjective: * Chief Complaints: [...] stones stomach surgery * Hospitalization/Major Diagno stic Procedure:?[facility] Scan Right Foot, Xray Right foot, [...] Management (4)??? Plan: * Treatment: 2.?Tinea unguium?Procedure: 37699-HPTERMM NAIL, 1-5 3.?Xerosis of skin? Start Ammonium [...] necessary to maintain effective symptomatic relief - 45472.?Keratoma Treatment:?Parring or Cutting of Benign Hyperkeratotic Lesion(s)?(-56) [...] instrumentation by the physician of record - 95890, Q8.?Nail Reduction:?Nail Reduction?(-27) Trimming of all dystrophic [...] T6, T7, T8?), were debrided by the phisician of record to reduce/remove overall nail length and girth, by manual and electrical means with use of a nail nipper and/or dremel, to more viable healthy nail plate or bed tissue - G0127, Q8.? * Procedure Codes:?G0127 LUISA ING DYSTROPHIC NAILS ANY #, Modifiers: XS , R002397 DEBRIDE NAIL, 1-5, Modifiers: XS 14423 TRIM SKIN LESIONS, 2 TO 4, Modifiers: [...] Sutherland DPM Date:?2024 Generated for Spike don/Trinity/Donnie on:?11/10/2024 03:22 PM EDT History and Physical Notes * HPI (History [...]
--- OUTSIDE RECORDS SUMMARY | 2024-11-10 15:22 | XMS_ITS | Encounter Summary ---
Author Organization [facility] Address [address] [place] [address] Care Team Providers Care Director Client Name Role Phone Unavailable Primary Care Provider Unavailabl e Reason for Visit * Reason Comments Throat Problem Encounter Details Date Type Department Care Team ([facility] st Contact Info) Description 11/15/2016 Telephone [facility] [address] [address] Leah Bonner NP Throat Problem Social History [...] desk rapid strep will be removed from [facility] by the [facility] support team. He is placinga ticket as I accidentally resulted the rapid throat test under the wrong patient account. documented in this encounter Plan of Treatment Not on file documented as of this encounter Visit Diagnoses Not on filedocumented in this encounter
--- OUTSIDE RECORDS SUMMARY | 2024-11-10 15:22 | XMS_ITS ---
Author Organization [facility] Address [address] [place] [address] Care Team Providers Care Terminal Operator Name Role Phone Good Harper MD Primary Care Provider Kiet Byrd Unavailable [phone] REASON FOR VISIT diab shoes Encounters Encounter Location Date Provider [facility] [address] [place] [address] 08/20/2024 Kiet Sutherland Plan Of Treatment Next Appt Details Provider Name:Kiet Sutherland , 12/04/2024 02:45:00 PM, [address] [facility], [place] [address], [place], [address], Progress Notes * Kale ZHONGDOB:1970 (54 yo M)Acc No.[id number]:08/20/2024 Patient:?Kale ZHONG :1970???Age:54 Y???Sex:Male Address:[address] [place], [address] * true * Date:? Generated for Printi ng/Faxing/eTransmitting on:?11/10/2024 03:22 PM EDT
--- OUTSIDE RECORDS SUMMARY | 2024-11-10 15:22 | XMS_ITS | Patient Health Record ---
Author Organization [facility] Address [address] [facility] [place] [address] Care Team Providers Care Pantograph Setter Name Role Phone Good Harper MD Primary Care Provider Kiet Byrd Unavailable [phone] Allergies Allergen (clinical drug ingredient) Drug/Non Drug Allergy documented on EMR Reaction Allergy Type Onset Date Status [place], Wheat, Oats (uncoded) Unknown Allergy Active ibuprofen [...] Problem Acquired hammer toe of right foot (2215664082296 105) Other hammer toe(s) (acquired), right foot (M20.41) Active confirmed Problem Acquired hammer toe of left foot (7578966527937 103) Other hammer toe(s) (acquired), left foot (M20.42) Active confirmed Problem Type 2 diabetes mellitus with peripheral angiopathy (082655138) Type 2 diabetes mellitus with diabetic peripheral angiopathy without gangrene (E11.51) Active confirmed Q7(A), Q8(2B), Q9(1B,2C) Vital Signs Blood pressure diastolic 58 mm Hg 09/08/2024 Height 5ft 7in in 09/08/2024 Blood pressure systolic 140 mm Hg 09/08/2024 Weight 230 lbs 09/08/2024 BMI 36.02 kg/m2 09/08/2024 Procedures Procedure Date Ordered Date Performed Result Body Sit e 21372-YZNFKJR NAIL, 1-5 06/02/2024 N/A 19674-BQDC SKIN LESIONS, 2 TO 4 06/02/2024 N/A T6863-PBOSMFEY DYSTROPHIC NAILS ANY # 06/02/2024 N/A 18257-IQVJKLO NAIL, 1-5 09/08/2024 N/A 40646-KRNW SKIN LESIONS, 2 TO 4 09/08/2024 N/A C3725-HVONIJLH DYSTROPHIC NAILS ANY # 09/08/2024 N/A Encounters Encounter [facility] Date [facility] [address] 06/02/2024 Kiet Zuletaunier Type 2 diabetes mellitus with diabetic peripheral angiopathy without gangrene E11.51 ; Tinea unguium B35.1 ; Pain in right toe(s) M79.674 ; Pain in left toe(s) M79.675 ; Other hammer toe(s) (acquired), right foot M20.41 and Other hammer toe(s) (acquired), left foot M20.42 [facility] [address] 09/08/2024 Kiet Sutherland Type 2 diabetes mellitus with diabetic peripheral angiopathy without gangrene E11.51 ; Tinea unguium B35.1 ; Pain in right toe(s) M79.674 ; Pain in left toe(s) M79.675 and Xerosis of skin L85.[address] [facility] [address] 05/09/2024 Kietbrandi Sutherland [facility] [address] 08/20/2024 Kietbrandi Sutherland [facility] [address] 10/24/2024 Kiet Sutherland [facility] Encounter Date Diagnosis (ICD Code) Assessment Notes Treatment Notes Treatment Clinical Notes Section Notes 06/02/2024 Tinea unguium (ICD-10 - B35.1) 06/02/2024 Type 2 diabetes mellitus with diabetic peripheral angiopathy without gangrene (ICD-10 - E11.51) Q7(A), Q8(2B), Q9(1B,2C) 09/08/2024 Tinea unguium (ICD-10 - B35.1) 09/08/2024 Type 2 diabetes mellitus with diabetic peripheral angiopathy without gangrene (ICD-10 - E11.51) Q7(A), Q8(2B), Q9(1B,2C) 06/02/2024 Pain in right toe(s) (ICD-10 - M79.674) 09/08/2024 Pain in right toe(s) (ICD-10 - M79.674) 09/08/2024 Pain in left toe(s) (ICD-10 - M79.675) 06/02/2024 Pain in left toe(s) (ICD-10 - M79.675) 06/02/2024 Other hammer toe(s) (acquired), right foot (ICD-10 - M20.41) Patient Educated with: DIABETIC FOOT CARE INSTRUCTIONS.p df (DIABETIC FOOT CARE INSTRUCTIONS.p df) 09/08/2024 Xerosis of skin (ICD-10 - L85.3) 06/02/2024 Other hammer toe(s) (acquired), left foot (ICD-10 - M20.42) 09/08/2024 Other Plan Of Treatment Pending Test Test Name Order Date 60242-HZKFDDG NAIL, 1-5 06/02/2024 97652-TCYIKDU NAIL, 1-5 09/08/2024 33690-BLIQ SKIN LESIONS, 2 TO 4 09/08/19 25 51449-OFSJ SKIN LESIONS, 2 TO 4 06/02/20 24 O6615-UWANMPQL DYSTROPHIC NAILS ANY # M9266-VGEYQUNN DYSTROPHIC NAILS ANY # 20737,E7704-SFQ TENDON SHEATH/LIGAMENT 0 03/18/202000546,T8240-EVJ TENDON SHEATH/LIGAMENT 0 04/15/202033017,L5825-JGK TENDON SHEATH/LIGAMENT 0 04/19/2020 Next Appt Details Provider Name:Kiet Sutherland , 12/04/2024 02:45:00 PM, [address] [facility], [address], [place], [address], Insurance Providers Payer Name Payer Address Payer Phone Subscriber Number Group Number Insured Name Patient Relationship to Insured Coverage Start Date Coverage End Date [facility] [employer] Claims [address] [place] [address] [phone] [id number] Kale Zhong Self - patient is the insured Medical (General) History Medical History History ICD Code asthma Back,Hip,and Knee pain Diverticulosis Hypertension Reflux ( GERD) Stomach ulcer Chicken pox Transfusions Diabetes mellitus Surgical History Surgery Date(Month/Year) appendectomy kidney stones stomach surgery Hospitalization History Reason Date(Month/Year) [facility] [place] [facility] [place] [facility] [place] 03/14/[place] [facility] [place] Raoul Dop Bilateral Lower Extremity 12/05/[place] [facility] [place] Bilateral Lower Extremit y 12/17/19 [facility] [place] Left Lower Extremity 12/03 03/22 [facility] [place] Ultra Sound right leg to rule out DVT 01/23/20 [facility] [place] Right Foot, Xray Right foot, 10/31/19
--- OUTSIDE RECORDS SUMMARY | 2024-11-10 15:22 | XMS_ITS | Clinical Summary ---
Author Organization [facility] Address [address] [place] [address] Care Team Providers Care Wastewater Engineer Name Role Phone Unavailable Primary Care Provider [...] patient's age to complete this topic Insurance [facility] FFS ONE CARE
== END 2024-11-10 14:04 | disposition home or self-care (01) ==
PROVIDERS: Internal Medicine Endocrinology, Diabetes & Metabolism; PCP Family Medicine; Visit Provider Physician Assistant
DX: E11.65 Type 2 diabetes mellitus with hyperglycemia (principal); Z79.4 Long term (current) use of insulin; I16.0 Hypertensive urgency; E11.69 Type 2 diabetes mellitus with other specified complication; N52.1 Erectile dysfunction due to diseases classified elsewhere

== ENCOUNTER → 2024-11-10 13:35 | Outpatient (BNVA) | payer OTHER, SELFPAY | PROVIDERS: PCP Family Medicine; Visit Provider Internal Medicine Endocrinology, Diabetes & Metabolism | DX: E11.65 Type 2 diabetes mellitus with hyperglycemia (principal); I16.0 Hypertensive urgency; Z79.4 Long term (current) use of insulin | CPT/HCPCS: 82947; 83036; 99212 ==

== ENCOUNTER 2024-11-19 14:16 | Outpatient (AMB) | payer OTHER, SELFPAY ==
--- NOTE | 2024-11-19 14:22 | A.OFFVIS_ITS ---
Vital Signs 3 11/19/24 14:24 Height 5 ft 7 in Weight 225 lb BMI 35.2 BP 155/84 H Blood Pressure Location Rt brachial Position Sitting Respiration 16 Pulse 102 H Pulse Source Pulse Oximeter Pulse Oximetry (%) 96 Oxygen Delivery Method Room Air Intake Visit Reasons: LEFT INTRA-ARTICULAR SHOULDER INJECTION Shearer Operator Required: No Allergies milk [MILK] Allergy (Severe, Verified 11/19/24 14:25) enterocolitis clindamycin Allergy (Intermediate, Verified 11/19/24 14:25) Vomiting wheat [WHEAT] Allergy (Intermediate, Verified 11/19/24 14:25) enterocolitis amoxicillin [From AUGMENTIN] Adverse Reaction (Intermediate, Verified 11/19/24 14:25) N/V clavulanic acid [From AUGMENTIN] Adverse Reaction (Intermediate, Verified 11/19/24 14:25) N/V corn Adverse Reaction (Mild, Verified 11/19/24 14:25) Nausea and Vomiting ibuprofen [From MOTRIN] Adverse Reaction (Mild, Verified 11/19/24 14:25) ULCERS naproxen [NAPROXEN] Adverse Reaction (Mild, Verified 11/19/24 14:25) ULCERS NSAIDS (Non-Steroidal Anti-Inflamma [NSAIDS] Adverse Reaction (Mild, Verified 11/19/24 14:25) ULCERS oats Adverse Reaction (Mild, Verified 11/19/24 14:25) Abdominal Pain Medication List - Last Reconciled 11/19/24 by Smitha Williamson LPN albuterol sulfate 2.5 mg (3 mL) inhalation Q6H PRN 30 days albuterol sulfate 90 mcg/actuation 2 puffs inhalation Q6H PRN 30 days amlodipine 10 mg PO DAILY 90 days atorvastatin 20 mg PO BEDTIME blood pressure monitor Automatic, Digital. Dx: I10. Daily As directed, 999 days/lifetime blood sugar diagnostic (FreeStyle Lite Strips) As directed, to test blood sugar 4 times a day blood-glucose meter (FreeStyle Lite Meter kit) DX: E11.9, test blood sugar 2 times a day, duration 999 days blood-glucose meter,continuous (FreeStyle James 3 [place]) As directed blood-glucose sensor (FreeStyle James 3 Sensor device) Apply every 14 days As directed cane Daily As directed. 999 days crutches (pair of crutches) As directed crutches (pair of crutches) As directed diclofenac sodium 1% (Arthritis Pain (diclofenac)) 4 grams topical BID 30 days Dupixent Pen (dupilumab) 300 mg (2 mL) subcut Q2W NS sbyamqpkatk-ohhapdqmi-uqgjiyma 200-62.5-25 mcg (Trelegy Ellipta) 1 inh inhalation DAILY 0 days glipizide ER 10 mg PO DAILY glucose (Dex4 Glucose) 16 grams (4 x 4 gram) PO Q15M PRN Grab bar As directed, 999 days hydrochlorothiazide 12.5 mg PO QAM 30 days hydrocodone-acetaminophen 5-325 mg 1 tab PO BID PRN 30 days ipratropium-albuterol 0.5 mg-3 mg(2.5 mg base)/3 mL 3 mL inhalation Q6H PRN lancets (FreeStyle Lancets) As directed lancets (FreeStyle Lancets) As directed bs checks 2-3 times per day Lantus Solostar U-100 Insulin (insulin glargine) 40 units (0.4 mL) subcut QPM NS lisinopril 40 mg PO DAILY magnesium hydroxide (Milk of Magnesia) 20 mL PO DAILY magnesium oxide 500 mg PO BID methadone 40 mg PO DAILY metoprolol succinate ER 25 mg PO DAILY miscellaneous medical supply Hand-held?shower?head,?As directed, 999 days miscellaneous medical supply 2 med planners; 1 urinal; 1 bed red; 1 commode; 2 grab bars for bed miscellaneous medical supply quad cane small base miscellaneous medical supply Toilet?see?raised,?As directed, 999 days montelukast 10 mg PO BEDTIME mupirocin 2% 1 appl topical BID 7 days nebulizers As directed Novolog FlexPen U-100 Insulin (insulin aspart U-100) Inject 30 units before breakfast, 20 units before lunch and 20 units before dinner subcutaneously 3 times a day; NS omeprazole 20 mg PO DAILY ondansetron 4 mg PO Q8H PRN 30 days pen needle, diabetic (BD Lynda 2nd Gen Pen Needle) DIRECTED INJECTS 4 X/DAY pentoxifylline ER 400 mg PO TID polyethylene glycol 3350 (Miralax) 17 grams PO DAILY PRN semaglutide (Ozempic) 0.5 mg (0.736 mL) subcut QWEEK Shower Chair As directed sodium chloride 0.65% (Saline Nasal) 2 sprays intranasal Q2H PRN sodium phosphates 19-7 gram/118 mL (Fleet Enema) 118 mL TN BEDTIME PRN HPI Comments Details: Patient presents back to the office today for follow up, 2 weeks status post left intra-articular shoulder injection He reports 60% pain relief with improvement in functional mobility States he has been falling more frequently recently which is exacerbating his shoulder pain as well as other pains. He has been under the care of his primary care for the frequent falls, next follow-up is in 1 month Has been seeing [facility] for his left hip pain. Had imaging done in his awaiting next follow-up for review Prior: Patient presents back to the office today for follow up, left shoulder pain reports history of left shoulder pain, relieved with cortisone injections in the past denies recent imaging or injections states hip has been giving out and to avoid falling he has used the right arm to grab things and hold himself up this has worsened his pain has visit with SONDRA scheduled in one month for second opinion on his hip BP and HR elevated again today, he states this has been ongoing denies chest pain, headaches, syncope, weakness, dizziness, shortness of breath, peripheral edema Prior: Kale presents back to the office today for follow-up Complaining of pain to the left 2nd 3rd and 4th toes. States this has been ongoing for several months. Also reports they feel cold and he will have intermittent swelling of his bilateral lower extremities. He does take diuretics for his lower extremity edema Denies current use of anticoagulants. Denies history of DVT, PE. Prior: Kale presents back to the office today for follow up c/o left hip pain for last 2 years, has been worse over the last 8 months completed PT less than 6 months ago without improvement of his pain using a cane for ambulation pain worse with sitting and walking MRI 2022 reviewed, results as per below Previous visit: Kale is a very pleasant 53-year-old male who presented to the office today for follow-up right lower extremity pain /numbness and left hip pain. Patient previously seen by Dr. Hrenandez with diagnostic testing and most recently underwent a right saphenous nerve sprint with no improvement. He was then planned for a right femoral nerve sprint but states that he did not feel this would provide benefit of pain relief given the 1st sprint was unhelpful. He endorses pain from the right sarkar down to the foot with noticeable skin discoloration and hair loss. He does state that if he walks long distances the leg will swell. He had been evaluated by vascular and was told to wear compression socks. He has been working on weight loss to help with pain And diabetes but states it is difficult due to his limited mobility. Patient also complaining of left hip pain, he was evaluated by orthopedics in February but has yet to follow-up in their office. Prior: 52-year-old male presenting today for a follow-up of MRI results ? He reports swelling in his leg while walking. He has discoloration of the skin on his leg that started recently. He has tried using compressor stocking in the past. He has difficulty walking his dog and visiting the park with his daughter. He reports pain in his leg to the extent that his blood pressure reading starts elevating. He was recently diagnosed with diabetes mellitus. He has started gaining weight recently. He recently underwent an MRI of the lumbar spine without contrast. He no longer reports back pain. Pain is described mostly on the anterior sarkar and in the calf at the site of his previous surgery. He is not interested in any kind of spine intervention. [facility] Medical History Abnormal chest x-ray Dyslipidemia Uncontrolled type 2 diabetes mellitus with hyperglycemia, with long-term current use of insulin Chronic allergic rhinitis Diabetes Complex regional pain syndrome I Deficient knowledge of leg surgery home care Sinusitis Pre-op evaluation Methadone use GERD (gastroesophageal reflux disease) History of kidney stones Internal and external bleeding hemorrhoids Severe persistent asthma Sciatica Arthritis Anemia Hiatal hernia Dysphagia Hepatitis C COPD (chronic obstructive pulmonary disease) HTN (hypertension) History of drug abuse Cellulitis Surgical History History of common bile duct surgery History of hemorrhoidectomy Hx of endoscopy History of colonoscopy History of laparoscopy History of appendectomy Family History Father Diabetes Hypertension Mother Hypertension Social History Housing: Apartment Are you a primary hospice spiritual care coordinator to a significant other at home: No Do you presently have visiting nurse or other home services: No Alcohol intake: never Comment: cramping, relieved partially after using bathroom Patient Tobacco Use Status: Former Tobacco user Tobacco use type: Cigarette e-Cigarette/Vaping Use: Never Used Second Hand Smoke Exposure: No Substance Use Type: Opiates service: No Current occupational status: unemployed Current occupational exposures/hazards: No Cognitive needs: No Hearing needs: No Vision needs: No Review of Systems Const All systems reviewed & are unremarkable except as noted in HPI and below Physical Exam Vital Signs: Last Vital Signs Pulse 102 H 11/19/24 14:24 Resp 16 11/19/24 14:24 BP 155/84 H 11/19/24 14:24 Pulse Ox 96 11/19/24 14:24 Oxygen Delivery Method Room Air 11/19/24 14:24 BMI result Body Mass Index 35.2 General: awake, alert, oriented. Answers questions appropriately. Fully engaged in examination. Skin: warm, dry, intact HEENT: Normocephalic. Hearing intact. Cardiac: External chest normal in appearance. Respiratory: No cough, audible wheezing or stridor. Abdomen: without gross distension. MS: No obvious swelling or deformities. Neurological: Oriented to person, place, time and situation. Thought process intact. Ambulates with the use of a cane Psychiatric: Appropriate mood and affect. Good judgment and insight. Results Reviewed Results Reviewed: 05/21/2023 MRI Assessment & Plan Assessment & Plan (1) Lower extremity edema: Code(s): R60.0 - Localized edema Category: Medical (2) Pain of left lower extremity: Code(s): M79.605 - Pain in left leg Category: Medical (3) Left shoulder pain: Code(s): M25.512 - Pain in left shoulder Category: Medical Plan Kale presented to the office today for follow-up, 2 weeks status post left intra-articular shoulder injection Reports 60% pain relief with improvement in functional mobility Follow up with PCP and orthopedics as planned All questions and concerns were answered, patient agrees with the plan. Follow up when pain returns, sooner if needed Coding Level of Care Code Est Pt Level 3 (37057) Complex EM visit Add On G2211 Diagnoses Lower extremity edema R60.0 Pain of left lower extremity M79.605 Left shoulder pain M25.512
[2024-11-19 14:24] VITALS: BP 155/84; PULSE 102; RESP 16; O2SAT 96; BMI 35.2
--- OUTSIDE RECORDS SUMMARY | 2024-11-19 16:38 | XMS_ITS ---
Author Organization [facility] Address [address] [facility] [place] [address] Care Team Providers Care Resource Room Teacher Name Role Phone Good Harper MD Primary Care Provider Kiet Byrd Unavailable [phone] Allergies Allergen (clinical drug ingredient) Drug/Non Drug Allergy documented on EMR Reaction Allergy Type Onset Date Status [place], Wheat, Oats (uncoded) Unknown Allergy Active ibuprofen [...] HCl 10 MG TAKE 1 TABLET BY [facility] EVERY DAY Oral for 90 Not-Taking [...] Ordered Date Performed Result Body Sit e 25865-FWHTQYD NAIL, 1-5 09/08/2024 N/A 47171-NOIY SKIN LESIONS, 2 TO 4 09/08/2024 N/A Q9115-JPWNDCXA DYSTROPHIC NAILS ANY # 09/08/2024 N/A Encounters Encounter Location Date Provider Diagnosis [facility] [place] [address] [facility] [address] [place] [address] 09/08/2024 Kiet Nunezier Type 2 diabetes mellitus [...] days Pending Test Test Name Order Date 10125-EBOPZHM NAIL, 1-5 09/08/2024 16014-KADU SKIN LESIONS, 2 TO 4 09/08/19 25 Z4331-SBHDFFUL DYSTROPHIC NAILS ANY # Next Appt Details Follow Up: 2 Months, Reason: Provider Name:Kiet Sutherland , 12/04/2024 02:45:00 PM, [address] [facility], [address] [facility], [place], [address], Procedure Notes * Category Sub-Category Detail Notes [...] instrumentation by the physician of record - 69584, Q8 Debride Nails 1-5 Procedure: Due to [...] necessary to maintain effective symptomatic relief - 38848 Nail Reduction Nail Reduction (-27) Trimming o [...] Notes * Kale ZHONGDOB:1970 (54 yo M)Acc No.[id number]:09/08/2024 Progress Note Patient:?Kale ZHONG Provider:?Kiet Sutherland DPM :1970???Age:54 Y???Sex:Male Carl e:09/08/2024 Address: [address] [place], [place] Pcp:Good Harper MD Subjective: * Chief Complaints: [...] stones stomach surgery * Hospitalization/Major Diagno stic Procedure:?[facility] CT Scan Right Foot, Xray Right foot, [...] Management (4)??? Plan: * Treatment: 2.?Tinea unguium?Procedure: 13657-FWVTISL NAIL, 1-5 3.?Xerosis of skin? Start Ammonium [...] necessary to maintain effective symptomatic relief - 27186.?Keratoma Treatment:?Parring or Cutting of Benign Hyperkeratotic Lesion(s)?(-56) [...] instrumentation by the physician of record - 41872, Q8.?Nail Reduction:?Nail Reduction?(-27) Trimming of all dystrophic [...] T6, T7, T8?), [facility] to reduce/remove overall nail length and girth, by manual and electrical means with use of a nail nipper and/or dremel, to more viable healthy nail plate or bed tissue - G0127, Q8.? * Procedure Codes:?G0127 LUISA ING DYSTROPHIC NAILS ANY #, Modifiers: XS , [id number] DEBRIDE NAIL, 1-5, Modifiers: XS 16171 TRIM SKIN LESIONS, 2 TO 4, Modifiers: [...] Sutherland DPM Date:?2024 Generated for Spike don/Trinity/Donnie on:?11/19/2024 04:38 PM EDT History and Physical Notes * [...]
--- OUTSIDE RECORDS SUMMARY | 2024-11-19 16:38 | XMS_ITS | Clinical Summary ---
Author Organization [facility] Address [address] [place] [address] Care Team Providers Care Electrical Designer Drafter Name Role Phone Marylu Estrada MD Primary Care Provider [phone] Surgical History Surgery Date Site/Laterality Comments APPENDECTOMY 2010 PROCEDURE: HISTORICAL APPENDECTOMY KIDNEY STONE SURGERY 2010 PROCEDURE: IA NEPHROLITHOTOMY REMOVAL CALCULUS HEMORRHOID SURGERY 2010 PROCEDURE: DESTRUCTION OF HEMORRHOIDS COLONOSCOPY 08/14/12 [facility] PROCEDURE: HISTORICAL COLONOSCOPY; COMMENT: hemorrhoids; repeat under propofol in ten yrs ESOPHAGOGASTRODUODENOSCOPY 08/14/12 [facility] PROCEDURE: IA ESOPHAGOGASTRODUODENOSCOPY TRANSORAL DIAGNOSTIC; COMMENT: Hiatus hernia Medical History Medical History Date Comments Asthma DX:Asthma; COMME NT: Frequent hospitalizations GI bleed DX:GI bleed; COM MENT: 99 - 4 untis - NSAID Abdominal pain DX:Abdominal christen n Opiate dependence ([facility]) 03/28/2012 DX:O piate dependence ([facility]) Boxer's fracture DX:Boxer's frac ture [...] age to complete this topic Care Teams Electrical Designer Drafter Relationship Specialty Start Date End Date Marylu Estrada MD [address] [place] [address] PCP - General Internal Medicine 10/01/12
--- OUTSIDE RECORDS SUMMARY | 2024-11-19 16:38 | XMS_ITS | Patient Health Record ---
Author Organization [facility] Address [address] [facility] [address] Care Team Providers Care Automobile Contract Clerk Name Role Phone Good Harper MD Primary Care Provider Kiet Byrd Unavailable [phone] Allergies Allergen (clinical drug ingredient) Drug/Non Drug Allergy documented on EMR Reaction Allergy Type Onset Date Status [place], Wheat, Oats (uncoded) Unknown Allergy Active ibuprofen [...] Problem Acquired hammer toe of right foot (1893110045360 105) Other hammer toe(s) (acquired), right foot (M20.41) Active confirmed Problem Acquired hammer toe of left foot (3840977881005 103) Other hammer toe(s) (acquired), left foot (M20.42) Active confirmed Problem Type 2 diabetes mellitus with peripheral angiopathy (537310263) Type 2 diabetes mellitus with diabetic peripheral angiopathy without gangrene (E11.51) Active confirmed Q7(A), Q8(2B), Q9(1B,2C) Vital Signs Blood pressure diastolic 58 mm Hg 09/08/2024 Height 5ft 7in in 09/08/2024 Blood pressure systolic 140 mm Hg 09/08/2024 Weight 230 lbs 09/08/2024 BMI 36.02 kg/m2 09/08/2024 Procedures Procedure Date Ordered Date Performed Result Body Sit e 17949-SBICTYM NAIL, 1-5 06/02/2024 N/A 05467-BIID SKIN LESIONS, 2 TO 4 06/02/2024 N/A S2284-MWQOYUNE DYSTROPHIC NAILS ANY # 06/02/2024 N/A 26918-RVPQAYZ NAIL, 1-5 09/08/2024 N/A 89290-JWOD SKIN LESIONS, 2 TO 4 09/08/2024 N/A U4291-EVEVIRPL DYSTROPHIC NAILS ANY # 09/08/2024 N/A Encounters Encounter Location Date Provider [facility] [address] 06/02/2024 Kiet Zuletaunier Type 2 diabetes mellitus with diabetic peripheral angiopathy without gangrene E11.51 ; Tinea unguium B35.1 ; Pain in right toe(s) M79.674 ; Pain in left toe(s) M79.675 ; Other hammer toe(s) (acquired), right foot M20.41 and Other hammer toe(s) (acquired), left foot M20.42 [facility] [address] 09/08/2024 Kiet Sutherland Type 2 diabetes mellitus with diabetic peripheral angiopathy without gangrene E11.51 ; Tinea unguium B35.1 ; Pain in right toe(s) M79.674 ; Pain in left toe(s) M79.675 and Xerosis of skin L85.[address] [facility] [address] 05/09/2024 Kietbrandi Sutherland [facility] [address] 08/20/2024 Kietbrandi Sutherland [facility] [address] 10/24/2024 Kiet Sutherland [facility] Encounter Date Diagnosis (ICD Code) Assessment Notes [...] Treatment Pending Test Test Name Order Date 49028-VCMFOXE NAIL, 1-5 06/02/2024 59368-PKUWIYM NAIL, 1-5 09/08/2024 10824-NAWS SKIN LESIONS, 2 TO 4 09/08/19 25 89168-OAMV SKIN LESIONS, 2 TO 4 06/02/20 24 K4888-SLTEQWYZ DYSTROPHIC NAILS ANY # U7405-MJYKCJRP DYSTROPHIC NAILS ANY # 91267,L3186-BIH TENDON SHEATH/LIGAMENT 0 03/18/202006694,S9664-YJD TENDON SHEATH/LIGAMENT 0 04/15/202025320,K6204-KXQ TENDON SHEATH/LIGAMENT 0 04/19/2020 Next Appt Details Provider Name:Kiet Sutherland , 12/04/2024 02:45:00 PM, [address] [facility], [address], [place], [address], Insurance Providers Payer Name Payer Address Payer Phone Subscriber Number Group Number Insured Name Patient Relationship to Insured Coverage Start Date Coverage End Date [facility] [employer] Claims [address] [place] [id number] [phone] [id number] Kale Zhong Self - patient is the insured Medical (General) History Medical History History ICD Code asthma Back,Hip,and Knee pain Diverticulosis Hypertension Reflux ( GERD) Stomach ulcer Chicken pox Transfusions Diabetes mellitus Surgical History Surgery Date(Month/Year) appendectomy kidney stones stomach surgery Hospitalization History Reason Date(Month/Year) [facility] 04/23/20 [facility] can't walk 04/13/20 [facility] Foot swelling 03/14/20 [facility] Ultra Sound Raoul Dop Bilateral Lower Extremity 12/05/19 [facility] Ultra Sound Bilateral Lower Extremit y 12/17/19 [facility] Ultra Sound Left Lower Extremity 12/03 03/22 [facility] Venous Ultra Sound right leg to rule out DVT 01/23/20 [facility] Scan Right Foot, Xray Right foot, 10/31/19
--- OUTSIDE RECORDS SUMMARY | 2024-11-19 16:38 | XMS_ITS | Clinical Summary ---
Author Organization [facility] Address [address] [place] [address] Care Team Providers Care Healthcare Customer Service Name Role Phone Unavailable Primary Care Provider [...] age to complete this topic Insurance [facility] [employer]
--- OUTSIDE RECORDS SUMMARY | 2024-11-19 16:38 | XMS_ITS ---
Author Organization [facility] Address [address] [place] [address] Care Team Providers Care Pillar Worker Name Role Phone Good Harper MD Primary Care Provider Kiet Byrd Unavailable [phone] REASON FOR VISIT diab shoes Encounters Encounter Location Date Provider Diagnosis [facility] [address] [place] [address] 10/24/2024 Kiet Sutherland Plan Of Treatment Next Appt Details Provider Name:Kiet Sutherland , 12/04/2024 02:45:00 PM, [address] [facility], [place] [address], [place], [address], Progress Notes * Kale ZHONGDOB:1970 (54 yo M)Acc No.[id number]:10/24/2024 Patient:?Kale ZHONG :1970???Age:54 Y???Sex:Male Address:[address] [place], [address] * true * Date:? Generated for Printi ng/Faxing/eTransmitting on:?11/19/2024 04:38 PM EDT
--- OUTSIDE RECORDS SUMMARY | 2024-11-19 16:38 | XMS_ITS | Encounter Summary ---
Author Organization [facility] Address [address] [place] [address] Care Team Providers Care Lan/Wan Engineer Name Role Phone Unavailable Primary Care Provider Unavailabl e Reason for Visit * Reason Comments Throat Problem Encounter Details Date Type Department Care Team ([facility] st Contact Info) Description 11/15/2016 Tele[address] [facility] [address] [address] Leah Bonner NP Throat Problem Social History [...] desk rapid strep will be removed from [facility] by the [facility] support team. He is placinga ticket as I accidentally resulted the rapid throat test under the wrong patient account. documented in this encounter Plan of Treatment Not on file documented as of this encounter Visit Diagnoses Not on filedocumented in this encounter
--- OUTSIDE RECORDS SUMMARY | 2024-11-19 16:39 | XMS_ITS ---
Author Organization [facility] Address [address] [place] [address] Care Team Providers Care Rn Critical Care Name Role Phone Good Harper MD Primary Care Provider Kiet Byrd Unavailable [phone] REASON FOR VISIT diab shoes Encounters Encounter Location Date Provider Diagnosis [facility] [address] [place] [address] 08/20/2024 Kiet Sutherland Plan Of Treatment Next Appt Details Provider Name:Kiet Sutherland , 12/04/2024 02:45:00 PM, [address] [facility] [place] [address], [place], [address], Progress Notes * Kale ZHONGDOB:1970 (54 yo M)Acc No.[id number]:08/20/2024 Patient:?Kale ZHONG :1970???Age:54 Y???Sex:Male Address:[address] [place] [place], [address] * true * Date:? Generated for Printi ng/Faxing/eTransmitting on:?11/19/2024 04:38 PM EDT
== END 2024-11-19 14:36 | disposition home or self-care (01) ==
LOC: HO.PMC 14:17
PROVIDERS: PCP Family Medicine; Visit Provider Registered Nurse Emergency
DX: R60.0 Localized edema (principal); M79.605 Pain in left leg; M25.512 Pain in left shoulder
CPT/HCPCS: 99213; G2211

== ENCOUNTER → 2024-11-19 14:16 | Outpatient (BNVA) | payer OTHER, SELFPAY | PROVIDERS: PCP Family Medicine; Visit Provider Registered Nurse Emergency | DX: M79.605 Pain in left leg (principal); M25.512 Pain in left shoulder; R60.0 Localized edema | CPT/HCPCS: 99212 ==

== ENCOUNTER 2024-11-25 14:59 | Outpatient (AMB) | payer OTHER, SELFPAY ==
--- NOTE | 2024-11-25 15:28 | MHC.OFFVIS ---
Vital Signs 11/25/24 15:29 Height 5 ft 7 in Weight 225 lb 15.581 oz BMI 35.4 BP 140/78 H Blood Pressure Location Lt brachial Position Sitting Pulse 105 H Pulse Source Pulse Oximeter Pulse Oximetry (%) 96 Oxygen Delivery Method Room Air Intake Visit Reasons: asthma Allergies milk [MILK] Allergy (Severe, Verified 11/25/24 15:33) enterocolitis clindamycin Allergy (Intermediate, Verified 11/25/24 15:33) Vomiting wheat [WHEAT] Allergy (Intermediate, Verified 11/25/24 15:33) enterocolitis amoxicillin [From AUGMENTIN] Adverse Reaction (Intermediate, Verified 11/25/24 15:33) N/V clavulanic acid [From AUGMENTIN] Adverse Reaction (Intermediate, Verified 11/25/24 15:33) N/V corn Adverse Reaction (Mild, Verified 11/25/24 15:33) Nausea and Vomiting ibuprofen [From MOTRIN] Adverse Reaction (Mild, Verified 11/25/24 15:33) ULCERS naproxen [NAPROXEN] Adverse Reaction (Mild, Verified 11/25/24 15:33) ULCERS NSAIDS (Non-Steroidal Anti-Inflamma [NSAIDS] Adverse Reaction (Mild, Verified 11/25/24 15:33) ULCERS oats Adverse Reaction (Mild, Verified 11/25/24 15:33) Abdominal Pain HPI Comments Details: The patient is a 54-year-old gentleman with severe persistent asthma. He he has had previous intubations in the past for status asthmaticus. More recently he has had multiple bouts of prednisone tapers for his significant persistent symptoms. The patient has been using his current respiratory medications with very good adherence. However, still requiring short-acting beta agonists several times a day. He also uses nebulizer. At this point the patient is failing outpatient therapy with uncontrolled asthma. Has significant wheezing on examination. Also has significant allergies. A previous blood work is IgE levels had been noted to be elevated and also had some degree of eosinophilia. More recently he was evaluated by Allergy. He will be following up with them soon. Therefore, we will continue awaiting their recommendations. He also had pulmonary function studies demonstrating severe obstruction consistent with severe uncontrolled asthma. We did evaluate his blood work demonstrating the elevations in his eosinophils. The patient also has elevations in his eosinophils. Based on these findings and is positive allergy testing the patient is a great candidate for biologic therapy with Dupixent. 11/04/2020 the patient is here for a preoperative evaluation. Overall the patient has been doing very good from a respiratory status. He has been off all prednisone. Patient is continue with Dupixent every 2 weeks. He is continue with respiratory therapy as prescribed with good adherence. He has not required his nebulized therapy. He has been having issues with his hemorrhoids and will undergo surgery tomorrow. However due to his respiratory condition a preop was requested. The patient has been feeling well. He does have some cough but is nonproductive intubated in nature. He has been able to walk and go up a lot of stairs without any difficulty. In the office he did to spirometry with an FEV1 to FVC of 61% and FEV1 of 56% predicted. This is consistent with moderate COPD. Overall lot better for him. At this point the patient is medically optimized from a respiratory status. In regards to a surgical standpoint due to his respiratory issues he would benefit from avoiding general anesthesia to minimize bronchospasms and difficulty with per status if possible. Either LMA or spinal would be appropriate. However, if the alternatives are not available I do believe that based on his current respiratory status and is optimize state the patient is able to tolerate general anesthesia. Due to his moderate obstruction the patient does have increased perioperative pulmonary complications which include, atelectasis, hypoxia prolonged mechanical ventilation and also pneumonia. Again, patient is medically optimized and may able to pursue with surgery and anesthesia. 10/05/2023 the patient has a pulmonary visit today. Overall he is doing better from a respiratory status. He continues to Dupixent every 2 weeks with very good response. He does continue to use his maintenance therapy which includes Singulair and Combivent. The patient has not required any prednisone. He does have some dyspnea on exertion mild in severity. Also has an intermittent cough. That typically is nonproductive in nature. Otherwise he is without any other respiratory complaints. 05/15/2024 the patient is here for a pulmonary follow-up visit. He is having hard time sinusitis. Was evaluated several weeks ago because the sinusitis and is still not better. He has a hard time breathing through his nose. He has noticed some increased bloody drainage primarily from the right nares. He is getting some irritation and headaches. Sinus pressure is uncomfortable moderate severity. He is concerned that the symptoms are going to continue dripping down affecting his asthma. The patient will go ahead and get x-rays at this time for his sinuses. He already has some wheezing on examination. Therefore will go ahead and start him on some prednisone and will start him on Afrin for 5 days. The patient does have a blood pressure therefore the he can not use Sudafed. Will put him on Levaquin. If the patient is doing better he will call. At that point will go ahead and refer him to ENT and also request a CT scan of the sinuses. He will continue with Dupixent injection at this time. He will continue with his respiratory therapy as prescribed. The patient follow-up in 3-4 weeks. 08/20/2024 the patient is here for a pulmonary follow-up visit. He is very aggravated today as he has had a bad interaction with another individual and caused him to have significant stress and anger. Therefore when he came in his blood pressure is significantly elevated. I did check her myself in the left arm his blood pressure was 210 over 110 and his right arm 195/110. We did recommend patient go to the ER because this could be potentially life-threatening can end up with a heart attack or stroke but he is reluctant that he does not want to go anywhere that he wants to be by himself. He understands the severity of not getting this blood pressure taking care of and the concerns and potential outcomes from having this elevated blood pressure for too long. In the meantime his x-ray was also done of the chest. He still has some slight opacity to the left lower lung where he was treated for pneumonia. He has another day of antibiotics. I will give another course but also will request a CT scan this point because the CT scan will be able to address better those changes that we see on the x-ray specially since they are persistent have not improved since his previous x-ray. He will continue with current respiratory therapy will follow-up in 23 months. Feels any issues prior to that he will call for an earlier assessment. 11/25/2024 the patient is here for pulmonary follow-up visit. He has multiple complaints including his musculoskeletal issues of his leg and his hip and his back. This does bother her in in prevents him from having a good quality of life. Breathing brown he is doing okay. He does use his respiratory medications as prescribed and he has continued with the biologic therapy with good response. He still does have dyspnea on exertion and does has a productive cough. [id number] severity. Because of his ongoing respiratory issues we had requested a CT scan of the chest. It demonstrated that he does have an area of atelectasis in the lingula with what appears to be plugging of a airway. Most likely mucus although can not rule out endobronchial disease. Therefore, we did talk about considering a bronchoscopy. The patient was agreeable to this and therefore will go ahead and request a diagnostic bronchoscopy see if there is anything else does potentially blocking that airway. And while were there we can do some therapeutic cleaning of the airways to remove any mucus plugs that may be affecting his pulmonary capacity. FOR[facility]LY [facility], [facility] Medical History (Updated 11/25/24 @ 23:58 by Shadi Dover MD) Atelectasis of left lung Abnormal chest x-ray Dyslipidemia Uncontrolled type 2 diabetes mellitus with hyperglycemia, with long-term current use of insulin Chronic allergic rhinitis Diabetes Complex regional pain syndrome I Deficient knowledge of leg surgery home care Sinusitis Pre-op evaluation Methadone use GERD (gastroesophageal reflux disease) History of kidney stones Internal and external bleeding hemorrhoids Severe persistent asthma Sciatica Arthritis Anemia Hiatal hernia Dysphagia Hepatitis C COPD (chronic obstructive pulmonary disease) HTN (hypertension) History of drug abuse Cellulitis Surgical History History of common bile duct surgery History of hemorrhoidectomy Hx of endoscopy History of colonoscopy History of laparoscopy History of appendectomy Family History Father Diabetes Hypertension Mother Hypertension Social History Housing: Apartment Are you a primary career specialist to a significant other at home: No Do you presently have visiting nurse or other home services: No Alcohol intake: never Comment: cramping, relieved partially after using bathroom Patient Tobacco Use Status: Former Tobacco user Tobacco use type: Cigarette e-Cigarette/Vaping Use: Never Used Second Hand Smoke Exposure: No Substance Use Type: Opiates service: No Current occupational status: unemployed Current occupational exposures/hazards: No Cognitive needs: No Hearing needs: No Vision needs: No Review of Systems Const Denies chills, Denies fever(s) and Denies headache(s) ENT Denies headache(s), Reports epistaxis, Reports nasal congestion, Reports nasal discharge, Reports nasal obstruction, Reports post nasal drip, Reports sinus pain and Reports sinus pressure Card Denies chest pain Resp Denies change in phlegm color, Reports cough and Reports wheezing GI Denies change in bowel habits and Reports constipation Denies hematuria and Denies difficulty urinating Musc Reports abnormal gait, Denies back pain, Reports arthralgias, Reports joint swelling and Reports limited range of motion Neuro Reports abnormal gait, Denies headache(s), Denies focal weakness and Denies convulsions Psych Denies depression, Reports irritability (upset) and Denies mood swings Irving/Lymph Denies lymphadenopathy Aller/Immun Reports wheezing Physical Exam Vital Signs: Last Vital Signs Pulse 105 H 11/25/24 15:29 BP 140/78 H 11/25/24 15:29 Pulse Ox 96 11/25/24 15:29 Oxygen Delivery Method Room Air 11/25/24 15:29 BMI result Body Mass Index 35.4 Const General: alert HEENT Head: Yes other (has a mask) Neck Neck: Yes normal visual inspection, Yes full ROM and Yes no lymphadenopathy Chest Chest palpation & inspection: normal inspection of the chest Resp Effort & Inspection: normal respiratory effort Auscultation: diminished lung sounds Cardio Rate: tachycardic Rhythm: regular rhythm Heart sounds: S1 normal heart sound present and S2 normal heart sound present GI Palpation (GI): Soft to palpation and nontender Auscultation: normal bowel sounds Assessment & Plan Assessment & Plan (1) Abnormal chest x-ray: Code(s): R93.89 - Abnormal findings on diagnostic imaging of other specified body structures Category: Medical (2) Asthma: Code(s): J45.909 - Unspecified asthma, uncomplicated Category: Medical Qualifiers: Asthma complication type: uncomplicated Asthma persistence: persistent Asthma severity: severe Qualified Code(s): J45.50 - Severe persistent asthma, uncomplicated (3) GERD (gastroesophageal reflux disease): Code(s): K21.9 - Gastro-esophageal reflux disease without esophagitis Category: Medical Qualifiers: Esophagitis presence: without esophagitis Qualified Code(s): K21.9 - Gastro-esophageal reflux disease without esophagitis (4) Chronic allergic rhinitis: Code(s): J30.9 - Allergic rhinitis, unspecified Category: Medical (5) Atelectasis of left lung: Code(s): J98.11 - Atelectasis Category: Medical Plan Plan for bronchoscopy to assess plugged airway, r/o endobronchial disease continue Dupixent 300mg t3ezbrp Continue allergy therapy: singulair and zyrtec continue Duonebs as needed continue Advair HFA 230/21 2 puff BID reflux diet allergy therapy f/U 2-3 months Coding Level of Care Code Est Pt Level 5 (92415) Complex EM visit Add On G2211 Diagnoses Abnormal chest x-ray R93.89 Severe persistent asthma without complication J45.50 Asthma complication type: uncomplicated Asthma persistence: persistent Asthma severity: severe Gastroesophageal reflux disease without esophagitis K21.9 Esophagitis presence: without esophagitis Chronic allergic rhinitis J30.9 Atelectasis of left lung J98.11 Time Spent (min) 40
[2024-11-25 15:29] VITALS: BP 140/78; PULSE 105; O2SAT 96; BMI 35.4
--- OUTSIDE RECORDS SUMMARY | 2024-11-25 18:44 | XMS_ITS ---
Author Organization [facility] Address [address] [place] [address] Care Team Providers Care Hospital Education Coordinator Name Role Phone Good Harper MD Primary Care Provider Kiet Byrd Unavailable [phone] REASON FOR VISIT diab shoes Encounters Encounter Location Date Provider Diagnosis [facility] [address] [place] [address] 08/20/2024 Kiet Sutherland Plan Of Treatment Next Appt Details Provider Name:Kiet Sutherland , 12/04/2024 02:45:00 PM, [address] [facility], [address] [place] [address], [place], [address], Progress Notes * Kale ZHONGDOB:1970 (54 yo M)Acc No.[id number]:08/20/2024 Patient:?Kale ZHONG :1970???Age:54 Y???Sex:Male Address:[address] [place] [place], [address] * true * Date:? Generated for Printi ng/Faxing/eTransmitting on:?11/25/2024 06:44 PM EDT
--- OUTSIDE RECORDS SUMMARY | 2024-11-25 18:44 | XMS_ITS ---
Author Organization [facility] Address [address] [place] [address] Care Team Providers Care Marker Shipments Name Role Phone Good Harper MD Primary Care Provider Kiet Byrd Unavailable [phone] REASON FOR VISIT diab shoes Encounters Encounter Location Date Provider Diagnosis [facility] [address] [place] [address] 10/24/2024 Kiet Sutherland Plan Of Treatment Next Appt Details Provider Name:Kiet Sutherland , 12/04/2024 02:45:00 PM, [address] [facility], [address] [address], [place], [address], Progress Notes * Kale ZHONGDOB:1970 (54 yo M)Acc No.[id number]:10/24/2024 Patient:?Kale ZHONG :1970???Age:54 Y???Sex:Male Address:[address] [place], [address] * true * Date:? Generated for Printi ng/Faxing/eTransmitting on:?11/25/2024 06:44 PM EDT
--- OUTSIDE RECORDS SUMMARY | 2024-11-25 18:44 | XMS_ITS | Clinical Summary ---
Author Organization [facility] Address [address] [place] [address] Care Team Providers Care Scheduling Assistant Name Role Phone Unavailable Primary Care Provider [...] age to complete this topic Insurance [facility] FFS ONE C[employer]
--- OUTSIDE RECORDS SUMMARY | 2024-11-25 18:44 | XMS_ITS | Patient Health Record ---
Author [facility] Address [address] [facility], [place] [address] Care Team Providers Care Mat Sewer Name Role Phone Good Harper MD Primary Care Provider Kiet Byrd Unavailable [phone] Allergies Allergen (clinical drug ingredient) Drug/Non Drug Allergy documented on EMR Reaction Allergy Type Onset Date Status [place], Wheat, Oats (uncoded) Unknown Allergy Active ibuprofen [...] Problem Acquired hammer toe of right foot (6528696045799 105) Other hammer toe(s) (acquired), right foot (M20.41) Active confirmed Problem Acquired hammer toe of left foot (4574503769707 103) Other hammer toe(s) (acquired), left foot (M20.42) Active confirmed Problem Type 2 diabetes mellitus with peripheral angiopathy (610466050) Type 2 diabetes mellitus with diabetic peripheral angiopathy without gangrene (E11.51) Active confirmed Q7(A), Q8(2B), Q9(1B,2C) Vital Signs Blood pressure diastolic 58 mm Hg 09/08/2024 Height 5ft 7in in 09/08/2024 Blood pressure systolic 140 mm Hg 09/08/2024 Weight 230 lbs 09/08/2024 BMI 36.02 kg/m2 09/08/2024 Procedures Procedure Date Ordered Date Performed Result Body Sit e 73008-XEVVIHJ NAIL, 1-5 06/02/2024 N/A 71056-DFYF SKIN LESIONS, 2 TO 4 06/02/2024 N/A B1000-IQHCMDGS DYSTROPHIC NAILS ANY # 06/02/2024 N/A 93811-XJINHEE NAIL, 1-5 09/08/2024 N/A 19472-YKNN SKIN LESIONS, 2 TO 4 09/08/2024 N/A U6335-GOMHRKDB DYSTROPHIC NAILS ANY # 09/08/2024 N/A Encounters Encounter Location Date [facility] [address] 06/02/2024 Kiet Zuletaunier Type 2 diabetes mellitus with diabetic peripheral angiopathy without gangrene E11.51 ; Tinea unguium B35.1 ; Pain in right toe(s) M79.674 ; Pain in left toe(s) M79.675 ; Other hammer toe(s) (acquired), right foot M20.41 and Other hammer toe(s) (acquired), left foot M20.42 [facility] [address] 09/08/2024 Kiet Sutherland Type 2 diabetes mellitus with diabetic peripheral angiopathy without gangrene E11.51 ; Tinea unguium B35.1 ; Pain in right toe(s) M79.674 ; Pain in left toe(s) M79.675 and Xerosis of skin L85.[address] [facility] [address] 05/09/2024 Kietbrandi Sutherland [facility] [address] 08/20/2024 Kietbrandi Sutherland [facility] [address] 10/24/2024 Kiet Sutherland [facility] Encounter Date Diagnosis (ICD Code) Assessment [...] Treatment Pending Test Test Name Order Date 09285-YZUFLXM NAIL, 1-5 06/02/2024 78316-QQYXMZO NAIL, 1-5 09/08/2024 90605-GNYG SKIN LESIONS, 2 TO 4 09/08/19 25 78255-JKZT SKIN LESIONS, 2 TO 4 06/02/20 24 P0546-BHNJZPTC DYSTROPHIC NAILS ANY # H5427-CWAHTDVV DYSTROPHIC NAILS ANY # 32028,T4006-YWF TENDON SHEATH/LIGAMENT 0 03/18/202067931,A4748-OTT TENDON SHEATH/LIGAMENT 0 04/15/202003733,P7869-JDP TENDON SHEATH/LIGAMENT 0 04/19/2020 Next Appt Details Provider Name:Kiet Sutherland , 12/04/2024 02:45:00 PM, [address] [facility], [address], [place], [address], Insurance Providers Payer Name Payer Address Payer Phone Subscriber Number Group Number Insured Name Patient Relationship to Insured Coverage Start Date Coverage End Date [facility] [employer] Claims [address] [place] [id number] [phone] [id number] Kale Zhong Self - patient is the insured Medical (General) History Medical History History ICD Code asthma Back,Hip,and Knee pain Diverticulosis Hypertension Reflux ( GERD) Stomach ulcer Chicken pox Transfusions Diabetes mellitus Surgical History Surgery Date(Month/Year) appendectomy kidney stones stomach surgery Hospitalization History Reason Date(Month/Year) [facility] 04/23/20 [facility] ER can't walk 04/13/20 [facility] ER Foot swelling 03/14/20 [facility] Ultra Sound Raoul Dop Bilateral Lower Extremity 12/05/19 [facility] Ultra Sound Bilateral Lower Extremit y 12/17/19 [facility] Ultra Sound Left Lower Extremity 12/03 03/22 [facility] Venous Ultra Sound right leg to rule out DVT 01/23/20 [facility] CT Scan Right Foot, Xray Right foot, 10/31/19
--- OUTSIDE RECORDS SUMMARY | 2024-11-25 18:44 | XMS_ITS | Encounter Summary ---
Author Organization [facility] Address [address] [place] [address] Care Team Providers Care Can Maker Name Role Phone Unavailable Primary Care Provider Unavailabl e Reason for Visit * Reason Comments Throat Problem Encounter Details Date Type Department Care Team ([facility] st Contact Info) Description 11/15/2016 [address] [facility] [address] [address] Leah Bonner NP Throat Problem Social History [...] desk rapid strep will be removed from [facility] by the [facility] support team. He is placinga ticket as I accidentally resulted the rapid throat test under the wrong patient account. documented in this encounter Plan of Treatment Not on file documented as of this encounter Visit Diagnoses Not on filedocumented in this encounter
--- OUTSIDE RECORDS SUMMARY | 2024-11-25 18:44 | XMS_ITS ---
Author [facility] Address [address] [place] [address] Care Team Providers Care Director Sales Support Name Role Phone Good Harper MD Primary Care Provider Kiet Byrd Unavailable [phone] Allergies Allergen (clinical drug ingredient) Drug/Non Drug Allergy documented on EMR Reaction Allergy Type Onset Date Status [place], Wheat, Oats (uncoded) Unknown Allergy Active ibuprofen [...] HCl 10 MG TAKE 1 TABLET BY [facility] EVERY DAY Oral for 90 Not-Taking Lisinopril [...] Ordered Date Performed Result Body Sit e 13022-NJIVVYP NAIL, 1-5 09/08/2024 N/A 97144-REFG SKIN LESIONS, 2 TO 4 09/08/2024 N/A G4665-JKQHJHPB DYSTROPHIC NAILS ANY # 09/08/2024 N/A Encounters Encounter Location Date Provider Diagnosis [facility] [address] [facility] [address] [place] [address] 09/08/2024 Kiet Nunezier Type 2 diabetes mellitus [...] days Pending Test Test Name Order Date 15324-UCWFPRL NAIL, 1-5 09/08/2024 17325-QFNG SKIN LESIONS, 2 TO 4 09/08/19 25 N3477-IXLJQOVP DYSTROPHIC NAILS ANY # Next Appt Details Follow Up: 2 Months, Reason: Provider Name:Kiet Sutherland , 12/04/2024 02:45:00 PM, [address] [facility], [address] [facility], [place], [address], Procedure Notes * Category Sub-Category Detail Notes [...] instrumentation by the physician of record - 74589, Q8 Debride Nails 1-5 Procedure: Due to [...] necessary to maintain effective symptomatic relief - 73030 Nail Reduction Nail Reduction (-27) Trimming o [...] Notes * Kale ZHONGDOB:1970 (54 yo M)Acc No.[id number]:09/08/2024 Progress Note Patient:?Kale ZHONG Provider:?Kiet Sutherland DPM :1970???Age:54 Y???Sex:Male Carl e:09/08/2024 Address: [address] [place], [place] Pcp:Good Harper MD Subjective: * Chief Complaints: [...] stones stomach surgery * Hospitalization/Major Diagno stic Procedure:?[facility] CT Scan Right Foot, Xray Right foot, [...] Management (4)??? Plan: * Treatment: 2.?Tinea unguium?Procedure: 60194-KRTFHHV NAIL, 1-5 3.?Xerosis of skin? Start Ammonium [...] necessary to maintain effective symptomatic relief - 60054.?Keratoma Treatment:?Parring or Cutting of Benign Hyperkeratotic Lesion(s)?(-56) [...] instrumentation by the physician of record - 91303, Q8.?Nail Reduction:?Nail Reduction?(-27) Trimming of all dystrophic [...] T6, T7, T8?), [facility] to reduce/remove overall nail length and girth, by manual and electrical means with use of a nail nipper and/or dremel, to more viable healthy nail plate or bed tissue - G0127, Q8.? * Procedure Codes:?G0127 LUISA ING DYSTROPHIC NAILS ANY #, Modifiers: XS , [id number] DEBRIDE NAIL, 1-5, Modifiers: XS 48856 TRIM SKIN LESIONS, 2 TO 4, Modifiers: [...] Sutherland DPM Date:?2024 Generated for Spike don/Trinity/Donnie on:?11/25/2024 06:44 PM EDT History and Physical Notes * [...]
--- OUTSIDE RECORDS SUMMARY | 2024-11-25 18:44 | XMS_ITS | Clinical Summary ---
Author Organization [facility] Address [address] [place] [address] Care Team Providers Care Narcotics Detective Name Role Phone Marylu Estrada MD Primary Care Provider [phone] Surgical History Surgery Date Site/Laterality Comments APPENDECTOMY 2010 PROCEDURE: HISTORICAL APPENDECTOMY KIDNEY STONE SURGERY 2010 PROCEDURE: NM NEPHROLITHOTOMY REMOVAL CALCULUS HEMORRHOID SURGERY 2010 PROCEDURE: DESTRUCTION OF HEMORRHOIDS COLONOSCOPY 08/14/12 [facility] PROCEDURE: HISTORICAL COLONOSCOPY; COMMENT: hemorrhoids; repeat under propofol in ten yrs ESOPHAGOGASTRODUODENOSCOPY 08/14/12 [facility] PROCEDURE: NM ESOPHAGOGASTRODUODENOSCOPY TRANSORAL DIAGNOSTIC; COMMENT: Hiatus hernia Medical History Medical History Date Comments Asthma DX:Asthma; COMME NT: Frequent hospitalizations GI bleed DX:GI bleed; COM MENT: 99 - 4 untis - NSAID Abdominal pain DX:Abdominal christen n Opiate dependence ([facility]) 03/28/2012 DX:O piate dependence ([facility]) Boxer's fracture DX:Boxer's frac ture Nephrolithiasis DX:Nephrolithias [...] age to complete this topic Care Teams Narcotics Detective Relationship Specialty Start Date End Date Marylu Estrada MD [address] [place] [address] PCP - General Internal Medicine 10/01/12
== END 2024-11-25 15:52 | disposition home or self-care (01) ==
LOC: HO.HPS 15:00
PROVIDERS: PCP Family Medicine; Visit Provider Hospitalist
DX: J45.50 Severe persistent asthma, uncomplicated (principal); J98.11 Atelectasis; R93.89 Abnormal findings on diagnostic imaging of other specified body structures; K21.9 Gastro-esophageal reflux disease without esophagitis
CPT/HCPCS: 99215; G2211

== ENCOUNTER → 2024-11-25 14:59 | Outpatient (BNVA) | payer OTHER, SELFPAY | PROVIDERS: PCP Family Medicine; Visit Provider Hospitalist | DX: J45.50 Severe persistent asthma, uncomplicated (principal); J30.9 Allergic rhinitis, unspecified; J98.11 Atelectasis; R93.89 Abnormal findings on diagnostic imaging of other specified body structures; K21.9 Gastro-esophageal reflux disease without esophagitis | CPT/HCPCS: 99212 ==

== ENCOUNTER 2024-12-19 11:17 | Outpatient (AMB) | payer OTHER, SELFPAY ==
--- NOTE | 2024-12-19 11:33 | A.OFFPC_ITS ---
Vital Signs 12/19/24 11:42 12/19/24 11:46 Height 5 ft 7 in Weight 228 lb 6 oz BMI 35.8 BP 170/96 H 170/90 H Blood Pressure Location Rt brachial Rt brachial Position Sitting Sitting Respiration 16 Pulse 105 H Pulse Source Pulse Oximeter Temp 98.2 F Temp Source Oral Pulse Oximetry (%) 98 Oxygen Delivery Method Room Air Intake Visit Reasons: 3months F/U appt Intake Note: 3month follow up for htn and hip pain patient has been falling frequently Cotton Expert Required: No Allergies milk [MILK] Allergy (Severe, Verified 12/19/24 11:38) enterocolitis clindamycin Allergy (Intermediate, Verified 12/19/24 11:38) Vomiting wheat [WHEAT] Allergy (Intermediate, Verified 12/19/24 11:38) enterocolitis amoxicillin [From AUGMENTIN] Adverse Reaction (Intermediate, Verified 12/19/24 11:38) N/V clavulanic acid [From AUGMENTIN] Adverse Reaction (Intermediate, Verified 12/19/24 11:38) N/V corn Adverse Reaction (Mild, Verified 12/19/24 11:38) Nausea and Vomiting NSAIDS (Non-Steroidal Anti-Inflamma [NSAIDS] Adverse Reaction (Mild, Verified 12/19/24 11:38) ULCERS oats Adverse Reaction (Mild, Verified 12/19/24 11:38) Abdominal Pain Medication List - Last Reconciled 12/19/24 by Good Harper MD albuterol sulfate 2.5 mg (3 mL) inhalation Q6H PRN 30 days albuterol sulfate 90 mcg/actuation 2 puffs inhalation Q6H PRN 30 days atorvastatin 20 mg PO BEDTIME blood pressure monitor Automatic, Digital. Dx: I10. Daily As directed, 999 days/lifetime blood sugar diagnostic (FreeStyle Lite Strips) As directed, to test blood sugar 4 times a day blood-glucose meter (FreeStyle Lite Meter kit) DX: E11.9, test blood sugar 2 times a day, duration 999 days blood-glucose sensor (FreeStyle James 3 Sensor device) Apply every 14 days As directed blood-glucose,fifth hand,cont (FreeStyle James 3 [place]) As directed cane Daily As directed. 999 days crutches (pair of crutches) As directed crutches (pair of crutches) As directed Dupixent Pen (dupilumab) 300 mg (2 mL) subcut Q2W NS qilxfgwjyqv-pjqpjwnes-inmnxldm 200-62.5-25 mcg (Trelegy Ellipta) 1 inh inhalation DAILY 0 days glucose (Dex4 Glucose) 16 grams (4 x 4 gram) PO Q15M PRN Grab bar As directed, 999 days hydrocodone-acetaminophen 5-325 mg 1 tab PO BID PRN 30 days ipratropium-albuterol 0.5 mg-3 mg(2.5 mg base)/3 mL 3 mL inhalation Q6H PRN lancets (FreeStyle Lancets) As directed lancets (FreeStyle Lancets) As directed bs checks 2-3 times per day Lantus Solostar U-100 Insulin (insulin glargine) 40 units (0.4 mL) subcut QPM NS lisinopril 40 mg PO DAILY magnesium hydroxide (Milk of Magnesia) 20 mL PO DAILY magnesium oxide 500 mg PO BID methadone 40 mg PO DAILY miscellaneous medical supply Hand-held?shower?head,?As directed, 999 days miscellaneous medical supply 2 med planners; 1 urinal; 1 bed red; 1 commode; 2 grab bars for bed miscellaneous medical supply quad cane small base miscellaneous medical supply Toilet?see?raised,?As directed, 999 days montelukast 10 mg PO BEDTIME mupirocin 2% 1 appl topical BID 7 days nebulizers As directed Novolog FlexPen U-100 Insulin (insulin aspart U-100) Inject 30 units before breakfast, 20 units before lunch and 20 units before dinner subcutaneously 3 times a day; NS omeprazole 20 mg PO DAILY ondansetron 4 mg PO Q8H PRN 30 days pen needle, diabetic (BD Lynda 2nd Gen Pen Needle) DIRECTED INJECTS 4 X/DAY pentoxifylline ER 400 mg PO TID polyethylene glycol 3350 (Miralax) 17 grams PO DAILY PRN semaglutide (Ozempic) 0.5 mg (0.736 mL) subcut QWEEK Shower Chair As directed sodium chloride 0.65% (Saline Nasal) 2 sprays intranasal Q2H PRN sodium phosphates 19-7 gram/118 mL (Fleet Enema) 118 mL CA BEDTIME PRN Tobacco use date assessed: 12/13/23 Dental Screening Dental Screen Date: 09/21/23 HPI 3months F/U appt HPI Details 54 y/o male presents to f/u [facility] cond itions. Blood pressure today 170/96, 105p. He is on lisinopril 40mg daily. No longer taking amlodipine, hydrochlorothiazide. Ongoing lower extremity edema. Pt notes legs/feet swelling worsens after ambulating. They report hip pain/lower leg weakness. Reports falls. [facility] Medical History (Updated 12/19/24 @ 12:07 by Sharif Jacques) Atelectasis of left lung Abnormal chest x-ray Dyslipidemia Uncontrolled type 2 diabetes mellitus with hyperglycemia, with long-term current use of insulin Chronic allergic rhinitis Diabetes Complex regional pain syndrome I Deficient knowledge of leg surgery home care Sinusitis Pre-op evaluation Methadone use GERD (gastroesophageal reflux disease) History of kidney stones Internal and external bleeding hemorrhoids Severe persistent asthma Sciatica Arthritis Anemia Hiatal hernia Dysphagia Hepatitis C COPD (chronic obstructive pulmonary disease) HTN (hypertension) History of drug abuse Cellulitis Surgical History (Updated 12/16/24 @ 12:56 by Gillian Oro RN) History of ERCP History of common bile duct surgery History of hemorrhoidectomy Hx of endoscopy History of colonoscopy History of laparoscopy History of appendectomy Family History Father Diabetes Hypertension Mother Hypertension Social History Housing: Apartment Are you a primary memory care director to a significant other at home: No Do you presently have visiting nurse or other home services: No Alcohol intake: never Comment: cramping, relieved partially after using bathroom Patient Tobacco Use Status: Former Tobacco user Tobacco use type: Cigarette e-Cigarette/Vaping Use: Never Used Second Hand Smoke Exposure: No Substance Use Type: Opiates service: No Current occupational status: unemployed Current occupational exposures/hazards: No Cognitive needs: No Hearing needs: No Vision needs: No Questionnaire PHQ-9 Over the last 2 weeks, how often have you been bothered by any of the following problems? 1. Little interest or pleasure in doing things: not at all 2. Feeling down, depressed, or hopeless: not at all 4. Feeling tired or having little energy: not at all 5. Poor appetite or overeating: not at all 6. Feeling bad about yourself - or that you are a failure or have let yourself or your family down: not at all 7. Trouble concentrating on things, such as reading the newspaper or watching television: not at all 8. Moving or speaking so slowly that other people could have noticed. Or the opposite - being so fidgety or restless that you have been moving around a lot more than usual: not at all 9. Thoughts that you would be better off or of hurting yourself in some way: not at all Source: Developed by Drs. Sigifredo Matson, Sangeeta Sandy, Ty Davis and colleagues, with an educational frida from [employer]. Thrive Questionnaire Date Thrive assessed: 12/19/24 I am a: Patient CORNELIUS-7 AMB Questionnaire CORNELIUS-7 Date CORNELIUS - 7 assessed: 11/17/22 Source: Developed by Drs. Sigifredo Matson, Sangeeta Sandy, Ty Davis and colleagues, with an educational frida from [employer]. Review of Systems Const Denies chills, Denies fatigue, Denies fever(s), Denies headache(s) and Denies weakness ENT Denies dizziness and Denies headache(s) Card Denies dyspnea Resp Denies cough, Denies dyspnea, Denies wheezing and Denies other (shortness of breath) Musc Denies numbness and Denies tingling Neuro Denies dizziness, Denies headache(s), Denies numbness, Denies tingling and Denies weakness Psych Denies anxiety and Denies depression Endo Denies fatigue Aller/Immun Denies wheezing Physical exam (Primary Care) Vital Signs: Last Vital Signs Temp 98.2 F 12/19/24 11:42 Pulse 105 H 12/19/24 11:42 Resp 16 12/19/24 11:42 BP 170/90 H 12/19/24 11:46 Pulse Ox 98 12/19/24 11:42 Oxygen Delivery Method Room Air 12/19/24 11:42 BMI result Body Mass Index 35.8 Tobacco/Smoking Status: Tobacco use Status Tobacco use date assessed 12/13/23 12/19/24 11:34 Patient Tobacco Use Status Former Tobacco user 12/19/24 11:34 Tobacco use type Cigarette 12/19/24 11:34 e-Cigarette/Vaping Use Never Used 12/19/24 11:34 Thrive Assessment: Date of Thrive Assessment Date Thrive assessed 12/19/24 12/19/24 11:34 Const General: well developed; No acute distress Nutritional Appearance: well nourished Orientation/consciousness: patient oriented x3 HENMT Head: Yes normocephalic and Yes atraumatic Eyes General: appearance normal, both eyes and all related structures Pupils: Equal, round and reactive pupils present EOM: EOMs intact bilaterally Resp Effort & Inspection: normal respiratory effort Auscultation: clear to auscultation bilaterally Cardio Rate: regular rate Rhythm: regular rhythm Heart sounds: S1 normal heart sound present, S2 normal heart sound present, no gallops, no murmurs and no rubs Neuro General: patient oriented x3 and gait normal Cranial nerves: Yes Equal, round and reactive pupils present Psych Affect: normal affect Coding Level of Care Code Est Pt Level 5 (70888) Diagnoses Primary hypertension I10 Hypertension type: primary hypertension Lower extremity edema R60.0 Diabetes type 2, uncontrolled E11.65 Falls R29.6 Lower extremity weakness R29.898 Assessment & Plan Assessment & Plan (1) HTN (hypertension): Code(s): I10 - Essential (primary) hypertension Category: Medical Qualifiers: Hypertension type: primary hypertension Qualified Code(s): I10 - Essential (primary) hypertension Plan: Blood?pressure?is?much?too?high.??Goal?is?less?than?140/90 Did?not?tolerate?amlodipine?or?hydrochlorothiazide?which?he?said?made?him?drowsy Continue?lisinopril Will?try?chlorthalidone (2) Lower extremity edema: Code(s): R60.0 - Localized edema Category: Medical Plan: Mild?to?moderate?lower?extremity?edema?bilaterally Starting?him?on?chlorthalidone?for?blood?pressure?in?his?may?help?with?lower?ext remity?edema?as?well Elevate?legs Avoid?salt?and?sodium (3) Diabetes type 2, uncontrolled: Code(s): E11.65 - Type 2 diabetes mellitus with hyperglycemia Category: Medical Plan: Patient?says?his?Ozempic?was?stolen He?hand?a?full?3?month?supply?which?is?now?loss.??Advised?him?to?talk?to?his insurance?company?and?I?send?a?new?script?if?they?will?cover?it. If?he?is?unable?to?get?this,?he?will?increase?his?Lantus?to?44?units?daily?and?l et?know?what?he?is?getting?blood?sugars.??Will?likely?need?further?adjustment. Patient?has?difficulty?with?compliance?with?his?insulin?regimen?as?does?not?like ?give?himself?injections. He?has a?TECHNOLOGY APPLICATIONS CONSULTANT?each?day?and?is?requesting?an?additional?hour - to?have?TECHNOLOGY APPLICATIONS CONSULTANT?josy dixie?and?able?to?help?this. (4) Falls: Code(s): R29.6 - Repeated falls Category: Medical Plan: Hip?pain?and?lower?leg?weakness. ?Miguel?had?ordered?physical?therapy/gait?training?patient?has?not?gotten?sc heduled?for?this?yet. Asking?MA?to?help?facilitate?this today (5) Lower extremity weakness: Code(s): R29.898 - Other symptoms and signs involving the musculoskeletal system Category: Medical Plan: As?above Medications: New chlorthalidone 25 mg PO DAILY 30 days 30 tabs 3RF
[2024-12-19 11:42] VITALS: BP 170/96; PULSE 105; RESP 16; TEMP 36.8; O2SAT 98; BMI 35.8
[2024-12-19 11:46] VITALS: BP 170/90
--- OUTSIDE RECORDS SUMMARY | 2024-12-19 12:21 | XMS_ITS ---
Author Organization [facility] Address [address] [facility] [place] [address] Care Team Providers Care Civilian Technician Name Role Phone Good Harper MD Primary Care Provider Kiet Byrd Unavailable [phone] Allergies Allergen (clinical drug ingredient) Drug/Non Drug Allergy documented on EMR Reaction Allergy Type Onset Date Status [place], Wheat, Oats (uncoded) Unknown Allergy Active ibuprofen Advil Unknown Drug Allergy Active Aleve Unknown Drug Allergy Active amoxicillin / clavulanate Augmentin Unknown Drug Allergy Active Motrin Unknown Drug Allergy Active REASON FOR VISIT At Risk Footcare, Painful Nail(s) aggravated by shoes and causing difficulty standing/walking., Skin problem(s), Toe Irritation Medications Medication SIG (Take, Route, Frequency, Duration) Notes Start Date End Date Status predniSONE 10 MG TAKE SIX TABLETS SANTY LY FOR THREE DAYS, THEN GO DOWN BY 1 TABLET EVERY THREE DAYS TOTAL OF 18 DAYS Oral for 18 Not-Takin g hydrOXYzine HCl 25 MG TAKE 1 TABLET BY M OUTH EVERY 8 HOURS NEEDED Oral for 30 Not-Taking Sucralfate 1 GM/10ML 10 ML ON AN EMPTY STOMACH TWICE A DAY ORALLY 30 DAY(S) Oral for 30 Not-Taking Doxycycline Hyclate 100 MG TAKE 1 CAPSULE BY MOUTH TWICE A DAY FOR 7 DAYS Oral for 7 Not-Taking Clotrimazole 1 % 1 APPLICATION TWICE A DAY EXTERNALLY 7 DAY(S) External for 30 Not-Takin g Physical Therapy . . . 2-3x/week for 3- 4 weeks 04/28/2020 Not-Taking Nightsplint . . . AFO - L1930 for . Not-Taking Z Pac Not-Taking Prednisone Not-Takin g traMADol HCl Not-Ha ing Budesonide 0.5 MG/2ML INHALE 1 VIAL VIA NEBULIZER TWICE A DAY Inhalation for 90 Not-Taking Betamethasone Dipropionate 0.05 % APPLY TO THE AFFECTED AREAS ON THE LEGS TWICE DAILY FOR 2 WEEKS, BREAK ONE WEEK USE VASELINE, REPEAT External for 30 Not-Taking Losartan Potassium-HCTZ Not-Taking Cetirizine HCl 10 MG TAKE 1 TABLET BY [facility] EVERY DAY Oral for 90 Not-Taking Ammonium Lactate 12 % 1 application Externally to affected areas of dry skin to feet except for between the toes Twice a day for 30 days Active Montelukast Sodium 10 MG 1 tablet Orally Once a day Active Omeprazole 20 MG 1 capsule 30 minutes before morning meal Orally Once a day Active Lisinopril 30 MG 1 tablet Orally Once a day Active Extra Depth Orthopedic Shoes, (1) Pair With (3) Pair Custom Heat Molded Multidensity Innersoles Dx: NIDDM/PVD(E11.51), Hammertoe Foot Deformity(M20.41,M20.4 2), Preulcerative Skin Lesion(s)(L85.1) Wear Daily for 365 days 06/02/2024 Active Atorvastatin Calcium 20 MG 1 tablet Orally Once a day Active Magnesium 1000mg Active Lantus 20 units Active Albuterol Active NovoLOG 30 units Active Dupixent 300 MG/2ML as directed Subcutaneous Active Ozempic 25 units Active Social History Tobacco Use: Social History Observation Description Date Details (start date - stop date) Never Smoker NA - NA Tobacco use other than smoking: Question Answer Notes Are you an other tobacco user? No Tobacco Control (Standard) Question Answer Notes Tobacco use: Nonsmoker AUDIT-C (Standard) Question Answer Notes Did you have a drink containing alcohol in the p ast year? No Points 0 Interpretation Negative Vital Signs Height 5ft 7in in 12/04/2024 Weight 230 lbs 12/04/2024 BMI 36.02 kg/m2 12/04/2024 Blood pressure systolic 140 mm Hg 12/05/19 25 Blood pressure diastolic 50 mm Hg 025 Procedures Procedure Date Ordered Date Performed Result Body Sit e 38410-DDGQKWQ NAIL, 1-5 12/04/2024 N/A 37374-UJNS SKIN LESIONS, 2 TO 4 12/04/2024 N/A W3446-LYVRVNEY DYSTROPHIC NAILS ANY # 12/04/2024 N/A Encounters Encounter Location Date Provider Diagnosis [facility] [address] [address] 12/04/2024 Kiet Sutherland Type 2 diabetes mellitus with diabetic peripheral angiopathy without gangrene E11.51 ; Tinea unguium B35.1 ; Pain in right toe(s) M79.674 ; Pain in left toe(s) M79.675 ; Xerosis of skin L85.3 ; Other hammer toe(s) (acquired), right foot M20.41 and Other hammer toe(s) (acquired), left foot M20.42 Assessments Encounter Date Diagnosis (ICD Code) Assessment Notes Treatment Notes Treatment Clinical Notes Section Notes 12/04/2024 Type 2 diabetes mellitus with diabetic peripheral angiopathy without gangrene (ICD-10 - E11.51) Q7(A), Q8(2B), Q9(1B,2C) 12/04/2024 Tinea unguium (ICD-10 - B35.1) 12/04/2024 Pain in right toe(s) (ICD-10 - M79.674) 12/04/2024 Pain in left toe(s) (ICD-10 - M79.675) 12/04/2024 Xerosis of skin (ICD-10 - L85.3) 12/04/2024 Other hammer toe(s) (acquired), right foot (ICD-10 - M20.41) Response to treatment,Impro vement 12/04/2024 Other hammer toe(s) (acquired), left foot (ICD-10 - M20.42) Response to treatment,Impro vement 12/04/2024 Other Plan Of Treatment Pending Test Test Name Order Date 73276-HVBBWYU NAIL, 1-5 12/04/2024 57995-XCCT SKIN LESIONS, 2 TO 4 12/05/19 25 F4333-SOPYFJIZ DYSTROPHIC NAILS ANY # Next Appt Details Follow Up: 2 Months, Reason: Provider Name:Kiet Sutherland , 03/05/2025 01:30:00 PM, [address] [place] [address], [place], [address], Procedure Notes * Category Sub-Category Detail Notes [...] at risk. Therefore, the benign hyperkeratotic lesions, (4) in total, locations as stated and described in the exam ( Medial , IPJ , TA , Medial , IPJ , T5 , Plantar, Heel(s) , B/L ), were pared, and/or cut utilizing a sterile 15 blade, tissue nippers, and/or power dremel instrumentation by the physician of record - 40602, Q8 Debride Nails 1-5 Procedure: Due to the cli nical pathology outlined in the exam findings, performance of this nail treatment is medically necessary as its management by an unskilled/untrained nonprofessional would put this patients foot and overall health at risk. Therefore, debridement to affected nail(s), as described in exam ( T4 , T9 ), was performed exclusively by the physician of [...] necessary to maintain effective symptomatic relief - 86299 Nail Reduction Nail Reduction (-27) Trimming o [...] Notes * Kale ZHONGDOB:1970 (54 yo M)Acc No.[id number]:12/04/2024 Progress Note Patient:?Kale ZHONG Provider:?Kiet Sutherland DPM :1970???Age:54 Y???Sex:Male Carl e:12/04/2024 [address] [facility], [id number] Pcp:Good Harper MD Subjective: * Chief Complaints: * ???At Risk FootcarePainful N ail(s) aggravated by shoes and causing difficulty standing/walking.Skin problem(s)Toe Irritation * HPI: ???At Risk footcare:?Pt States Last PCP Visit:?Date?08/21/2024 ???Toe pain:?Treatments:?Rx shoes.?Skin problems:?Treatments:?medication ( AM Lactin ), states adherence to recommended treatment application.? * ROS:?General/Constitutional:?Nausea?denies.?Vomiting?denies.?Hunger Thirst?denies.?Loss appetite?denies.?Chills?denies.?Fatigue?denies.?Fever?denies.?Night Sweats?denies.?Unexplained weight loss?denies.?Unexplained [...] stomach surgery * Hospitalization/Major Diagno stic Procedure:?[facility] [place] CT Scan Right Foot, Xray Right foot, [...] medical reasons in the past 12 months??No ???Miscellaneous:?Caffeine: no, none. ?Children: yes, 4. ?Exercise: no, Pain. ?Marital status: single. ?Occupation: unemployed. ???Drug/Alcohol:?AUDIT-C (Standard)?Did you have a drink containing alcohol in the past year??No ?Points?0 ?Interpretation?Negative * Medications:?TakingOzempic , Notes to Pharmacist: 25 [...] Foot Deformity(M20.41,M20.42), Preulcerative Skin Lesion(s)(L85.1) Wear Daily Ammonium Lactate 12 % Cream 1 application Externally to affected areas of dry skin to feet except for between the toes Twice a day Taking Ozempic , Notes to Pharmacist: 25 [...] Deformity(M20.41,M20.42), Preulcerative Skin Lesion(s)(L85.1) Wear Daily Taking Ammonium Lactate 12 % Cream 1 application Externally to affected areas of dry skin to feet except for between the toes Twice a day Not-Taking/PRNBetamethasone Dipropionate 0.05 % Ointment APPLY TO [...] L1930 Physical Therapy . . . . 2- 3x/week Prednisone Z Pac traMADol HCl Clotrimazole 1 [...] VIAL VIA NEBULIZER TWICE A DAY Inhalation Not- Taking/PRN Cetirizine HCl 10 MG Tablet TAKE 1 TABLET BY MOUTH EVERY DAY Oral Not-Taking/PRN Losartan Potassium-HCTZ Not-Taking/PRN Nightsplint . . . . AFO - L1930 Not- Taking/PRN Physical Therapy . . . . 2-3x/week [...] Allergies:?AdvilAleveMotrinA ugmentinCorn, Wheat, Oatsyes[Allergies Verified] Objective: * Vitals:?Ht:5ft 7in, Wt:230, BMI:36.02, Shoe size:9, BP:140/50mm Hg, BS:116, Ht- cm: 170.18 cm, Wt-k.33 kg. * ???Past Orders: ???Lab:HEMOGLOBIN A1C (GLYCO HEMOGLOBIN) (Order Date - 10/06/2024) (Collection Date & Time - 12/04/2024 03:01 PM) ? Value Reference Range ?HEMOGLOBIN A1C % (HH) 7.2 * Examination: ???Ophthalmology Referral: ?DIABETES EYE EXAM?Procedure Performed:?Yes ?Date of Exam Performed?08/12/2024 ?Diabetic Retinopathy Screening:?Yes ?Retinal Screening Performed:?Yes ?Findings of Diabetic Eye Exam:?no retinopathy?Vascular: ?DP [...] Plantar, Heel(s) , B/L , Skin shows approximately 80 percent LESS, sign(s) of, dryness, scaling, in a stocking fashion, no fissure(s) present, B/L.?Orthopedic: ?DIGITAL DEFORMITIES:?Digital contracture, PIPJ, 2-5 B/L, incompl-reducible with WB, or to push-up test, no over, nor underlapping.?FOOTWEAR EVALUATION:?good condition, exhibit proper fit and accommodation for pedal deformities. OT were inspected and noted to be worn, but in good condition giving proper support at the present time.?Neurological: ?SENSORY:?Pt relates, paresthesia, Right, Neurological exam reveals intact sensorium, pain sensation normal, vibration sensation intact, pinprick sensation is normal in the lower extremities.?General Examination: ?GENERAL APPEARANCE:?Reveals a pleasant, alert, well nourished, well- developed, well hydrated individual, who demonstrates proper attention to hygiene/body habitus, and is in no acute distress, Pt serves as own historian for office visit today.?ORIENTED:?person, place, and time.?FOOT EXAM:?Lower Extremity Neurological Exam performed:?Yes ?Visual exam of foot performed:?Yes ?Date?12/04/2024 ?Footwear Evaluation?Footwear Evaluation performed:?Yes??? Assessment: * Assessment: 1.?Tinea unguium - B35.1???2 .?Type 2 diabetes mellitus with diabetic peripheral angiopathy without gangrene - E11.51 (Primary)???Specify :Q8???Notes :Q7(A), Q8(2B), Q9(1B,2C)???3.?Pain in right toe(s) - M79.674???4.?Pain in left toe(s) - M79.675???5.?Xerosis of skin - L85.3???Specify :Acute problem, Stable Response to treatment - Improvement???6.?Other hammer toe(s) (acquired), right foot - M20.41???Specify :Chronic problem, Stable (1=3,2=4)???Notes :Response to treatment,Improvement???7.?Other hammer toe(s) (acquired), left foot - M20.42???Specify :Chronic problem, Stable (1=3,2=4)???Notes :Response to treatment,Improvement??? Plan: * Treatment: 2.?Tinea unguium?Procedure: 27582-KHNFSWN NAIL, 1-5 * Procedures:?Debride Nails 1-5:?Procedure:?Due to the clinical pathology outlined in the exam findings, performance of this nail treatment is medically necessary as its management by an unskilled/untrained nonprofessional would put this patients foot and overall health at risk. Therefore, debridement to affected nail(s), as described in exam (?T4?,?T9?), was performed exclusively by the physician of [...] necessary to maintain effective symptomatic relief - 37022.?Keratoma Treatment:?Parring or Cutting of Benign Hyperkeratotic Lesion(s)?(-56) 2-4 Lesions - Due to the at risk nature of the patients medical condition as documented in the exam findings, performance of this keratoderma treatment is medically necessary as its management by an unskilled/untrained nonprofessional would put this patients foot and overall health at risk. Therefore, the benign hyperkeratotic lesions, (4) in total, locations as stated and described in the exam (?Medial?,?IPJ?,?TA?,?Medial?,?IPJ?,?T5?,?Plantar,?Heel(s)?,?B/L?), were pared, and/or cut utilizing a sterile 15 blade, tissue nippers, and/or power dremel instrumentation by the physician of record - 62082, Q8.?Nail Reduction:?Nail Reduction?(-27) Trimming of all dystrophic [...] DYSTROPHIC NAILS ANY #, Modifiers: XS , [id number] DEBRIDE NAIL, 1-5, Modifiers: XS 80857 TRIM SKIN LESIONS, 2 TO 4, Modifiers: [...] have encouraged the patient to call the office.?Shoe Gear Counseling:?A thorough inspection of the patients Rxed shoegear and inserts was performed and findings communicated. We reviewed the many important medical advantages for adhering to regularly wearing these shoe and insert accomidative devices daily as well as reviewed the fact that a failure in accepting these recommedations may be deleterious, unable to prevent, and disadvantagely result in, many pedal complications such as skin irritation, skin ulceration, infection, and even loss of toe/foot/leg/or even their life. Time was also spent reviewing the proper footcare techniques including daily skin moisturization, daily foot inspection for any interruption in skin integrity, open lesions, or sign of infection such as redness/malodor/drainage/swelling as well as daily shoe inspection for the presence of internal foreign bodies and shoe as well as insert wear. Patient questions re: shoes, inserts, and self foot inspections were answered to their satisfaction as the patient verbally confirmed a full understanding of the above information.?Xerosis:?Given recent successful results to treatment, The patient is to cont the rx cream as directed.? ??Screening/Special Tests:?Fall Risk?Assessment:?Performed ?Plan of Care:?Documented ?Type [...] Sutherland DPM Date:?2024 Generated for Spike don/Trinity/Donnie on:?12/19/2024 12:21 PM EDT History and Physical Notes * HPI (History of Present Illness) Category Sub-Category Detail Notes Category Not es Toe pain Treatments: Rx shoes Skin problems Treatments: medication ( AM Lactin ), states adherence to recommended treatment application At Risk footcare Pt States Last PCP Visit: Date: 08/21/2024 Examination Category Sub-Category Detail Notes Category Not es Neurological SENSORY: Pt relates, pare sthesia, Right, Neurological exam reveals intact sensorium, pain sensation normal, vibration sensation intact, pinprick sensation is normal in the lower extremities Dermatologic SKIN FINDINGS: Skin exam reveal s Keratotic lesion(s) located at , Medial , IPJ , TA , Medial , IPJ , T5 , Plantar, Heel(s) , B/L , Skin shows approximately 80 percent LESS, sign(s) of, dryness, scaling, in a stocking fashion, no fissure(s) present, B/L Orthopedic FOOTWEAR EVALUATION: good condit ion, exhibit proper fit and accommodation for pedal deformities. OT were inspected and noted to be worn, but in good condition giving proper support at the present time DIGITAL DEFORMITIES: Digital contracture , PIPJ, 2-5 B/L, incompl-reducible with WB, or to push-up test, no over, nor underlapping General Examination GENERAL APPEARANCE: Reveals a pleasant, alert, well nourished, well-developed, well hydrated individual, who demonstrates proper attention to hygiene/body habitus, and is in no acute distress, Pt serves as own historian for office visit today FOOT EXAM: Lower Extremity Neurological Exa m performed:: Yes Visual exam of foot performed:: Yes Date: 12/04/2024 ORIENTED: person, place, and t nila Footwear Evaluation Footwear Evaluation performe d:: Yes Ophthalmology Referral DIABETES EYE EXAM Procedure Perform ed:: Yes ?Date of Exam Performed: 08/12/2024 Diabetic Retinopathy Screening:: Yes Retinal Screening Performed:: Yes Findings of Diabetic Eye Exam:: no [...]
--- OUTSIDE RECORDS SUMMARY | 2024-12-19 12:22 | XMS_ITS ---
Author Organization [facility] Address [address] [place] [address] Care Team Providers Care Reverse Engineer Name Role Phone Good Harper MD Primary Care Provider Kiet Byrd Unavailable [phone] Allergies Allergen (clinical drug ingredient) Drug/Non Drug Allergy documented on EMR Reaction Allergy Type Onset Date Status [place], Wheat, Oats (uncoded) Unknown Allergy Active ibuprofen [...] HCl 10 MG TAKE 1 TABLET BY [facility] EVERY DAY Oral for 90 Not-Taking [...] Ordered Date Performed Result Body Sit e 21133-JGUCMIY NAIL, 1-5 09/08/2024 N/A 76735-JVCY SKIN LESIONS, 2 TO 4 09/08/2024 N/A I0553-IFNOTZFQ DYSTROPHIC NAILS ANY # 09/08/2024 N/A Encounters Encounter Location Date Provider Diagnosis [facility] [place] [address] [facility] [address] [place] [address] 09/08/2024 Kiet Nunezier Type 2 diabetes mellitus [...] days Pending Test Test Name Order Date 83052-ZOJHSZE NAIL, 1-5 09/08/2024 16176-GPYM SKIN LESIONS, 2 TO 4 09/08/19 25 F3583-XKEVZCST DYSTROPHIC NAILS ANY # Next Appt Details Follow Up: 2 Months, Reason: Provider Name:Kiet Sutherland , 03/05/2025 01:30:00 PM, [address] [facility], [address] [facility], [place], [address], Procedure Notes * Category Sub-Category Detail Notes [...] instrumentation by the physician of record - 33740, Q8 Debride Nails 1-5 Procedure: Due to [...] necessary to maintain effective symptomatic relief - 49343 Nail Reduction Nail Reduction (-27) Trimming o [...] Notes * Kale ZHONGDOB:1970 (54 yo M)Acc No.[id number]:09/08/2024 Progress Note Patient:?Kale ZHONG Provider:?Kiet Sutherland DPM :1970???Age:54 Y???Sex:Male Carl e:09/08/2024 Address: [address] [place], [id number] Pcp:Good Harper MD Subjective: * Chief Complaints: [...] stones stomach surgery * Hospitalization/Major Diagno stic Procedure:?[facility] [place] CT Scan Right Foot, Xray Right foot, [...] Management (4)??? Plan: * Treatment: 2.?Tinea unguium?Procedure: 90543-IFWJGCM NAIL, 1-5 3.?Xerosis of skin? Start Ammonium [...] necessary to maintain effective symptomatic relief - 85242.?Keratoma Treatment:?Parring or Cutting of Benign Hyperkeratotic Lesion(s)?(-56) [...] instrumentation by the physician of record - 51436, Q8.?Nail Reduction:?Nail Reduction?(-27) Trimming of all dystrophic [...] T6, T7, T8?), [facility] to reduce/remove overall nail length and girth, by manual and electrical means with use of a nail nipper and/or dremel, to more viable healthy nail plate or bed tissue - G0127, Q8.? * Procedure Codes:?G0127 LUISA ING DYSTROPHIC NAILS ANY #, Modifiers: XS , [id number] DEBRIDE NAIL, 1-5, Modifiers: XS 40619 TRIM SKIN LESIONS, 2 TO 4, Modifiers: [...]
--- OUTSIDE RECORDS SUMMARY | 2024-12-19 12:22 | XMS_ITS | Patient Health Record ---
Author Organization [facility] Address [address] [facility] [place] [address] Care Team Providers Care Chief Of Harbor Patrol Name Role Phone Good Harper MD Primary Care Provider Kiet Byrd Unavailable [phone] Allergies Allergen (clinical drug ingredient) Drug/Non Drug Allergy documented on EMR Reaction Allergy Type Onset Date Status Mehama, Wheat, Oats (uncoded) Unknown Allergy Active ibuprofen [...] Lab: Notes/Report: HEMOGLOBIN A1C % (HH) 6.5 HEMOGLOBIN A1C (GLYCOHEMOGLO BIN) Reviewed date:12/04/2024 03:01:48 PM Interpretation: Performing Lab: Notes/Report: HEMOGLOBIN A1C % (HH) 7.2 Reason For Referral No Information Medications Medication SIG (Take, Route, Frequency, Duration) Notes Start Date End Date Status Montelukast Sodium 10 MG 1 tablet Orally Once a day Active Magnesium 1000mg Active Omeprazole 20 MG 1 capsule 30 minutes before morning meal Orally Once a day Active Lisinopril 30 MG 1 tablet Orally Once a day Active Lantus 20 units Active predniSONE 10 MG TAKE SIX TABLETS SANTY LY FOR THREE DAYS, THEN GO DOWN BY 1 TABLET EVERY THREE DAYS TOTAL OF 18 DAYS Oral for 18 Not-Takin g Albuterol Active hydrOXYzine HCl 25 MG TAKE 1 TABLET BY M OUTH EVERY 8 HOURS NEEDED Oral for 30 Not-Taking NovoLOG 30 units Active Dupixent 300 MG/2ML as directed Subcutaneous Active Sucralfate 1 GM/10ML 10 ML ON AN EMPTY STOMACH TWICE A DAY ORALLY 30 DAY(S) Oral for 30 Not-Taking traMADol HCl Not-Ha ing Ozempic 25 units Active Doxycycline Hyclate 100 MG TAKE 1 CAPSULE BY MOUTH TWICE A DAY FOR 7 DAYS Oral for 7 Not-Taking Clotrimazole 1 % 1 APPLICATION TWICE A DAY EXTERNALLY 7 DAY(S) External for 30 Not-Takin g Atorvastatin Calcium 20 MG 1 tablet Orally Once a day Active Physical Therapy . . . 2-3x/week for 3- 4 weeks 04/28/2020 Not-Taking Nightsplint . . . AFO - L1930 for . Not-Taking Z Pac Not-Taking Prednisone Not-Takin g Budesonide 0.5 MG/2ML INHALE 1 VIAL VIA NEBULIZER TWICE A DAY Inhalation for 90 Not-Taking Betamethasone Dipropionate 0.05 % APPLY TO THE AFFECTED AREAS ON THE LEGS TWICE DAILY FOR 2 WEEKS, BREAK ONE WEEK USE VASELINE, REPEAT External for 30 Not-Taking Losartan Potassium-HCTZ Not-Taking Cetirizine HCl 10 MG TAKE 1 TABLET BY MO UTH EVERY DAY Oral for 90 Not-Taking Ammonium Lactate 12 % 1 application Externally to affected areas of dry skin to feet except for between the toes Twice a day for 30 days Active Extra Depth Orthopedic Shoes, (1) Pair With (3) Pair Custom Heat Molded Multidensity Innersoles Dx: NIDDM/PVD(E11.51), Hammertoe Foot Deformity(M20.41,M20.4 2), Preulcerative Skin Lesion(s)(L85.1) Wear Daily for 365 days 06/02/2024 Active Social History Tobacco Use: Social History [...] ast year? No Points 0 Interpretation Negative Problems Problem Type SNOMED Code ICD Code Onset Dates Problem Status W/U Status Risk Notes Problem Acquired hammer toe of right foot (2335933433661 105) Other hammer toe(s) (acquired), right foot (M20.41) Active confirmed Response to treatment,I mprovement Problem Acquired hammer toe of left foot (3493896452309 103) Other hammer toe(s) (acquired), left foot (M20.42) Active confirmed Response to treatment,I mprovement Problem Type 2 diabetes mellitus with peripheral angiopathy (083294925) Type 2 diabetes mellitus with diabetic peripheral angiopathy without gangrene (E11.51) Active confirmed Q7(A), Q8(2B), Q9(1B,2C) Vital Signs Blood pressure diastolic 50 mm Hg 12/04/2024 Height 5ft 7in in 12/04/2024 Blood pressure systolic 140 mm Hg 12/04/2024 Weight 230 lbs 12/04/2024 BMI 36.02 kg/m2 12/04/2024 Procedures Procedure Date Ordered Date Performed Result Body Sit e 12453-GVUIEUE NAIL, 1-5 06/02/2024 N/A 30979-TYBC SKIN LESIONS, 2 TO 4 06/02/2024 N/A X4733-RYPLJDHV DYSTROPHIC NAILS ANY # 06/02/2024 N/A 89898-JBUZUQQ NAIL, 1-5 09/08/2024 N/A 95865-KWNC SKIN LESIONS, 2 TO 4 09/08/2024 N/A A7956-JBOBAFHS DYSTROPHIC NAILS ANY # 09/08/2024 N/A 58536-LGRILQR NAIL, 1-5 12/04/2024 N/A 58760-KIUH SKIN LESIONS, 2 TO 4 12/04/2024 N/A V4354-VUHFNTWF DYSTROPHIC NAILS ANY # 12/04/2024 N/A Encounters Encounter Location Date Provider Diagnosis [facility] [address] [place] [address] 06/02/2024 Kiet Ena Type 2 diabetes mellitus with diabetic peripheral angiopathy without gangrene E11.51 ; Tinea unguium B35.1 ; Pain in right toe(s) M79.674 ; Pain in left toe(s) M79.675 ; Other hammer toe(s) (acquired), right foot M20.41 and Other hammer toe(s) (acquired), left foot M20.[address] [address] 09/08/2024 Kiet Sutherland Type 2 diabetes mellitus with diabetic peripheral angiopathy without gangrene E11.51 ; Tinea unguium B35.1 ; Pain in right toe(s) M79.674 ; Pain in left toe(s) M79.675 and Xerosis of skin L85.[address] [address] 12/04/2024 Kiet Sutherland Type 2 diabetes mellitus with diabetic peripheral angiopathy without gangrene E11.51 ; Tinea unguium B35.1 ; Pain in right toe(s) M79.674 ; Pain in left toe(s) M79.675 ; Xerosis of skin L85.3 ; Other hammer toe(s) (acquired), right foot M20.41 and Other hammer toe(s) (acquired), left foot M20.[address] [address] 05/09/2024 Kiet Sutherland [address] [address] 08/20/2024 Kietbrandi Sutherland [address] [address] 10/24/2024 Kiet Sutherland Assessments Encounter Date Diagnosis (ICD Code) Assessment [...] 12/04/2024 Tinea unguium (ICD-10 - B35.1) 12/04/2024 Type 2 diabetes mellitus with diabetic peripheral angiopathy without gangrene (ICD-10 - E11.51) Q7(A), Q8(2B), Q9(1B,2C) 12/04/2024 Pain in right toe(s) (ICD-10 - M79.674) 06/02/2024 Pain in right toe(s) (ICD-10 - M79.674) 09/08/2024 Pain in right toe(s) (ICD-10 - M79.674) 09/08/2024 Pain in left toe(s) (ICD-10 - M79.675) 06/02/2024 Pain in left toe(s) (ICD-10 - M79.675) 12/04/2024 Pain in left toe(s) (ICD-10 - M79.675) 09/08/2024 Xerosis of skin (ICD-10 - L85.3) 12/04/2024 Xerosis of skin (ICD-10 - L85.3) 06/02/2024 Other hammer toe(s) (acquired), right foot (ICD-10 - M20.41) Patient Educated with: DIABETIC FOOT CARE INSTRUCTIONS.p df (DIABETIC FOOT CARE INSTRUCTIONS.p df) 06/02/2024 Other hammer toe(s) (acquired), left foot (ICD-10 - M20.42) 12/04/2024 Other hammer toe(s) (acquired), right foot (ICD-10 - M20.41) Response to treatment,Impro vement 12/04/2024 Other hammer toe(s) (acquired), left foot (ICD-10 - M20.42) Response to treatment,Impro vement 09/08/2024 Other 12/04/2024 Other Plan Of Treatment Pending Test Test Name Order Date 53442-CTHBFZJ NAIL, 1-06/02/2024 42384-HUXEFKW NAIL, 1-5 09/08/2024 26257-VFNIMUP NAIL, 1-5 12/04/2024 22088-FASK SKIN LESIONS, 2 TO 4 12/05/19 25 33144-AGZK SKIN LESIONS, 2 TO 4 09/08/19 25 91089-WSJO SKIN LESIONS, 2 TO 4 06/02/20 24 P5088-IVKDNMJX DYSTROPHIC NAILS ANY # L0527-OUNLASXA DYSTROPHIC NAILS ANY # O6934-PXFZGYBE DYSTROPHIC NAILS ANY # 58188,V6835-QPP TENDON SHEATH/LIGAMENT 0 03/18/202095181,A4172-RZL TENDON SHEATH/LIGAMENT 0 04/15/202007516,Y6839-LYK TENDON SHEATH/LIGAMENT 0 04/19/2020 Next Appt Details Provider Name:Kiet Sutherland , 03/05/2025 01:30:00 PM, [address] [facility] [address], [place], [address], Insurance Providers Payer Name Payer Address Payer Phone Subscriber Number Group Number Insured Name Patient Relationship to Insured Coverage Start Date Coverage End Date [facility] [employer] Claims [address] [place] [id number] Kale Zhong Self - patient is the insured Medical (General) History Medical History History ICD Code asthma Back,Hip,and Knee pain Diverticulosis Hypertension Reflux ( GERD) Stomach ulcer Chicken pox Transfusions Diabetes mellitus Surgical History Surgery Date(Month/Year) appendectomy kidney stones stomach surgery Hospitalization History Reason Date(Month/Year) [facility] 04/23/20 [facility] ER can't walk 04/13/20 [facility] ER Foot swelling 03/14/20 [facility] Ultra Sound Raoul Dop Bilateral Lower Extremity 12/05/19 [facility] Ultra Sound Bilateral Lower Extremit y 12/17/19 [facility] Ultra Sound Left Lower Extremity 12/03 03/22 [facility] Venous Ultra Sound right leg to rule out DVT 01/23/20 [facility] CT Scan Right Foot, Xray Right foot, 10/31/19
--- OUTSIDE RECORDS SUMMARY | 2024-12-19 12:22 | XMS_ITS | Encounter Summary ---
Author Organization [facility] Address [address] [place] [address] Care Team Providers Care Mechanical Maintenance Worker Name Role Phone Unavailable Primary Care Provider Unavailabl e Reason for Visit * Reason Comments Throat Problem Encounter Details Date Type Department Care Team ([facility] st Contact Info) Description 11/15/2016 [address] [facility] [address] [address] Leah Bonner NP Throat Problem Social History [...] desk rapid strep will be removed from [facility] by the [facility] support team. He is placinga ticket as I accidentally resulted the rapid throat test under the wrong patient account. documented in this encounter Plan of Treatment Not on file documented as of this encounter Visit Diagnoses Not on filedocumented in this encounter
--- OUTSIDE RECORDS SUMMARY | 2024-12-19 12:22 | XMS_ITS | Clinical Summary ---
Author Organization [facility] Address [address] [place] [address] Care Team Providers Care Payable Representative Name Role Phone Marylu Estrada MD Primary Care Provider [phone] Surgical History Surgery Date Site/Laterality Comments APPENDECTOMY 2010 PROCEDURE: HISTORICAL APPENDECTOMY KIDNEY STONE SURGERY 2010 PROCEDURE: [place] NEPHROLITHOTOMY REMOVAL CALCULUS HEMORRHOID SURGERY 2010 PROCEDURE: DESTRUCTION OF HEMORRHOIDS COLONOSCOPY 08/14/12 [facility] PROCEDURE: HISTORICAL COLONOSCOPY; COMMENT: hemorrhoids; repeat under propofol in ten yrs ESOPHAGOGASTRODUODENOSCOPY 08/14/12 [facility] PROCEDURE: [place] ESOPHAGOGASTRODUODENOSCOPY TRANSORAL DIAGNOSTIC; COMMENT: Hiatus hernia Medical History Medical History Date Comments Asthma DX:Asthma; COMME NT: Frequent hospitalizations GI bleed DX:GI bleed; COM MENT: 99 - 4 untis - NSAID Abdominal pain DX:Abdominal christen n Opiate dependence (CMS/HCC V 24, CMS/HCC V28) 03/28/2012 DX:Opiate dependence ([facility]) Boxer's fracture DX:Boxer's frac ture Nephrolithiasis DX:Nephrolithias [...] - 2023-2 5 season) 2024 Influenza Vaccine (Season Ended) 2025 HIB Vaccines Aged Out No longer eligi [...] age to complete this topic Meningococcal B Vaccine Aged Out No l onger eligible based on patient's age to complete [...] age to complete this topic Care Teams Payable Representative Relationship Specialty Start Date End Date Marylu Estrada MD [address] [place] [address] PCP - General Internal Medicine 10/01/12
--- OUTSIDE RECORDS SUMMARY | 2024-12-19 12:22 | XMS_ITS ---
Author Organization [facility] Address [address] [place] [address] Care Team Providers Care Hand Candy Dipper Name Role Phone Good Harper MD Primary Care Provider Kiet Byrd Unavailable [phone] REASON FOR VISIT diab shoes Encounters Encounter Location Date Provider [facility] [address] [place] [address] 10/24/2024 Kiet Sutherland Plan Of Treatment Next Appt Details Provider Name:Kiet Sutherland , 03/05/2025 01:30:00 PM, [address] [facility], [place] [address], [place], [address], Progress Notes * Kale ZHONGDOB:1970 (54 yo M)Acc No.[id number]:10/24/2024 Patient:?Kale ZHONG :1970???Age:54 Y???Sex:Male Address:[address] [place], [address] * true * Date:? Generated for Printi ng/Faxing/eTransmitting on:?12/19/2024 12:21 PM EDT
--- OUTSIDE RECORDS SUMMARY | 2024-12-19 12:22 | XMS_ITS | Clinical Summary ---
Author Organization [facility] Address [address] [place] [address] Care Team Providers Care Aerodynamics Engineer Name Role Phone Unavailable Primary Care [...] patient's age to complete this topic Insurance [facility] FFS ONE CARE
== END 2024-12-19 12:21 | disposition home or self-care (01) ==
LOC: HO.HMCFM 11:17
PROVIDERS: PCP Family Medicine; Visit Provider Family Medicine
DX: I10 Essential (primary) hypertension (principal); R60.0 Localized edema; E11.65 Type 2 diabetes mellitus with hyperglycemia; R29.6 Repeated falls; R29.898 Other symptoms and signs involving the musculoskeletal system

== ENCOUNTER → 2024-12-19 11:17 | Outpatient (BNVA) | payer OTHER, SELFPAY | PROVIDERS: PCP Family Medicine; Visit Provider Family Medicine | DX: R06.00 Dyspnea, unspecified (principal); E11.65 Type 2 diabetes mellitus with hyperglycemia; R29.6 Repeated falls; R29.898 Other symptoms and signs involving the musculoskeletal system; Z79.899 Other long term (current) drug therapy | CPT/HCPCS: 30000; 99212 ==

== ENCOUNTER → 2025-01-19 13:12 | Outpatient (BNVA) | payer OTHER, SELFPAY | PROVIDERS: PCP Family Medicine; Visit Provider Internal Medicine Gastroenterology | DX: E11.65 Type 2 diabetes mellitus with hyperglycemia (principal); E78.5 Hyperlipidemia, unspecified; I10 Essential (primary) hypertension | CPT/HCPCS: 82947; 99212 ==

== ENCOUNTER 2025-01-19 14:06 | Outpatient (AMB) | payer OTHER, SELFPAY ==
--- OUTSIDE RECORDS SUMMARY | 2025-01-19 14:11 | XMS_ITS | Clinical Summary ---
Author Organization [facility] Address [address] [place] [address] Care Team Providers Care Granite Polisher Machine Name Role Phone Unavailable Primary Care Provider [...] age to complete this topic Insurance [facility] FFS ONE CARE
--- OUTSIDE RECORDS SUMMARY | 2025-01-19 14:11 | XMS_ITS | Encounter Summary ---
Author Organization [facility] Address [address] [place] [address] Care Team Providers Care Pricing Actuary Name Role Phone Unavailable Primary Care Provider Unavailabl e Reason for Visit * Reason Comments Throat Problem Encounter Details Date Type Department Care Team ([facility] st Contact Info) Description 11/15/2016 Tele[address] [facility] [address] [address] Leah Bonner NP Throat Problem Social History [...] desk rapid strep will be removed from [facility] by the [facility] support team. He is placinga ticket as I accidentally resulted the rapid throat test under the wrong patient account. documented in this encounter Plan of Treatment Not on file documented as of this encounter Visit Diagnoses Not on filedocumented in this encounter
--- OUTSIDE RECORDS SUMMARY | 2025-01-19 14:12 | XMS_ITS | Clinical Summary ---
Author Organization [facility] Address [address] [place] [address] Care Team Providers Care Supervisor Esters And Emulsifiers Name Role Phone Marylu Estrada MD Primary Care Provider [phone] Surgical History Surgery Date Site/Laterality Comments APPENDECTOMY 2010 PROCEDURE: HISTORICAL APPENDECTOMY KIDNEY STONE SURGERY 2010 PROCEDURE: [place] NEPHROLITHOTOMY REMOVAL CALCULUS HEMORRHOID SURGERY 2010 PROCEDURE: DESTRUCTION OF HEMORRHOIDS COLONOSCOPY 08/14/12 [facility] PROCEDURE: HISTORICAL COLONOSCOPY; COMMENT: hemorrhoids; repeat under propofol in ten yrs ESOPHAGOGASTRODUODENOSCOPY 08/14/12 [facility] PROCEDURE: [place] ESOPHAGOGASTRODUODENOSCOPY TRANSORAL DIAGNOSTIC; COMMENT: Hiatus hernia Medical History Medical History Date Comments Asthma DX:Asthma; COMME NT: Frequent hospitalizations GI bleed DX:GI bleed; COM MENT: 99 - 4 untis - NSAID Abdominal pain DX:Abdominal christen n Opiate dependence (CMS/HCC V 24, CMS/HCC V28) 03/28/2012 DX:Opiate dependence ([facility]) Boxer's fracture DX:Boxer's frac ture Nephrolithiasis DX:Nephrolithias [...] age to complete this topic Care Teams Supervisor Esters And Emulsifiers Relationship Specialty Start Date End Date Marylu Estrada MD [address] [place] [address] PCP - General Internal Medicine 10/01/12
[2025-01-19 14:14] VITALS: BP 178/100; PULSE 110; O2SAT 93; BMI 34.9
--- NOTE | 2025-01-19 14:14 | A.OFFVIS_ITS ---
Vital Signs 01/19/25 14:14 01/19/25 14:30 01/19/25 14:55 Height 5 ft 7 in Weight 222 lb 10.67 oz BMI 34.9 BP 178/100 H 160/100 H 152/90 H Blood Pressure Location Rt brachial Lt brachial Rt brachial Position Sitting Sitting Sitting Pulse 110 H 101 H Pulse Source Pulse Oximeter Pulse Oximeter Pulse Oximetry (%) 93 95 Oxygen Delivery Method Room Air Room Air Intake Visit Reasons: T2DM Intake Note: Patient presents today for a follow-up on Type 2 Diabetes Mellitus: Last Diabetic eye exam was on: DUE Last Podiatry exam was on: Patient does not see a Personnel Arbitrator Most recent HbA1c: 7.2%, 11/10/2024 Random Glucose- 215 mg/dL, Today Rabbit Dresser Required: No Accompanied by: Self / Same As Patient Allergies milk [MILK] Allergy (Severe, Verified 12/19/24 11:38) enterocolitis clindamycin Allergy (Intermediate, Verified 12/19/24 11:38) Vomiting wheat [WHEAT] Allergy (Intermediate, Verified 12/19/24 11:38) enterocolitis amoxicillin [From AUGMENTIN] Adverse Reaction (Intermediate, Verified 12/19/24 11:38) N/V clavulanic acid [From AUGMENTIN] Adverse Reaction (Intermediate, Verified 12/19/24 11:38) N/V corn Adverse Reaction (Mild, Verified 12/19/24 11:38) Nausea and Vomiting NSAIDS (Non-Steroidal Anti-Inflamma [NSAIDS] Adverse Reaction (Mild, Verified 12/19/24 11:38) ULCERS oats Adverse Reaction (Mild, Verified 12/19/24 11:38) Abdominal Pain HPI HPI T2DM: Details: Patient is a 55-year-old male with a significant past medical history of hypertension, type 2 diabetes, ED, dyslipidemia, CKD, chronic pain syndrome, hep C, COPD, methadone use presenting today for a diabetic follow-up. Endo: His last A1c was 7.5%. He is on Lantus 40 units at night, NovoLog t.i.d. 20-30 units, ozempic 0.5 mg weekly. -he states that he does not always take his insulin as directed. Sometimes if he does the NovoLog and the Lantus to close to bedtime he will get low blood sugars. -He has tried metformin but did not tolerate. He has tried trulicity but did not tolerate due to vomiting. thong and he states it was effective but was getting abdominal pain and nausea with it. Does not have his reader today He states he has not had any low blood sugars -Last eye exam: end of Sep 2023- states that there were some findings (does not recall name of eye issues) and is seeing retina specialist -Last foot exam: sees Dr. Eastman. CV: blood pressure in the office is 160/100. Repeated blood pressure is 152/90. He states that his blood pressure is only elevated because of the pain and he does not want to treat this. His PCP is aware that this is going on. He is taking the lisinopril 30 mg and chlorthalidone 25 mg daily. [facility] Medical History (Updated 12/19/24 @ 12:07 by Sharif Jacques) Atelectasis of left lung Abnormal chest x-ray Dyslipidemia Uncontrolled type 2 diabetes mellitus with hyperglycemia, with long-term current use of insulin Chronic allergic rhinitis Diabetes Complex regional pain syndrome I Deficient knowledge of leg surgery home care Sinusitis Pre-op evaluation Methadone use GERD (gastroesophageal reflux disease) History of kidney stones Internal and external bleeding hemorrhoids Severe persistent asthma Sciatica Arthritis Anemia Hiatal hernia Dysphagia Hepatitis C COPD (chronic obstructive pulmonary disease) HTN (hypertension) History of drug abuse Cellulitis Surgical History (Updated 12/16/24 @ 12:56 by Gillian Oro RN) History of ERCP History of common bile duct surgery History of hemorrhoidectomy Hx of endoscopy History of colonoscopy History of laparoscopy History of appendectomy Family History Father Diabetes Hypertension Mother Hypertension Social History Housing: Apartment Are you a primary rn home care to a significant other at home: No Do you presently have visiting nurse or other home services: No Alcohol intake: never Comment: cramping, relieved partially after using bathroom Patient Tobacco Use Status: Former Tobacco user Tobacco use type: Cigarette e-Cigarette/Vaping Use: Never Used Second Hand Smoke Exposure: No Substance Use Type: Opiates service: No Current occupational status: unemployed Current occupational exposures/hazards: No Cognitive needs: No Hearing needs: No Vision needs: No Physical Exam Vital Signs: Last Vital Signs Pulse 101 H 01/19/25 14:30 BP 152/90 H 01/19/25 14:55 Pulse Ox 95 01/19/25 14:30 Oxygen Delivery Method Room Air 01/19/25 14:30 BMI result Body Mass Index 34.9 Const Orientation/consciousness: patient oriented x3 HEENT Ears: hearing grossly normal bilaterally Neck Thyroid: Thyroid normal Lymphatic: no lymphadenopathy noted Resp Auscultation: clear to auscultation bilaterally Cardio Rate: regular rate Rhythm: regular rhythm Heart sounds: S1 normal heart sound present and S2 normal heart sound present Skin General skin exam: no rashes or lesions noted Neuro General: patient oriented x3, gait normal and no focal motor deficits Results Reviewed Results Reviewed: Laboratory Last Values Glucose (Clinic) 215 mg/dL (60-115) H 01/19/25 14:17 Assessment & Plan Assessment & Plan (1) Diabetes type 2, uncontrolled: Code(s): E11.65 - Type 2 diabetes mellitus with hyperglycemia Category: Medical Plan: I have told him to start taking the Lantus 40 units as directed Reduce NovoLog to 10-20 units Increase Ozempic to 1 mg (2) HLD (hyperlipidemia): Code(s): E78.5 - Hyperlipidemia, unspecified Category: Medical Plan: Labs ordered. Continue current regimen (3) HTN (hypertension): Code(s): I10 - Essential (primary) hypertension Category: Medical Qualifiers: Hypertension type: primary hypertension Qualified Code(s): I10 - Essential (primary) hypertension Plan: Advised him that his blood pressure is poorly controlled and that we should adjust his medication but he absolutely refuses. He understands that there is a risk of a heart attack and stroke. Medications: New semaglutide (Ozempic) 1 mg (0.75 mL) subcut QWEEK 3 mL 3RF Changed From Novolog FlexPen U-100 Insulin (insulin aspart U-100) Inject 30 units before breakfast, 20 units before lunch and 20 units before dinner subcutaneously 3 times a day; 30 mL 4RF NS To Novolog FlexPen U-100 Insulin (insulin aspart U-100) with meals; 30 mL 4RF NS Discontinued semaglutide (Ozempic) Discontinued Reason: Doctor's Order 0.5 mg (0.736 mL) subcut QWEEK 9 mL 3RF Patient Instructions: increase ozempic to 1 mg be consistent with the lantus at 40 units decrease novolog 10-20 units with meals Coding Level of Care Code Est Pt Level 4 (47031) Complex EM visit Add On G2211 Diagnoses Diabetes type 2, uncontrolled E11.65 HLD (hyperlipidemia) E78.5 Primary hypertension I10 Hypertension type: primary hypertension
[2025-01-19 14:22] LABS: Glucose, Whole Blood 215 mg/dL (60-115)
[2025-01-19 14:30] VITALS: BP 160/100; PULSE 101; O2SAT 95
[2025-01-19 14:55] VITALS: BP 152/90
== END 2025-01-19 15:00 | disposition home or self-care (01) ==
LOC: HO.ENCR 14:06
PROVIDERS: PCP Family Medicine; Visit Provider Physician Assistant
DX: E11.65 Type 2 diabetes mellitus with hyperglycemia (principal); E78.5 Hyperlipidemia, unspecified; I10 Essential (primary) hypertension

== ENCOUNTER 2025-01-28 10:30 | Outpatient (AMB) | payer OTHER, SELFPAY ==
--- NOTE | 2025-01-28 10:32 | A.OFFPC_ITS ---
Vital Signs 01/28/25 10:38 Height 5 ft 7 in Weight 225 lb 8 oz BMI 35.3 BP 132/70 Blood Pressure Location Lt brachial Position Sitting Respiration 16 Pulse 88 Pulse Source Pulse Oximeter Temp 97.9 F Temp Source Oral Pulse Oximetry (%) 96 Oxygen Delivery Method Room Air Intake Visit Reasons: f/u htn Intake Note: patient is scheduled for HTN. Patient said that he had gotten a cortisone shot in hip area and now is having pain in hip and complain that shot didn't work. Allergies milk [MILK] Allergy (Severe, Verified 01/28/25 10:35) enterocolitis clindamycin Allergy (Intermediate, Verified 01/28/25 10:35) Vomiting wheat [WHEAT] Allergy (Intermediate, Verified 01/28/25 10:35) enterocolitis amoxicillin [From AUGMENTIN] Adverse Reaction (Intermediate, Verified 01/28/25 10:35) N/V clavulanic acid [From AUGMENTIN] Adverse Reaction (Intermediate, Verified 01/28/25 10:35) N/V corn Adverse Reaction (Mild, Verified 01/28/25 10:35) Nausea and Vomiting NSAIDS (Non-Steroidal Anti-Inflamma [NSAIDS] Adverse Reaction (Mild, Verified 01/28/25 10:35) ULCERS oats Adverse Reaction (Mild, Verified 01/28/25 10:35) Abdominal Pain Medication List - Last Reconciled 01/28/25 by Good Harper MD albuterol sulfate 2.5 mg (3 mL) inhalation Q6H PRN 30 days albuterol sulfate 90 mcg/actuation 2 puffs inhalation Q6H PRN 30 days atorvastatin 20 mg PO BEDTIME blood pressure monitor Automatic, Digital. Dx: I10. Daily As directed, 999 days/lifetime blood sugar diagnostic (FreeStyle Lite Strips) As directed, to test blood sugar 4 times a day blood-glucose meter (FreeStyle Lite Meter kit) DX: E11.9, test blood sugar 2 times a day, duration 999 days blood-glucose sensor (FreeStyle James 3 Sensor device) Apply every 14 days As directed blood-glucose,decontamination worker,cont (FreeStyle James 3 [place]) As directed cane Daily As directed. 999 days chlorthalidone 25 mg PO DAILY 30 days crutches (pair of crutches) As directed crutches (pair of crutches) As directed Dupixent Pen (dupilumab) 300 mg (2 mL) subcut Q2W NS dcpqrflqbyx-vhmefpqpl-wjglbcxq 200-62.5-25 mcg (Trelegy Ellipta) 1 inh inhalation DAILY 0 days glucose (Dex4 Glucose) 16 grams (4 x 4 gram) PO Q15M PRN Grab bar As directed, 999 days hydrocodone-acetaminophen 5-325 mg 1 tab PO BID PRN 30 days ipratropium-albuterol 0.5 mg-3 mg(2.5 mg base)/3 mL 3 mL inhalation Q6H PRN lancets (FreeStyle Lancets) As directed lancets (FreeStyle Lancets) As directed bs checks 2-3 times per day Lantus Solostar U-100 Insulin (insulin glargine) 40 units (0.4 mL) subcut QPM NS lisinopril 40 mg PO DAILY magnesium hydroxide (Milk of Magnesia) 20 mL PO DAILY magnesium oxide 500 mg PO BID methadone 40 mg PO DAILY miscellaneous medical supply Hand-held?shower?head,?As directed, 999 days miscellaneous medical supply 2 med planners; 1 urinal; 1 bed red; 1 commode; 2 grab bars for bed miscellaneous medical supply quad cane small base miscellaneous medical supply Toilet?see?raised,?As directed, 999 days montelukast 10 mg PO BEDTIME mupirocin 2% 1 appl topical BID 7 days nebulizers As directed Novolog FlexPen U-100 Insulin (insulin aspart U-100) 30 units (0.3 mL) subcut TID NS omeprazole 20 mg PO DAILY ondansetron 4 mg PO Q8H PRN 30 days pen needle, diabetic (BD Lynda 2nd Gen Pen Needle) DIRECTED INJECTS 4 X/DAY pentoxifylline ER 400 mg PO TID polyethylene glycol 3350 (Miralax) 17 grams PO DAILY PRN semaglutide (Ozempic) 1 mg (0.75 mL) subcut QWEEK Shower Chair As directed sodium chloride 0.65% (Saline Nasal) 2 sprays intranasal Q2H PRN sodium phosphates 19-7 gram/118 mL (Fleet Enema) 118 mL AK BEDTIME PRN Tobacco use date assessed: 01/28/25 Dental Screening Dental Screen Date: 01/28/25 Did you have a dental visit in the last 12 months?: No Did you have a dental problem in the last 6 months where you did not have access to dental care?: No Was dental information given to patient?: No HPI f/u htn HPI Details 55 y/o male presents to f/u HTN. BP today 132/70, 88p. He is on lisinopril 40mg daily. Had been following up with orthopedics for L hip pain. He had noted he attended physical therapy but was too painful. Pt declined total hip arthroplasty. FOR[facility]LY [facility], [facility] Medical History (Updated 12/19/24 @ 12:07 by Sharif Jacques) Atelectasis of left lung Abnormal chest x-ray Dyslipidemia Uncontrolled type 2 diabetes mellitus with hyperglycemia, with long-term current use of insulin Chronic allergic rhinitis Diabetes Complex regional pain syndrome I Deficient knowledge of leg surgery home care Sinusitis Pre-op evaluation Methadone use GERD (gastroesophageal reflux disease) History of kidney stones Internal and external bleeding hemorrhoids Severe persistent asthma Sciatica Arthritis Anemia Hiatal hernia Dysphagia Hepatitis C COPD (chronic obstructive pulmonary disease) HTN (hypertension) History of drug abuse Cellulitis Surgical History (Updated 12/16/24 @ 12:56 by Gillian Oro RN) History of ERCP History of common bile duct surgery History of hemorrhoidectomy Hx of endoscopy History of colonoscopy History of laparoscopy History of appendectomy Family History Father Diabetes Hypertension Mother Hypertension Social History Housing: Apartment Are you a primary medicare specialist to a significant other at home: No Do you presently have visiting nurse or other home services: No Alcohol intake: never Comment: cramping, relieved partially after using bathroom Patient Tobacco Use Status: Former Tobacco user Tobacco use type: Cigarette e-Cigarette/Vaping Use: Never Used Second Hand Smoke Exposure: No Substance Use Type: Opiates service: No Current occupational status: unemployed Current occupational exposures/hazards: No Cognitive needs: No Hearing needs: No Vision needs: Yes Questionnaire PHQ-9 Over the last 2 weeks, how often have you been bothered by any of the following problems? 1. Little interest or pleasure in doing things: several days 2. Feeling down, depressed, or hopeless: not at all 3. Trouble falling or staying asleep, or sleeping too much: not at all 4. Feeling tired or having little energy: not at all 5. Poor appetite or overeating: not at all 6. Feeling bad about yourself - or that you are a failure or have let yourself or your family down: not at all 7. Trouble concentrating on things, such as reading the newspaper or watching television: not at all 8. Moving or speaking so slowly that other people could have noticed. Or the opposite - being so fidgety or restless that you have been moving around a lot more than usual: not at all 9. Thoughts that you would be better off or of hurting yourself in some way: not at all Total score: 1 Depression Screening Interpretation: Negative Depression Screening Done: Yes Source: Developed by Drs. Sigifredo Matson, Sangeeta Sandy, Ty Davis and colleagues, with an educational frida from [employer]. Thrive Questionnaire Date Thrive assessed: 01/28/25 I am a: Patient What is your living situation today?: I have a steady place to live Within the past 12 months, did the food you bought not last and you didn't have the money to get more?: I choose not to answer this question THRIVE Score: 0 CORNELIUS-7 AMB Questionnaire CORNELIUS-7 Date CORENLIUS - 7 assessed: 11/17/22 Feeling nervous, anxious, or on edge: 0 = Not at all Not being able to stop or control worryin = Not at all Worrying too much about different things: 0 = Not at all Trouble relaxin = Not at all Being so restless that it is hard to sit still: 0 = Not at all Becoming easily annoyed or irritable: 0 = Not at all Feeling afraid as if something awful might happen: 0 = Not at all Total CORNELIUS-7 score (0-4 normal; 5-9 mild; 10-14 moderate; 15-21 severe): 0 Source: Developed by Drs. Sigifredo Matson, Sangeeta Sandy, Ty Davis and colleagues, with an educational frida from [employer]. CORNELIUS-7 Assessment Billing CORNELIUS-7 Assessment Tool: CORNELIUS-7 Assessment 31502 Review of Systems Const Denies chills, Denies fatigue, Denies fever(s), Denies headache(s) and Denies weakness ENT Denies dizziness and Denies headache(s) Card Denies dyspnea Resp Denies cough, Denies dyspnea, Denies wheezing and Denies other (shortness of breath) Musc Denies numbness and Denies tingling Neuro Denies dizziness, Denies headache(s), Denies numbness, Denies tingling and Denies weakness Psych Denies anxiety and Denies depression Endo Denies fatigue Aller/Immun Denies wheezing Physical exam (Primary Care) Vital Signs: Last Vital Signs Temp 97.9 F 01/28/25 10:38 Pulse 88 01/28/25 10:38 Resp 16 01/28/25 10:38 BP 132/70 01/28/25 10:38 Pulse Ox 96 01/28/25 10:38 Oxygen Delivery Method Room Air 01/28/25 10:38 BMI result Body Mass Index 35.3 Tobacco/Smoking Status: Tobacco use Status Tobacco use date assessed 01/28/25 01/28/25 10:43 Patient Tobacco Use Status Former Tobacco user 01/28/25 10:34 Tobacco use type Cigarette 01/28/25 10:34 e-Cigarette/Vaping Use Never Used 01/28/25 10:34 PHQ-9: PHQ-9 Score PHQ-9: Total score 1 01/28/25 10:43 Depression Screening Interpretation: Negative Thrive Assessment: Date of Thrive Assessment Date Thrive assessed 01/28/25 01/28/25 10:43 Const General: well developed; No acute distress Nutritional Appearance: well nourished Orientation/consciousness: patient oriented x3 HENMT Head: Yes normocephalic and Yes atraumatic Eyes General: appearance normal, both eyes and all related structures Pupils: Equal, round and reactive pupils present EOM: EOMs intact bilaterally Resp Effort & Inspection: normal respiratory effort Neuro General: patient oriented x3 and No gait normal Cranial nerves: Yes Equal, round and reactive pupils present Psych Affect: normal affect Coding Level of Care Code Est Pt Level 4 (01580) Diagnoses Primary hypertension I10 Hypertension type: primary hypertension Hip pain M25.559 Lower extremity weakness R29.898 Lumbar radicular pain M54.16 Additional Codes CORNELIUS-7 Assessment Billing - CORNELIUS-7 Assessment Tool: CORNELIUS-7 Assessment 98713 ([id number]) Assessment & Plan Assessment & Plan (1) HTN (hypertension): Code(s): I10 - Essential (primary) hypertension Category: Medical Qualifiers: Hypertension type: primary hypertension Qualified Code(s): I10 - Essential (primary) hypertension Plan: Blood?pressure?appears?controlled?today.??Goal?is?less?than?140/90 His?blood?pressures?do?fluctuate?with his?stress?and?pain?levels No?change?to?his?regimen?today.??Continue?lisinopril?and?chlorthalidone?as?presc ribed Will?adjust?chlorthalidone?if?further?blood?pressure?control is?needed. Will?have?him?return?in?2?weeks?for?a?nurse?visit?to?recheck?blood?pressure. (2) Hip pain: Code(s): M25.559 - Pain in unspecified hip Category: Medical (3) Lower extremity weakness: Code(s): R29.898 - Other symptoms and signs involving the musculoskeletal system Category: Medical (4) Lumbar radicular pain: Code(s): M54.16 - Radiculopathy, lumbar region Category: Medical Plan History?of?low?back?injury?and?pain?with?radicular?symptoms?down?left?leg?and? sciatica. Lower?extremity?weakness?secondary?to?the?above He?has?had?numerous?attempts?at?injection?therapy?without?much?relief.??I?did?ad vise?him?to?continue?to?follow-up?with?ortho?and?Physical?therapy He?is?using?hydrocodone-acetaminophen?as?prescribed?and?this?helps. Continue?to?use?cane.??Can?use?walker?when?he?gets?of?fatigued. Has?a?shower?chair?script. 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 Medications: Changed From Shower Chair As directed 1 ea 0RF M54.16 - Radiculopathy, lumbar region, R29.898 - Other symptoms and signs involving the musculoskeletal system To Shower Chair Daily As directed, 999 days 1 ea 0RF M54.16 - Radiculopathy, lumbar region, R29.898 - Other symptoms and signs involving the musculoskeletal system
[2025-01-28 10:38] VITALS: BP 132/70; PULSE 88; RESP 16; TEMP 36.6; O2SAT 96; BMI 35.3
--- OUTSIDE RECORDS SUMMARY | 2025-01-28 11:32 | XMS_ITS ---
[facility] Address [address] [place] [address] Care Team Providers Care Business Mail Entry Clerk Name Role Phone Good Harper MD Primary Care Provider Kiet Byrd Unavailable [phone] Allergies Allergen (clinical drug ingredient) Drug/Non Drug Allergy documented on EMR Reaction Allergy Type Onset Date Status [place], Wheat, Oats (uncoded) Unknown Allergy Active ibuprofen [...] HCl 10 MG TAKE 1 TABLET BY [facility] EVERY DAY Oral for 90 [...] No Points 0 Interpretation Negative Vital Signs Blood pressure systolic 140 mm Hg 12/05/19 25 Blood pressure diastolic 50 mm Hg 025 Height 5ft 7in in 12/04/2024 Weight 230 lbs 12/04/2024 BMI 36.02 kg/m2 12/04/2024 Procedures Procedure Date Ordered Date Performed Result Body Sit e 51845-VOCZGUK NAIL, 1-5 12/04/2024 N/A 18331-IMSL SKIN LESIONS, 2 TO 4 12/04/2024 N/A E4614-QPIKLKXW DYSTROPHIC NAILS ANY # 12/04/2024 N/A Encounters Encounter Location Date Provider Diagnosis [facility] [address] [address] 12/04/2024 Kiet Sutherland Type 2 diabetes mellitus [...] Treatment Pending Test Test Name Order Date 06914-BVKRYVU NAIL, 1-5 12/04/2024 04953-EGQW SKIN LESIONS, 2 TO 4 12/05/19 25 C3263-[id number] DYSTROPHIC NAILS ANY # Next Appt Details Follow Up: 2 Months, Reason: Provider Name:Kiet Sutherland , 03/05/2025 01:30:00 PM, [address] [place] [address], [place], [id number], Procedure Notes * Category Sub-Category Detail Notes [...] instrumentation by the physician of record - 12219, Q8 Debride Nails 1-5 Procedure: Due to [...] necessary to maintain effective symptomatic relief - 86915 Nail Reduction Nail Reduction (-27) Trimming o [...] Notes * Kale ZHONGDOB:1970 (54 yo M)Acc No.[id number]:12/04/2024 Progress Note Patient:?Kale ZHONG Provider:?Kiet Sutherland DPM :1970???Age:54 Y???Sex:Male Carl e:12/04/2024 [facility] [address] [facility] [id number] Pcp:Good Harper MD Subjective: * Chief Complaints: [...] stomach surgery * Hospitalization/Major Diagno stic [place] [place], Xray Right foot, [...] to treatment,Improvement??? Plan: * Treatment: 2.?Tinea unguium?Procedure: 89963-LLEEYSK NAIL, 1-5 * Procedures:?Debride Nails 1-5:?Procedure:?Due to [...] necessary to maintain effective symptomatic relief - 56486.?Keratoma Treatment:?Parring or Cutting of Benign Hyperkeratotic Lesion(s)?(-56) [...] instrumentation by the physician of record - 78278, Q8.?Nail Reduction:?Nail Reduction?(-27) Trimming of all dystrophic [...] DYSTROPHIC NAILS ANY #, Modifiers: XS , [id number] DEBRIDE NAIL, 1-5, Modifiers: XS 12524 TRIM SKIN LESIONS, 2 TO 4, Modifiers: [...] Sutherland DPM Date:?2024 Generated for Spike don/Trinity/Donnie on:?01/28/2025 11:32 AM EDT History and Physical Notes * HPI [...] Date: 12/04/2024 ORIENTED: person, place, and t nlia Footwear Evaluation Footwear Evaluation performe d:: Yes [...]
== END 2025-01-28 11:04 | disposition home or self-care (01) ==
LOC: HO.HMCFM 10:30
PROVIDERS: PCP Family Medicine; Visit Provider Family Medicine
DX: I10 Essential (primary) hypertension (principal); M25.559 Pain in unspecified hip; R29.898 Other symptoms and signs involving the musculoskeletal system; M54.16 Radiculopathy, lumbar region

== ENCOUNTER → 2025-01-28 10:30 | Outpatient (BNVA) | payer OTHER, SELFPAY | PROVIDERS: PCP Family Medicine; Visit Provider Family Medicine | DX: I10 Essential (primary) hypertension (principal); M25.552 Pain in left hip; R29.898 Other symptoms and signs involving the musculoskeletal system; M54.16 Radiculopathy, lumbar region; Z79.899 Other long term (current) drug therapy | CPT/HCPCS: 96127; 99212 ==

== ENCOUNTER 2025-02-24 14:18 | Outpatient (AMB) | payer OTHER, SELFPAY ==
[2025-02-24 14:38] VITALS: BP 170/104; PULSE 122; O2SAT 96; BMI 35.4
--- NOTE | 2025-02-24 14:38 | MHC.OFFVIS ---
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 Required: No Accompanied by: Self / Same As Patient Allergies milk (MILK) Allergy (Severe, Verified 02/24/25 14:43) enterocolitis clindamycin Allergy (Intermediate, Verified 02/24/25 14:43) Vomiting wheat (WHEAT) Allergy (Intermediate, Verified 02/24/25 14:43) enterocolitis amoxicillin (From AUGMENTIN) Adverse Reaction (Intermediate, Verified 02/24/25 14:43) N/V clavulanic acid (From AUGMENTIN) Adverse Reaction (Intermediate, Verified 02/24/25 14:43) N/V corn Adverse Reaction (Mild, Verified 02/24/25 14:43) Nausea and Vomiting NSAIDS (Non-Steroidal Anti-Inflamma (NSAIDS) Adverse Reaction (Mild, Verified 02/24/25 14:43) ULCERS oats Adverse Reaction (Mild, Verified 02/24/25 14:43) Abdominal Pain HPI Comments Details: The patient is a 55-year-old gentleman with severe persistent asthma. He he has had previous intubations in the past for status asthmaticus. More recently he has had multiple bouts of prednisone tapers for his significant persistent symptoms. The patient has been using his current respiratory medications with very good adherence. However, still requiring short-acting beta agonists several times a day. He also uses nebulizer. At this point the patient is failing outpatient therapy with uncontrolled asthma. Has significant wheezing on examination. Also has significant allergies. A previous blood work is IgE levels had been noted to be elevated and also had some degree of eosinophilia. More recently he was evaluated by Allergy. He will be following up with them soon. Therefore, we will continue awaiting their recommendations. He also had pulmonary function studies demonstrating severe obstruction consistent with severe uncontrolled asthma. We did evaluate his blood work demonstrating the elevations in his eosinophils. The patient also has elevations in his eosinophils. Based on these findings and is positive allergy testing the patient is a great candidate for biologic therapy with Dupixent. 11/04/2020 the patient is here for a preoperative evaluation. Overall the patient has been doing very good from a respiratory status. He has been off all prednisone. Patient is continue with Dupixent every 2 weeks. He is continue with respiratory therapy as prescribed with good adherence. He has not required his nebulized therapy. He has been having issues with his hemorrhoids and will undergo surgery tomorrow. However due to his respiratory condition a preop was requested. The patient has been feeling well. He does have some cough but is nonproductive intubated in nature. He has been able to walk and go up a lot of stairs without any difficulty. In the office he did to spirometry with an FEV1 to FVC of 61% and FEV1 of 56% predicted. This is consistent with moderate COPD. Overall lot better for him. At this point the patient is medically optimized from a respiratory status. In regards to a surgical standpoint due to his respiratory issues he would benefit from avoiding general anesthesia to minimize bronchospasms and difficulty with per status if possible. Either LMA or spinal would be appropriate. However, if the alternatives are not available I do believe that based on his current respiratory status and is optimize state the patient is able to tolerate general anesthesia. Due to his moderate obstruction the patient does have increased perioperative pulmonary complications which include, atelectasis, hypoxia prolonged mechanical ventilation and also pneumonia. Again, patient is medically optimized and may able to pursue with surgery and anesthesia. 10/05/2023 the patient has a pulmonary visit today. Overall he is doing better from a respiratory status. He continues to Dupixent every 2 weeks with very good response. He does continue to use his maintenance therapy which includes Singulair and Combivent. The patient has not required any prednisone. He does have some dyspnea on exertion mild in severity. Also has an intermittent cough. That typically is nonproductive in nature. Otherwise he is without any other respiratory complaints. 05/15/2024 the patient is here for a pulmonary follow-up visit. He is having hard time sinusitis. Was evaluated several weeks ago because the sinusitis and is still not better. He has a hard time breathing through his nose. He has noticed some increased bloody drainage primarily from the right nares. He is getting some irritation and headaches. Sinus pressure is uncomfortable moderate severity. He is concerned that the symptoms are going to continue dripping down affecting his asthma. The patient will go ahead and get x-rays at this time for his sinuses. He already has some wheezing on examination. Therefore will go ahead and start him on some prednisone and will start him on Afrin for 5 days. The patient does have a blood pressure therefore the he can not use Sudafed. Will put him on Levaquin. If the patient is doing better he will call. At that point will go ahead and refer him to ENT and also request a CT scan of the sinuses. He will continue with Dupixent injection at this time. He will continue with his respiratory therapy as prescribed. The patient follow-up in 3-4 weeks. 08/20/2024 the patient is here for a pulmonary follow-up visit. He is very aggravated today as he has had a bad interaction with another individual and caused him to have significant stress and anger. Therefore when he came in his blood pressure is significantly elevated. I did check her myself in the left arm his blood pressure was 210 over 110 and his right arm 195/110. We did recommend patient go to the ER because this could be potentially life-threatening can end up with a heart attack or stroke but he is reluctant that he does not want to go anywhere that he wants to be by himself. He understands the severity of not getting this blood pressure taking care of and the concerns and potential outcomes from having this elevated blood pressure for too long. In the meantime his x-ray was also done of the chest. He still has some slight opacity to the left lower lung where he was treated for pneumonia. He has another day of antibiotics. I will give another course but also will request a CT scan this point because the CT scan will be able to address better those changes that we see on the x-ray specially since they are persistent have not improved since his previous x-ray. He will continue with current respiratory therapy will follow-up in 23 months. Feels any issues prior to that he will call for an earlier assessment. 11/25/2024 the patient is here for pulmonary follow-up visit. He has multiple complaints including his musculoskeletal issues of his leg and his hip and his back. This does bother her in in prevents him from having a good quality of life. Breathing brown he is doing okay. He does use his respiratory medications as prescribed and he has continued with the biologic therapy with good response. He still does have dyspnea on exertion and does has a productive cough. [id number] severity. Because of his ongoing respiratory issues we had requested a CT scan of the chest. It demonstrated that he does have an area of atelectasis in the lingula with what appears to be plugging of a airway. Most likely mucus although can not rule out endobronchial disease. Therefore, we did talk about considering a bronchoscopy. The patient was agreeable to this and therefore will go ahead and request a diagnostic bronchoscopy see if there is anything else does potentially blocking that airway. And while were there we can do some therapeutic cleaning of the airways to remove any mucus plugs that may be affecting his pulmonary capacity. 02/24/2025 the patient is here for pulmonary follow-up visit. Overall he is doing okay. Still complains of significant aches musculoskeletal discomfort after her surgery. He has a hard time walking hard time with his back. His blood pressure was elevated today but it feels like his because he did more walking today and had to be in the car sitting longer and it caused significant amount of pain discomfort. He will have his blood pressure checked again when he goes to his primary care doctor soon. From a respiratory status he is tends to be responding very well to the Dupixent. He continues uses respiratory medications as prescribed. However, he does have increased allergy symptoms. Will go ahead and start him on additional antihistamine therapy. Will follow-up in 6 months. If he has any issues prior to this he will call for an earlier assessment. Was scheduled for bronchoscopy but he had to cancel because other issues. Will go ahead and request a knee additional imaging and we can discuss during the next visit if bronchoscopy is warranted. We will request a repeat CT chest to reassess lingular obstruction. [facility] Medical History (Updated 12/19/24 @ 12:07 by Sharif Jacques) Atelectasis of left lung Abnormal chest x-ray Dyslipidemia Uncontrolled type 2 diabetes mellitus with hyperglycemia, with long-term current use of insulin Chronic allergic rhinitis Diabetes Complex regional pain syndrome I Deficient knowledge of leg surgery home care Sinusitis Pre-op evaluation Methadone use GERD (gastroesophageal reflux disease) History of kidney stones Internal and external bleeding hemorrhoids Severe persistent asthma Sciatica Arthritis Anemia Hiatal hernia Dysphagia Hepatitis C COPD (chronic obstructive pulmonary disease) HTN (hypertension) History of drug abuse Cellulitis Surgical History (Updated 12/16/24 @ 12:56 by Gillian Oro RN) History of ERCP History of common bile duct surgery History of hemorrhoidectomy Hx of endoscopy History of colonoscopy History of laparoscopy History of appendectomy Family History Father Diabetes Hypertension Mother Hypertension Social History Housing: Apartment Are you a primary tree care foreman to a significant other at home: No Do you presently have visiting nurse or other home services: No Alcohol intake: never Comment: cramping, relieved partially after using bathroom Patient Tobacco Use Status: Former Tobacco user Tobacco use type: Cigarette e-Cigarette/Vaping Use: Never Used Second Hand Smoke Exposure: No Substance Use Type: Opiates service: No Current occupational status: unemployed Current occupational exposures/hazards: No Cognitive needs: No Hearing needs: No Vision needs: Yes Review of Systems Const Denies chills, Denies fever(s) and Denies headache(s) ENT Denies headache(s), Reports epistaxis, Reports nasal congestion, Reports nasal discharge, Reports nasal obstruction, Reports post nasal drip, Reports sinus pain and Reports sinus pressure Card Denies chest pain Resp Denies change in phlegm color, Reports cough and Reports wheezing GI Denies change in bowel habits and Reports constipation Denies hematuria and Denies difficulty urinating Musc Reports abnormal gait, Denies back pain, Reports arthralgias, Reports joint swelling and Reports limited range of motion Neuro Reports abnormal gait, Denies headache(s), Denies focal weakness and Denies convulsions Psych Denies depression, Reports irritability (upset) and Denies mood swings Irving/Lymph Denies lymphadenopathy Aller/Immun Reports wheezing Physical Exam Vital Signs: Last Vital Signs Pulse 122 H 02/24/25 14:38 BP 170/104 H 02/24/25 14:38 Pulse Ox 96 02/24/25 14:38 Oxygen Delivery Method Room Air 02/24/25 14:38 BMI result Body Mass Index 35.4 Const General: alert HEENT Head: Yes other (has a mask) Neck Neck: Yes normal visual inspection, Yes full ROM and Yes no lymphadenopathy Chest Chest palpation & inspection: normal inspection of the chest Resp Effort & Inspection: normal respiratory effort Auscultation: diminished lung sounds Cardio Rate: tachycardic Rhythm: regular rhythm Heart sounds: S1 normal heart sound present and S2 normal heart sound present GI Palpation (GI): Soft to palpation and nontender Auscultation: normal bowel sounds Results Reviewed Results Reviewed: [id number] [place] [address] CT Scan Report Signed Patient: Eva Cuevas MR#: [id number] : 01/10/1938 Acct:[id number] Age/Sex: 87 / F ADM Date: 02/16/25 Loc: .CT Attending Dr: Shadi Dover MD Ordering Physician: Shadi Dover MD Date of Service: 02/16/25 Procedure(s): CT angio chest PE protocol Accession Number(s): [id number] cc: Shadi Dover MD~ Report Number: [id number]: Total DLP = 166.00 mGy-cm EXAMINATION: CT ANGIOGRAM CHEST CLINICAL INFORMATION: Other nonspecific abnormal finding of lung field. 87-year-old female. COMPARISON: No prior chest CT available. TECHNIQUE: Multiple axial images were obtained through the chest after the administration of 65 mL of Omnipaque 350 intravenous contrast. Extensive vascular post-processing including two-dimensional and three-dimensional reformatted images were created and reviewed on an independent workstation. This CT examination was performed using dose optimization techniques as appropriate, variously including the following: *Automated exposure control *Adjustment of mA and/or kV according to patient size (this includes techniques or standardized protocols for targeted exams where dose is matched to indication/reason for exam; i.e. extremities or head) *Use of iterative reconstruction technique FINDINGS: VASCULAR: The study quality is diagnostic. There is no evidence of pulmonary embolus present. The main pulmonary artery is normal in size. There is mild cardiac enlargement. There is no right heart strain, and there is no reflux of contrast into the IVC. Dual-lead pacer device in place in the left hemithorax, leads extending into the right atrium and right ventricle. The aorta is nonaneurysmal. There is mild to moderate calcific atheromatous disease present. There is no evidence of acute aortic syndrome. Great vessels branch normally. There is heavy calcification just after the ostium of the left subclavian artery with approximately 60% focal stenosis present (series 7, image 28). LUNGS: There is mosaic attenuation within the lower lobes, particularly notable in the left lower lobe. This is not entirely specific, but most likely relates to air trapping. Mild associated small airway thickening noted, especially in the lower lobe distributions. There are a numerous scattered groundglass nodules in the upper lobes. For example, a 4 mm groundglass nodule in the central right upper lobe (series 6, image 25) is present. A similar 4 mm groundglass nodule is present in the left upper lobe (series 6, image 26). A 9 mm groundglass nodule is present in the posterior left upper lobe (series 6, image 32). Several additional smaller groundglass nodules are present in the upper lobes. A 3 mm solid nodule is present in the left apex (series 6, image 18). There are no effusions and there is no pneumothorax. There is no consolidative pneumonia. MEDIASTINUM: Normal thyroid. No adenopathy or mass. No pericardial effusion. Mildly patulous esophagus, nonspecific. CHEST WALL: Left-sided pacer generator noted in place. No adenopathy or mass. IMAGED UPPER ABDOMEN: There is a lobular 3.3 cm cyst in segment 3 of the liver. Liver, gallbladder, and remainder the imaged upper abdominal structures appear normal. OSSEOUS STRUCTURES: CT/CT angio chest PE protocol IMPRESSION: 1. There is no evidence of pulmonary embolus or right heart strain. There is no evidence of acute aortic syndrome or aneurysm. 2. There is mild cardiac enlargement present. 3. There are numerous upper lobe pure groundglass nodules measuring up to 9 mm, most likely inflammatory or infectious in etiology. Attention on short interval follow-up imaging recommended. 4. There is mosaic attenuation in the lower lobes, most notable left lower lobe, most likely on the basis of air trapping. Differential includes constrictive (obliterative) bronchiolitis, hypersensitivity pneumonitis, as well as less commonly bronchial asthma, and vasculitis. 5. Left-sided dual-lead pacer. 6. Additional ancillary findings as discussed in the body of the report. 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: Assessment & Plan Assessment & Plan (1) Abnormal chest x-ray: Code(s): R93.89 - Abnormal findings on diagnostic imaging of other specified body structures Category: Medical (2) Asthma: Code(s): J45.909 - Unspecified asthma, uncomplicated Category: Medical Qualifiers: Asthma complication type: uncomplicated Asthma persistence: persistent Asthma severity: severe Qualified Code(s): J45.50 - Severe persistent asthma, uncomplicated (3) GERD (gastroesophageal reflux disease): Code(s): K21.9 - Gastro-esophageal reflux disease without esophagitis Category: Medical Qualifiers: Esophagitis presence: without esophagitis Qualified Code(s): K21.9 - Gastro-esophageal reflux disease without esophagitis (4) Chronic allergic rhinitis: Code(s): J30.9 - Allergic rhinitis, unspecified Category: Medical (5) Atelectasis of left lung: Code(s): J98.11 - Atelectasis Category: Medical Plan Plan for bronchoscopy to assess plugged airway, r/o endobronchial disease if CT chest continued obstructed continue Dupixent 300mg [id number] Continue allergy therapy: singulair and zyrtec continue Duonebs as needed continue Advair HFA 230/21 2 puff BID reflux diet allergy therapy f/U 4-6 months Orders: Orders CT chest wo IV con 2 Months J18.9 - Pneumonia, unspecified organism Medications: New fexofenadine (Hue Hives) 180 mg PO DAILY 30 tabs 6RF 30 days famotidine (Pepcid) 40 mg PO BEDTIME 30 tabs 3RF Coding Level of Care Code Est Pt Level 4 (77918) Complex EM visit Add On G2211 Diagnoses Abnormal chest x-ray R93.89 Severe persistent asthma without complication J45.50 Asthma complication type: uncomplicated Asthma persistence: persistent Asthma severity: severe Gastroesophageal reflux disease without esophagitis K21.9 Esophagitis presence: without esophagitis Chronic allergic rhinitis J30.9 Atelectasis of left lung J98.11 Time Spent (min) 17
--- OUTSIDE RECORDS SUMMARY | 2025-02-24 17:27 | XMS_ITS | Clinical Summary ---
Author Organization [facility] Address [address] [place] [address] Care Team Providers Care Devulcanizer Head Name Role Phone Unavailable Primary Care Provider [...] 92 11/15/2016 3:14 PM EDT Temperature 36.5 C (97.7 F) 11/15/2016 3:13 PM EDT Respiratory Rate 20 11/15/2016 3:13 PM EDT [...] ( - 2023-2 5 season) 2024 Influenza (Season Ended) 2025 HPV Vaccine Aged Out No longer eligi [...] to complete this topic Insurance [facility] FFS ONE CARE
== END 2025-02-24 15:02 | disposition home or self-care (01) ==
LOC: HO.HPS 14:19
PROVIDERS: PCP Family Medicine; Visit Provider Hospitalist
DX: R93.89 Abnormal findings on diagnostic imaging of other specified body structures (principal); J45.50 Severe persistent asthma, uncomplicated; K21.9 Gastro-esophageal reflux disease without esophagitis; J30.9 Allergic rhinitis, unspecified; J98.11 Atelectasis
CPT/HCPCS: 99214; G2211

== ENCOUNTER → 2025-02-24 14:18 | Outpatient (BNVA) | payer OTHER, SELFPAY | PROVIDERS: PCP Family Medicine; Visit Provider Hospitalist | DX: J45.50 Severe persistent asthma, uncomplicated (principal); K21.9 Gastro-esophageal reflux disease without esophagitis; J30.9 Allergic rhinitis, unspecified; R93.89 Abnormal findings on diagnostic imaging of other specified body structures | CPT/HCPCS: 99212 ==

== ENCOUNTER 2025-04-27 14:25 | Outpatient (AMB) | payer OTHER, SELFPAY ==
--- NOTE | 2025-04-27 14:32 | A.OFFVIS_ITS ---
Vital Signs 04/27/25 14:34 Height 5 ft 7 in Weight 218 lb 4.122 oz BMI 34.2 Blood Pressure Location Lt brachial Position Sitting Intake Visit Reasons: follow up Intake Note: Kale presents in the office as a follow up. CC: He states that he is having issues with his hip at the moment. Wants to discuss weening off Ozempic to have his procedure. He is having BMs not as much as he would like but it is something. [employer] Clerk Required: No Allergies milk (MILK) Allergy (Severe, Verified 04/27/25 14:36) enterocolitis clindamycin Allergy (Intermediate, Verified 04/27/25 14:36) Vomiting wheat (WHEAT) Allergy (Intermediate, Verified 04/27/25 14:36) enterocolitis amoxicillin (From AUGMENTIN) Adverse Reaction (Intermediate, Verified 04/27/25 14:36) N/V clavulanic acid (From AUGMENTIN) Adverse Reaction (Intermediate, Verified 04/27/25 14:36) N/V corn Adverse Reaction (Mild, Verified 04/27/25 14:36) Nausea and Vomiting NSAIDS (Non-Steroidal Anti-Inflamma (NSAIDS) Adverse Reaction (Mild, Verified 04/27/25 14:36) ULCERS oats Adverse Reaction (Mild, Verified 04/27/25 14:36) Abdominal Pain HPI HPI follow up: Details: 55 yr old here for f/u RECAP: His main complaint on initial presentation was epigastric pain, goes into the back like a stake going on for 2 yrs food makes pain worse, feels like gets stuck in epigastrium, ok with soup present daily comes and goes nausea and vomit which is food remnants, sometimes sees fresh blood has loose stools 2-3/week sometimes sees blood mixed with stool, going on for 2-3 yrs no grease in stool he does sniff heroin, 2-3 times a week on average no alcohol intake or other drugs he had colonoscopy 2010 and was pos for hemorrhoids had EGD same time, was normal per him never treated for hep c labs reviewed on [facility] CT imaging 03/2019- scarring noted in midline, some inguinal hernias, gastric distention. RAST with wheat and cow milk allergy, histamine mild elevated IgE- >1200 rechecked rast again and pos for oats and corn, dog dander did have egd/colonoscopy [facility] 2019 had felt 30-40% improved after avoiding allergens and medications he completed mavyret, f/u with pulmonology and allergy teams still on methadone commenced on biologic--dupixent Hep C PCR neg at 12 weeks, so cured EGD-- hiatal hernia 4 cm, esophagitis, savary dilation Cte-- no small bowel pathology or other obvious pathology GES-- 09/2019--normal, but actually rapid emptying capsule x 2 not able to visualize past the stomach even though GES nml He was given levsin and tigan due to persistent sx tigan had helped nausea, was awaiitng levsin still had ongoing sx with upper abdo pain, stabbing sensation, trouble swallowing solids sometimes, weight going up, appetite is good REPT EGD with VCE-- gastritis, VCE with possible chylous cyst at 1 hr 30 min but looked abn with protuberance and erythema, stippled appearance, uncertain if really polyp or submucosal nodule EGD done 06/2020--with dilation, ridging of esophagus, gastritis HE was referred to [facility] and he was being followed up there, he had repeat EGD, colonoscopy, I don;t have results of bx he was pending a small bowel enteroscopy per the last note I saw but it seemed to have not been ordered so I ended up doing it at [place] on 09/07/20 but it was negative with no masses or worrying lesions noted. 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 I ordered a KUB for him due to abdominal pain and constipation 08/23--moderate stool volume I also ordered a Ct enterogram 12/2021 which only showed a dilated CBD and fatty liver MRCP: CBD dilated, ?filling defects, GB polyps, steatosis, He had ERCP 05/2022, v bulbous ampulla--opened with sphincterotomy EGD: 06/2022: stent removal erosive duodenitis esophagitis MRI L/S--- discogenic changes L5-S1, bulging disc noted INTERIM: He has ongoing issues with his back and hip he yanez sbeen having 6 weeks of front left foot pain, since a recent fall, also pain in left hip, constipation is variable, but manageable still taking ozempic his GI issues are overshadowed right now by his MS pains EXAM: GENERAL: The patient is well developed and nontoxic. VITAL SIGNS:see workflow HEENT: Nonicteric sclerae, PERRLA, EOMI. Oropharynx clear. Moist mucous membranes. Conjunctivae appear well perfused. No thyroid mass. CHEST: Chest wall is nontender. HEART: Regular rate and rhythm without murmurs. LUNGS: Clear to auscultation bilaterally. ABDOMEN: Soft, positive bowel sounds, nontender, no organomegaly.no flank tenderness SKIN: No rash, no excessive bruising, petechiae, or purpura. NEUROLOGIC: Cranial nerves II-XII intact without motor/sensory deficit. Psych: normal affect MS: poor mobility, using stick, tedner left forefoot and hip area Assessment & Plan (1) Constipation, 2/2 to inactivity, abdominal positioning, and methdone use, Diabetes and ozempic 2/ ZHANG with severe steatosis on MRI- 3/ Left hip and foot pain, PLAN: 1/ ongoing foot and hip pain, will get XR 2/ he will restart trental --didnt get it last time [facility] Medical History Atelectasis of left lung Abnormal chest x-ray Dyslipidemia Uncontrolled type 2 diabetes mellitus with hyperglycemia, with long-term current use of insulin Chronic allergic rhinitis Diabetes Complex regional pain syndrome I Deficient knowledge of leg surgery home care Sinusitis Pre-op evaluation Methadone use GERD (gastroesophageal reflux disease) History of kidney stones Internal and external bleeding hemorrhoids Severe persistent asthma Sciatica Arthritis Anemia Hiatal hernia Dysphagia Hepatitis C COPD (chronic obstructive pulmonary disease) HTN (hypertension) History of drug abuse Cellulitis Surgical History History of ERCP History of common bile duct surgery History of hemorrhoidectomy Hx of endoscopy History of colonoscopy History of laparoscopy History of appendectomy Family History Father Diabetes Hypertension Mother Hypertension Social History Housing: Apartment Are you a primary childcare aide to a significant other at home: No Do you presently have visiting nurse or other home services: No Alcohol intake: never Comment: cramping, relieved partially after using bathroom Patient Tobacco Use Status: Former Tobacco user Tobacco use type: Cigarette e-Cigarette/Vaping Use: Never Used Second Hand Smoke Exposure: No Substance Use Type: Opiates service: No Current occupational status: unemployed Current occupational exposures/hazards: No Cognitive needs: No Hearing needs: No Vision needs: Yes Physical Exam Vital Signs: BMI result Body Mass Index 34.2 Assessment & Plan Assessment & Plan (1) Hip pain: Code(s): M25.559 - Pain in unspecified hip Category: Medical Plan: as above Orders: Orders XR hip LT min 2V 04/27/25 M25.559 - Pain in unspecified hip, M79.673 - Pain in unspecified foot XR foot LT 2V 04/27/25 M25.559 - Pain in unspecified hip, M79.673 - Pain in unspecified foot Medications: New pentoxifylline ER administer with meals 400 mg PO BID 90 tabs 2RF Refilled ondansetron 4 mg PO Q8H PRN 30 tabs 0RF nausea and vomiting 30 days Discontinued polyethylene glycol 3350 (Miralax) Discontinued Reason: Duplicate 17 grams PO DAILY PRN 510 grams 0RF cons tipation prednisone Discontinued Reason: Patient Completed Course PO daily; Take 2 tabs daily x 5 days, then 1 tablet daily x 5 days 10 days 15 tabs 0RF Coding Level of Care Code Est Pt Level 4 (21763) Diagnoses Hip pain M25.559
[2025-04-27 14:34] VITALS: BMI 34.2
--- OUTSIDE RECORDS SUMMARY | 2025-04-27 16:04 | XMS_ITS | Patient Health Record ---
Author Organization [facility] Address [address] [address] Care Team Providers Care News Broadcaster Name Role Phone Good Harper MD Primary Care Provider Kiet Byrd Unavailable [phone] Allergies Allergen (clinical drug ingredient) Drug/Non Drug Allergy documented on EMR Reaction Allergy Type Onset Date Status [place], Wheat, Oats (uncoded) Unknown Allergy Active ibuprofen Advil Unknown Drug Allergy Active Aleve Unknown Drug Allergy Active amoxicillin / clavulanate Augmentin Unknown Drug Allergy Active Motrin Unknown Drug Allergy Active Results Component Value Reference Range Notes HEMOGLOBIN A1C (GLYCOHEMOGLO BIN) Reviewed date:09/08/2024 01:29:51 PM Interpretation: Performing Lab: Notes/Report: HEMOGLOBIN A1C % (HH) 6.5 HEMOGLOBIN A1C (GLYCOHEMOGLO BIN) Reviewed date:12/04/2024 03:01:48 PM Interpretation: Performing Lab: Notes/Report: HEMOGLOBIN A1C % (HH) 7.2 Reason For Referral No Information Medications Medication SIG (Take, Route, Frequency, Duration) Notes Start Date End Date Status Betamethasone Dipropionate 0.05 % APPLY TO THE AFFECTED AREAS ON THE LEGS TWICE DAILY FOR 2 WEEKS, BREAK ONE WEEK USE VASELINE, REPEAT External; Duration: 30 Not-Takin g Prednisone Not-Takin g Physical Therapy . . . 2-3x/week; Duration: 3-4 weeks 04/28/2020 Not-Taking traMADol HCl Not-Ha ing Z Pac Not-Taking Cetirizine HCl 10 MG TAKE 1 TABLET BY DE UT EVERY DAY Oral; Duration: 90 Not-Taking Budesonide 0.5 MG/2ML INHALE 1 VIAL VIA NEBULIZER TWICE A DAY Inhalation; Duration: 90 Not-Taking Nightsplint . . . AFO - L1930; Duration: . Not-Taking Losartan Potassium-HCTZ Not-Taking Ozempic 25 units Active Clotrimazole 1 % 1 APPLICATION TWICE A DAY EXTERNALLY 7 DAY(S) External; Duration: 30 Not-Taking Albuterol Active hydrOXYzine HCl 25 MG TAKE 1 TABLET BY M OUTH EVERY 8 HOURS NEEDED Oral; Duration: 30 Not-Taking Doxycycline Hyclate 100 MG TAKE 1 CAPSULE BY MOUTH TWICE A DAY FOR 7 DAYS Oral; Duration: 7 Not-Taking Lisinopril 30 MG 1 tablet Orally Once a day Active Montelukast Sodium 10 MG 1 tablet Orally Once a day Active Atorvastatin Calcium 20 MG 1 tablet Orally Once a day Active Omeprazole 20 MG 1 capsule 30 minutes before morning meal Orally Once a day Active Dupixent 300 MG/2ML as directed Subcutaneous Active Sucralfate 1 GM/10ML 10 ML ON AN EMPTY STOMACH TWICE A DAY ORALLY 30 DAY(S) Oral; Duration: 30 Not-Taking Lantus 20 units Active predniSONE 10 MG TAKE SIX TABLETS SANTY LY FOR THREE DAYS, THEN GO DOWN BY 1 TABLET EVERY THREE DAYS TOTAL OF 18 DAYS Oral; Duration: 18 Not-Taking Magnesium 1000mg Active NovoLOG 30 units Active Ammonium Lactate 12 % 1 application Externally to affected areas of dry skin to feet except for between the toes Twice a day; Duration: 30 days Active Extra Depth Orthopedic Shoes, (1) Pair With (3) Pair Custom Heat Molded Multidensity Innersoles Dx: NIDDM/PVD(E11.51), Hammertoe Foot Deformity(M20.41,M20.4 2), Preulcerative Skin Lesion(s)(L85.1) Wear Daily; Duration: 365 days 06/02/2024 Active Immunizations Vaccine Route Administration Date Status Comme nts Influenza Unknown 05/04/2024 Administered Social History Tobacco Use: Social History Observation [...] Problem Acquired hammer toe of right foot ([id number] 105) Other hammer toe(s) (acquired), right foot (M20.41) Active confirmed Response to treatment,I mprovement Problem Other hammer toe(s) (acquired), left foot (M20.42) Active confirmed Response to treatment,I mprovement Problem Type 2 diabetes mellitus with peripheral angiopathy (363609076) Type 2 diabetes mellitus with diabetic peripheral angiopathy without gangrene (E11.51) Active confirmed Q7(A), Q8(2B), Q9(1B,2C) Vital Signs Blood pressure diastolic 60 mm Hg 03/05/2025 Height 5ft7in in 03/05/2025 Blood pressure systolic 137 mm Hg 03/05/2025 Weight 220 lbs 03/05/2025 BMI 34.45 kg/m2 03/05/2025 Procedures Procedure Date Ordered Date Performed Result Body Sit e 93882-IUAQLLT NAIL, 1-5 06/02/2024 N/A 08311-UCUF SKIN LESIONS, 2 TO 4 06/02/2024 N/A T4345-EOBTEFBT DYSTROPHIC NAILS ANY # 06/02/2024 N/A 08674-OGFXYDN NAIL, 1-5 09/08/2024 N/A 18507-UPZJ SKIN LESIONS, 2 TO 4 09/08/2024 N/A F9366-XBIXUUBX DYSTROPHIC NAILS ANY # 09/08/2024 N/A 80624-GLISPRV NAIL, 1-5 12/04/2024 N/A 44359-NZDT SKIN LESIONS, 2 TO 4 12/04/2024 N/A H4340-MNPJWZPU DYSTROPHIC NAILS ANY # 12/04/2024 N/A 48656-LHZJFBD NAIL, 1-5 03/05/2025 N/A 58716-RHVS SKIN LESIONS, 2 TO 4 03/05/2025 N/A G6992-SUGMFNXT DYSTROPHIC NAILS ANY # 03/05/2025 N/A Encounters Encounter Location Date Provider Diagnosis [facility] [address] 06/02/2024 Kiet Sutherland Type 2 diabetes mellitus with diabetic peripheral angiopathy without gangrene E11.51 ; Tinea unguium B35.1 ; Pain in right toe(s) M79.674 ; Pain in left toe(s) M79.675 ; Other hammer toe(s) (acquired), right foot M20.41 and Other hammer toe(s) (acquired), left foot M20.[address] [address] 09/08/2024 Kiet Sutherland Type 2 diabetes mellitus with diabetic peripheral angiopathy without gangrene E11.51 ; Tinea unguium B35.1 ; Pain in right toe(s) M79.674 ; Pain in left toe(s) M79.675 and Xerosis of skin L85.[address] [address] 12/04/2024 Kiet Sutherland Type 2 diabetes mellitus with diabetic peripheral angiopathy without gangrene E11.51 ; Tinea unguium B35.1 ; Pain in right toe(s) M79.674 ; Pain in left toe(s) M79.675 ; Xerosis of skin L85.3 ; Other hammer toe(s) (acquired), right foot M20.41 and Other hammer toe(s) (acquired), left foot M20.[address] [address] 03/05/2025 Kiet Sutherland Tinea unguium B35.1 ; Type 2 diabetes mellitus with diabetic peripheral angiopathy without gangrene E11.51 ; Pain in right toe(s) M79.674 and Pain in left toe(s) M79.[address] [address] 05/09/2024 Kiet Sutherland [address] [address] 08/20/2024 Kiet Sutherland [address] [address] 10/24/2024 Kiet Sutherland Assessments Encounter Date Diagnosis [...] gangrene (ICD-10 - E11.51) Q7(A), Q8(2B), Q9(1B,2C) 03/05/2025 Tinea unguium (ICD-10 - B35.1) 03/05/2025 Type 2 diabetes mellitus with diabetic peripheral angiopathy without gangrene (ICD-10 - E11.51) Q7(A), Q8(2B), Q9(1B,2C) 12/04/2024 Pain in right toe(s) (ICD-10 - M79.674) 03/05/2025 Pain in right toe(s) (ICD-10 - M79.674) 06/02/2024 Pain in right toe(s) (ICD-10 - M79.674) 09/08/2024 Pain in right toe(s) (ICD-10 - M79.674) 12/04/2024 Pain in left toe(s) (ICD-10 - M79.675) 09/08/2024 Pain in left toe(s) (ICD-10 - M79.675) 06/02/2024 Pain in left toe(s) (ICD-10 - M79.675) 03/05/2025 Pain in left toe(s) (ICD-10 - M79.675) 12/04/2024 Xerosis of skin (ICD-10 - L85.3) 06/02/2024 Other hammer toe(s) (acquired), right foot (ICD-10 - M20.41) Patient Educated with: DIABETIC FOOT CARE INSTRUCTIONS.p df (DIABETIC FOOT CARE INSTRUCTIONS.p df) 09/08/2024 Xerosis of skin (ICD-10 - L85.3) 12/04/2024 Other hammer toe(s) (acquired), right foot (ICD-10 - M20.41) Response to treatment,Impro vement 06/02/2024 Other hammer toe(s) (acquired), left foot (ICD-10 - M20.42) 12/04/2024 Other hammer toe(s) (acquired), left foot (ICD-10 - M20.42) Response to treatment,Impro vement 09/08/2024 Other 12/04/2024 Other Plan Of Treatment Pending Test Test Name Order Date 70845-HBXSJMT NAIL, 1-06/02/2024 36909-ENOLGDI NAIL, 1-5 09/08/2024 66044-JCWJBBB NAIL, 1-5 12/04/2024 54094-BHVSLHN NAIL, 1-5 03/05/2025 13713-FTRI SKIN LESIONS, 2 TO 4 03/05/20 25 59767-DVHT SKIN LESIONS, 2 TO 4 06/02/20 24 42132-UVBN SKIN LESIONS, 2 TO 4 12/05/19 25 53437-QLDG SKIN LESIONS, 2 TO 4 09/08/19 25 R5689-YZIUYFOQ DYSTROPHIC NAILS ANY # V6674-TPXCJXCZ DYSTROPHIC NAILS ANY # T1969-ATQNIWGK DYSTROPHIC NAILS ANY # E4053-HRNSBLIK DYSTROPHIC NAILS ANY # 69905,Z1862-JNO TENDON SHEATH/LIGAMENT 0 03/18/202021110,K0546-MZJ TENDON SHEATH/LIGAMENT 0 04/15/202024560,R5904-ZUS TENDON SHEATH/LIGAMENT 0 04/19/2020 Next Appt Details Provider Name:Kiet V Ena , 06/04/2025 01:45:00 PM, [address] [facility], [place] [address], [place], [address], Insurance Providers Payer Name Payer Address Payer Phone Subscriber Number Group Number Insured Name Patient Relationship to Insured Coverage Start Date Coverage End Date [facility] [employer] Claims [address] [place] [phone] [id number] Kale Zhong Self - patient is the insured Medical (General) History Medical History History ICD Code asthma Back,Hip,and Knee pain Diverticulosis Hypertension Reflux ( GERD) Stomach ulcer Chicken pox Transfusions Diabetes mellitus Surgical History Surgery Date(Month/Year) appendectomy kidney stones stomach surgery Hospitalization History Reason Date(Month/Year) [facility] [place] [facility] [place] 04[place]13/[place] [facility] [place] swelling 03/14/[place] [facility] [place] Sound Raoul Dop Bilateral Lower Extremity 12/05/19 [facility] [place] Bilateral Lower Extremit y 12/17/19 [facility] [place] Left Lower Extremity 12/03 03/22 [facility] [place] Ultra Sound right leg to rule out DVT 01/23/20 [facility] [place] Scan Right Foot, Xray Right foot, 10/31/19
--- OUTSIDE RECORDS SUMMARY | 2025-04-27 16:04 | XMS_ITS | Encounter Summary ---
Author Organization [facility] Address [address] [place] [address] Care Team Providers Care Last Putter Away Name Role Phone Unavailable Primary Care Provider Unavailabl e Reason for Visit * Reason Comments Throat Problem Encounter Details Date Type Department Care Team ([facility] st Contact Info) Description 11/15/2016 [address] [facility] [address] [address] Leah Bonner NP Throat Problem Social History [...] desk rapid strep will be removed from psychiatric by the psychiatric support team. He is placinga ticket as I accidentally resulted the rapid throat test under the wrong patient account. documented in this encounter Plan of Treatment Not on file documented as of this encounter Visit Diagnoses Not on filedocumented in this encounter
--- OUTSIDE RECORDS SUMMARY | 2025-04-27 16:04 | XMS_ITS | Clinical Summary ---
Author Organization [facility] Address [address] [place] [address] Phone Care Team Providers Care Trading Manager Name Role Phone Good Harper MD Primary Care Provider Social History Tobacco Use Types Packs/Day Years Used Date Smoking Tobacco: Never Assessed Education Answer Date Recorded Are you interested in more education? Not on anabel e 10/09/2023 Are you concerned about learning? Not on file 10/09/2023 No 10/09/2023 No 10/09/2023 Digital Access Answer Date Recorded No 10/09/2023 No 10/09/2023 Reliable internet access at home? Not on file 10/09/2023 Device with a working camera? Not on file Sex and Gender Information Value Date Recorded Sex Assigned at Not on file Legal Sex Male 8:33 PM EDT Gender Identity Not on file Sexual Orientation Not on file Plan of Treatment Health Maintenance Due Date Last Done Comments Adult Td,Tdap Booster 1969 LIPID PANEL 1969 DEPRESSION SCREENING 1981 SMOKING Hx and SMOKELESS TOB ACCO SCREENING 1982 HEPATITIS C SCREENING 1987 HIV ONE-TIME SCREENING (18-6 5 YEARS) 1987 COLOGUARD 2014 COLONOSCOPY 2014 COLORECTAL CANCER SCREENING 2014 FIT TEST 2014 FOBT 2014 SIGMOIDOSCOPY 2014 VIRTUAL COLONOSCOPY 2014 PNEUMOCOCCAL VACCINES (50+ y ears) (1 of 1 - PCV) 2019 ZOSTER VACCINES (1 of 2) 2019 COVID-19 VACCINE ( - 2023-2 5 season) 2024 HEPATITIS A VACCINES Aged Out No long er eligible based on patient's age to complete this topic HIB VACCINES Aged Out No longer eligi ble based on patient's age to complete this topic MENINGOCOCCAL VACCINES (ACWY) Aged Out No longer eligible based on patient's age to complete this topic MENINGOCOCCAL VACCINES (B) Aged Out N o longer eligible based on patient's age to complete this topic Medical Devices Not on file Insurance MEDICARE REPLACEMENT MEDICARE REPLACEMENT Y[place] [id number] CARE MEDICARE REPLACEMENT CARE MEDICARE RE[place] [id number] [place] [address] CARE MEDICARE REPLACEMENT Y[place] LEDBETTER [id number] Care Teams Trading Manager Relationship Specialty Start Date End Date Good Harper MD [address] [place] [address] PCP - General Family Medicine 03/27/24 Additional Source Comments The information contained in this document represents components of the legal health record. It is not the complete legal health record.[facility]
--- OUTSIDE RECORDS SUMMARY | 2025-04-27 16:04 | XMS_ITS | Clinical Summary ---
Author Organization [facility] Address [address] [place] [address] Care Team Providers Care Greenkeeper Name Role Phone Unavailable Primary Care Provider [...] - 2023-2 5 season) 2024 Influenza (#1) 2025 HPV Vaccine (No Doses Required) Completed Hep A Aged Out No longer eligi ble based on patient's age to complete this topic Hib Aged Out No longer eligi ble based on patient's age to complete this topic Meningococcal ACWY Aged Out No longer eligible based on patient's age to complete this topic Insurance [address] [place] [address] [facility] FFS ONE CARE
--- OUTSIDE RECORDS SUMMARY | 2025-04-27 16:04 | XMS_ITS | Clinical Summary ---
Author Organization [facility] Address [address] [place] [address] Care Team Providers Care Grill Attendant Name Role Phone Marylu Estrada MD Primary Care Provider [phone] Surgical History Surgery Date Site/Laterality Comments APPENDECTOMY 2010 PROCEDURE: HISTORICAL APPENDECTOMY KIDNEY STONE SURGERY 2010 PROCEDURE: CA NEPHROLITHOTOMY REMOVAL CALCULUS HEMORRHOID SURGERY 2010 PROCEDURE: DESTRUCTION OF HEMORRHOIDS COLONOSCOPY 08/14/12 [facility] PROCEDURE: HISTORICAL COLONOSCOPY; COMMENT: hemorrhoids; repeat under propofol in ten yrs ESOPHAGOGASTRODUODENOSCOPY 08/14/12 [facility] PROCEDURE: CA ESOPHAGOGASTRODUODENOSCOPY TRANSORAL DIAGNOSTIC; COMMENT: Hiatus hernia Medical History Medical History Date Comments Asthma DX:Asthma; COMME NT: Frequent hospitalizations GI bleed DX:GI bleed; COM MENT: 99 - 4 untis - NSAID Abdominal pain DX:Abdominal christen n Opiate dependence (CMS/HCC V 24, CMS/HCC V28) 03/28/2012 DX:Opiate dependence ([facility]) Boxer's fracture DX:Boxer's frac ture [...] Panel) 08/28/2023 Colorectal Cancer Screening: Colonoscopy 08/28/2023 HIV Screening 08/28/2023 Hepatitis C Screening 08/28/2023 Social Influencers of Health Screening 08/28/2023 COVID-19 Vaccine (1 - 2023-2 5 season) 2024 Depression Screening 09/03/2024 Influenza Vaccine (#1) 2025 HIB Vaccines Aged Out No longer [...] age to complete this topic Care Teams Grill Attendant Relationship Specialty Start Date End Date Marylu Estrada MD [address] [place] [address] PCP - General Internal Medicine 10/01/12
== END 2025-04-27 15:19 | disposition home or self-care (01) ==
LOC: HO.HGI 14:26
PROVIDERS: PCP Family Medicine; Visit Provider Internal Medicine Gastroenterology
DX: M25.552 Pain in left hip (principal)
CPT/HCPCS: 99214

== ENCOUNTER → 2025-04-27 14:25 | Outpatient (BNVA) | payer OTHER, SELFPAY | PROVIDERS: PCP Family Medicine; Visit Provider Internal Medicine Gastroenterology | DX: M25.552 Pain in left hip (principal); M79.672 Pain in left foot; K59.00 Constipation, unspecified | CPT/HCPCS: 99212 ==

== ENCOUNTER 2025-04-30 08:20 | Outpatient (REF) | payer OTHER, SELFPAY ==
--- NOTE | ~2025-04-30 | XR_ITS ---
EXAMINATION: XR HIP 2 OR MORE VIEWS LEFT HISTORY: M79.673 - Pain in unspecified hip COMPARISON: Comparison is made with the prior examination dated 08/13/2024. FINDINGS: Two views of the left hip are submitted. Osseous mineralization is normal. There is no fracture or dislocation. There is mild to moderate joint space narrowing. The soft tissues are unremarkable. XR/XR hip LT min 2V IMPRESSION: Mild to moderate joint space narrowing. Electronically signed by: Sigifredo Box MD 04/30/2025 09:01 AM EDT
--- NOTE | ~2025-04-30 | XR_ITS ---
EXAMINATION: XR FOOT 3 OR MORE VIEWS LEFT HISTORY: M25.559 - Pain in unspecified foot COMPARISON: There are no prior studies available for comparison. FINDINGS: Three views of the left foot are submitted. Osseous mineralization is normal. There is no fracture or dislocation. The joint spaces are preserved. There is a small plantar calcaneal spur. The soft tissues are unremarkable. XR/XR foot LT min 3V IMPRESSION: Small plantar calcaneal spur. Otherwise unremarkable examination of the left foot. Electronically signed by: Sigifredo Box MD 04/30/2025 09:02 AM EDT
--- OUTSIDE RECORDS SUMMARY | 2025-04-30 08:54 | XMS_ITS | Patient Health Record ---
Author Organization [facility] Address [address] [facility] [place] [address] Care Team Providers Care Pension Adviser Name Role Phone Good Harper MD Primary Care Provider Kiet Byrd Unavailable [phone] Allergies Allergen (clinical drug ingredient) Drug/Non Drug Allergy documented on EMR Reaction Allergy Type Onset Date Status [place], Wheat, Oats (uncoded) Unknown Allergy Active ibuprofen [...] HCl 10 MG TAKE 1 TABLET BY OR UT EVERY DAY Oral; Duration: 90 Not-Taking [...] Problem Acquired hammer toe of right foot (1656784049909 105) Other hammer toe(s) (acquired), right foot (M20.41) Active confirmed Response to treatment,I mprovement Problem Acquired hammer toe of left foot (7165518071668 103) Other hammer toe(s) (acquired), left foot (M20.42) Active confirmed Response to treatment,I mprovement Problem Type 2 diabetes mellitus with peripheral angiopathy (012916037) Type 2 diabetes mellitus with diabetic peripheral angiopathy without gangrene (E11.51) Active confirmed Q7(A), Q8(2B), Q9(1B,2C) Vital Signs Blood pressure diastolic 60 mm Hg 03/05/2025 Height 5ft7in in 03/05/2025 Blood pressure systolic 137 mm Hg 03/05/2025 Weight 220 lbs 03/05/2025 BMI 34.45 kg/m2 03/05/2025 Procedures Procedure Date Ordered Date Performed Result Body Sit e 40827-MGNEAIP NAIL, 1-5 06/02/2024 N/A 95534-VBIG SKIN LESIONS, 2 TO 4 06/02/2024 N/A Y5734-OYWKTIYE DYSTROPHIC NAILS ANY # 06/02/2024 N/A 69034-SBMJRBQ NAIL, 1-5 09/08/2024 N/A 56689-AFUD SKIN LESIONS, 2 TO 4 09/08/2024 N/A I6233-TVDIAAKZ DYSTROPHIC NAILS ANY # 09/08/2024 N/A 06745-NCNGZNL NAIL, 1-5 12/04/2024 N/A 71079-SRQI SKIN LESIONS, 2 TO 4 12/04/2024 N/A S4389-MALJZCOV DYSTROPHIC NAILS ANY # 12/04/2024 N/A 10092-JIXCCKM NAIL, 1-5 03/05/2025 N/A 02780-RCFO SKIN LESIONS, 2 TO 4 03/05/2025 N/A K6935-YSCIQFDK DYSTROPHIC NAILS ANY # 03/05/2025 N/A Encounters Encounter Location Date Provider Diagnosis [facility] [address] [address] 06/02/2024 Kiet Sutherland Type 2 diabetes mellitus with diabetic peripheral angiopathy without gangrene E11.51 ; Tinea unguium B35.1 ; Pain in right toe(s) M79.674 ; Pain in left toe(s) M79.675 ; Other hammer toe(s) (acquired), right foot M20.41 and Other hammer toe(s) (acquired), left foot M20.[address] [address] 09/08/2024 Kiet Sutherland Type 2 diabetes mellitus with diabetic peripheral angiopathy without gangrene E11.51 ; Tinea unguium B35.1 ; Pain in right toe(s) M79.674 ; Pain in left toe(s) M79.675 and Xerosis of skin L85.[address] [address] 12/04/2024 Kiet Sutherland Type 2 diabetes mellitus with diabetic peripheral angiopathy without gangrene E11.51 ; Tinea unguium B35.1 ; Pain in right toe(s) M79.674 ; Pain in left toe(s) M79.675 ; Xerosis of skin L85.3 ; Other hammer toe(s) (acquired), right foot M20.41 and Other hammer toe(s) (acquired), left foot M20.[address] [address] 03/05/2025 Kiet Sutherland Tinea unguium B35.1 ; Type 2 diabetes mellitus with diabetic peripheral angiopathy without gangrene E11.51 ; Pain in right toe(s) M79.674 and Pain in left toe(s) M79.[address] [address] 05/09/2024 Kiet Sutherland [address] [address] 08/20/2024 Kiet Sutherland [address] [address] 10/24/2024 Kiet Sutherland Assessments Encounter Date Diagnosis [...] 12/04/2024 Xerosis of skin (ICD-10 - L85.3) 09/08/2024 Xerosis of skin (ICD-10 - L85.3) [...] Treatment Pending Test Test Name Order Date 34053-OMESSXR NAIL, 1-5 06/02/2024 83148-AFKFOIC NAIL, 1-5 09/08/2024 54600-SUKJNBR NAIL, 1-5 12/04/2024 01913-LRBYWEB NAIL, 1-5 03/05/2025 65377-QAYP SKIN LESIONS, 2 TO 4 03/05/20 25 44709-BSZX SKIN LESIONS, 2 TO 4 06/02/20 24 28532-VRPQ SKIN LESIONS, 2 TO 4 12/05/19 25 89781-DZGK SKIN LESIONS, 2 TO 4 09/08/19 25 Z2907-XOQDPCDO DYSTROPHIC NAILS ANY # U3522-RKXCLWKP DYSTROPHIC NAILS ANY # U9684-QSNNMGEG DYSTROPHIC NAILS ANY # Z3288-NAKUKPKS DYSTROPHIC NAILS ANY # 08872,N3206-GLT TENDON SHEATH/LIGAMENT 0 03/18/202096145,C2308-CKG TENDON SHEATH/LIGAMENT 0 04/15/202006974,B1579-JHR TENDON SHEATH/LIGAMENT 0 04/19/2020 Next Appt Details Provider Name:Kiet Parks Ean , 06/04/2025 01:45:00 PM, [address] [facility], [address], [place], [address], Insurance Providers Payer Name Payer Address Payer Phone Subscriber Number Group Number Insured Name Patient Relationship to Insured Coverage Start Date Coverage End Date [facility] SCO Claims [address] [place] [id number] [phone] [id number] Kale Zhong Self - patient is the insured Medical (General) History Medical History History ICD Code asthma Back,Hip,and Knee pain Diverticulosis Hypertension Reflux ( GERD) Stomach ulcer Chicken pox Transfusions Diabetes mellitus Surgical History Surgery Date(Month/Year) appendectomy kidney stones stomach surgery Hospitalization History Reason Date(Month/Year) [facility] 04/23/20 [facility] ER can't walk 04/13/20 [facility] ER Foot swelling 03/14/20 [facility] Ultra Sound Roaul Dop Bilateral Lower Extremity 12/05/19 [facility] Ultra Sound Bilateral Lower Extremit y 12/17/19 [facility] Ultra Sound Left Lower Extremity 12/03 03/22 [facility] Venous Ultra Sound right leg to rule out DVT 01/23/20 [facility] CT Scan Right Foot, Xray Right foot, 10/31/19
--- OUTSIDE RECORDS SUMMARY | 2025-04-30 08:54 | XMS_ITS | Encounter Summary ---
Author Organization [facility] Address [address] [place] [address] Care Team Providers Care Health Information Administrator Name Role Phone Unavailable Primary Care Provider Unavailabl e Reason for Visit * Reason Comments Throat Problem Encounter Details Date Type Department Care Team ([facility] st Contact Info) Description 11/15/2016 [address] [facility] [address] [address] Leah Bonner NP Throat Problem Social History [...] desk rapid strep will be removed from [facility] by the [facility] support team. He is placinga ticket as I accidentally resulted the rapid throat test under the wrong patient account. documented in this encounter Plan of Treatment Not on file documented as of this encounter Visit Diagnoses Not on filedocumented in this encounter
--- OUTSIDE RECORDS SUMMARY | 2025-04-30 08:54 | XMS_ITS | Clinical Summary ---
Author Organization [facility] Address [address] [facility] [address] [place] [address] Phone Care Team Providers Care Component Engineer Name Role Phone Good Harper MD [...] on file Insurance MEDICARE REPLACEMENT MEDICARE REPLACEMENT [id number] [id number] CARE MEDICARE REPLACEMENT CARE MEDICARE RE[place] [id number] [place] [address] CARE MEDICARE REPLACEMENT Y[place] LEDBETTER [id number] Care Teams Component Engineer Relationship Specialty Start Date End Date Good Harper MD [address] [place] [address] PCP - General Family Medicine 03/27/24 Additional Source Comments The information contained in this document represents components of the legal health record. It is not the complete legal health record.[facility]
--- OUTSIDE RECORDS SUMMARY | 2025-04-30 08:54 | XMS_ITS | Clinical Summary ---
Author Organization [facility] Address [address] [place] [address] Care Team Providers Care Aerographer Name Role Phone Unavailable Primary Care Provider [...] this topic Insurance [address] [place] [address] [facility] FFS ONE CARE
--- OUTSIDE RECORDS SUMMARY | 2025-04-30 08:54 | XMS_ITS | Clinical Summary ---
Author Organization [facility] Address [address] [place] [address] Care Team Providers Care Collection Coordinator Name Role Phone Marylu Estrada MD Primary Care Provider [phone] Surgical History Surgery Date Site/Laterality Comments APPENDECTOMY 2010 PROCEDURE: HISTORICAL APPENDECTOMY KIDNEY STONE SURGERY 2010 PROCEDURE: [place] NEPHROLITHOTOMY REMOVAL CALCULUS HEMORRHOID SURGERY 2010 PROCEDURE: DESTRUCTION OF HEMORRHOIDS COLONOSCOPY 08/14/12 [facility] PROCEDURE: HISTORICAL COLONOSCOPY; COMMENT: hemorrhoids; repeat under propofol in ten yrs ESOPHAGOGASTRODUODENOSCOPY 08/14/12 [facility] PROCEDURE: [place] ESOPHAGOGASTRODUODENOSCOPY TRANSORAL DIAGNOSTIC; COMMENT: Hiatus hernia Medical History Medical History Date Comments Asthma DX:Asthma; COMME NT: Frequent hospitalizations GI bleed DX:GI bleed; COM MENT: 99 - 4 untis - NSAID Abdominal pain DX:Abdominal christen n Opiate dependence (CMS/HCC V 24, CMS/HCC V28) 03/28/2012 DX:Opiate dependence ([facility]) Boxer's fracture DX:Boxer's frac ture Nephrolithiasis DX:Nephrolithias [...] age to complete this topic Care Teams Collection Coordinator Relationship Specialty Start Date End Date Marylu Estrada MD [address] [place] [address] PCP - General Internal Medicine 10/01/12
== END 2025-04-30 08:21 | disposition home or self-care (01) ==
LOC: HO.XRAY 08:20
PROVIDERS: PCP Family Medicine; Visit Provider Internal Medicine Gastroenterology
DX: M79.672 Pain in left foot (principal); M25.552 Pain in left hip
CPT/HCPCS: 73502; 73630

== ENCOUNTER → 2025-04-30 08:26 | Outpatient (BNV) | payer OTHER, SELFPAY | PROVIDERS: PCP Family Medicine; Visit Provider Radiology Diagnostic Radiology | DX: M25.552 Pain in left hip (principal); M25.852 Other specified joint disorders, left hip; M79.672 Pain in left foot; M77.32 Calcaneal spur, left foot | CPT/HCPCS: 73502; 73630 ==

== ENCOUNTER 2025-05-01 14:43 | Outpatient (AMB) | payer OTHER, SELFPAY ==
--- OUTSIDE RECORDS SUMMARY | 2025-05-01 14:47 | XMS_ITS | Clinical Summary ---
Author Organization [facility] Address [address] [place] [address] Care Team Providers Care Permaculture Designer Name Role Phone Marylu Estrada MD Primary Care Provider [phone] Surgical History Surgery Date Site/Laterality Comments APPENDECTOMY 2010 PROCEDURE: HISTORICAL APPENDECTOMY KIDNEY STONE SURGERY 2010 PROCEDURE: IN NEPHROLITHOTOMY REMOVAL CALCULUS HEMORRHOID SURGERY 2010 PROCEDURE: DESTRUCTION OF HEMORRHOIDS COLONOSCOPY 08/14/12 [facility] PROCEDURE: HISTORICAL COLONOSCOPY; COMMENT: hemorrhoids; repeat under propofol in ten yrs ESOPHAGOGASTRODUODENOSCOPY 08/14/12 [facility] PROCEDURE: IN ESOPHAGOGASTRODUODENOSCOPY TRANSORAL DIAGNOSTIC; COMMENT: Hiatus hernia Medical History Medical History Date Comments Asthma DX:Asthma; COMME NT: Frequent hospitalizations GI bleed DX:GI bleed; COM MENT: 99 - 4 untis - NSAID Abdominal pain DX:Abdominal christen n Opiate dependence (CMS/HCC V 24, CMS/HCC V28) 03/28/2012 DX:Opiate dependence ([facility]) Boxer's fracture DX:Boxer's frac ture Nephrolithiasis [...] age to complete this topic Care Teams Permaculture Designer Relationship Specialty Start Date End Date Marylu Estrada MD [address] [place] [address] PCP - General Internal Medicine 10/01/12
--- OUTSIDE RECORDS SUMMARY | 2025-05-01 14:47 | XMS_ITS | Encounter Summary ---
Author Organization [facility] Address [address] [place] [address] Care Team Providers Care Towboat Pilot Name Role Phone Unavailable Primary Care Provider Unavailabl e Reason for Visit * Reason Comments Throat Problem Encounter Details Date Type Department Care Team ([facility] st Contact Info) Description 11/15/2016 Tele[address] [facility] [address] [address] Leah Bonner NP Throat Problem Social History [...] desk rapid strep [facility] support team. He is placinga ticket as I accidentally resulted the rapid throat test under the wrong patient account. documented in this encounter Plan of Treatment Not on file documented as of this encounter Visit Diagnoses Not on filedocumented in this encounter
--- OUTSIDE RECORDS SUMMARY | 2025-05-01 14:47 | XMS_ITS | Clinical Summary ---
Author Organization [facility] Address [address] [facility] [address] [place] [address] Phone Care Team Providers Care Director Counseling Bureau Name Role Phone Good Harper MD Primary [...] file Insurance MEDICARE REPLACEMENT MEDICARE REPLACEMENT YINA [id number] CARE MEDICARE REPLACEMENT CARE MEDICARE [place] [id number] [place] [address] CARE MEDICARE REPLACEMENT Y[place] LEDBETTER [id number] Care Teams Director Counseling Bureau Relationship Specialty Start Date End Date Good Harper MD [address] [place] [address] PCP - General Family Medicine 03/27/24 Additional Source Comments The information contained in this document represents components of the legal health record. It is not the complete legal health record.[facility]
--- OUTSIDE RECORDS SUMMARY | 2025-05-01 14:47 | XMS_ITS | Clinical Summary ---
Author Organization [facility] Address [address] [place] [address] Care Team Providers Care Loan Inspector Name Role Phone Unavailable Primary Care [...] this topic Insurance [address] [place] [address] [facility] FFS ONE CARE
--- OUTSIDE RECORDS SUMMARY | 2025-05-01 14:48 | XMS_ITS | Patient Health Record ---
Author [facility] Address [address] [facility] [place] [address] Care Team Providers Care Tie Layer Name Role Phone Good Harper MD Primary Care Provider Kiet Byrd Unavailable [phone] Allergies Allergen (clinical drug ingredient) Drug/Non Drug Allergy documented on EMR Reaction Allergy Type Onset Date Status [place], Wheat, Oats (uncoded) Unknown Allergy Active ibuprofen [...] HCl 10 MG TAKE 1 TABLET BY PA UT EVERY DAY Oral; Duration: 90 Not-Taking [...] Problem Acquired hammer toe of right foot (8556171258803 105) Other hammer toe(s) (acquired), right foot (M20.41) Active confirmed Response to treatment,I mprovement Problem Acquired hammer toe of left foot (5796119855494 103) Other hammer toe(s) (acquired), left foot (M20.42) Active confirmed Response to treatment,I mprovement Problem Type 2 diabetes mellitus with peripheral angiopathy (240982548) Type 2 diabetes mellitus with diabetic peripheral angiopathy without gangrene (E11.51) Active confirmed Q7(A), Q8(2B), Q9(1B,2C) Vital Signs Blood pressure diastolic 60 mm Hg 03/05/2025 Height 5ft7in in 03/05/2025 Blood pressure systolic 137 mm Hg 03/05/2025 Weight 220 lbs 03/05/2025 BMI 34.45 kg/m2 03/05/2025 Procedures Procedure Date Ordered Date Performed Result Body Sit e 82750-XASFLMR NAIL, 1-5 06/02/2024 N/A 29648-PXCG SKIN LESIONS, 2 TO 4 06/02/2024 N/A F5576-DKIHPMHT DYSTROPHIC NAILS ANY # 06/02/2024 N/A 77445-GJSMHMC NAIL, 1-5 09/08/2024 N/A 49105-LZJY SKIN LESIONS, 2 TO 4 09/08/2024 N/A J3763-RJMISDIA DYSTROPHIC NAILS ANY # 09/08/2024 N/A 50386-DSREBVZ NAIL, 1-5 12/04/2024 N/A 27324-QZEA SKIN LESIONS, 2 TO 4 12/04/2024 N/A Q6370-ZKOUOYAL DYSTROPHIC NAILS ANY # 12/04/2024 N/A 52521-RGEGWLZ NAIL, 1-5 03/05/2025 N/A 76810-HVFI SKIN LESIONS, 2 TO 4 03/05/2025 N/A X8865-BBKIWZAG DYSTROPHIC NAILS ANY # 03/05/2025 N/A Encounters Encounter Location Date Provider Diagnosis [facility] [address] [address] 06/02/2024 Kiet Sutherland Type 2 diabetes mellitus with diabetic peripheral angiopathy without gangrene E11.51 ; Tinea unguium B35.1 ; Pain in right toe(s) M79.674 ; Pain in left toe(s) M79.675 ; Other hammer toe(s) (acquired), right foot M20.41 and Other hammer toe(s) (acquired), left foot M20.[address] [address] 09/08/2024 Kiet Sutherland Type 2 diabetes mellitus with diabetic peripheral angiopathy without gangrene E11.51 ; Tinea unguium B35.1 ; Pain in right toe(s) M79.674 ; Pain in left toe(s) M79.675 and Xerosis of skin L85.[address] [address] 12/04/2024 Kiet Sutherland Type 2 diabetes mellitus with diabetic peripheral angiopathy without gangrene E11.51 ; Tinea unguium B35.1 ; Pain in right toe(s) M79.674 ; Pain in left toe(s) M79.675 ; Xerosis of skin L85.3 ; Other hammer toe(s) (acquired), right foot M20.41 and Other hammer toe(s) (acquired), left foot M20.[address] [address] 03/05/2025 Kiet Sutherland Tinea unguium B35.1 ; Type 2 diabetes mellitus with diabetic peripheral angiopathy without gangrene E11.51 ; Pain in right toe(s) M79.674 and Pain in left toe(s) M79.[address] [address] 05/09/2024 Kiet Sutherland [address] [address] 08/20/2024 Kiet Sutherland [address] [address] 10/24/2024 Kiet Sutherland Assessments Encounter Date Diagnosis [...] Treatment Pending Test Test Name Order Date 54762-AIJAYKS NAIL, 1-5 06/02/2024 10265-PZZVEGY NAIL, 1-5 09/08/2024 82157-OBYNWLA NAIL, 1-5 12/04/2024 23985-YXNORVF NAIL, 1-5 03/05/2025 39701-KTFC SKIN LESIONS, 2 TO 4 03/05/20 25 52350-LEKP SKIN LESIONS, 2 TO 4 06/02/20 24 61743-PXJA SKIN LESIONS, 2 TO 4 12/05/19 25 99148-JOOU SKIN LESIONS, 2 TO 4 09/08/19 25 O2279-RYPLHSLZ DYSTROPHIC NAILS ANY # L5418-CXGAHSFJ DYSTROPHIC NAILS ANY # F3545-OYUBBRGX DYSTROPHIC NAILS ANY # Y0245-FRBHPAPM DYSTROPHIC NAILS ANY # 37523,H1690-XJL TENDON SHEATH/LIGAMENT 0 03/18/202000555,D6011-XKY TENDON SHEATH/LIGAMENT 0 04/15/202091526,T9206-UBR TENDON SHEATH/LIGAMENT 0 04/19/2020 Next Appt Details Provider Name:Kiet Parks Ena , 06/04/2025 01:45:00 PM, [address] [facility], [address], [place], [address], Insurance Providers Payer Name Payer Address Payer Phone Subscriber Number Group Number Insured Name Patient Relationship to Insured Coverage Start Date Coverage End Date [facility] SCO Claims [address] [place] [id number] [phone] [id number] Kale Zhong Self - patient is the insured Medical (General) History Medical History History ICD Code asthma Back,Hip,and Knee pain Diverticulosis Hypertension Reflux ( GERD) Stomach ulcer Chicken pox Transfusions Diabetes mellitus Surgical History Surgery Date(Month/Year) appendectomy kidney stones stomach surgery Hospitalization History Reason Date(Month/Year) [facility] 04/23/20 [facility] ER can't walk 04/13/20 [facility] Foot swelling 03/14/20 [facility] Ultra Sound Raoul Dop Bilateral Lower Extremity 12/05/19 [facility] Ultra Sound Bilateral Lower Extremit y 12/17/19 [facility] Ultra Sound Left Lower Extremity 12/03 03/22 [facility] Venous Ultra Sound right leg to rule out DVT 01/23/20 [facility] Scan Right Foot, Xray Right foot, 10/31/19
--- NOTE | 2025-05-01 14:59 | MHC.OFFVIS ---
Vital Signs 05/01/25 15:00 05/01/25 15:26 Height 5 ft 7 in Weight 224 lb 6.889 oz BMI 35.1 BP 170/110 H 150/96 H Blood Pressure Location Lt brachial Rt brachial Position Sitting Sitting Pulse 117 H Pulse Source Pulse Oximeter Pulse Oximetry (%) 96 Oxygen Delivery Method Room Air Intake Visit Reasons: DMT2 Follow-up Intake Note: Patient presents today for a follow-up on Type 2 Diabetes Mellitus: Last Diabetic eye exam was on: 09/15/2024, [facility] Last Podiatry exam was on: 02/2025 Most recent HbA1c: 6.6% Random Glucose- 135 mg/dL Flexographic Press Helper Required: No Accompanied by: Self / Same As Patient Allergies milk (MILK) Allergy (Severe, Verified 05/01/25 15:06) enterocolitis clindamycin Allergy (Intermediate, Verified 05/01/25 15:06) Vomiting wheat (WHEAT) Allergy (Intermediate, Verified 05/01/25 15:06) enterocolitis amoxicillin (From AUGMENTIN) Adverse Reaction (Intermediate, Verified 05/01/25 15:06) N/V clavulanic acid (From AUGMENTIN) Adverse Reaction (Intermediate, Verified 05/01/25 15:06) N/V corn Adverse Reaction (Mild, Verified 05/01/25 15:06) Nausea and Vomiting NSAIDS (Non-Steroidal Anti-Inflamma (NSAIDS) Adverse Reaction (Mild, Verified 05/01/25 15:06) ULCERS oats Adverse Reaction (Mild, Verified 05/01/25 15:06) Abdominal Pain Medication List - Last Reconciled 05/01/25 by Suzie Motta PA-C albuterol sulfate 2.5 mg (3 mL) inhalation Q6H PRN 30 days albuterol sulfate 90 mcg/actuation 2 puffs inhalation Q6H PRN 30 days atorvastatin 20 mg PO BEDTIME blood pressure monitor Automatic, Digital. Dx: I10. Daily As directed, 999 days/lifetime blood sugar diagnostic (FreeStyle Lite Strips) As directed, to test blood sugar 4 times a day blood-glucose meter (FreeStyle Lite Meter kit) DX: E11.9, test blood sugar 2 times a day, duration 999 days blood-glucose sensor (FreeStyle James 3 Sensor device) Apply every 14 days As directed blood-glucose,granite worker,cont (FreeStyle James 3 [place]) As directed cane Daily As directed. 999 days chlorthalidone 25 mg PO DAILY 30 days crutches (pair of crutches) As directed crutches (pair of crutches) As directed doxycycline hyclate 100 mg PO BID 10 days Dupixent Pen (dupilumab) 300 mg (2 mL) subcut Q2W NS famotidine (Pepcid) 40 mg PO BEDTIME fexofenadine (Hue Hives) 180 mg PO DAILY 30 days mnxhxtdalhe-cususkhqc-yimjmmut 200-62.5-25 mcg (Trelegy Ellipta) 1 inh inhalation DAILY 90 days glucose (Dex4 Glucose) 16 grams (4 x 4 gram) PO Q15M PRN Grab bar As directed, 999 days hydrocodone-acetaminophen 5-325 mg 1 tab PO BID PRN 30 days ipratropium-albuterol 0.5 mg-3 mg(2.5 mg base)/3 mL 3 mL inhalation Q6H PRN lancets (FreeStyle Lancets) As directed lancets (FreeStyle Lancets) As directed bs checks 2-3 times per day Lantus Solostar U-100 Insulin (insulin glargine) 40 units (0.4 mL) subcut QPM NS lisinopril 40 mg PO DAILY magnesium hydroxide (Milk of Magnesia) 20 mL PO DAILY magnesium oxide 500 mg PO BID methadone 40 mg PO DAILY miscellaneous medical supply Hand-held?shower?head,?As directed, 999 days miscellaneous medical supply 2 med planners; 1 urinal; 1 bed red; 1 commode; 2 grab bars for bed miscellaneous medical supply quad cane small base miscellaneous medical supply Toilet?see?raised,?As directed, 999 days montelukast 10 mg PO BEDTIME mupirocin 2% 1 appl topical BID 7 days nebulizers As directed Novolog FlexPen U-100 Insulin (insulin aspart U-100) 30 units (0.3 mL) subcut TID NS omeprazole 20 mg PO DAILY ondansetron 4 mg PO Q8H PRN 30 days peg-electrolyte soln 420 gram 240 mL PO Q10M pen needle, diabetic (BD Lynda 2nd Gen Pen Needle) DIRECTED INJECTS 4 X/DAY pentoxifylline ER 400 mg PO BID Shower Chair Daily As directed, 999 days sodium chloride 0.65% (Saline Nasal) 2 sprays intranasal Q2H PRN sodium phosphates 19-7 gram/118 mL (Fleet Enema) 118 mL MS BEDTIME PRN HPI HPI DMT2 Follow-up: Details: Patient is a 55-year-old male with a significant past medical history of hypertension, type 2 diabetes, ED, dyslipidemia, CKD, chronic pain syndrome, hep C, COPD, methadone use presenting today for a diabetic follow-up. Endo: His last A1c was 7.5% and today it is 6.6. He is on Lantus 20 units at night, NovoLog t.i.d. 15 units, ozempic 1 mg weekly. -he states that he does not always take his insulin as directed. Sometimes if he does the NovoLog and the Lantus to close to bedtime he will get low blood sugars. -He has tried metformin but did not tolerate. He has tried trulicity but did not tolerate due to vomiting. thong and he states it was effective but was getting abdominal pain and nausea with it. CGM-average glucose 168, G mi 7.1%. Very hyperglycemic 2%, hyperglycemic 34%, in range 64%, hypoglycemic 0% He states he has not had any low blood sugars -Last eye exam: end of Sep 2023- states that there were some findings (does not recall name of eye issues) and is seeing retina specialist -Last foot exam: sees Dr. Eastman. CV: blood pressure in the office is 170/110. Repeat blood pressure is 150/96. He states that his blood pressure is only elevated because of the pain and he does not want to treat this. He is taking the lisinopril 30 mg and chlorthalidone 25 mg daily. [facility] Medical History Atelectasis of left lung Abnormal chest x-ray Dyslipidemia Uncontrolled type 2 diabetes mellitus with hyperglycemia, with long-term current use of insulin Chronic allergic rhinitis Diabetes Complex regional pain syndrome I Deficient knowledge of leg surgery home care Sinusitis Pre-op evaluation Methadone use GERD (gastroesophageal reflux disease) History of kidney stones Internal and external bleeding hemorrhoids Severe persistent asthma Sciatica Arthritis Anemia Hiatal hernia Dysphagia Hepatitis C COPD (chronic obstructive pulmonary disease) HTN (hypertension) History of drug abuse Cellulitis Surgical History History of ERCP History of common bile duct surgery History of hemorrhoidectomy Hx of endoscopy History of colonoscopy History of laparoscopy History of appendectomy Family History Father Diabetes Hypertension Mother Hypertension Social History Housing: Apartment Are you a primary career and transition teacher to a significant other at home: No Do you presently have visiting nurse or other home services: No Alcohol intake: never Comment: cramping, relieved partially after using bathroom Patient Tobacco Use Status: Former Tobacco user Tobacco use type: Cigarette e-Cigarette/Vaping Use: Never Used Second Hand Smoke Exposure: No Substance Use Type: Opiates service: No Current occupational status: unemployed Current occupational exposures/hazards: No Cognitive needs: No Hearing needs: No Vision needs: Yes Physical Exam Vital Signs: Last Vital Signs Pulse 117 H 05/01/25 15:00 BP 170/110 H 05/01/25 15:00 Pulse Ox 96 05/01/25 15:00 Oxygen Delivery Method Room Air 05/01/25 15:00 BMI result Body Mass Index 35.1 Const Orientation/consciousness: patient oriented x3 HEENT Ears: hearing grossly normal bilaterally Neck Thyroid: Thyroid normal Lymphatic: no lymphadenopathy noted Resp Auscultation: clear to auscultation bilaterally Cardio Rate: regular rate Rhythm: regular rhythm Heart sounds: S1 normal heart sound present and S2 normal heart sound present Skin General skin exam: no rashes or lesions noted Neuro General: patient oriented x3, gait normal and no focal motor deficits Results AMB Hemoglobin A1c AMB Hemoglobin A1c 6.6 % Last Edit by DAIN Rosas on 05/01/25 15:17 Results Reviewed Results Reviewed: Laboratory Last Values Glucose (Clinic) 135 mg/dL (60-115) H 05/01/25 15:08 Assessment & Plan Assessment & Plan (1) Uncontrolled type 2 diabetes mellitus with hyperglycemia, with long-term current use of insulin: Code(s): E11.65 - Type 2 diabetes mellitus with hyperglycemia; Z79.4 - care home (current) use of insulin Category: Medical Plan: lower novolog to 10 units continue lantus 20 units increase ozempic to 2 mg weekly (2) Uncontrolled hypertension: Code(s): I10 - Essential (primary) hypertension Category: Medical Plan: discussed wanting to add medication but refuses He is completely asymptomatic and states again that this is purely related to the pain and at home his blood pressures are normal. Orders: Orders AMB Hemoglobin A1c Today E11.65 - Type 2 diabetes mellitus with hyperglycemia, Z13.9 - Encounter for screening, unspecified, Z79.4 - care home (current) use of insulin Medications: New semaglutide (Ozempic) 2 mg (0.75 mL) subcut QWEEK 3 mL 11RF semaglutide (Ozempic) 2 mg (0.75 mL) subcut QWEEK 9 mL 3RF Changed From Lantus Solostar U-100 Insulin (insulin glargine) 40 units (0.4 mL) subcut QPM 15 mL 4RF NS To Lantus Solostar U-100 Insulin (insulin glargine) 20 units (0.2 mL) subcut QPM 15 mL 4RF NS From Novolog FlexPen U-100 Insulin (insulin aspart U-100) with meals 30 units (0.3 mL) subcut TID 30 mL 4RF NS To Novolog FlexPen U-100 Insulin (insulin aspart U-100) with meals 10 units (0.1 mL) subcut TID 30 mL 4RF NS Coding Level of Care Code Est Pt Level 4 (90114) Complex EM visit Add On G2211 Diagnoses Uncontrolled type 2 diabetes mellitus with hyperglycemia, with long-term current use of insulin E11.65; Z79.4 Uncontrolled hypertension I10
[2025-05-01 15:00] VITALS: BP 170/110; PULSE 117; O2SAT 96; BMI 35.1
[2025-05-01 15:11] LABS: Glucose, Whole Blood 135 mg/dL (60-115)
[2025-05-01 15:26] VITALS: BP 150/96
== END 2025-05-01 15:30 | disposition home or self-care (01) ==
LOC: HO.ENCR 14:44
PROVIDERS: PCP Family Medicine; Visit Provider Physician Assistant
DX: Z13.9 Encounter for screening, unspecified (principal); E11.65 Type 2 diabetes mellitus with hyperglycemia; Z79.4 Long term (current) use of insulin; I10 Essential (primary) hypertension

== ENCOUNTER → 2025-05-01 14:43 | Outpatient (BNVA) | payer OTHER, SELFPAY | PROVIDERS: PCP Family Medicine; Visit Provider Physician Assistant | DX: E11.22 Type 2 diabetes mellitus with diabetic chronic kidney disease (principal); E11.65 Type 2 diabetes mellitus with hyperglycemia; I12.9 Hypertensive chronic kidney disease with stage 1 through stage 4 chronic kidney disease, or unspecified chronic kidney disease; N18.9 Chronic kidney disease, unspecified; Z79.4 Long term (current) use of insulin | CPT/HCPCS: 82947; 83036; 99212 ==

== ENCOUNTER 2025-05-08 10:56 | Outpatient (AMB) | payer OTHER, SELFPAY ==
--- NOTE | 2025-05-08 11:20 | MHC.OFFVIS ---
Vital Signs 05/08/25 11:22 Weight 224 lb BP 127/87 Blood Pressure Location Lt brachial Position Sitting Respiration 18 Pulse 103 H Pulse Source Pulse Oximeter Pulse Oximetry (%) 95 Oxygen Delivery Method Room Air Intake Visit Reasons: F/U Left Hip Pain S/P Fall Balance Wheel Screw Hole Tapper Required: No Allergies milk (MILK) Allergy (Severe, Verified 05/08/25 11:22) enterocolitis clindamycin Allergy (Intermediate, Verified 05/08/25 11:22) Vomiting wheat (WHEAT) Allergy (Intermediate, Verified 05/08/25 11:22) enterocolitis amoxicillin (From AUGMENTIN) Adverse Reaction (Intermediate, Verified 05/08/25 11:22) N/V clavulanic acid (From AUGMENTIN) Adverse Reaction (Intermediate, Verified 05/08/25 11:22) N/V corn Adverse Reaction (Mild, Verified 05/08/25 11:22) Nausea and Vomiting NSAIDS (Non-Steroidal Anti-Inflamma (NSAIDS) Adverse Reaction (Mild, Verified 05/08/25 11:22) ULCERS oats Adverse Reaction (Mild, Verified 05/08/25 11:22) Abdominal Pain HPI Comments Details: The patient is a 55-year-old male presenting with left foot pain and hip arthritis. The left foot pain began seven weeks ago following a fall. The pain is localized before the toes on the left foot and is exacerbated by walking, causing swelling and difficulty ambulating. An x-ray was performed, but the results are not known to the patient. The patient also reports hip arthritis, characterized by calcium buildup and reduced joint space, leading to significant pain and limited mobility. Previous steroid injections have not provided relief, and the patient is considering hip replacement surgery as a potential solution. Recently evaluated by new [facility] surgeons and is awaiting scheduled procedure. - Onset: Seven weeks ago following a fall - Quality: Localized pain before the toes on the left foot - Exacerbating factors: Walking, causing swelling and difficulty ambulating - Affect: Pain significantly impacts mobility and daily activities - Analgesia: Previous steroid injections have not provided relief - Activities of Daily Living: Pain limits walking and other activities [facility] Medical History Atelectasis of left lung Abnormal chest x-ray Dyslipidemia Uncontrolled type 2 diabetes mellitus with hyperglycemia, with long-term current use of insulin Chronic allergic rhinitis Diabetes Complex regional pain syndrome I Deficient knowledge of leg surgery home care Sinusitis Pre-op evaluation Methadone use GERD (gastroesophageal reflux disease) History of kidney stones Internal and external bleeding hemorrhoids Severe persistent asthma Sciatica Arthritis Anemia Hiatal hernia Dysphagia Hepatitis C COPD (chronic obstructive pulmonary disease) HTN (hypertension) History of drug abuse Cellulitis Surgical History History of ERCP History of common bile duct surgery History of hemorrhoidectomy Hx of endoscopy History of colonoscopy History of laparoscopy History of appendectomy Family History Father Diabetes Hypertension Mother Hypertension Social History Housing: Apartment Are you a primary healthcare specialist to a significant other at home: No Do you presently have visiting nurse or other home services: No Alcohol intake: never Comment: cramping, relieved partially after using bathroom Patient Tobacco Use Status: Former Tobacco user Tobacco use type: Cigarette e-Cigarette/Vaping Use: Never Used Second Hand Smoke Exposure: No Substance Use Type: Opiates service: No Current occupational status: unemployed Current occupational exposures/hazards: No Cognitive needs: No Hearing needs: No Vision needs: Yes Review of Systems Const Details: - Musculoskeletal: Reports left foot pain and swelling, hip pain due to arthritis Physical Exam Exam Exam: General: awake, alert, oriented. Answers questions appropriately. Fully engaged in examination. Skin: warm, dry, intact HEENT: Normocephalic. Hearing intact. Cardiac: External chest normal in appearance. Respiratory: No cough, audible wheezing or stridor. Abdomen: without gross distension. MS: Left foot examination reveals pain and swelling. No obvious bruising or deformity. Neurological: Oriented to person, place, time and situation. Thought process intact. No gait abnormalities appreciated. Psychiatric: Appropriate mood and affect. Good judgment and insight. Vital Signs: Last Vital Signs Pulse 103 H 05/08/25 11:22 Resp 18 05/08/25 11:22 BP 127/87 05/08/25 11:22 Pulse Ox 95 05/08/25 11:22 Oxygen Delivery Method Room Air 05/08/25 11:22 Assessment & Plan Assessment & Plan (1) Lower extremity edema: Code(s): R60.0 - Localized edema Category: Medical (2) Pain of left lower extremity: Code(s): M79.605 - Pain in left leg Category: Medical (3) Left foot pain: Code(s): M79.672 - Pain in left foot Category: Medical Plan The patient is advised to follow up with an patient relations specialist for further evaluation of the left foot pain. Consideration of a support brace may be necessary to aid in mobility and reduce pain. For hip arthritis, the patient is considering hip replacement surgery as a potential solution due to the lack of relief from steroid injections. He should follow up with [facility] surgeons as planned. Patient was informed and verbally consented to the use of an ambient scribe for clinic note documentation during this visit. Patient Instructions: - Follow up with an patient relations specialist for left foot evaluation - Consider using a support brace as recommended - Discuss hip replacement surgery options with your healthcare provider Coding Level of Care Code Est Pt Level 3 (43283) Complex EM visit Add On G2211 Diagnoses Lower extremity edema R60.0 Pain of left lower extremity M79.605 Left foot pain M79.672
[2025-05-08 11:22] VITALS: BP 127/87; PULSE 103; RESP 18; O2SAT 95
--- OUTSIDE RECORDS SUMMARY | 2025-05-08 11:59 | XMS_ITS | Encounter Summary ---
Author Organization [facility] Address [address] [place] [address] Care Team Providers Care Senior Energy Consultant Name Role Phone Unavailable Primary Care Provider Unavailabl e Reason for Visit * Reason Comments Throat Problem Encounter Details Date Type Department Care Team ([facility] st Contact Info) Description 11/15/2016 [address] [facility] [address] [address] Leah Bonner NP Throat Problem Social History [...] desk rapid strep will be removed from [facility] by the [facility] support team. He is placinga ticket as I accidentally resulted the rapid throat test under the wrong patient account. documented in this encounter Plan of Treatment Not on file documented as of this encounter Visit Diagnoses Not on filedocumented in this encounter
--- OUTSIDE RECORDS SUMMARY | 2025-05-08 11:59 | XMS_ITS | Patient Health Record ---
Author Organization [facility] Address [address] [place] [address] Care Team Providers Care Shift Leader Name Role Phone Good Harper MD Primary Care Provider Kiet Byrd Unavailable [phone] Allergies Allergen (clinical drug ingredient) Drug/Non Drug Allergy documented on EMR Reaction Allergy Type Onset Date Status [place], Wheat, Oats (uncoded) Unknown Allergy Active ibuprofen [...] HCl 10 MG TAKE 1 TABLET BY AR UT EVERY DAY Oral; Duration: 90 Not-Taking [...] Problem Acquired hammer toe of right foot (1588436717703 105) Other hammer toe(s) (acquired), right foot (M20.41) Active confirmed Response to treatment,I mprovement Problem Acquired hammer toe of left foot (5057335441672 103) Other hammer toe(s) (acquired), left foot (M20.42) Active confirmed Response to treatment,I mprovement Problem Type 2 diabetes mellitus with peripheral angiopathy (702147333) Type 2 diabetes mellitus with diabetic peripheral angiopathy without gangrene (E11.51) Active confirmed Q7(A), Q8(2B), Q9(1B,2C) Vital Signs Blood pressure diastolic 60 mm Hg 03/05/2025 Height 5ft7in in 03/05/2025 Blood pressure systolic 137 mm Hg 03/05/2025 Weight 220 lbs 03/05/2025 BMI 34.45 kg/m2 03/05/2025 Procedures Procedure Date Ordered Date Performed Result Body Sit e 30184-ZTNYPNZ NAIL, 1-5 06/02/2024 N/A 95658-YXLI SKIN LESIONS, 2 TO 4 06/02/2024 N/A G8161-FOHVLPAH DYSTROPHIC NAILS ANY # 06/02/2024 N/A 51214-AOXKLWZ NAIL, 1-5 09/08/2024 N/A 67577-YRAN SKIN LESIONS, 2 TO 4 09/08/2024 N/A U6492-ZGSSRYDC DYSTROPHIC NAILS ANY # 09/08/2024 N/A 04380-HNIHKUK NAIL, 1-5 12/04/2024 N/A 90403-QEIL SKIN LESIONS, 2 TO 4 12/04/2024 N/A S0825-PTNMXRXL DYSTROPHIC NAILS ANY # 12/04/2024 N/A 78770-UBZHYLG NAIL, 1-5 03/05/2025 N/A 99350-TNKI SKIN LESIONS, 2 TO 4 03/05/2025 N/A Y0609-AKKQSRMJ DYSTROPHIC NAILS ANY # 03/05/2025 N/A Encounters Encounter Location Date Provider Diagnosis [facility] [address] [address] 06/02/2024 Kiet Sutherland Type 2 diabetes mellitus with diabetic peripheral angiopathy without gangrene E11.51 ; Tinea unguium B35.1 ; Pain in right toe(s) M79.674 ; Pain in left toe(s) M79.675 ; Other hammer toe(s) (acquired), right foot M20.41 and Other hammer toe(s) (acquired), left foot M20.[address] [address] 09/08/2024 Kiet Sutherland Type 2 diabetes mellitus with diabetic peripheral angiopathy without gangrene E11.51 ; Tinea unguium B35.1 ; Pain in right toe(s) M79.674 ; Pain in left toe(s) M79.675 and Xerosis of skin L85.[address] [address] 12/04/2024 Kiet Sutherland Type 2 diabetes mellitus with diabetic peripheral angiopathy without gangrene E11.51 ; Tinea unguium B35.1 ; Pain in right toe(s) M79.674 ; Pain in left toe(s) M79.675 ; Xerosis of skin L85.3 ; Other hammer toe(s) (acquired), right foot M20.41 and Other hammer toe(s) (acquired), left foot M20.[address] [address] 03/05/2025 Kiet Sutherland Tinea unguium B35.1 ; Type 2 diabetes mellitus with diabetic peripheral angiopathy without gangrene E11.51 ; Pain in right toe(s) M79.674 and Pain in left toe(s) M79.[address] [address] 05/09/2024 Kiet Sutherland [address] [address] 08/20/2024 Kiet Sutherland [address] [address] 10/24/2024 Kiet Sutherland Assessments Encounter Date Diagnosis [...] Treatment Pending Test Test Name Order Date 34860-ASMYPGU NAIL, 1-5 06/02/2024 84596-KPHZKQY NAIL, 1-5 09/08/2024 79738-HRZEWKQ NAIL, 1-5 12/04/2024 57984-DTOTMIN NAIL, 1-5 03/05/2025 29290-XKLM SKIN LESIONS, 2 TO 4 03/05/20 25 59783-AXHQ SKIN LESIONS, 2 TO 4 06/02/20 24 92164-JINP SKIN LESIONS, 2 TO 4 12/05/19 25 91978-GWDL SKIN LESIONS, 2 TO 4 09/08/19 25 W0089-QCUYOJID DYSTROPHIC NAILS ANY # S2548-FYRCSGBE DYSTROPHIC NAILS ANY # C8251-CTHVKFET DYSTROPHIC NAILS ANY # L5052-JKNTVNKT DYSTROPHIC NAILS ANY # 10970,K8966-RDU TENDON SHEATH/LIGAMENT 0 03/18/202079131,L9694-AJK TENDON SHEATH/LIGAMENT 0 04/15/202048575,D6871-XVI TENDON SHEATH/LIGAMENT 0 04/19/2020 Next Appt Details Provider Name:Kiet Parks Ena , 06/04/2025 01:45:00 PM, [address], [address], [place], [address], Insurance Providers Payer Name Payer Address Payer Phone Subscriber Number Group Number Insured Name Patient Relationship to Insured Coverage Start Date Coverage End Date [facility] [employer] Claims [address] [place] [id number] [phone] [id number] Kale Zhong Self - patient is the insured Medical (General) History Medical History History ICD Code asthma Back,Hip,and Knee pain Diverticulosis Hypertension Reflux ( GERD) Stomach ulcer Chicken pox Transfusions Diabetes mellitus Surgical History Surgery Date(Month/Year) appendectomy kidney stones stomach surgery Hospitalization History Reason Date(Month/Year) [facility] [place] [facility] [place] 04[place]13/20 [facility] Foot swelling 03/14/20 [facility] [place] Raoul Dop Bilateral Lower Extremity 12/05/19 [facility] [place] Bilateral Lower Extremit y 12/17/19 [facility] [place] Left Lower Extremity 12/03 03/22 [facility] [place] Ultra Sound right leg to rule out DVT 01/23/20 [facility] [place] Scan Right Foot, Xray Right foot, 10/31/19
--- OUTSIDE RECORDS SUMMARY | 2025-05-08 11:59 | XMS_ITS | Clinical Summary ---
Author Organization [facility] Address [address] [place] [address] Care Team Providers Care Air Conditioning Unit Tester Name Role Phone Marylu Estrada MD Primary Care Provider [phone] Surgical History Surgery Date Site/Laterality Comments APPENDECTOMY 2010 PROCEDURE: HISTORICAL APPENDECTOMY KIDNEY STONE SURGERY 2010 PROCEDURE: CA NEPHROLITHOTOMY REMOVAL CALCULUS HEMORRHOID SURGERY 2010 PROCEDURE: DESTRUCTION OF HEMORRHOIDS COLONOSCOPY 08/14/12 [facility] PROCEDURE: HISTORICAL COLONOSCOPY; COMMENT: hemorrhoids; repeat under propofol in ten yrs ESOPHAGOGASTRODUODENOSCOPY 08/14/12 [facility] PROCEDURE: CA ESOPHAGOGASTRODUODENOSCOPY TRANSORAL DIAGNOSTIC; COMMENT: Hiatus hernia Medical History Medical History Date Comments Asthma DX:Asthma; COMME NT: Frequent hospitalizations GI bleed DX:GI bleed; COM MENT: 99 - 4 untis - NSAID Abdominal pain DX:Abdominal christen n Opiate dependence (CMS/HCC V 24, CMS/HCC V28) 03/28/2012 DX:Opiate dependence ([facility]) Boxer's fracture DX:Boxer's frac ture [...] 08/28/2023 Social Influencers of Health Screening 08/28/2023 Depression Screening 09/03/2024 COVID-19 Vaccine ( - 2023-2 5 season) 2025 Influenza Vaccine (#1) 2025 HIB Vaccines Aged [...] age to complete this topic Care Teams Air Conditioning Unit Tester Relationship Specialty Start Date End Date Marylu Estrada MD [address] [place] [address] PCP - General Internal Medicine 10/01/12
--- OUTSIDE RECORDS SUMMARY | 2025-05-08 11:59 | XMS_ITS | Clinical Summary ---
Author Organization [facility] Address [address] [place] [id number] Phone Care Team Providers Care Regulatory Intern Name Role Phone Good Harper MD Primary [...] 2019 ZOSTER VACCINES (1 of 2) 2019 INFLUENZA VACCINE (#1) 2025 COVID-19 VACCINE (2023-2 5 season) 2025 HEPATITIS A VACCINES Aged Out No long [...] on file Insurance MEDICARE REPLACEMENT MEDICARE REPLACEMENT MEDICARE REPLAC[place] [id number] [place] [id number] CARE MEDICARE REPLACEMENT Care Teams Regulatory Intern Relationship Specialty Start Date End Date Good Harper MD [address] [place] [address] PCP - General Family Medicine 03/27/24 Additional Source Comments The information contained in this document represents components of the legal health record. It is not the complete legal health record.[facility]
--- OUTSIDE RECORDS SUMMARY | 2025-05-08 11:59 | XMS_ITS | Clinical Summary ---
Author Organization [facility] Address [address] [place] [address] Care Team Providers Care Prawn Trawler Hand Name Role Phone Unavailable Primary Care Provider [...] ( - 2023-2 5 season) 2025 Influenza (#1) 2025 HPV Vaccine (No Doses Required) Completed Hep A Aged Out No longer eligi ble based on patient's age to complete this topic Hib Aged Out No longer eligi ble based on patient's age to complete this topic Meningococcal ACWY Aged Out No longer eligible based on patient's age to complete this topic Insurance [address] [place] [address] [facility] FFS ONE CARE
== END 2025-05-08 11:44 | disposition home or self-care (01) ==
LOC: HO.PMC 10:56
PROVIDERS: PCP Family Medicine; Visit Provider Registered Nurse Emergency
DX: R60.0 Localized edema (principal); M79.605 Pain in left leg; M79.672 Pain in left foot
CPT/HCPCS: 99213; G2211

== ENCOUNTER → 2025-05-08 10:56 | Outpatient (BNVA) | payer OTHER, SELFPAY | PROVIDERS: PCP Family Medicine; Visit Provider Registered Nurse Emergency | DX: R60.0 Localized edema (principal); M79.605 Pain in left leg; M79.672 Pain in left foot; M16.9 Osteoarthritis of hip, unspecified | CPT/HCPCS: 99212 ==

== ENCOUNTER 2025-06-08 08:21 | Outpatient (AMB) | payer OTHER, SELFPAY ==
--- OUTSIDE RECORDS SUMMARY | 2025-06-04 09:45 | XMS_ITS ---
Author Organization [facility] Address [address] [facility] [address] Care Team Providers Care Procurement Manager Name Role Phone Good Harper MD Primary Care Provider Kiet Byrd Unavailable [phone] Allergies Allergen (clinical drug ingredient) Drug/Non Drug Allergy documented on EMR Reaction Allergy Type Onset Date Status [place], Wheat, Oats (uncoded) Unknown Allergy Active ibuprofen [...] HCl 10 MG TAKE 1 TABLET BY [facility] EVERY DAY Oral; Duration: 90 Not-Taking Budesonide [...] Nonsmoker Encounters Encounter Location Date Provider Diagnosis [facility] [place] [address] [place] [phone] 06/04/2025 Kiet Sutherland Plan Of Treatment No Information Progress Notes * Kale ZHONGDOB:1970 (55 yo M)Acc No.[id number]:06/04/2025 Progress Note Patient: Gail VALENCIA Kale Provider: Tyler Sutherland DPM :1970 A ge:55 Y S ex:Male Date:06/04/2025 Address: [address] [facility], [id number] Pcp:Good Harper MD Subjective: * Chief Complaints: * * Medical History: A sthma, Back,Hip,and Knee pain, Diverticulosis, Hypertension, Reflux ( GERD), Stomach ulcer, Chicken pox, Transfusions, Diabetes mellitus. * Surgical History: a ppendectomy , kidney stones , stomach surgery . * Hospitalization/Major Diagno stic Procedure: H CT Scan Right Foot, Xray Right foot, 10[place], [facility] [place] right leg to rule out DVT 01/23/20, C Ultra Sound Left Lower Extremity 12/29/19, C Ultra Sound Bilateral Lower Extremity 12/17/19, [facility] [place] Roaul Dop Bilateral Lower Extremity 12/05/19, [facility] [place] Foot swelling 03/14/20, [facility] [place] [place] can't walk 04/13/20, [facility] 04/23/20. [...] * Allergies: A dvil, Aleve, Motrin, Augmentin, [place], Wheat, Oats. Objective: * Vitals: * P [...] Date: 1 Generated for Spike don/Trinity/Donnie on: 08:45 AM EDT History and Physical Notes * Examination Category Sub-Category Detail Notes Category Not es Ophthalmology Referral DIABETES EYE EXAM Procedu re Performed:: Yes Date of Exam Performed: 08/12/2024 Diabetic Retinopathy Screening:: Yes Retinal Screening Performed:: Yes Findings of Diabetic Eye Exam:: no retin opathy
--- NOTE | 2025-06-08 08:25 | A.OFFPC_ITS ---
Vital Signs 06/08/25 08:34 Height 5 ft 7 in Weight 225 lb BMI 35.2 BP 155/82 H Blood Pressure Location Rt brachial Position Sitting Respiration 16 Pulse 89 Pulse Source Pulse Oximeter Temp 97.9 F Temp Source Oral Pulse Oximetry (%) 97 Oxygen Delivery Method Room Air Intake Visit Reasons: f/u hypertension, chronic conditions /fall Intake Note: patient here for follow up on HTN and chronic conditions/fall Hospitality Workers Required: No Allergies milk (MILK) Allergy (Severe, Verified 06/09/25 11:32) enterocolitis clindamycin Allergy (Intermediate, Verified 06/09/25 11:32) Vomiting wheat (WHEAT) Allergy (Intermediate, Verified 06/09/25 11:32) enterocolitis amoxicillin (From AUGMENTIN) Adverse Reaction (Intermediate, Verified 06/09/25 11:32) N/V clavulanic acid (From AUGMENTIN) Adverse Reaction (Intermediate, Verified 11:32) N/V corn Adverse Reaction (Mild, Verified 06/09/25 11:32) Nausea and Vomiting NSAIDS (Non-Steroidal Anti-Inflamma (NSAIDS) Adverse Reaction (Mild, Verified 06/09/25 11:32) ULCERS oats Adverse Reaction (Mild, Verified 06/09/25 11:32) Abdominal Pain Medication List - Last Reconciled 06/08/25 by Good Harper MD albuterol sulfate 2.5 mg (3 mL) inhalation Q6H PRN 30 days albuterol sulfate 90 mcg/actuation 2 puffs inhalation Q6H PRN 30 days atorvastatin 20 mg PO BEDTIME blood pressure monitor Automatic, Digital. Dx: I10. Daily As directed, 999 days/lifetime blood sugar diagnostic (FreeStyle Lite Strips) As directed, to test blood sugar 4 times a day blood-glucose meter (FreeStyle Lite Meter kit) DX: E11.9, test blood sugar 2 times a day, duration 999 days blood-glucose sensor (FreeStyle James 3 Sensor device) Apply every 14 days As directed blood-glucose,print line inspector,cont (FreeStyle James 3 Roann) As directed cane Daily As directed. 999 days crutches (pair of crutches) As directed crutches (pair of crutches) As directed Dupixent Pen (dupilumab) 300 mg (2 mL) subcut Q2W NS fexofenadine (Hue Hives) 180 mg PO DAILY 30 days ieivootlevx-mwgsfzkrr-xbetomiq 200-62.5-25 mcg (Trelegy Ellipta) 1 inh inhalation DAILY 90 days glucose (Dex4 Glucose) 16 grams (4 x 4 gram) PO Q15M PRN Grab bar As directed, 999 days hydrocodone-acetaminophen 5-325 mg 1 tab PO BID PRN 30 days lancets (FreeStyle Lancets) As directed lancets (FreeStyle Lancets) As directed bs checks 2-3 times per day Lantus Solostar U-100 Insulin (insulin glargine) 20 units (0.2 mL) subcut QPM NS lisinopril 40 mg PO DAILY magnesium hydroxide (Milk of Magnesia) 20 mL PO DAILY magnesium oxide 500 mg PO BID methadone 40 mg PO DAILY miscellaneous medical supply Hand-held?shower?head,?As directed, 999 days miscellaneous medical supply 2 med planners; 1 urinal; 1 bed red; 1 commode; 2 grab bars for bed miscellaneous medical supply quad cane small base miscellaneous medical supply Toilet?see?raised,?As directed, 999 days montelukast 10 mg PO BEDTIME mupirocin 2% 1 appl topical BID 7 days nebulizers As directed Novolog FlexPen U-100 Insulin (insulin aspart U-100) 10 units (0.1 mL) subcut TID NS omeprazole 20 mg PO DAILY ondansetron 4 mg PO Q8H PRN peg-electrolyte soln 420 gram 240 mL PO Q10M pen needle, diabetic (BD Lynda 2nd Gen Pen Needle) DIRECTED INJECTS 4 X/DAY pentoxifylline ER 400 mg PO BID semaglutide (Ozempic) 1 mg (0.75 mL) subcut QWEEK Shower Chair Daily As directed, 999 days sodium chloride 0.65% (Saline Nasal) 2 sprays intranasal Q2H PRN sodium phosphates 19-7 gram/118 mL (Fleet Enema) 118 mL [place] BEDTIME PRN Tobacco use date assessed: 06/08/25 Dental Screening Dental Screen Date: 06/08/25 Did you have a dental visit in the last 12 months?: No Did you have a dental problem in the last 6 months where you did not have access to dental care?: No Was dental information given to patient?: Patient has dentist HPI f/u hypertension, chronic conditions /fall HPI Details 55 y/o male presents to f/u hypertension , chronic condition. Prior A1c 6.6%. Blood pressure today 155/82, 89p. He is on lisinopril 40mg daily. Pt notes he had been unable to tolerate hydrochlorothiazide, amlodipine, metoprolol. Recent injection for his hips. Notes pain has been improving Complaints of significant nasal congestion. HPI Comments History of Present Illness Details Documentation assistance for Good Harper MD, was provided by Sharif Jacques,? Senior Instrumentation Engineer on 06/08/2025 at 8:42 AM EST. I, Dr. Harper, have read, observed, and verified documentation. ?? [facility] Medical History (Updated 06/09/25 @ 22:04 by Tera Ayoub DPM) Atelectasis of left lung Abnormal chest x-ray Dyslipidemia Uncontrolled type 2 diabetes mellitus with hyperglycemia, with long-term current use of insulin Chronic allergic rhinitis Diabetes Complex regional pain syndrome I Deficient knowledge of leg surgery home care Sinusitis Pre-op evaluation Methadone use GERD (gastroesophageal reflux disease) History of kidney stones Internal and external bleeding hemorrhoids Severe persistent asthma Sciatica Arthritis Anemia Hiatal hernia Dysphagia Hepatitis C COPD (chronic obstructive pulmonary disease) HTN (hypertension) History of drug abuse Cellulitis Surgical History History of ERCP History of common bile duct surgery History of hemorrhoidectomy Hx of endoscopy History of colonoscopy History of laparoscopy History of appendectomy Family History Father Diabetes Hypertension Mother Hypertension Social History Housing: Apartment Are you a primary career professional to a significant other at home: No Do you presently have visiting nurse or other home services: No Alcohol intake: never Comment: cramping, relieved partially after using bathroom Patient Tobacco Use Status: Former Tobacco user Tobacco use type: Cigarette e-Cigarette/Vaping Use: Never Used Second Hand Smoke Exposure: No Substance Use Type: Opiates service: No Current occupational status: unemployed Current occupational exposures/hazards: No Cognitive needs: No Hearing needs: No Vision needs: Yes Questionnaire Thrive Questionnaire Date Thrive assessed: 12/19/24 I am a: Patient What is your living situation today?: I have a steady place to live Within the past 12 months, did the food you bought not last and you didn't have the money to get more?: I choose not to answer this question THRIVE Score: 0 CORNELIUS-7 AMB Questionnaire CORNELIUS-7 Date CORNELIUS - 7 assessed: 11/17/22 Source: Developed by Drs. Sigifredo Matson, Sangeeta Sandy, Ty Davis and colleagues, with an educational frida from [email or web address]. Review of Systems Const Denies chills, Denies fatigue, Denies fever(s), Denies headache(s) and Denies weakness ENT Denies dizziness, Denies headache(s) and Reports nasal congestion Card Denies dyspnea Resp Denies cough, Denies dyspnea, Denies wheezing and Denies other (shortness of breath) Musc Denies numbness and Denies tingling Neuro Denies dizziness, Denies headache(s), Denies numbness, Denies tingling and Denies weakness Psych Denies anxiety and Denies depression Endo Denies fatigue Aller/Immun Denies wheezing Physical exam (Primary Care) Vital Signs: Last Vital Signs Temp 97.9 F 06/08/25 08:34 Pulse 89 06/08/25 08:34 Resp 16 06/08/25 08:34 BP 155/82 H 06/08/25 08:34 Pulse Ox 97 06/08/25 08:34 Oxygen Delivery Method Room Air 06/08/25 08:34 BMI result Body Mass Index 35.2 Tobacco/Smoking Status: Tobacco use Status Tobacco use date assessed 06/08/25 06/08/25 08:36 Patient Tobacco Use Status Former Tobacco user 06/08/25 08:26 Tobacco use type Cigarette 06/08/25 08:26 e-Cigarette/Vaping Use Never Used 06/08/25 08:26 Thrive Assessment: Date of Thrive Assessment Date Thrive assessed 12/19/24 06/08/25 08:26 Const General: well developed; No acute distress Nutritional Appearance: well nourished Orientation/consciousness: patient oriented x3 HENMT Head: Yes normocephalic and Yes atraumatic Eyes General: appearance normal, both eyes and all related structures Pupils: Equal, round and reactive pupils present EOM: EOMs intact bilaterally Resp Effort & Inspection: normal respiratory effort Auscultation: clear to auscultation bilaterally Cardio Rate: regular rate Rhythm: regular rhythm Heart sounds: S1 normal heart sound present, S2 normal heart sound present, no gallops, no murmurs and no rubs Neuro General: patient oriented x3 and gait normal Cranial nerves: Yes Equal, round and reactive pupils present Psych Affect: normal affect Coding Level of Care Code Est Pt Level 5 (26848) Diagnoses Primary hypertension I10 Hypertension type: primary hypertension Diabetes E11.9 Fall W19.XXXA Hip pain M25.559 Nasal congestion R09.81 Assessment & Plan Assessment & Plan (1) HTN (hypertension): Code(s): I10 - Essential (primary) hypertension Category: Medical Qualifiers: Hypertension type: primary hypertension Qualified Code(s): I10 - Essential (primary) hypertension Plan: Blood pressure is too high. Patient notes that it goes up and down quite a bit He is taking lisinopril 40 mg daily Has tried many other medications which he says make him feel fatigued Has not tried spironolactone He can try spironolactone. He will monitor his blood pressures at home and tried medication when blood pressures are too high (2) Diabetes: Code(s): E11.9 - Type 2 diabetes mellitus without complications Category: Medical Plan: A1c recently checked was 6.6%. Good control. Goal is less than 7% Continue current medication regimen Follow-up with endocrinology as recommended (3) Fall: Code(s): W19.XXXA - Unspecified fall, initial encounter Category: Medical Plan: Lower extremity weakness and frequent falls with recent fall. Weakness secondary to inactivity which is due to chronic pain in hip and foot/ankle Has now seen ortho and received a left hip joint injection He has an appointment tomorrow with specialist for his foot/ankle He is taking hydrocodone-acetaminophen with some relief. Will give him a script that allows him to take his up to once day and I encouraged him to seek exercise. Patient says he is looking for a water program and checking with his insurance on this. I think this would be ideal for him. In the past he has avoided NSAIDs due to ulcerations. This was back about 26 years ago. No current or recent ulcerations. Will try celecoxib and can use this sparingly when he has more severe pain and for short courses. (4) Hip pain: Code(s): M25.559 - Pain in unspecified hip Category: Medical Plan: As above (5) Nasal congestion: Code(s): R09.81 - Nasal congestion Category: Medical Plan Severe nasal congestion thick discharge with ?pus. Giving script for doxycycline Medications: New spironolactone 25 mg PO DAILY 30 tabs 3RF 30 days olopatadine 0.2% 1 drp ophthalmic (eye) DAILY PRN 5 mL 2RF itching 30 days doxycycline hyclate 100 mg PO DAILY 5 tabs 0RF 5 days celecoxib 200 mg PO DAILY PRN 30 caps 3RF pain 30 days Changed From hydrocodone-acetaminophen 5-325 mg #15 tabs per 30 days. MassPat Verified. Partial Fill upon patient request. 1 tab PO BID 30 days PRN 15 tabs 0RF pain To hydrocodone-acetaminophen 5-325 mg MassPat Verified. Partial Fill upon patient request. 1 tab PO BID PRN 28 tabs 0RF pain 28 days
[2025-06-08 08:34] VITALS: BP 155/82; PULSE 89; RESP 16; TEMP 36.6; O2SAT 97; BMI 35.2
--- OUTSIDE RECORDS SUMMARY | 2025-06-08 08:45 | XMS_ITS | Clinical Summary ---
Author Organization [facility] Address [address] [place] [address] Care Team Providers Care Landscape Architecture Professor Name Role Phone Unavailable Primary Care Provider [...] this topic Insurance [address] [place] [address] [facility] FFS ONE CARE
--- OUTSIDE RECORDS SUMMARY | 2025-06-08 08:45 | XMS_ITS | Clinical Summary ---
Author Organization [facility] Address [address] [place] [address] Care Team Providers Care Print Buyer Name Role Phone Marylu Estrada MD Primary Care Provider [phone] Surgical History Surgery Date Site/Laterality Comments APPENDECTOMY 2010 PROCEDURE: HISTORICAL APPENDECTOMY KIDNEY STONE SURGERY 2010 PROCEDURE: CO NEPHROLITHOTOMY REMOVAL CALCULUS HEMORRHOID SURGERY 2010 PROCEDURE: DESTRUCTION OF HEMORRHOIDS COLONOSCOPY 08/14/12 [facility] PROCEDURE: HISTORICAL COLONOSCOPY; COMMENT: hemorrhoids; repeat under propofol in ten yrs ESOPHAGOGASTRODUODENOSCOPY 08/14/12 [facility] PROCEDURE: CO ESOPHAGOGASTRODUODENOSCOPY TRANSORAL DIAGNOSTIC; COMMENT: Hiatus hernia Medical History Medical History Date Comments Asthma DX:Asthma; COMME NT: Frequent hospitalizations GI bleed DX:GI bleed; COM MENT: 99 - 4 untis - NSAID Abdominal pain DX:Abdominal christen n Opiate dependence (CMS/HCC V 24, CMS/HCC V28) 03/28/2012 DX:Opiate dependence ([facility]) Boxer's fracture DX:Boxer's frac ture [...] Health Maintenance Due Date Last Done Comments Colorectal Cancer Screening: Colonoscopy 1969 DTaP,Tdap,and Td Vaccines (1 - Tdap) 01/05/1988 Hepatitis B Vaccines (1 of 3 - 19+ 3-dose series) 01/05/1988 Pneumococcal Vaccine: 50+ Ye ars (1 of 1 - PCV) 2019 Zoster Vaccines (1 of 2) 2019 Cholesterol Screening (Lipid Panel) 08/28/2023 HIV Screening 08/28/2023 Hepatitis C Screening 08/28/2023 Social Influencers of Health Screening 08/28/2023 Depression Screening 09/03/2024 COVID-19 Vaccine (1 - 2023-2 5 season) 2025 Influenza Vaccine (#1) 2025 RSV Immunization Adult Patie nts (1 - 1-dose 75+ series) 01/05/2044 HIB Vaccines Aged Out No longer eligi [...] age to complete this topic Care Teams Print Buyer Relationship Specialty Start Date End Date Marylu Estrada MD [address] [place] [address] PCP - General Internal Medicine 10/01/12
--- OUTSIDE RECORDS SUMMARY | 2025-06-08 08:45 | XMS_ITS | Encounter Summary ---
Author Organization [facility] Address [address] [place] [address] Care Team Providers Care Tooling Manager Name Role Phone Unavailable Primary Care Provider Unavailabl e Reason for Visit * Reason Comments Throat Problem Encounter Details Date Type Department Care Team ([facility] st Contact Info) Description 11/15/2016 [address] [facility] [address] [address] Leah Bonner NP Throat Problem Social History [...] desk rapid strep will be removed from [facility] by the [facility] support team. He is placinga ticket as I accidentally resulted the rapid throat test under the wrong patient account. documented in this encounter Plan of Treatment Not on file documented as of this encounter Visit Diagnoses Not on filedocumented in this encounter
--- OUTSIDE RECORDS SUMMARY | 2025-06-08 08:45 | XMS_ITS | Clinical Summary ---
Author Organization [facility] Address [address] [place] [id number] Phone Care Team Providers Care Record Changer Assembler Name Role Phone Good Harper MD [...] MEDICARE REPLACEMENT MEDICARE [place]PL[place] [address] [place] [address] CARE MEDICARE REPLACEMENT Care Teams Record Changer Assembler Relationship Specialty Start Date End Date Good Harper MD [address] [place] [address] PCP - General Family Medicine 03/27/24 Additional Source Comments The information contained in this document represents components of the legal health record. It is not the complete legal health record.[facility]
--- OUTSIDE RECORDS SUMMARY | 2025-06-08 08:46 | XMS_ITS | Patient Health Record ---
Author Organization [facility] Address [address] [place] [address] Care Team Providers Care Electrocardiographic Technician Name Role Phone Good Harper MD Primary Care Provider Kiet Byrd Unavailable [phone] Allergies Allergen (clinical drug ingredient) Drug/Non Drug Allergy documented on EMR Reaction Allergy Type Onset Date Status Lima, Wheat, Oats (uncoded) Unknown Allergy Active ibuprofen [...] 1 tablet Orally Once a day Active Cetirizine HCl 10 MG TAKE 1 TABLET BY MO UT EVERY DAY Oral; Duration: 90 Not-Taking [...] Duration: 30 days Active Losartan Potassium-HCTZ Not-Taking Physical Therapy . . . 2-3x/week; Duration: 3-4 weeks 04/28/2020 Not-Taking Nightsplint . . . AFO - L1930; Duration: . Not-Taking Clotrimazole 1 % 1 APPLICATION TWICE A DAY EXTERNALLY 7 DAY(S) External; Duration: 30 Not-Taking traMADol HCl Not-Ha ing Z Pac Not-Taking Prednisone Not-Takin g Dupixent 300 MG/2ML as directed Subcutaneous Active Sucralfate 1 GM/10ML 10 ML ON AN EMPTY STOMACH TWICE A DAY ORALLY 30 DAY(S) Oral; Duration: 30 Not-Taking Lantus 20 units Active predniSONE 10 MG TAKE SIX TABLETS SANTY LY FOR THREE DAYS, THEN GO DOWN BY 1 TABLET EVERY THREE DAYS TOTAL OF 18 DAYS Oral; Duration: 18 Not-Taking Albuterol Active hydrOXYzine HCl 25 MG TAKE 1 TABLET BY M OUTH EVERY 8 HOURS NEEDED Oral; Duration: 30 Not-Taking Ozempic 25 units Active Doxycycline Hyclate 100 MG TAKE 1 CAPSULE BY MOUTH TWICE A DAY FOR 7 DAYS Oral; Duration: 7 Not-Taking Magnesium 1000mg Active NovoLOG 30 units Active Immunizations Vaccine Route Administration Date Status [...] Problem Acquired hammer toe of right foot (8058873437871 105) Other hammer toe(s) (acquired), right foot (M20.41) Active confirmed Response to treatment,I mprovement Problem Acquired hammer toe of left foot (2851509843769 103) Other hammer toe(s) (acquired), left foot (M20.42) Active confirmed Response to treatment,I mprovement Problem Type 2 diabetes mellitus with peripheral angiopathy ([id number]) Type 2 diabetes mellitus with diabetic peripheral angiopathy without gangrene (E11.51) Active confirmed Q7(A), Q8(2B), Q9(1B,2C) Vital Signs Blood pressure diastolic 60 mm Hg 03/05/2025 Height 5ft7in in 03/05/2025 Blood pressure systolic 137 mm Hg 03/05/2025 Weight 220 lbs 03/05/2025 BMI 34.45 kg/m2 03/05/2025 Procedures Procedure Date Ordered Date Performed Result Body Sit e 50489-[id number] NAIL, 1-5 09/08/2024 N/A 07935-AQBM SKIN LESIONS, 2 TO 4 09/08/2024 N/A C1659-UCCDTWPO DYSTROPHIC NAILS ANY # 09/08/2024 N/A 91875-JJUSAXA NAIL, 1-5 12/04/2024 N/A 17780-PQYK SKIN LESIONS, 2 TO 4 12/04/2024 N/A H3350-YVTWLBRV DYSTROPHIC NAILS ANY # 12/04/2024 N/A 59559-CXUVDVJ NAIL, 1-5 03/05/2025 N/A 55685-TLJM SKIN LESIONS, 2 TO 4 03/05/2025 N/A S7024-RNOIJBEJ DYSTROPHIC NAILS ANY # 03/05/2025 N/A Encounters Encounter Location Date Provider Diagnosis [facility] [address] [address] 09/08/2024 Kiet Zuletaunier Type 2 diabetes mellitus with diabetic peripheral angiopathy without gangrene E11.51 ; Tinea unguium B35.1 ; Pain in right toe(s) M79.674 ; Pain in left toe(s) M79.675 and Xerosis of skin L85.[address] [address] 12/04/2024 Kiet Sutherland Type 2 diabetes mellitus with diabetic peripheral angiopathy without gangrene E11.51 ; Tinea unguium B35.1 ; Pain in right toe(s) M79.674 ; Pain in left toe(s) M79.675 ; Xerosis of skin L85.3 ; Other hammer toe(s) (acquired), right foot M20.41 and Other hammer toe(s) (acquired), left foot M20.[address] [address] 03/05/2025 Kiet Sutherland Tinea unguium B35.1 ; Type 2 diabetes mellitus with diabetic peripheral angiopathy without gangrene E11.51 ; Pain in right toe(s) M79.674 and Pain in left toe(s) M79.[address] [address] 06/04/2025 Kiet Ena [address] [address] 08/20/2024 Kiet Ena [address] [address] 10/24/2024 Kiet Sutherland Assessments Encounter Date Diagnosis [...] Treatment Pending Test Test Name Order Date 57840-XZHSGBI NAIL, 1-06/02/2024 31952-IEBSHAB NAIL, 1-09/08/2024 94233-WGBSTZC NAIL, 1-5 12/04/2024 57849-DEMBHKS NAIL, 1-5 03/05/2025 09612-SQIB SKIN LESIONS, 2 TO 4 03/05/20 25 09550-HNWM SKIN LESIONS, 2 TO 4 06/02/20 24 26439-BSJN SKIN LESIONS, 2 TO 4 12/05/19 25 13832-FSHP SKIN LESIONS, 2 TO 4 09/08/19 25 S8295-MLLNIMNT DYSTROPHIC NAILS ANY # R1274-YHUPXDNZ DYSTROPHIC NAILS ANY # E4739-EEFENLNK DYSTROPHIC NAILS ANY # V6183-MBQIFLWH DYSTROPHIC NAILS ANY # 50,J7225-YFE TENDON SHEATH/LIGAMENT 0 03/18/2020,X2715-WSG TENDON SHEATH/LIGAMENT 0 04/15/2020,G7854-JJG TENDON SHEATH/LIGAMENT 0 04/19/2020 Insurance Providers Payer Name Payer Address Payer Phone Subscriber Number Group Number Insured Name Patient Relationship to Insured Coverage Start Date Coverage End Date [facility] [employer] Claims [address] [place] [id number] Kale Zhong Self - patient is the insured Medical (General) History Medical History History ICD Code asthma Back,Hip,and Knee pain Diverticulosis Hypertension Reflux ( GERD) Stomach ulcer Chicken pox Transfusions Diabetes mellitus Surgical History Surgery Date(Month/Year) appendectomy kidney stones stomach surgery Hospitalization History Reason Date(Month/Year) [facility] 04/23/[place] [facility] [place] 04/13/20 [facility] Foot swelling 03/14/20 [facility] Ultra Sound Raoul Dop Bilateral Lower Extremity 12/05/19 [facility] [place] Sound Bilateral Lower Extremit y 12/17/19 [facility] Ultra Sound Left Lower Extremity 12/03 03/22 [facility] Venous Ultra Sound right leg to rule out DVT 01/23/20 [facility] Scan Right Foot, Xray Right foot, 10/31/19
== END 2025-06-08 08:54 | disposition home or self-care (01) ==
LOC: HO.HMCFM 08:22
PROVIDERS: PCP Family Medicine; Visit Provider Family Medicine
DX: I10 Essential (primary) hypertension (principal); E11.9 Type 2 diabetes mellitus without complications; W19.XXXA Unspecified fall, initial encounter; M25.552 Pain in left hip; R09.81 Nasal congestion

== ENCOUNTER → 2025-06-08 08:21 | Outpatient (BNVA) | payer OTHER, SELFPAY | PROVIDERS: PCP Family Medicine; Visit Provider Family Medicine | DX: I10 Essential (primary) hypertension (principal); E11.9 Type 2 diabetes mellitus without complications; R09.81 Nasal congestion; Z91.81 History of falling | CPT/HCPCS: 99212 ==

== ENCOUNTER 2025-06-09 11:13 | Outpatient (AMB) | payer OTHER, SELFPAY ==
--- OUTSIDE RECORDS SUMMARY | 2025-06-04 09:45 | XMS_ITS ---
Author Organization [facility] Address [address] [place] [address] Care Team Providers Care Audit Practice Intern Name Role Phone Good Harper MD Primary Care Provider Kiet Byrd Unavailable [phone] Allergies Allergen (clinical drug ingredient) Drug/Non Drug Allergy documented on EMR Reaction Allergy Type Onset Date Status Dexter, Wheat, Oats (uncoded) Unknown Allergy Active ibuprofen [...] Not-Taking predniSONE 10 MG TAKE SIX TABLETS SATNY LY FOR THREE DAYS, THEN GO DOWN [...] HCl 10 MG TAKE 1 TABLET BY [facility] EVERY DAY Oral; Duration: 90 Not-Taking Budesonide [...] Nonsmoker Encounters Encounter Location Date Provider Diagnosis [facility] [place] [address] [place] [phone] 06/04/2025 Kiet Sutherland Plan Of Treatment No Information Progress Notes * Kale ZHONGDOB:1970 (55 yo M)Acc No.[id number]:06/04/2025 Progress Note Patient: Gail VALENCIA Kale Provider: Tyler Sutherland DPM :1970 A ge:55 Y S ex:Male Date:06/04/2025 Address: [address] [facility], [id number] Pcp:Good Harper MD Subjective: * Chief Complaints: * * Medical History: A sthma, Back,Hip,and Knee pain, Diverticulosis, Hypertension, Reflux ( GERD), Stomach ulcer, Chicken pox, Transfusions, Diabetes mellitus. * Surgical History: a ppendectomy , kidney stones , stomach surgery . * Hospitalization/Major Diagno stic Procedure: H CT Scan Right Foot, Xray Right foot, 10/31/19, [facility] [place] Ultra Sound right leg to rule out DVT 01/23/20, C Ultra Sound Left Lower Extremity 12/29/19, C Ultra Sound Bilateral Lower Extremity 12/17/19, [facility] [place] Ultra Sound Raoul Dop Bilateral Lower Extremity 12/05/19, [facility] [place] [place] Foot swelling 03/14/20, [facility] [place] can't walk 04/13/20, [facility] 04/23/20. [...] * Allergies: A dvil, Aleve, Motrin, Augmentin, Dexter, Wheat, Oats. Objective: * Vitals: * P [...] Date: 1 Generated for Spike don/Trinity/Donnie on: 02:04 PM EDT History and Physical Notes * Examination Category Sub-Category Detail Notes Category Not es Ophthalmology Referral DIABETES EYE EXAM Procedu re Performed:: Yes Date of Exam Performed: 08/12/2024 Diabetic Retinopathy Screening:: Yes Retinal Screening Performed:: Yes Findings of Diabetic Eye Exam:: no retin opathy
[2025-06-09 11:31] VITALS: BMI 35.2
--- NOTE | 2025-06-09 11:31 | MHC.OFFVIS ---
Vital Signs 06/09/25 11:31 Height 5 ft 7 in Weight 225 lb BMI 35.2 Intake Visit Reasons: New Pt- Diabetic foot exam & left foot pain Intake Note: Kale is a 55 year old male who presents today as a New Patient for a Diabetic Foot Exam and with complaints of Left Foot Pain. Patient reports that his pain was onset s/p fall about 2-3 months ago. His pain is felt proximal to the toes. XR were done. He states his glucose is currently at 110 and his last reported A1C was 6.6 as of 05/01/25. Patient notices a tingling sensation in his whole foot and radiates to his ankle and he denies any burning or numbness in his feet. He denies any back pain or injuries and he is currently not taking gabapentin IMPRESSION: Small plantar calcaneal spur. Otherwise unremarkable examination of the left foot. Allergies milk (MILK) Allergy (Severe, Verified 06/09/25 11:32) enterocolitis clindamycin Allergy (Intermediate, Verified 06/09/25 11:32) Vomiting wheat (WHEAT) Allergy (Intermediate, Verified 06/09/25 11:32) enterocolitis amoxicillin (From AUGMENTIN) Adverse Reaction (Intermediate, Verified 06/09/25 11:32) N/V clavulanic acid (From AUGMENTIN) Adverse Reaction (Intermediate, Verified 06/09/25 11:32) N/V corn Adverse Reaction (Mild, Verified 06/09/25 11:32) Nausea and Vomiting NSAIDS (Non-Steroidal Anti-Inflamma (NSAIDS) Adverse Reaction (Mild, Verified 06/09/25 11:32) ULCERS oats Adverse Reaction (Mild, Verified 06/09/25 11:32) Abdominal Pain HPI HPI New Pt- Diabetic foot exam & left foot pain: Details: The patient is a 55-year-old male past medical history of diabetes mellitus type 2, COPD, GERD, HTN, Hepatitis C, lumbar radiculopathy, presenting with left ankle pain and swelling following multiple falls. The initial injury occurred approximately 12 weeks ago, which he states worsened his left hip pain. He had also injured his foot/ankle and underwent x-rays which were negative for foot injury. Since, he has had progressive ankle pain and swelling. He had a new recent fall this past sunday and his ankle pain has worsened since then. The pain is exacerbated by movement, particularly when ascending stairs or climbing curbs. He has not tried treatment so far other than compression stockings which he states makes his swelling in his feet worse. He ambulates with a cane to his right side due to his left hip. The patient has a history of diabetes mellitus and reports successful weight loss efforts. He has had left hip injections at [facility], however the recent injection was unsuccessful due to excessive calcium. He is planned for another appointment in the next week and was told he may be a candidate for surgical treatment. [facility] Medical History (Updated 06/09/25 @ 22:04 by Tera Ayoub DPM) Atelectasis of left lung Abnormal chest x-ray Dyslipidemia Uncontrolled type 2 diabetes mellitus with hyperglycemia, with long-term current use of insulin Chronic allergic rhinitis Diabetes Complex regional pain syndrome I Deficient knowledge of leg surgery home care Sinusitis Pre-op evaluation Methadone use GERD (gastroesophageal reflux disease) History of kidney stones Internal and external bleeding hemorrhoids Severe persistent asthma Sciatica Arthritis Anemia Hiatal hernia Dysphagia Hepatitis C COPD (chronic obstructive pulmonary disease) HTN (hypertension) History of drug abuse Cellulitis Surgical History History of ERCP History of common bile duct surgery History of hemorrhoidectomy Hx of endoscopy History of colonoscopy History of laparoscopy History of appendectomy Family History Father Diabetes Hypertension Mother Hypertension Social History Housing: Apartment Are you a primary child care associate to a significant other at home: No Do you presently have visiting nurse or other home services: No Alcohol intake: never Comment: cramping, relieved partially after using bathroom Patient Tobacco Use Status: Former Tobacco user Tobacco use type: Cigarette e-Cigarette/Vaping Use: Never Used Second Hand Smoke Exposure: No Substance Use Type: Opiates service: No Current occupational status: unemployed Current occupational exposures/hazards: No Cognitive needs: No Hearing needs: No Vision needs: Yes Review of Systems Const All systems reviewed & are unremarkable except as noted in HPI and below Physical Exam Vital Signs: BMI result Body Mass Index 35.2 Extrem Other: *Bilateral Lower Extremity Focused Diabetic Foot Exam Vascular: DP/PT 2/4, CFT<3s to digits, TG warm to cool, no pedal edema, pedal hair absent Derm: Skin: No open lesions, ulcerations, or calluses. Interdigital spaces: Clear, no maceration or fungal infection. Nails: thickened, short toenails x10. Neuro: Protective sensation intact to bilateral lower extremities Msk: moderate tenderness on palpation of left PT tendon and AT tendons at the level of the ankle to insertion. Moderate tenderness to medial ankle gutter on dorsiflexion. Mild tenderness to lateral ankle ligaments, and on plantarflexion/inversion. No midfoot pain. Moderate tenderness on palpation of left plantar medial calcaneal tubercle. Deformities: No evidence of hammertoes, bunions, Charcot changes, or other structural abnormalities. Muscle strength: 4+/5 in all muscle groups. Gait: Normal, no antalgic or steppage gait observed. Footwear Assessment: Shoes inspected; appropriate fit, no excessive wear, or foreign objects noted. Results Reviewed Results Reviewed: Podiatry X-ray Read: 04/30/2025 X-ray left foot non-weight bearing 3 views (AP, MO, Lateral) reviewed which shows mild plantar calcaneal spur. No fractures, dislocations, or gross abnormalities. Bone density is within normal limits. Normal anatomy. No evidence of swelling, foreign body, or calcifications. I personally reviewed the imaging and my findings are listed above. Assessment & Plan Assessment & Plan (1) Left ankle sprain: Code(s): S93.402A - Sprain of unspecified ligament of left ankle, initial encounter Category: Medical Qualifiers: Encounter type: initial encounter Involved ligament of ankle: anterior talofibular ligament Qualified Code(s): S93.492A - Sprain of other ligament of left ankle, initial encounter Plan: Rx left ankle x-rays. An Yan bandage wrap was applied from the base of his foot to his mid calf. He was recommended re-applying the Yan bandage daily. The patient was dispensed a lace-up ankle brace. (2) Tendinitis of left ankle: Code(s): M77.52 - Other enthesopathy of left foot and ankle Category: Medical Plan: The patient was recommended at home range of motion and stretching exercises. A handout was dispensed. The patient was recommended physical therapy however the patient states he is unable to tolerate physical therapy due to his left hip. This will be discussed with physical therapy at our location for possible non-ambulatory left ankle rehab. The patient also may require an MRI in the future due to his tendinitis and to rule out a talar OCD lesion given his clinical symptoms. (3) Plantar fasciitis of left foot: Code(s): M72.2 - Plantar fascial fibromatosis Category: Medical Plan: Recommended at home stretching exercises. Patient may benefit from a cortisone injection at his next visit if symptoms do not improve. (4) Diabetes type 2, uncontrolled: Code(s): E11.65 - Type 2 diabetes mellitus with hyperglycemia Category: Medical Qualifiers: Glycemic state: with hyperglycemia Qualified Code(s): E11.65 - Type 2 diabetes mellitus with hyperglycemia Plan: Risk Stratification: No current ulceration, infection, or pre-ulcerative lesion. No loss of protective sensation or peripheral arterial disease. No plans for further testing/referrals for non-invasive vascular studies. Patient is at low risk for diabetic foot complications at this time. Recommendations: Continue routine foot care and daily self-inspection. Recommend moisturizing daily. Recommend supportive proper fitting shoe-wear. The patient may require diabetic shoes in the future. Reinforced diabetic foot education and risks from peripheral neuropathy. Orders: Orders XR ankle LT min 3V Today S93.402A - Sprain of unspecified ligament of left ankle, initial encounter Coding Level of Care Code New Pt Level 4 (86719) Diagnoses Sprain of anterior talofibular ligament of left ankle, initial encounter S93.492A Encounter type: initial encounter Involved ligament of ankle: anterior talofibular ligament Tendinitis of left ankle M77.52 Plantar fasciitis of left foot M72.2 Uncontrolled type 2 diabetes mellitus with hyperglycemia E11.65 Glycemic state: with hyperglycemia Time Spent (min) 45
--- OUTSIDE RECORDS SUMMARY | 2025-06-09 14:04 | XMS_ITS | Clinical Summary ---
Author Organization [facility] Address [address] [place] [id number] Phone Care Team Providers Care Physical Therapy Resident Name Role Phone Good Harper MD Primary [...] MEDICARE REPLACEMENT MEDICARE REPLAC[place] [id number] [place] [id number] CARE MEDICARE REPLACEMENT Care Teams Physical Therapy Resident Relationship Specialty Start Date End Date Good Harper MD [address] [place] [address] PCP - General Family Medicine 03/27/24 Additional Source Comments The information contained in this document represents components of the legal health record. It is not the complete legal health record.[facility]
--- OUTSIDE RECORDS SUMMARY | 2025-06-09 14:04 | XMS_ITS | Clinical Summary ---
Author Organization [facility] Address [address] [place] [address] Care Team Providers Care Associate Professor Of Criminal Justice Name Role Phone Marylu Estrada MD Primary Care Provider [phone] Surgical History Surgery Date Site/Laterality Comments APPENDECTOMY 2010 PROCEDURE: HISTORICAL APPENDECTOMY KIDNEY STONE SURGERY 2010 PROCEDURE: [place] NEPHROLITHOTOMY REMOVAL CALCULUS HEMORRHOID SURGERY 2010 PROCEDURE: DESTRUCTION OF HEMORRHOIDS COLONOSCOPY 08/14/12 [facility] PROCEDURE: HISTORICAL COLONOSCOPY; COMMENT: hemorrhoids; repeat under propofol in ten yrs ESOPHAGOGASTRODUODENOSCOPY 08/14/12 [facility] PROCEDURE: [place] ESOPHAGOGASTRODUODENOSCOPY TRANSORAL DIAGNOSTIC; COMMENT: Hiatus hernia Medical History Medical History Date Comments Asthma DX:Asthma; COMME NT: Frequent hospitalizations GI bleed DX:GI bleed; COM MENT: 99 - 4 untis - NSAID Abdominal pain DX:Abdominal christen n Opiate dependence (CMS/HCC V 24, CMS/HCC V28) 03/28/2012 DX:Opiate dependence ([facility]) Boxer's fracture DX:Boxer's frac ture Nephrolithiasis DX:Nephrolithias [...] age to complete this topic Care Teams Associate Professor Of Criminal Justice Relationship Specialty Start Date End Date Marylu Estrada MD [address] [place] [address] PCP - General Internal Medicine 10/01/12
--- OUTSIDE RECORDS SUMMARY | 2025-06-09 14:04 | XMS_ITS | Clinical Summary ---
Author Organization [facility] Address [address] [place] [address] Care Team Providers Care Obstetrics/Gynecology Nurse Name Role Phone Unavailable Primary Care Provider [...] of 2) 2019 COVID-19 Vaccine ( - 2024-2 6 season) 2025 Influenza (#1) 2025 HPV Vaccine (No Doses Required) Completed Hep A Aged Out No longer eligi ble based on patient's age to complete this topic Hib Aged Out No longer eligi ble based on patient's age to complete this topic Meningococcal ACWY Aged Out No longer eligible based on patient's age to complete this topic Insurance [address] [place] [address] [facility] FFS ONE CARE
--- OUTSIDE RECORDS SUMMARY | 2025-06-09 14:04 | XMS_ITS | Patient Health Record ---
[facility] Address [address] [address] Care Team Providers Care Tumbler Plater Name Role Phone Good Harper MD Primary Care Provider Kiet Byrd Unavailable [phone] Allergies Allergen (clinical drug ingredient) Drug/Non Drug Allergy documented on EMR Reaction Allergy Type Onset Date Status [place], Wheat, Oats (uncoded) Unknown Allergy Active ibuprofen [...] Problem Acquired hammer toe of right foot (5564647729997 105) Other hammer toe(s) (acquired), right foot (M20.41) Active confirmed Response to treatment,I mprovement Problem Acquired hammer toe of left foot (6216158838873 103) Other hammer toe(s) (acquired), left foot (M20.42) Active confirmed Response to treatment,I mprovement Problem Type 2 diabetes mellitus with peripheral angiopathy (008873493) Type 2 diabetes mellitus with diabetic peripheral angiopathy without gangrene (E11.51) Active confirmed Q7(A), Q8(2B), Q9(1B,2C) Vital Signs Blood pressure diastolic 60 mm Hg 03/05/2025 Height 5ft7in in 03/05/2025 Blood pressure systolic 137 mm Hg 03/05/2025 Weight 220 lbs 03/05/2025 BMI 34.45 kg/m2 03/05/2025 Procedures Procedure Date Ordered Date Performed Result Body Sit e 82824-NJKCHPO NAIL, 1-5 09/08/2024 N/A 44582-IFYA SKIN LESIONS, 2 TO 4 09/08/2024 N/A P9706-RZAARDED DYSTROPHIC NAILS ANY # 09/08/2024 N/A 01453-CDNPOSV NAIL, 1-5 12/04/2024 N/A 14559-DVOJ SKIN LESIONS, 2 TO 4 12/04/2024 N/A T1800-GRWHVLOR DYSTROPHIC NAILS ANY # 12/04/2024 N/A 42797-GCUUMLF NAIL, 1-5 03/05/2025 N/A 34278-WTVO SKIN LESIONS, 2 TO 4 03/05/2025 N/A R1294-WXOMKXVS DYSTROPHIC NAILS ANY # 03/05/2025 N/A Encounters Encounter Location Date Provider Diagnosis [facility] [address] [address] 09/08/2024 Kiet Zuletaunier Type 2 diabetes mellitus with diabetic peripheral angiopathy without gangrene E11.51 ; Tinea unguium B35.1 ; Pain in right toe(s) M79.674 ; Pain in left toe(s) M79.675 and Xerosis of skin L85.[address] [address] 12/04/2024 Kiet Sutherland Type 2 diabetes mellitus with diabetic peripheral angiopathy without gangrene E11.51 ; Tinea unguium B35.1 ; Pain in right toe(s) M79.674 ; Pain in left toe(s) M79.675 ; Xerosis of skin L85.3 ; Other hammer toe(s) (acquired), right foot M20.41 and Other hammer toe(s) (acquired), left foot M20.[address] [address] 03/05/2025 Kiet Sutherland Tinea unguium B35.1 ; Type 2 diabetes mellitus with diabetic peripheral angiopathy without gangrene E11.51 ; Pain in right toe(s) M79.674 and Pain in left toe(s) M79.[address] [address] 06/04/2025 Kiet Ena [address] [address] 08/20/2024 Kiet Ena [address] [address] 10/24/2024 Kiet Sutherland Assessments Encounter Date Diagnosis [...] Treatment Pending Test Test Name Order Date 87570-ILMSOME NAIL, 1-06/02/2024 09581-LCDBUVD NAIL, 1-09/08/2024 48914-USBKFMG NAIL, 1-5 12/04/2024 12243-YJKBZIW NAIL, 1-5 03/05/2025 55087-OERD SKIN LESIONS, 2 TO 4 03/05/20 25 64903-NATL SKIN LESIONS, 2 TO 4 06/02/20 24 31090-ZIZE SKIN LESIONS, 2 TO 4 12/05/19 25 30836-FNUL SKIN LESIONS, 2 TO 4 09/08/19 25 N7125-YNVHOIAK DYSTROPHIC NAILS ANY # P5525-FGXXEXAB DYSTROPHIC NAILS ANY # L3565-SHRCFFGH DYSTROPHIC NAILS ANY # I6746-PHABXUYK DYSTROPHIC NAILS ANY # 50,L2039-UNU TENDON SHEATH/LIGAMENT 0 03/18/2020,H3110-SLR TENDON SHEATH/LIGAMENT 0 04/15/2020,Y4157-FRM TENDON SHEATH/LIGAMENT 0 04/19/2020 Insurance Providers Payer Name Payer Address Payer Phone Subscriber Number Group Number Insured Name Patient Relationship to Insured Coverage Start Date Coverage End Date [facility] [employer] Claims [address] [place] [id number] Kale Zhong Self - patient is the [...]
--- OUTSIDE RECORDS SUMMARY | 2025-06-09 14:04 | XMS_ITS | Encounter Summary ---
Author Organization [facility] Address [address] [place] [address] Care Team Providers Care Lpn Name Role Phone Unavailable Primary Care Provider Unavailabl e Reason for Visit * Reason Comments Throat Problem Encounter Details Date Type Department Care Team ([facility] st Contact Info) Description 11/15/2016 [address] [facility] [address] [address] Leah Bonner NP Throat Problem Social History [...] desk rapid strep will be removed from [facility] by the [facility] support team. He is placinga ticket as I accidentally resulted the rapid throat test under the wrong patient account. documented in this encounter Plan of Treatment Not on file documented as of this encounter Visit Diagnoses Not on filedocumented in this encounter
== END 2025-06-09 11:59 | disposition home or self-care (01) ==
LOC: HO.HPODS 11:14
PROVIDERS: PCP Family Medicine; Visit Provider Student in an Organized Health Care Education/Training Program
DX: S93.492A Sprain of other ligament of left ankle, initial encounter (principal); M77.52 Other enthesopathy of left foot and ankle; M72.2 Plantar fascial fibromatosis; E11.65 Type 2 diabetes mellitus with hyperglycemia
CPT/HCPCS: 99204

== ENCOUNTER → 2025-06-09 11:13 | Outpatient (BNVA) | payer OTHER, SELFPAY | PROVIDERS: PCP Family Medicine; Visit Provider Student in an Organized Health Care Education/Training Program | DX: E11.65 Type 2 diabetes mellitus with hyperglycemia (principal); S93.402A Sprain of unspecified ligament of left ankle, initial encounter; M77.52 Other enthesopathy of left foot and ankle; M72.2 Plantar fascial fibromatosis | CPT/HCPCS: 99202 ==

== ENCOUNTER 2025-06-12 11:05 | Outpatient (REF) | payer OTHER, SELFPAY | END 2025-06-12 11:06 | disposition home or self-care (01) | LOC: HO.XRAY 11:05 | PROVIDERS: PCP Family Medicine; Visit Provider Student in an Organized Health Care Education/Training Program | DX: Z13.89 Encounter for screening for other disorder (principal) ==

== ENCOUNTER 2025-06-16 08:15 | Outpatient (REF) | payer OTHER, SELFPAY ==
--- NOTE | ~2025-06-16 | XR_ITS ---
CLINICAL HISTORY: S93.402A - Sprain of unspecified ligament of left ankle, initial encounter --- Additional Notes or Special Instructions: Please perform weight-bearing left ankle x-rays three views 3 view left ankle Comparison: None provided Findings: Exuberant callus formation of the distal tibial diaphysis; sequela of prior trauma. No significant loss of joint space, osteophytes, or erosions. No ankle effusion. No radiopaque foreign body. No acute fracture or dislocation. Small calcaneal spur. IMPRESSION: 1. Exuberant callus formation of the distal tibial diaphysis, likely sequela of prior trauma. 2. Small calcaneal spur. 3. No acute osseous injury. This document has been electronically signed by: Casper Wolfe MD on 06/17/2025 21:17:18
== END 2025-06-16 08:16 | disposition home or self-care (01) ==
LOC: HO.XRAY 08:15
PROVIDERS: PCP Family Medicine; Visit Provider Student in an Organized Health Care Education/Training Program
DX: S93.402A Sprain of unspecified ligament of left ankle, initial encounter (principal)
CPT/HCPCS: 73610

== ENCOUNTER → 2025-06-16 08:24 | Outpatient (BNV) | payer OTHER, SELFPAY | PROVIDERS: PCP Family Medicine; Visit Provider Radiology Diagnostic Radiology | DX: S93.402A Sprain of unspecified ligament of left ankle, initial encounter (principal) | CPT/HCPCS: 73610 ==

== ENCOUNTER 2025-07-03 10:45 | Outpatient (AMB) | payer OTHER, SELFPAY ==
--- OUTSIDE RECORDS SUMMARY | 2025-06-04 09:45 | XMS_ITS ---
Author Organization [facility] Address [address] [place] [address] Care Team Providers Care Specifications Checker Name Role Phone Good Harper MD Primary Care Provider Kiet Byrd Unavailable [phone] Allergies Allergen (clinical drug ingredient) Drug/Non Drug Allergy documented on EMR Reaction Allergy Type Onset Date Status [place], Wheat, Oats (uncoded) Unknown Allergy Active ibuprofen [...] HCl 10 MG TAKE 1 TABLET BY [facility] EVERY DAY Oral; Duration: 90 Not-Taking [...] Nonsmoker Encounters Encounter Location Date Provider Diagnosis [facility] [place] [address] [place] [phone] 06/04/2025 Kiet Sutherland Plan Of Treatment No Information Progress Notes * Kale ZHONGDOB:1970 (55 yo M)Acc No.[id number]:06/04/2025 Progress Note Patient: Gail VALENCIA Kale Provider: Tyler Sutherland DPM :1970 A ge:55 Y S ex:Male Date:06/04/2025 Address: [address] [facility], [id number] Pcp:Good Harper MD Subjective: * Chief Complaints: * * Medical History: A sthma, Back,Hip,and Knee pain, Diverticulosis, Hypertension, Reflux ( GERD), Stomach ulcer, Chicken pox, Transfusions, Diabetes mellitus. * Surgical History: a ppendectomy , kidney stones , stomach surgery . * Hospitalization/Major Diagno stic Procedure: H CT Scan Right Foot, Xray Right foot, 10/31/19, [facility] [place] Venous Ultra Sound right leg to rule out DVT 01/23/20, C Ultra Sound Left Lower Extremity 12/29/19, C Ultra Sound Bilateral Lower Extremity 12/17/19, [facility] [place] Ultra Sound Raoul Dop Bilateral Lower Extremity 12/05/19, [facility] [place] Foot swelling 03/14/20, [facility] [place] can't walk 04/13/20, [facility] 04/23/20. [...] * Allergies: A dvil, Aleve, Motrin, Augmentin, [place], Wheat, Oats. Objective: * Vitals: * P [...] Date: 1 Generated for Spike don/Trinity/Donnie on: 12:18 PM EDT History and Physical Notes * Examination Category Sub-Category Detail Notes Category Not es Ophthalmology Referral DIABETES EYE EXAM Procedu re Performed:: Yes Date of Exam Performed: 08/12/2024 Diabetic Retinopathy Screening:: Yes Retinal Screening Performed:: Yes Findings of Diabetic Eye Exam:: no retin opathy
[2025-07-03 11:10] VITALS: BMI 35.2
--- NOTE | 2025-07-03 11:10 | A.OFFVIS_ITS ---
Vital Signs 07/03/25 11:10 Height 5 ft 7 in Weight 225 lb BMI 35.2 Intake Visit Reasons: fu Diabetic foot exam & left foot pain Intake Note: Kale is a 55 year old male who presents today for a follow up on his left foot pain. Pt reports the pain has worsened since the last time he was here. Due to his hip injury he is unable to do PT at this time. Patient mentions he notices swelling on the dorsum aspect of his foot. Allergies milk (MILK) Allergy (Severe, Verified 07/03/25 11:12) enterocolitis clindamycin Allergy (Intermediate, Verified 07/03/25 11:12) Vomiting wheat (WHEAT) Allergy (Intermediate, Verified 07/03/25 11:12) enterocolitis amoxicillin (From AUGMENTIN) Adverse Reaction (Intermediate, Verified 07/03/25 11:12) N/V clavulanic acid (From AUGMENTIN) Adverse Reaction (Intermediate, Verified 07/03/25 11:12) N/V corn Adverse Reaction (Mild, Verified 07/03/25 11:12) Nausea and Vomiting NSAIDS (Non-Steroidal Anti-Inflamma (NSAIDS) Adverse Reaction (Mild, Verified 07/03/25 11:12) ULCERS oats Adverse Reaction (Mild, Verified 07/03/25 11:12) Abdominal Pain HPI HPI fu Diabetic foot exam & left foot pain: Details: The patient is a 55-year-old male past medical history of diabetes mellitus type 2, COPD, GERD, HTN, Hepatitis C, lumbar radiculopathy, returns for 3 week follow up for left heel and ankle pain. Patient attempted the lace-up ankle brace and the Yan bandage which he was not able to tolerate due to swelling after walking forefoot duration. He still has persistent left heel pain. Has been doing some stretching and meswp-mo-hzryxj exercises. History: The initial injury occurred approximately , which he states worsened his left hip pain. He had also injured his foot/ankle and underwent x- rays which were negative for foot injury. Since then, he had progressive ankle pain and swelling. He had a new recent fall early June and his left ankle pain worsened since then. The pain is exacerbated by movement, particularly when ascending stairs or climbing curbs. He ambulates with a cane to his right side due to his left hip. The patient has a history of diabetes mellitus and reports successful weight loss efforts. He has had left hip injections at [facility], however the recent injection was unsuccessful due to excessive calcium. He is planned for another appointment in the next week and was told he may be a candidate for surgical treatment. [facility] Medical History (Updated 06/09/25 @ 22:04 by Tera Ayoub DPM) Atelectasis of left lung Abnormal chest x-ray Dyslipidemia Uncontrolled type 2 diabetes mellitus with hyperglycemia, with long-term current use of insulin Chronic allergic rhinitis Diabetes Complex regional pain syndrome I Deficient knowledge of leg surgery home care Sinusitis Pre-op evaluation Methadone use GERD (gastroesophageal reflux disease) History of kidney stones Internal and external bleeding hemorrhoids Severe persistent asthma Sciatica Arthritis Anemia Hiatal hernia Dysphagia Hepatitis C COPD (chronic obstructive pulmonary disease) HTN (hypertension) History of drug abuse Cellulitis Surgical History History of ERCP History of common bile duct surgery History of hemorrhoidectomy Hx of endoscopy History of colonoscopy History of laparoscopy History of appendectomy Family History Father Diabetes Hypertension Mother Hypertension Social History Housing: Apartment Are you a primary neurocritical care physician to a significant other at home: No Do you presently have visiting nurse or other home services: No Alcohol intake: never Comment: cramping, relieved partially after using bathroom Patient Tobacco Use Status: Former Tobacco user Tobacco use type: Cigarette e-Cigarette/Vaping Use: Never Used Second Hand Smoke Exposure: No Substance Use Type: Opiates service: No Current occupational status: unemployed Current occupational exposures/hazards: No Cognitive needs: No Hearing needs: No Vision needs: Yes Review of Systems Const All systems reviewed & are unremarkable except as noted in HPI and below Physical Exam Vital Signs: BMI result Body Mass Index 35.2 Extrem Other: *Bilateral Lower Extremity Focused Diabetic Foot Exam Vascular: DP/PT 2/4, CFT<3s to digits, TG warm to cool, no pedal edema, pedal hair absent Derm: Skin: No open lesions, ulcerations, or calluses. Interdigital spaces: Clear, no maceration or fungal infection. Nails: thickened, short toenails x10. Neuro: Protective sensation intact to bilateral lower extremities Msk: Mild tenderness on palpation of left PT tendon and AT tendons at the level of the ankle to insertion. Mild tenderness to medial ankle gutter on dorsiflexion. Mild tenderness to lateral ankle ligaments, and on plantarflexion/inversion. No midfoot pain. Moderate tenderness on palpation of left plantar medial calcaneal tubercle. Deformities: No evidence of hammertoes, bunions, Charcot changes, or other structural abnormalities. Muscle strength: 4+/5 in all muscle groups. Gait: Normal, no antalgic or steppage gait observed. Footwear Assessment: Shoes inspected; appropriate fit, no excessive wear, or foreign objects noted. Results Reviewed Results Reviewed: Podiatry X-ray Read: 06/17/2025 X-ray left ankle 3 views (AP, Mortise, Lateral) reviewed which shows healed tibial diaphysis fracture. No other fractures, dislocations, osteochondral defects. Moderate plantar calcaneal spur. I personally reviewed the imaging and my findings are listed above. Assessment & Plan Assessment & Plan (1) Plantar fasciitis of left foot: Code(s): M72.2 - Plantar fascial fibromatosis Category: Medical Plan: * Continue at home range of motion and stretching exercises * Referred to physical therapy * Dispensed night splint * Recommended cortisone injection which the patient deferred at this time. * The patient requested surgical treatment. At this time, we recommend trialing all conservative treatment options first prior to proceeding with surgery. * Follow up in 1 month (2) Left ankle sprain: Code(s): S93.402A - Sprain of unspecified ligament of left ankle, initial encounter Category: Medical Qualifiers: Encounter type: initial encounter Involved ligament of ankle: anterior talofibular ligament Qualified Code(s): S93.492A - Sprain of other ligament of left ankle, initial encounter Plan: * Continue Yan bandage for the left lower extremity (3) Tendinitis of left ankle: Code(s): M77.52 - Other enthesopathy of left foot and ankle Category: Medical Plan: * The patient was recommended at home range of motion and stretching exercises. A handout was dispensed. * Referred to physical therapy * The patient also may require an MRI in the future due to his tendinitis and to rule out a talar OCD lesion given his clinical symptoms. (4) Diabetes type 2, uncontrolled: Code(s): E11.65 - Type 2 diabetes mellitus with hyperglycemia Category: Medical Qualifiers: Glycemic state: with hyperglycemia Qualified Code(s): E11.65 - Type 2 diabetes mellitus with hyperglycemia Plan: Risk Stratification: No current ulceration, infection, or pre-ulcerative lesion. No loss of protective sensation or peripheral arterial disease. No plans for further testing/referrals for non-invasive vascular studies. Patient is at low risk for diabetic foot complications at this time. Recommendations: Continue routine foot care and daily self-inspection. Recommend moisturizing daily. Recommend supportive proper fitting shoe-wear. The patient may require diabetic shoes in the future. Reinforced diabetic foot education and risks from peripheral neuropathy. Orders: Orders PT Evaluation and Treatment Today M72.2 - Plantar fascial fibromatosis Coding Level of Care Code Est Pt Level 3 (46759) Diagnoses Plantar fasciitis of left foot M72.2 Sprain of anterior talofibular ligament of left ankle, initial encounter S93.492A Encounter type: initial encounter Involved ligament of ankle: anterior talofibular ligament Tendinitis of left ankle M77.52 Uncontrolled type 2 diabetes mellitus with hyperglycemia E11.65 Glycemic state: with hyperglycemia Time Spent (min) 30
--- OUTSIDE RECORDS SUMMARY | 2025-07-03 12:18 | XMS_ITS | Clinical Summary ---
Author Organization [facility] Address [address] [place] [address] Care Team Providers Care Analog Ic Design Architect Name Role Phone Unavailable Primary Care Provider [...] this topic Insurance [id number] [place] [address] [facility] FFS [employer]
--- OUTSIDE RECORDS SUMMARY | 2025-07-03 12:18 | XMS_ITS | Clinical Summary ---
Author Organization [facility] Address [address] [place] [address] Care Team Providers Care Wrecking Supervisor Name Role Phone Marylu Estrada MD Primary Care Provider [phone] Surgical History Surgery Date Site/Laterality Comments APPENDECTOMY 2010 PROCEDURE: HISTORICAL APPENDECTOMY KIDNEY STONE SURGERY 2010 PROCEDURE: CA NEPHROLITHOTOMY REMOVAL CALCULUS HEMORRHOID SURGERY 2010 PROCEDURE: DESTRUCTION OF HEMORRHOIDS COLONOSCOPY 08/14/12 [facility] PROCEDURE: HISTORICAL COLONOSCOPY; COMMENT: hemorrhoids; repeat under propofol in ten yrs ESOPHAGOGASTRODUODENOSCOPY 08/14/12 [facility] PROCEDURE: CA ESOPHAGOGASTRODUODENOSCOPY TRANSORAL DIAGNOSTIC; COMMENT: Hiatus hernia Medical History Medical History Date Comments Asthma DX:Asthma; COMME NT: Frequent hospitalizations GI bleed DX:GI bleed; COM MENT: 99 - 4 untis - NSAID Abdominal pain DX:Abdominal christen n Opiate dependence (CMS/HCC V 24, CMS/HCC V28) 03/28/2012 DX:Opiate dependence ([facility]) Boxer's fracture DX:Boxer's frac ture Nephrolithiasis [...] age to complete this topic Care Teams Wrecking Supervisor Relationship Specialty Start Date End Date Marylu Estrada MD [address] [place] [address] PCP - General Internal Medicine 10/01/12
--- OUTSIDE RECORDS SUMMARY | 2025-07-03 12:18 | XMS_ITS | Patient Health Record ---
Author Organization [facility] Address [address] [place] [address] Care Team Providers Care Single Stayer Operator Name Role Phone Good Harper MD Primary Care Provider Kiet Byrd Unavailable [phone] Allergies Allergen (clinical drug ingredient) Drug/Non Drug Allergy documented on EMR Reaction Allergy Type Onset Date Status [place], Wheat, Oats (uncoded) Unknown Allergy Active ibuprofen [...] Problem Acquired hammer toe of right foot (7737263140938 105) Other hammer toe(s) (acquired), right foot (M20.41) Active confirmed Response to treatment,I mprovement Problem Acquired hammer toe of left foot (1838442981349 103) Other hammer toe(s) (acquired), left foot (M20.42) Active confirmed Response to treatment,I mprovement Problem Type 2 diabetes mellitus with peripheral angiopathy (938944785) Type 2 diabetes mellitus with diabetic peripheral angiopathy without gangrene (E11.51) Active confirmed Q7(A), Q8(2B), Q9(1B,2C) Vital Signs Blood pressure diastolic 60 mm Hg 03/05/2025 Height 5ft7in in 03/05/2025 Blood pressure systolic 137 mm Hg 03/05/2025 Weight 220 lbs 03/05/2025 BMI 34.45 kg/m2 03/05/2025 Procedures Procedure Date Ordered Date Performed Result Body Sit e 29121-NPECENB NAIL, 1-5 09/08/2024 N/A 79222-NQHY SKIN LESIONS, 2 TO 4 09/08/2024 N/A E3653-QYGFXVYS DYSTROPHIC NAILS ANY # 09/08/2024 N/A 11908-DOIZNQP NAIL, 1-5 12/04/2024 N/A 10307-HBRZ SKIN LESIONS, 2 TO 4 12/04/2024 N/A E8456-PNTDEXIX DYSTROPHIC NAILS ANY # 12/04/2024 N/A 12525-BUKKABL NAIL, 1-5 03/05/2025 N/A 96991-VFRJ SKIN LESIONS, 2 TO 4 03/05/2025 N/A J1525-DKRFZHWV DYSTROPHIC NAILS ANY # 03/05/2025 N/A Encounters Encounter Location Date Provider Diagnosis [facility] [address] [address] 09/08/2024 Kiet Zuletaunier Type 2 diabetes mellitus with diabetic peripheral angiopathy without gangrene E11.51 ; Tinea unguium B35.1 ; Pain in right toe(s) M79.674 ; Pain in left toe(s) M79.675 and Xerosis of skin L85.[address] [address] 12/04/2024 Kiet Sutherland Type 2 diabetes mellitus with diabetic peripheral angiopathy without gangrene E11.51 ; Tinea unguium B35.1 ; Pain in right toe(s) M79.674 ; Pain in left toe(s) M79.675 ; Xerosis of skin L85.3 ; Other hammer toe(s) (acquired), right foot M20.41 and Other hammer toe(s) (acquired), left foot M20.[address] [address] 03/05/2025 Kiet Sutherland Tinea unguium B35.1 ; Type 2 diabetes mellitus with diabetic peripheral angiopathy without gangrene E11.51 ; Pain in right toe(s) M79.674 and Pain in left toe(s) M79.[address] [address] 06/04/[address]na [address] [address] 08/20/2024 Kiet Ena [address] [address] 10/24/2024 Kiet Sutherland Assessments Encounter Date Diagnosis [...] Treatment Pending Test Test Name Order Date 29427-TJDMJFT NAIL, 1-06/02/2024 77060-KZCQLFI NAIL, 1-09/08/2024 08024-QNLJMFX NAIL, 1-5 12/04/2024 56311-VEKBFUI NAIL, 1-5 03/05/2025 65783-OXQQ SKIN LESIONS, 2 TO 4 03/05/20 25 78474-HTMJ SKIN LESIONS, 2 TO 4 06/02/20 24 78815-BRTV SKIN LESIONS, 2 TO 4 12/05/19 25 67608-NSLX SKIN LESIONS, 2 TO 4 09/08/19 25 T7956-TFIMJBCZ DYSTROPHIC NAILS ANY # N3576-VHBNWXYD DYSTROPHIC NAILS ANY # I5917-DUFHEDCQ DYSTROPHIC NAILS ANY # A6545-EPOWLRLI DYSTROPHIC NAILS ANY # 50,I3279-WTZ TENDON SHEATH/LIGAMENT 0 03/18/2020,D6277-NIC TENDON SHEATH/LIGAMENT 0 04/15/2020,A8522-AHA TENDON SHEATH/LIGAMENT 0 04/19/2020 Insurance Providers Payer Name Payer Address Payer Phone Subscriber Number Group Number Insured Name Patient Relationship to Insured Coverage Start Date Coverage End Date [facility] [employer] Claims [address] [place] [id number] Kale Zhong Self - patient is the insured Medical (General) History Medical History History ICD Code asthma Back,Hip,and Knee pain Diverticulosis Hypertension Reflux ( GERD) Stomach ulcer Chicken pox Transfusions Diabetes mellitus Surgical History Surgery Date(Month/Year) appendectomy kidney stones stomach surgery Hospitalization History Reason Date(Month/Year) [facility] 04/23/20 [facility] can't walk 04/13/20 [facility] Foot swelling 03/14/20 [facility] Ultra Sound Raoul Dop Bilateral Lower Extremity 12/05/19 [facility] Ultra Sound Bilateral Lower Extremit y 12/17/19 [facility] Ultra Sound Left Lower Extremity 12/03 03/22 [facility] Venous Ultra Sound right leg to rule out DVT 01/23/20 [facility] CT Scan Right Foot, Xray Right foot, 10/31/19
--- OUTSIDE RECORDS SUMMARY | 2025-07-03 12:18 | XMS_ITS | Clinical Summary ---
Author Organization [facility] Address [address] [place] [address] Phone Care Team Providers Care System Controller Name Role Phone Good Harper MD Primary [...] 2019 INFLUENZA VACCINE (#1) 2025 COVID-19 VACCINE ( - 2024-2 6 season) 2025 RSV VACCINE (1 - 1-dose 75+ series) 01/05/2044 HEPATITIS A VACCINES Aged Out No long [...] on file Insurance MEDICARE REPLACEMENT MEDICARE [place] [address] [place] [address] [place] [id number] [place] [id number] [place] [id number] [employer] MEDICARE REPLACEMENT Care Teams System Controller Relationship Specialty Start Date End Date Good Harper MD PCP - General Family Medicine 03/27/24 Additional Source Comments The information contained in this document represents components of the legal health record. It is not the complete legal health record.[facility]
--- OUTSIDE RECORDS SUMMARY | 2025-07-03 12:18 | XMS_ITS | Encounter Summary ---
Author Organization [facility] Address [address] [place] [address] Care Team Providers Care Vamp Creaser Name Role Phone Unavailable Primary Care Provider Unavailabl e Reason for Visit * Reason Comments Throat Problem Encounter Details Date Type Department Care Team ([facility] st Contact Info) Description 11/15/2016 Telephone [facility] [address] [address] Leah Bonner NP Throat Problem Social History [...] desk rapid strep will be removed from [facility] by the [facility] support team. He is placinga ticket as I accidentally resulted the rapid throat test under the wrong patient account. documented in this encounter Plan of Treatment Not on file documented as of this encounter Visit Diagnoses Not on filedocumented in this encounter
== END 2025-07-03 11:36 | disposition home or self-care (01) ==
LOC: HO.HPODS 10:46
PROVIDERS: PCP Family Medicine; Visit Provider Student in an Organized Health Care Education/Training Program
DX: M72.2 Plantar fascial fibromatosis (principal); S93.492A Sprain of other ligament of left ankle, initial encounter; M77.52 Other enthesopathy of left foot and ankle; E11.65 Type 2 diabetes mellitus with hyperglycemia
CPT/HCPCS: 99213

== ENCOUNTER → 2025-07-03 10:45 | Outpatient (BNVA) | payer OTHER, SELFPAY | PROVIDERS: PCP Family Medicine; Visit Provider Student in an Organized Health Care Education/Training Program | DX: M72.2 Plantar fascial fibromatosis (principal); S93.492A Sprain of other ligament of left ankle, initial encounter; M77.52 Other enthesopathy of left foot and ankle; E11.65 Type 2 diabetes mellitus with hyperglycemia; W19.XXXA Unspecified fall, initial encounter; Y93.9 Activity, unspecified; Y92.9 Unspecified place or not applicable; Y99.9 Unspecified external cause status | CPT/HCPCS: 99212 ==

== ENCOUNTER 2025-08-03 13:10 | Outpatient (AMB) | payer OTHER, SELFPAY ==
--- NOTE | 2025-08-03 13:12 | A.OFFVIS_ITS ---
Vital Signs 08/03/25 13:14 08/03/25 13:52 Height 5 ft 7 in Weight 224 lb 10.417 oz BMI 35.2 BP 166/122 H 162/102 H Blood Pressure Location Rt brachial Rt brachial Position Sitting Sitting Pulse 125 H 110 H Pulse Source Pulse Oximeter Pulse Oximeter Pulse Oximetry (%) 96 Oxygen Delivery Method Room Air Intake Visit Reasons: T2DM Intake Note: Patient present today for Type 2 Diabetes Mellitus Last Diabetic eye exam: Last exam was early 2024 Last Podiatry Visit: Last visit was 07/2025 Random Glucose: 189 mg/dl HgA1C: 6.9% Machine Stapler Required: No Accompanied by: Self / Same As Patient Allergies milk (MILK) Allergy (Severe, Verified 08/03/25 13:22) enterocolitis clindamycin Allergy (Intermediate, Verified 08/03/25 13:22) Vomiting wheat (WHEAT) Allergy (Intermediate, Verified 08/03/25 13:22) enterocolitis amoxicillin (From AUGMENTIN) Adverse Reaction (Intermediate, Verified 08/03/25 13:22) N/V clavulanic acid (From AUGMENTIN) Adverse Reaction (Intermediate, Verified 08/03/25 13:22) N/V corn Adverse Reaction (Mild, Verified 08/03/25 13:22) Nausea and Vomiting NSAIDS (Non-Steroidal Anti-Inflamma (NSAIDS) Adverse Reaction (Mild, Verified 08/03/25 13:22) ULCERS oats Adverse Reaction (Mild, Verified 08/03/25 13:22) Abdominal Pain Medication List - Last Reconciled 08/03/25 by Suzie Motta PA-C albuterol sulfate 2.5 mg (3 mL) inhalation Q6H PRN 30 days albuterol sulfate 90 mcg/actuation 2 puffs inhalation Q6H PRN 30 days atorvastatin 20 mg PO BEDTIME blood pressure monitor Automatic, Digital. Dx: I10. Daily As directed, 999 days/lifetime blood sugar diagnostic (FreeStyle Lite Strips) As directed, to test blood sugar 4 times a day blood-glucose meter (FreeStyle Lite Meter kit) DX: E11.9, test blood sugar 2 times a day, duration 999 days blood-glucose sensor (FreeStyle James 3 Sensor device) Apply every 14 days As di rected blood-glucose,spotter,cont (FreeStyle James 3 [place]) As directed cane Daily As directed. 999 days celecoxib 200 mg PO DAILY PRN 30 days crutches (pair of crutches) As directed crutches (pair of crutches) As directed doxycycline hyclate 100 mg PO DAILY 5 days Dupixent Pen (dupilumab) 300 mg (2 mL) subcut Q2W NS fexofenadine (Hue Hives) 180 mg PO DAILY 30 days ckcbbmsfmsm-lmeuzltxb-mvtyglva 200-62.5-25 mcg (Trelegy Ellipta) 1 inh inhalation DAILY 90 days glucose (Dex4 Glucose) 16 grams (4 x 4 gram) PO Q15M PRN Grab bar As directed, 999 days hydrocodone-acetaminophen 5-325 mg 1 tab PO BID PRN 28 days lancets (FreeStyle Lancets) As directed lancets (FreeStyle Lancets) As directed bs checks 2-3 times per day Lantus Solostar U-100 Insulin (insulin glargine) 20 units (0.2 mL) subcut QPM NS lisinopril 40 mg PO DAILY magnesium hydroxide (Milk of Magnesia) 20 mL PO DAILY magnesium oxide 500 mg PO BID methadone 40 mg PO DAILY miscellaneous medical supply Hand-held?shower?head,?As directed, 999 days miscellaneous medical supply 2 med planners; 1 urinal; 1 bed red; 1 commode; 2 grab bars for bed miscellaneous medical supply quad cane small base miscellaneous medical supply Toilet?see?raised,?As directed, 999 days montelukast 10 mg PO BEDTIME mupirocin 2% 1 appl topical BID 7 days nebulizers As directed Novolog FlexPen U-100 Insulin (insulin aspart U-100) 10 units (0.1 mL) subcut TID NS olopatadine 0.2% 1 drp ophthalmic (eye) DAILY PRN 30 days omeprazole 20 mg PO DAILY ondansetron 4 mg PO Q8H PRN oxymetazoline 0.05% (Afrin (oxymetazoline)) 2 sprays intranasal Q12H PRN 5 days peg-electrolyte soln 420 gram 240 mL PO Q10M pen needle, diabetic (BD Lynda 2nd Gen Pen Needle) DIRECTED INJECTS 4 X/DAY pentoxifylline ER 400 mg PO BID prednisone 20 mg PO DAILY 10 days semaglutide (Ozempic) 1 mg (0.75 mL) subcut QWEEK Shower Chair Daily As directed, 999 days sodium chloride 0.65% (Saline Nasal) 2 sprays intranasal Q2H PRN sodium phosphates 19-7 gram/118 mL (Fleet Enema) 118 mL [place] BEDTIME PRN spironolactone 25 mg PO DAILY 30 days sulfamethoxazole-trimethoprim 800-160 mg (Bactrim DS) 1 tab PO Q12H 10 days HPI HPI T2DM: Details: Patient is a 55-year-old male with a significant past medical history of hypertension, type 2 diabetes, ED, dyslipidemia, CKD, chronic pain syndrome, hep C, COPD, methadone use presenting today for a diabetic follow-up. Endo: His A1c today it is 6.9. He is on Lantus 20 units at night, NovoLog t.i.d. 10-15 units, ozempic 1 mg weekly. -he tried the 2 mg of Ozempic but got sick -He has tried metformin but did not tolerate. He has tried trulicity but did not tolerate due to vomitingFernando benito and he states it was effective but was getting abdominal pain and nausea with it. CGM- Very hyperglycemic 5%, hyperglycemic 32%, in range 62%, hypoglycemic 0% He states he has not had any low blood sugars -Last eye exam: end of Sep 2023- states that there were some findings (does not recall name of eye issues) and is seeing retina specialist -Last foot exam: sees Dr. Eastman. CV: blood pressure in the office is 166/122. Repeat blood pressure is 162/102. He states that his blood pressure is only elevated because of the pain and he does not want to treat this. He is taking the lisinopril 40 mg and spironolactone 25 mg daily. His heart rate is elevated and he states it is because of the pain and because he had to walk-in here. He states it is always like this when he is moving around. He is getting his hip replaced in October and states that when he is lying around his house his blood pressure and heart rate are normal. He states he is not on enough medicine for pain control. [facility] Medical History (Updated 06/09/25 @ 22:04 by Tera Ayoub DPM) Atelectasis of left lung Abnormal chest x-ray Dyslipidemia Uncontrolled type 2 diabetes mellitus with hyperglycemia, with long-term current use of insulin Chronic allergic rhinitis Diabetes Complex regional pain syndrome I Deficient knowledge of leg surgery home care Sinusitis Pre-op evaluation Methadone use GERD (gastroesophageal reflux disease) History of kidney stones Internal and external bleeding hemorrhoids Severe persistent asthma Sciatica Arthritis Anemia Hiatal hernia Dysphagia Hepatitis C COPD (chronic obstructive pulmonary disease) HTN (hypertension) History of drug abuse Cellulitis Surgical History History of ERCP History of common bile duct surgery History of hemorrhoidectomy Hx of endoscopy History of colonoscopy History of laparoscopy History of appendectomy Family History Father Diabetes Hypertension Mother Hypertension Social History Housing: Apartment Are you a primary critical care unit nurse to a significant other at home: No Do you presently have visiting nurse or other home services: No Alcohol intake: never Comment: cramping, relieved partially after using bathroom Patient Tobacco Use Status: Former Tobacco user Tobacco use type: Cigarette e-Cigarette/Vaping Use: Never Used Second Hand Smoke Exposure: No Substance Use Type: Opiates service: No Current occupational status: unemployed Current occupational exposures/hazards: No Cognitive needs: No Hearing needs: No Vision needs: Yes Physical Exam Vital Signs: Last Vital Signs Pulse 125 H 08/03/25 13:14 BP 166/122 H 08/03/25 13:14 Pulse Ox 96 08/03/25 13:14 Oxygen Delivery Method Room Air 08/03/25 13:14 BMI result Body Mass Index 35.2 Const Orientation/consciousness: patient oriented x3 HEENT Ears: hearing grossly normal bilaterally Neck Thyroid: Thyroid normal Lymphatic: no lymphadenopathy noted Resp Auscultation: clear to auscultation bilaterally Cardio Rate: tachycardic Skin General skin exam: no rashes or lesions noted Neuro General: patient oriented x3, gait normal and no focal motor deficits Results AMB Hemoglobin A1c AMB Hemoglobin A1c 6.9 % Last Edit by DAIN Rosas on 08/03/25 13:33 Results Reviewed Results Reviewed: Laboratory Last Values Glucose (Clinic) 189 mg/dL (60-115) H 08/03/25 13:24 Laboratory Tests 02/25/24 04/01/24 11/10/24 09:12 15:51 13:44 Creatinine 1.08 Estimated GFR > 60 Glucose (Clinic) 163 H Random Glucose 256 H Estimat Average Glucose 148 Hgb A1c (Clinic) Urine Creatinine 154.91 Urine Microalbumin 30.0 Microalb/Creat Ratio 19.3 11/10/24 01/19/25 05/01/25 13:51 14:17 15:08 Creatinine Estimated GFR Glucose (Clinic) 215 H 135 H Random Glucose Estimat Average Glucose Hgb A1c (Clinic) 7.2 H Urine Creatinine Urine Microalbumin Microalb/Creat Ratio 05/01/25 15:10 Creatinine Estimated GFR Glucose (Clinic) Random Glucose Estimat Average Glucose Hgb A1c (Clinic) 6.6 H Urine Creatinine Urine Microalbumin Microalb/Creat Ratio Assessment & Plan Assessment & Plan (1) Uncontrolled type 2 diabetes mellitus with hyperglycemia, with long-term current use of insulin: Code(s): E11.65 - Type 2 diabetes mellitus with hyperglycemia; Z79.4 - half-way (current) use of insulin Category: Medical Plan: lower novolog to 10 units continue lantus 20 units continue ozempic to 1 mg weekly (2) Uncontrolled hypertension: Code(s): I10 - Essential (primary) hypertension Category: Medical Plan: discussed going to ED but refuses. He is aware of the increased risk of an arrhythmia, heart attack, stroke, organ damage etc.. He is completely asymptomatic and states again that this is purely related to the pain and at home his blood pressures are normal. will start metoprolol 25 mg Message sent to PCP nurse advised to follow up with pcp to have rechecked in a couple weeks Orders: Orders AMB Hemoglobin A1c Today E11.65 - Type 2 diabetes mellitus with hyperglycemia, Z13.9 - Encounter for screening, unspecified Medications: New metoprolol succinate ER 25 mg PO DAILY 90 tabs 0RF Coding Level of Care Code Est Pt Level 4 (90982) Complex visit Add On G2211 Diagnoses Uncontrolled type 2 diabetes mellitus with hyperglycemia, with long-term current use of insulin E11.65; Z79.4 Uncontrolled hypertension I10
[2025-08-03 13:14] VITALS: BP 166/122; PULSE 125; O2SAT 96; BMI 35.2
[2025-08-03 13:28] LABS: Glucose, Whole Blood 189 mg/dL (60-115)
[2025-08-03 13:52] VITALS: BP 162/102; PULSE 110
--- OUTSIDE RECORDS SUMMARY | 2025-08-03 16:50 | XMS_ITS | Clinical Summary ---
Author Organization [facility] Address [address] [place] [address] Care Team Providers Care News Reporter Name Role Phone Marylu Estrada MD Primary Care Provider [phone] Surgical History Surgery Date Site/Laterality Comments APPENDECTOMY 2010 PROCEDURE: HISTORICAL APPENDECTOMY KIDNEY STONE SURGERY 2010 PROCEDURE: [place] NEPHROLITHOTOMY REMOVAL CALCULUS HEMORRHOID SURGERY 2010 PROCEDURE: DESTRUCTION OF HEMORRHOIDS COLONOSCOPY 08/14/12 [facility] PROCEDURE: HISTORICAL COLONOSCOPY; COMMENT: hemorrhoids; repeat under propofol in ten yrs ESOPHAGOGASTRODUODENOSCOPY 08/14/12 [facility] PROCEDURE: [place] ESOPHAGOGASTRODUODENOSCOPY TRANSORAL DIAGNOSTIC; COMMENT: Hiatus hernia Medical History Medical History Date Comments Asthma DX:Asthma; COMME NT: Frequent hospitalizations GI bleed DX:GI bleed; COM MENT: 99 - 4 untis - NSAID Abdominal pain DX:Abdominal christen n Opiate dependence (CMS/HCC V 24, CMS/HCC V28) 03/28/2012 DX:Opiate dependence ([facility]) Boxer's fracture DX:Boxer's frac ture Nephrolithiasis [...] Depression Screening 09/03/2024 COVID-19 Vaccine (1 - 2024-2 6 season) 2025 Influenza Vaccine (#1) 2025 RSV [...] age to complete this topic Care Teams News Reporter Relationship Specialty Start Date End Date Marylu Estrada MD [address] [place] [address] PCP - General Internal Medicine 10/01/12
--- OUTSIDE RECORDS SUMMARY | 2025-08-03 16:50 | XMS_ITS | Clinical Summary ---
Author Organization [facility] Address [address] [place] [address] Care Team Providers Care Managed Care Coordinator Name Role Phone Unavailable Primary Care Provider [...] 2024-2 6 season) 2025 Influenza (#1) 2025 RSV (1 - 1-dose 75+ series) 01/05/2044 HPV Vaccine (No Doses Required) Completed Hep A Aged Out No longer eligi ble based on patient's age to complete this topic Hib Aged Out No longer eligi ble based on patient's age to complete this topic Meningococcal ACWY Aged Out No longer eligible based on patient's age to complete this topic Insurance [facility] [employer] Member Subscriber Plan / Payer (Ef fective 2022-Present) Name:Kale Zhong Relation to Subscriber:Self Name:Kale Zhong Payer ID:[id number] (NAIC) Group ID:Not on file Type:HMO Address: [facility] [place] [place] [address] [place] [id number]
--- OUTSIDE RECORDS SUMMARY | 2025-08-03 16:50 | XMS_ITS | Clinical Summary ---
Author Organization [facility] Address [address] [place] [id number] Phone Care Team Providers Care Steam Shovel Runner Name Role Phone Good Harper MD Primary [...] on file Insurance MEDICARE REPLACEMENT MEDICARE [place] [address] [place] [address] * Guarantor: Kale Zhong Account Type Relation to Patient Date of Phone Billing Address Personal/Family Self [address] [place] [address] [place] [address] [place] [address] * Guarantor: Kale Zhong Account Type Relation to Patient Date of Phone Billing Address Personal/Family Self [address] [place] [address] [employer] MEDICARE REPLACEMENT Care Teams Steam Shovel Runner Relationship Specialty Start Date End Date Good Harper MD PCP - General Family Medicine 03/27/24 Additional Source Comments The information contained in this document represents components of the legal health record. It is not the complete legal health record.[facility]
--- OUTSIDE RECORDS SUMMARY | 2025-08-03 16:50 | XMS_ITS | Encounter Summary ---
Author Organization [facility] Address [address] [place] [address] Care Team Providers Care Gas Pumping Station Operator Name Role Phone Unavailable Primary Care Provider Unavailabl e Reason for Visit * Reason Comments Throat Problem Encounter Details Date Type Department Care Team ([facility] st Contact Info) Description 11/15/2016 Telephone [facility] [address] [address] Leah Bonner NP Throat Problem Social History [...] desk rapid strep will be removed from [facility] by the [facility] support team. He is placinga ticket as I accidentally resulted the rapid throat test under the wrong patient account. documented in this encounter Plan of Treatment Not on file documented as of this encounter Visit Diagnoses Not on filedocumented in this encounter
== END 2025-08-03 13:56 | disposition home or self-care (01) ==
LOC: HO.ENCR 13:11
PROVIDERS: PCP Family Medicine; Visit Provider Physician Assistant
DX: E11.65 Type 2 diabetes mellitus with hyperglycemia (principal); Z79.4 Long term (current) use of insulin; I10 Essential (primary) hypertension; Z13.9 Encounter for screening, unspecified

== ENCOUNTER → 2025-08-03 13:10 | Outpatient (BNVA) | payer OTHER, SELFPAY | PROVIDERS: PCP Family Medicine; Visit Provider Physician Assistant | DX: E11.65 Type 2 diabetes mellitus with hyperglycemia (principal); I10 Essential (primary) hypertension; Z79.4 Long term (current) use of insulin; Z79.899 Other long term (current) drug therapy | CPT/HCPCS: 82947; 83036; 99212 ==

== ENCOUNTER 2025-08-06 11:06 | Outpatient (REF) | payer OTHER, SELFPAY ==
--- NOTE | ~2025-08-06 | CT_ITS ---
EXAMINATION: CT CHEST WITHOUT CONTRAST CLINICAL INFORMATION: J18.9 - Pneumonia, unspecified organism COMPARISON: Chest CT on September 17, 2024 TECHNIQUE: Multidetector volumetric CT imaging of the chest was done. Axial MIP volume rendering provided. Sagittal and coronal reformatted images were obtained. This CT examination was performed using dose optimization techniques as appropriate, variously including the following: *Automated exposure control *Adjustment of mA and/or kV according to patient size (this includes techniques or standardized protocols for targeted exams where dose is matched to indication/reason for exam; i.e. extremities or head) *Use of iterative reconstruction technique FINDINGS: MANAGER EXCHANGE: No lines or tubes. LUNGS: Central airways are patent. Previously occluded segmental bronchus to the lingula is now patent, and the distal atelectasis has resolved. Persistent minor subsegmental atelectasis of the left lung base. No confluent consolidation. No suspicious pulmonary nodules. MEDIASTINUM: No thyroid nodules. Heart is normal in size. No pericardial effusion. No coronary artery calcifications. Scattered calcifications of the level of the aortic arch. PLEURA: No pneumothorax or pleural effusion. LYMPH NODES: No lymphadenopathy. UPPER ABDOMEN: Unremarkable. OSSEOUS STRUCTURES: No acute or suspicious osseous abnormality. CT/CT chest wo IV con IMPRESSION: No acute cardiopulmonary process. Electronically signed by: Flores Cochran MD 08/06/2025 12:[address] [facility]
== END 2025-08-06 11:07 | disposition home or self-care (01) ==
LOC: HO.CT 11:06
PROVIDERS: PCP Family Medicine; Visit Provider Hospitalist
DX: J18.9 Pneumonia, unspecified organism (principal)
CPT/HCPCS: 71250

== ENCOUNTER → 2025-08-06 11:07 | Outpatient (BNV) | payer OTHER, SELFPAY | PROVIDERS: PCP Family Medicine; Visit Provider Radiology Body Imaging | DX: J18.9 Pneumonia, unspecified organism (principal) | CPT/HCPCS: 71250 ==

== ENCOUNTER 2025-08-17 14:20 | Outpatient (AMB) | payer OTHER, SELFPAY ==
--- OUTSIDE RECORDS SUMMARY | 2025-06-04 08:45 | XMS_ITS ---
[facility] Organization [facility] Address [address] [place] [address] Care Team Providers Care Children Librarian Name Role Phone Good Harper MD Primary Care Provider Kiet Byrd Unavailable [phone] Allergies Allergen (clinical drug ingredient) Drug/Non Drug Allergy documented on EMR Reaction Allergy Type Onset Date Status Corona, Wheat, Oats (uncoded) Unknown Allergy Active ibuprofen Advil Unknown Drug Allergy Active Aleve Unknown Drug Allergy Active amoxicillin / clavulanate Augmentin Unknown Drug Allergy Active Motrin Unknown Drug Allergy Active Medications Medication SIG (Take, Route, Frequency, Duration) Notes Start Date End Date Status Clotrimazole 1 % 1 APPLICATION TWICE A DAY EXTERNALLY 7 DAY(S) External; Duration: 30 Not-Taking Sucralfate 1 GM/10ML 10 ML ON AN EMPTY STOMACH TWICE A DAY ORALLY 30 DAY(S) Oral; Duration: 30 Not-Taking predniSONE 10 MG TAKE SIX TABLETS SANTY LY FOR THREE DAYS, THEN GO DOWN BY 1 TABLET EVERY THREE DAYS TOTAL OF 18 DAYS Oral; Duration: 18 Not-Taking hydrOXYzine HCl 25 MG TAKE 1 TABLET BY M OUTH EVERY 8 HOURS NEEDED Oral; Duration: 30 Not-Taking Doxycycline Hyclate 100 MG TAKE 1 CAPSULE BY MOUTH TWICE A DAY FOR 7 DAYS Oral; Duration: 7 Not-Taking traMADol HCl Not-Ha ing Z Pac Not-Taking Prednisone Not-Takin g Physical Therapy . . . 2-3x/week; Duration: 3-4 weeks 04/28/2020 Not-Taking Nightsplint . . . AFO - L1930; Duration: . Not-Taking Cetirizine HCl 10 MG TAKE 1 TABLET BY [facility] EVERY DAY Oral; Duration: 90 Not-Taking Budesonide 0.5 MG/2ML INHALE 1 VIAL VIA NEBULIZER TWICE A DAY Inhalation; Duration: 90 Not-Taking Betamethasone Dipropionate 0.05 % APPLY TO THE AFFECTED AREAS ON THE LEGS TWICE DAILY FOR 2 WEEKS, BREAK ONE WEEK USE VASELINE, REPEAT External; Duration: 30 Not-Takin g Ammonium Lactate 12 % 1 application Externally to affected areas of dry skin to feet except for between the toes Twice a day; Duration: 30 days Active Losartan Potassium-HCTZ Not-Taking Extra Depth Orthopedic Shoes, (1) Pair With (3) Pair Custom Heat Molded Multidensity Innersoles Dx: NIDDM/PVD(E11.51), Hammertoe Foot Deformity(M20.41,M20.4 2), Preulcerative Skin Lesion(s)(L85.1) Wear Daily; Duration: 365 days 06/02/2024 Active Atorvastatin Calcium 20 MG 1 tablet Orally Once a day Active Omeprazole 20 MG 1 capsule 30 minutes before morning meal Orally Once a day Active Lisinopril 30 MG 1 tablet Orally Once a day Active Montelukast Sodium 10 MG 1 tablet Orally Once a day Active Dupixent 300 MG/2ML as directed Subcutaneous Active Lantus 20 units Active Albuterol Active Magnesium 1000mg Active NovoLOG 30 units Active Ozempic 25 units Active Social History Tobacco Use: Social History Observation Description Date Details (start date - stop date) Never Smoker NA - NA Tobacco use other than smoking: Question Answer Notes Are you an other tobacco user? No Tobacco Control (Standard) Question Answer Notes Tobacco use: Nonsmoker Encounters Encounter Location Date Provider Diagnosis [facility] [place] [address] [place] [phone] 06/04/2025 Kiet Sutherland Plan Of Treatment No Information Progress Notes * Kale ZHONGDOB:1970 (55 yo M)Acc No.[id number]:06/04/2025 Progress Note Patient: Gail VALENCIA Kale Provider: Tyler Sutherland DPM :1970 A ge:55 Y S ex:Male Date:06/04/2025 Address: [address] [facility], [id number] Pcp:Good Harper MD Subjective: * Chief Complaints: * * Medical History: A sthma, Back,Hip,and Knee pain, Diverticulosis, Hypertension, Reflux ( GERD), Stomach ulcer, Chicken pox, Transfusions, Diabetes mellitus. * Surgical History: a ppendectomy , kidney stones , stomach surgery . * Hospitalization/Major Diagno stic Procedure: H CT Scan Right Foot, X[place], [place]31/[place] [facility] [place] right leg to rule out DVT 01/23/20, C Ultra Sound Left Lower Extremity 12/29/19, C Ultra Sound Bilateral Lower Extremity 12/17/19, [facility] Raoul Dop Bilateral Lower Extremity 12/05/19, [facility] [place] Foot swelling 03/14/20, [facility] [place] can't walk 04/13/20, [facility] 04/23/20. * Family History: M other: , foot problems, diagnosed with Unspecified essential hypertension, Family history of arthritis. F ather: alive, diagnosed with Diabetic - NIDDM, Unspecified essential hypertension. S iblings: diagnosed with Other malignant neoplasm of unspecified site. * Social History: T obacco Use: T obacco use other than smoking A re you an other tobacco user? N o Tobacco Control (Standard) T obacco use: N onsmoker * Medications: T aking Ozempic , Notes to Pharmacist: 25 units, Taking Albuterol , Taking Lantus , Notes to Pharmacist: 20 units, Taking Dupixent 300 MG/2ML Solution Prefilled Syringe as directed Subcutaneous , Taking NovoLOG , Notes to Pharmacist: 30 units, Taking Magnesium , Notes to Pharmacist: 1000mg, Taking Montelukast Sodium 10 MG Tablet 1 tablet Orally Once a day , Taking Lisinopril 30 MG Tablet 1 tablet Orally Once a day , Taking Omeprazole 20 MG Capsule Delayed Release 1 capsule 30 minutes before morning meal Orally Once a day , Taking Atorvastatin Calcium 20 MG Tablet 1 tablet Orally Once a day , Taking Extra Depth Orthopedic Shoes, (1) Pair With (3) Pair Custom Heat Molded Multidensity Innersoles . Dx: NIDDM/PVD(E11.51), Hammertoe Foot Deformity(M20.41,M20.42), Preulcerative Skin Lesion(s)(L85.1) Wear Daily , Taking Ammonium Lactate 12 % Cream 1 application Externally to affected areas of dry skin to feet except for between the toes Twice a day , Not-Taking/PRN Betamethasone Dipropionate 0.05 % Ointment APPLY TO THE AFFECTED AREAS ON THE LEGS TWICE DAILY FOR 2 WEEKS, BREAK ONE WEEK USE VASELINE, REPEAT External , Not-Taking/PRN Budesonide 0.5 MG/2ML Suspension INHALE 1 VIAL VIA NEBULIZER TWICE A DAY Inhalation , Not- Taking/PRN Cetirizine HCl 10 MG Tablet TAKE 1 TABLET BY MOUTH EVERY DAY Oral , Not- Taking/PRN Losartan Potassium-HCTZ , Not-Taking/PRN Nightsplint . . . . AFO - L1930 , Not-Taking/PRN Physical Therapy . . . . 2-3x/week , Not-Taking/PRN Prednisone , Not-Taking/PRN Z Pac , Not-Taking/PRN traMADol HCl , Not-Taking/PRN Clotrimazole 1 % Cream 1 APPLICATION TWICE A DAY EXTERNALLY 7 DAY(S) External , Not-Taking/PRN Doxycycline Hyclate 100 MG Capsule TAKE 1 CAPSULE BY MOUTH TWICE A DAY FOR 7 DAYS Oral , Not-Taking/PRN hydrOXYzine HCl 25 MG Tablet TAKE 1 TABLET BY MOUTH EVERY 8 HOURS NEEDED Oral , Not-Taking/PRN predniSONE 10 MG Tablet TAKE SIX TABLETS DAILY FOR THREE DAYS, THEN GO DOWN BY 1 TABLET EVERY THREE DAYS TOTAL OF 18 DAYS Oral , Not-Taking/PRN Sucralfate 1 GM/10ML Suspension 10 ML ON AN EMPTY STOMACH TWICE A DAY ORALLY 30 DAY(S) Oral , Medication List reviewed and reconciled with the patient * Allergies: A dvil, Aleve, Motrin, Augmentin, Corona, Wheat, Oats. Objective: * Vitals: * P ast Orders: L ab:HEMOGLOBIN A1C (GLYCOHEMOGLOBIN) (Order Date - 10/06/2024) (Collection Date & Time - 12/04/2024 03:01 PM) Value Reference Range HEMOGLOBIN A1C % (HH) 7.2 * Examination: O phthalmology Referral: DIABETES EYE EXAM P rocedure Performed: Bianka Murphy ate of Exam Performed 1 10/13/2023 D iabetic Retinopathy Screening: Y es R etinal Screening Performed: Y dave F indings of Diabetic Eye Exam: n o retinopathy Assessment: Plan: * Treatment: * Images: * The named appointment provid er may or may not be the originator of this progress note, and it is not deemed complete until electronically signed by the appointment provider. Sign off status: Pending * Provider: Tyler Sutherland DPM Date: 1 Generated for Spike don/Trinity/Donnie on: 10/18/2024 08:43 PM EST History and Physical Notes * Examination Category Sub-Category Detail Notes Category Not es Ophthalmology Referral DIABETES EYE EXAM Procedu re Performed:: Yes Date of Exam Performed: 08/12/2024 Diabetic Retinopathy Screening:: Yes Retinal Screening Performed:: Yes Findings of Diabetic Eye Exam:: no retin opathy
[2025-08-17 14:24] VITALS: BP 134/72; PULSE 103; O2SAT 94; BMI 35.7
--- NOTE | 2025-08-17 14:24 | MHC.OFFVIS ---
Vital Signs 08/17/25 14:24 Height 5 ft 7 in Weight 228 lb 2.855 oz BMI 35.7 BP 134/72 Blood Pressure Location Lt brachial Position Sitting Pulse 103 H Pulse Source Pulse Oximeter Pulse Oximetry (%) 94 Oxygen Delivery Method Room Air Intake Visit Reasons: Asthma Armored Car Driver Required: No Database Management Specialist: Database Management Specialist offered & declined Accompanied by: Self / Same As Patient Allergies milk (MILK) Allergy (Severe, Verified 08/17/25 14:28) enterocolitis clindamycin Allergy (Intermediate, Verified 08/17/25 14:28) Vomiting wheat (WHEAT) Allergy (Intermediate, Verified 08/17/25 14:28) enterocolitis amoxicillin (From AUGMENTIN) Adverse Reaction (Intermediate, Verified 08/17/25 14:28) N/V clavulanic acid (From AUGMENTIN) Adverse Reaction (Intermediate, Verified 08/17/25 14:28) N/V corn Adverse Reaction (Mild, Verified 08/17/25 14:28) Nausea and Vomiting NSAIDS (Non-Steroidal Anti-Inflamma (NSAIDS) Adverse Reaction (Mild, Verified 08/17/25 14:28) ULCERS oats Adverse Reaction (Mild, Verified 08/17/25 14:28) Abdominal Pain HPI Comments Details: The patient is a 55-year-old gentleman with severe persistent asthma. He he has had previous intubations in the past for status asthmaticus. More recently he has had multiple bouts of prednisone tapers for his significant persistent symptoms. The patient has been using his current respiratory medications with very good adherence. However, still requiring short-acting beta agonists several times a day. He also uses nebulizer. At this point the patient is failing outpatient therapy with uncontrolled asthma. Has significant wheezing on examination. Also has significant allergies. A previous blood work is IgE levels had been noted to be elevated and also had some degree of eosinophilia. More recently he was evaluated by Allergy. He will be following up with them soon. Therefore, we will continue awaiting their recommendations. He also had pulmonary function studies demonstrating severe obstruction consistent with severe uncontrolled asthma. We did evaluate his blood work demonstrating the elevations in his eosinophils. The patient also has elevations in his eosinophils. Based on these findings and is positive allergy testing the patient is a great candidate for biologic therapy with Dupixent. 11/04/2020 the patient is here for a preoperative evaluation. Overall the patient has been doing very good from a respiratory status. He has been off all prednisone. Patient is continue with Dupixent every 2 weeks. He is continue with respiratory therapy as prescribed with good adherence. He has not required his nebulized therapy. He has been having issues with his hemorrhoids and will undergo surgery tomorrow. However due to his respiratory condition a preop was requested. The patient has been feeling well. He does have some cough but is nonproductive intubated in nature. He has been able to walk and go up a lot of stairs without any difficulty. In the office he did to spirometry with an FEV1 to FVC of 61% and FEV1 of 56% predicted. This is consistent with moderate COPD. Overall lot better for him. At this point the patient is medically optimized from a respiratory status. In regards to a surgical standpoint due to his respiratory issues he would benefit from avoiding general anesthesia to minimize bronchospasms and difficulty with per status if possible. Either LMA or spinal would be appropriate. However, if the alternatives are not available I do believe that based on his current respiratory status and is optimize state the patient is able to tolerate general anesthesia. Due to his moderate obstruction the patient does have increased perioperative pulmonary complications which include, atelectasis, hypoxia prolonged mechanical ventilation and also pneumonia. Again, patient is medically optimized and may able to pursue with surgery and anesthesia. 10/05/2023 the patient has a pulmonary visit today. Overall he is doing better from a respiratory status. He continues to Dupixent every 2 weeks with very good response. He does continue to use his maintenance therapy which includes Singulair and Combivent. The patient has not required any prednisone. He does have some dyspnea on exertion mild in severity. Also has an intermittent cough. That typically is nonproductive in nature. Otherwise he is without any other respiratory complaints. 05/15/2024 the patient is here for a pulmonary follow-up visit. He is having hard time sinusitis. Was evaluated several weeks ago because the sinusitis and is still not better. He has a hard time breathing through his nose. He has noticed some increased bloody drainage primarily from the right nares. He is getting some irritation and headaches. Sinus pressure is uncomfortable moderate severity. He is concerned that the symptoms are going to continue dripping down affecting his asthma. The patient will go ahead and get x-rays at this time for his sinuses. He already has some wheezing on examination. Therefore will go ahead and start him on some prednisone and will start him on Afrin for 5 days. The patient does have a blood pressure therefore the he can not use Sudafed. Will put him on Levaquin. If the patient is doing better he will call. At that point will go ahead and refer him to ENT and also request a CT scan of the sinuses. He will continue with Dupixent injection at this time. He will continue with his respiratory therapy as prescribed. The patient follow-up in 3-4 weeks. 08/20/2024 the patient is here for a pulmonary follow-up visit. He is very aggravated today as he has had a bad interaction with another individual and caused him to have significant stress and anger. Therefore when he came in his blood pressure is significantly elevated. I did check her myself in the left arm his blood pressure was 210 over 110 and his right arm 195/110. We did recommend patient go to the ER because this could be potentially life-threatening can end up with a heart attack or stroke but he is reluctant that he does not want to go anywhere that he wants to be by himself. He understands the severity of not getting this blood pressure taking care of and the concerns and potential outcomes from having this elevated blood pressure for too long. In the meantime his x-ray was also done of the chest. He still has some slight opacity to the left lower lung where he was treated for pneumonia. He has another day of antibiotics. I will give another course but also will request a CT scan this point because the CT scan will be able to address better those changes that we see on the x-ray specially since they are persistent have not improved since his previous x-ray. He will continue with current respiratory therapy will follow-up in 23 months. Feels any issues prior to that he will call for an earlier assessment. 11/25/2024 the patient is here for pulmonary follow-up visit. He has multiple complaints including his musculoskeletal issues of his leg and his hip and his back. This does bother her in in prevents him from having a good quality of life. Breathing brown he is doing okay. He does use his respiratory medications as prescribed and he has continued with the biologic therapy with good response. He still does have dyspnea on exertion and does has a productive cough. [id number] severity. Because of his ongoing respiratory issues we had requested a CT scan of the chest. It demonstrated that he does have an area of atelectasis in the lingula with what appears to be plugging of a airway. Most likely mucus although can not rule out endobronchial disease. Therefore, we did talk about considering a bronchoscopy. The patient was agreeable to this and therefore will go ahead and request a diagnostic bronchoscopy see if there is anything else does potentially blocking that airway. And while were there we can do some therapeutic cleaning of the airways to remove any mucus plugs that may be affecting his pulmonary capacity. 02/24/2025 the patient is here for pulmonary follow-up visit. Overall he is doing okay. Still complains of significant aches musculoskeletal discomfort after her surgery. He has a hard time walking hard time with his back. His blood pressure was elevated today but it feels like his because he did more walking today and had to be in the car sitting longer and it caused significant amount of pain discomfort. He will have his blood pressure checked again when he goes to his primary care doctor soon. From a respiratory status he is tends to be responding very well to the Dupixent. He continues uses respiratory medications as prescribed. However, he does have increased allergy symptoms. Will go ahead and start him on additional antihistamine therapy. Will follow-up in 6 months. If he has any issues prior to this he will call for an earlier assessment. Was scheduled for bronchoscopy but he had to cancel because other issues. Will go ahead and request a knee additional imaging and we can discuss during the next visit if bronchoscopy is warranted. We will request a repeat CT chest to reassess lingular obstruction. 08/17/2025 the patient is here for pulmonary follow-up visit. Overall he is feeling little bit better. His cough is better. Still having nasal congestion. The patient did have a CT scan of the chest in August I did personally reviewed and also compared to his CAT scan from September. Was supposed to undergo a bronchoscopy however the patient had to reschedule. At this point it appears that the CAT scan is a little improved. Demonstrating some interval resolution of the lingular obstruction. Still has an opacity though. Will plan to continue with the current therapy work on CPT and plan to repeat the CAT scan again in the springtime. He is also going to go undergo surgery for his hip sometime in October. So the 4 will let him recover then do CAT scan sometime after that. He will continue with the current respiratory therapy and from a pulmonary standpoint the patient may be able to proceed with anesthesia and Orthopedic surgery at this time. [facility] Medical History (Updated 06/09/25 @ 22:04 by Tera Ayoub DPM) Atelectasis of left lung Abnormal chest x-ray Dyslipidemia Uncontrolled type 2 diabetes mellitus with hyperglycemia, with long-term current use of insulin Chronic allergic rhinitis Diabetes Complex regional pain syndrome I Deficient knowledge of leg surgery home care Sinusitis Pre-op evaluation Methadone use GERD (gastroesophageal reflux disease) History of kidney stones Internal and external bleeding hemorrhoids Severe persistent asthma Sciatica Arthritis Anemia Hiatal hernia Dysphagia Hepatitis C COPD (chronic obstructive pulmonary disease) HTN (hypertension) History of drug abuse Cellulitis Surgical History History of ERCP History of common bile duct surgery History of hemorrhoidectomy Hx of endoscopy History of colonoscopy History of laparoscopy History of appendectomy Family History Father Diabetes Hypertension Mother Hypertension Social History Housing: Apartment Are you a primary post acute care nurse practitioner to a significant other at home: No Do you presently have visiting nurse or other home services: No Alcohol intake: never Comment: cramping, relieved partially after using bathroom Patient Tobacco Use Status: Former Tobacco user Tobacco use type: Cigarette e-Cigarette/Vaping Use: Never Used Second Hand Smoke Exposure: No Substance Use Type: Opiates service: No Current occupational status: unemployed Current occupational exposures/hazards: No Cognitive needs: No Hearing needs: No Vision needs: Yes Review of Systems Const Denies chills, Denies fever(s) and Denies headache(s) ENT Denies headache(s), Denies epistaxis, Reports nasal congestion, Reports nasal discharge, Reports nasal obstruction, Reports post nasal drip, Denies sinus pain and Denies sinus pressure Card Denies chest pain Resp Denies change in phlegm color, Reports cough and Denies wheezing GI Denies change in bowel habits and Reports constipation Denies hematuria and Denies difficulty urinating Musc Reports abnormal gait, Denies back pain, Reports arthralgias, Reports joint swelling and Reports limited range of motion Neuro Reports abnormal gait, Denies headache(s), Denies focal weakness and Denies convulsions Psych Denies depression, Reports irritability (upset) and Denies mood swings Irving/Lymph Denies lymphadenopathy Aller/Immun Denies wheezing Physical Exam Vital Signs: Last Vital Signs Pulse 103 H 08/17/25 14:24 BP 134/72 08/17/25 14:24 Pulse Ox 94 08/17/25 14:24 Oxygen Delivery Method Room Air 08/17/25 14:24 BMI result Body Mass Index 35.7 Const General: alert HEENT Head: Yes other (has a mask) Neck Neck: Yes normal visual inspection, Yes full ROM and Yes no lymphadenopathy Chest Chest palpation & inspection: normal inspection of the chest Resp Effort & Inspection: normal respiratory effort Auscultation: diminished lung sounds Cardio Rate: tachycardic Rhythm: regular rhythm Heart sounds: S1 normal heart sound present and S2 normal heart sound present GI Palpation (GI): Soft to palpation and nontender Auscultation: normal bowel sounds Assessment & Plan Assessment & Plan (1) Asthma: Code(s): J45.909 - Unspecified asthma, uncomplicated Category: Medical Qualifiers: Asthma complication type: uncomplicated Asthma persistence: persistent Asthma severity: severe Qualified Code(s): J45.50 - Severe persistent asthma, uncomplicated (2) GERD (gastroesophageal reflux disease): Code(s): K21.9 - Gastro-esophageal reflux disease without esophagitis Category: Medical Qualifiers: Esophagitis presence: without esophagitis Qualified Code(s): K21.9 - Gastro-esophageal reflux disease without esophagitis (3) Chronic allergic rhinitis: Code(s): J30.9 - Allergic rhinitis, unspecified Category: Medical (4) Atelectasis of left lung: Code(s): J98.11 - Atelectasis Category: Medical Plan continue Dupixent 300mg [id number] Continue allergy therapy: singulair and zyrtec continue Duonebs as needed continue Advair HFA 230/21 2 puff BID reflux diet allergy therapy Repeat CT scan of the chest spring f/U 4-6 months Orders: Orders CT chest wo IV con 12/31/25 J98.11 - Atelectasis Coding Level of Care Code Est Pt Level 4 (60749) Diagnoses Severe persistent asthma without complication J45.50 Asthma complication type: uncomplicated Asthma persistence: persistent Asthma severity: severe Gastroesophageal reflux disease without esophagitis K21.9 Esophagitis presence: without esophagitis Chronic allergic rhinitis J30.9 Atelectasis of left lung J98.11 Time Spent (min) 17
--- OUTSIDE RECORDS SUMMARY | 2025-08-17 20:43 | XMS_ITS | Clinical Summary ---
Author Organization [facility] Address [address] [place] [address] Care Team Providers Care Gas Well Pumper Name Role Phone Marylu Estrada MD Primary Care Provider [phone] Surgical History Surgery Date Site/Laterality Comments APPENDECTOMY 2010 PROCEDURE: HISTORICAL APPENDECTOMY KIDNEY STONE SURGERY 2010 PROCEDURE: [place] NEPHROLITHOTOMY REMOVAL CALCULUS HEMORRHOID SURGERY 2010 PROCEDURE: DESTRUCTION OF HEMORRHOIDS COLONOSCOPY 08/14/12 [facility] PROCEDURE: HISTORICAL COLONOSCOPY; COMMENT: hemorrhoids; repeat under propofol in ten yrs ESOPHAGOGASTRODUODENOSCOPY 08/14/12 [facility] PROCEDURE: [place] ESOPHAGOGASTRODUODENOSCOPY TRANSORAL DIAGNOSTIC; COMMENT: Hiatus hernia Medical History Medical History Date Comments Asthma DX:Asthma; COMME NT: Frequent hospitalizations GI bleed DX:GI bleed; COM MENT: 99 - 4 untis - NSAID Abdominal pain DX:Abdominal christen n Opiate dependence (CMS/HCC V 24, CMS/HCC V28) 03/28/2012 DX:Opiate dependence ([facility]) Boxer's [...] age to complete this topic Care Teams Gas Well Pumper Relationship Specialty Start Date End Date Marylu Estrada MD [address] [place] [address] PCP - General Internal Medicine 10/01/12
--- OUTSIDE RECORDS SUMMARY | 2025-08-17 20:43 | XMS_ITS | Clinical Summary ---
Author Organization [facility] Address [address] [place] [id number] Phone Care Team Providers Care Tanyard Worker Name Role Phone Good Harper MD [...] Insurance MEDICARE REPLACEMENT [place]ICARE [place] [address] [address] [place] [address] [place] [address] * Guarantor: Kale Zhong Account Type Relation to Patient Date of Phone Billing Address Personal/Family Self [address] [place] [address] [place] [address] [employer] MEDICARE REPLACEMENT Care Teams Tanyard Worker Relationship Specialty Start Date End Date Good Harper MD PCP - General Family Medicine 03/27/24 Additional Source Comments The information contained in this document represents components of the legal health record. It is not the complete legal health record.[facility]
--- OUTSIDE RECORDS SUMMARY | 2025-08-17 20:43 | XMS_ITS | Encounter Summary ---
Author Organization [facility] Address [address] [place] [address] Care Team Providers Care Metal Furniture Panel Coverer Name Role Phone Unavailable Primary Care Provider Unavailabl e Reason for Visit * Reason Comments Throat Problem Encounter Details Date Type Department Care Team ([facility] st Contact Info) Description 11/15/2016 Telephone [facility] [address] [address] Leah Bonner NP Throat Problem Social History [...] desk rapid strep will be removed from [facility] by the [facility] support team. He is placinga ticket as I accidentally resulted the rapid throat test under the wrong patient account. documented in this encounter Plan of Treatment Not on file documented as of this encounter Visit Diagnoses Not on filedocumented in this encounter
--- OUTSIDE RECORDS SUMMARY | 2025-08-17 20:43 | XMS_ITS | Clinical Summary ---
Author Organization [facility] Address [address] [place] [address] Care Team Providers Care Residential Manager Name Role Phone Unavailable Primary Care [...] patient's age to complete this topic Insurance [facility] FFS ONE CARE
--- OUTSIDE RECORDS SUMMARY | 2025-08-17 20:44 | XMS_ITS | Patient Health Record ---
Author [facility] Address [address] [place] [address] Care Team Providers Care Soda Tester Name Role Phone Good Harper MD Primary Care Provider Kiet Byrd Unavailable [phone] Allergies Allergen (clinical drug ingredient) Drug/Non Drug Allergy documented on EMR Reaction Allergy Type Onset Date Status [place], Wheat, Oats (uncoded) Unknown Allergy Active ibuprofen [...] Problem Acquired hammer toe of right foot (4004053150399 105) Other hammer toe(s) (acquired), right foot (M20.41) Active confirmed Response to treatment,I mprovement Problem Acquired hammer toe of left foot (0813532762308 103) Other hammer toe(s) (acquired), left foot (M20.42) Active confirmed Response to treatment,I mprovement Problem Type 2 diabetes mellitus with peripheral angiopathy ([id number]) Type 2 diabetes mellitus with diabetic peripheral angiopathy without gangrene (E11.51) Active confirmed Q7(A), Q8(2B), Q9(1B,2C) Vital Signs Blood pressure diastolic 60 mm Hg 03/05/2025 Height 5ft7in in 03/05/2025 Blood pressure systolic 137 mm Hg 03/05/2025 Weight 220 lbs 03/05/2025 BMI 34.45 kg/m2 03/05/2025 Procedures Procedure Date Ordered Date Performed Result Body Sit e 02349-MCGMITJ NAIL, 1-5 09/08/2024 N/A 89321-EVSR SKIN LESIONS, 2 TO 4 09/08/2024 N/A F2577-IFKQSRVA DYSTROPHIC NAILS ANY # 09/08/2024 N/A 43595-HMWGXSE NAIL, 1-5 12/04/2024 N/A 62088-GLIZ SKIN LESIONS, 2 TO 4 12/04/2024 N/A O0599-CEMHQHMN DYSTROPHIC NAILS ANY # 12/04/2024 N/A 65001-QUBMNJZ NAIL, 1-5 03/05/2025 N/A 14058-CDGB SKIN LESIONS, 2 TO 4 03/05/2025 N/A K0670-OFHOZSMR DYSTROPHIC NAILS ANY # 03/05/2025 N/A Encounters Encounter Location Date Provider Diagnosis [facility] [address] [address] 09/08/2024 Kiet Zuletaunier Type 2 diabetes mellitus with diabetic peripheral angiopathy without gangrene E11.51 ; Tinea unguium B35.1 ; Pain in right toe(s) M79.674 ; Pain in left toe(s) M79.675 and Xerosis of skin L85.[address] [address] 12/04/2024 Kiet Sutherland Type 2 diabetes mellitus with diabetic peripheral angiopathy without gangrene E11.51 ; Tinea unguium B35.1 ; Pain in right toe(s) M79.674 ; Pain in left toe(s) M79.675 ; Xerosis of skin L85.3 ; Other hammer toe(s) (acquired), right foot M20.41 and Other hammer toe(s) (acquired), left foot M20.[address] [address] 03/05/2025 Kiet Sutherland Tinea unguium B35.1 ; Type 2 diabetes mellitus with diabetic peripheral angiopathy without gangrene E11.51 ; Pain in right toe(s) M79.674 and Pain in left toe(s) M79.[address] [address] 06/04/2025 [facility] [address] [address] 08/20/2024 Kiet Ena [address] [address] 10/24/2024 [facility] [address] [address] 08/11/2025 Kiet Sutherland Assessments Encounter Date Diagnosis (ICD [...] Treatment Pending Test Test Name Order Date 99508-TBVYHPV NAIL, 1-5 06/02/2024 82738-WVPADPX NAIL, 1-5 09/08/2024 06110-HEFBBLV NAIL, 1-5 12/04/2024 34609-UPZEZZZ NAIL, 1-5 03/05/2025 89938-CAQE SKIN LESIONS, 2 TO 4 03/05/20 25 10891-ZRLO SKIN LESIONS, 2 TO 4 06/02/20 24 68942-EGDP SKIN LESIONS, 2 TO 4 12/05/19 25 14287-AFEJ SKIN LESIONS, 2 TO 4 09/08/19 25 R6663-AWRTQSDN DYSTROPHIC NAILS ANY # W4883-BLNILKWT DYSTROPHIC NAILS ANY # S2208-VFLIWBRE DYSTROPHIC NAILS ANY # K6185-OTBVFXBC DYSTROPHIC NAILS ANY # 68892,D1120-ZBC TENDON SHEATH/LIGAMENT 0 03/18/202018792,J4375-SRH TENDON SHEATH/LIGAMENT 0 04/15/202026270,D6414-DOU TENDON SHEATH/LIGAMENT 0 04/19/2020 Insurance Providers Payer Name Payer Address Payer Phone Subscriber Number Group Number Insured Name Patient Relationship to Insured Coverage Start Date Coverage End Date [facility] [employer] Claims [address] [place] [id number] Kale Zhong Self - patient is the insured Medical (General) History Medical History History ICD Code asthma Back,Hip,and Knee pain Diverticulosis Hypertension Reflux ( GERD) Stomach ulcer Chicken pox Transfusions Diabetes mellitus Surgical History Surgery Date(Month/Year) appendectomy kidney stones stomach surgery Hospitalization History Reason Date(Month/Year) [facility] 04/23/20 [facility] [place] walk 04/13/20 [facility] Foot swelling 03/14/20 [facility] [place] Sound Raoul Dop Bilateral Lower Extremity 12/05/19 [facility] [place] Bilateral Lower Extremit y 12/17/19 [facility] [place] Sound Left Lower Extremity 12/03 03/22 [facility] Venous Ultra Sound right leg to rule out DVT 01/23/20 [facility] [place] Scan Right Foot, Xray Right foot, 10/31/19
== END 2025-08-17 14:45 | disposition home or self-care (01) ==
LOC: HO.HPS 14:20
PROVIDERS: PCP Family Medicine; Visit Provider Hospitalist
DX: J45.50 Severe persistent asthma, uncomplicated (principal); K21.9 Gastro-esophageal reflux disease without esophagitis; J30.9 Allergic rhinitis, unspecified; J98.11 Atelectasis
CPT/HCPCS: 99214

== ENCOUNTER → 2025-08-17 14:20 | Outpatient (BNVA) | payer OTHER, SELFPAY | PROVIDERS: PCP Family Medicine; Visit Provider Hospitalist | DX: J45.40 Moderate persistent asthma, uncomplicated (principal); K21.9 Gastro-esophageal reflux disease without esophagitis; J30.9 Allergic rhinitis, unspecified; J98.11 Atelectasis; Z87.891 Personal history of nicotine dependence; Z79.899 Other long term (current) drug therapy | CPT/HCPCS: 99212 ==